=== PATIENT | female | born 1945 | race Caucasian/White ===

== ENCOUNTER 2018-01-06 09:11 | Inpatient (IN) | payer MEDICARE, OTHER ==
--- NOTE | 2018-01-06 09:49 | EDM.PDOC ---
ED HPI GENERAL MEDICAL PROBLEM - General Chief Complaint: General Stated Complaint: cough Time Seen by Provider: 01/06/18 09:20 Source of Information: Reports: Patient History Limitations: Reports: Respiratory Distress - History of Present Illness INITIAL COMMENTS - FREE TEXT/NARRATIVE: Patient is a 72-year-old female who is seen in the ER with chief complaint of shortness of breath this started about a week ago and has progressed today she is hypoxic running saturations around 89 percent Onset: Gradual Duration: Week(s):, Getting Worse Location: Reports: Chest Quality: Reports: Ache, Pressure Severity: Moderate Improves with: Reports: None Worsens with: Reports: Movement (Activities) Associated Symptoms: Reports: Fever/Chills Right Hip Pain Score (Numeric/FACES): 2 Right Ankle Pain Score (Numeric/FACES): 2 - Related Data Allergies Allergy/AdvReac Type Severity Reaction Status Date / Time diphenhydramine Allergy Other Verified 01/06/18 09:17 [From Benadryl] egg Allergy Other Verified 01/06/18 09:17 nitrofurantoin Allergy Rash Verified 01/06/18 09:17 [From Macrodantin] Penicillins Allergy Rash Verified 01/06/18 09:17 pseudoephedrine Allergy Other Verified 01/06/18 09:17 Sulfa (Sulfonamide Allergy Rash Verified 01/06/18 09:17 Antibiotics) tetracycline Allergy Rash Verified 01/06/18 09:17 Home Meds: Home Meds Acetaminophen [Pain Reliever] 1,000 mg PO Q8HR PRN 01/06/18 [History] Calcium Carbonate [Calcium] 1,000 mg PO DAILY 01/06/18 [History] Cholecalciferol (Vitamin D3) [Vitamin D3] 1,000 unit PO DAILY 01/06/18 [History] Doxazosin [Cardura] 4 mg PO DAILY 01/06/18 [History] Garlic 2,000 mg PO DAILY PRN 01/06/18 [History] Ibuprofen 200 mg PO Q8HR PRN 01/06/18 [History] Methylsulfonylmethane [MSM] 1 cap PO DAILY 01/06/18 [History] Social & Family History - Tobacco Use Smoking Status *Q: Never Smoker Second Hand Smoke Exposure: No - Caffeine Use Caffeine Use: Reports: Coffee - Recreational Drug Use Recreational Drug Use: No ED ROS GENERAL - Review of Systems Review Of Systems: See Below Constitutional: Reports: Fever (Low-grade) HEENT: Reports: No Symptoms Respiratory: Reports: Shortness of Breath, Wheezing Cardiovascular: Reports: No Symptoms Endocrine: Reports: No Symptoms GI/Abdominal: Reports: No Symptoms : Reports: No Symptoms Musculoskeletal: Reports: Joint Pain (Right ankle) Skin: Reports: No Symptoms Neurological: Reports: No Symptoms Psychiatric: Reports: No Symptoms Hematologic/Lymphatic: Reports: No Symptoms ED EXAM, GENERAL - Physical Exam Exam: See Below Exam Limited By: No Limitations General Appearance: Alert, WD/WN, No Apparent Distress Ears: Normal External Exam, Normal Canal, Hearing Grossly Normal, Normal TMs Nose: Normal Inspection, Normal Mucosa, No Blood Throat/Mouth: Normal Inspection, Normal Lips, Normal Teeth, Normal Gums, Normal Oropharynx, Normal Voice, No Airway Compromise Head: Atraumatic, Normocephalic Neck: Normal Inspection, Supple, Non-Tender, Full Range of Motion Respiratory/Chest: Decreased Breath Sounds, Wheezing (Expiratory), Stridor ( Inspiratory), Prolonged Expiration Cardiovascular: Regular Rate, Rhythm, No Edema, No Murmur GI/Abdominal: Normal Bowel Sounds, Soft, Non-Tender, No Organomegaly, No Distention, No Abnormal Bruit, No Mass (Female) Exam: Deferred Rectal (Female) Exam: Deferred Back Exam: Normal Inspection, Full Range of Motion, NT Extremities: Normal Inspection, Normal Range of Motion, Non-Tender, Normal Capillary Refill, No Pedal Edema Neurological: Alert, Oriented, CN II-XII Intact, Normal Cognition Psychiatric: Normal Affect, Normal Mood Skin Exam: Warm, Dry, Intact, Normal Color, No Rash Lymphatic: No Adenopathy Course - Vital Signs Last Recorded V/S: Last Vital Signs Temp 99.0 F 01/06/18 09:33 Pulse 91 01/06/18 09:33 Resp 18 01/06/18 09:33 BP 179/78 H 01/06/18 09:33 Pulse Ox 90 L 01/06/18 09:33 - Orders/Labs/Meds Orders: Active Orders 24 hr Category Date Time Status Chest 2V [CR] Stat Exams 01/06/18 09:28 Ordered BASIC METABOLIC PANEL,BMP [CHEM] Stat Lab 01/06/18 09:33 Received Labs: Laboratory Tests 01/06/18 Range/Units 09:33 WBC 4.3 (4.0-10.2) K/uL RBC 4.35 (3.77-5.09) M/uL Hgb 12.5 (11.7-15.5) g/dL Hct 37.4 (34.0-46.0) % MCV 86.0 (84.0-98.0) fL MCH 28.7 (28.2-33.3) pg MCHC 33.4 (31.7-36.0) g/dL RDW 13.7 (11.2-14.1) % Plt Count 167 (150-350) K/uL Neut % (Auto) 73.8 (45.0-80.0) % Lymph % (Auto) 15.2 (10.0-50.0) % [place] % (Auto) 9.6 (2.0-14.0) % Eos % (Auto) 0.9 (0.0-5.0) % Baso % (Auto) 0.5 (0.0-2.0) % Neut # (Auto) 3.17 (1.40-7.00) K/uL Lymph # (Auto) 0.65 (0.50-3.50) K/uL [place] # (Auto) 0.41 (0.00-1.00) K/uL Eos # (Auto) 0.04 (0.00-0.50) K/uL Baso # (Auto) 0.02 (0.00-0.20) K/uL Departure - Departure Time of Disposition: 10:43 Disposition: Refer to Observation Condition: Fair Clinical Impression: Hypoxic, COPD exacerbation - Discharge Information Referrals: Boone Crowell [facility] [Primary Care Provider] - Care Plan Goals: Patient will be admitted to the hospital for treatment of acute COPD with hypoxia - Problem List & Annotations (1) COPD (chronic obstructive pulmonary disease) SNOMED Code(s): 04150001 Code(s): J44.9 - CHRONIC OBSTRUCTIVE PULMONARY DISEASE, UNSPECIFIED Status : Acute Qualifiers: COPD type: COPD with acute exacerbation Qualified Code(s): J44.1 - Chronic obstructive pulmonary disease with (acute) exacerbation (2) COPD exacerbation SNOMED Code(s): 434314613 Code(s): J44.1 - CHRONIC OBSTRUCTIVE PULMONARY DISEASE W (ACUTE) EXACERBATION Status: Acute Annotation/Comment:: 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 Patient is lightheaded (4) Hypokalemia SNOMED Code(s): 60012461 Code(s): E87.6 - HYPOKALEMIA Status: Acute Annotation/Comment:: Will treat her with oral potassium and recheck labs in the morning (5) Hyponatremia SNOMED Code(s): 53951441 Code(s): E87.1 - HYPO-OSMOLALITY AND HYPONATREMIA Status: Acute Annotation/Comment:: Patient given Lasix will probably increase his sodium will put her on a liberal sodium diet - Problem List Review Problem List Initiated/Reviewed/Updated: Yes - My Orders Last 24 Hours: My Active Orders 01/06/18 09:28 Chest 2V [CR] Stat 01/06/18 09:33 BASIC METABOLIC PANEL,BMP [CHEM] Stat - Assessment/Plan Admission H&P: Please use this note as an admission H&P Last 24 Hours: My Active Orders 01/06/18 09:28 Chest 2V [CR] Stat 01/06/18 09:33 BASIC METABOLIC PANEL,BMP [CHEM] Stat Plan: Patient will be admitted to the hospital observation because of hypoxia secondary to COPD
[2018-01-06] MEDS ORDERED: Albuterol/Ipratropium 3.0-0.5 MG/3 ML Neb Soln NEB ONE (09:50)
[2018-01-06 09:52] LABS: CHLORIDE,CL 96 mmol/L (98-107); SODIUM,NA 131 mmol/L (136-145)
[2018-01-06] MEDS ORDERED: Potassium Chloride 10 MEQ Tab.ER PO ONE (10:05)
[2018-01-06] MEDS ORDERED: Furosemide 40 MG/4 ML VIAL IVPUSH ONE (10:06)
[2018-01-06] MEDS: Sodium Chloride 0.9% 10 ML Syringe FLUSH PRN ×3 (10:21→22:40)
[2018-01-06] MEDS ORDERED: methylPREDNISolone Sod Succ 125 MG in Sodium Chloride 0.9% 100 ML IV SCH (12:00)
[2018-01-06] MEDS: methylPREDNISolone Sodium Succinate 125 MG/2 ML SDV IVPUSH SCH ×3 (12:43→22:40)
[2018-01-06] MEDS: Potassium Chloride 10 MEQ Tab.ER PO SCH (18:57)
[2018-01-07] MEDS: methylPREDNISolone Sodium Succinate 125 MG/2 ML SDV IVPUSH SCH ×5 (07:13→21:02)
[2018-01-07] MEDS: Enoxaparin 40 MG/0.4 ML Syringe SUBCUT SCH (07:13)
[2018-01-07] MEDS: Potassium Chloride 10 MEQ Tab.ER PO SCH ×2 (07:27→17:32)
[2018-01-07] MEDS ORDERED: Furosemide 40 MG Tab PO SCH (08:00)
[2018-01-07 08:02] LABS: CHLORIDE,CL 96 mmol/L (98-107); SODIUM,NA 133 mmol/L (136-145)
[2018-01-07] MEDS: Sodium Chloride 0.9% 10 ML Syringe FLUSH PRN ×2 (11:54→21:02)
--- NOTE | 2018-01-07 14:47 | PCM.PN ---
- General Info Date of Service: 01/07/18 Functional Status: Reports: Other (Hypoxia shortness of breath) - Review of Systems General: Reports: No Symptoms HEENT: Reports: No Symptoms Pulmonary: Reports: Shortness of Breath, Wheezing Cardiovascular: Reports: No Symptoms Gastrointestinal: Reports: No Symptoms Genitourinary: Reports: No Symptoms Musculoskeletal: Reports: No Symptoms Skin: Reports: No Symptoms Neurological: Reports: No Symptoms Psychiatric: Reports: No Symptoms - Patient Data Vitals - Most Recent: Last Vital Signs Temp 99 F 01/07/18 12:00 Pulse 103 H 01/07/18 12:00 Resp 20 01/07/18 12:00 BP 155/85 H 01/07/18 12:00 Pulse Ox 94 L 01/07/18 12:00 Weight - Most Recent: 165 lb 4 oz I&O - Last 24 Hours: Intake & Output 01/06/18 01/07/18 01/07/18 22:59 06:59 14:59 Intake Total 794 930 9489 Output Total 350 700 450 Balance -120 -400 1030 Lab Results Last 24 Hours: Laboratory Results - last 24 hr 01/07/18 01/07/18 01/07/18 Range/Units 07:37 07:37 07:37 WBC 6.4 (4.0-10.2) K/uL RBC 4.80 (3.77-5.09) M/uL Hgb 13.7 (11.7-15.5) g/dL Hct 40.7 (34.0-46.0) % MCV 84.8 (84.0-98.0) fL MCH 28.5 (28.2-33.3) pg MCHC 33.7 (31.7-36.0) g/dL RDW 13.7 (11.2-14.1) % Plt Count 229 (150-350) K/uL MPV 9.80 (7.00-11.50) fL Sodium 133 L (136-145) mmol/L Potassium 3.8 (3.5-5.1) mmol/L Chloride 96 L (98-107) mmol/L Carbon Dioxide 28.9 (21.0-32.0) mmol/L BUN 13 (7-18) mg/dL Creatinine 0.60 (0.51-1.17) mg/dL Est Cr Clr Drug Dosing 86.75 mL/min Estimated GFR (MDRD) > 60 mL/min Glucose 161 H (74-106) mg/dL Hemoglobin A1c 6.0 H (4.3-5.7) % Calcium 9.1 (8.5-10.1) mg/dL Med Orders - Current: Current Medications Enoxaparin Sodium (Lovenox) 40 mg SUBCUT DAILY [facility] Last Admin: 01/07/18 07:13 Dose: 40 mg Furosemide (Lasix) 40 mg PO DAILY [facility] Last Admin: 01/07/18 07:13 Dose: 40 mg Methylprednisolone Sodium Succinate (Solu-Medrol) 125 mg IVPUSH QID [facility] Last Admin: 01/07/18 11:54 Dose: 125 mg Potassium Chloride (Klor-Con 10) 20 meq PO BIDMEALS [facility] Last Admin: 01/07/18 07:27 Dose: 20 meq Sodium Chloride (Saline Flush) 10 ml FLUSH ASDIRECTED PRN PRN Reason: Keep Vein Open Last Admin: 01/07/18 11:54 Dose: 10 ml Discontinued Medications Albuterol/Ipratropium (Duoneb 3.0-0.5 Mg/3 Ml) 3 ml NEB ONETIME ONE Stop: 01/06/18 09:51 Last Admin: 01/06/18 09:55 Dose: 3 ml Furosemide (Lasix) 40 mg IVPUSH NOW ONE Stop: 01/06/18 10:07 Last Admin: 01/06/18 10:20 Dose: 40 mg Methylprednisolone Sodium Succinate 125 mg/ Sodium Chloride 101 mls @ 100 mls/ hr IV QID [facility] Last Admin: 01/06/18 12:01 Dose: Not Given Potassium Chloride (Klor-Con 10) 40 meq PO ONETIME ONE Stop: 01/06/18 10:06 Last Admin: 01/06/18 10:19 Dose: 40 meq - Exam Quality Assessment: Supplemental Oxygen General: Alert, Oriented, Cooperative, Moderate Distress HEENT: Pupils Equal, Pupils Reactive, EOMI, Mucous Membr. Moist/[place] Neck: Supple Lungs: Decreased Breath Sounds, Rhonchi, Wheezing (Inspiratory and expiratory) Cardiovascular: Regular Rate, Regular Rhythm GI/Abdominal Exam: Normal Bowel Sounds, Soft, Non-Tender, No Organomegaly, No Distention, No Abnormal Bruit, No Mass, Pelvis Stable (Female) Exam: Deferred Back Exam: Normal Inspection, Full Range of Motion Extremities: Normal Inspection, Normal Range of Motion, Non-Tender, No Pedal Edema, Normal Capillary Refill Skin: Warm, Dry, Intact Neurological: No New Focal Deficit Psy/Mental Status: Alert, Normal Affect, Normal Mood - Problem List & Annotations (1) COPD (chronic obstructive pulmonary disease) SNOMED Code(s): 71248549 Code(s): J44.9 - CHRONIC OBSTRUCTIVE PULMONARY DISEASE, UNSPECIFIED Status : Acute Current Visit: Yes Qualifiers: COPD type: COPD with acute exacerbation Qualified Code(s): J44.1 - Chronic obstructive pulmonary disease with (acute) exacerbation Annotation/Comment:: X-rays today show larger pleural effusion on the right will continue decreasing and consider sending her home tomorrow with oxygen (2) COPD exacerbation SNOMED Code(s): 183981897 Code(s): J44.1 - CHRONIC OBSTRUCTIVE PULMONARY DISEASE W (ACUTE) EXACERBATION Status: Acute Current Visit: Yes Annotation/Comment:: 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 Patient is lightheaded (4) Hypokalemia SNOMED Code(s): 85186535 Code(s): E87.6 - HYPOKALEMIA Status: Acute Current Visit: Yes Annotation/Comment:: Will treat her with oral potassium and recheck labs in the morning (5) Hyponatremia SNOMED Code(s): 78239560 Code(s): E87.1 - HYPO-OSMOLALITY AND HYPONATREMIA Status: Acute Current Visit: Yes Annotation/Comment:: Patient given Lasix will probably increase his sodium will put her on a liberal sodium diet - Problem List Review Problem List Initiated/Reviewed/Updated: Yes - My Orders Last 24 Hours: My Active Orders 01/06/18 17:30 Potassium Chloride [Klor-Con 10] 20 meq PO BIDMEALS 01/07/18 05:11 Chest 2V [CR] Routine 01/07/18 08:00 Enoxaparin [Lovenox] 40 mg SUBCUT DAILY Furosemide [Lasix] 40 mg PO DAILY - Assessment Assessment:: Overall improving still has significant cough and hypoxic saturations in the 80s on room air - Plan Plan:: We'll continue to raising and consider sending her home tomorrow
[2018-01-07] MEDS: Albuterol/Ipratropium 3.0-0.5 MG/3 ML Neb Soln NEB PRN (17:31)
[2018-01-07] MEDS: Furosemide 40 MG/4 ML VIAL IVPUSH SCH (17:31)
[2018-01-08 07:38] LABS: CHLORIDE,CL 98 mmol/L (98-107); SODIUM,NA 134 mmol/L (136-145)
[2018-01-08] MEDS: Potassium Chloride 10 MEQ Tab.ER PO SCH ×2 (08:13→17:42)
[2018-01-08] MEDS: Furosemide 40 MG/4 ML VIAL IVPUSH SCH ×2 (08:17→17:43)
[2018-01-08] MEDS: Sodium Chloride 0.9% 10 ML Syringe FLUSH PRN ×5 (08:22→22:09)
[2018-01-08] MEDS: Enoxaparin 40 MG/0.4 ML Syringe SUBCUT SCH (08:33)
[2018-01-08] MEDS: methylPREDNISolone Sodium Succinate 125 MG/2 ML SDV IVPUSH SCH ×3 (08:39→22:06)
[2018-01-08] MEDS: Albuterol/Ipratropium 3.0-0.5 MG/3 ML Neb Soln NEB PRN (09:34)
--- NOTE | 2018-01-08 10:32 | PCM.PN ---
- General Info Date of Service: 01/08/18 Functional Status: Reports: Other (sob) - Review of Systems General: Reports: Other (hypoxia) HEENT: Reports: No Symptoms Pulmonary: Reports: Shortness of Breath, Cough, Wheezing Cardiovascular: Reports: No Symptoms Gastrointestinal: Reports: No Symptoms Genitourinary: Reports: Frequency, Urgency, Incontinence Musculoskeletal: Reports: No Symptoms Skin: Reports: No Symptoms Neurological: Reports: No Symptoms Psychiatric: Reports: No Symptoms - Patient Data Vitals - Most Recent: Last Vital Signs Temp 98.8 F 01/08/18 08:00 Pulse 78 01/08/18 08:00 Resp 20 01/08/18 08:00 BP 148/85 H 01/08/18 08:00 Pulse Ox 93 L 01/08/18 08:00 Weight - Most Recent: 165 lb 3.995 oz I&O - Last 24 Hours: Intake & Output 01/07/18 01/08/18 01/08/18 22:59 06:59 14:59 Intake Total 360 550 560 Output Total 399 544 3564 Balance -40 -200 -540 Lab Results Last 24 Hours: Laboratory Results - last 24 hr 01/08/18 01/08/18 Range/Units 07:05 07:05 WBC 14.5 H (4.0-10.2) K/uL RBC 4.46 (3.77-5.09) M/uL Hgb 12.8 (11.7-15.5) g/dL Hct 38.3 (34.0-46.0) % MCV 85.9 (84.0-98.0) fL MCH 28.7 (28.2-33.3) pg MCHC 33.4 (31.7-36.0) g/dL RDW 13.7 (11.2-14.1) % Plt Count 248 (150-350) K/uL Neut % (Auto) 86.2 H (45.0-80.0) % Lymph % (Auto) 7.6 L (10.0-50.0) % [place] % (Auto) 6.1 (2.0-14.0) % Eos % (Auto) 0.0 (0.0-5.0) % Baso % (Auto) 0.1 (0.0-2.0) % Neut # (Auto) 12.47 H (1.40-7.00) K/uL Lymph # (Auto) 1.10 (0.50-3.50) K/uL [place] # (Auto) 0.88 (0.00-1.00) K/uL Eos # (Auto) 0.00 (0.00-0.50) K/uL Baso # (Auto) 0.01 (0.00-0.20) K/uL Sodium 134 L (136-145) mmol/L Potassium 4.4 (3.5-5.1) mmol/L Chloride 98 (98-107) mmol/L Carbon Dioxide 28.3 (21.0-32.0) mmol/L BUN 18 (7-18) mg/dL Creatinine 0.66 (0.51-1.17) mg/dL Est Cr Clr Drug Dosing 79.18 mL/min Estimated GFR (MDRD) > 60 mL/min Glucose 164 H (74-106) mg/dL Calcium 8.8 (8.5-10.1) mg/dL Med Orders - Current: Current Medications Albuterol/Ipratropium (Duoneb 3.0-0.5 Mg/3 Ml) 3 ml NEB Q4HRRT PRN PRN Reason: Shortness of Breath Last Admin: 01/08/18 09:34 Dose: 3 ml Enoxaparin Sodium (Lovenox) 40 mg SUBCUT DAILY [facility] Last Admin: 01/08/18 08:33 Dose: 40 mg Furosemide (Lasix) 40 mg IVPUSH BID [facility] Last Admin: 01/08/18 08:17 Dose: 40 mg Methylprednisolone Sodium Succinate (Solu-Medrol) 80 mg IVPUSH Q6H [facility] Potassium Chloride (Klor-Con 10) 20 meq PO BIDMEALS [facility] Last Admin: 01/08/18 08:13 Dose: 20 meq Sodium Chloride (Saline Flush) 10 ml FLUSH ASDIRECTED PRN PRN Reason: Keep Vein Open Last Admin: 01/08/18 08:22 Dose: 10 ml Discontinued Medications Albuterol/Ipratropium (Duoneb 3.0-0.5 Mg/3 Ml) 3 ml NEB ONETIME ONE Stop: 01/06/18 09:51 Last Admin: 01/06/18 09:55 Dose: 3 ml Furosemide (Lasix) 40 mg IVPUSH NOW ONE Stop: 01/06/18 10:07 Last Admin: 01/06/18 10:20 Dose: 40 mg Furosemide (Lasix) 40 mg PO DAILY [facility] Last Admin: 01/07/18 07:13 Dose: 40 mg Methylprednisolone Sodium Succinate 125 mg/ Sodium Chloride 101 mls @ 100 mls/ hr IV QID [facility] Last Admin: 01/06/18 12:01 Dose: Not Given Methylprednisolone Sodium Succinate (Solu-Medrol) 125 mg IVPUSH QID [facility] Last Admin: 01/08/18 08:39 Dose: 125 mg Potassium Chloride (Klor-Con 10) 40 meq PO ONETIME ONE Stop: 01/06/18 10:06 Last Admin: 01/06/18 10:19 Dose: 40 meq - Exam Quality Assessment: Supplemental Oxygen General: Alert, Oriented HEENT: Pupils Equal, Pupils Reactive, EOMI, Mucous Membr. Moist/[place] Neck: Supple Lungs: Decreased Breath Sounds, Rales, Wheezing Cardiovascular: Regular Rate, Regular Rhythm GI/Abdominal Exam: Normal Bowel Sounds, Soft, Non-Tender, No Organomegaly, No Distention, No Abnormal Bruit, No Mass, Pelvis Stable (Female) Exam: Deferred Back Exam: Normal Inspection, Full Range of Motion Extremities: Normal Inspection, Normal Range of Motion, Non-Tender, No Pedal Edema, Normal Capillary Refill Skin: Warm, Dry, Intact Neurological: No New Focal Deficit Psy/Mental Status: Alert, Normal Affect, Normal Mood - Problem List & Annotations (1) COPD (chronic obstructive pulmonary disease) SNOMED Code(s): 74835435 Code(s): J44.9 - CHRONIC OBSTRUCTIVE PULMONARY DISEASE, UNSPECIFIED Status : Acute Current Visit: Yes Qualifiers: COPD type: COPD with acute exacerbation Qualified Code(s): J44.1 - Chronic obstructive pulmonary disease with (acute) exacerbation Annotation/Comment:: X-rays today show larger pleural effusion on the right will continue decreasing and consider sending her home tomorrow with oxygen will continue with antibiotic, steroids and diuresis. 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 Patient is lightheaded (4) Hypokalemia SNOMED Code(s): 99803534 Code(s): E87.6 - HYPOKALEMIA Status: Acute Current Visit: Yes Annotation/Comment:: Will treat her with oral potassium and recheck labs in the morning (5) Hyponatremia SNOMED Code(s): 94198791 Code(s): E87.1 - HYPO-OSMOLALITY AND HYPONATREMIA Status: Acute Current Visit: Yes Annotation/Comment:: Patient given Lasix will probably increase his sodium will put her on a liberal sodium diet - Problem List Review Problem List Initiated/Reviewed/Updated: Yes - My Orders Last 24 Hours: My Active Orders 01/07/18 16:11 Albuterol/Ipratropium [DuoNeb 3.0-0.5 MG/3 ML] 3 ml NEB Q4HRRT PRN 01/07/18 16:12 RT Aerosol Therapy [RC] ASDIRECTED 01/07/18 18:00 Furosemide [Lasix] 40 mg IVPUSH BID 01/08/18 05:11 CXR [Chest 2V] [CR] AM 01/08/18 10:01 Admission Status [Patient Status] [ADT] Routine 01/08/18 10:30 methylPREDNISolone Sod Succ [Solu-MEDROL] 80 mg IVPUSH Q6H - Assessment Assessment:: Overall improving still has significant cough and hypoxic saturations in the 80s on room air - Plan Plan:: We'll continue to raising and consider sending her home tomorrow
[2018-01-08] MEDS: Levofloxacin/Dextrose 5%-Water 500 MG in Premix Bag 1 BAG IV SCH (11:11)
[2018-01-09] MEDS: methylPREDNISolone Sodium Succinate 125 MG/2 ML SDV IVPUSH SCH ×4 (05:04→21:33)
[2018-01-09] MEDS: Sodium Chloride 0.9% 10 ML Syringe FLUSH PRN ×5 (05:05→21:33)
[2018-01-09] MEDS: Furosemide 40 MG/4 ML VIAL IVPUSH SCH ×2 (07:31→17:05)
[2018-01-09] MEDS: Enoxaparin 40 MG/0.4 ML Syringe SUBCUT SCH (07:32)
[2018-01-09] MEDS: Potassium Chloride 10 MEQ Tab.ER PO SCH ×2 (07:33→17:05)
[2018-01-09] MEDS: Levofloxacin/Dextrose 5%-Water 500 MG in Premix Bag 1 BAG IV SCH (10:30)
[2018-01-09] MEDS: Doxazosin 4 MG Tab PO SCH (12:08)
--- NOTE | 2018-01-09 15:06 | PCM.PN ---
- General Info Date of Service: 01/09/18 Admission Dx/Problem (Free Text): Patient is a 72-year-old female who was admitted with CHF today doing better with less shortness of breath Functional Status: Reports: Other (Shortness of breath) - Review of Systems General: Reports: Fatigue, Other HEENT: Reports: No Symptoms Pulmonary: Reports: Shortness of Breath Cardiovascular: Reports: No Symptoms Gastrointestinal: Reports: No Symptoms Genitourinary: Reports: Incontinence Musculoskeletal: Reports: No Symptoms Skin: Reports: No Symptoms Neurological: Reports: No Symptoms Psychiatric: Reports: No Symptoms - Patient Data Vitals - Most Recent: Last Vital Signs Temp 98.6 F 01/09/18 12:00 Pulse 69 01/09/18 12:00 Resp 17 01/09/18 12:00 BP 160/110 H 01/09/18 12:08 Pulse Ox 93 L 01/09/18 12:00 Weight - Most Recent: 165 lb 3.995 oz I&O - Last 24 Hours: Intake & Output 01/09/18 01/09/18 01/09/18 06:59 14:59 22:59 Intake Total 400 1440 Output Total 850 600 Balance -450 840 Med Orders - Current: Current Medications Albuterol/Ipratropium (Duoneb 3.0-0.5 Mg/3 Ml) 3 ml NEB Q4HRRT PRN PRN Reason: Shortness of Breath Last Admin: 01/08/18 09:34 Dose: 3 ml Doxazosin Mesylate (Cardura) 4 mg PO DAILY [facility] Last Admin: 01/09/18 12:08 Dose: 4 mg Enoxaparin Sodium (Lovenox) 40 mg SUBCUT DAILY [facility] Last Admin: 01/09/18 07:32 Dose: 40 mg Furosemide (Lasix) 40 mg IVPUSH BID [facility] Last Admin: 01/09/18 07:31 Dose: 40 mg Levofloxacin/Dextrose 500 mg/ (Premix) 100 mls @ 100 mls/hr IV Q24H [facility] Last Admin: 01/09/18 10:30 Dose: 100 mls/hr Methylprednisolone Sodium Succinate (Solu-Medrol) 80 mg IVPUSH Q6H [facility] Last Admin: 01/09/18 10:30 Dose: 80 mg Potassium Chloride (Klor-Con 10) 20 meq PO BIDMEALS [facility] Last Admin: 01/09/18 07:33 Dose: 20 meq Sodium Chloride (Saline Flush) 10 ml FLUSH ASDIRECTED PRN PRN Reason: Keep Vein Open Last Admin: 01/09/18 10:30 Dose: 10 ml Discontinued Medications Albuterol/Ipratropium (Duoneb 3.0-0.5 Mg/3 Ml) 3 ml NEB ONETIME ONE Stop: 01/06/18 09:51 Last Admin: 01/06/18 09:55 Dose: 3 ml Furosemide (Lasix) 40 mg IVPUSH NOW ONE Stop: 01/06/18 10:07 Last Admin: 01/06/18 10:20 Dose: 40 mg Furosemide (Lasix) 40 mg PO DAILY [facility] Last Admin: 01/07/18 07:13 Dose: 40 mg Methylprednisolone Sodium Succinate 125 mg/ Sodium Chloride 101 mls @ 100 mls/ hr IV QID [facility] Last Admin: 01/06/18 12:01 Dose: Not Given Methylprednisolone Sodium Succinate (Solu-Medrol) 125 mg IVPUSH QID [facility] Last Admin: 01/08/18 08:39 Dose: 125 mg Potassium Chloride (Klor-Con 10) 40 meq PO ONETIME ONE Stop: 01/06/18 10:06 Last Admin: 01/06/18 10:19 Dose: 40 meq - Exam Quality Assessment: Supplemental Oxygen General: Alert, Oriented HEENT: Pupils Equal, Pupils Reactive, EOMI, Mucous Membr. Moist/[place] Neck: Supple Lungs: Rales (In bases much improved) Cardiovascular: Regular Rate, Regular Rhythm GI/Abdominal Exam: Normal Bowel Sounds, Soft, Non-Tender, No Organomegaly, No Distention, No Abnormal Bruit, No Mass, Pelvis Stable (Female) Exam: Deferred Back Exam: Normal Inspection, Full Range of Motion Extremities: Normal Inspection, Normal Range of Motion, Non-Tender, No Pedal Edema, Normal Capillary Refill Skin: Warm, Dry, Intact Neurological: No New Focal Deficit Psy/Mental Status: Alert, Normal Affect, Normal Mood - Problem List & Annotations (1) COPD (chronic obstructive pulmonary disease) SNOMED Code(s): 15622904 Code(s): J44.9 - CHRONIC OBSTRUCTIVE PULMONARY DISEASE, UNSPECIFIED Status : Acute Current Visit: Yes Qualifiers: COPD type: COPD with acute exacerbation Qualified Code(s): J44.1 - Chronic obstructive pulmonary disease with (acute) exacerbation Annotation/Comment:: X-rays today show larger pleural effusion on the right will continue decreasing and consider sending her home tomorrow with oxygen will continue with antibiotic, steroids and diuresis. 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 Patient is lightheaded (4) Hypokalemia SNOMED Code(s): 46946427 Code(s): E87.6 - HYPOKALEMIA Status: Acute Current Visit: Yes Annotation/Comment:: Will treat her with oral potassium and recheck labs in the morning (5) Hyponatremia SNOMED Code(s): 20775578 Code(s): E87.1 - HYPO-OSMOLALITY AND HYPONATREMIA Status: Acute Current Visit: Yes Annotation/Comment:: Patient given Lasix will probably increase his sodium will put her on a liberal sodium diet (6) CHF (congestive heart failure) SNOMED Code(s): 34731112 Code(s): I50.9 - HEART FAILURE, UNSPECIFIED Status: Acute Current Visit: Yes Annotation/Comment:: Will continue to reason the patient and consider sending her home tomorrow on oxygen if unable to wean - Problem List Review Problem List Initiated/Reviewed/Updated: Yes - My Orders Last 24 Hours: My Active Orders 01/08/18 16:00 methylPREDNISolone Sod Succ [Solu-MEDROL] 80 mg IVPUSH Q6H 01/09/18 11:45 Doxazosin [Cardura] 4 mg PO DAILY 01/09/18 14:56 Communication Order [RC] ROUTINE 01/10/18 05:11 Chest 2V [CR] AM BASIC METABOLIC PANEL,BMP [CHEM] AM CBC WITH AUTO DIFF [HEME] AM PRO B-TYPE NATRIUR PEPT,BNPPRO [CHEM] Routine - Assessment Assessment:: Overall improving still has significant cough and hypoxic saturations in the 80s on room air - Plan Plan:: We'll continue to raising and consider sending her home tomorrow
[2018-01-10] MEDS: methylPREDNISolone Sodium Succinate 125 MG/2 ML SDV IVPUSH SCH ×3 (04:01→16:10)
[2018-01-10] MEDS: Sodium Chloride 0.9% 10 ML Syringe FLUSH PRN ×5 (04:01→16:10)
[2018-01-10] MEDS ORDERED: Acetaminophen 325 MG Tab PO PRN (04:04)
[2018-01-10] MEDS: Albuterol/Ipratropium 3.0-0.5 MG/3 ML Neb Soln NEB PRN (04:16)
[2018-01-10] MEDS: Enoxaparin 40 MG/0.4 ML Syringe SUBCUT SCH (07:42)
[2018-01-10] MEDS: Potassium Chloride 10 MEQ Tab.ER PO SCH (07:44)
[2018-01-10 07:47] LABS: CHLORIDE,CL 98 mmol/L (98-107); SODIUM,NA 136 mmol/L (136-145)
[2018-01-10] MEDS: Doxazosin 4 MG Tab PO SCH (07:49)
[2018-01-10] MEDS: Furosemide 40 MG/4 ML VIAL IVPUSH SCH (08:06)
[2018-01-10] MEDS: Levofloxacin/Dextrose 5%-Water 500 MG in Premix Bag 1 BAG IV SCH (10:22)
[2018-01-10] MEDS ORDERED: Acetaminophen 500 MG Tab PO PRN (12:59)
[2018-01-10] MEDS ORDERED: Ibuprofen 200 MG Tab PO PRN (12:59)
[2018-01-10] MEDS ORDERED: GARLIC 2000 MG PO PRN (12:59)
--- NOTE | 2018-01-10 12:59 | PCM.DCSUM1 ---
Discharge Summary - Discharge Data Discharge Date: 01/10/18 Discharge Disposition: Home, Self-Care 01 Condition: Good - Discharge Diagnosis/Problem(s) (1) COPD (chronic obstructive pulmonary disease) SNOMED Code(s): 43316027 ICD Code: J44.9 - CHRONIC OBSTRUCTIVE PULMONARY DISEASE, UNSPECIFIED Status : Acute Current Visit: Yes Problem Details: Chest x-ray shows continually improving at this time patient is maintaining her saturations above 90 and when she ambulates is still above 90 will discharge her home follow up with primary in a week. 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 Patient is lightheaded (4) Hypokalemia SNOMED Code(s): 82048432 ICD Code: E87.6 - HYPOKALEMIA Status: Acute Current Visit: Yes Problem Details: Will treat her with oral potassium and recheck labs in the morning (5) Hyponatremia SNOMED Code(s): 72308267 ICD Code: E87.1 - HYPO-OSMOLALITY AND HYPONATREMIA Status: Acute Current Visit: Yes Problem Details: Patient given Lasix will probably increase his sodium will put her on a liberal sodium diet (6) CHF (congestive heart failure) SNOMED Code(s): 55589040 ICD Code: I50.9 - HEART FAILURE, UNSPECIFIED Status: Acute Current Visit : Yes Problem Details: Will continue to reason the patient and consider sending her home tomorrow on oxygen if unable to wean - Discharge Plan Home Medications: Home Meds Acetaminophen [Pain Reliever] 1,000 mg PO Q8HR PRN 01/06/18 [History] Calcium Carbonate [Calcium] 1,000 mg PO DAILY 01/06/18 [History] Cholecalciferol (Vitamin D3) [Vitamin D3] 1,000 unit PO DAILY 01/06/18 [History] Doxazosin [Cardura] 4 mg PO DAILY 01/06/18 [History] Garlic 2,000 mg PO DAILY PRN 01/06/18 [History] Ibuprofen 200 mg PO Q8HR PRN 01/06/18 [History] Methylsulfonylmethane [MSM] 1 cap PO DAILY 01/06/18 [History] Patient Handouts: Hypoxemia, Chronic Obstructive Pulmonary Disease, Easy-to- Read Forms: ED Department Discharge Referrals: Boone Crowell [employer] [Primary Care Provider] - - Discharge Summary/Plan Comment DC Time >30 min.: No Discharge Summary/Plan Comment: Patient will be sent home on steroids and Lasix follow-up in a week with primary - Patient Data Vitals - Most Recent: Last Vital Signs Temp 98.8 F 01/10/18 12:00 Pulse 94 01/10/18 12:00 Resp 20 01/10/18 12:00 BP 138/83 01/10/18 12:00 Pulse Ox 94 L 01/10/18 12:00 Weight - Most Recent: 165 lb 3.995 oz I&O - Last 24 hours: Intake & Output 01/09/18 01/10/18 01/10/18 22:59 06:59 14:59 Intake Total 345 970 8790 Output Total 1500 500 Balance -3055 335 9544 Lab Results - Last 24 hrs: Laboratory Results - last 24 hr 01/10/18 01/10/18 Range/Units 06:56 06:56 WBC 12.2 H (4.0-10.2) K/uL RBC 4.69 (3.77-5.09) M/uL Hgb 13.4 (11.7-15.5) g/dL Hct 40.8 (34.0-46.0) % MCV 87.0 (84.0-98.0) fL MCH 28.6 (28.2-33.3) pg MCHC 32.8 (31.7-36.0) g/dL RDW 13.7 (11.2-14.1) % Plt Count 248 (150-350) K/uL Neut % (Auto) 88.6 H (45.0-80.0) % Lymph % (Auto) 5.5 L (10.0-50.0) % [place] % (Auto) 5.8 (2.0-14.0) % Eos % (Auto) 0.0 (0.0-5.0) % Baso % (Auto) 0.1 (0.0-2.0) % Neut # (Auto) 10.85 H (1.40-7.00) K/uL Lymph # (Auto) 0.67 (0.50-3.50) K/uL [place] # (Auto) 0.71 (0.00-1.00) K/uL Eos # (Auto) 0.00 (0.00-0.50) K/uL Baso # (Auto) 0.01 (0.00-0.20) K/uL Sodium 136 (136-145) mmol/L Potassium 4.0 (3.5-5.1) mmol/L Chloride 98 (98-107) mmol/L Carbon Dioxide 30.3 (21.0-32.0) mmol/L BUN 28 H (7-18) mg/dL Creatinine 0.83 (0.51-1.17) mg/dL Est Cr Clr Drug Dosing 62.96 mL/min Estimated GFR (MDRD) > 60 mL/min Glucose 187 H (74-106) mg/dL Calcium 8.5 (8.5-10.1) mg/dL NT-Pro-B Natriuret Pep 256 H (0-125) pg/mL Med Orders - Current: Current Medications Acetaminophen (Tylenol) 650 mg PO Q4H PRN PRN Reason: Fever/Pain Last Admin: 01/10/18 04:16 Dose: 650 mg Albuterol/Ipratropium (Duoneb 3.0-0.5 Mg/3 Ml) 3 ml NEB Q4HRRT PRN PRN Reason: Shortness of Breath Last Admin: 01/10/18 04:16 Dose: 3 ml Doxazosin Mesylate (Cardura) 4 mg PO DAILY [facility] Last Admin: 01/10/18 07:49 Dose: 4 mg Enoxaparin Sodium (Lovenox) 40 mg SUBCUT DAILY [facility] Last Admin: 01/10/18 07:42 Dose: 40 mg Furosemide (Lasix) 40 mg IVPUSH BID [facility] Last Admin: 01/10/18 08:06 Dose: 40 mg Levofloxacin/Dextrose 500 mg/ (Premix) 100 mls @ 100 mls/hr IV Q24H [facility] Last Admin: 01/10/18 10:22 Dose: 100 mls/hr Methylprednisolone Sodium Succinate (Solu-Medrol) 80 mg IVPUSH Q6H [facility] Last Admin: 01/10/18 10:21 Dose: 80 mg Potassium Chloride (Klor-Con 10) 20 meq PO BIDMEALS [facility] Last Admin: 01/10/18 07:44 Dose: 20 meq Sodium Chloride (Saline Flush) 10 ml FLUSH ASDIRECTED PRN PRN Reason: Keep Vein Open Last Admin: 01/10/18 10:25 Dose: 10 ml Discontinued Medications Albuterol/Ipratropium (Duoneb 3.0-0.5 Mg/3 Ml) 3 ml NEB ONETIME ONE Stop: 01/06/18 09:51 Last Admin: 01/06/18 09:55 Dose: 3 ml Furosemide (Lasix) 40 mg IVPUSH NOW ONE Stop: 01/06/18 10:07 Last Admin: 01/06/18 10:20 Dose: 40 mg Furosemide (Lasix) 40 mg PO DAILY [facility] Last Admin: 01/07/18 07:13 Dose: 40 mg Methylprednisolone Sodium Succinate 125 mg/ Sodium Chloride 101 mls @ 100 mls/ hr IV QID [facility] Last Admin: 01/06/18 12:01 Dose: Not Given Methylprednisolone Sodium Succinate (Solu-Medrol) 125 mg IVPUSH QID [facility] Last Admin: 01/08/18 08:39 Dose: 125 mg Potassium Chloride (Klor-Con 10) 40 meq PO ONETIME ONE Stop: 01/06/18 10:06 Last Admin: 01/06/18 10:19 Dose: 40 meq - Exam Quality Assessment: Denies: Supplemental Oxygen General: Reports: Alert, Oriented HEENT: Reports: Pupils Equal, Pupils Reactive, EOMI, Mucous Membr. Moist/[place] Neck: Reports: Supple Lungs: Reports: Clear to Auscultation, Normal Respiratory Effort, Rales (Basis) Cardiovascular: Reports: Regular Rate, Regular Rhythm GI/Abdominal Exam: Normal Bowel Sounds, Soft, Non-Tender, No Organomegaly, No Distention, No Abnormal Bruit, No Mass, Pelvis Stable (Female) Exam: Normal External Exam, Normal Speculum Exam, Normal Bimanual Exam Rectal (Female) Exam: Normal Exam, Normal Rectal Tone Back Exam: Reports: Normal Inspection, Full Range of Motion Extremities: Normal Inspection, Normal Range of Motion, Non-Tender, No Pedal Edema, Normal Capillary Refill Neurological: Reports: No New Focal Deficit Psy/Mental Status: Reports: Alert, Normal Affect, Normal Mood
[2018-01-11] MEDS ORDERED: Doxazosin 4 MG Tab PO SCH (08:00)
[2018-01-11] MEDS ORDERED: Cholecalciferol (Vitamin D3) 1,000 Unit Tab PO SCH (08:00)
[2018-01-11] MEDS ORDERED: Calcium Carbonate 500 MG Tab.Chew PO SCH (08:00)
== END 2018-01-10 17:30 | disposition home or self-care (01) | DRG 191 ==
LOC: LL.ED 09:11 → LL.MS 10:37 → OBSVTOIN 01-08 10:01
PROVIDERS: ADMIT Family Medicine; ATTEND Family Medicine
DX: J44.1 Chronic obstructive pulmonary disease with (acute) exacerbation (principal); E87.1 Hypo-osmolality and hyponatremia; R09.02 Hypoxemia; E87.6 Hypokalemia; I50.9 Heart failure, unspecified; R53.83 Other fatigue; R32 Unspecified urinary incontinence; R50.9 Fever, unspecified; M25.571 Pain in right ankle and joints of right foot; Z88.0 Allergy status to penicillin; Z88.2 Allergy status to sulfonamides; Z88.8 Allergy status to other drugs, medicaments and biological substances; R06.02 Shortness of breath; R05 Cough; R06.2 Wheezing; R06.03 Acute respiratory distress; Z88.1 Allergy status to other antibiotic agents; Z91.012 Allergy to eggs; Z79.899 Other long term (current) drug therapy
CPT/HCPCS: 36415; 71046; 80048; 83036; 83880; 85025; 85027; 94640; 94761; 96372; 96374; 96375; 96376; 99285; A9270-GY; G0378; J1650; J1940; J1956; J2930; J7050

== ENCOUNTER 2018-01-24 08:32 | Emergency (ER) | payer MEDICARE, OTHER ==
--- NOTE | 2018-01-24 09:19 | EDM.PDOC ---
ED HPI GENERAL MEDICAL PROBLEM - General Chief Complaint: Respiratory Problem Stated Complaint: Short of Breath, Cough Time Seen by Provider: 01/24/18 08:55 Source of Information: Reports: Patient History Limitations: Reports: No Limitations - History of Present Illness INITIAL COMMENTS - FREE TEXT/NARRATIVE: Patient presents due to concern that her cough appears to be worsening and low grade fever of 99.5 Recently admitted for pneumonia. Discharged on Levaquin. Finished antibiotics and was feeling better. Over the last 24 hours she has felt a little SOB. No other obvious changes. No history of smoking but was exposed to smoke/dust via jobs over the years. Has some level of COPD due to this but does not require inhalers. Upper Back Pain Score (Numeric/FACES): 2 - Related Data Allergies Allergy/AdvReac Type Severity Reaction Status Date / Time ciprofloxacin [From Cipro] Allergy Other Verified 01/24/18 08:39 diphenhydramine Allergy Other Verified 01/24/18 08:39 [From Benadryl] egg Allergy Other Verified 01/24/18 08:39 nitrofurantoin Allergy Rash Verified 01/24/18 08:39 [From Macrodantin] Penicillins Allergy Rash Verified 01/24/18 08:39 pseudoephedrine Allergy Other Verified 01/24/18 08:39 Sulfa (Sulfonamide Allergy Rash Verified 01/24/18 08:39 Antibiotics) tetracycline Allergy Rash Verified 01/24/18 08:39 Home Meds: Home Meds Acetaminophen [Pain Reliever] 1,000 mg PO Q8HR PRN 01/06/18 [History] Calcium Carbonate [Calcium] 1,000 mg PO DAILY 01/06/18 [History] Cholecalciferol (Vitamin D3) [Vitamin D3] 1,000 unit PO DAILY 01/06/18 [History] Doxazosin [Cardura] 4 mg PO DAILY 01/06/18 [History] Garlic 2,000 mg PO DAILY PRN 01/06/18 [History] Ibuprofen 200 mg PO Q8HR PRN 01/06/18 [History] Methylsulfonylmethane [MSM] 1 cap PO DAILY 01/06/18 [History] Furosemide [Lasix] 40 mg PO DAILY 30 Days #30 tab 01/10/18 [Rx] Albuterol [Ventolin HFA] 1 puff INH Q4H PRN #1 puff 01/24/18 [Rx] Doxycycline Calcium [IMW: Doxycycline] 100 mg PO DAILY #14 cap 01/24/18 [Rx] Lactobacillus Combo No.10 [Probiotic] 1 cap PO DAILY 01/24/18 [History] Potassium Chloride 40 meq PO DAILY 01/24/18 [History] Prednisone [IMW: predniSONE] 20 mg PO WITHBREAKFAST #4 tab 01/24/18 [Rx] Past Medical History HEENT History: Reports: Allergic Rhinitis, Sinusitis Cardiovascular History: Reports: Heart Failure, Other (See Below) (pleural effusions and cardiac enlargement noted on xrays.) Respiratory History: Reports: COPD APPLIQUER ZIGZAG History: 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 Denies: Chills, Malaise, Weakness, Diaphoresis, Decreased Appetite, Weight Loss, Weight Gain HEENT: Reports: Rhinitis (mild post nasal drip). Denies: Ear Pain, Throat Pain , Vision Change Respiratory: Reports: Shortness of Breath, Cough. Denies: Wheezing, Pleuritic Chest Pain, Sputum, Hemoptysis Cardiovascular: Reports: No Symptoms. Denies: Chest Pain, Lightheadedness, Palpitations, Syncope GI/Abdominal: Reports: Nausea (at times). Denies: Abdominal Pain, Constipation , Diarrhea, Hematemesis, Hematochezia, Vomiting Musculoskeletal: Reports: No Symptoms (no acute changes) Skin: Reports: No Symptoms Neurological: Reports: No Symptoms Psychiatric: Reports: No Symptoms ED EXAM, GENERAL - Physical Exam Exam: See Below Exam Limited By: No Limitations General Appearance: Alert, WD/WN, No Apparent Distress Eye Exam: Bilateral Eye: EOMI, PERRL Ears: Normal External Exam Nose: Normal Inspection Throat/Mouth: Normal Inspection, Normal Lips, Normal Voice, No Airway Compromise Head: Atraumatic, Normocephalic Neck: Normal Inspection, Supple, Non-Tender, Full Range of Motion. No: Lymphadenopathy (L), Lymphadenopathy (R) Respiratory/Chest: No Respiratory Distress, Lungs Clear, Normal Breath Sounds, No Accessory Muscle Use, Chest Non-Tender Cardiovascular: Normal Peripheral Pulses, Regular Rate, Rhythm, No Edema, No Murmur Peripheral Pulses: 2+: Radial (L), Radial (R) GI/Abdominal: Normal Bowel Sounds, Soft, Non-Tender, No Distention (Female) Exam: Deferred Rectal (Female) Exam: Deferred Back Exam: Normal Inspection, Full Range of Motion. No: CVA Tenderness (L), CVA Tenderness (R), Muscle Spasm, Paraspinal Tenderness, Vertebral Tenderness Extremities: Normal Inspection, Normal Range of Motion, Non-Tender, No Pedal Edema, Normal Capillary Refill Neurological: Alert, Oriented, Normal Cognition, Normal Gait, No Motor/Sensory Deficits Psychiatric: Normal Affect, Normal Mood Skin Exam: Warm, Dry, Intact, Normal Color Course - Vital Signs Last Recorded V/S: Last Vital Signs Temp 37.7 C 01/24/18 08:35 Pulse 80 01/24/18 09:25 Resp 16 01/24/18 09:25 BP 155/84 H 01/24/18 09:25 Pulse Ox 95 01/24/18 09:25 - Orders/Labs/Meds Orders: Active Orders 24 hr Category Date Time Status Chest 2V [CR] Stat Exams 01/24/18 09:16 Taken CULTURE BLOOD [BC] Stat Lab 01/24/18 09:24 Received CULTURE BLOOD [BC] Stat Lab 01/24/18 09:38 Received Blood Culture x2 Reflex Set [OM.PC] Stat Oth 01/24/18 09:15 Ordered Labs: Laboratory Tests 01/24/18 01/24/18 01/24/18 Range/Units 08:40 09:24 09:24 WBC 5.2 (4.0-10.2) K/uL RBC 4.10 (3.77-5.09) M/uL Hgb 11.7 (11.7-15.5) g/dL Hct 36.0 (34.0-46.0) % MCV 87.8 (84.0-98.0) fL MCH 28.5 (28.2-33.3) pg MCHC 32.5 (31.7-36.0) g/dL RDW 14.3 H (11.2-14.1) % Plt Count 203 (150-350) K/uL Neut % (Auto) 81.3 H (45.0-80.0) % Lymph % (Auto) 8.5 L (10.0-50.0) % [place] % (Auto) 7.9 (2.0-14.0) % Eos % (Auto) 1.3 (0.0-5.0) % Baso % (Auto) 1.0 (0.0-2.0) % Neut # (Auto) 4.22 (1.40-7.00) K/uL Lymph # (Auto) 0.44 L (0.50-3.50) K/uL [place] # (Auto) 0.41 (0.00-1.00) K/uL Eos # (Auto) 0.07 (0.00-0.50) K/uL Baso # (Auto) 0.05 (0.00-0.20) K/uL Sodium 139 (136-145) mmol/L Potassium 3.8 (3.5-5.1) mmol/L Chloride 104 (98-107) mmol/L Carbon Dioxide 25.0 (21.0-32.0) mmol/L BUN 10 (7-18) mg/dL Creatinine 0.64 (0.51-1.17) mg/dL Est Cr Clr Drug Dosing 81.33 mL/min Estimated GFR (MDRD) > 60 mL/min Glucose 109 H (74-106) mg/dL Calcium 8.5 (8.5-10.1) mg/dL Magnesium 2.1 (1.8-2.4) mg/dL Total Bilirubin 0.4 (0.2-1.0) mg/dL AST 27 (15-37) U/L ALT 31 (12-78) U/L Alkaline Phosphatase 187 H (46-116) IU/L Total Protein 6.5 (6.4-8.2) g/dL Albumin 2.8 L (3.4-5.0) g/dL Specimen Type Urinblad Urine Color Yellow Urine Appearance Clear Urine pH 8.5 (5.0-9.0) Ur Specific [place] 1.020 (1.005-1.030) Urine Protein Negative (NEGATIVE) mg/dL Urine Glucose (UA) Negative (NEGATIVE) mg/dL Urine Ketones Negative (NEGATIVE) mg/dL Urine Occult Blood Negative (NEGATIVE) Urine Nitrite Negative (NEGATIVE) Urine Bilirubin Negative (NEGATIVE) Urine Urobilinogen 0.2 (0.2-1.0) E.U./dL Ur Leukocyte Esterase Trace H (NEGATIVE) Urine RBC 0-5 /HPF Urine WBC 0-5 /HPF Ur Epithelial Cells Few /LPF Urine Bacteria Rare (NONE TO FEW) /HPF - Radiology Interpretation Free Text/Narrative:: Chest xray overall improving since most recent xray from inpatient admission. Left pleural effusion appears to have resolved. Right pleural effusion and right lower infiltrate have improved also but small amount still appears to be present. - Re-Assessments/Exams Free Text/Narrative Re-Assessment/Exam: Labs performed. Overall unremarkable. WBC normal but slight left shift noted. Given patient's recent pneumonia/pleural effusions cannot say if this is recurrence of previous infection or if it is due to new (viral) respiratory illness. Risks/benefits of second round of antibiotics discussed with patient, including potential CDiff complication from multiple antibiotic courses. Ultimately a decision was made to place patient on Doxy as well as Prednisone/ PRN Albuterol. She is to follow up as needed if there are problems. Otherwise should follow up in clinic Saturday or Saturday. Departure - Departure Time of Disposition: :54 Disposition: Home, Self-Care 01 Condition: Good Clinical Impression: Pneumonia Qualifiers: Pneumonia type: due to unspecified organism Laterality: right Lung location: lower lobe of lung Qualified Code(s): J18.1 - Lobar pneumonia, unspecified organism - Discharge Information Prescriptions: Albuterol [Ventolin HFA] 1 puff INH Q4H PRN #1 puff PRN Reason: Cough Doxycycline Calcium [IMW: Doxycycline] 100 mg PO DAILY #14 cap Prednisone [IMW: predniSONE] 20 mg PO WITHBREAKFAST #4 tab Instructions: Albuterol inhalation aerosol, Prednisolone tablets, Doxylamine tablets Referrals: Boone Crowell NP [Primary Care Provider] - Forms: ED Department Discharge Additional Instructions: See how you feel over the next few days. The albuterol may make you feel jumpy/ elevate your heartrate. We cannot say at this time if you have a new cold/ virus or if this is a worsening of your previously treated pneumonia. Please make a follow up clinic appointment to get rechecked on Saturday. Follow up otherwise as needed if you have worsening problems over the weekend. - My Orders Last 24 Hours: My Active Orders 01/24/18 09:15 Blood Culture x2 Reflex Set [OM.PC] Stat 01/24/18 09:16 Chest 2V [CR] Stat 01/24/18 09:24 CULTURE BLOOD [BC] Stat 01/24/18 09:38 CULTURE BLOOD [BC] Stat - Assessment/Plan Last 24 Hours: My Active Orders 01/24/18 09:15 Blood Culture x2 Reflex Set [OM.PC] Stat 01/24/18 09:16 Chest 2V [CR] Stat 01/24/18 09:24 CULTURE BLOOD [BC] Stat 01/24/18 09:38 CULTURE BLOOD [BC] Stat
[2018-01-24 09:46] LABS: CHLORIDE,CL 104 mmol/L (98-107); SODIUM,NA 139 mmol/L (136-145)
== END 2018-01-24 10:15 | disposition home or self-care (01) ==
LOC: LL.ED 08:32
DX: J18.9 Pneumonia, unspecified organism (principal); Z88.1 Allergy status to other antibiotic agents; Z88.8 Allergy status to other drugs, medicaments and biological substances; Z91.012 Allergy to eggs; Z88.0 Allergy status to penicillin; Z88.2 Allergy status to sulfonamides; Z79.899 Other long term (current) drug therapy
CPT/HCPCS: 36415; 71046; 80053; 81001; 83735; 85025; 87040; 99285

== ENCOUNTER 2019-01-19 14:00 | Emergency (ER) | payer MEDICARE, OTHER ==
--- NOTE | 2019-01-19 14:47 | EDM.PDOC ---
ED HPI GENERAL MEDICAL PROBLEM - General Chief Complaint: Genitourinary Problem Stated Complaint: pink/red urine Time Seen by Provider: 01/19/19 14:41 Source of Information: Reports: Patient History Limitations: Reports: No Limitations - History of Present Illness INITIAL COMMENTS - FREE TEXT/NARRATIVE: Patient is a 73-year-old who has stage IV breast cancer with metastasis to the liver and bone patient seen in the ER because of urine turning pain is the first time she sneezes and started today Onset: Today Duration: Hour(s): Location: Reports: Other (Genitourinary) Quality: Reports: Other (No pain no discomfort) Severity: Mild Improves with: Reports: Medication Worsens with: Reports: Other (None) - Related Data Allergies Allergy/AdvReac Type Severity Reaction Status Date / Time ciprofloxacin [From Cipro] Allergy Other Verified 01/19/19 15:15 diphenhydramine Allergy Other Verified 01/19/19 15:15 [From Benadryl] egg Allergy Other Verified 01/19/19 15:15 Influenza Virus Vaccines Allergy Other Verified 01/19/19 15:15 nitrofurantoin Allergy Rash Verified 01/19/19 15:15 [From Macrodantin] Penicillins Allergy Rash Verified 01/19/19 15:15 pseudoephedrine Allergy Other Verified 01/19/19 15:15 Sulfa (Sulfonamide Allergy Rash Verified 01/19/19 15:15 Antibiotics) tetracycline Allergy Rash Verified 01/19/19 15:15 Home Meds: Home Meds Acetaminophen [Pain Reliever] 1,000 mg PO Q8HR PRN 01/06/18 [History] Cholecalciferol (Vitamin D3) [Vitamin D3] 1,000 unit PO DAILY 01/06/18 [History] Doxazosin [Cardura] 4 mg PO BEDTIME 01/06/18 [History] Ibuprofen 200 mg PO Q8HR PRN 01/06/18 [History] Lactobacillus Combo No.10 [Probiotic] 1 cap PO DAILY 01/24/18 [History] Potassium Chloride 20 meq PO DAILY 01/24/18 [History] Calcium Carb/D3/Magnesium/Zinc [Gerardo Mag Zinc + D Tablet] 1 each PO DAILY [History] Furosemide [Lasix] 20 mg PO DAILY PRN 08/22/18 [History] Simethicone [Gas-X] 125 mg PO Q6H PRN 08/22/18 [History] Ondansetron [Zofran Odt] 8 mg PO Q6H PRN 10/23/18 [History] Apixaban [Eliquis] 5 mg PO BID 01/19/19 [History] Lactase [Lactaid] 3,000 unit PO ASDIRECTED PRN 01/19/19 [History] cephALEXin [Keflex] 500 mg PO Q8H #21 cap 01/19/19 [Rx] Past Medical History HEENT History: Reports: Allergic Rhinitis, Impaired Vision, Sinusitis, Other ( See Below) Other HEENT History: Patient wears glasses. Cardiovascular History: Reports: Cardiomyopathy, Heart Failure, Hypertension, Other (See Below) Other Cardiovascular History: Recurrent CHF including pleural effusions with cardiomegaly by chest x-rays. Chronic d-dimer elevation initially diagnosed on 08/22/18 with negative CTA of the chest as below. Respiratory History: Reports: Asthma, Bronchitis, Recurrent, COPD, Pneumonia, Recurrent, Other (See Below) Other Respiratory History: Asthma since childhood. COPD. Gastrointestinal History: Reports: Cholelithiasis, Hiatal Hernia, Other (See Below) Other Gastrointestinal History: Nonsymptomatic cholelithiasis. Genitourinary History: Reports: Retention, Urinary, UTI, Recurrent, Other (See Below) Other Genitourinary History: History of acute urinary retention in 2008 however nonproblematic at this time. Benign bilateral renal cysts. 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 Full term without complications during pregnancies or deliveries. Recurrent nonspecific right-sided lymphatic mastitis with bilateral fibrocystic breast disease. Musculoskeletal History: Reports: Arthritis, Back Pain, Chronic, Fracture, Neck Pain, Chronic, Osteoarthritis, Osteoporosis, Other (See Below) Other Musculoskeletal History: History of non-diagnosed silent right ankle fracture at about age 17. Osteoporosis by x-rays. Kyphosis. Neurological History: Reports: Concussion, Head Trauma, Other (See Below) Other Neuro History: Concussion at age 19. Psychiatric History: Reports: None Endocrine/Metabolic History: Reports: Hypothyroidism, Osteopenia, Osteoporosis, Other (See Below) Other Endocrine/Metabolic History: Hypokalemia. Hyponatremia. Mild borderline hypothyroidism and goiter diagnosed on 08/22/18. Hematologic History: Reports: Anemia, B12 Deficiency, Other (See Below) Other Hematologic History: Severe pernicious anemia. History of leukopenia. Immunologic History: Reports: Immunosuppression, Other (See Below) Other Immunologic History: Breast cancer as below. Oncologic (Cancer) History: Reports: Breast, Metastatic, Other (See Below) Other Oncologic History: Right-sided Allie grade 2 estrogen and progesterone positive invasive ductal breast cancer including metastases to the liver and bone initially diagnosed on 08/23/18. Dermatologic History: Reports: None, Eczema - Infectious Disease History Infectious Disease History: Reports: Chicken Pox, Measles, Mumps - Past Surgical History Head Surgeries/Procedures: Reports: None Female Surgical History: Reports: Tubal Ligation, Other (See Below) Other Female Surgeries/Procedures: Bilateral tubal ligation at age 34. Oncologic Surgical History: Reports: None - Past Imaging History Past Imaging History: Reports: CAT Scan, Ultrasound Social & Family History - Family History HEENT: Reports: None Cardiac: Reports: Arrhythmia, CAD, Hypertension, UT, Other (See Below) Other Cardiac Family History: Paternal grandmother with open heart surgery at age 42 for unknown reason with history of coronary artery disease and recurrent MIs with fatal UT at age 70. Father with fatal unknown type of arrhythmia at age 72 with previous history of UT in his early 70s. Hypertension in paternal grandmother. 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 GI: Reports: None : Reports: None OBGYN: Reports: Dysfunctional uterine bleeding, Other (See Below) Other OBGYN Family History: Mother with hysterectomy for probable dysfunctional uterine bleeding Musculoskeletal: Reports: Arthritis, Gout, Other (See Below) Other Musculoskeletal Family History: Maternal uncle with gout Neurological: Reports: CVA, Other (See Below) Other Neurological Family History: Maternal grandmother with recurrent CVAs in her 90s eventually fatal at age 96. Psychiatric: Reports: Anxiety, Depression, Other (See Below) Other Psychiatric Family History: Mother with anxiety depression disorder. Endocrine/Metabolic: Reports: Diabetes, type II, IDDM, Other (See Below) Other Endocrine/Metabolic Family History: Mother, maternal grandmother, and paternal grandmother with IDDM. Hematologic: Reports: None Immunologic: Reports: None Dermatologic: Reports: Psoriasis, Other (See Below) Other Dermatologic Family History: Father with psoriasis. Oncologic: Reports: Skin, Other (See Below) Other Oncologic Family History: Father with recurrent basal cell carcinomas. - Caffeine Use Caffeine Use: Reports: Coffee (One cup per day), Tea (1 Per day). 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[employer]) ED ROS GENERAL - Review of Systems Review Of Systems: See Below Constitutional: Reports: Fatigue, Diaphoresis, Other HEENT: Reports: No Symptoms Respiratory: Reports: No Symptoms Cardiovascular: Reports: No Symptoms Endocrine: Reports: Fatigue GI/Abdominal: Reports: No Symptoms : Reports: Hematuria Musculoskeletal: Reports: No Symptoms Skin: Reports: No Symptoms Neurological: Reports: No Symptoms Psychiatric: Reports: No Symptoms Hematologic/Lymphatic: Reports: No Symptoms Immunologic: Reports: No Symptoms ED EXAM, GENERAL - Physical Exam Exam: See Below Exam Limited By: No Limitations General Appearance: Alert, WD/WN, No Apparent Distress Ears: Normal External Exam, Normal Canal, Hearing Grossly Normal, Normal TMs Ear Exam: Bilateral Ear: Auricle Normal, Canal Normal, TM normal Nose: Normal Inspection, Normal Mucosa, No Blood Throat/Mouth: Normal Inspection, Normal Lips, Normal Teeth, Normal Gums, Normal Oropharynx, Normal Voice, No Airway Compromise Head: Atraumatic, Normocephalic Neck: Normal Inspection, Supple, Non-Tender, Full Range of Motion Respiratory/Chest: No Respiratory Distress, Lungs Clear, Normal Breath Sounds, No Accessory Muscle Use, Chest Non-Tender Cardiovascular: Normal Peripheral Pulses, Regular Rate, Rhythm, No Edema, No Gallop, No JVD, No Murmur, No Rub GI/Abdominal: Normal Bowel Sounds, Soft, Non-Tender, No Organomegaly, No Distention, No Abnormal Bruit, No Mass (Female) Exam: Normal External Exam, Adnexal Mass, Other (Prolapsed uterus) Rectal (Female) Exam: Normal Exam, Normal Rectal Tone Back Exam: Normal Inspection, Full Range of Motion, NT Extremities: Normal Inspection, Normal Range of Motion, Non-Tender, Normal Capillary Refill, No Pedal Edema Psychiatric: Normal Affect, Normal Mood Course - Vital Signs Last Recorded V/S: Last Vital Signs Temp 98.5 F 01/19/19 14:11 Pulse 92 01/19/19 14:11 Resp 19 01/19/19 14:11 BP 104/69 01/19/19 14:11 Pulse Ox 99 01/19/19 14:11 - Orders/Labs/Meds Orders: Active Orders 24 hr Category Date Time Status Insert Urinary Catheter [OM.PC] Stat Care 01/19/19 14:23 Ordered Urinary Catheter Assessment [RC] ASDIRECTED Care 01/19/19 14:25 Ordered UA W/MICROSCOPIC [URIN] Stat Lab 01/19/19 14:23 Ordered Departure - Departure Time of Disposition: 15:27 Disposition: Home, Self-Care 01 Condition: Good Clinical Impression: UTI, Urinary tract infectious disease - Discharge Information *PRESCRIPTION DRUG MONITORING PROGRAM REVIEWED*: No *COPY OF PRESCRIPTION DRUG MONITORING REPORT IN PATIENT SANDY: No Referrals: Maru Wood, AUTOMATIC SPLICING MACHINE OPERATOR [Primary Care Provider] - Care Plan Goals: And will be started on Keflex 500 3 times a day for 7 days patient is allergic to penicillin but I think at this point we have very few antibiotics that we can use and there is only a 5% reaction will go ahead and continue her Keflex - My Orders Last 24 Hours: My Active Orders 01/19/19 14:23 Insert Urinary Catheter [OM.PC] Stat UA W/MICROSCOPIC [URIN] Stat 01/19/19 14:25 Urinary Catheter Assessment [RC] ASDIRECTED - Assessment/Plan Last 24 Hours: My Active Orders 01/19/19 14:23 Insert Urinary Catheter [OM.PC] Stat UA W/MICROSCOPIC [URIN] Stat 01/19/19 14:25 Urinary Catheter Assessment [RC] ASDIRECTED
== END 2019-01-19 15:50 | disposition home or self-care (01) ==
LOC: LL.ED 14:00
DX: N39.0 Urinary tract infection, site not specified (principal); C50.919 Malignant neoplasm of unspecified site of unspecified female breast; C78.7 Secondary malignant neoplasm of liver and intrahepatic bile duct; I11.0 Hypertensive heart disease with heart failure; I50.9 Heart failure, unspecified; J45.909 Unspecified asthma, uncomplicated; Z88.1 Allergy status to other antibiotic agents; Z88.0 Allergy status to penicillin; Z79.899 Other long term (current) drug therapy
CPT/HCPCS: 51701; 81001; 87086; 87088; 87186; 99283

== ENCOUNTER 2019-02-08 14:47 | Emergency (ER) | payer MEDICARE, OTHER ==
--- NOTE | 2019-02-08 15:16 | EDM.PDOC ---
ED HPI GENERAL MEDICAL PROBLEM - General Chief Complaint: General Stated Complaint: weakness, diarrhea Time Seen by Provider: 02/08/19 15:00 Source of Information: Reports: Patient - History of Present Illness INITIAL COMMENTS - FREE TEXT/NARRATIVE: Patient is a 73-year-old female with known history of breast cancer with metastasis to bone and liver recently admitted [facility] with bowel obstruction generalized weakness pain not eating well patient was discharged 5 days after admission home today states that she can't sleep at night she was very uncomfortable she couldn't do anything for herself at this time patient is a good candidate for admission to [facility]. Onset: Gradual Duration: Day(s):, Getting Worse Location: Reports: Generalized Quality: Reports: Ache, Other (Patient classify her pain about a 4 out of 10) Severity: Moderate Improves with: Reports: Rest Worsens with: Reports: Other, Movement Associated Symptoms: Reports: Fever/Chills, Nausea/Vomiting, Shortness of Breath , Weakness Abdominal Pain Score (Numeric/FACES): 4 - Related Data Allergies Allergy/AdvReac Type Severity Reaction Status Date / Time ciprofloxacin [From Cipro] Allergy Other Verified 02/08/19 14:52 diphenhydramine Allergy Other Verified 02/08/19 14:52 [From Benadryl] egg Allergy Other Verified 02/08/19 14:52 Influenza Virus Vaccines Allergy Other Verified 02/08/19 14:52 nitrofurantoin Allergy Rash Verified 02/08/19 14:52 [From Macrodantin] Penicillins Allergy Rash Verified 02/08/19 14:52 pseudoephedrine Allergy Other Verified 02/08/19 14:52 Sulfa (Sulfonamide Allergy Rash Verified 02/08/19 14:52 Antibiotics) tetracycline Allergy Rash Verified 02/08/19 14:52 Home Meds: Home Meds Acetaminophen [Pain Reliever] 500 mg PO Q4HR PRN 01/06/18 [History] Potassium Chloride 20 meq PO QAM 01/24/18 [History] Apixaban [Eliquis] 5 mg PO QAM 01/19/19 [History] Lactase [Lactaid] 3,000 unit PO ASDIRECTED PRN 01/19/19 [History] Anastrozole [Arimidex] 1 mg PO QAM 02/08/19 [History] Calcium Carbonate/Vitamin D3 [Calcium 500 + Vit D Caplet] 1 tab PO TID 02/08/19 [History] Cyanocobalamin (Vitamin B-12) [Vitamin B-12] 5,000 mcg PO QAM 02/08/19 [History] Doxazosin Mesylate [Cardura] 2 mg PO QAM 02/08/19 [History] Furosemide [Lasix] 40 mg PO BID 02/08/19 [History] Magnesium Oxide 250 mg PO QAM 02/08/19 [History] Midodrine 2.5 mg PO BID 02/08/19 [History] Multivitamins [Tab-A-Tran] 1 tab PO QAM 02/08/19 [History] Prochlorperazine Maleate [Compazine] 10 mg PO QID PRN 02/08/19 [History] Sennosides/Docusate Sodium [Senna-S] 2 tab PO [id number] 02/08/19 [History] Simethicone 160 mg PO Q4H PRN 02/08/19 [History] Past Medical History HEENT History: Reports: Allergic Rhinitis, Impaired Vision, Sinusitis, Other ( See Below) Other HEENT History: Patient wears glasses. Cardiovascular History: Reports: Cardiomyopathy, Heart Failure, Hypertension, Other (See Below) Other Cardiovascular History: Recurrent CHF including pleural effusions with cardiomegaly by chest x-rays. Chronic d-dimer elevation initially diagnosed on 08/22/18 with negative CTA of the chest as below. Respiratory History: Reports: Asthma, Bronchitis, Recurrent, COPD, Pneumonia, Recurrent, Other (See Below) Other Respiratory History: Asthma since childhood. COPD. Gastrointestinal History: Reports: Cholelithiasis, Hiatal Hernia, Other (See Below) Other Gastrointestinal History: Nonsymptomatic cholelithiasis. Genitourinary History: Reports: Retention, Urinary, UTI, Recurrent, Other (See Below) Other Genitourinary History: History of acute urinary retention in 2008 however nonproblematic at this time. Benign bilateral renal cysts. 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 Full term without complications during pregnancies or deliveries. Recurrent nonspecific right-sided lymphatic mastitis with bilateral fibrocystic breast disease. Musculoskeletal History: Reports: Arthritis, Back Pain, Chronic, Fracture, Neck Pain, Chronic, Osteoarthritis, Osteoporosis, Other (See Below) Other Musculoskeletal History: History of non-diagnosed silent right ankle fracture at about age 17. Osteoporosis by x-rays. Kyphosis. Neurological History: Reports: Concussion, Head Trauma, Other (See Below) Other Neuro History: Concussion at age 19. Psychiatric History: Reports: None Endocrine/Metabolic History: Reports: Hypothyroidism, Osteopenia, Osteoporosis, Other (See Below) Other Endocrine/Metabolic History: Hypokalemia. Hyponatremia. Mild borderline hypothyroidism and goiter diagnosed on 08/22/18. Hematologic History: Reports: Anemia, B12 Deficiency, Other (See Below) Other Hematologic History: Severe pernicious anemia. History of leukopenia. Immunologic History: Reports: Immunosuppression, Other (See Below) Other Immunologic History: Breast cancer as below. Oncologic (Cancer) History: Reports: Breast, Metastatic, Other (See Below) Other Oncologic History: Right-sided [place] grade 2 estrogen and progesterone positive invasive ductal breast cancer including metastases to the liver and bone initially diagnosed on 08/23/18. Dermatologic History: Reports: None, Eczema - Infectious Disease History Infectious Disease History: Reports: Chicken Pox, Measles, Mumps - Past Surgical History Head Surgeries/Procedures: Reports: None Female Surgical History: Reports: Tubal Ligation, Other (See Below) Other Female Surgeries/Procedures: Bilateral tubal ligation at age 34. Oncologic Surgical History: Reports: None - Past Imaging History Past Imaging History: Reports: CAT Scan, Ultrasound Social & Family History - Family History HEENT: Reports: None Cardiac: Reports: Arrhythmia, CAD, Hypertension, MN, Other (See Below) Other Cardiac Family History: Paternal grandmother with open heart surgery at age 42 for unknown reason with history of coronary artery disease and recurrent MIs with fatal MN at age 70. Father with fatal unknown type of arrhythmia at age 72 with previous history of MN in his early 70s. Hypertension in paternal grandmother. 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 GI: Reports: None : Reports: None OBGYN: Reports: Dysfunctional uterine bleeding, Other (See Below) Other OBGYN Family History: Mother with hysterectomy for probable dysfunctional uterine bleeding Musculoskeletal: Reports: Arthritis, Gout, Other (See Below) Other Musculoskeletal Family History: Maternal uncle with gout Neurological: Reports: CVA, Other (See Below) Other Neurological Family History: Maternal grandmother with recurrent CVAs in her 90s eventually fatal at age 96. Psychiatric: Reports: Anxiety, Depression, Other (See Below) Other Psychiatric Family History: Mother with anxiety depression disorder. Endocrine/Metabolic: Reports: Diabetes, type II, IDDM, Other (See Below) Other Endocrine/Metabolic Family History: Mother, maternal grandmother, and paternal grandmother with IDDM. Hematologic: Reports: None Immunologic: Reports: None Dermatologic: Reports: Psoriasis, Other (See Below) Other Dermatologic Family History: Father with psoriasis. Oncologic: Reports: Skin, Other (See Below) Other Oncologic Family History: Father with recurrent basal cell carcinomas. - Caffeine Use Caffeine Use: Reports: Coffee (One cup per day), Tea (1 Per day). 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[employer]) ED ROS GENERAL - Review of Systems Review Of Systems: See Below Constitutional: Reports: Fever, Chills HEENT: Reports: No Symptoms Respiratory: Reports: Shortness of Breath Cardiovascular: Reports: No Symptoms Endocrine: Reports: No Symptoms GI/Abdominal: Reports: Abdominal Pain, Anorexia, Diarrhea, Decreased Appetite : Reports: Urinary Retention Musculoskeletal: Reports: No Symptoms Skin: Reports: No Symptoms Neurological: Reports: No Symptoms Psychiatric: Reports: No Symptoms Hematologic/Lymphatic: Reports: No Symptoms ED EXAM, GENERAL - Physical Exam Exam: See Below Exam Limited By: No Limitations General Appearance: Anxious, Mild Distress Ears: Normal External Exam Ear Exam: Bilateral Ear: Auricle Normal, Canal Normal, TM normal Nose: Normal Inspection, Normal Mucosa, No Blood Throat/Mouth: Normal Inspection, Normal Lips, Normal Teeth, Normal Gums, Normal Oropharynx, Normal Voice, No Airway Compromise Head: Atraumatic, Normocephalic Neck: Normal Inspection, Supple, Non-Tender, Full Range of Motion Respiratory/Chest: No Respiratory Distress, Lungs Clear, Normal Breath Sounds, No Accessory Muscle Use, Chest Non-Tender Cardiovascular: Normal Peripheral Pulses, Regular Rate, Rhythm, No Edema, No Gallop, No JVD, No Murmur, No Rub GI/Abdominal: Normal Bowel Sounds, Soft, Rigid, Tender (Female) Exam: Deferred Rectal (Female) Exam: Deferred Back Exam: Normal Inspection, Full Range of Motion, NT Extremities: Normal Inspection, Normal Range of Motion, Non-Tender, Normal Capillary Refill, No Pedal Edema Neurological: Alert, Oriented, CN II-XII Intact, Normal Cognition, Normal Gait, Normal Reflexes, No Motor/Sensory Deficits Psychiatric: Normal Affect, Normal Mood Skin Exam: Warm, Dry, Intact, Normal Color, No Rash Lymphatic: No Adenopathy Course - Vital Signs Last Recorded V/S: Last Vital Signs Temp 100.2 F 02/08/19 15:10 Pulse 110 H 02/08/19 15:10 Resp 20 02/08/19 15:10 BP 115/56 L 02/08/19 15:10 Pulse Ox 100 02/08/19 15:10 - Orders/Labs/Meds Orders: Active Orders 24 hr Category Date Time Status Abdomen Pelvis w Cont [CT] Stat Exams 02/08/19 15:09 Ordered Chest 2V [CR] Stat Exams 02/08/19 15:43 Ordered CULTURE BLOOD [BC] Stat Lab 02/08/19 15:10 Received CULTURE BLOOD [BC] Stat Lab 02/08/19 15:17 Received CULTURE URINE [RM] Stat Lab 02/08/19 14:51 Results Blood Culture x2 Reflex Set [OM.PC] Stat Oth 02/08/19 15:09 Ordered Blood Culture x2 Reflex Set [OM.PC] Stat Oth 02/08/19 15:42 Ordered Labs: Laboratory Tests 02/08/19 02/08/19 02/08/19 Range/Units 14:50 15:00 15:00 WBC 17.7 H (4.0-10.2) K/uL RBC 3.70 L (3.77-5.09) M/uL Hgb 11.1 L (11.7-15.5) g/dL Hct 35.1 (34.0-46.0) % MCV 94.9 (84.0-98.0) fL MCH 30.0 (28.2-33.3) pg MCHC 31.6 L (31.7-36.0) g/dL RDW 17.8 H (11.2-14.1) % Plt Count 229 (150-350) K/uL Neut % (Auto) 83.6 H (45.0-80.0) % Lymph % (Auto) 7.3 L (10.0-50.0) % [place] % (Auto) 9.0 (2.0-14.0) % Eos % (Auto) 0.0 (0.0-5.0) % Baso % (Auto) 0.1 (0.0-2.0) % Neut # (Auto) 14.77 H (1.40-7.00) K/uL Lymph # (Auto) 1.28 (0.50-3.50) K/uL [place] # (Auto) 1.58 H (0.00-1.00) K/uL Eos # (Auto) 0.00 (0.00-0.50) K/uL Baso # (Auto) 0.02 (0.00-0.20) K/uL Sodium 132 L D (136-145) mmol/L Potassium 3.7 (3.5-5.1) mmol/L Chloride 100 (98-107) mmol/L Carbon Dioxide 22.1 (21.0-32.0) mmol/L BUN 22 H (7-18) mg/dL Creatinine 0.66 (0.51-1.17) mg/dL Est Cr Clr Drug Dosing 69.33 mL/min Estimated GFR (MDRD) > 60 mL/min Glucose 123 H (74-106) mg/dL Lactic Acid (0.4-2.0) mmol/L Calcium 6.1 L* D (8.5-10.1) mg/dL Total Bilirubin 1.1 H (0.2-1.0) mg/dL AST 23 (15-37) U/L ALT 21 (12-78) U/L Alkaline Phosphatase 223 H (46-116) IU/L Total Protein 4.7 L (6.4-8.2) g/dL Albumin 1.6 L (3.4-5.0) g/dL Specimen Type [place] Urine Color [place] Urine Appearance Turbid Urine pH 5.5 (5.0-9.0) Ur Specific [place] >= 1.030 (1.005-1.030) Urine Protein 100 H (NEGATIVE) mg/dL Urine Glucose (UA) Negative (NEGATIVE) mg/dL Urine Ketones Trace H (NEGATIVE) mg/dL Urine Occult Blood Large H (NEGATIVE) Urine Nitrite Positive H (NEGATIVE) Urine Bilirubin Moderate H (NEGATIVE) Urine Urobilinogen 0.2 (0.2-1.0) E.U./dL Ur Leukocyte Esterase Trace H (NEGATIVE) Urine RBC 30-40 H /HPF Urine WBC 0-5 /HPF Ur Epithelial Cells Occasional /LPF Amorphous Sediment Many H (0/HPF) /HPF Urine Bacteria Moderate H (NONE TO FEW) /HPF Urinalysis Comment 02/08/19 Range/Units 15:10 WBC (4.0-10.2) K/uL RBC (3.77-5.09) M/uL Hgb (11.7-15.5) g/dL Hct (34.0-46.0) % MCV (84.0-98.0) fL MCH (28.2-33.3) pg MCHC (31.7-36.0) g/dL RDW (11.2-14.1) % Plt Count (150-350) K/uL Neut % (Auto) (45.0-80.0) % Lymph % (Auto) (10.0-50.0) % [place] % (Auto) (2.0-14.0) % Eos % (Auto) (0.0-5.0) % Baso % (Auto) (0.0-2.0) % Neut # (Auto) (1.40-7.00) K/uL Lymph # (Auto) (0.50-3.50) K/uL [place] # (Auto) (0.00-1.00) K/uL Eos # (Auto) (0.00-0.50) K/uL Baso # (Auto) (0.00-0.20) K/uL Sodium (136-145) mmol/L Potassium (3.5-5.1) mmol/L Chloride (98-107) mmol/L Carbon Dioxide (21.0-32.0) mmol/L BUN (7-18) mg/dL Creatinine (0.51-1.17) mg/dL Est Cr Clr Drug Dosing mL/min Estimated GFR (MDRD) mL/min Glucose (74-106) mg/dL Lactic Acid 0.9 (0.4-2.0) mmol/L Calcium (8.5-10.1) mg/dL Total Bilirubin (0.2-1.0) mg/dL AST (15-37) U/L ALT (12-78) U/L Alkaline Phosphatase (46-116) IU/L Total Protein (6.4-8.2) g/dL Albumin (3.4-5.0) g/dL Specimen Type Urine Color Urine Appearance Urine pH (5.0-9.0) Ur Specific [place] (1.005-1.030) Urine Protein (NEGATIVE) mg/dL Urine Glucose (UA) (NEGATIVE) mg/dL Urine Ketones (NEGATIVE) mg/dL Urine Occult Blood (NEGATIVE) Urine Nitrite (NEGATIVE) Urine Bilirubin (NEGATIVE) Urine Urobilinogen (0.2-1.0) E.U./dL Ur Leukocyte Esterase (NEGATIVE) Urine RBC /HPF Urine WBC /HPF Ur Epithelial Cells /LPF Amorphous Sediment (0/HPF) /HPF Urine Bacteria (NONE TO FEW) /HPF Urinalysis Comment Departure - Departure Time of Disposition: 16:45 Disposition: DC/Tfer W/I Hosp To Swing 61 Clinical Impression: Breast cancer metastasized to liver - Discharge Information *PRESCRIPTION DRUG MONITORING PROGRAM REVIEWED*: Not Applicable *COPY OF PRESCRIPTION DRUG MONITORING REPORT IN PATIENT SANDY: Not Applicable Referrals: 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 Wood 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 [Primary Care Provider] - Forms: ED Department Discharge - Problem List & Annotations (1) Abdominal pain SNOMED Code(s): 96387888 Code(s): R10.9 - UNSPECIFIED ABDOMINAL PAIN Status: Acute Annotation/ Comment:: Patient admitted to [place] 5 days ago with abdominal pain and obstipation doing better Qualifiers: Abdominal location: generalized Qualified Code(s): R10.84 - Generalized abdominal pain (2) Abdominal pain SNOMED Code(s): 69282058 Code(s): R10.9 - UNSPECIFIED ABDOMINAL PAIN Status: Acute Qualifiers: Abdominal location: generalized Qualified Code(s): R10.84 - Generalized abdominal pain (3) Breast cancer metastasized to liver SNOMED Code(s): 017612854, 903133852 Code(s): C50.919 - MALIGNANT NEOPLASM OF UNSP SITE OF UNSPECIFIED FEMALE BREAST; C78.7 - SECONDARY MALIG NEOPLASM OF LIVER AND INTRAHEPATIC BILE DUCT Status: Acute Qualifiers: Laterality: right Qualified Code(s): C50.911 - Malignant neoplasm of unspecified site of right female breast; C78.7 - Secondary malignant neoplasm of liver and intrahepatic bile duct (4) Fever and chills SNOMED Code(s): 391002561 Code(s): R50.9 - FEVER, UNSPECIFIED Status: Acute - Problem List Review Problem List Initiated/Reviewed/Updated: Yes - My Orders Last 24 Hours: My Active Orders 02/08/19 14:51 CULTURE URINE [RM] Stat 02/08/19 15:09 Abdomen Pelvis w Cont [CT] Stat Blood Culture x2 Reflex Set [OM.PC] Stat 02/08/19 15:10 CULTURE BLOOD [BC] Stat 02/08/19 15:17 CULTURE BLOOD [BC] Stat 02/08/19 15:42 Blood Culture x2 Reflex Set [OM.PC] Stat 02/08/19 15:43 Chest 2V [CR] Stat - Assessment/Plan Admission H&P: Please use this note as an admission H&P Last 24 Hours: My Active Orders 02/08/19 14:51 CULTURE URINE [RM] Stat 02/08/19 15:09 Abdomen Pelvis w Cont [CT] Stat Blood Culture x2 Reflex Set [OM.PC] Stat 02/08/19 15:10 CULTURE BLOOD [BC] Stat 02/08/19 15:17 CULTURE BLOOD [BC] Stat 02/08/19 15:42 Blood Culture x2 Reflex Set [OM.PC] Stat 02/08/19 15:43 Chest 2V [CR] Stat Plan: Patient will be admitted to [facility] for care for pain control and strengthening.
[2019-02-08 15:21] LABS: CHLORIDE,CL 100 mmol/L (98-107); SODIUM,NA 132 mmol/L (136-145)
== END 2019-02-08 16:45 | disposition swing bed (61) ==
LOC: LL.ED 14:47
DX: C50.911 Malignant neoplasm of unspecified site of right female breast (principal); C78.7 Secondary malignant neoplasm of liver and intrahepatic bile duct; C79.51 Secondary malignant neoplasm of bone; I11.0 Hypertensive heart disease with heart failure; I50.9 Heart failure, unspecified; Z98.51 Tubal ligation status; Z88.2 Allergy status to sulfonamides; Z87.01 Personal history of pneumonia (recurrent); Z87.440 Personal history of urinary (tract) infections; Z88.0 Allergy status to penicillin; Z88.7 Allergy status to serum and vaccine; Z88.1 Allergy status to other antibiotic agents
CPT/HCPCS: 36415; 80053; 81001; 83605; 85025; 87040; 87086; 87088; 87186; 99285

== ENCOUNTER 2019-02-08 16:36 | Inpatient (IN) | payer MEDICARE, OTHER ==
[2019-02-08] MEDS ORDERED: Acetaminophen 325 MG Tab PO PRN (16:50)
[2019-02-08] MEDS ORDERED: ACETAMINOPHEN 500 MG PO PRN (16:59)
[2019-02-08] MEDS ORDERED: Simethicone 80 MG Tab.Chew PO PRN (16:59)
[2019-02-08] MEDS ORDERED: LACTASE 3000 UNIT PO PRN (16:59)
[2019-02-08] MEDS ORDERED: Sodium Chloride 0.9% 10 ML Syringe FLUSH PRN (17:08)
[2019-02-08] MEDS ORDERED: cefTRIAXone 2 GM Vial IVPUSH SCH (18:00)
[2019-02-08] MEDS ORDERED: Prochlorperazine 5 MG Tab PO PRN (18:45)
[2019-02-08] MEDS: Midodrine 5 MG Tab PO SCH (19:45)
[2019-02-08] MEDS: Calcium Carbonate/Vitamin D3 1500 MG-400 Units Tab PO SCH (19:46)
[2019-02-08] MEDS: Furosemide 40 MG Tab PO SCH (19:46)
[2019-02-09] MEDS ORDERED: HYDROmorphone 1 MG/ML Syringe IVPUSH ONE (07:21)
--- NOTE | 2019-02-09 07:28 | PCM.SN ---
- Free Text/Narrative Note: Patient is a 73-year-old who was admitted yesterday in 2 the custodial as a swing bed it was noted that the Hawk was not draining by the night nurse and the head nurse came in evaluated patient and change the Hawk was a Hawk was changed the catheter was not draining and in the nurses noted only a scant amount of urine in the catheter at this time they called me to troubleshoot noticed that the Hawk was in good place decided to change it but for a bigger one so 14-gauge was inserted appropriate place was noted there was no urine water leaking through the catheter at this time was noted that there was no urine out of catheter therefore I went ahead and scanned into the ultrasound noted that the head of the catheter was in good place and inflated but no drainage at this time patient is very uncomfortable so Diogo was contacted and an attempt to speak to urology done with no response at this time I talked to the ER doctor and will send her straight to the ER.
[2019-02-09 07:46] LABS: CHLORIDE,CL 101 mmol/L (98-107); SODIUM,NA 133 mmol/L (136-145)
[2019-02-09] MEDS ORDERED: Cyanocobalamin (Vitamin B12) 1,000 MCG Tab PO SCH (08:00)
[2019-02-09] MEDS ORDERED: Potassium Chloride 20 MEQ Tab.ER PO SCH (08:00)
[2019-02-09] MEDS ORDERED: Magnesium Oxide 400 MG Tab PO SCH (08:00)
[2019-02-09] MEDS ORDERED: Anastrozole 1 MG Tab PO SCH (08:00)
[2019-02-09] MEDS ORDERED: Doxazosin 2 MG Tab PO SCH (08:00)
[2019-02-09] MEDS ORDERED: Multivitamin Tab PO SCH (08:00)
[2019-02-09] MEDS ORDERED: Apixaban 5 MG Tab PO SCH (08:00)
[2019-02-09] MEDS: Furosemide 40 MG Tab PO SCH ×2 (09:05→11:09)
[2019-02-09] MEDS: Calcium Carbonate/Vitamin D3 1500 MG-400 Units Tab PO SCH ×2 (09:27→11:09)
[2019-02-09] MEDS: Midodrine 5 MG Tab PO SCH (09:28)
--- NOTE | 2019-02-09 15:37 | PCM.DCSUM1 ---
Discharge Summary - Hospital Course Free Text/Narrative:: Patient admitted with generalized weakness fatigue and pain control. Patient has stage 4 breast CA metasized to the liver and bone. Patient has free fluid around bladder will be transferred to [place] for further evaluation and care. - Discharge Data Discharge Date: 02/09/19 Discharge Disposition: DC/Tfer to Acute Hospital 02 Condition: Good - Patient Summary/Data Consults: Consultations 02/08/19 16:50 Consult to Case Management/Keno Clerk [CONS] Routine OT Evaluation and Treatment [CONS] Routine PT Evaluation and Treatment [CONS] Routine - Patient Instructions Diet: Usual Diet as Tolerated Activity: As Tolerated Driving: Do Not Drive Showering/Bathing: May Shower Notify Provider of: Fever, Increased Pain, Nausea and/or Vomiting - Discharge Plan *PRESCRIPTION DRUG MONITORING PROGRAM REVIEWED*: Not Applicable *COPY OF PRESCRIPTION DRUG MONITORING REPORT IN PATIENT SANDY: Not Applicable Home Medications: Home Meds Acetaminophen [Pain Reliever] 500 mg PO Q4HR PRN 01/06/18 [History] Potassium Chloride 20 meq PO QAM 01/24/18 [History] Apixaban [Eliquis] 5 mg PO QAM 01/19/19 [History] Lactase [Lactaid] 3,000 unit PO ASDIRECTED PRN 01/19/19 [History] Anastrozole [Arimidex] 1 mg PO QAM 02/08/19 [History] Calcium Carbonate/Vitamin D3 [Calcium 500 + Vit D Caplet] 1 tab PO TID 02/08/19 [History] Cyanocobalamin (Vitamin B-12) [Vitamin B-12] 5,000 mcg PO QAM 02/08/19 [History] Doxazosin Mesylate [Cardura] 2 mg PO QAM 02/08/19 [History] Furosemide [Lasix] 40 mg PO BID 02/08/19 [History] Magnesium Oxide 250 mg PO QAM 02/08/19 [History] Midodrine 2.5 mg PO BID 02/08/19 [History] Multivitamins [Tab-A-Tran] 1 tab PO QAM 02/08/19 [History] Prochlorperazine Maleate [Compazine] 10 mg PO QID PRN 02/08/19 [History] Sennosides/Docusate Sodium [Senna-S] 2 tab PO [id number] 02/08/19 [History] Simethicone 160 mg PO Q4H PRN 02/08/19 [History] - Discharge Summary/Plan Comment DC Time >30 min.: No - General Info Date of Service: 02/09/19 - Review of Systems General: Reports: Weakness, Fatigue HEENT: Reports: No Symptoms Pulmonary: Reports: No Symptoms Gastrointestinal: Reports: Abdominal Pain Genitourinary: Reports: No Symptoms Musculoskeletal: Reports: No Symptoms Skin: Reports: No Symptoms Neurological: Reports: No Symptoms Psychiatric: Reports: No Symptoms - Patient Data Vitals - Most Recent: Last Vital Signs Temp 98.6 F 02/09/19 09:02 Pulse 87 02/09/19 09:02 Resp 16 02/09/19 09:02 BP 93/58 L 02/09/19 09:02 Pulse Ox 94 L 02/09/19 09:02 Weight - Most Recent: 130 lb I&O - Last 24 hours: Intake & Output 02/09/19 02/09/19 02/09/19 06:59 14:59 22:59 Intake Total 200 Output Total 350 Balance -150 Lab Results - Last 24 hrs: Laboratory Results - last 24 hr 02/09/19 02/09/19 Range/Units 07:00 07:00 WBC 14.9 H (4.0-10.2) K/uL RBC 3.41 L (3.77-5.09) M/uL Hgb 10.4 L (11.7-15.5) g/dL Hct 32.6 L (34.0-46.0) % MCV 95.6 (84.0-98.0) fL MCH 30.5 (28.2-33.3) pg MCHC 31.9 (31.7-36.0) g/dL RDW 17.8 H (11.2-14.1) % Plt Count 242 (150-350) K/uL Neut % (Auto) 83.3 H (45.0-80.0) % Lymph % (Auto) 8.3 L (10.0-50.0) % [place] % (Auto) 8.3 (2.0-14.0) % Eos % (Auto) 0.0 (0.0-5.0) % Baso % (Auto) 0.1 (0.0-2.0) % Neut # (Auto) 12.41 H (1.40-7.00) K/uL Lymph # (Auto) 1.24 (0.50-3.50) K/uL [place] # (Auto) 1.23 H (0.00-1.00) K/uL Eos # (Auto) 0.00 (0.00-0.50) K/uL Baso # (Auto) 0.02 (0.00-0.20) K/uL Sodium 133 L (136-145) mmol/L Potassium 3.5 (3.5-5.1) mmol/L Chloride 101 (98-107) mmol/L Carbon Dioxide 23.7 (21.0-32.0) mmol/L BUN 23 H (7-18) mg/dL Creatinine 0.71 (0.51-1.17) mg/dL Est Cr Clr Drug Dosing 66.67 mL/min Estimated GFR (MDRD) > 60 mL/min Glucose 99 (74-106) mg/dL Calcium 5.9 L* (8.5-10.1) mg/dL Med Orders - Current: Current Medications Acetaminophen (Tylenol) 650 mg PO Q4H PRN PRN Reason: Pain (Mild 1-3)/fever [facility]) [facility] [place] [facility] Admin: 02/09/19 09:27 Dose: Not Given Apixaban (Eliquis) [facility] [place] Last Admin: 02/09/19 09:28 Dose: Not Given Calcium Carbonate (Caltrate 600+D 1500 Mg-400 Units) 1 tab PO TID [facility] Last Admin: 02/09/19 11:09 Dose: Not Given Ceftriaxone Sodium (Rocephin) 2 gm IVPUSH Q24H [facility] Last Admin: 02/08/19 18:37 Dose: 2 gm Cyanocobalamin (Vitamin B12) 5,000 mcg [facility] [place] [facility] Admin: 02/09/19 09:29 Dose: Not Given Doxazosin Mesylate (Cardura) [facility] [place] Last Admin: 02/09/19 09:28 Dose: Not Given Furosemide (Lasix) 40 mg PO BIDDIURETIC [facility] Last Admin: 02/09/19 11:09 Dose: Not Given Heparin Sodium (Porcine) (Heparin Lock Flush 100 Units/Ml) 500 units FLUSH ASDIRECTED PRN PRN Reason: Keep Vein Open Heparin Sodium (Porcine) (Heparin Lock Flush 100 Units/Ml) 500 units FLUSH DAILY [facility] Last Admin: 02/09/19 09:28 Dose: Not Given Magnesium Oxide (Magnesium Oxide) 400 mg PO BID [facility] Last Admin: 02/09/19 09:28 Dose: Not Given Midodrine (Midodrine) 2.5 mg PO BID [facility] Last Admin: 02/09/19 09:28 Dose: Not Given Multivitamins/Minerals/Vitamin C (Tab-A-Tran) 1 tab PO QAM [facility] Last Admin: 02/09/19 09:29 Dose: Not Given Non-Formulary Medication (Lactase [Lactaid]) 3,000 unit PO ASDIRECTED PRN PRN Reason: Extra Lactose in Diet Potassium Chloride (Klor-Con M20) 20 meq PO QAM [facility] Last Admin: 02/09/19 09:28 Dose: Not Given Prochlorperazine Maleate (Compazine) 10 mg PO QID PRN PRN Reason: Nausea Senna/Docusate Sodium (Senna Plus) 2 tab PO BID [facility] Stop: 02/10/19 23:59 Last Admin: 02/09/19 09:28 Dose: Not Given Simethicone (Simethicone) 160 mg PO Q4H PRN PRN Reason: Dyspepsia Sodium Chloride (Saline Flush) 10 ml FLUSH ASDIRECTED PRN PRN Reason: Keep Vein Open Last Admin: 02/08/19 18:50 Dose: 10 ml Discontinued Medications Hydromorphone HCl (Dilaudid) 0.5 mg IVPUSH ONETIME ONE Stop: 02/09/19 07:22 Last Admin: 02/09/19 07:55 Dose: 0.5 mg Non-Formulary Medication (Acetaminophen [Pain Reliever]) 500 mg PO Q4HR PRN PRN Reason: Pain - Exam General: Reports: Alert, Oriented HEENT: Reports: Pupils Equal, Pupils Reactive, EOMI, Mucous Membr. Moist/[place] Neck: Reports: Supple Lungs: Reports: Clear to Auscultation, Normal Respiratory Effort Cardiovascular: Reports: Regular Rate, Regular Rhythm GI/Abdominal Exam: Normal Bowel Sounds, Soft, Non-Tender, No Organomegaly, No Distention, No Abnormal Bruit, No Mass, Pelvis Stable (Female) Exam: Deferred Rectal (Female) Exam: Deferred Back Exam: Reports: Normal Inspection, Full Range of Motion Extremities: Normal Inspection, Normal Range of Motion, Non-Tender, No Pedal Edema, Normal Capillary Refill Neurological: Reports: No New Focal Deficit Psy/Mental Status: Reports: Alert, Normal Affect, Normal Mood
== END 2019-02-09 09:15 | DRG 948 ==
LOC: LL.SWG 16:36
PROVIDERS: ADMIT Family Medicine; ATTEND Family Medicine
DX: G89.3 Neoplasm related pain (acute) (chronic) (principal); I42.9 Cardiomyopathy, unspecified; C78.7 Secondary malignant neoplasm of liver and intrahepatic bile duct; C79.51 Secondary malignant neoplasm of bone; R53.1 Weakness; C50.911 Malignant neoplasm of unspecified site of right female breast; J30.9 Allergic rhinitis, unspecified; H54.7 Unspecified visual loss; I11.0 Hypertensive heart disease with heart failure; I50.9 Heart failure, unspecified; J44.9 Chronic obstructive pulmonary disease, unspecified; M19.91 Primary osteoarthritis, unspecified site; M81.0 Age-related osteoporosis without current pathological fracture; E03.9 Hypothyroidism, unspecified; E53.8 Deficiency of other specified B group vitamins; R50.9 Fever, unspecified; Z88.1 Allergy status to other antibiotic agents; Z88.0 Allergy status to penicillin; Z88.2 Allergy status to sulfonamides; Z88.8 Allergy status to other drugs, medicaments and biological substances; Z91.012 Allergy to eggs
CPT/HCPCS: 36415; 80048; 85025; A9270-GY; J0696; J1170; J1642

== ENCOUNTER 2019-02-15 14:45 | Inpatient (IN) | payer MEDICARE, OTHER ==
--- NOTE | 2019-02-15 17:26 | PCM.HP ---
H&P History of Present Illness - General Date of Service: 02/15/19 Admit Problem/Dx: Admission Diagnosis/Problem Admission Diagnosis/Problem Metastatic neoplasm Source of Information: Patient History Limitations: Reports: No Limitations - History of Present Illness Initial Comments - Free Text/Narative: Patient admitted to [facility] after discharge from today. Has been battling metastatic breast cancer for some time. Was on [facility] here for PT and OT due to weakness when she was transferred due to worsening overall condition. Patient treated for anasarca due to hypoalbuminemia, ascites, urinary retention , hyponatremia, cachexia. She feels significantly improved. Here for PT and OT with goal of being able to return home. Bilateral Hand Pain Score (Numeric/FACES): 3 - Related Data Allergies/Adverse Reactions: Allergies Allergy/AdvReac Type Severity Reaction Status Date / Time aspirin Allergy Tachycardia Verified 02/15/19 16:39 ciprofloxacin [From Cipro] Allergy Other Verified 02/15/19 16:39 diphenhydramine Allergy Other Verified 02/15/19 16:39 [From Benadryl] egg Allergy Other Verified 02/15/19 16:39 Influenza Virus Vaccines Allergy Other Verified 02/15/19 16:39 lactose Allergy Abdominal Verified 02/15/19 16:39 Cramps montelukast [From Singulair] Allergy Other Verified 02/15/19 16:39 nitrofurantoin Allergy Rash Verified 02/15/19 16:39 [From Macrodantin] Penicillins Allergy Rash Verified 02/15/19 16:39 pseudoephedrine Allergy Other Verified 02/15/19 16:39 Sulfa (Sulfonamide Allergy Rash Verified 02/15/19 16:39 Antibiotics) tetracycline Allergy Rash Verified 02/15/19 16:39 Home Medications: Home Meds Potassium Chloride 20 meq PO QAM 01/24/18 [History] Lactase [Lactaid] 3,000 unit PO ASDIRECTED PRN 01/19/19 [History] Calcium Carbonate/Vitamin D3 [Calcium 500 + Vit D Caplet] 1 tab PO TID 02/08/19 [History] Cyanocobalamin (Vitamin B-12) [Vitamin B-12] 5,000 mcg PO QAM 02/08/19 [History] Doxazosin Mesylate [Cardura] 2 mg PO QAM 02/08/19 [History] Furosemide [Lasix] 40 mg PO BID 02/08/19 [History] Magnesium Oxide 250 mg PO QAM 02/08/19 [History] Midodrine 2.5 mg PO BID 02/08/19 [History] Multivitamins [Tab-A-Tran] 1 tab PO QAM 02/08/19 [History] Prochlorperazine Maleate [Compazine] 10 mg PO QID PRN 02/08/19 [History] Sennosides/Docusate Sodium [Senna-S] 2 tab PO [id number] 02/08/19 [History] Simethicone 160 mg PO Q4H PRN 02/08/19 [History] Acetaminophen 500 mg PO Q6HR PRN 02/15/19 [History] Apixaban [Eliquis] 2.5 mg PO DAILY 02/15/19 [History] Cholecalciferol (Vitamin D3) [Vitamin D3] 1,000 unit PO DAILY 02/15/19 [History] Past Medical History HEENT History: Reports: Allergic Rhinitis, Impaired Vision, Sinusitis, Other ( See Below) Other HEENT History: Patient wears glasses. Cardiovascular History: Reports: Cardiomyopathy, Heart Failure, Hypertension, Other (See Below) Other Cardiovascular History: Recurrent CHF including pleural effusions with cardiomegaly by chest x-rays. Chronic d-dimer elevation initially diagnosed on 08/22/18 with negative CTA of the chest as below. echocardiogram performed on Feb 04 2019 Respiratory History: Reports: Asthma, Bronchitis, Recurrent, COPD, Pneumonia, Recurrent, Other (See Below) Other Respiratory History: Asthma since childhood. COPD. Gastrointestinal History: Reports: Cholelithiasis, Hiatal Hernia, Other (See Below) Other Gastrointestinal History: Nonsymptomatic cholelithiasis. Genitourinary History: Reports: Retention, Urinary, UTI, Recurrent, Other (See Below) Other Genitourinary History: History of acute urinary retention in 2008 however nonproblematic at this time. Benign bilateral renal cysts. 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 Full term without complications during pregnancies or deliveries. Recurrent nonspecific right-sided lymphatic mastitis with bilateral fibrocystic breast disease. Musculoskeletal History: Reports: Arthritis, Back Pain, Chronic, Fracture, Neck Pain, Chronic, Osteoarthritis, Osteoporosis, Other (See Below) Other Musculoskeletal History: History of non-diagnosed silent right ankle fracture at about age 17. Osteoporosis by x-rays. Kyphosis. Neurological History: Reports: Concussion, Head Trauma, Other (See Below) Other Neuro History: Concussion at age 19. Psychiatric History: Reports: None Endocrine/Metabolic History: Reports: Hypothyroidism, Osteopenia, Osteoporosis, Other (See Below) Other Endocrine/Metabolic History: Hypokalemia. Hyponatremia. Mild borderline hypothyroidism and goiter diagnosed on 08/22/18. Hematologic History: Reports: Anemia, B12 Deficiency, Other (See Below) Other Hematologic History: Severe pernicious anemia. History of leukopenia. Immunologic History: Reports: Immunosuppression, Other (See Below) Other Immunologic History: Breast cancer as below. Oncologic (Cancer) History: Reports: Breast, Metastatic, Other (See Below) Other Oncologic History: Right-sided [place] grade 2 estrogen and progesterone positive invasive ductal breast cancer including metastases to the liver and bone initially diagnosed on 08/23/18. Dermatologic History: Reports: None, Eczema - Infectious Disease History Infectious Disease History: Reports: Chicken Pox, Measles, Mumps - Past Surgical History Head Surgeries/Procedures: Reports: None Female Surgical History: Reports: Breast Biopsy, Tubal Ligation, Other (See Below) Other Female Surgeries/Procedures: Bilateral tubal ligation at age 34. Oncologic Surgical History: Reports: None - Past Imaging History Past Imaging History: Reports: CAT Scan, Ultrasound Social & Family History - Family History HEENT: Reports: None Cardiac: Reports: Arrhythmia, CAD, Hypertension, KS, Other (See Below) Other Cardiac Family History: Paternal grandmother with open heart surgery at age 42 for unknown reason with history of coronary artery disease and recurrent MIs with fatal KS at age 70. Father with fatal unknown type of arrhythmia at age 72 with previous history of KS in his early 70s. Hypertension in paternal grandmother. 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 GI: Reports: None : Reports: None OBGYN: Reports: Dysfunctional uterine bleeding, Other (See Below) Other OBGYN Family History: Mother with hysterectomy for probable dysfunctional uterine bleeding Musculoskeletal: Reports: Arthritis, Gout, Other (See Below) Other Musculoskeletal Family History: Maternal uncle with gout Neurological: Reports: CVA, Other (See Below) Other Neurological Family History: Maternal grandmother with recurrent CVAs in her 90s eventually fatal at age 96. Psychiatric: Reports: Anxiety, Depression, Other (See Below) Other Psychiatric Family History: Mother with anxiety depression disorder. Endocrine/Metabolic: Reports: Diabetes, type II, IDDM, Other (See Below) Other Endocrine/Metabolic Family History: Mother, maternal grandmother, and paternal grandmother with IDDM. Hematologic: Reports: None Immunologic: Reports: None Dermatologic: Reports: Psoriasis, Other (See Below) Other Dermatologic Family History: Father with psoriasis. Oncologic: Reports: Skin, Other (See Below) Other Oncologic Family History: Father with recurrent basal cell carcinomas. - Caffeine Use Caffeine Use: Reports: Coffee (One cup per day), Tea (1 Per day). 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 Denies: Fever, Chills, Malaise, Night Sweats, Diaphoresis, Decreased Appetite HEENT: Reports: No Symptoms (no acute changes) Pulmonary: Reports: No Symptoms, Other (has Pleurx drain right lung for chronic right pleural effusion). Denies: Shortness of Breath, Cough Cardiovascular: Reports: No Symptoms. Denies: Chest Pain, Dyspnea on Exertion Gastrointestinal: Denies: Abdominal Pain (has resolved), Black Stool, Bloody Stool, Diarrhea, Nausea, Vomiting Genitourinary: Reports: Retention (recent issues with retention) Musculoskeletal: Reports: No Symptoms (no acute changes from baseline) Skin: Reports: No Symptoms Psychiatric: Reports: No Symptoms Neurological: Reports: No Symptoms Hematologic/Lymphatic: Reports: Anemia (chronic) Immunologic: Reports: No Symptoms (suppressed/on chemo) Exam - Exam Exam: See Below - Vital Signs Vital Signs: Last Vital Signs Temp 36.8 C 02/15/19 15:31 Pulse 88 02/15/19 15:31 Resp 20 02/15/19 15:31 BP 122/65 02/15/19 15:31 Pulse Ox 97 02/15/19 15:31 Weight: 63.684 kg - Exam General: Alert, Oriented, Cooperative HEENT: Conjunctiva Clear, EACs Clear, EOMI, Hearing Intact, Mucosa Moist & Sem[place] , Nares Patent, Pupils Equal, Pupils Reactive Neck: Supple, Trachea Midline Lungs: Clear to Auscultation, Normal Respiratory Effort Cardiovascular: Regular Rate, Regular Rhythm GI/Abdominal Exam: Normal Bowel Sounds, Soft, Non-Tender, No Distention (Female) Exam: Deferred Rectal (Female) Exam: Deferred Back Exam: No: CVA Tenderness (L), CVA Tenderness (R), Muscle Spasm, Paraspinal Tenderness, Vertebral Tenderness Extremities: Normal Range of Motion, Non-Tender, Normal Capillary Refill, Other (right arm puffier than left due to breast cancer surgery/lymph node disection. ) Peripheral Pulses: 2+: Radial (L), Radial (R) Skin: Warm, Dry, Intact Neurological: Strength Equal Bilateral, Normal Speech Neuro Extensive - Mental Status: Alert, Oriented x3, Normal Mood/Affect, Normal Cognition, Memory Intact Psychiatric: Alert, Normal Affect, Normal Mood - Problem List (1) Metastatic breast cancer SNOMED Code(s): 081134516, 769204894 ICD Code: C50.919 - MALIGNANT NEOPLASM OF UNSP SITE OF UNSPECIFIED FEMALE BREAST Status: Chronic Priority: High Current Visit: Yes Problem Details : Mets to liver/bone. Weakness/fatigue, cachexia. Needs PT and OT with goal of being able to return home. (2) Weakness SNOMED Code(s): 16042796 ICD Code: R53.1 - WEAKNESS Status: Chronic Priority: High Current Visit : Yes Problem Details: secondary to metastic cancer. PT and OT to evaluate patient (3) Hypokalemia SNOMED Code(s): 06116395 ICD Code: E87.6 - HYPOKALEMIA Status: Chronic Priority: High Current Visit: No Problem Details: Currently on potassium chloride supplementation with no hyperkalemia today. (4) Cachexia SNOMED Code(s): 640872646 ICD Code: R64 - CACHEXIA Status: Acute Priority: Medium Current Visit: Yes Problem Details: secondary to metastatic cancer (5) Ascites SNOMED Code(s): 967361959 ICD Code: R18.8 - OTHER ASCITES Status: Acute Priority: Medium Current Visit: Yes Problem Details: Recent issues with ascites. Fluid tapped during inpatient stay at [place]. Monitor for changes. (6) Hyponatremia SNOMED Code(s): 96885406 ICD Code: E87.1 - HYPO-OSMOLALITY AND HYPONATREMIA Status: Acute Priority : Medium Current Visit: Yes Problem Details: addressed during recent [place] stay. Monitor for changes. (7) Recurrent pleural effusion on right SNOMED Code(s): 30765685, 38598810 ICD Code: J90 - PLEURAL EFFUSION, NOT ELSEWHERE CLASSIFIED Status: Chronic Priority: Low Current Visit: Yes Problem Details: Has Pleurx catheter in place (8) Hypocalcemia SNOMED Code(s): 5933223 ICD Code: E83.51 - HYPOCALCEMIA Status: Acute Priority: Medium Current Visit: Yes Problem Details: Treated for hypocalcemia at [place]. Monitor levels during stay. (9) History of DVT (deep vein thrombosis) SNOMED Code(s): 822972252 ICD Code: Z86.718 - PERSONAL HISTORY OF OTHER VENOUS THROMBOSIS AND EMBOLISM Status: Resolved Priority: Low Current Visit: No Problem Details: receiving anticoagulation therapy. (10) Hypothyroidism (acquired) SNOMED Code(s): 331761622 ICD Code: E03.9 - HYPOTHYROIDISM, UNSPECIFIED Status: Acute Priority: Low Current Visit: No Onset Date: 08/22/18 Problem Details: Reported to be stable at this time. (11) CHF (congestive heart failure) SNOMED Code(s): 85025306 ICD Code: I50.9 - HEART FAILURE, UNSPECIFIED Status: Chronic Priority: Low Current Visit: No Onset Date: ~08/22/18 Problem Details: Currently stable, monitor for changes. Qualifiers: Heart failure type: unspecified Heart failure chronicity: chronic Qualified Code(s): I50.9 - Heart failure, unspecified (12) COPD (chronic obstructive pulmonary disease) SNOMED Code(s): 74135262 ICD Code: J44.9 - CHRONIC OBSTRUCTIVE PULMONARY DISEASE, UNSPECIFIED Status : Chronic Priority: Low Current Visit: No Problem Details: Currently under therapy with no recent fever, bronchitic type symptoms, etc.. Stable per patient Qualifiers: COPD type: COPD with acute exacerbation Qualified Code(s): J44.1 - Chronic obstructive pulmonary disease with (acute) exacerbation (13) Hypoalbuminemia SNOMED Code(s): 644762402 ICD Code: E88.09 - OTH DISORDERS OF PLASMA-PROTEIN METABOLISM, NEC Status: Chronic Priority: Medium Current Visit: Yes Onset Date: 08/22/18 Problem Details: Received albumin infusions at [place]. Continue to monitor levels. (14) Osteoarthritis SNOMED Code(s): 419665253 ICD Code: M19.90 - UNSPECIFIED OSTEOARTHRITIS, UNSPECIFIED SITE Status: Chronic Priority: Low Current Visit: No Problem Details: Stable by history Qualifiers: Osteoarthritis location: multiple joints Osteoarthritis type: primary Qualified Code(s): M15.0 - Primary generalized (osteo)arthritis (15) Peptic reflux disease SNOMED Code(s): 300674706 ICD Code: K21.9 - GASTRO-ESOPHAGEAL REFLUX DISEASE WITHOUT ESOPHAGITIS Status: Chronic Priority: Low Current Visit: No Problem Details: Stable by history with history of hiatal hernia as above. Note additional history of pernicious anemia. (16) Anemia SNOMED Code(s): 700727143 ICD Code: D64.9 - ANEMIA, UNSPECIFIED Status: Chronic Priority: Medium Current Visit: Yes Problem Details: chronic, secondary to chemo Qualifiers: Anemia type: unspecified type Qualified Code(s): D64.9 - Anemia, unspecified Problem List Initiated/Reviewed/Updated: Yes Orders Last 24hrs: Active Orders 24 hr Category Date Time Status Patient Status [ADT] Routine ADT 02/15/19 16:44 Ordered Height and Weight [RC] UPON Care 02/15/19 16:44 Ordered Intake and Output [RC] QSHIFT Care 02/15/19 16:48 Ordered Oxygen Therapy [RC] PRN Care 02/15/19 16:44 Ordered Pulse Oximetry [RC] PRN Care 02/15/19 16:49 Ordered Up With Assistance [RC] ASDIRECTED Care 02/15/19 16:44 Ordered VTE/DVT Education [RC] PER UNIT ROUTINE Care 02/15/19 16:44 Ordered Vital Signs [RC] QSHIFT Care 02/15/19 16:44 Ordered Consult to Case Management/Train Control Technician [CONS] Cons 02/15/19 16:44 Ordered Routine OT Evaluation and Treatment [CONS] Routine Cons 02/15/19 16:44 Ordered PT Evaluation and Treatment [CONS] Routine Cons 02/15/19 16:44 Ordered Regular Diet [DIET] Diet 02/15/19 Dinner Ordered Resuscitation Status Routine Resus Stat 02/15/19 16:44 Ordered Assessment/Plan Comment:: as above. PT and OT to see patient and work with her with goal of patient being able to return home. Continue to monitor labs for the above concerns.
[2019-02-15] MEDS ORDERED: Potassium Chloride 20 MEQ Tab.ER PO ONE (17:28)
[2019-02-15] MEDS ORDERED: LACTASE ENZYME PO PRN (17:49)
[2019-02-15] MEDS ORDERED: Prochlorperazine 5 MG Tab PO PRN (18:00)
[2019-02-15] MEDS: Apixaban 2.5 MG Tab PO SCH (18:36)
[2019-02-15] MEDS: Furosemide 40 MG Tab PO SCH (18:36)
[2019-02-15] MEDS: Midodrine 5 MG Tab PO SCH (18:37)
[2019-02-15] MEDS: Calcium Carbonate/Vitamin D3 625 MG-125 Unit Tab PO SCH (18:37)
[2019-02-16] MEDS: Calcium Carbonate/Vitamin D3 625 MG-125 Unit Tab PO SCH ×3 (07:32→17:11)
[2019-02-16] MEDS: Cyanocobalamin (Vitamin B12) 1,000 MCG Tab PO SCH (07:32)
[2019-02-16] MEDS: Multivitamin Tab PO SCH (07:33)
[2019-02-16] MEDS: Potassium Chloride 20 MEQ Tab.ER PO SCH (07:33)
[2019-02-16] MEDS: Furosemide 40 MG Tab PO SCH ×2 (07:34→12:37)
[2019-02-16] MEDS: Apixaban 2.5 MG Tab PO SCH (07:35)
[2019-02-16] MEDS: Cholecalciferol (Vitamin D3) 1,000 Unit Tab PO SCH (07:35)
[2019-02-16] MEDS: Magnesium Oxide 400 MG Tab PO SCH (07:36)
[2019-02-16] MEDS: Doxazosin 2 MG Tab PO SCH (07:41)
[2019-02-16] MEDS: Midodrine 5 MG Tab PO SCH ×2 (07:41→17:11)
[2019-02-16 07:54] LABS: CHLORIDE,CL 109 mmol/L (98-107); SODIUM,NA 145 mmol/L (136-145)
[2019-02-17] MEDS: Acetaminophen 500 MG Tab PO PRN ×2 (01:08→08:54)
[2019-02-17] MEDS: Doxazosin 2 MG Tab PO SCH (08:11)
[2019-02-17] MEDS: Magnesium Oxide 400 MG Tab PO SCH (08:11)
[2019-02-17] MEDS: Potassium Chloride 20 MEQ Tab.ER PO SCH ×2 (08:12→22:16)
[2019-02-17] MEDS: Cyanocobalamin (Vitamin B12) 1,000 MCG Tab PO SCH (08:13)
[2019-02-17] MEDS: Cholecalciferol (Vitamin D3) 1,000 Unit Tab PO SCH (08:14)
[2019-02-17] MEDS: Furosemide 40 MG Tab PO SCH ×2 (08:14→12:00)
[2019-02-17] MEDS: Calcium Carbonate/Vitamin D3 625 MG-125 Unit Tab PO SCH ×3 (08:14→17:15)
[2019-02-17] MEDS: Multivitamin Tab PO SCH (08:14)
[2019-02-17] MEDS: Apixaban 2.5 MG Tab PO SCH (08:14)
[2019-02-17] MEDS: Midodrine 5 MG Tab PO SCH ×2 (08:15→17:15)
--- OUTSIDE RECORDS SUMMARY | 2019-02-17 16:27 | XMSREPORT | Summary of Care ---
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 Plugged. [facility]. Rosa was changed in [place] but no drainage occured Auth/Cert Status Reason Specialty Diagnoses / Procedures Referred By Contact Referred To Contact Encounter Details Date Type Department Care Team Description 02/09/2019 - Hospital Encounter [facility], Emergency Department [address] [place] [address] [phone] Ascites 02/15/2019 [place] 7S Darion Plascencia MD [address] [place] [address] [place] [address] Latha Fisher MD [address] [place] [address] [phone] [place] [address] Mack Lares MD [address] [place] [address] [phone] Allergies Active Allergy Reactions Severity Noted Date Comments Aspirin Tachycardia 04/07/2013 Influenza Vaccines Other (Specify in 08/23/2018 Parasethesia Comments) Milk/Dairy Products Stomach Pain 09/16/2018 Pt to self monitor. Nitrofurantoin Rash 04/07/2013 Penicillin Hives (High) High 04/07/2013 Montelukast Sodium Other (Specify in 08/22/2018 Loss of appetite Comments) Sulfa Drugs Other (Specify in 04/07/2013 Stiff joints Comments) Tetracyclines Hives (High) High 04/07/2013 documented as of this encounter (statuses as of 02/15/2019) Medications Medication Sig Dispensed Refills Start Date End Date Status Multiple Vitamin Take 1 tablet 0 Active (MULTI-VITAMIN) by mouth 1 time tablet per day. doxazosin (CARDURA) 2 TAKE 1 TABLET 90 tablet 3 06/26/2016 Active mg tabletIndications: BY MOUTH 1 TIME Essential PER DAY. hypertension Cyanocobalamin Take 5,000 mcg 0 Active (VITAMIN B-12) 5000 by mouth 1 time MCG LOZG per day potassium chloride Take 20 mEq by 0 Active (KLOR-CON M20) 20 MEQ mouth 1 time CR tablet per day lactase (LACTAID) Take 3,000 0 Active 3000 units TABS Units by mouth as needed for other (Specify) apixaban (ELIQUIS) Take 2.5 mg by 0 Active 2.5 MG tablet mouth 1 time per day calcium Take 1 tablet 60 tablet 11 12/12/2018 Active carbonate-vitamin D by mouth 3 (OSCAL 500 + VIT D) times a day 500 mg-200 unit with meals tabletIndications: Metastatic breast cancer (HCC), Bone metastasis (HCC) prochlorperazine Take 1 tablet 50 tablet 3 01/09/2019 Active (COMPAZINE) 10 mg (10 mg) by tabletIndications: mouth 4 times a High risk for day as needed chemotherapy-induced for nausea or infectious vomiting complication, Malignant neoplasm of overlapping sites of right breast in female, estrogen receptor positive (HCC) magnesium oxide 250 Take 250 mg by 0 Active MG TABS mouth 1 time per day simethicone (MYLICON, Take 2 tablets 30 each 1 02/07/2019 Active GAS-X) 80 MG (160 mg) by CHEWIndications: mouth Every 4 Dyspepsia hours as needed for flatulence midodrine Take 1 tablet 60 tablet 4 02/07/2019 02/12/20 Active (PROAMATINE) 2.5 mg (2.5 mg) by 20 tabletIndications: mouth 2 times a Hypotension, day before unspecified meals hypotension type furosemide (LASIX) 40 Take 1 tablet 60 tablet 1 02/15/2019 Active mg tabletIndications: (40 mg) by Malignant neoplasm of mouth 2 times a overlapping sites of day right breast in female, estrogen receptor positive (HCC), Pleural effusion on right senna-docusate sodium Take 2 tablets 28 tablet 0 02/15/2019 02/23/20 Active (SENOKOT-S;PERICOLACE by mouth 2 19 ) 8.6-50 MG times a day for tabletIndications: 7 days Dyspepsia vitamin D3, Take 1 tablet 30 tablet 0 02/16/2019 Active cholecalciferol, 1000 (1,000 Units) unit by mouth 1 time tabletIndications: per day Hypocalcemia acetaminophen Take 1 tablet 30 tablet 0 02/15/2019 Active (TYLENOL) 500 mg (500 mg) by tablet mouth every 6 hours as needed for mild pain anastrozole Take 1 tablet 30 tablet 3 01/30/2019 02/16/20 Discontinued (ARIMIDEX) 1 MG (1 mg) by mouth 19 tabletIndications: 1 time per day Malignant neoplasm of overlapping sites of right breast in female, estrogen receptor positive (HCC) acetaminophen Take 500 mg by 0 02/16/20 Discontinued (TYLENOL) 500 mg mouth every 4 19 tablet to 6 hours as needed for mild pain senna-docusate sodium Take 2 tablets 28 tablet 0 02/07/2019 02/16/20 Discontinued (SENOKOT-S;PERICOLACE by mouth 2 19 ) 8.6-50 MG times a day for tabletIndications: 7 days Dyspepsia furosemide (LASIX) 20 Take 2 tablets 60 tablet 3 02/07/2019 02/16/20 Discontinued mg tabletIndications: (40 mg) by 19 Malignant neoplasm of mouth 2 times a overlapping sites of day right breast in female, estrogen receptor positive (HCC), Pleural effusion on right documented as of this encounter (statuses as of 02/15/2019) Active Problems Problem Noted Date Ascites 02/09/2019 Anasarca 02/03/2019 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 Anemia due to antineoplastic chemotherapy 01/10/2019 Hypoalbuminemia due to protein-calorie malnutrition 01/10/2019 High risk for chemotherapy-induced infectious complication 01/09/2019 Recurrent pleural effusion on right 09/16/2018 Metastatic breast cancer 09/16/2018 Shortness of breath 2018 Pleural effusion on right 2018 Malignant neoplasm of overlapping sites of right breast in female, 2018 estrogen receptor positive Liver metastasis 2018 Bone metastasis 2018 COPD (chronic obstructive pulmonary disease) 08/22/2018 CHF (congestive heart failure) 08/22/2018 Osteoarthritis of right hip 03/18/2015 Hyperlipidemia 03/10/2015 Essential hypertension 12/24/2005 documented as of this encounter (statuses as of 02/15/2019) Social History Tobacco Use Types Packs/Day Years Used Date Never Smoker Smokeless Tobacco: Never Used Alcohol Use Drinks/Week oz/Week Comments No 0 Standard drinks or equivalent 0.0 Sexually Active Control Partners Comments No Sex Assigned at Date Recorded Not on file Job Start Date Occupation Industry Not on file Not on file Not on file Travel History Travel Start Travel End No recent travel history available. documented as of this encounter Last Filed Vital Signs Vital Sign Reading Time Taken Blood Pressure 111/69 02/15/2019 8:14 AM CDT Pulse 86 02/15/2019 8:14 AM CDT Temperature 36.9 C (98.5 F) 02/15/2019 8:14 AM CDT Respiratory Rate 16 02/15/2019 8:14 AM CDT Oxygen Saturation 97% 02/15/2019 8:14 AM CDT Inhaled Oxygen Concentration - - Weight 62.3 kg (137 lb 4.8 oz) 02/15/2019 6:20 AM CDT Height 165.1 cm (5' 5") 02/09/2019 5:55 PM CDT Body Mass Index 22.85 02/15/2019 6:20 AM CDT documented in this encounter Functional Status Functional Status Response Date of Assessment Is the person deaf or does he/she have serious difficulty No 02/09/2019 hearing? Is this person blind or does he/she have difficulty No 02/09/2019 seeing even when wearing glasses? Do you have difficulty with walking, balance, climbing No 02/09/2019 stairs, or had a fall in the last 3 months? Does the patient have difficulty dressing or bathing? No 02/09/2019 Because of a physical, mental, or emotional condition; No 02/09/2019 does this person have difficulty doing errands alone such as visiting a doctor's office or shopping? Cognitive Status Response Date of Assessment Because of a physical, mental, or emotional condition; No 02/09/2019 does this person have serious difficulty concentrating, remembering, or making decisions? documented as of this encounter Discharge Instructions Carmencita Gillespie RN - 02/10/2019Heart Failure Discharge Instructions Activity: ? Be as active as possible ? Break down tasks to small activities to avoid becoming overly tired ? Talk to your doctor before lifting more than 10 pounds ? Begin to exercise slowly and increase only as tolerated; refer to your education book ? Balance activity and rest periods Nutrition: ? Follow a low sodium (salt) diet ? Choose no added salt or low sodium foods; choose fresh foods as much as possible ? Avoid adding salt to food when cooking or at the table ? Read the nutrition facts labels and avoid foods with more than 300 mg of sodium per serving Medication: ? Make a list and schedule of the medications you take ? Keep a current list of your medications with you ? Take your medications as prescribed ? Avoid NSAIDs or Non-Steroidal Anti-Inflammatory Drugs (i.e. Advil, Ibuprofen, Motrin, etc.) Self-Care: ? Weigh yourself and write it down first thing in the morning after you empty your bladder and before you eat or drink ? Check for swelling of your feet, ankles, legs, and stomach ? Do your daily exercise ? If you smoke, stop ? Keep all follow-up appointments and bring your medications and weight log with you Review the Living Well with Heart Failure booklet for more information on caring for yourself or your loved one at home. Call Your Doctor or Health Loading And Unloading Supervisor If You Have: ? Weight gain of more than 2 pounds overnight or 5 pounds in one week (or whatever weight gain you were told to report by your doctor) ? New or increased swelling of your legs or ankles, swelling or pain in your stomach ? Decrease in amount you urinate ? Increased shortness of breath ? Increased cough with yellow or green sputum (mucus) ? Increased breathing trouble at night (waking up short of breath, needing more pillows to breathe) ? Feeling much more tired than usual ? Racing or pounding heart beat ? Dizziness Go To The Nearest Emergency Room or Call 911 If You Have: ? Shortness of breath so severe that you cannot catch your breath even while resting ? [place], foamy sputum (mucus) ? New problem sleeping; you need to sit straight up to sleep or are not able to sleep due to shortness of breath ? Severe chest pain that does not resolve with rest or Nitroglycerin ? New or increased confusion or cannot think clearly ? A continuous rapid or irregular heart beat ? Fainting or feeling to dizzy to stand up documented in this encounter Progress Notes Mack Lares MD - 02/14/2019 12:30 PM CDTInpatient Progress Note PROVIDER: Mack Lares M.D., Hospitalist LOCATION OF CARE: 7S DATE OF SERVICE: 02/14/2019 PATIENT NAME: SABRINA RETANA I MR#: [id number] CSN: [id number] : 1945 SEX: F HOME: WORK: This is a 73-year-old female with metastatic breast cancer with disease to lung , malignant right-sided pleural effusion with a PleurX catheter in place, liver metastases, bone metastases, who was transferred from outside facility for abdominal distention, generalized volume overload, and anasarca. In addition, the patient was noted to have hypocalcemia. INTERVAL HISTORY: Corrected calcium low. Ascitic fluid gram stain negative and culture no growth so far.Patient received ceftriaxone day prior to tap. Diuresing well on the lasix albumin combination-2.3 litre over 24 hours.Bedside ultrasound IVC revealed Dilated IVC but with normal Respironic variation. CT abdomen/Pelvis-Liver mets,skeletal,Ascitis/Pleural effusions+. REVIEW OF SYSTEMS: CONSTITUTIONAL: No fevers or chills. RESPIRATORY: No new cough or dyspnea. CARDIOVASCULAR SYSTEM: No chest pain or palpitations. ABDOMEN: Abdominal discomfort present but better. CENTRAL NERVOUS SYSTEM: No headache or dizziness. MUSCULOSKELETAL: No joint or bone aches. PHYSICAL EXAMINATION: VITALS: Reviewed. CONSTITUTIONAL: No distress. RESPIRATORY: Bilateral air entry present. Posterior crackles noted. Right PleurX catheter in place. ABDOMEN: Soft, less ascitis, diffuse tenderness better when compared to yesterday.distension better when compared to prior. Bowel sounds present. CENTRAL NERVOUS SYSTEM: Alert, oriented x 3. EXTREMITIES: Generalized lower extremity edema noted. LABORATORY: Reviewed. ASSESSMENT: 1. Anasarca in the setting of hypoalbuminemia with no overt proteinuria on urinalysis; suspect from malignancy and poor oral intake. 2. Possible bacterial peritonitis versus malignancy related. 3. Suspected urinary retention. 4. Hypocalcemia,Hypokalemia and Hypophosphatemia. 4. History of right upper extremity DVT, on very low dose Eliquis due to significant epistaxis with higher doses. PLAN: Continue albumin AND change to oral lasix.I/O. Follow further response.Completed Ceftriaxone 5 days.Cytology results noted-One atypical cell reported-No malignancy reported. Fluid analysis not completely indicative of bacterial peritonitis. DC Rosa-follow voiding trials. No indication for peritonealpleurex.Continue calcium supplementation and Vit D.IV one time calcium gluconate.Oral potassium 40 meq, Oral K phos. Continue low-dose Eliquis. Continue anastrozole. Continue doxazosin.Transition to swing bed when medically ready. Mack Lares M.D., Hospitalist [place] MD - 02/13/2019 3:39 PM CDT 02/13/2019 Hematology/Oncology Daily Progress Note Sabrina Retana is a 73yr old female admitted on 02/09/2019 11:09 AM. Impression / Plan 1. Metastatic breast cancer. Patient receiving Herceptin Perjeta and Arimidex. Next treatment is scheduled for February 20. 2. Hypoalbuminemia and protein calorie malnutrition. Patient receiving albumin. Significantly improved blood albumin level with improvement in anasarca. Continue albumin infusions. Increase protein calorie intake 3. Anasarca due to hypoalbuminemia. After receiving albumin infusion anasarca has significantly improved. Patient also has ascites. She wanted to have a peritoneal Pleurx catheter. I discouraged her for that as she does not seem to have malignant effusion but it is from hypoalbuminemia and shouldcontinue to improve if albumin levels are normal. 4. Probable bacterial peritonitis. Patient continues on ceftriaxone as per hospitalist. 5. Anemia due to cancer. Does not require any intervention or transfusion at this time 6. Hypocalcemia. Continue patient on oral calcium supplementation. We will hold off on Xgeva for now. Total floor time spent in care of this patient today was over 35 minutes of which greater than 50 percent of the time spent in counseling and coordination of care including reviewing chart, discussing with nursing/case management specialist/other providers, phone calls, reviewing labs. . Interval History Patient with metastatic breast cancer admitted for anasarca due to severe hypoalbuminemia. Also shehad hypocalcemia and anemia. Possible bacterial peritonitis. She is on antibiotic Rocephin. Ascites fluid did not show any infection. But symptoms have improved especially of abdominal tenderness.Severe hypoalbuminemia causing anasarca. Being treated with albumin infusion and also receiving Lasix. Improved swelling in extremities and acetic fluid. No new complaints. No fever. No worsening cough, No worsening shortness of breath. Pain is well controlled. No abdominal pain, No nausea, No vomiting, No diarrhea. Eating well. Slept well. No bleeding. No other significant complaints. Other review of systems unremarkable Medications Current Facility-Administered Medications Medication Dose Route Frequency Provider Last Rate Last Dose simethicone (MYLICON, GAS-X) chewable tablet 160 mg 160 mg Oral Every 4 hours prn Bridget Winston APRN-[facility] 160 mg at 02/13/19 0611 potassium phosphates-sodium phosphates (S-UQLD-AOQLGTT) tablet 1 tablet 1 tablet Oral 3 times aday Mack Lares MD 1 tablet at 02/13/19 1518 calcium carbonate (TUMS) chewable tablet 1,000 mg 1,000 mg Oral 2 times a day Mack Lares MD 1,000 mg at 02/13/19 0611 vitamin D3 (cholecalciferol) tablet 1,000 Units 1,000 Units Oral Daily Mack Lares MD 1,000 Units at 02/13/19 0819 furosemide (LASIX) injection solution 40 mg 40 mg IV 3 times a day Mack Lares MD 40 mg at 02/13/19 0942 albumin (human) 25 % IV solution 25 g 25 g IV 3 times a day Mack Lares MD 25 g at 02/13/19 1518 cefTRIAXone (ROCEPHIN) 2000 mg/20 mL IV syringe in sterile water 2,000 mg IV Every 24 hours Mack Lares MD 2,000 mg at 02/12/19 1943 anastrozole (ARIMIDEX) tablet 1 mg 1 mg Oral daily Latha Fisher MD 1 mg at 02/10/19 0808 apixaban (ELIQUIS) tablet 2.5 mg 2.5 mg Oral daily Latha Fisher MD 2.5 mg at 02/13/19 0819 doxazosin (CARDURA) tablet 2 mg 2 mg Oral daily Latha Fisher MD 2 mg at 02/13/19 0819 magnesium oxide tablet 250 mg 250 mg Oral daily Latha Fisher MD 250 mg at 02/13/19 0819 midodrine (PROAMATINE) tablet 2.5 mg 2.5 mg Oral 2 times a day before meals Latha Fisher MD 2.5 mg at 02/13/19 0611 potassium chloride (KLOR-CON M20) CR tablet 20 mEq 20 mEq Oral daily Latha Fisher MD 20 mEq at 02/13/19 0819 acetaminophen (TYLENOL) tablet 650 mg 650 mg Oral Every 4 hours prn Latha Fisher MD 650 mg at 02/13/19 0819 melatonin tablet 3 mg 3 mg Oral Bedtime prn Latha Fisher MD senna-docusate sodium (SENOKOT-S;PERICOLACE) tablet 2 tablet 2 tablet Oral 2 times a day prn Latha Fisher MD 2 tablet at 02/11/19 1601 And bisacodyl (DULCOLAX) suppository 10 mg 10 mg Rectal 1 time a day prn Latha Fisher MD And docusate sodium (THEREVAC-SB MINI;ENEMEEZ MINI) 283 MG enema 1 enema 1 enema Rectal 1 time a day prn Latha Fisher MD ondansetron (ZOFRAN ODT) dispersible tablet 4 mg 4 mg Oral Every 4 hours prn Latha Fisher MD And ondansetron (ZOFRAN) injection solution 4 mg 4 mg IV Every 4 hours prn Latha Fisher MD calcium carbonate (TUMS) chewable tablet 500 mg 500 mg Oral 4 times a day prn Latha Fisher MD 500 mg at 02/09/192134 cyanocobalamin (VITAMIN B-12 DOTS) sublingual tablet 5,000 mcg 5,000 mcg Sublingual Daily [place] MD 5,000 mcg at 02/13/19 0819 Facility-Administered Medications Ordered in Other Encounters Medication Dose Route Frequency Provider Last Rate Last Dose sodium chloride 0.9% prefilled 10 mL syringe (Materials Management Item) 10- 20 mL 10-20 mL IV As often as necessary prn Nathalie Bang APRN-CNP sodium chloride flush 0.9% 10-20 mL 10-20 mL IV As often as necessary prn Nathalie Bang APRN-CNP Review of Systems ENT: No mouth sores. Respiratory: no worsening cough, No worsening shortness of breath Cardiovascular: no chest pain or palpitation Gastrointestinal: no abdominal pain, no diarrhea, no constipation, No N/V Genito-Urinary: no dysuria, hematuria Neurological: NO new headache, No focal weakness. Dermatological: No rash, No petechiae. Physical Exam Vital Signs: Temp: 98.6 F (37 C) | BP: 127/81 | Pulse: 95 | Resp: 14 | Pain Ratin (out of 10) | Weight: 63.6 kg (140 lb 4.8 oz) | O2 Device: Room Air | SpO2: 98 % Maximum Temperatures (last 24 hours) Temperature Maximum Max Temp 98.9 F (37.2 C) Vital Signs Min/Max (last 24 hours) Flowsheet Row Name Min Max Temp 98.2 F (36.8 C) 98.9 F (37.2 C) BP: Systolic 113 133 BP: Diastolic 69 84 Pulse 91 95 Resp 14 16 SpO2 96 % 98 % Intake and Output: 02/12 0700 - 02/13 0659 In: 940 [Oral:940] Out: 4650 [Urine:4650] General Appearance: alert,and in no distress Eyes: sclera anicteric HENT: no oral sores or thrush noted. Neck: supple, Lungs: no rales or rhonchi, equal air entry on both sides Heart: normal rate, normal S1, S2 Abdomen: soft, nontender, +distended, free fluid Neurological: alert, oriented, no focal deficit Mental Status: normal mood, behavior Extremities: +pedal edema, Skin: no rashes, Labs Recent Labs 02/11/19 0542 WBC 4.7 HEMOGLOBIN 9.0* HEMATOCRIT 28.6* PLTCOUNT 216 NEUTROABS 3.4 Recent Labs 02/11/19 0542 02/12/19 0545 02/13/19 0601 GLUCOSE 123* 98 111* BUN 21 14 10 CREATSERUM 0.61 0.52* 0.53* NA 135 137 140 POTASSIUM 3.4* 3.5 3.7 CL 109 108 108 CO2 24 27 28 CA 7.0* 6.8* 7.1* ALBUMIN 2.6* 3.0* 3.6 MAGNESIUM 2.6* 2.1 -- [place] MD [facility] Mack Castanon MD - 02/13/2019 12:09 PM CDTInpatient Progress Note PROVIDER: Mack Lares M.D., Hospitalist LOCATION OF CARE: 7S DATE OF SERVICE: 02/13/2019 PATIENT NAME: SABRINA RETANA I MR#: [id number] CSN: [id number] : 1945 SEX: F HOME: WORK: This is a 73-year-old female with metastatic breast cancer with disease to lung , malignant right-sided pleural effusion with a PleurX catheter in place, liver metastases, bone metastases, who was transferred from outside facility for abdominal distention, generalized volume overload, and anasarca. In addition, the patient was noted to have hypocalcemia. INTERVAL HISTORY: Corrected calcium low. Ascitic fluid gram stain negative and culture no growth so far.Patient received ceftriaxone day prior to tap. Diuresing well on the lasix albumin combination-4.6litre over [address] abdomen/Pelvis-Liver mets,skeletal,Ascitis/Pleural effusions+. REVIEW OF SYSTEMS: CONSTITUTIONAL: No fevers or chills. RESPIRATORY: No new cough or dyspnea. CARDIOVASCULAR SYSTEM: No chest pain or palpitations. ABDOMEN: Abdominal discomfort present. CENTRAL NERVOUS SYSTEM: No headache or dizziness. MUSCULOSKELETAL: No joint or bone aches. PHYSICAL EXAMINATION: VITALS: Reviewed. CONSTITUTIONAL: No distress. RESPIRATORY: Bilateral air entry present. Posterior crackles noted. Right PleurX catheter in place. ABDOMEN: Soft, ascites present, diffuse tenderness noted.distension better when compared to prior. Bowel sounds present. CENTRAL NERVOUS SYSTEM: Alert, oriented x3. EXTREMITIES: Generalized lower extremity edema noted. LABORATORY: Reviewed. ASSESSMENT: 1. Anasarca in the setting of hypoalbuminemia with no overt proteinuria on urinalysis; suspect from malignancy and poor oral intake. 2. Possible bacterial peritonitis versus malignancy related. 3. Suspected urinary retention. 4. Hypocalcemia and Hypophosphatemia. 4. History of right upper extremity DVT, on very low dose Eliquis due to significant epistaxis with higher doses. PLAN: Continue albumin AND IV Lasix three times a day.I/O. Follow further response.Continue Ceftriaxone to complete 5 days. Cytology results noted-One atypical cell reported. Fluid analysis not completely indicative of bacterial peritonitis. Continue rosa for now.No indication for peritoneal pleurex.Discussed with primary oncologist.Continue calcium supplementation and Vit D.IV one time calcium gluconate. Oral K phos. Continue low-dose Eliquis. Continue anastrozole. Continue doxazosin.Transition to swing bed when medically ready. Time spent >35 minutes.>50% time spent in counseling and co ordination of care. Mack Lares M.D., Hospitalist Mack Castanon MD - 02/12/2019 2:00 PM CDTInpatient Progress Note PROVIDER: Mack Lares M.D., Hospitalist LOCATION OF CARE: 7S DATE OF SERVICE: 02/12/2019 PATIENT NAME: SABRINA RETANA I MR#: [id number] CSN: [id number] : 1945 SEX: F HOME: WORK: This is a 73-year-old female with metastatic breast cancer with disease to lung , malignant right-sided pleural effusion with a PleurX catheter in place, liver metastases, bone metastases, who was transferred from outside facility for abdominal distention, generalized volume overload, and anasarca. In addition, the patient was noted to have hypocalcemia. INTERVAL HISTORY: Corrected calcium slightly low. Ascitic fluid gram stain negative and culture no growth so far.Patient received ceftriaxone day prior to tap. Diuresing well on the lasix albumin combination-4.1litre over 24 hours. REVIEW OF SYSTEMS: CONSTITUTIONAL: No fevers or chills. RESPIRATORY: No new cough or dyspnea. CARDIOVASCULAR SYSTEM: No chest pain or palpitations. ABDOMEN: Abdominal discomfort present. CENTRAL NERVOUS SYSTEM: No headache or dizziness. MUSCULOSKELETAL: No joint or bone aches. PHYSICAL EXAMINATION: VITALS: Reviewed. CONSTITUTIONAL: No distress. RESPIRATORY: Bilateral air entry present. Posterior crackles noted. Right PleurX catheter in place. ABDOMEN: Soft, ascites present, diffuse tenderness noted. Bowel sounds present. CENTRAL NERVOUS SYSTEM: Alert, oriented x3. EXTREMITIES: Generalized lower extremity edema noted. LABORATORY: Reviewed. ASSESSMENT: 1. Anasarca in the setting of hypoalbuminemia with no overt proteinuria on urinalysis; suspect from malignancy and poor oral intake. 2. Possible bacterial peritonitis versus malignancy related. 3. Suspected urinary retention. 4. Hypocalcemia and Hypophosphatemia. 4. History of right upper extremity DVT, on very low dose Eliquis due to significant epistaxis with higher doses. PLAN: Continue albumin AND IV Lasix three times a day.I/O. Follow further response.Continue Ceftriaxone. Follow culture results.Follow cytology results. Fluid analysis not completely indicative of bacterialperitonitis.ct abdomen pelvis given persisting tenderness. Continue rosa for now.Add tums. IV Potassium phosphate supplementation. Continue low-dose Eliquis. Continue anastrozole. Continue doxazosin.Transition to swing bed when medically ready.Updated primary oncologist. Mack Lares M.D., Hospitalist [place] MD - 02/12/2019 10:00 AM CDT 02/12/2019 Hematology/Oncology Daily Progress Note Sabrina Retana is a 73yr old female admitted on 02/09/2019 11:09 AM. Impression / Plan 1. Anasarca due to hypoalbuminemia. Patient received albumin. Albumin level improved after albumin infusion. 2. Ascites. Improved ascites Patient on antibiotic 3. Metastatic breast cancer. Next chemotherapy on February 20. Continue Arimidex 4. Anemia. No transfusion required at this time but we'll monitor 5. Severe hyponatremia protein calorie malnutrition and cachexia. 6. Urinary retention. Foleys in place 7. Hypocalcemia: oral replacement Discussed with hospitalist. Discussed with case management specialist. Interval History Patient with metastatic breast cancer admitted for anasarca ascites pleural effusion urinary retention possible bacterial peritonitis. Currently on antibiotics. Also receiving albumin for severe hypoalbuminemia. Patient feels better. Swelling in lower extremity improved. Abdomen less tense. No worsening shortness of breath. No pain. Medications Current Facility-Administered Medications Medication Dose Route Frequency Provider Last Rate Last Dose calcium carbonate (TUMS) chewable tablet 1,000 mg 1,000 mg Oral 2 times a day Mack Lares MD [START ON 02/13/2019] vitamin D3 (cholecalciferol) tablet 1,000 Units 1,000 Units Oral Daily Mack Lares MD furosemide (LASIX) injection solution 40 mg 40 mg IV 3 times a day Mack Lares MD 40 mg at 02/12/19 1630 albumin (human) 25 % IV solution 25 g 25 g IV 3 times a day Mack Lares MD 25 g at 02/12/19 1600 cefTRIAXone (ROCEPHIN) 2000 mg/20 mL IV syringe in sterile water 2,000 mg IV Every 24 hours Mack Lares MD 2,000 mg at 02/12/19 1943 anastrozole (ARIMIDEX) tablet 1 mg 1 mg Oral daily Latha Fisher MD 1 mg at 02/10/19 0808 apixaban (ELIQUIS) tablet 2.5 mg 2.5 mg Oral daily Latha Fisher MD 2.5 mg at 02/12/19 0811 doxazosin (CARDURA) tablet 2 mg 2 mg Oral daily Latha Fisher MD 2 mg at 02/12/19 0811 magnesium oxide tablet 250 mg 250 mg Oral daily Latha Fisher MD 250 mg at 02/12/19 0811 midodrine (PROAMATINE) tablet 2.5 mg 2.5 mg Oral 2 times a day before meals Latha Fisher MD 2.5 mg at 02/12/19 1645 potassium chloride (KLOR-CON M20) CR tablet 20 mEq 20 mEq Oral daily Latha Fisher MD 20 mEq at 02/12/19 0811 acetaminophen (TYLENOL) tablet 650 mg 650 mg Oral Every 4 hours prn Latha Fisher MD 650 mg at 02/12/19 0707 melatonin tablet 3 mg 3 mg Oral Bedtime prn Latha Fisher MD senna-docusate sodium (SENOKOT-S;PERICOLACE) tablet 2 tablet 2 tablet Oral 2 times a day prn Latha Fisher MD 2 tablet at 02/11/19 1601 And bisacodyl (DULCOLAX) suppository 10 mg 10 mg Rectal 1 time a day prn Latha Fisher MD And docusate sodium (THEREVAC-SB MINI;ENEMEEZ MINI) 283 MG enema 1 enema 1 enema Rectal 1 time a day prn Latha Fisher MD ondansetron (ZOFRAN ODT) dispersible tablet 4 mg 4 mg Oral Every 4 hours prn Latha Fisher MD And ondansetron (ZOFRAN) injection solution 4 mg 4 mg IV Every 4 hours prn Latha Fisher MD calcium carbonate (TUMS) chewable tablet 500 mg 500 mg Oral 4 times a day prn Latha Fisher MD 500 mg at 02/09/19 2135 cyanocobalamin (VITAMIN B-12 DOTS) sublingual tablet 5,000 mcg 5,000 mcg Sublingual Daily [place] MD 5,000 mcg at 02/12/19 0811 Facility-Administered Medications Ordered in Other Encounters Medication Dose Route Frequency Provider Last Rate Last Dose sodium chloride 0.9% prefilled 10 mL syringe (Materials Management Item) 10- 20 mL 10-20 mL IV As often as necessary prn Nathalie Bang APRN-[employer] sodium chloride flush 0.9% 10-20 mL 10-20 mL IV As often as necessary prn Nathalie Bang, ACCOUNT LIAISON-DEMAND GENERATION MANAGER Physical Exam Vital Signs: Temp: 97.8 F (36.6 C) | BP: 120/80 | Pulse: 98 | Resp: 16 | Pain Ratin (out of 10) | Weight: 66.5 kg (146 lb 11.2 oz) | O2 Device: Room Air | SpO2: 98 % Maximum Temperatures (last 24 hours) Temperature Maximum Max Temp 98.9 F (37.2 C) Vital Signs Min/Max (last 24 hours) Flowsheet Row Name Min Max Temp 97.8 F (36.6 C) 98.9 F (37.2 C) BP: Systolic 104 120 BP: Diastolic 63 80 Pulse 87 98 Resp 16 16 SpO2 98 % 99 % MAP (mm Hg) 77 mm Hg 91 mm Hg Intake and Output: 02/11 0700 - 02/12 0659 In: 950 [Oral:350] Out: 4100 [Urine:4100] General Appearance: alert,and in no distress Eyes: sclera anicteric HENT: no oral sores or thrush noted. Neck: supple, Lungs: no rales or rhonchi, equal air entry on both sides Heart: normal rate, normal S1, S2 Abdomen: soft, nontender, ++distended, Neurological: alert, oriented, no focal deficit Mental Status: normal mood, behavior Extremities: ++pedal edema, Skin: no rashes, Labs Recent Labs 02/09/19215002/10/19 0540 02/11/19 0542 WBC 12.0* 8.2 4.7 HEMOGLOBIN 10.3* 9.0* 9.0* HEMATOCRIT 32.6* 28.6* 28.6* PLTCOUNT 230 213 216 NEUTROABS 10.5* 7.7 3.4 Recent Labs 02/09/19215002/10/19 0540 02/11/19 0542 02/12/19 0545 GLUCOSE 143* 111* 123* 98 BUN 26* 25* 21 14 CREATSERUM 0.64 0.59* 0.61 0.52* NA 132* 133* 135 137 POTASSIUM 3.7 3.6 3.4* 3.5 CL 106 108 109 108 CO2 22 24 24 27 CA 6.5* 6.8* 7.0* 6.8* PROTEINTOTAL 4.3* 4.2* -- -- ALBUMIN 2.1* 2.3* 2.6* 3.0* ALKPHOS 186* 157* -- -- AST 20 22 -- -- ALT 15 14 -- -- BILITOTAL 0.6 0.6 -- -- MAGNESIUM -- -- 2.6* 2.1 [place] MD [facility] Mack Castanon MD - 02/11/2019 3:25 PM CDTInpatient Progress Note PROVIDER: Mack Lares M.D., Hospitalist LOCATION OF CARE: 7S DATE OF SERVICE: 02/11/2019 PATIENT NAME: SABRINA ERTANA I MR#: [id number] CSN: [id number] : 1945 SEX: F HOME: WORK: This is a 73-year-old female with metastatic breast cancer with disease to lung , malignant right-sided pleural effusion with a PleurX catheter in place, liver metastases, bone metastases, who was transferred from outside facility for abdominal distention, generalized volume overload, and anasarca. In addition, the patient was noted to have hypocalcemia. INTERVAL HISTORY: Corrected calcium slightly low. Ascitic fluid gram stain negative and culture no growth so far.Patient received ceftriaxone day prior to tap. Diuresing well on the lasix albumin combination. REVIEW OF SYSTEMS: CONSTITUTIONAL: No fevers or chills. RESPIRATORY: No new cough or dyspnea. CARDIOVASCULAR SYSTEM: No chest pain or palpitations. ABDOMEN: Abdominal discomfort present. CENTRAL NERVOUS SYSTEM: No headache or dizziness. MUSCULOSKELETAL: No joint or bone aches. PHYSICAL EXAMINATION: VITALS: Reviewed. CONSTITUTIONAL: No distress. RESPIRATORY: Bilateral air entry present. Posterior crackles noted. Right PleurX catheter in place. ABDOMEN: Soft, ascites present, mild diffuse tenderness noted. Bowel sounds present. CENTRAL NERVOUS SYSTEM: Alert, oriented x3. EXTREMITIES: Generalized lower extremity edema noted. LABORATORY: Reviewed. ASSESSMENT: 1. Anasarca in the setting of hypoalbuminemia with no overt proteinuria on urinalysis; suspect from malignancy and poor oral intake. 2. Possible bacterial peritonitis versus malignancy related. 3. Suspected urinary retention. 4. Hypokalemia,hypocalcemia and Hypophosphatemia. 4. History of right upper extremity DVT, on very low dose Eliquis due to significant epistaxis with higher doses. PLAN: Continue albumin. Change IV Lasix to three times a day.I/O. Follow further response.Continue Ceftriaxone. Follow culture results.Follow cytology results. Fluid analysis not completely indicativeof bacterial peritonitis. Continue rosa for now.Add tums. Continue potassium supplementation. IV Potassium phosphate supplementation. Continue low-dose Eliquis. Continue anastrozole. Continue doxazosin.Follow further response. PT/OT consultation. TIME SPENT: Greater than 35 minutes. Greater than 50% of the time was spent in counseling and coordination of care. Discussed with the primary oncology team as well and updated them on the care plan. Mack Lares M.D., Hospitalist Job ID/Trans ID: [id number] Doc ID: [id number] ENVIRONMENTAL COMMUNICATIONS SPECIALIST ENVIRONMENTAL COMMUNICATIONS SPECIALIST [place] MD - 02/11/2019 2:57 PM CDT 02/11/2019 Hematology/Oncology Daily Progress Note Sabrina Retana is a 73yr old female admitted on 02/09/2019 11:09 AM. Impression / Plan 1. Anasarca due to hypoalbuminemia. Patient received albumin. Albumin level improved after albumin infusion. 2. Ascites. Awaiting for ascites fluid analysis and culture. Patient on antibiotic 3. Metastatic breast cancer. Next chemotherapy on February 20. Continue Arimidex 4. Anemia. No transfusion required at this time but we'll monitor 5. Severe hyponatremia protein calorie malnutrition and cachexia. Discussed with the hospitalist service for management and discharge planning. We will continue withantibiotics for possible peritoneal infection. We will continue with albumin and diuresis. Other supportive and symptomatically. She will have full his catheter. She will be discharged home possibly to a long term or swing bed. Total time over 35 min spent with the patient. More than 50% of time spent in counseling, coordinating care, discussion of current status, and plan of therapy. Interval History Patient with metastatic breast cancer. Recently received Herceptin and Perjata. Also on Arimidex.Admitted for anasarca and hypoalbuminemia and urinary retention requiring Rosa catheter. She also has ascites and being worked up for SBP. No new complaints. No fever. No worsening cough, No worsening shortness of breath. Pain is well controlled. No abdominal pain, No nausea, No vomiting, No diarrhea. Eating well. Slept well. No bleeding. No other significant complaints. Other review of systems unremarkable Medications Current Facility-Administered Medications Medication Dose Route Frequency Provider Last Rate Last Dose potassium phosphate 30 mmol in dextrose 5% 500 mL 30 mmol IV 1 time Mack Lares MD 30 mmol at 02/11/19 1033 furosemide (LASIX) injection solution 40 mg 40 mg IV 3 times a day Mack Lares MD albumin (human) 25 % IV solution 25 g 25 g IV 3 times a day Mack Lares MD 25 g at 02/11/19 1443 cefTRIAXone (ROCEPHIN) 2000 mg/20 mL IV syringe in sterile water 2,000 mg IV Every 24 hours Mack Lares MD 2,000 mg at 02/10/19 1928 anastrozole (ARIMIDEX) tablet 1 mg 1 mg Oral daily Latha Fisher MD 1 mg at 02/10/19 0808 apixaban (ELIQUIS) tablet 2.5 mg 2.5 mg Oral daily Latha Fisher MD 2.5 mg at 02/11/19 0810 calcium carbonate-vitamin D (OSCAL 500 + VIT D) 500 mg-200 unit tablet 1 tablet 1 tablet Oral 3times a day with meals Latha Fisher MD 1 tablet at 02/11/19 1235 doxazosin (CARDURA) tablet 2 mg 2 mg Oral daily Latha Fisher MD 2 mg at 02/11/19 0810 magnesium oxide tablet 250 mg 250 mg Oral daily Latha Fisher MD 250 mg at 02/11/19 0810 midodrine (PROAMATINE) tablet 2.5 mg 2.5 mg Oral 2 times a day before meals Latha Fisher MD 2.5 mg at 02/11/19 0541 potassium chloride (KLOR-CON M20) CR tablet 20 mEq 20 mEq Oral daily Latha Fisher MD 20 mEq at 02/11/19 0808 acetaminophen (TYLENOL) tablet 650 mg 650 mg Oral Every 4 hours prn Latha Fisher MD 650 mg at 02/11/19 0807 melatonin tablet 3 mg 3 mg Oral Bedtime prn Latha Fisher MD senna-docusate sodium (SENOKOT-S;PERICOLACE) tablet 2 tablet 2 tablet Oral 2 times a day prn Latha Fisher MD And bisacodyl (DULCOLAX) suppository 10 mg 10 mg Rectal 1 time a day prn Latha Fisher MD And docusate sodium (THEREVAC-SB MINI;ENEMEEZ MINI) 283 MG enema 1 enema 1 enema Rectal 1 time a day prn Latha Fisher MD ondansetron (ZOFRAN ODT) dispersible tablet 4 mg 4 mg Oral Every 4 hours prn Latha Fisher MD And ondansetron (ZOFRAN) injection solution 4 mg 4 mg IV Every 4 hours prn Latha Fisher MD calcium carbonate (TUMS) chewable tablet 500 mg 500 mg Oral 4 times a day prn Latha Fisher MD 500 mg at 02/09/19 2135 cyanocobalamin (VITAMIN B-12 DOTS) sublingual tablet 5,000 mcg 5,000 mcg Sublingual Daily [place] MD 5,000 mcg at 02/11/19 0808 Facility-Administered Medications Ordered in Other Encounters Medication Dose Route Frequency Provider Last Rate Last Dose sodium chloride 0.9% prefilled 10 mL syringe (Materials Management Item) 10- 20 mL 10-20 mL IV As often as necessary prn Nathalie Bang APRN-CNP sodium chloride flush 0.9% 10-20 mL 10-20 mL IV As often as necessary prNathalie Ponce APRN-CNP Review of Systems ENT: No mouth sores. Respiratory: no worsening cough, No worsening shortness of breath Cardiovascular: no chest pain or palpitation Gastrointestinal: no abdominal pain, no diarrhea, no constipation, No N/V Genito-Urinary: no dysuria, hematuria Extremities- no swelling or new bone pain Neurological: NO new headache, No focal weakness. Dermatological: No rash, No petechiae. Physical Exam Vital Signs: Temp: 97.9 F (36.6 C) | BP: 110/61 | Pulse: 89 | Resp: 16 | Pain Ratin (out of 10) | Weight: 69.3 kg (152 lb 12.8 oz) | O2 Device: Room Air | SpO2: 97 % Maximum Temperatures (last 24 hours) Temperature Maximum Max Temp 99.4 F (37.4 C) Vital Signs Min/Max (last 24 hours) Flowsheet Row Name Min Max Temp 97.4 F (36.3 C) 99.4 F (37.4 C) BP: Systolic 95 110 BP: Diastolic 60 66 Pulse 87 89 Resp 16 16 SpO2 97 % 98 % MAP (mm Hg) 70 mm Hg 70 mm Hg Intake and Output: 02/10 0700 - 02/11 0659 In: 660 [Oral:660] Out: 1700 [Urine:1650] General Appearance: alert,and in no distress Eyes: sclera anicteric HENT: no oral sores or thrush noted. Neck: supple, Lungs: no rales or rhonchi, equal air entry on both sides Heart: normal rate, normal S1, S2 Abdomen: soft, nontender, distended due to free fluid Neurological: alert, oriented, no focal deficit Mental Status: normal mood, behavior Extremities: ++pedal edema, edema of the right upper extremity Skin: no rashes, Labs Recent Labs 02/09/19215002/10/19 0540 02/11/19 0542 WBC 12.0* 8.2 4.7 HEMOGLOBIN 10.3* 9.0* 9.0* HEMATOCRIT 32.6* 28.6* 28.6* PLTCOUNT 230 213 216 NEUTROABS 10.5* 7.7 3.4 Recent Labs 02/09/19 1205 02/09/191 02/10/19 0540 02/11/19 0542 GLUCOSE 105* | 103* 143* 111* 123* BUN 25* | 24* 26* 25* 21 CREATSERUM 0.60 | 0.58* 0.64 0.59* 0.61 NA 131* | 130* 132* 133* 135 POTASSIUM 3.7 | 3.6 3.7 3.6 3.4* CL 104 | 102 106 108 109 CO2 19* | 20 22 24 24 CA 6.1* | 6.0* 6.5* 6.8* 7.0* PROTEINTOTAL 4.4* 4.3* 4.2* -- ALBUMIN 2.1* 2.1* 2.3* 2.6* ALKPHOS 185* 186* 157* -- AST 21 20 22 -- ALT 16 15 14 -- BILITOTAL 0.9 0.6 0.6 -- MAGNESIUM -- -- -- 2.6* [place] MD [facility] Mack Castanon MD - 02/10/2019 12:00 AM CDTInpatient Progress Note PROVIDER: Mack Lares M.D., Hospitalist LOCATION OF CARE: 7S DATE OF SERVICE: 02/10/2019 PATIENT NAME: SABRINA RETANA I MR#: [id number] CSN: [id number] : 1945 SEX: F HOME: WORK: This is a 73-year-old female with metastatic breast cancer with disease to lung , malignant right-sided pleural effusion with a PleurX catheter in place, liver metastases, bone metastases, who was transferred from outside facility for abdominal distention, generalized volume overload, and anasarca. In addition, the patient was noted to have hypocalcemia. INTERVAL HISTORY: Corrected calcium slightly better. The patient received calcium gluconate yesterday. Endorses increased weight gain and volume and swelling. REVIEW OF SYSTEMS: CONSTITUTIONAL: No fevers or chills. RESPIRATORY: No new cough or dyspnea. CARDIOVASCULAR SYSTEM: No chest pain or palpitations. ABDOMEN: Abdominal discomfort. CENTRAL NERVOUS SYSTEM: No headache or dizziness. MUSCULOSKELETAL: No joint or bone aches. PHYSICAL EXAMINATION: VITALS: Reviewed. CONSTITUTIONAL: No distress. RESPIRATORY: Bilateral air entry present. Posterior crackles noted. Right PleurX catheter in place. ABDOMEN: Soft, ascites present, mild diffuse tenderness noted. Bowel sounds present. CENTRAL NERVOUS SYSTEM: Alert, oriented x3. EXTREMITIES: Generalized lower extremity edema noted. LABORATORY: Reviewed. ASSESSMENT: 1. Anasarca in the setting of hypoalbuminemia with no overt proteinuria on urinalysis; suspect from malignancy and poor oral intake. 2. Possible bacterial peritonitis versus malignancy related. 3. Suspected urinary retention. 4. History of right upper extremity DVT, on very low dose Eliquis due to significant epistaxis with higher doses. PLAN: Initiate ceftriaxone. Follow Gram stain and culture results. Fluid analysis not completely indicative of bacterial peritonitis. Provide another dose of calcium gluconate. Recheck labs in the a.m.Continue albumin. Change Lasix to IV Lasix. Follow further response. Continue low-dose Eliquis. Continue anastrozole. Continue doxazosin. Continue potassium supplementation. Follow further response. PT/OT consultation. We will plan to discontinue Rosa catheter and reassess voiding trials. TIME SPENT: Greater than 35 minutes. Greater than 50% of the time was spent in counseling and coordination of care. Discussed with the primary oncology team as well and updated them on the care plan. Mack Lares M.D., Hospitalist Job ID/Trans ID: [id number] Doc ID: [id number] ENVIRONMENTAL COMMUNICATIONS SPECIALIST CST documented in this encounter Plan of Treatment Date Type Specialty Care Team Description 02/20/2019 Office Visit Oncology [place] MD [address] [place] [address] [phone] 02/20/2019 Appointment INFUSION Name Priority Associated Diagnoses Date/Time CULTURE BACTERIAL, OTHER WITH Routine 02/10/2019 2:29 PM CDT GRAM STAIN Health Maintenance Due Date Last Done Comments Hepatitis C Screening 1945 Tetanus Vaccine 1964 Mammogram 1986 Colorectal Cancer Screening 1996 Zoster Vaccine (1 of 2 - 1996 RZV,Shingrix) [employer] Directive 2011 document DEXA/Heel Scan 2011 Pneumococcal 65yr+ High 2011 Risk(Category 2,3) (1 of 2 - PCV13) Influenza Vaccine (Season Ended) 2019 Lipid Screening 03/15/2020 03/15/2015 Diabetes Screening 02/14/2022 02/14/2019, 02/13/2019, 02/12/2019, Additional history exists documented as of this encounter Procedures Procedure Name Priority Date/Time Associated Comments Diagnosis LAB ONLY-COMPLETE Routine 02/14/2019 5:41 Results for this BLOOD COUNT WITH AM CDT procedure are in DIFFERENTIAL the results section. MAGNESIUM Routine 02/14/2019 5:41 Results for this AM CDT procedure are in the results section. RENAL FUNCTION PANEL Routine 02/14/2019 5:41 Results for this AM CDT procedure are in the results section. COMPLETE BLOOD COUNT Routine 02/14/2019 5:41 Results for this WITH DIFFERENTIAL AM CDT procedure are in the results section. RENAL FUNCTION PANEL Routine 02/13/2019 6:01 Results for this AM CDT procedure are in the results section. CT ABDOMEN PELVIS WITH ELIAS 02/12/2019 3:04 Results for this CONTRAST PM CDT procedure are in the results section. MAGNESIUM Routine 02/12/2019 5:45 Results for this AM CDT procedure are in the results section. RENAL FUNCTION PANEL Routine 02/12/2019 5:45 Results for this AM CDT procedure are in the results section. LAB ONLY-COMPLETE Routine 02/11/2019 5:42 Results for this BLOOD COUNT WITH AM CDT procedure are in DIFFERENTIAL the results section. MAGNESIUM Routine 02/11/2019 5:42 Results for this AM CDT procedure are in the results section. RENAL FUNCTION PANEL Routine 02/11/2019 5:42 Results for this AM CDT procedure are in the results section. COMPLETE BLOOD COUNT Routine 02/11/2019 5:42 Results for this WITH DIFFERENTIAL AM CDT procedure are in the results section. IR PARACENTESIS Routine 02/10/2019 2:36 Results for this PM CDT procedure are in the results section. LAB ONLY-DIFFERENTIAL, Routine 02/10/2019 2:29 Results for this BODY FLUID PM CDT procedure are in the results section. LAB ONLY-CELL COUNT, Routine 02/10/2019 2:29 Results for this BODY FLUID PM CDT procedure are in the results section. CELL COUNT AND DIFF, Routine 02/10/2019 2:29 Results for this BODY FLUID PM CDT procedure are in the results section. PROTEIN, BODY FLUID Routine 02/10/2019 2:29 Results for this PM CDT procedure are in the results section. ALBUMIN, BODY FLUID Routine 02/10/2019 2:29 Results for this PM CDT procedure are in the results section. CYTOLOGY-BODY Routine 02/10/2019 2:28 Results for this FLUID/OTHER PM CDT procedure are in the results section. LAB ONLY-MANUAL Routine 02/10/2019 5:40 Results for this DIFFERENTIAL AM CDT procedure are in the results section. LAB ONLY-COMPLETE Routine 02/10/2019 5:40 Results for this BLOOD COUNT WITH AM CDT procedure are in DIFFERENTIAL the results section. HEPATIC FUNCTION PANEL Routine 02/10/2019 5:40 Results for this AM CDT procedure are in the results section. BASIC METABOLIC PANEL Routine 02/10/2019 5:40 Results for this AM CDT procedure are in the results section. COMPLETE BLOOD COUNT Routine 02/10/2019 5:40 Results for this WITH DIFFERENTIAL AM CDT procedure are in the results section. CULTURE BACTERIAL, Routine 02/10/2019 4:15 Results for this URINE AM CDT procedure are in the results section. URINALYSIS, REFLEX TO Routine 02/10/2019 4:15 Results for this CULTURE AM CDT procedure are in the results section. SODIUM, URINE Routine 02/10/2019 4:15 Results for this AM CDT procedure are in the results section. LAB ONLY-COMPLETE Routine 02/09/2019 9:51 Results for this BLOOD COUNT WITH PM CDT procedure are in DIFFERENTIAL the results section. PROCALCITONIN Routine 02/09/2019 9:51 Results for this PM CDT procedure are in the results section. C-REACTIVE PROTEIN Routine 02/09/2019 9:51 Results for this (INFLAMMATION) PM CDT procedure are in the results section. COMPREHENSIVE Routine 02/09/2019 9:51 Results for this METABOLIC PANEL PM CDT procedure are in the results section. COMPLETE BLOOD COUNT Routine 02/09/2019 9:51 Results for this WITH DIFFERENTIAL PM CDT procedure are in the results section. CULTURE, BLOOD Routine 02/09/2019 9:50 Results for this PM CDT procedure are in the results section. PREALBUMIN Routine 02/09/2019 9:50 Results for this PM CDT procedure are in the results section. LACTIC ACID Routine 02/09/2019 9:50 Results for this PM CDT procedure are in the results section. CULTURE, BLOOD Routine 02/09/2019 9:42 Results for this PM CDT procedure are in the results section. EKG Routine 02/09/2019 2:39 Results for this PM CDT procedure are in the results section. US PELVIC LIMITED Routine 02/09/2019 1:26 Results for this PM CDT procedure are in the results section. LAB ONLY-COMPLETE STAT 02/09/2019 12:05 Results for this BLOOD COUNT WITH PM CDT procedure are in DIFFERENTIAL the results section. COLLECT AND HOLD STAT 02/09/2019 12:05 Results for this LAVENDER (EDTA) TOP PM CDT procedure are in TUBE the results section. COMPREHENSIVE STAT 02/09/2019 12:05 Results for this METABOLIC PANEL PM CDT procedure are in the results section. BASIC METABOLIC PANEL STAT 02/09/2019 12:05 Results for this PM CDT procedure are in the results section. COMPLETE BLOOD COUNT STAT 02/09/2019 12:05 Results for this WITH DIFFERENTIAL PM CDT procedure are in the results section. documented in this encounter Results LAB ONLY-COMPLETE BLOOD COUNT WITH DIFFERENTIAL (02/14/2019 5:41 AM CDT)Only the most recent of5 resultswithin the time period is included. WBC 3.6 (L) 4.0 - 11.0 K/uL [facility] RBC 3.12 (L) 3.80 - 5.30 M/uL [facility] Hemoglobin 9.2 (L) 11.5 - 15.8 g/dL [facility] Hematocrit 30.0 (L) 35.0 - 45.0 % [facility] MCV 96.2 80.0 - 98.0 fL [facility] MCH 29.5 25.5 - 34.0 pg [facility] MCHC 30.7 (L) 31.5 - 36.5 g/dL [facility] RDW-CV 17.0 (H) 11.5 - 15.5 % [facility] RDW-SD 60.1 (H) 35.5 - 50.0 fl [facility] Platelet Count 246 140 - 400 K/uL [facility] MPV 8.6 8.5 - 12.0 fL [facility] Seg Neut Absolute 2.1 1.8 - 8.0 K/uL [facility] Lymphocytes Absolute 0.7 (L) 0.8 - 4.1 K/uL [facility] Monocytes Absolute 0.4 0.0 - 1.0 K/uL [facility] Eosinophils Absolute 0.3 0.0 - 0.7 K/uL [facility] Basophil Absolute 0.0 0.0 - 0.2 K/uL [facility] Immature Granulocyte Absolute 0.04 0.00 - 0.06 K/uL [facility] Neutrophils Abs. (Segs and Bands) 2,100 /uL [facility] Neutrophils Percent 57.9 % [facility] Lymphocytes Percent 20.1 % [facility] Monocytes Percent 12.0 % [facility] Immature Granulocyte Percent 1.1 % [facility] Eosinophils Percent 7.8 % [facility] Basophil Percent 1.1 % [facility] Nucleated RBC 0 /100 WBC's [facility] Specimen Blood - Blood Performing Organization Address City/[facility]/Zipcode Phone Number [address] [phone] MAGNESIUM (02/14/2019 5:41 AM CDT)Only the most recent of3 resultswithin the time period is included. Magnesium 2.1 1.8 - 2.4 mg/dL [facility] Specimen Blood - Blood Performing Organization Address [facility] Phone Number [address] [address] RENAL FUNCTION PANEL (02/14/2019 5:41 AM CDT)Only the most recent of4 resultswithin the time period is included. Glucose 94 70 - 100 mg/dL [facility] BUN 13 6 - 22 mg/dL [facility] Creatinine 0.48 (L) 0.60 - 1.10 mg/dL [facility] BUN/Creatinine Ratio 27.1 (H) 10.0 - 25.0 [facility] Sodium 143 135 - 145 meq/L [facility] Potassium 3.3 (L) 3.5 - 5.3 meq/L [facility] Chloride 109 99 - 110 meq/L [facility] CO2 29 20 - 29 meq/L [facility] Anion Gap with K 8 6 - 20 meq/L [facility] Calcium 7.3 (L) 8.5 - 10.5 mg/dL [facility] Phosphorus 2.4 (L) 2.5 - 4.5 mg/dL [facility] Albumin 3.7 3.5 - 5.0 g/dL [facility] Corrected Calcium 7.5 (L) 8.5 - 10.5 mg/dL [facility] Age 73 Years [facility] eGFR Non- >90 >=60 mL/min/1.73m2 [facility] eGFR >90 >=60 mL/min/1.73m2 [facility] Specimen Blood - Blood Performing Organization Address City/State/Zipcode Phone Number [facility] [address] [place], [place] [phone] CT ABDOMEN PELVIS WITH CONTRAST (02/12/2019 3:04 PM CDT) Narrative Performed At [facility] Patient Name: SABRINA RETANA Date of :1945 Procedure: CT ABDOMEN PELVIS WITH CONTRAST Date of Service: 02/12/2019 EXAM: CT ABDOMEN PELVIS WITH CONTRAST INDICATION: Breast Cancer, Surveillance Follow-up / Suspected or known Recurrence TECHNIQUE: CT of the abdomen and pelvis was performed following the administration of intravenous and enteric contrast.Coronal and sagittal reformatted images were created. COMPARISON(S): CT of chest 12/04/2018. Most recent CT abdomen pelvis 10/15/2008. FINDINGS: Visualized lung bases: Large layering bilateral pleural effusions. Right chest tube distal tip anteriorly along the middle lobe not entirely visualized. Small anterior pneumothorax. Compressive atelectasis and subsegmental atelectasis at the lung bases bilaterally. Heart is enlarged. Distal tip of a central line terminates in the SVC. Coronary artery calcifications. Small pericardial effusion. Liver: Nodular hepatic contour with innumerable hepatic hypodensities and areas of hepatic capsular retraction consistent with diffuse metastases. Gallbladder/Biliary: Abnormal gallbladder wall thickening. Cholelithiasis. Pancreas: Unremarkable. Adrenals: Unremarkable. Spleen: Splenomegaly. Kidneys/Ureters/Bladder/: Hyperdense 10 mm right renal cyst unchanged from 2009. Fluid attenuation left renal cyst. Heterogeneous enhancement of the kidneys bilaterally. Multiple uterine fibroids, some of which are calcified. Distal tip of the catheter is within the urinary bladder small amount of air within the urinary bladder is presumed related to manipulation. Gastrointestinal/Mesentery/Peritoneal cavity: Small volume of stool. Terminal ileum is unremarkable. Appendix not identified. No bowel obstruction. No free air. Large volume of abdominal ascites. Mesenteric fat stranding. Small gastroesophageal hiatal hernia. Vessels: Grossly normal abdominal aorta.Grossly unremarkable inferior vena cava. Lymph Nodes: No retroperitoneal, mesenteric, abdominopelvic or inguinal lymphadenopathy. Bones/Vertebra/Soft tissues/Abdominal/Pelvic wall: Diffuse skeletal metastases. Anasarca. IMPRESSION: 1.No acute bowel pathology. No free air. 2.Diffuse hepatic and skeletal metastases with findings suspicious for renal metastases. 3.Large volume of ascites. 4.Large bilateral pleural effusions. Right chest tube. Tiny visualized right pneumothorax. 5.Distal tip of a Rosa catheter balloon is within the urinary bladder; urinary bladder is moderately distended. Correlate with functioning of the catheter recommended; Rosa may have been clamped at the time of evaluation. Finalized by: Lizet Horn MD on 02/12/2019 3:50 PM Patient/Procedure Information: [facility] MRN/GEO: [id number] Order Number: [id number] Accession Number: [id number] Ordering Provider: MACK LARES Authorizing Provider: MACK LARES Procedure Note Interface, Radiantres - 02/12/2019 3:52 PM CDT Patient Name: SABRINA RETANA Date of : 1945 Procedure: CT ABDOMEN PELVIS WITH CONTRAST Date of Service: 02/12/2019 EXAM: CT ABDOMEN PELVIS WITH CONTRAST INDICATION: Breast Cancer, Surveillance Follow-up / Suspected or known Recurrence TECHNIQUE: CT of the abdomen and pelvis was performed following the administration of intravenous and enteric contrast. Coronal and sagittal reformatted images were created. COMPARISON(S): CT of chest 12/04/2018. Most recent CT abdomen pelvis 10/15/2008. FINDINGS: Visualized lung bases: Large layering bilateral pleural effusions. Right chest tube distal tip anteriorly along the middle lobe not entirely visualized. Small anterior pneumothorax. Compressive atelectasis and subsegmental atelectasis at the lung bases bilaterally. Heart is enlarged. Distal tip of a central line terminates in the SVC. Coronary artery calcifications. Small pericardial effusion. Liver: Nodular hepatic contour with innumerable hepatic hypodensities and areas of hepatic capsular retraction consistent with diffuse metastases. Gallbladder/Biliary: Abnormal gallbladder wall thickening. Cholelithiasis. Pancreas: Unremarkable. Adrenals: Unremarkable. Spleen: Splenomegaly. Kidneys/Ureters/Bladder/: Hyperdense 10 mm right renal cyst unchanged from 2009. Fluid attenuation left renal cyst. Heterogeneous enhancement of the kidneys bilaterally. Multiple uterine fibroids, some of which are calcified. Distal tip of the catheter is within the urinary bladder small amount of air within the urinary bladder is presumed related to manipulation. Gastrointestinal/Mesentery/Peritoneal cavity: Small volume of stool. Terminal ileum is unremarkable. Appendix not identified. No bowel obstruction. No free air. Large volume of abdominal ascites. Mesenteric fat stranding. Small gastroesophageal hiatal hernia. Vessels: Grossly normal abdominal aorta. Grossly unremarkable inferior vena cava. Lymph Nodes: No retroperitoneal, mesenteric, abdominopelvic or inguinal lymphadenopathy. Bones/Vertebra/Soft tissues/Abdominal/Pelvic wall: Diffuse skeletal metastases. Anasarca. IMPRESSION: 1. No acute bowel pathology. No free air. 2. Diffuse hepatic and skeletal metastases with findings suspicious for renal metastases. 3. Large volume of ascites. 4. Large bilateral pleural effusions. Right chest tube. Tiny visualized right pneumothorax. 5. Distal tip of a Rosa catheter balloon is within the urinary bladder; urinary bladder is moderately distended. Correlate with functioning of the catheter recommended; Rosa may have been clamped at the time of evaluation. Finalized by: Lizet Horn MD on 02/12/2019 3:50 PM Patient/Procedure Information: [facility] MRN/GEO: [id number] Order Number: [id number] Accession Number: [id number] Ordering Provider: MACK LARES Authorizing Provider: MACK LARES Performing Organization Address City/State/Zipcode Phone Number [facility] IR PARACENTESIS (02/10/2019 2:36 PM CDT) Narrative Performed At Name: SABRINA RETANA I LAB : 1945/73Y/F IR PARACENTESIS 02/10/2019 14:36:00 INDICATION:ascites EXAM: ULTRASOUND-GUIDED PARACENTESIS. HISTORY: A 73-year-old female with ascites. PROCEDURE: After consent was obtained, patient was placed supine upon the angiography table and preliminary ultrasound was obtained. Abdomen was prepped and draped in the usual sterile manner. After 1% lidocaine local anesthesia, Yueh needle was placed into the ascitic fluid in the right upper quadrant under direct ultrasound guidance. Paracentesis of 1700 mL was performed. Needle was removed. Patient tolerated procedure well with no apparent complications. FINDINGS: Initial ultrasound demonstrates ascites. Ultrasound-guided paracentesis of 1700 mL of clear, yellow fluid as described above without complication. IMPRESSION: 1. Paracentesis of 1700 mL. 2. Fluid sent for desired analysis. Isidoro Acosta M.D., Interventional Radiology/[id number] Job ID/Trans ID:[id number] Doc ID:[id number] ENVIRONMENTAL COMMUNICATIONS SPECIALIST ENVIRONMENTAL COMMUNICATIONS SPECIALIST cc: Mack Lares M.D., Hospitalist CSN: [id number] Order Phys:MACK LARES MR#/GEO#: [id number] Order ID: [id number] Admit Date:02/09/2019 [facility] RADIOLOGY REPORT [facility] Performing Organization Address City/[facility]/Zipcode Phone Number LAB LAB ONLY-DIFFERENTIAL, BODY FLUID (02/10/2019 2:29 PM CDT) % Neutrophils BF 60 % [facility] % Lymphocytes BF 25 % [facility] % Macrophage/Monocyte BF 14 % [facility] % Mesothelials BF 1 % [facility] Specimen Fluid - Peritoneal/Ascites Performing Organization Address [facility] Phone Number [address] [place] [address] LAB ONLY-CELL COUNT, BODY FLUID (02/10/2019 2:29 PM CDT) Specimen Source Peritoneal/Ascites [facility] BF Clarity/Appearance Slightly Cloudy [facility] BF Nucleated Cells 927 /uL [facility] Specimen Fluid - Peritoneal/Ascites Narrative Performed At The reference range and other method performance [facility] specifications are unavailable for this body fluid. Comparison of this result with the concentration in the blood, serum, or plasma is recommended. Performing Organization Address [facility] Phone Number [address] [address] ALBUMIN, BODY FLUID (02/10/2019 2:29 PM CDT) Albumin Body Fluid 0.9 g/dL [facility] Specimen Source Peritoneal/Ascites [facility] Specimen Fluid - Peritoneal/Ascites Narrative Performed At The reference range and other method performance [facility] specifications are unavailable for this body fluid.Comparison of this result with the concentration in the blood, serum, or plasma is recommended. Performing Organization Address [facility] Phone Number [address] [address] PROTEIN, BODY FLUID (02/10/2019 2:29 PM CDT) Protein Body Fluid 1.5 g/dL [facility] Specimen Source Peritoneal/Ascites [facility] Specimen Fluid - Peritoneal/Ascites Narrative Performed At The reference range and other method performance [facility] specifications are unavailable for this body fluid.Comparison of this result with the concentration in the blood, serum, or plasma is recommended. Performing Organization Address [facility] Phone Number [address] [address] CYTOLOGY-BODY FLUID/OTHER (02/10/2019 2:28 PM CDT) CASE REPORT Medical Cytology Report Case: [id number] [facility] Authorizing Provider:Mack Lares, Collected: 02/10/2019 Ree KWOK Ordering Location: [facility] 7SReceived: 02/10/2019 1443 Pathologist: Yolanda Luna MD Specimen:Peritoneal/Ascites, Ascites Fluid FINAL DIAGNOSIS A. Peritoneal/Ascites: [facility] Atypical. - Rare atypical epithelioid cells among numerous benign and reactive mesothelial cells, and blood elements with many lymphocytes and neutrophils. - Properly controlled immunostains performed on cell block sections reveal that Calretinin is positive for mesothelial cells, ROLF-3 and ER are negative. Please see comment. Comment: One atypical cell only present in one of the cell block section H&E slides and no additional atypical cells or tumor cells identified in immunostains and additional level. If clinical suspi cion for malignant effusion is high, repeat paracentesis for cytology is recommended. GROSS DESCRIPTION RECEIVED 80 ML HAZY YELLOW FLUID PREPARED 2 SLIDES AND CELL BLOCK USING CONCENTRATION TECHNIQUE. KK EMBEDDED IMAGES [facility] Specimen Fluid - Peritoneal/Ascites Performing Organization Address [facility] Phone Number [address] [address] [address] [place] [address] LAB ONLY-MANUAL DIFFERENTIAL (02/10/2019 5:40 AM CDT) Neutrophils Abs. (Segs and Bands) 7,708 /uL [facility] Seg Neut Absolute 7.7 1.8 - 8.0 K/uL [facility] Lymphocytes Absolute 0.3 (L) 0.8 - 4.1 K/uL [facility] Monocytes Absolute 0.2 0.0 - 1.0 K/uL [facility] Neutrophils Percent 94.0 % [facility] Lymphocytes Percent 4.0 % [facility] Monocytes Percent 2.0 % [facility] Platelet Morphology Normal [facility] RBC Morphology Normal [facility] Specimen Blood - Blood Performing Organization Address [facility] Phone Number [address] [address] HEPATIC FUNCTION PANEL (02/10/2019 5:40 AM CDT) Alkaline Phosphatase 157 (H) 30 - 150 U/L [facility] AST - SGOT 22 0 - 35 U/L [facility] ALT - SGPT 14 0 - 55 U/L [facility] Bilirubin Total 0.6 0.2 - 1.2 mg/dL [facility] Bilirubin Indirect 0.3 0.0 - 0.8 mg/dL [facility] Bilirubin Direct 0.3 0.0 - 0.4 mg/dL [facility] Albumin 2.3 (L) 3.5 - 5.0 g/dL [facility] Protein Total 4.2 (L) 6.0 - 8.2 g/dL [facility] Specimen Blood - Blood Performing Organization Address [facility] Phone Number [facility] [address] [place] [address] BASIC METABOLIC PANEL (02/10/2019 5:40 AM CDT)Only the most recent of2 resultswithin the time period is included. Glucose 111 (H) 70 - 100 mg/dL [facility] BUN 25 (H) 6 - 22 mg/dL [facility] Creatinine 0.59 (L) 0.60 - 1.10 mg/dL [facility] BUN/Creatinine Ratio 42.4 (H) 10.0 - 25.0 [facility] Sodium 133 (L) 135 - 145 meq/L [facility] Potassium 3.6 3.5 - 5.3 meq/L [facility] Chloride 108 99 - 110 meq/L [facility] CO2 24 20 - 29 meq/L [facility] Anion Gap with K 5 (L) 6 - 20 meq/L [facility] Calcium 6.8 (L) 8.5 - 10.5 mg/dL [facility] Age 73 Years [facility] eGFR Non- >90 >=60 mL/min/1.73m2 [facility] eGFR >90 >=60 mL/min/1.73m2 [facility] Specimen Blood - Blood Performing Organization Address [facility] Phone Number [facility] [address] [place] [address] CULTURE BACTERIAL, URINE (02/10/2019 4:15 AM CDT) Culture Result No growth [facility] Specimen Urine - Clean Catch Performing Organization Address [facility] Phone Number [facility] [address] [place] [address] SODIUM, URINE (02/10/2019 4:15 AM CDT) Sodium Urine <20 meq/L [facility] Specimen Urine - Voided Performing Organization Address [facility] Phone Number [address] [place] [address] URINALYSIS, REFLEX TO CULTURE (02/10/2019 4:15 AM CDT) Color Urine Chiara Colorless, Yellow, [facility] Straw, Dark Yellow, [place]ara Clarity Urine Clear Clear [facility] Glucose Urine Negative Negative [facility] Bilirubin Urine <2 mg/dL <2 mg/dL [facility] Ketone Urine 5 mg/dL Negative, 5 mg/dL [facility] Specific [place] 1.017 1.002 - 1.035 [facility] Blood Urine Moderate (A) Negative [facility] pH Urine 6.0 5.0, 5.5, 6.0, 6.5, [facility] 7.0, 7.5, 8.0 Protein Urine 30 mg/dL (A) Negative [facility] Urobilinogen Urine <2 mg/dL <2 mg/dL [facility] Nitrite Urine Negative Negative [facility] Leukocyte Esterase Urine Small (A) Negative [facility] WBC Urine 30-49 (A) Negative, 0-2, 3-5 /HPF [facility] RBC Urine 6-10 (A) Negative, 0-2 /HPF [facility] Cast, Hyaline 11-19 (A) Negative, 0-2 /LPF [facility] Specimen Urine - Clean Catch Narrative Performed At Criteria has been met for ordering the urine culture test. [facility] Urine specimen met reflex to culture criteria.Urine Culture set up. Performing Organization Address City/State/Zipcode Phone Number [facility] [address] [facility] [address] COMPREHENSIVE METABOLIC PANEL (02/09/2019 9:51 PM CDT)Only the most recent of2 resultswithin the time period is included. Glucose 143 (H) 70 - 100 mg/dL [facility] BUN 26 (H) 6 - 22 mg/dL [facility] Creatinine 0.64 0.60 - 1.10 mg/dL [facility] BUN/Creatinine Ratio 40.6 (H) 10.0 - 25.0 [facility] Sodium 132 (L) 135 - 145 meq/L [facility] Potassium 3.7 3.5 - 5.3 meq/L [facility] Chloride 106 99 - 110 meq/L [facility] CO2 22 20 - 29 meq/L [facility] Anion Gap with K 8 6 - 20 meq/L [facility] Calcium 6.5 (L) 8.5 - 10.5 mg/dL [facility] Protein Total 4.3 (L) 6.0 - 8.2 g/dL [facility] Albumin 2.1 (L) 3.5 - 5.0 g/dL [facility] Alkaline Phosphatase 186 (H) 30 - 150 U/L [facility] AST - SGOT 20 0 - 35 U/L [facility] ALT - SGPT 15 0 - 55 U/L [facility] Bilirubin Total 0.6 0.2 - 1.2 mg/dL [facility] Corrected Calcium 8.0 (L) 8.5 - 10.5 mg/dL [facility] Age 73 Years [facility] eGFR Non- >90 >=60 mL/min/1.73m2 [facility] eGFR >90 >=60 mL/min/1.73m2 [facility] Specimen Blood - Blood Performing Organization Address City/State/Zipcode Phone Number [address] [phone] PROCALCITONIN (02/09/2019 9:51 PM CDT) Procalcitonin 0.83 (H) <0.07 ng/mL [facility] Specimen Blood - Blood Narrative Performed At Suspected Lower Respiratory Tract Infection: [facility] 0.1-0.25: Low risk for bacterial infection; Antibiotics discouraged. > 0.25: Increased likelihood for bacterial infection; Antibiotics encouraged. Suspected Sepsis: 0.1-0.5: Low likelihood for sepsis; Antibiotics discouraged. > 0.5: Increased Likelihood for sepsis; Antibiotics encouraged. > 2.0: High risk of sepsis/septic shock; Antibiotics strongly encouraged. Decisions on antibiotic use should not be based solely on procalcitonin levels. If antibiotics are administered, repeat procalcitonin testing should be performed every 2-3 days to consider early antibiotic cessation. PCT is a dynamic biomarker and most useful when trends are analyzed over time in accompaniment with other clinical data. Performing Organization Address [facility] Phone Number [address] [address] C-REACTIVE PROTEIN (INFLAMMATION) (02/09/2019 9:51 PM CDT) CRP 169.5 (H) 0.0 - 8.0 mg/L [facility] Specimen Blood - Blood Performing Organization [facility] Number [address] [address] PREALBUMIN (02/09/2019 9:50 PM CDT) Prealbumin 5.0 (L) 20.0 - 40.0 mg/dL [address] Specimen Blood - Blood Performing [facility] Number [address] [place] [phone] CULTURE, BLOOD (02/09/2019 9:50 PM CDT)Only the most recent of2 resultswithin the time period is included. Culture Result No growth at 5 days [facility] Specimen Blood - Blood Performing Organization [facility] Number [address] [phone] LACTIC ACID (02/09/2019 9:50 PM CDT) Lactic Acid 0.8 0.5 - 2.2 mmol/L [facility] Specimen Blood - Blood Performing Organization [facility] Phone Number [address] [phone] EKG (02/09/2019 2:39 PM CDT) EKG [facility] Normal sinus rhythm Possible Inferior infarct , age undetermined Possible Anterolateral infarct , age undetermined Abnormal ECG Ventricular Rate: 80 BPM Atrial Rate: 80 BPM P-R Interval: 152 ms QRS Duration: 78 ms Q-T Interval: 432 ms QTc Calculation(Bazett): 498 ms Calculated P [place]: 27 degrees Calculated R [place]: -10 degrees Calculated T [place]: 46 degrees Narrative Performed At Performing Organization Address [facility]/Zipcode Phone Number JOSSELIN CRUZ US PELVIC LIMITED (02/09/2019 1:26 PM CDT) Narrative Performed At [facility] Patient Name: SABRINA RETANA Date of :1945 Procedure: US PELVIC LIMITED Date of Service: 02/09/2019 EXAM: US PELVIC LIMITED INDICATION: consern for urinary retention COMPARISON: None available. FINDINGS: Transabdominal imaging performed to evaluate bladder. A Rosa catheter is in place. Bladder volume is about 135 mL. Bladder wall is diffusely thickened. Ascites is noted. Finalized by: Jaguar Pena MD on 02/09/2019 1:41 PM Patient/Procedure Information: [facility] MRN/GEO: [id number] Order Number: [id number] Accession Number: [id number] Ordering Provider: DARINO PLASCENCIA Authorizing Provider: DARION PLASCENCIA Procedure Note Interface, Radiantres - 02/09/2019 1:43 PM CDT Patient Name: SABRINA RETANA Date of : 1945 Procedure: US PELVIC LIMITED Date of Service: 02/09/2019 EXAM: US PELVIC LIMITED INDICATION: consern for urinary retention COMPARISON: None available. FINDINGS: Transabdominal imaging performed to evaluate bladder. A Rosa catheter is in place. Bladder volume is about 135 mL. Bladder wall is diffusely thickened. Ascites is noted. Finalized by: Jaguar Pena MD on 02/09/2019 1:41 PM Patient/Procedure Information: [facility] MRN/GEO: [id number] Order Number: [id number] Accession Number: [id number] Ordering Provider: DARION PLASCENCIA Authorizing Provider: DARION PLASCENCIA Performing Organization Address [facility]/Zipcode Phone Number [facility] COLLECT AND HOLD LAVENDER (EDTA) TOP TUBE (02/09/2019 12:05 PM CDT) Collect and Hold Specimen Status Comment: [facility] Spec[facility] Blood - Blood Performing Organization Address [facility]/Zipcode Phone Number [facility] [address] [facility] [place] [address] documented in this encounter Visit Diagnoses Diagnosis Malignant ascites - Primary Hypocalcemia Malignant neoplasm of overlapping sites of right breast in female, estrogen receptor positive (HCC) Pleural effusion on right Unspecified pleural effusion Dyspepsia Dyspepsia and other specified disorders of function of stomach Ascites Other ascites documented in this encounter Administered Medications Medication Order MAR Action Action Date Dose Rate Site acetaminophen (TYLENOL) tablet Given 02/15/2019 6:17 AM CDT 650 mg 650 mg 650 mg, Oral, Every four hours prn, Starting Sat02/09/19 at 1846, Until Discontinued, mild pain, If inadequate response in 60 minutes, may proceed to next choice option or if no other options, contact provider., Given 02/14/2019 9:02 PM CDT 650 mg Given 02/14/2019 8:47 AM CDT 650 mg albumin (human) 25 % IV solution 25 g Given 02/15/2019 8:59 AM CDT 25 g 25 g, IV, Three times a day, First dose on Sat02/11/19 at 1500, Until Discontinued, 100 mL, A bottle should not hang longer than 4 hours. Half hour before lasix, Given 02/14/2019 9:03 PM CDT 25 g Given 02/14/2019 3:37 PM CDT 25 g anastrozole (ARIMIDEX) tablet 1 mg Given 02/10/2019 8:08 AM CDT 1 mg 1 mg, Oral, DAILY, First dose on Sat02/10/19 at 0900, Until Discontinued, This medication is a low risk cytotoxic drug. Wear 2 pairs of chemo gloves for administration. If unable to administer dose intact - contact pharmacy for other administration options. Dispose of empty packages in the yellow cytotoxic waste. Dispose of unused or partial packages in the black waste containers., apixaban (ELIQUIS) tablet 2.5 mg Given 02/15/2019 8:58 AM CDT 2.5 mg 2.5 mg, Oral, DAILY, First dose on Sat02/10/19 at 0900, Until Discontinued Given 02/14/2019 8:31 AM CDT 2.5 mg Given 02/13/2019 8:19 AM CDT 2.5 mg bisacodyl (DULCOLAX) suppository 10 mg 10 mg, Rectal, One time a day prn, Starting Sat02/09/19 at 1846, Until Discontinued, constipation, Use SECOND for constipation. If patient cannot take oral medications, use first for constipation., calcium carbonate (TUMS) chewable tablet Given 02/15/2019 6:12 AM CDT 1, 000 mg 1,000 mg 1,000 mg, Oral, Two times a day, First dose on Yennifer 02/12/19 at 2000, Until Discontinued Given 02/14/2019 9:03 PM CDT 1,000 mg Given 02/14/2019 5:33 AM CDT 1,000 mg calcium carbonate (TUMS) chewable tablet 500 Given 02/09/2019 9:35 PM CDT 500 mg mg 500 mg, Oral, Four times a day prn, Starting 02/09/19 at 1958, Until Discontinued, indigestion docusate sodium (THEREVAC-SB MINI;ENEMEEZ MINI) 283 MG enema 1 enema 1 enema, Rectal, One time a day prn, Starting 02/09/19 at 1846, Until Discontinued, constipation, Use THIRD for constipation - if no BM 8 hours after ducolax suppository. If patient cannot take oral medications, use second for constipation., doxazosin (CARDURA) tablet 2 mg Given 02/15/2019 8:58 AM CDT 2 mg 2 mg, Oral, DAILY, First dose on e 02/10/19 at 0900, Until Discontinued Given 02/14/2019 8:31 AM CDT 2 mg Given 02/13/2019 8:19 AM CDT 2 mg furosemide (LASIX) tablet 40 mg Given 02/15/2019 8:58 AM CDT 40 mg 40 mg, Oral, Two times a day diuretic, First dose on 02/14/19 at 1600, Until Discontinued Given 02/14/2019 3:33 PM CDT 40 mg hEParin 100 units/ mL injection for Given 02/15/2019 8:59 AM CDT 500 Units heplock FLUSH 500 Units, IV, Daily, First dose on 02/15/19 at 0900, Until Discontinued, 5 mL, Flush with 20 mL sodium chloride 0.9% followed by 500 units (100 units/mL) heparin monthly when not accessed, hEParin 100 units/ mL injection for Given 02/15/2019 10:54 AM CDT 500 Units heplock FLUSH 500 Units, IV, As often as necessary prn, Starting 02/14/19 at 1748, Until Discontinued, other (Specify), port maintanence, 5 mL, Flush with 20 mL sodium chloride 0.9% followed by 500 units (100 units/mL) heparin after each use., magnesium oxide tablet 250 mg Given 02/15/2019 8:58 AM CDT 250 mg 250 mg, Oral, DAILY, First dose on Sat02/10/19 at 0900, Until Discontinued Given 02/14/2019 8:31 AM CDT 250 mg Given 02/13/2019 8:19 AM CDT 250 mg midodrine (PROAMATINE) tablet 2.5 mg Given 02/15/2019 6:12 AM CDT 2.5 mg 2.5 mg, Oral, Two times a day before meals, First dose on Sat02/10/19 at 0700, Until Discontinued, Doses should not be administered after the evening meal due to risk of supine hypertension., Given 02/14/2019 5:49 PM CDT 2.5 mg Given 02/14/2019 5:33 AM CDT 2.5 mg ondansetron (ZOFRAN ODT) dispersible tablet 4 mg 4 mg, Oral, Every four hours prn, Starting Sat02/09/19 at 1847, Until Discontinued, nausea, vomiting, Use FIRST. If ineffective after 30 minutes use ondansetron IV , ondansetron (ZOFRAN) injection solution 4 mg 4 mg, IV, Every four hours prn, Starting Sat02/09/19 at 1847, Until Discontinued, nausea, vomiting, 2 mL, Use SECOND. If ineffective after 30 minutes and ondansetron ODT used, call physician for alternative. If preference is to further dilute for IV administration: First draw up patient-specific dose, then dilute to 10 mL with 0.9% sodium chloride., potassium chloride (KLOR-CON M20) CR tablet Given 02/15/2019 10:36 AM CDT 20 mEq 20 mEq 20 mEq, Oral, DAILY, First dose on Sat02/10/19 at 0900, Until Discontinued, Tablet may be broken in half, but should not be crushed or chewed. Tablet may be dissolved in 4 oz of water., Given 02/14/2019 8:31 AM CDT 20 mEq Given 02/13/2019 8:19 AM CDT 20 mEq potassium phosphates-sodium phosphates Given 02/15/2019 8:58 AM CDT 1 tablet (Z-UDJQ-VBKIMAQ) tablet 1 tablet 1 tablet, Oral, Three times a day, First dose on Sat02/13/19 at 0900, Until Discontinued, Should be given with a full glass of water. Each tablet contains 250 mg of phosphorus., Given 02/14/2019 9:02 PM CDT 1 tablet Given 02/14/2019 3:33 PM CDT 1 tablet senna-docusate sodium Given 02/11/2019 4:01 PM CDT 2 tablets (SENOKOT-S;PERICOLACE) tablet 2 tablet 2 tablet, Oral, Two times a day prn, Starting Sat02/09/19 at 1846, Until Discontinued, constipation, Use FIRST for constipation unless patient cannot take oral medications., simethicone (MYLICON, GAS-X) chewable tablet Given 02/15/2019 6:17 AM CDT 160 mg 160 mg 160 mg, Oral, Every four hours prn, Starting Sat02/13/19 at 0103, Until Discontinued, flatulence Given 02/14/2019 11:31 PM CDT 160 mg Given 02/13/2019 6:11 AM CDT 160 mg sodium chloride 0.9% prefilled 10 mL syringe Given 02/15/2019 9:42 AM CDT 20 mL (Materials Management Item) 20 mL 20 mL, IV, Daily, First dose on Sat02/15/19 at 0900, Until Discontinued, 20 mL, Flush with 20 mL sodium chloride 0.9% followed by 500 units (100 units/mL) heparin monthly when not accessed, sodium chloride 0.9% prefilled 10 mL syringe Given 02/15/2019 10:54 AM CDT 20 mL (Materials Management Item) 20 mL 20 mL, IV, As often as necessary prn, Starting 02/14/19 at 1748, Until Discontinued, other (Specify), Port Maintanence, 20 mL, Flush with 20 mL sodium chloride 0.9% followed by 500 units (100 units/mL) heparin after each use., vitamin D3 (cholecalciferol) tablet Given 02/15/2019 8:58 AM CDT 1,000 Units 1,000 Units 1,000 Units, Oral, Daily, First dose on Sat02/13/19 at 0900, Until Discontinued Given 02/14/2019 8:31 AM CDT 1,000 Units Given 02/13/2019 8:19 AM CDT 1,000 Units Medication Order MAR Action Action Date Dose Rate Site albumin (human) 25 % IV solution 25 Given 02/11/2019 7:46 AM CDT 25 g g 25 g, IV, Two times a day, First dose on Sat02/09/19 at 2200, Until Discontinued, 100 mL, A bottle should not hang longer than 4 hours. Half hour before lasix, Given 02/10/2019 4:42 PM CDT 25 g Given 02/10/2019 10:25 AM CDT 25 g calcium carbonate-vitamin D (OSCAL 500 + Given 02/12/2019 12:00 PM CDT 1 tablet VIT D) 500 mg-200 unit tablet 1 tablet 1 tablet, Oral, Three times a day with meals, First dose on Sat02/09/19 at 2130, Until Discontinued, Give with food, Given 02/12/2019 8:11 AM CDT 1 tablet Given 02/11/2019 5:00 PM CDT 1 tablet calcium CHLORIDE 1,000 mg in Given 02/09/2019 2:44 PM CDT 1,000 mg 120 mL/ hr dextrose 5% 50 mL 1,000 mg (1 g), IV, at 120 mL/hr, One time, 1 dose, Sat02/09/19 at 1515, 60 mL, Central line preferred if available. Acceptable to give peripherally for urgent need and one-time administration. Pursue a central line for continuous use greater than 24 hours., calcium CHLORIDE 1,000 mg in Given 02/10/2019 1:20 AM CDT 1,000 mg 120 mL/ hr dextrose 5% 50 mL 1,000 mg (1 g), IV, at 120 mL/hr, One time, 1 dose, Sat02/09/19 at 2350, 60 mL, Central line preferred if available. Acceptable to give peripherally for urgent need and one-time administration. Pursue a central line for continuous use greater than 24 hours., calcium GLUCONATE 1,000 mg in Given 02/10/2019 8:48 PM CDT 1,000 mg 120 mL /hr dextrose 5% 50 mL 1,000 mg (1 g), IV, at 120 mL/hr, One time, 1 dose, [facility] 02/10/19 at 1930, 60 mL, Central line preferred if available. Acceptable to give peripherally for urgent need and one-time administration. Pursue a central line for continuous use greater than 24 hours., calcium GLUCONATE 1,000 mg in Given 02/13/2019 10:28 AM CDT 1,000 mg 120 mL /hr dextrose 5% 50 mL 1,000 mg (1 g), IV, at 120 mL/hr, One time, 1 dose, Sat02/13/19 at 1000, 60 mL, Central line preferred if available. Acceptable to give peripherally for urgent need and one-time administration. Pursue a central line for continuous use greater than 24 hours., calcium GLUCONATE 1,000 mg in Given 02/14/2019 10:53 AM CDT 1,000 mg 120 mL /hr dextrose 5% 50 mL 1,000 mg (1 g), IV, at 120 mL/hr, One time, 1 dose, Sat02/14/19 at 1000, 60 mL, Central line preferred if available. Acceptable to give peripherally for urgent need and one-time administration. Pursue a central line for continuous use greater than 24 hours., cefTRIAXone (ROCEPHIN) 1000 mg/10 mL IV Given 02/09/2019 10:20 PM CDT 1,000 mg syringe in sterile water 1,000 mg, IV, One time, 1 dose, Sat02/09/19 at 2200, 10 mL, Flush IV line with normal saline prior and post administration. Do not administer with calcium containing solutions (example: Lactated Ringer's, TPN with calcium, etc) as these are not compatible with ceftriaxone. Administer over 5 minutes., cefTRIAXone (ROCEPHIN) 2000 mg/20 mL IV Given 02/14/2019 6:35 PM CDT 2,000 mg syringe in sterile water 2,000 mg, IV, Every twenty four hours, First dose on Sat02/10/19 at 1900, Until Discontinued, 20 mL, Administer over 5 minutes. Flush IV line with normal saline prior and post administration. Do not administer with calcium containing solutions (example: Lactated Ringer's, TPN with calcium, etc) as these are not compatible with ceftriaxone. Administer over 5 minutes., Given 02/13/2019 6:42 PM CDT 2,000 mg Given 02/12/2019 7:43 PM CDT 2,000 mg cyanocobalamin (VITAMIN B-12 DOTS) Given 02/13/2019 8:19 AM CDT 5,000 mcg sublingual tablet 5,000 mcg 5,000 mcg, Sublingual, Daily, First dose on Sat02/10/19 at 0900, Until Discontinued Given 02/12/2019 8:11 AM CDT 5,000 mcg Given 02/11/2019 8:08 AM CDT 5,000 mcg furosemide (LASIX) injection solution 40 mg Given 02/11/2019 9:11 AM CDT 40 mg 40 mg, IV, Two times a day diuretic, First dose on Sat02/10/19 at 1915, Until Discontinued, 4 mL, If preference is to further dilute for IV administration: First draw up patient-specific dose, then dilute to 10 mL with 0.9% sodium chloride. Administer SLOW IV push., Given 02/10/2019 7:28 PM CDT 40 mg furosemide (LASIX) injection solution 40 mg Given 02/14/2019 9:44 AM CDT 40 mg 40 mg, IV, Three times a day, First dose on Sat02/11/19 at 1500, Until Discontinued, 4 mL, If preference is to further dilute for IV administration: First draw up patient-specific dose, then dilute to 10 mL with 0.9% sodium chloride. Administer SLOW IV push., Given 02/13/2019 9:04 PM CDT 40 mg Given 02/13/2019 3:44 PM CDT 40 mg furosemide (LASIX) tablet 40 mg Given 02/10/2019 4:42 PM CDT 40 mg 40 mg, Oral, Two times a day diuretic, First dose on Sat02/10/19 at 0800, Until Discontinued Given 02/10/2019 8:09 AM CDT 40 mg iohexol (OMNIPAQUE) (140 mg/mL) 50 mL in Given 02/12/2019 1:00 PM CDT 250 mL water 950 mL oral contrast (adult) 250 mL, Oral, Every thirty minutes, 4 doses, First dose on Sat02/12/19 at 1230, Last dose on Sat02/12/19 at 1400, 1,000 mL, Give 250 mL 30,60,90,and 120 minutes prior to scan. Bottle contains 1000 mL=4 doses Swirl prior to giving orally., Given 02/12/2019 12:27 PM CDT 250 mL iohexol (OMNIPAQUE) 350 mg/mL solution 100 mL Given 02/12/2019 3:00 PM CDT 76 mL 100 mL, IV, Now imaging, 1 dose, Starting Yennifer 02/12/19 at 1505, Until Yennifer 02/12/19 at 1500, 100 mL ondansetron (ZOFRAN) injection solution 4 mg Given 02/09/2019 12:22 PM CDT 4 mg 4 mg, IV, Now, 1 dose, 02/09/19 at 1220, 2 mL, If preference is to further dilute for IV administration: First draw up patient-specific dose, then dilute to 10 mL with 0.9% sodium chloride., potassium chloride (KLOR-CON M20) CR tablet Given 02/14/2019 9:43 AM CDT 40 mEq 40 mEq 40 mEq, Oral, One time, 1 dose, 02/14/19 at 1000, Tablet may be broken in half, but should not be crushed or chewed. Tablet may be dissolved in 4 oz of water., potassium phosphate 15 mmol in dextrose 5% Given 02/12/2019 12:31 PM CDT 15 mmol 250 mL 15 mmol, IV, One time, 1 dose, Yennifer 02/12/19 at 1015, 250 mL, *15 mmol of kphos contains 22 meq of potassium. Maximum rate 10 meq/hr of potassium (6.8 mmol/hr) if patient is not on telemetry, and 20 meq/hr if patient is on telemetry (13.6 mmol/hr), please choose duration accordingly., potassium phosphate 30 mmol in dextrose 5% Given 02/11/2019 10:33 AM CDT 30 mmol 500 mL 30 mmol, IV, One time, 1 dose, [facility] 02/11/19 at 1005, 500 mL, *15 mmol of kphos contains 22 meq of potassium. Maximum rate 10 meq/hr of potassium (6.8 mmol/hr) if patient is not on telemetry, and 20 meq/hr if patient is on telemetry (13.6 mmol/hr), please choose duration accordingly., sodium chloride 0.9% (bolus) IV solution Given 02/09/2019 7:57 PM CDT 1, 000 mL 1,000 mL 1,000 mL, IV, Bolus, 1 dose, [facility] 02/09/19 at 2000, 1,000 mL documented in this encounter
[2019-02-17] MEDS ORDERED: Sodium Chloride 0.9% 10 ML Syringe FLUSH PRN (20:47)
[2019-02-17] MEDS: Furosemide 40 MG/4 ML VIAL IVPUSH SCH (22:16)
[2019-02-18] MEDS: Furosemide 40 MG/4 ML VIAL IVPUSH SCH ×3 (06:54→22:02)
[2019-02-18] MEDS: Apixaban 2.5 MG Tab PO SCH (07:17)
[2019-02-18] MEDS: Multivitamin Tab PO SCH (07:17)
[2019-02-18] MEDS: Cholecalciferol (Vitamin D3) 1,000 Unit Tab PO SCH (07:17)
[2019-02-18] MEDS: Doxazosin 2 MG Tab PO SCH (07:17)
[2019-02-18] MEDS: Midodrine 5 MG Tab PO SCH ×2 (07:18→17:20)
[2019-02-18] MEDS: Magnesium Oxide 400 MG Tab PO SCH (07:18)
[2019-02-18] MEDS: Potassium Chloride 20 MEQ Tab.ER PO SCH ×3 (07:18→17:21)
[2019-02-18] MEDS: Cyanocobalamin (Vitamin B12) 1,000 MCG Tab PO SCH (07:18)
[2019-02-18] MEDS: Calcium Carbonate/Vitamin D3 625 MG-125 Unit Tab PO SCH ×3 (07:19→17:21)
[2019-02-18] MEDS: Acetaminophen 500 MG Tab PO PRN (22:30)
[2019-02-19] MEDS: Furosemide 40 MG/4 ML VIAL IVPUSH SCH ×3 (05:59→20:11)
[2019-02-19 07:55] LABS: CHLORIDE,CL 108 mmol/L (98-107); SODIUM,NA 142 mmol/L (136-145)
[2019-02-19] MEDS: Midodrine 5 MG Tab PO SCH ×2 (08:38→17:34)
[2019-02-19] MEDS: Apixaban 2.5 MG Tab PO SCH (08:39)
[2019-02-19] MEDS: Magnesium Oxide 400 MG Tab PO SCH (08:39)
[2019-02-19] MEDS: Calcium Carbonate/Vitamin D3 625 MG-125 Unit Tab PO SCH ×3 (08:40→17:35)
[2019-02-19] MEDS: Doxazosin 2 MG Tab PO SCH (08:40)
[2019-02-19] MEDS: Cyanocobalamin (Vitamin B12) 1,000 MCG Tab PO SCH (08:40)
[2019-02-19] MEDS: Multivitamin Tab PO SCH (08:42)
[2019-02-19] MEDS: Potassium Chloride 20 MEQ Tab.ER PO SCH ×3 (08:42→17:35)
[2019-02-19] MEDS: Cholecalciferol (Vitamin D3) 1,000 Unit Tab PO SCH (08:42)
[2019-02-19] MEDS ORDERED: Sodium Chloride 0.9% 10 ML Syringe FLUSH PRN (09:57)
[2019-02-19] MEDS: Simethicone 80 MG Tab.Chew PO PRN (13:26)
[2019-02-19] MEDS: Sodium Chloride 0.9% 10 ML Syringe FLUSH SCH ×2 (13:57→20:11)
[2019-02-19] MEDS: Acetaminophen 500 MG Tab PO PRN (22:10)
[2019-02-20] MEDS: Sodium Chloride 0.9% 10 ML Syringe FLUSH SCH ×3 (06:01→21:11)
[2019-02-20] MEDS: Furosemide 40 MG/4 ML VIAL IVPUSH SCH ×2 (06:01→12:24)
[2019-02-20] MEDS: Midodrine 5 MG Tab PO SCH ×2 (07:28→18:00)
[2019-02-20] MEDS: Doxazosin 2 MG Tab PO SCH (07:29)
[2019-02-20] MEDS: Apixaban 2.5 MG Tab PO SCH (07:30)
[2019-02-20] MEDS: Potassium Chloride 20 MEQ Tab.ER PO SCH ×3 (07:30→18:01)
[2019-02-20] MEDS: Magnesium Oxide 400 MG Tab PO SCH (07:31)
[2019-02-20] MEDS: Calcium Carbonate/Vitamin D3 625 MG-125 Unit Tab PO SCH ×3 (07:32→18:01)
[2019-02-20] MEDS: Cyanocobalamin (Vitamin B12) 1,000 MCG Tab PO SCH (07:32)
[2019-02-20] MEDS: Multivitamin Tab PO SCH (07:32)
[2019-02-20] MEDS: Cholecalciferol (Vitamin D3) 1,000 Unit Tab PO SCH (07:33)
[2019-02-20] MEDS: CAPECITABINE 500 MG PO SCH (20:14)
[2019-02-20] MEDS: CAPECITABINE 150 MG PO SCH (20:14)
[2019-02-21] MEDS: Sodium Chloride 0.9% 10 ML Syringe FLUSH SCH (04:14)
[2019-02-21] MEDS: Potassium Chloride 20 MEQ Tab.ER PO SCH ×3 (08:33→17:11)
[2019-02-21] MEDS: Calcium Carbonate/Vitamin D3 625 MG-125 Unit Tab PO SCH ×3 (08:34→17:11)
[2019-02-21] MEDS: Multivitamin Tab PO SCH (08:34)
[2019-02-21] MEDS: Magnesium Oxide 400 MG Tab PO SCH (08:34)
[2019-02-21] MEDS: Cyanocobalamin (Vitamin B12) 1,000 MCG Tab PO SCH (08:35)
[2019-02-21] MEDS: Cholecalciferol (Vitamin D3) 1,000 Unit Tab PO SCH (08:36)
[2019-02-21] MEDS: Apixaban 2.5 MG Tab PO SCH (08:36)
[2019-02-21] MEDS: Doxazosin 2 MG Tab PO SCH (08:36)
[2019-02-21] MEDS: Furosemide 40 MG/4 ML VIAL IVPUSH SCH ×2 (08:38→12:04)
[2019-02-21] MEDS: Midodrine 5 MG Tab PO SCH ×2 (08:51→17:11)
[2019-02-21] MEDS: CAPECITABINE 500 MG PO SCH (09:37)
[2019-02-21] MEDS: CAPECITABINE 150 MG PO SCH (09:37)
[2019-02-21] MEDS: Furosemide 40 MG Tab PO SCH (12:38)
--- NOTE | 2019-02-21 13:17 | PCM.SN ---
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
[2019-02-21] MEDS: Acetaminophen 500 MG Tab PO PRN (22:06)
[2019-02-22] MEDS: Midodrine 5 MG Tab PO SCH ×2 (07:48→17:52)
[2019-02-22] MEDS: Doxazosin 2 MG Tab PO SCH (07:54)
[2019-02-22] MEDS: Apixaban 2.5 MG Tab PO SCH (07:55)
[2019-02-22] MEDS: Potassium Chloride 20 MEQ Tab.ER PO SCH ×3 (07:55→17:52)
[2019-02-22] MEDS: Magnesium Oxide 400 MG Tab PO SCH (07:56)
[2019-02-22] MEDS: Furosemide 40 MG Tab PO SCH ×2 (07:56→11:58)
[2019-02-22] MEDS: Multivitamin Tab PO SCH (07:57)
[2019-02-22] MEDS: Calcium Carbonate/Vitamin D3 625 MG-125 Unit Tab PO SCH ×3 (07:57→17:51)
[2019-02-22] MEDS: Cyanocobalamin (Vitamin B12) 1,000 MCG Tab PO SCH (07:57)
[2019-02-22] MEDS: Cholecalciferol (Vitamin D3) 1,000 Unit Tab PO SCH (07:58)
[2019-02-22] MEDS: Acetaminophen 500 MG Tab PO PRN (16:31)
[2019-02-23] MEDS: Acetaminophen 500 MG Tab PO PRN ×3 (00:02→20:42)
[2019-02-23] MEDS: Doxazosin 2 MG Tab PO SCH (08:40)
[2019-02-23] MEDS: Calcium Carbonate/Vitamin D3 625 MG-125 Unit Tab PO SCH ×3 (08:40→17:33)
[2019-02-23] MEDS: Midodrine 5 MG Tab PO SCH ×2 (08:40→17:31)
[2019-02-23] MEDS: Multivitamin Tab PO SCH (08:40)
[2019-02-23] MEDS: Cyanocobalamin (Vitamin B12) 1,000 MCG Tab PO SCH (08:41)
[2019-02-23] MEDS: Apixaban 2.5 MG Tab PO SCH (08:42)
[2019-02-23] MEDS: Furosemide 40 MG Tab PO SCH ×2 (08:43→12:04)
[2019-02-23] MEDS: Potassium Chloride 20 MEQ Tab.ER PO SCH ×3 (08:43→17:33)
[2019-02-23] MEDS: Magnesium Oxide 400 MG Tab PO SCH (08:44)
[2019-02-23] MEDS: Cholecalciferol (Vitamin D3) 1,000 Unit Tab PO SCH (08:44)
[2019-02-23] MEDS: CAPECITABINE 150 MG PO SCH ×2 (15:37→17:33)
[2019-02-23] MEDS: CAPECITABINE 500 MG PO SCH ×2 (15:37→17:33)
[2019-02-24] MEDS: Midodrine 5 MG Tab PO SCH ×2 (08:11→17:56)
[2019-02-24] MEDS: Apixaban 2.5 MG Tab PO SCH (08:12)
[2019-02-24] MEDS: Doxazosin 2 MG Tab PO SCH (08:12)
[2019-02-24] MEDS: Furosemide 40 MG Tab PO SCH ×2 (08:13→11:33)
[2019-02-24] MEDS: Potassium Chloride 20 MEQ Tab.ER PO SCH ×3 (08:13→17:57)
[2019-02-24] MEDS: Magnesium Oxide 400 MG Tab PO SCH (08:14)
[2019-02-24] MEDS: Cyanocobalamin (Vitamin B12) 1,000 MCG Tab PO SCH (08:15)
[2019-02-24] MEDS: Calcium Carbonate/Vitamin D3 625 MG-125 Unit Tab PO SCH ×3 (08:15→17:58)
[2019-02-24] MEDS: Multivitamin Tab PO SCH (08:15)
[2019-02-24] MEDS: Cholecalciferol (Vitamin D3) 1,000 Unit Tab PO SCH (08:16)
[2019-02-24] MEDS: CAPECITABINE 500 MG PO SCH ×2 (08:17→17:57)
[2019-02-24] MEDS: CAPECITABINE 150 MG PO SCH ×2 (08:17→17:58)
[2019-02-25] MEDS: Acetaminophen 500 MG Tab PO PRN ×3 (03:29→19:13)
[2019-02-25] MEDS: Midodrine 5 MG Tab PO SCH ×2 (08:17→17:26)
[2019-02-25] MEDS: Apixaban 2.5 MG Tab PO SCH (08:18)
[2019-02-25] MEDS: Doxazosin 2 MG Tab PO SCH (08:18)
[2019-02-25] MEDS: Furosemide 40 MG Tab PO SCH ×2 (08:19→11:30)
[2019-02-25] MEDS: Potassium Chloride 20 MEQ Tab.ER PO SCH ×3 (08:19→17:26)
[2019-02-25] MEDS: Magnesium Oxide 400 MG Tab PO SCH (08:19)
[2019-02-25] MEDS: CAPECITABINE 150 MG PO SCH ×2 (08:21→17:27)
[2019-02-25] MEDS: CAPECITABINE 500 MG PO SCH ×2 (08:21→17:27)
[2019-02-25] MEDS: Calcium Carbonate/Vitamin D3 625 MG-125 Unit Tab PO SCH ×3 (08:22→17:28)
[2019-02-25] MEDS: Multivitamin Tab PO SCH (08:22)
[2019-02-25] MEDS: Cyanocobalamin (Vitamin B12) 1,000 MCG Tab PO SCH (08:22)
[2019-02-25] MEDS: Cholecalciferol (Vitamin D3) 1,000 Unit Tab PO SCH (08:23)
[2019-02-25] MEDS: Loperamide 2 MG Tab PO PRN ×2 (13:47→21:46)
[2019-02-25] MEDS: Simethicone 80 MG Tab.Chew PO PRN (21:46)
[2019-02-26] MEDS: CAPECITABINE 150 MG PO SCH ×2 (08:13→17:56)
[2019-02-26] MEDS: CAPECITABINE 500 MG PO SCH ×2 (08:14→17:55)
[2019-02-26] MEDS: Midodrine 5 MG Tab PO SCH ×2 (08:16→17:52)
[2019-02-26] MEDS: Potassium Chloride 20 MEQ Tab.ER PO SCH ×3 (08:16→17:53)
[2019-02-26] MEDS: Apixaban 2.5 MG Tab PO SCH (08:17)
[2019-02-26] MEDS: Furosemide 40 MG Tab PO SCH ×2 (08:18→12:23)
[2019-02-26] MEDS: Doxazosin 2 MG Tab PO SCH (08:19)
[2019-02-26] MEDS: Magnesium Oxide 400 MG Tab PO SCH (08:20)
[2019-02-26] MEDS: Cyanocobalamin (Vitamin B12) 1,000 MCG Tab PO SCH (08:22)
[2019-02-26] MEDS: Calcium Carbonate/Vitamin D3 625 MG-125 Unit Tab PO SCH ×3 (08:22→17:56)
[2019-02-26] MEDS: Multivitamin Tab PO SCH (08:22)
[2019-02-26] MEDS: Cholecalciferol (Vitamin D3) 1,000 Unit Tab PO SCH (08:23)
[2019-02-26] MEDS: Acetaminophen 500 MG Tab PO PRN (14:41)
[2019-02-26] MEDS: Loperamide 2 MG Tab PO PRN (17:58)
[2019-02-27] MEDS: Midodrine 5 MG Tab PO SCH (08:03)
[2019-02-27] MEDS: Potassium Chloride 20 MEQ Tab.ER PO SCH ×2 (08:04→12:04)
[2019-02-27] MEDS: Doxazosin 2 MG Tab PO SCH (08:05)
[2019-02-27] MEDS: Furosemide 40 MG Tab PO SCH ×2 (08:05→12:05)
[2019-02-27] MEDS: Magnesium Oxide 400 MG Tab PO SCH (08:08)
[2019-02-27] MEDS: Apixaban 2.5 MG Tab PO SCH (08:08)
[2019-02-27] MEDS: Cyanocobalamin (Vitamin B12) 1,000 MCG Tab PO SCH (08:09)
[2019-02-27] MEDS: Multivitamin Tab PO SCH (08:09)
[2019-02-27] MEDS: Calcium Carbonate/Vitamin D3 625 MG-125 Unit Tab PO SCH ×2 (08:09→12:05)
[2019-02-27] MEDS: Cholecalciferol (Vitamin D3) 1,000 Unit Tab PO SCH (08:10)
[2019-02-27] MEDS: CAPECITABINE 150 MG PO SCH (08:11)
[2019-02-27] MEDS: Acetaminophen 500 MG Tab PO PRN (08:11)
[2019-02-27] MEDS: CAPECITABINE 500 MG PO SCH (08:12)
--- NOTE | 2019-02-27 11:42 | PCM.DCSUM1 ---
Discharge Summary - Hospital Course Free Text/Narrative:: Patient is a 73-year-old with known history of breast cancer stage IV with metastases to the bone and liver patient was admitted to swing bed and at this time will be discharged home for palliative care patient has a pleurocentesis which they drained about 4 times week and a intraperitoneal catheter which did drain when necessary at this time patient is not 100% with plan of discharge but understands that this is what is going to happen she would like palliative home care if available for assistance she does have some family resources available to her. Diagnosis: Stroke: No - Discharge Data Discharge Date: 02/27/19 Discharge Disposition: DC/Tfer to Hospice - Home 50 Condition: Poor - Patient Summary/Data Consults: Consultations 02/15/19 16:44 Consult to Case Management/Catholic Priest [CONS] Routine OT Evaluation and Treatment [CONS] Routine PT Evaluation and Treatment [CONS] Routine Consult palliative care [facility] Consult physical therapy in [place] for possible compression dressing for lymphedema Hospital Course: Patient was admitted to swing bed at this time patient is in stable and is ready for discharge with assistance of palliative care and home health - Patient Instructions Diet: Regular Diet as Tolerated Driving: Do Not Drive Showering/Bathing: May Shower Notify Provider of: Fever, Increased Pain, Swelling and Redness, Drainage, Nausea and/or Vomiting - Discharge Plan *PRESCRIPTION DRUG MONITORING PROGRAM REVIEWED*: No *COPY OF PRESCRIPTION DRUG MONITORING REPORT IN PATIENT SANDY: No Home Medications: Home Meds Potassium Chloride 20 meq PO QAM 01/24/18 [History] Lactase [Lactaid] 3,000 unit PO ASDIRECTED PRN 01/19/19 [History] Calcium Carbonate/Vitamin D3 [Calcium 500 + Vit D Caplet] 1 tab PO TID 02/08/19 [History] Cyanocobalamin (Vitamin B-12) [Vitamin B-12] 5,000 mcg PO QAM 02/08/19 [History] Doxazosin Mesylate [Cardura] 2 mg PO QAM 02/08/19 [History] Furosemide [Lasix] 40 mg PO BID 02/08/19 [History] Magnesium Oxide 250 mg PO QAM 02/08/19 [History] Midodrine 2.5 mg PO BID 02/08/19 [History] Multivitamins [Tab-A-Tran] 1 tab PO QAM 02/08/19 [History] Prochlorperazine Maleate [Compazine] 10 mg PO QID PRN 02/08/19 [History] Sennosides/Docusate Sodium [Senna-S] 2 tab PO [id number] 02/08/19 [History] Simethicone 160 mg PO Q4H PRN 02/08/19 [History] Acetaminophen 500 mg PO Q6HR PRN 02/15/19 [History] Apixaban [Eliquis] 2.5 mg PO DAILY 02/15/19 [History] Cholecalciferol (Vitamin D3) [Vitamin D3] 1,000 unit PO DAILY 02/15/19 [History] - Discharge Summary/Plan Comment DC Time >30 min.: No Discharge Summary/Plan Comment: Patient admitted because of general weakness at this time physical therapy and occupational therapy have have gotten her to the best she could be for therefore we will discharge her home to palliative care - General Info Date of Service: 02/27/19 Functional Status: Reports: Pain Controlled, Tolerating Diet - Review of Systems General: Reports: Weakness HEENT: Reports: No Symptoms Pulmonary: Reports: Shortness of Breath (Location) Cardiovascular: Reports: No Symptoms Gastrointestinal: Reports: No Symptoms Genitourinary: Reports: Other (Family in place) Musculoskeletal: Reports: No Symptoms Skin: Reports: No Symptoms Neurological: Reports: No Symptoms Psychiatric: Reports: Depression - Patient Data Vitals - Most Recent: Last Vital Signs Temp 98.3 F 02/26/19 20:00 Pulse 82 02/27/19 08:00 Resp 16 02/27/19 08:00 BP 119/73 02/27/19 08:05 Pulse Ox 98 02/27/19 08:00 Weight - Most Recent: 143 lb 3.2 oz I&O - Last 24 hours: Intake & Output 02/26/19 02/27/19 02/27/19 22:59 06:59 14:59 Intake Total 261 537 9488 Output Total 500 Balance 360 -200 1800 Med Orders - Current: Current Medications Acetaminophen (Tylenol Extra Strength) 500 mg PO Q6HR PRN PRN Reason: Pain Last Admin: 02/27/19 08:11 Dose: 500 mg Apixaban (Eliquis) 2.5 mg PO DAILY SHANTHI Last Admin: 02/27/19 08:08 Dose: 2.5 mg Calcium Carbonate (Oystcal-D 625 Mg-125 Units) 1 tab PO TID [facility] Last Admin: 02/27/19 08:09 Dose: 1 tab Cholecalciferol (Vitamin D3) 1,000 units PO DAILY [facility] Last Admin: 02/27/19 08:10 Dose: 1,000 units Cyanocobalamin (Vitamin B12) 5,000 mcg PO DAILY [facility] Last Admin: 02/27/19 08:09 Dose: 5,000 mcg Doxazosin Mesylate (Cardura) 2 mg PO QAM [facility] Last Admin: 02/27/19 08:05 Dose: 2 mg Furosemide (Lasix) 40 mg PO BID@0800,1200 [facility] Last Admin: 02/27/19 08:05 Dose: 40 mg Loperamide HCl (Imodium Ad) 2 mg PO Q4H PRN PRN Reason: Diarrhea Last Admin: 02/26/19 17:58 Dose: 2 mg Magnesium Oxide (Magnesium Oxide) 200 mg PO DAILY [facility] Last Admin: 02/27/19 08:08 Dose: 200 mg Midodrine (Midodrine) 2.5 mg PO BIDAC [facility] Last Admin: 02/27/19 08:03 Dose: 2.5 mg Multivitamins/Minerals/Vitamin C (Tab-A-Tran) 1 tab PO QAM [facility] Last Admin: 02/27/19 08:09 Dose: 1 tab Lactase Enzyme (Chewable Tabs) 1 unit PO ASDIRECTED PRN PRN Reason: Extra Lactose in Diet Capecitabine 500 Mg (Own Med) 3 each PO BID [facility] Stop: 03/09/19 18:30 Last Admin: 02/27/19 08:12 Dose: 3 each Capecitabine 150 Mg (Own Med) 2 each PO BID [facility] Stop: 03/09/19 18:30 Last Admin: 02/27/19 08:11 Dose: 2 each Potassium Chloride (Klor-Con M20) 20 meq PO TID [facility] Last Admin: 02/27/19 08:04 Dose: 20 meq Prochlorperazine Maleate (Compazine) 10 mg PO QID PRN PRN Reason: NAUSEA/VOMITING Simethicone (Simethicone) 160 mg PO Q4H PRN PRN Reason: Dyspepsia Last Admin: 02/25/19 21:46 Dose: 160 mg Discontinued Medications Furosemide (Lasix) 40 mg PO BIDDIURETIC [facility] Last Admin: 02/17/19 12:00 Dose: 40 mg Furosemide (Lasix) 40 mg IVPUSH Q8H [facility] Last Admin: 02/20/19 12:24 Dose: Not Given Furosemide (Lasix) 40 mg IVPUSH BID@0800,1200 [facility] Last Admin: 02/21/19 12:04 Dose: Not Given Heparin Sodium (Porcine) (Heparin Lock Flush 100 Units/Ml) 500 units FLUSH ASDIRECTED PRN PRN Reason: Other Last Admin: 02/19/19 07:34 Dose: 500 units Heparin Sodium (Porcine) (Heparin Lock Flush 100 Units/Ml) 500 units FLUSH Q8H [facility] Last Admin: 02/21/19 12:04 Dose: Not Given Potassium Chloride (Klor-Con M20) 20 meq PO ONETIME ONE Stop: 02/15/19 17:29 Last Admin: 02/15/19 17:55 Dose: 20 meq Potassium Chloride (Klor-Con M20) 20 meq PO DAILY [facility] Last Admin: 02/17/19 08:12 Dose: 20 meq Senna/Docusate Sodium (Senna Plus) 2 tab PO BID [facility] Last Admin: 02/21/19 08:34 Dose: Not Given Sodium Chloride (Saline Flush) 10 ml FLUSH ASDIRECTED PRN PRN Reason: Keep Vein Open Last Admin: 02/18/19 13:11 Dose: 10 ml Sodium Chloride (Saline Flush) 10 ml FLUSH Q8H [facility] Last Admin: 02/21/19 04:14 Dose: Not Given Sodium Chloride (Saline Flush) 10 ml FLUSH ASDIRECTED PRN PRN Reason: Keep line open - Exam Quality Assessment: Reports: DVT Prophylaxis General: Reports: Alert, Oriented HEENT: Reports: Pupils Equal, Pupils Reactive, EOMI, Mucous Membr. Moist/[place] Neck: Reports: Supple Lungs: Reports: Decreased Breath Sounds, Crackles Cardiovascular: Reports: Regular Rate, Regular Rhythm GI/Abdominal Exam: Normal Bowel Sounds, Soft, Non-Tender, No Abnormal Bruit, No Mass, Pelvis Stable, Distended, Tender, Hepatomegaly. No: No Organomegaly, No Distention (Female) Exam: Deferred Back Exam: Reports: Normal Inspection, Full Range of Motion Extremities: Normal Inspection, Normal Range of Motion, Non-Tender, No Pedal Edema, Normal Capillary Refill Skin: Reports: Warm, Dry, Intact Wound/Incisions: Reports: Healing Well Neurological: Reports: No New Focal Deficit Psy/Mental Status: Reports: Alert, Normal Affect, Normal Mood
== END 2019-02-27 14:30 | disposition hospice, home (50) | DRG 948 ==
LOC: LL.MS 14:45 → LL.SWG 02-21 13:43
PROVIDERS: ADMIT Emergency Medicine; ATTEND Family Medicine
DX: R53.1 Weakness (principal); E87.1 Hypo-osmolality and hyponatremia; I42.9 Cardiomyopathy, unspecified; R18.8 Other ascites; J90 Pleural effusion, not elsewhere classified; R64 Cachexia; J44.1 Chronic obstructive pulmonary disease with (acute) exacerbation; C79.51 Secondary malignant neoplasm of bone; C78.7 Secondary malignant neoplasm of liver and intrahepatic bile duct; E88.09 Other disorders of plasma-protein metabolism, not elsewhere classified; Z51.5 Encounter for palliative care; R33.9 Retention of urine, unspecified; J30.9 Allergic rhinitis, unspecified; H54.7 Unspecified visual loss; C50.919 Malignant neoplasm of unspecified site of unspecified female breast; I11.0 Hypertensive heart disease with heart failure; I50.9 Heart failure, unspecified; G89.29 Other chronic pain; M54.9 Dorsalgia, unspecified; E03.9 Hypothyroidism, unspecified; M81.0 Age-related osteoporosis without current pathological fracture; E53.8 Deficiency of other specified B group vitamins; E87.6 Hypokalemia; E83.51 Hypocalcemia; M15.0 Primary generalized (osteo)arthritis; K21.9 Gastro-esophageal reflux disease without esophagitis; D64.81 Anemia due to antineoplastic chemotherapy; T45.1X5A Adverse effect of antineoplastic and immunosuppressive drugs, initial encounter; Z88.2 Allergy status to sulfonamides; Z88.8 Allergy status to other drugs, medicaments and biological substances; Z88.6 Allergy status to analgesic agent; Z88.1 Allergy status to other antibiotic agents; Z98.51 Tubal ligation status; Z86.718 Personal history of other venous thrombosis and embolism; Z91.012 Allergy to eggs; Z79.899 Other long term (current) drug therapy
CPT/HCPCS: 36415; 71046; 80053; 83735; 85025; 97110-GP; 97116-GP; 97140-GO; 97162-GP; 97165-GO; 97530-GP; A9270-GY; J1642; J1940

== ENCOUNTER 2021-01-25 17:32 | Emergency (ER) | payer MEDICARE, OTHER, MEDICAID ==
[2021-01-25 18:16] LABS: CHLORIDE,CL 107 mmol/L (98-107); SODIUM,NA 142 mmol/L (136-145)
[2021-01-25] MEDS: Apixaban 5 MG Tab PO ONE (18:58)
[2021-01-25] MEDS: Apixaban 5 MG Tab ONE (18:59)
--- NOTE | 2021-01-25 21:25 | EDM.PDOC ---
ED HPI GENERAL MEDICAL PROBLEM - General Chief Complaint: General Stated Complaint: swelling R arm Time Seen by Provider: 01/25/21 17:40 Source of Information: Reports: Patient History Limitations: Reports: No Limitations - History of Present Illness INITIAL COMMENTS - FREE TEXT/NARRATIVE: Pt. presents to ER with complaints of increased size of R arm. Pt. has a history of metastatic breast CA, history of previous R subclavian DVT, history of L upper extremity lymphedema. Pt. was started on eliquis in 2017 for the DVT. She had repeat duplex US of the extremity in 2019 which showed clearance of the clot. Eliquis was subsequently discontinued. Pt. states that she wears a compression sleeve for the extremity. She denies any duskiness to the extremity. No numbness/tingling. Denies any pallor. Pt. denies any chest pain, shortness of breath, fever, chills, redness to the extremity, or hemoptysis. Pt. denies any calf pain, LE pallor, paresthesia, abdominal pain, nausea, or vomiting. Onset Date: 01/24/21 Location: Reports: Upper Extremity, Right - Related Data Allergies Allergy/AdvReac Type Severity Reaction Status Date / Time aspirin Allergy Tachycardia Verified 01/25/21 17:41 ciprofloxacin [From Cipro] Allergy Other Verified 01/25/21 17:41 diphenhydramine Allergy Other Verified 01/25/21 17:41 [From Benadryl] egg Allergy Other Verified 01/25/21 17:41 Influenza Virus Vaccines Allergy Other Verified 01/25/21 17:41 lactose Allergy Abdominal Verified 01/25/21 17:41 Cramps montelukast [From Singulair] Allergy Other Verified 01/25/21 17:41 nitrofurantoin Allergy Rash Verified 01/25/21 17:41 [From Macrodantin] Penicillins Allergy Rash Verified 01/25/21 17:41 pseudoephedrine Allergy Other Verified 01/25/21 17:41 Sulfa (Sulfonamide Allergy Rash Verified 01/25/21 17:41 Antibiotics) tetracycline Allergy Rash Verified 01/25/21 17:41 Home Meds: Home Meds Lactase [Lactaid] 3,000 unit PO ASDIRECTED PRN 01/19/19 [History] Calcium Carbonate/Vitamin D3 [Calcium 500-Vit D3 125 Caplet] 1 tab PO TID 02/08/19 [History] Cyanocobalamin (Vitamin B-12) [Vitamin B-12] 5,000 mcg PO QAM 02/08/19 [History] Doxazosin Mesylate [Cardura] 2 mg PO QAM 02/08/19 [History] Magnesium Oxide 250 mg PO QAM 02/08/19 [History] Midodrine 2.5 mg PO BID 02/08/19 [History] Multivitamins [Tab-A-Tran] 1 tab PO QAM 02/08/19 [History] Acetaminophen 500 mg PO Q6HR PRN 02/15/19 [History] Cholecalciferol (Vitamin D3) [Vitamin D3] 1,000 unit PO DAILY 02/15/19 [History] Furosemide [Lasix] 40 mg PO BID@0800,1200 tablet 02/27/19 [Rx] Loperamide [Imodium AD] 2 mg PO Q4H PRN tablet 02/27/19 [Rx] Non-Formulary Medication [NF Drug] 2 each PO BID each 02/27/19 [Rx] Potassium Chloride [Klor-Con M20] 20 meq PO TID tab.er 02/27/19 [Rx] Prochlorperazine [Compazine] 10 mg PO QID PRN tablet 02/27/19 [Rx] Simethicone 160 mg PO Q4H PRN tab.chew 02/27/19 [Rx] Biotin 5 mg PO DAILY 01/25/21 [History] Hydrocodone/Acetaminophen [Hydrocodone-Acetamin 5-325 mg] 1 each PO Q6H PRN 01/25/21 [History] Letrozole 2.5 mg PO DAILY 01/25/21 [History] Past Medical History HEENT History: Reports: Allergic Rhinitis, Impaired Vision, Sinusitis, Other (See Below) Other HEENT History: Patient wears glasses. Cardiovascular History: Reports: Cardiomyopathy, Heart Failure, Hypertension, Other (See Below) Other Cardiovascular History: Recurrent CHF including pleural effusions with cardiomegaly by chest x-rays. Chronic d-dimer elevation initially diagnosed on 08/22/18 with negative CTA of the chest as below. echocardiogram performed on Feb 04 2019 Respiratory History: Reports: Asthma, Bronchitis, Recurrent, COPD, Pneumonia, Recurrent, Other (See Below) Other Respiratory History: Asthma since childhood. COPD. Gastrointestinal History: Reports: Cholelithiasis, Hiatal Hernia, Other (See Below) Other Gastrointestinal History: Nonsymptomatic cholelithiasis. Genitourinary History: Reports: Retention, Urinary, UTI, Recurrent, Other (See Below) Other Genitourinary History: History of acute urinary retention in 2009 however nonproblematic at this time. Benign bilateral renal cysts. SOAP BOILER History: Reports: Dysfunctional Uterine Bleeding, Fibroids, Polycystic Ovaries, , Prolapsed Uterus Other SOAP BOILER History: Menopause at age 51. Full term without complications during pregnancies or deliveries. Recurrent nonspecific right-sided lymphatic mastitis with bilateral fibrocystic breast disease. Musculoskeletal History: Reports: Arthritis, Back Pain, Chronic, Fracture, Neck Pain, Chronic, Osteoarthritis, Osteoporosis, Other (See Below) Other Musculoskeletal History: History of non-diagnosed silent right ankle fracture at about age 17. Osteoporosis by x-rays. Kyphosis. Neurological History: Reports: Concussion, Head Trauma, Other (See Below) Other Neuro History: Concussion at age 19. Psychiatric History: Reports: None Endocrine/Metabolic History: Reports: Hypothyroidism, Osteopenia, Osteoporosis, Other (See Below) Other Endocrine/Metabolic History: Hypokalemia. Hyponatremia. Mild borderline hypothyroidism and goiter diagnosed on 08/22/18. Hematologic History: Reports: Anemia, B12 Deficiency, Other (See Below) Other Hematologic History: Severe pernicious anemia. History of leukopenia. Immunologic History: Reports: Immunosuppression, Other (See Below) Other Immunologic History: Breast cancer as below. Oncologic (Cancer) History: Reports: Breast, Metastatic, Other (See Below) Other Oncologic History: Right-sided Allie grade 2 estrogen and progesterone positive invasive ductal breast cancer including metastases to the liver and bone initially diagnosed on 08/23/18. Dermatologic History: Reports: None, Eczema - Infectious Disease History Infectious Disease History: Reports: Chicken Pox, Measles, Mumps - Past Surgical History Head Surgeries/Procedures: Reports: None HEENT Surgical History: Reports: Adenoidectomy, Oral Surgery, Tonsillectomy, Other (See Below) Other HEENT Surgeries/Procedures: [place] teeth extraction 4 at age 33 with multiple additional teeth extractions. Tonsillectomy and adenoidectomy at age 7. Cardiovascular Surgical History: Reports: None Respiratory Surgical History: Reports: Thoracentesis Other Respiratory Surgeries/Procedures: Right-sided thoracentesis on 08/23/18 secondary to large right pleural effusion likely secondary to her breast cancer. GI Surgical History: Reports: Colonoscopy, EGD, Hernia, Inguinal, Other (See Below) Other GI Surgeries/Procedures: Umbilical hernia repair at about age 7. Colonoscopy on 11/11/08. EGD on 10/14/08. Female Surgical History: Reports: Breast Biopsy, Tubal Ligation, Other (See Below) Other Female Surgeries/Procedures: Bilateral tubal ligation at age 34. Endocrine Surgical History: Reports: None Neurological Surgical History: Reports: None Musculoskeletal Surgical History: Reports: None Oncologic Surgical History: Reports: None Other Oncologic Surgeries/Procedures: As above. Dermatological Surgical History: Reports: Skin Biopsy, Other (See Below) - Past Imaging History Past Imaging History: Reports: CAT Scan, Ultrasound Social & Family History - Family History HEENT: Reports: None Cardiac: Reports: Arrhythmia, CAD, Hypertension, AZ, Other (See Below) Other Cardiac Family History: Paternal grandmother with open heart surgery at age 42 for unknown reason with history of coronary artery disease and recurrent MIs with fatal AZ at age 70. Father with fatal unknown type of arrhythmia at age 72 with previous history of AZ in his early 70s. Hypertension in paternal grandmother. 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 GI: Reports: None : Reports: None OBGYN: Reports: Dysfunctional uterine bleeding, Other (See Below) Other OBGYN Family History: Mother with hysterectomy for probable dysfunctional uterine bleeding Musculoskeletal: Reports: Arthritis, Gout, Other (See Below) Other Musculoskeletal Family History: Maternal uncle with gout Neurological: Reports: CVA, Other (See Below) Other Neurological Family History: Maternal grandmother with recurrent CVAs in her 90s eventually fatal at age 96. Psychiatric: Reports: Anxiety, Depression, Other (See Below) Other Psychiatric Family History: Mother with anxiety depression disorder. Endocrine/Metabolic: Reports: Diabetes, type II, IDDM, Other (See Below) Other Endocrine/Metabolic Family History: Mother, maternal grandmother, and paternal grandmother with IDDM. Hematologic: Reports: None Immunologic: Reports: None Dermatologic: Reports: Psoriasis, Other (See Below) Other Dermatologic Family History: Father with psoriasis. Oncologic: Reports: Skin, Other (See Below) Other Oncologic Family History: Father with recurrent basal cell carcinomas. 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[employer]) ED ROS GENERAL - Review of Systems Review Of Systems: See Below Constitutional: Reports: No Symptoms HEENT: Reports: No Symptoms Respiratory: Reports: No Symptoms Cardiovascular: Reports: No Symptoms Endocrine: Reports: No Symptoms GI/Abdominal: Reports: No Symptoms : Reports: No Symptoms Musculoskeletal: Reports: Other (See HPI) Skin: Reports: No Symptoms Neurological: Reports: No Symptoms Psychiatric: Reports: No Symptoms Hematologic/Lymphatic: Reports: Other (See HPI) Immunologic: Reports: No Symptoms ED EXAM, GENERAL - Physical Exam Exam: See Below Exam Limited By: No Limitations General Appearance: Alert, WD/WN, No Apparent Distress Respiratory/Chest: No Respiratory Distress, Lungs Clear, Normal Breath Sounds, No Accessory Muscle Use, Chest Non-Tender Cardiovascular: Normal Peripheral Pulses, Regular Rate, Rhythm, No Edema, No JVD, No Murmur Extremities: Other ( increased size according to patient. No significant pallor. No duskiness. CMS intact. ROM is normal.) Neurological: Alert, Oriented, CN II-XII Intact, Normal Cognition Skin Exam: Warm, Dry, Intact, Normal Color, No Rash, Pallor (mild pallor). No: Mottled Course - Vital Signs Last Recorded V/S: Last Vital Signs Temp 36.9 C 01/25/21 17:34 Pulse 71 01/25/21 18:39 Resp 16 01/25/21 18:39 BP 144/85 H 01/25/21 18:39 Pulse Ox 99 01/25/21 18:39 - Orders/Labs/Meds Labs: Laboratory Tests 01/25/21 01/25/21 01/25/21 Range/Units 17:56 17:56 17:56 WBC 4.8 (4.0-10.2) K/uL RBC 4.46 (3.77-5.09) M/uL Hgb 13.2 D (11.7-15.5) g/dL Hct 40.3 (34.0-46.0) % MCV 90.4 D (84.0-98.0) fL MCH 29.6 (28.2-33.3) pg MCHC 32.8 (31.7-36.0) g/dL RDW 13.5 (11.2-14.1) % Plt Count 165 (150-350) K/uL Neut % (Auto) 66.9 (45.0-80.0) % Lymph % (Auto) 22.4 (10.0-50.0) % [place] % (Auto) 8.2 (2.0-14.0) % Eos % (Auto) 2.3 (0.0-5.0) % Baso % (Auto) 0.2 (0.0-2.0) % Neut # (Auto) 3.20 (1.40-7.00) K/uL Lymph # (Auto) 1.07 (0.50-3.50) K/uL [place] # (Auto) 0.39 (0.00-1.00) K/uL Eos # (Auto) 0.11 (0.00-0.50) K/uL Baso # (Auto) 0.01 (0.00-0.20) K/uL PT 9.9 (9.5-12.0) SEC INR 1.0 D-Dimer, Quantitative 891 H (0-400) ng/mL Sodium (136-145) mmol/L Potassium (3.5-5.1) mmol/L Chloride (98-107) mmol/L Carbon Dioxide (21.0-32.0) mmol/L BUN (7-18) mg/dL Creatinine (0.51-1.17) mg/dL Est Cr Clr Drug Dosing mL/min Estimated GFR (MDRD) mL/min Glucose (70-99) mg/dL Calcium (8.5-10.1) mg/dL Total Bilirubin (0.2-1.0) mg/dL AST (15-37) U/L ALT (12-78) U/L Alkaline Phosphatase (46-116) IU/L C-Reactive Protein (<=0.9) mg/dL Total Protein (6.4-8.2) g/dL Albumin (3.4-5.0) g/dL 01/25/21 Range/Units 17:56 WBC (4.0-10.2) K/uL RBC (3.77-5.09) M/uL Hgb (11.7-15.5) g/dL Hct (34.0-46.0) % MCV (84.0-98.0) fL MCH (28.2-33.3) pg MCHC (31.7-36.0) g/dL RDW (11.2-14.1) % Plt Count (150-350) K/uL Neut % (Auto) (45.0-80.0) % Lymph % (Auto) (10.0-50.0) % [place] % (Auto) (2.0-14.0) % Eos % (Auto) (0.0-5.0) % Baso % (Auto) (0.0-2.0) % Neut # (Auto) (1.40-7.00) K/uL Lymph # (Auto) (0.50-3.50) K/uL [place] # (Auto) (0.00-1.00) K/uL Eos # (Auto) (0.00-0.50) K/uL Baso # (Auto) (0.00-0.20) K/uL PT (9.5-12.0) SEC INR D-Dimer, Quantitative (0-400) ng/mL Sodium 142 (136-145) mmol/L Potassium 3.9 (3.5-5.1) mmol/L Chloride 107 (98-107) mmol/L Carbon Dioxide 26.3 (21.0-32.0) mmol/L BUN 13 (7-18) mg/dL Creatinine 0.75 (0.51-1.17) mg/dL Est Cr Clr Drug Dosing 61.61 mL/min Estimated GFR (MDRD) > 60 mL/min Glucose 104 H (70-99) mg/dL Calcium 8.5 (8.5-10.1) mg/dL Total Bilirubin 0.4 (0.2-1.0) mg/dL AST 17 (15-37) U/L ALT 26 (12-78) U/L Alkaline Phosphatase 62 (46-116) IU/L C-Reactive Protein 0.4 (<=0.9) mg/dL Total Protein 7.0 (6.4-8.2) g/dL Albumin 3.5 (3.4-5.0) g/dL Meds: Medications Discontinued Medications Generic Name Dose Route Start Last Admin Trade Name Constantino PRN Reason Stop Dose Admin Apixaban 10 mg 01/25/21 18:44 01/25/21 18:58 Apixaban 5 Mg Tab PO 01/25/21 18:45 10 mg ONETIME ONE Administration Apixaban 10 mg 01/26/21 08:00 Apixaban 5 Mg Tab PO 01/26/21 08:01 ONETIME ONE Apixaban Confirm 01/25/21 18:55 01/25/21 18:59 Apixaban 5 Mg Tab Administered 01/25/21 18:56 10 mg Dose Administration 10 mg .ROUTE .STK-MED ONE Departure - Departure Time of Disposition: 19:00 Disposition: Home, Self-Care 01 Clinical Impression: Arm swelling, Positive D dimer - Discharge Information Instructions: Deep Vein Thrombosis Referrals: Donya Cardenas NP [Primary Care Provider] - Forms: ED Department Discharge Additional Instructions: I will be in contact with you regarding your ultrasound results tomorrow. I will also contact your pharmacy. Eliquis 5mg 2 tabs tomorrow AM. I will call in a prescription for more medication tomorrow if needed. Recheck in clinic in 7-10 days Sepsis Event Note (ED) - Evaluation Sepsis Screening Result: No Definite Risk - Focused Exam Vital Signs: Vital Signs Temp Pulse Resp BP Pulse Ox 01/25/21 18:39 71 16 144/85 H 99 01/25/21 18:05 166/84 H 01/25/21 18:00 77 18 164/95 H 100 01/25/21 17:56 74 16 162/91 H 99 01/25/21 17:34 36.9 C 88 16 162/100 H 99 - Assessment/Plan Plan: will be in contact with you regarding your ultrasound results tomorrow. I will also contact your pharmacy. Eliquis 5mg 2 tabs tomorrow AM. I will call in a prescription for more medication tomorrow if needed. Recheck in clinic in 7-10 days
[2021-01-26] MEDS ORDERED: Apixaban 5 MG Tab PO ONE (08:00)
== END 2021-01-25 19:05 | disposition home or self-care (01) ==
LOC: LL.ED 17:32
DX: R22.31 Localized swelling, mass and lump, right upper limb (principal); R79.1 Abnormal coagulation profile; I11.0 Hypertensive heart disease with heart failure; I50.9 Heart failure, unspecified; J44.9 Chronic obstructive pulmonary disease, unspecified; Z88.6 Allergy status to analgesic agent; Z88.1 Allergy status to other antibiotic agents; Z88.8 Allergy status to other drugs, medicaments and biological substances; Z91.013 Allergy to seafood; Z88.7 Allergy status to serum and vaccine; Z88.0 Allergy status to penicillin; Z88.2 Allergy status to sulfonamides; Z79.899 Other long term (current) drug therapy; Z79.01 Long term (current) use of anticoagulants; Z91.012 Allergy to eggs
CPT/HCPCS: 36415; 80053; 85025; 85379; 85610; 86140; 99283; A9270-GY

== ENCOUNTER 2021-02-21 06:00 | Inpatient (IN) | payer MEDICARE, MEDICAID, OTHER ==
[2021-02-21] MEDS ORDERED: Ondansetron 4 MG/2 ML SDV IVPUSH ONE (06:11)
[2021-02-21] MEDS ORDERED: Sodium Chloride 0.9% 1,000 ML IV SCH (06:15)
[2021-02-21] MEDS ORDERED: Potassium Chloride 20 MEQ Tab.ER PO ONE (07:21)
[2021-02-21] MEDS ORDERED: Promethazine 25 MG/ML SDV IM ONE (07:24)
[2021-02-21] MEDS ORDERED: NS + KCl 20mEq/L 1,000 ML IV SCH (07:30)
--- NOTE | 2021-02-21 08:03 | EDM.PDOC ---
ED HPI GENERAL MEDICAL PROBLEM - General Chief Complaint: Gastrointestinal Problem Stated Complaint: NAUSEA, VOMITING Time Seen by Provider: 02/21/21 06:29 Source of Information: Reports: Patient History Limitations: Reports: No Limitations - History of Present Illness INITIAL COMMENTS - FREE TEXT/NARRATIVE: Patient comes to ER after experiencing approximately 8 hours of nausea /emesis/diarrhea. Dry heaves most recently. Avoids contact with other people/has not been exposed to illness. Made liver and onions for dinner last night. Denies bloody emesis/stool. Low grade temp. Denies HEENT changes/MENDES/URI complaints. No cough or new SOB/respiratory changes. No UTI complaints. Has metastatic breast cancer and receives an infusion every 3 weeks and has had good control overall of the cancer per self report. No med changes. Right Back Pain Score (Numeric/FACES): 3 - Related Data Allergies Allergy/AdvReac Type Severity Reaction Status Date / Time aspirin Allergy Tachycardia Verified 02/21/21 06:11 ciprofloxacin [From Cipro] Allergy Other Verified 02/21/21 06:11 diphenhydramine Allergy Other Verified 02/21/21 06:11 [From Benadryl] egg Allergy Other Verified 02/21/21 06:11 Influenza Virus Vaccines Allergy Other Verified 02/21/21 06:11 lactose Allergy Abdominal Verified 02/21/21 06:11 Cramps montelukast [From Singulair] Allergy Other Verified 02/21/21 06:11 nitrofurantoin Allergy Rash Verified 02/21/21 06:11 [From Macrodantin] Penicillins Allergy Rash Verified 02/21/21 06:11 pseudoephedrine Allergy Other Verified 02/21/21 06:11 Sulfa (Sulfonamide Allergy Rash Verified 02/21/21 06:11 Antibiotics) tetracycline Allergy Rash Verified 02/21/21 06:11 Home Meds: Home Meds Lactase [Lactaid] 3,000 unit PO ASDIRECTED PRN 01/19/19 [History] Calcium Carbonate/Vitamin D3 [Calcium 500-Vit D3 125 Caplet] 1 tab PO TID 02/08/19 [History] Cyanocobalamin (Vitamin B-12) [Vitamin B-12] 5,000 mcg PO QAM 02/08/19 [History] Doxazosin Mesylate [Cardura] 2 mg PO QAM 02/08/19 [History] Magnesium Oxide 250 mg PO QAM 02/08/19 [History] Midodrine 2.5 mg PO BID 02/08/19 [History] Multivitamins [Tab-A-Tran] 1 tab PO QAM 02/08/19 [History] Cholecalciferol (Vitamin D3) [Vitamin D3] 1,000 unit PO DAILY 02/15/19 [History] Furosemide [Lasix] 40 mg PO BID@0800,1200 tablet 02/27/19 [Rx] Loperamide [Imodium AD] 2 mg PO Q4H PRN tablet 02/27/19 [Rx] Non-Formulary Medication [NF Drug] 2 each PO BID each 02/27/19 [Rx] Potassium Chloride [Klor-Con M20] 20 meq PO TID tab.er 02/27/19 [Rx] Simethicone 160 mg PO Q4H PRN tab.chew 02/27/19 [Rx] Biotin 5 mg PO DAILY 01/25/21 [History] Hydrocodone/Acetaminophen [Hydrocodone-Acetamin 5-325 mg] 1 each PO BEDTIME PRN 01/25/21 [History] Letrozole 2.5 mg PO DAILY 01/25/21 [History] Past Medical History HEENT History: Reports: Allergic Rhinitis, Impaired Vision, Sinusitis, Other (See Below) Other HEENT History: Patient wears glasses. Cardiovascular History: Reports: Cardiomyopathy, Heart Failure, Hypertension, Other (See Below) Other Cardiovascular History: Recurrent CHF including pleural effusions with cardiomegaly by chest x-rays. Chronic d-dimer elevation initially diagnosed on 08/22/18 with negative CTA of the chest as below. echocardiogram performed on Feb 04 2019 Respiratory History: Reports: Asthma, Bronchitis, Recurrent, COPD, Pneumonia, Recurrent, Other (See Below) Other Respiratory History: Asthma since childhood. COPD. Gastrointestinal History: Reports: Cholelithiasis, Hiatal Hernia, Other (See Below) Other Gastrointestinal History: Nonsymptomatic cholelithiasis. Genitourinary History: Reports: Retention, Urinary, UTI, Recurrent, Other (See Below) Other Genitourinary History: History of acute urinary retention in 2008 however nonproblematic at this time. Benign bilateral renal cysts. EARLY CHILDHOOD SPECIALIST History: Reports: Dysfunctional Uterine Bleeding, Fibroids, Polycystic Ovaries, , Prolapsed Uterus Other EARLY CHILDHOOD SPECIALIST History: Menopause at age 51. Full term without complications during pregnancies or deliveries. Recurrent nonspecific right-sided lymphatic mastitis with bilateral fibrocystic breast disease. Musculoskeletal History: Reports: Arthritis, Back Pain, Chronic, Fracture, Neck Pain, Chronic, Osteoarthritis, Osteoporosis, Other (See Below) Other Musculoskeletal History: History of non-diagnosed silent right ankle fracture at about age 17. Osteoporosis by x-rays. Kyphosis. Neurological History: Reports: Concussion, Head Trauma, Other (See Below) Other Neuro History: Concussion at age 19. Psychiatric History: Reports: None Endocrine/Metabolic History: Reports: Hypothyroidism, Osteopenia, Osteoporosis, Other (See Below) Other Endocrine/Metabolic History: Hypokalemia. Hyponatremia. Mild borderline hypothyroidism and goiter diagnosed on 08/22/18. Hematologic History: Reports: Anemia, B12 Deficiency, Other (See Below) Other Hematologic History: Severe pernicious anemia. History of leukopenia. Immunologic History: Reports: Immunosuppression, Other (See Below) Other Immunologic History: Breast cancer as below. Oncologic (Cancer) History: Reports: Breast, Metastatic, Other (See Below) Other Oncologic History: Right-sided Allie grade 2 estrogen and progesterone positive invasive ductal breast cancer including metastases to the liver and bone initially diagnosed on 08/23/18. Dermatologic History: Reports: None, Eczema - Infectious Disease History Infectious Disease History: Reports: Chicken Pox, Measles, Mumps - Past Surgical History Head Surgeries/Procedures: Reports: None HEENT Surgical History: Reports: Adenoidectomy, Oral Surgery, Tonsillectomy, Other (See Below) Other HEENT Surgeries/Procedures: [place] teeth extraction 4 at age 33 with multiple additional teeth extractions. Tonsillectomy and adenoidectomy at age 7. Cardiovascular Surgical History: Reports: None Respiratory Surgical History: Reports: Thoracentesis Other Respiratory Surgeries/Procedures: Right-sided thoracentesis on 08/23/18 secondary to large right pleural effusion likely secondary to her breast cancer. GI Surgical History: Reports: Colonoscopy, EGD, Hernia, Inguinal, Other (See Below) Other GI Surgeries/Procedures: Umbilical hernia repair at about age 7. Colonoscopy on 11/11/08. EGD on 10/14/08. Female Surgical History: Reports: Breast Biopsy, Tubal Ligation, Other (See Below) Other Female Surgeries/Procedures: Bilateral tubal ligation at age 34. Endocrine Surgical History: Reports: None Neurological Surgical History: Reports: None Musculoskeletal Surgical History: Reports: None Oncologic Surgical History: Reports: None Other Oncologic Surgeries/Procedures: As above. Dermatological Surgical History: Reports: Skin Biopsy, Other (See Below) - Past Imaging History Past Imaging History: Reports: CAT Scan, Ultrasound Social & Family History - Family History HEENT: Reports: None Cardiac: Reports: Arrhythmia, CAD, Hypertension, LA, Other (See Below) Other Cardiac Family History: Paternal grandmother with open heart surgery at age 42 for unknown reason with history of coronary artery disease and recurrent MIs with fatal LA at age 70. Father with fatal unknown type of arrhythmia at age 72 with previous history of LA in his early 70s. Hypertension in paternal grandmother. Respiratory: Reports: COPD, Other (See Below) Other Respiratory Family Hisory: Paternal grandfather with COPD with history of working as a [employer] and also tobacco use. GI: Reports: None : Reports: None OBGYN: Reports: Dysfunctional uterine bleeding, Other (See Below) Other OBGYN Family History: Mother with hysterectomy for probable dysfunctional uterine bleeding Musculoskeletal: Reports: Arthritis, Gout, Other (See Below) Other Musculoskeletal Family History: Maternal uncle with gout Neurological: Reports: CVA, Other (See Below) Other Neurological Family History: Maternal grandmother with recurrent CVAs in her 90s eventually fatal at age 96. Psychiatric: Reports: Anxiety, Depression, Other (See Below) Other Psychiatric Family History: Mother with anxiety depression disorder. Endocrine/Metabolic: Reports: Diabetes, type II, IDDM, Other (See Below) Other Endocrine/Metabolic Family History: Mother, maternal grandmother, and paternal grandmother with IDDM. Hematologic: Reports: None Immunologic: Reports: None Dermatologic: Reports: Psoriasis, Other (See Below) Other Dermatologic Family History: Father with psoriasis. Oncologic: Reports: Skin, Other (See Below) Other Oncologic Family History: Father with recurrent basal cell carcinomas. 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 ED EXAM, GENERAL - Physical Exam Exam: See Below Exam Limited By: No Limitations General Appearance: Alert, WD/WN, Mild Distress Eye Exam: Bilateral Eye: EOMI, PERRL Ears: Hearing Grossly Normal Nose: No: Nasal Deformity, Nasal Swelling, Nasal Drainage Throat/Mouth: Normal Lips, Normal Voice, No Airway Compromise Head: Atraumatic, Normocephalic Neck: Supple, Non-Tender, Full Range of Motion Respiratory/Chest: No Respiratory Distress, Lungs Clear, Normal Breath Sounds, No Accessory Muscle Use, Chest Non-Tender Cardiovascular: Regular Rate, Rhythm, No Murmur GI/Abdominal: Soft, Non-Tender, No Distention, Abnormal Bowel Sounds (diminished throughout) (Female) Exam: Deferred Rectal (Female) Exam: Deferred Back Exam: No: CVA Tenderness (L), CVA Tenderness (R), Paraspinal Tenderness, Vertebral Tenderness Extremities: Normal Capillary Refill, Other (some leg and hand cramps noted during evaluation. Has right sided arm lymphedema. ) Neurological: Alert, Oriented, CN II-XII Intact, Normal Cognition, No Motor/Sensory Deficits Psychiatric: Normal Affect, Normal Mood Skin Exam: Dry, Intact, Normal Color #1 Interpretation EKG Date: 02/21/21 Time: 08:16 Rhythm: NSR Rate (Beats/Min): 75 Newell: LAD-Left Newell Deviation P-Wave: Present QRS: Normal ST-T: Normal QT: Normal Course - Vital Signs Last Recorded V/S: Last Vital Signs Temp 37.1 C 02/21/21 07:55 Pulse 79 02/21/21 07:55 Resp 18 02/21/21 07:55 BP 138/65 02/21/21 07:55 Pulse Ox 97 02/21/21 07:55 - Orders/Labs/Meds Orders: Active Orders 24 hr Category Date Time Status Implanted Port Access [RC] STAT Care 02/21/21 06:12 Active Abdomen Series w Chest 1V [CR] Stat Exams 02/21/21 06:29 Taken CMP [COMPREHENSIVE METABOLIC PN,CMP] [CHEM] Stat Lab 02/21/21 06:25 Results MAGNESIUM [CHEM] Stat Lab 02/21/21 06:25 Results TROPONIN I [CHEM] Stat Lab 02/21/21 06:25 Results Sodium Chloride 0.9% [Normal Saline] 1,000 ml Med 02/21/21 06:15 Active IV ASDIRECTED Medication Orders Sodium Chloride (Normal Saline) 1,000 mls @ 999 mls/hr IV ASDIRECTED SHANTHI Last Admin: 02/21/21 06:27 Dose: 999 mls/hr Documented by: PATRICIA Potassium Chloride/Sodium Chloride (Normal Saline With 20 Meq Kcl) 1,000 mls @ 100 mls/hr IV ASDIRECTED SHANTHI Last Admin: 02/21/21 07:57 Dose: 100 mls/hr Documented by: BINU Ketorolac Tromethamine (Ketorolac 15 Mg/Ml Sdv) 15 mg IVPUSH Q6H PRN PRN Reason: Pain Stop: 02/26/21 09:01 Non-Formulary Medication (Biotin [Biotin]) 5 mg PO DAILY SHANTHI Non-Formulary Medication (Calcium Carbonate/Vitamin D3 [Calcium 500-Vit D3 125 Caplet]) 1 tab PO TID SHANTHI Non-Formulary Medication (Cholecalciferol (Vitamin D3) [Vitamin D3]) 1,000 unit PO DAILY SHANTHI Non-Formulary Medication (Cyanocobalamin (Vitamin B-12) [Vitamin B-12]) 5,000 mcg PO QAM SHANTHI Non-Formulary Medication (Doxazosin Mesylate [Cardura]) 2 mg PO QAM SHANTHI Non-Formulary Medication (Furosemide [Lasix]) 40 mg PO BID@0800,1200 SHANTHI Non-Formulary Medication (Hydrocodone/Acetaminophen [Hydrocodone-Acetamin 5-325 Mg]) 1 each PO BEDTIME PRN PRN Reason: Pain Non-Formulary Medication (Lactase [Lactaid]) 3,000 unit PO ASDIRECTED PRN PRN Reason: Extra Lactose in Diet Non-Formulary Medication (Letrozole) 2.5 mg PO DAILY SHANTHI Non-Formulary Medication (Loperamide [Imodium Ad]) 2 mg PO Q4H PRN PRN Reason: Diarrhea Non-Formulary Medication (Magnesium Oxide [Magnesium Oxide]) 250 mg PO QAM SHANTHI Non-Formulary Medication (Midodrine [Midodrine]) 2.5 mg PO BID SHANTHI Non-Formulary Medication (Non-Formulary Medication [Nf Drug]) 2 each PO BID SHANTHI Non-Formulary Medication (Multivitamins [Tab-A-Tran]) 1 tab PO QAM SHANTHI Simethicone (Simethicone 80 Mg Tab.Chew) 160 mg PO Q4H PRN PRN Reason: Dyspepsia Labs: Laboratory Tests 02/21/21 02/21/21 Range/Units 06:25 06:25 WBC 11.2 H (4.0-10.2) K/uL RBC 4.15 (3.77-5.09) M/uL Hgb 12.2 (11.7-15.5) g/dL Hct 36.6 (34.0-46.0) % MCV 88.2 (84.0-98.0) fL MCH 29.4 (28.2-33.3) pg MCHC 33.3 (31.7-36.0) g/dL RDW 12.9 (11.2-14.1) % Plt Count 171 (150-350) K/uL Neut % (Auto) 89.0 H (45.0-80.0) % Lymph % (Auto) 5.9 L (10.0-50.0) % Collin % (Auto) 4.8 (2.0-14.0) % Eos % (Auto) 0.1 (0.0-5.0) % Baso % (Auto) 0.2 (0.0-2.0) % Neut # (Auto) 9.99 H (1.40-7.00) K/uL Lymph # (Auto) 0.66 (0.50-3.50) K/uL Collin # (Auto) 0.54 (0.00-1.00) K/uL Eos # (Auto) 0.01 (0.00-0.50) K/uL Baso # (Auto) 0.02 (0.00-0.20) K/uL Sodium 143 (136-145) mmol/L Potassium 2.3 L* D (3.5-5.1) mmol/L Chloride 112 H (98-107) mmol/L Carbon Dioxide 18.7 L (21.0-32.0) mmol/L BUN 11 (7-18) mg/dL Glucose 109 H (70-99) mg/dL Calcium 5.9 L* D (8.5-10.1) mg/dL Magnesium 1.2 L (1.8-2.4) mg/dL Total Bilirubin 0.5 (0.2-1.0) mg/dL AST 14 L (15-37) U/L ALT 14 (12-78) U/L Alkaline Phosphatase 44 L (46-116) IU/L Troponin I 0.006 (0.000-0.056) ng/mL Total Protein 4.4 L (6.4-8.2) g/dL Albumin 2.1 L (3.4-5.0) g/dL Meds: Medications Generic Name Dose Route Start Last Admin Trade Name Freq PRN Reason Stop Dose Admin Sodium Chloride 1,000 mls @ 999 mls/hr 02/21/21 06:15 02/21/21 06:27 Normal Saline IV 999 mls/hr ASDIRECTED SHANTHI Administration Potassium Chloride/Sodium Chloride 1,000 mls @ 100 mls/hr 02/21/21 07:30 02/21/21 07:57 Normal Saline With 20 Meq Kcl IV 100 mls/hr ASDIRECTED SHANTHI Administration Ketorolac Tromethamine 15 mg 02/21/21 09:00 Ketorolac 15 Mg/Ml Sdv IVPUSH 02/26/21 09:01 Q6H PRN Pain Non-Formulary Medication 5 mg 02/22/21 08:00 Biotin [Biotin] PO DAILY SHANTHI Non-Formulary Medication 1 tab 02/21/21 12:00 Calcium Carbonate/Vitamin D3 [Calcium 500-Vit D3 125 Caplet] PO TID SHANTHI Non-Formulary Medication 1,000 unit 02/22/21 08:00 Cholecalciferol (Vitamin D3) [Vitamin D3] PO DAILY SHANTHI Non-Formulary Medication 5,000 mcg 02/22/21 08:00 Cyanocobalamin (Vitamin B-12) [Vitamin B-12] PO QAM SHANTHI Non-Formulary Medication 2 mg 02/22/21 08:00 Doxazosin Mesylate [Cardura] PO QAM SHANTHI Non-Formulary Medication 40 mg 02/21/21 12:00 Furosemide [Lasix] PO BID@0800,1200 SHANTHI Non-Formulary Medication 1 each 02/21/21 08:46 Hydrocodone/Acetaminophen [Hydrocodone-Acetamin 5-325 Mg] PO BEDTIME PRN Pain Non-Formulary Medication 3,000 unit 02/21/21 08:46 Lactase [Lactaid] PO ASDIRECTED PRN Extra Lactose in Diet Non-Formulary Medication 2.5 mg 02/22/21 08:00 Letrozole PO DAILY SHANTHI Non-Formulary Medication 2 mg 02/21/21 08:46 Loperamide [Imodium Ad] PO Q4H PRN Diarrhea Non-Formulary Medication 250 mg 02/22/21 08:00 Magnesium Oxide [Magnesium Oxide] PO QAM [facility] Non-Formulary Medication 2.5 mg 02/21/21 18:00 Midodrine [Midodrine] PO BID [facility] Non-Formulary Medication 2 each 02/21/21 18:00 Non-Formulary Medication [Nf Drug] PO BID [facility] Non-Formulary Medication 1 tab 02/22/21 08:00 Multivitamins [Tab-A-Tran] PO QAM [facility] Simethicone 160 mg 02/21/21 08:54 Simethicone 80 Mg Tab.Chew PO Q4H PRN Dyspepsia Discontinued Medications Generic Name Dose Route Start Last Admin Trade Name Freq PRN Reason Stop Dose Admin Magnesium Sulfate/Dextrose 1 100 mls @ 100 mls/hr 02/21/21 07:49 02/21/21 08:31 gm/ Premix IV 02/21/21 08:48 100 mls/hr ONETIME ONE Administration Ondansetron HCl 4 mg 02/21/21 06:11 02/21/21 06:27 Ondansetron 4 Mg/2 Ml Sdv IVPUSH 02/21/21 06:12 4 mg ONETIME ONE Administration Potassium Chloride 20 meq 02/21/21 07:21 02/21/21 07:38 Potassium Chloride 20 Meq Tab.Er PO 02/21/21 07:22 Not Given ONETIME ONE Promethazine HCl 25 mg 02/21/21 07:24 02/21/21 07:58 Promethazine 25 Mg/Ml Sdv IM 02/21/21 07:25 25 mg ONETIME ONE Administration - Re-Assessments/Exams Free Text/Narrative Re-Assessment/Exam: 02/21/21 09:08 Patient received immediate relief from Zofran. Xrays did not show any signs of obstruction. Appear to be some scarring right lower lung area/pending radiology review. Initial labs showed significantly low Mag/K/Calcium. These were repeated and numbers improved. Suspect cramping patient is experiencing is related to the low mag/dehydration. Plan is to admit observation for rehydration and Mag replacement. Departure - Departure Time of Disposition: 07:30 Disposition: Refer to Observation Condition: Good Clinical Impression: Vomiting and diarrhea, Hypomagnesemia - Discharge Information Sepsis Event Note (ED) - Evaluation Sepsis Screening Result: No Definite Risk - Focused Exam Vital Signs: Vital Signs Temp Pulse Resp BP Pulse Ox 02/21/21 06:03 36.9 C 72 18 133/72 98 - Problem List & Annotations (1) Vomiting and diarrhea SNOMED Code(s): 895398250 Code(s): R11.10 - VOMITING, UNSPECIFIED; R19.7 - DIARRHEA, UNSPECIFIED Status: Acute Priority: High Current Visit: Yes Onset Date: 02/20/21 Annotation/Comment:: Improved after Zofran. Admitted observation/receiving IV fluid replacement. (2) Hypomagnesemia SNOMED Code(s): 542504245 Code(s): E83.42 - HYPOMAGNESEMIA Status: Acute Priority: High Current Visit: Yes Annotation/Comment:: IV Mag replacement ordered. Suspect is contributing to patient's hand/leg cramping (3) Hypocalcemia SNOMED Code(s): 9654061 Code(s): E83.51 - HYPOCALCEMIA Status: Chronic Priority: Medium Current Visit: Yes Annotation/Comment:: Observe levels during stay (4) Hypothyroidism (acquired) SNOMED Code(s): 245667004 Code(s): E03.9 - HYPOTHYROIDISM, UNSPECIFIED Status: Chronic Priority: Low Current Visit: No Onset Date: 08/22/18 Annotation/Comment:: Reported to be stable at this time. (5) CHF (congestive heart failure) SNOMED Code(s): 39458391 Code(s): I50.9 - HEART FAILURE, UNSPECIFIED Status: Chronic Priority: Low Current Visit: No Onset Date: ~08/22/18 Annotation/Comment:: Currently stable, monitor for changes. Qualifiers: Heart failure type: unspecified Heart failure chronicity: chronic Qualified Code(s): I50.9 - Heart failure, unspecified (6) COPD (chronic obstructive pulmonary disease) SNOMED Code(s): 50986672 Code(s): J44.9 - CHRONIC OBSTRUCTIVE PULMONARY DISEASE, UNSPECIFIED Status: Chronic Priority: Low Current Visit: No Annotation/Comment:: Currently under therapy with no recent fever, bronchitic type symptoms, etc.. Stable per patient Qualifiers: COPD type: COPD with acute exacerbation Qualified Code(s): J44.1 - Chronic obstructive pulmonary disease with (acute) exacerbation (7) Hypertension SNOMED Code(s): 87075980 Code(s): I10 - ESSENTIAL (PRIMARY) HYPERTENSION Status: Chronic Priority: Medium Current Visit: No Annotation/Comment:: Blood pressures stable in the emergency room. Observe trends Qualifiers: Hypertension type: essential hypertension Qualified Code(s): I10 - Essential (primary) hypertension (8) Hypoalbuminemia SNOMED Code(s): 181002139 Code(s): E88.09 - [facility] DISORDERS OF PLASMA-PROTEIN METABOLISM, NEC Status: Chronic Priority: Medium Current Visit: Yes Onset Date: 08/22/18 Annotation/Comment:: Monitor levels during stay (9) Hypokalemia SNOMED Code(s): 24099363 Code(s): E87.6 - HYPOKALEMIA Status: Chronic Priority: Medium Current Visit: No Annotation/Comment:: Currently on potassium chloride supplementation with no hyperkalemia today. (10) Metastatic breast cancer SNOMED Code(s): 076690380, 173962445 Code(s): C50.919 - MALIGNANT NEOPLASM OF UNSP SITE OF UNSPECIFIED FEMALE BREAST Status: Chronic Priority: Low Current Visit: No Annotation/Comment:: Mets to liver/bone. Weakness/fatigue, cachexia. (11) Osteoarthritis SNOMED Code(s): 318080191 Code(s): M19.90 - UNSPECIFIED OSTEOARTHRITIS, UNSPECIFIED SITE Status: Chronic Priority: Low Current Visit: No Annotation/Comment:: Stable by history Qualifiers: Osteoarthritis location: multiple joints Osteoarthritis type: primary (12) Peptic reflux disease SNOMED Code(s): 709244647 Code(s): K21.9 - GASTRO-ESOPHAGEAL REFLUX DISEASE WITHOUT ESOPHAGITIS Status: Chronic Priority: Low Current Visit: No Annotation/Comment:: Stable by history with history of hiatal hernia as above. Note additional history of pernicious anemia. - Problem List Review Problem List Initiated/Reviewed/Updated: Yes - My Orders Last 24 Hours: My Active Orders 02/21/21 06:12 Implanted Port Access [RC] STAT 02/21/21 06:15 Sodium Chloride 0.9% [Normal Saline] 1,000 ml IV ASDIRECTED 02/21/21 06:25 CMP [COMPREHENSIVE METABOLIC PN,CMP] [CHEM] Stat MAGNESIUM [CHEM] Stat TROPONIN I [CHEM] Stat 02/21/21 06:29 Abdomen Series w Chest 1V [CR] Stat - Assessment/Plan Admission H&P: Please use this note as an admission H&P Last 24 Hours: My Active Orders 02/21/21 06:12 Implanted Port Access [RC] STAT 02/21/21 06:15 Sodium Chloride 0.9% [Normal Saline] 1,000 ml IV ASDIRECTED 02/21/21 06:25 CMP [COMPREHENSIVE METABOLIC PN,CMP] [CHEM] Stat MAGNESIUM [CHEM] Stat TROPONIN I [CHEM] Stat 02/21/21 06:29 Abdomen Series w Chest 1V [CR] Stat Assessment:: as above Plan: As above. Observe for changes over next 24 hours. IV fluids/Mag replacement. Recheck levels in AM. Anticipate probable discharge tomorrow if patient continues to improve.
[2021-02-21 08:48] LABS: SODIUM,NA 139 mmol/L (136-145)
[2021-02-21 08:49] LABS: CHLORIDE,CL 104 mmol/L (98-107)
[2021-02-21] MEDS: Ketorolac 15 MG/ML SDV IVPUSH PRN ×2 (09:21→17:24)
[2021-02-21] MEDS ORDERED: Ondansetron 4 MG/2 ML SDV IM ONE (09:30)
[2021-02-21] MEDS ORDERED: Acetaminophen/HYDROcodone 325-5 MG Tab PO PRN (10:11)
[2021-02-21] MEDS ORDERED: Ondansetron 4 MG/2 ML SDV IV ONE (10:30)
[2021-02-21] MEDS: Furosemide 40 MG Tab PO SCH (12:19)
[2021-02-21] MEDS: Calcium Carbonate/Vitamin D3 625 MG-125 Unit Tab PO SCH ×2 (12:28→17:17)
[2021-02-21] MEDS: Potassium Chloride 20 MEQ Tab.ER PO SCH ×2 (12:28→17:17)
[2021-02-21] MEDS: Midodrine 5 MG Tab PO SCH (17:17)
[2021-02-21] MEDS: Sodium Chloride 0.9% 1,000 ML IV SCH (17:56)
[2021-02-22] MEDS: Simethicone 80 MG Tab.Chew PO PRN ×2 (02:34→19:44)
[2021-02-22] MEDS: Loperamide 2 MG Tab PO PRN ×2 (06:58→23:02)
[2021-02-22] MEDS ORDERED: Non-Formulary Medication 1 Each (Magnesium Oxide [Magnesium Oxide] 250 MG Tablet) PO SCH (08:00)
[2021-02-22] MEDS ORDERED: LETROZOLE 2.5 MG PO SCH (08:00)
[2021-02-22] MEDS ORDERED: BIOTIN 5 MG PO SCH (08:00)
[2021-02-22 08:04] LABS: CHLORIDE,CL 107 mmol/L (98-107); SODIUM,NA 139 mmol/L (136-145)
[2021-02-22] MEDS: Calcium Carbonate/Vitamin D3 625 MG-125 Unit Tab PO SCH ×3 (08:13→17:10)
[2021-02-22] MEDS: Sodium Chloride 0.9% 1,000 ML IV SCH (08:13)
[2021-02-22] MEDS: Midodrine 5 MG Tab PO SCH ×2 (08:13→17:11)
[2021-02-22] MEDS: Cholecalciferol (Vitamin D3) 25 MCG Tab PO SCH (08:14)
[2021-02-22] MEDS: Cyanocobalamin (Vitamin B12) 1,000 MCG Tab PO SCH (08:14)
[2021-02-22] MEDS: Furosemide 40 MG Tab PO SCH ×2 (08:15→11:23)
[2021-02-22] MEDS: Doxazosin 2 MG Tab PO SCH (08:15)
[2021-02-22] MEDS: Multivitamin Tab PO SCH (08:15)
[2021-02-22] MEDS: Potassium Chloride 20 MEQ Tab.ER PO SCH ×3 (08:16→17:10)
--- NOTE | 2021-02-22 11:14 | PCM.PN ---
- General Info Date of Service: 02/22/21 Admission Dx/Problem (Free Text): 1. Abdominal pain 2. Nausea and vomiting 3. CHF Functional Status: Reports: Pain Controlled, Tolerating Diet, Ambulating, Urinating, New Symptoms (More weakness and dizziness ~10) - Review of Systems General: Reports: Fever (37.4 degrees yesterday.), Weakness, Fatigue. Denies: Malaise, Chills, Night Sweats HEENT: Reports: No Symptoms Pulmonary: Reports: No Symptoms. Denies: Shortness of Breath, Cough, Sputum, Hemoptysis, Wheezing Cardiovascular: Reports: Lightheadedness. Denies: Chest Pain, Palpitations, Dyspnea on Exertion, Orthopnea, PND, Edema Gastrointestinal: Reports: Other (1 loose stool yesterday evening but none today). Denies: Abdominal Pain, Constipation, Decreased Appetite, Diarrhea, Difficulty Swallowing, Flatus, Hematochezia, Melena, Nausea, Vomiting Genitourinary: Reports: No Symptoms. Denies: Dysuria, Frequency, Burning, Incontinence, Retention, Flank Pain Musculoskeletal: Reports: Back Pain (Chronic low back pain with right-sided sciatica). Denies: Neck Pain, Shoulder Pain, Arm Pain, Joint Pain, Joint Swelling Skin: Reports: No Symptoms. Denies: Diaphoresis, Bruising, Rash Neurological: Reports: Difficulty Walking (Secondary to chronic low back pain with current walker use), Weakness, Gait Disturbance. Denies: Confusion Psychiatric: Reports: No Symptoms. Denies: Agitation, Cravings, Hallucinations, Homicidal Ideation - Patient Data Vitals - Most Recent: Last Vital Signs Temp 37.2 C 02/22/21 06:00 Pulse 89 02/22/21 06:00 Resp 18 02/22/21 06:00 BP 141/73 H 02/22/21 08:15 Pulse Ox 98 02/22/21 06:00 Vital Signs - 24 hr 02/21/21 02/21/21 02/21/21 12:00 17:40 23:04 Temperature [ 36.9 C 37.1 C 37.4 C Oral] Pulse, 90 86 85 Peripheral [ Left Pulse Oximetry] Respiratory 18 16 18 Rate Blood Pressure Blood Pressure 109/57 L 125/69 110/51 L [Left Upper Arm ] O2 Sat by Pulse 96 96 95 Oximetry 02/22/21 02/22/21 06:00 08:15 Temperature [ 37.2 C Oral] Pulse, 89 Peripheral [ Left Pulse Oximetry] Respiratory 18 Rate Blood Pressure 141/73 H Blood Pressure 130/62 [Left Upper Arm ] O2 Sat by Pulse 98 Oximetry Weight - Most Recent: 75.115 kg I&O - Last 24 Hours: Intake & Output 02/21/21 02/22/21 02/22/21 22:59 06:59 14:59 Intake Total 60 1186 250 Output Total 130 400 500 Balance -70 786 -250 Imaging Impressions - Last 24 Hours: library monitor shows normal sinus rhythm in the 80s. Lab Results Last 24 Hours: Laboratory Results - last 24 hr 02/22/21 02/22/21 02/22/21 Range/Units 07:42 07:42 07:42 WBC 9.3 (4.0-10.2) K/uL RBC 3.63 L (3.77-5.09) M/uL Hgb 10.7 L D (11.7-15.5) g/dL Hct 33.3 L (34.0-46.0) % MCV 91.7 D (84.0-98.0) fL MCH 29.5 (28.2-33.3) pg MCHC 32.1 (31.7-36.0) g/dL RDW 13.3 (11.2-14.1) % Plt Count 147 L (150-350) K/uL Neut % (Auto) 81.9 H (45.0-80.0) % Lymph % (Auto) 8.3 L (10.0-50.0) % [place] % (Auto) 9.4 (2.0-14.0) % Eos % (Auto) 0.2 (0.0-5.0) % Baso % (Auto) 0.2 (0.0-2.0) % Neut # (Auto) 7.62 H (1.40-7.00) K/uL Lymph # (Auto) 0.77 (0.50-3.50) K/uL [place] # (Auto) 0.87 (0.00-1.00) K/uL Eos # (Auto) 0.02 (0.00-0.50) K/uL Baso # (Auto) 0.02 (0.00-0.20) K/uL Sodium 139 (136-145) mmol/L Potassium 3.8 (3.5-5.1) mmol/L Chloride 107 (98-107) mmol/L Carbon Dioxide 21.8 (21.0-32.0) mmol/L BUN 13 (7-18) mg/dL Creatinine 0.68 (0.51-1.17) mg/dL Est Cr Clr Drug Dosing 67.95 mL/min Estimated GFR (MDRD) > 60 mL/min Glucose 107 H (70-99) mg/dL Lactic Acid 0.5 (0.4-2.0) mmol/L Calcium 7.4 L (8.5-10.1) mg/dL Magnesium 2.2 (1.8-2.4) mg/dL Total Bilirubin 0.8 (0.2-1.0) mg/dL AST 17 (15-37) U/L ALT 20 (12-78) U/L Alkaline Phosphatase 54 (46-116) IU/L Total Protein 5.5 L (6.4-8.2) g/dL Albumin 2.5 L (3.4-5.0) g/dL Med Orders - Current: Current Medications Hydrocodone Bitart/Acetaminophen (Acetaminophen/Hydrocodone 325-5 Mg Tab) 1 tab PO BEDTIME PRN PRN Reason: Pain Calcium Carbonate (Calcium Carbonate/Vitamin D3 625 Mg-125 Unit Tab) 1 tab PO TID [facility] Last Admin: 02/22/21 08:13 Dose: 1 tab Documented by: Cholecalciferol (Cholecalciferol (Vitamin D3) 25 Mcg Tab) 25 mcg PO DAILY [facility] Last Admin: 02/22/21 08:14 Dose: 25 mcg Documented by: Cyanocobalamin (Cyanocobalamin (Vitamin B12) 1,000 Mcg Tab) 5,000 mcg PO QAM [facility] Last Admin: 02/22/21 08:14 Dose: 5,000 mcg Documented by: Doxazosin Mesylate (Doxazosin 2 Mg Tab) 2 mg PO QAM [facility] Last Admin: 02/22/21 08:15 Dose: 2 mg Documented by: Furosemide (Furosemide 40 Mg Tab) 40 mg PO BID@0800,1200 [facility] Last Admin: 02/22/21 08:15 Dose: 40 mg Documented by: Heparin Sodium (Porcine) (Heparin Sodium 100 Units/Ml 5 Ml Syringe) 500 units FLUSH ASDIRECTED PRN PRN Reason: post port use Sodium Chloride (Normal Saline) 1,000 mls @ 75 mls/hr IV ASDIRECTED [facility] Last Admin: 02/22/21 08:13 Dose: 75 mls/hr Documented by: Ketorolac Tromethamine (Ketorolac 15 Mg/Ml Sdv) 15 mg IVPUSH Q6H PRN PRN Reason: Pain Stop: 02/26/21 09:01 Last Admin: 02/21/21 17:24 Dose: 15 mg Documented by: Loperamide HCl (Loperamide 2 Mg Tab) 2 mg PO Q4H PRN PRN Reason: Diarrhea Last Admin: 02/22/21 06:58 Dose: 2 mg Documented by: Midodrine (Midodrine 5 Mg Tab) 2.5 mg PO BID [facility] Last Admin: 02/22/21 08:13 Dose: 2.5 mg Documented by: Multivitamins/Minerals/Vitamin C (Multivitamin Tab) 1 tab PO QAM [facility] Last Admin: 02/22/21 08:15 Dose: 1 tab Documented by: Non-Formulary Medication (Biotin [Biotin]) 5 mg PO DAILY [facility] Non-Formulary Medication (Lactase [Lactaid]) 3,000 unit PO ASDIRECTED PRN PRN Reason: Extra Lactose in Diet Non-Formulary Medication (Letrozole) 2.5 mg PO DAILY [facility] Non-Formulary Medication (Non-Formulary Medication [Nf Drug]) 2 each PO BID [facility] Potassium Chloride (Potassium Chloride 20 Meq Tab.Er) 20 meq PO TID [facility] Last Admin: 02/22/21 08:16 Dose: 20 meq Documented by: Simethicone (Simethicone 80 Mg Tab.Chew) 160 mg PO Q4H PRN PRN Reason: Dyspepsia Last Admin: 02/22/21 02:34 Dose: 160 mg Documented by: Discontinued Medications Sodium Chloride (Normal Saline) 1,000 mls @ 999 mls/hr IV ASDIRECTED [facility] Last Admin: 02/21/21 06:27 Dose: 999 mls/hr Documented by: Potassium Chloride/Sodium Chloride (Normal Saline With 20 Meq Kcl) 1,000 mls @ 100 mls/hr IV ASDIRECTED [facility] Last Admin: 02/21/21 07:57 Dose: 100 mls/hr Documented by: Magnesium Sulfate/Dextrose 1 (gm/ Premix) 100 mls @ 100 mls/hr IV ONETIME ONE Stop: 02/21/21 08:48 Last Admin: 02/21/21 08:31 Dose: 100 mls/hr Documented by: Magnesium Sulfate/Dextrose 1 (gm/ Premix) 100 mls @ 100 mls/hr IV ONETIME ONE Stop: 02/21/21 10:59 Last Admin: 02/21/21 10:28 Dose: 100 mls/hr Documented by: Non-Formulary Medication (Magnesium Oxide [Magnesium Oxide]) 250 mg PO QAM SHANTHI Ondansetron HCl (Ondansetron 4 Mg/2 Ml Sdv) 4 mg IVPUSH ONETIME ONE Stop: 02/21/21 06:12 Last Admin: 02/21/21 06:27 Dose: 4 mg Documented by: Ondansetron HCl (Ondansetron 4 Mg/2 Ml Sdv) 4 mg IM ONETIME ONE Stop: 02/21/21 09:31 Last Admin: 02/21/21 10:25 Dose: Not Given Documented by: Ondansetron HCl (Ondansetron 4 Mg/2 Ml Sdv) 4 mg IV ONETIME ONE Stop: 02/21/21 10:31 Last Admin: 02/21/21 10:28 Dose: 4 mg Documented by: Potassium Chloride (Potassium Chloride 20 Meq Tab.Er) 20 meq PO ONETIME ONE Stop: 02/21/21 07:22 Last Admin: 02/21/21 07:38 Dose: Not Given Documented by: Promethazine HCl (Promethazine 25 Mg/Ml Sdv) 25 mg IM ONETIME ONE Stop: 02/21/21 07:25 Last Admin: 02/21/21 07:58 Dose: 25 mg Documented by: - Exam Quality Assessment: Central Line/PICC, DVT Prophylaxis. No: Supplemental Oxygen, Urine Catheter Central Line Total Time: 1Days 2Hours General: Alert, Oriented, Cooperative, No Acute Distress HEENT: Pupils Equal, Pupils Reactive, EOMI, Mucous Membr. Moist/[place]. No: Scleral Icterus Neck: Supple, No JVD, No Thyromegaly. No: Lymphadenopathy Lungs: Clear to Auscultation, Normal Respiratory Effort Cardiovascular: Regular Rate, Regular Rhythm, Murmurs (Mild 1/6 JANELL of the aortic and mitral valves). No: Gallops, Rubs GI/Abdominal Exam: Normal Bowel Sounds, Soft, Non-Tender, No Organomegaly, No Distention, No Abnormal Bruit, No Mass. No: Guarding (Female) Exam: Deferred Back Exam: Decreased Range of Motion (Lumbar spinechronic), Paraspinal Tenderness (Right lumbar). No: CVA Tenderness (L), CVA Tenderness (R), Muscle Spasm Extremities: Normal Inspection, Normal Range of Motion, Non-Tender, No Pedal Edema, Normal Capillary Refill. No: Dianne's Sign Peripheral Pulses: 2+: Radial (L), Radial (R), Dorsalis Pedis (L), Dorsalis Pedis (R) Skin: Warm, Dry, Intact. No: Ecchymosis Neurological: No New Focal Deficit, Other (No clinical orthostasis) Psy/Mental Status: Anxious (Mild to moderate), Depressed (Borderline). No: Agitated, Hallucinations, Withdrawal Symptoms - Patient Data Lab Results Last 24 hrs: Laboratory Results - last 24 hr 02/22/21 02/22/21 02/22/21 Range/Units 07:42 07:42 07:42 WBC 9.3 (4.0-10.2) K/uL RBC 3.63 L (3.77-5.09) M/uL Hgb 10.7 L D (11.7-15.5) g/dL Hct 33.3 L (34.0-46.0) % MCV 91.7 D (84.0-98.0) fL MCH 29.5 (28.2-33.3) pg MCHC 32.1 (31.7-36.0) g/dL RDW 13.3 (11.2-14.1) % Plt Count 147 L (150-350) K/uL Neut % (Auto) 81.9 H (45.0-80.0) % Lymph % (Auto) 8.3 L (10.0-50.0) % [place] % (Auto) 9.4 (2.0-14.0) % Eos % (Auto) 0.2 (0.0-5.0) % Baso % (Auto) 0.2 (0.0-2.0) % Neut # (Auto) 7.62 H (1.40-7.00) K/uL Lymph # (Auto) 0.77 (0.50-3.50) K/uL [place] # (Auto) 0.87 (0.00-1.00) K/uL Eos # (Auto) 0.02 (0.00-0.50) K/uL Baso # (Auto) 0.02 (0.00-0.20) K/uL Sodium 139 (136-145) mmol/L Potassium 3.8 (3.5-5.1) mmol/L Chloride 107 (98-107) mmol/L Carbon Dioxide 21.8 (21.0-32.0) mmol/L BUN 13 (7-18) mg/dL Creatinine 0.68 (0.51-1.17) mg/dL Est Cr Clr Drug Dosing 67.95 mL/min Estimated GFR (MDRD) > 60 mL/min Glucose 107 H (70-99) mg/dL Lactic Acid 0.5 (0.4-2.0) mmol/L Calcium 7.4 L (8.5-10.1) mg/dL Magnesium 2.2 (1.8-2.4) mg/dL Total Bilirubin 0.8 (0.2-1.0) mg/dL AST 17 (15-37) U/L ALT 20 (12-78) U/L Alkaline Phosphatase 54 (46-116) IU/L Total Protein 5.5 L (6.4-8.2) g/dL Albumin 2.5 L (3.4-5.0) g/dL Result Diagrams: 02/22/21 07:42 02/22/21 07:42 Sepsis Event Note - Evaluation Sepsis Screening Result: No Definite Risk - Focused Exam Vital Signs: Vital Signs Temp Pulse Resp BP BP Pulse Ox 02/22/21 08:15 141/73 H 02/22/21 06:00 37.2 C 89 18 130/62 98 - Problem List & Annotations (1) Abdominal pain SNOMED Code(s): 29756948 Code(s): R10.9 - UNSPECIFIED ABDOMINAL PAIN Status: Acute Priority: High Current Visit: Yes Onset Date: ~02/16/21 Qualifiers: Abdominal location: generalized Qualified Code(s): R10.84 - Generalized abdominal pain Annotation/Comment:: Patient admitted to [facility] on about 02/16/2021 with abdominal pain and obstipation with no evidence of constipation at this time. Magnesium supplementation with caution as above secondary to mild loose stools currently. The patient does not feel that she is ready to go home at this time secondary to nonspecific generalized weakness, dizziness, etc. with some dehydration and multiple electrolyte imbalances after recent treatment for her constipation at time of hospitalization as above. Abdominal pain has resolved with no nausea or emesis at this time. Secondary to refractory symptoms patient will be changed from observation to inpatient/acute care status. Initiate PT secondary to her generalized weakness and chronic right-sided sciatica/low back pain. (2) Hypomagnesemia SNOMED Code(s): 297652432 Code(s): E83.42 - HYPOMAGNESEMIA Status: Acute Priority: High Current Visit: Yes Annotation/Comment:: IV sulfate given shortly after admission with normal magnesium level on 02/22. Initiate oral magnesium supplementation. Pr evious leg cramps have completely resolved after correction of her multiple electrolyte imbalances. (3) Hypoalbuminemia SNOMED Code(s): 616231468 Code(s): E88.09 - [facility] DISORDERS OF PLASMA-PROTEIN METABOLISM, NEC Status: Chronic Priority: Medium Current Visit: Yes Onset Date: 08/22/18 Annotation/Comment:: Observe for now. (4) Hypocalcemia SNOMED Code(s): 4335599 Code(s): E83.51 - HYPOCALCEMIA Status: Chronic Priority: Medium Current Visit: Yes Annotation/Comment:: Adjust calcium supplementation during this hospitalization. (5) Anemia SNOMED Code(s): 553395993 Code(s): D64.9 - ANEMIA, UNSPECIFIED Status: Chronic Priority: Medium Current Visit: Yes Qualifiers: Anemia type: unspecified type Qualified Code(s): D64.9 - Anemia, unspecified Annotation/Comment:: History of chronic anemia secondary to her chemotherapy. 1.5 g hemoglobin drop since admission possibly secondary to rehydration effect. Blood work-up on 02/23. No evidence of acute GI bleed, etc. (6) COPD (chronic obstructive pulmonary disease) SNOMED Code(s): 13024934 Code(s): J44.9 - CHRONIC OBSTRUCTIVE PULMONARY DISEASE, UNSPECIFIED Status: Chronic Priority: Medium Current Visit: Yes Qualifiers: COPD type: emphysema Emphysema type: panlobular Qualified Code(s): J43.1 - Panlobular emphysema Annotation/Comment:: Currently under therapy with no recent fever, bronchitic type symptoms, etc.. Stable per patient (7) Hypertension SNOMED Code(s): 34573109 Code(s): I10 - ESSENTIAL (PRIMARY) HYPERTENSION Status: Chronic Priority: Medium Current Visit: Yes Qualifiers: Hypertension type: essential hypertension Qualified Code(s): I10 - Essential (primary) hypertension Annotation/Comment:: Blood pressures stable during this hospitalization. Continue to observe closely by her regular provider. (8) Peptic reflux disease SNOMED Code(s): 369130440 Code(s): K21.9 - GASTRO-ESOPHAGEAL REFLUX DISEASE WITHOUT ESOPHAGITIS Sta tus: Chronic Priority: Low Current Visit: Yes Annotation/Comment:: Stable by history with history of hiatal hernia as above. Note additional history of pernicious anemia. (9) Weakness SNOMED Code(s): 44071099 Code(s): R53.1 - WEAKNESS Status: Chronic Priority: High Current Visit: Yes Annotation/Comment:: As above with history of metastic cancer. PT consultation ordered on 02/22. (10) Hypokalemia SNOMED Code(s): 91626254 Code(s): E87.6 - HYPOKALEMIA Status: Chronic Priority: Medium Current Visit: Yes Annotation/Comment:: Severe initial hypokalemia, which was artifactual in nature secondary to insufficient blood sample. Potassium level normal on 02/22. Continue medication adjustments during this hospitalization. (11) CHF (congestive heart failure) SNOMED Code(s): 70580643 Code(s): I50.9 - HEART FAILURE, UNSPECIFIED Status: Chronic Priority: Medium Current Visit: Yes Onset Date: ~08/22/18 Qualifiers: Heart failure type: unspecified Heart failure chronicity: chronic Qualified Code(s): I50.9 - Heart failure, unspecified Annotation/Comment:: Adjust diet accordingly including fluid restriction, etc. No chest pain or anginal type symptoms. (12) Comfort measures only status SNOMED Code(s): 06317528800614 Code(s): Z51.5 - ENCOUNTER FOR PALLIATIVE CARE Status: Chronic Priority: Medium Current Visit: Yes Annotation/Comment:: Continue comfort care. Prognosis guarded secondary to multiple healthcare issues as above. - Problem List Review Problem List Initiated/Reviewed/Updated: Yes - Assessment Assessment:: As above. - Plan Plan:: As above. Extensive precautions were given to the patient, who is in agreement with the treatment plan. The patient does not feel she is ready to go home as above. The patient will require about 2-3 days of inpatient/acute care secondary to multiple health problems as above.
[2021-02-22] MEDS: Magnesium Oxide 400 MG Tab PO SCH (17:10)
[2021-02-22] MEDS: Sodium Chloride 0.9% 10 ML Syringe FLUSH PRN (19:44)
[2021-02-22] MEDS: Ketorolac 15 MG/ML SDV IVPUSH PRN (19:44)
[2021-02-23] MEDS: Ketorolac 15 MG/ML SDV IVPUSH PRN ×3 (02:08→23:20)
[2021-02-23] MEDS: Sodium Chloride 0.9% 10 ML Syringe FLUSH PRN ×4 (02:09→17:44)
[2021-02-23] MEDS: Potassium Chloride 20 MEQ Tab.ER PO SCH ×3 (07:27→17:45)
[2021-02-23] MEDS: Calcium Carbonate/Vitamin D3 625 MG-125 Unit Tab PO SCH ×3 (07:27→17:44)
[2021-02-23] MEDS: Cyanocobalamin (Vitamin B12) 1,000 MCG Tab PO SCH (07:27)
[2021-02-23] MEDS: Furosemide 40 MG Tab PO SCH (07:27)
[2021-02-23] MEDS: Midodrine 5 MG Tab PO SCH ×2 (07:27→17:45)
[2021-02-23] MEDS: Multivitamin Tab PO SCH (07:28)
[2021-02-23] MEDS: Doxazosin 2 MG Tab PO SCH (07:28)
[2021-02-23] MEDS: Cholecalciferol (Vitamin D3) 25 MCG Tab PO SCH (07:28)
[2021-02-23 08:41] LABS: CHLORIDE,CL 107 mmol/L (98-107); SODIUM,NA 139 mmol/L (136-145)
--- NOTE | 2021-02-23 10:25 | PCM.PN ---
- General Info Date of Service: 02/23/21 Admission Dx/Problem (Free Text): 1. Abdominal pain 2. Nausea and vomiting 3. CHF Functional Status: Reports: Pain Controlled, Tolerating Diet, Ambulating (With assist and walker use), Urinating, Incentive Spirometry. Denies: New Symptoms Pain Score: 6 (Stable right sciatica) - Review of Systems General: Reports: Fever (Maximum 37.8 degrees), Weakness (Stable), Fatigue (Improved). Denies: Malaise, Chills, Night Sweats, Appetite (Adequate) HEENT: Reports: No Symptoms. Denies: Headaches, Sinus Congestion, Visual Changes Pulmonary: Reports: No Symptoms. Denies: Shortness of Breath, Pleuritic Chest Pain, Cough, Sputum, Wheezing Cardiovascular: Reports: No Symptoms. Denies: Chest Pain, Palpitations, Dyspnea on Exertion, Orthopnea, Edema, Lightheadedness Gastrointestinal: Denies: Abdominal Pain, Constipation, Decreased Appetite, Diarrhea (Although some loose stools yesterday with no bowel movement yet this morning), Difficulty Swallowing, Flatus, Hematochezia, Melena, Nausea, Vomiting Genitourinary: Reports: No Symptoms. Denies: Dysuria, Frequency, Burning, Urgency, Incontinence, Hematuria, Retention, Flank Pain Musculoskeletal: Reports: Back Pain, Leg Pain (Right-sided sciatica). Denies: Neck Pain, Shoulder Pain, Arm Pain Skin: Reports: No Symptoms. Denies: Diaphoresis, Bruising Neurological: Reports: Difficulty Walking (Walker required with right-sided sciatica), Weakness (As above). Denies: Confusion, Headache Psychiatric: Denies: Confusion, Depression, Anxiety, Agitation, Cravings, Hallucinations, Homicidal Ideation - Patient Data Vitals - Most Recent: Last Vital Signs Temp 37.1 C 02/23/21 08:00 Pulse 83 02/23/21 08:00 Resp 14 02/23/21 08:00 BP 130/73 02/23/21 08:00 Pulse Ox 96 02/23/21 08:00 Vital Signs - 24 hr 02/22/21 02/22/21 02/22/21 12:00 18:00 19:40 Temperature [ 36.8 C 37.8 C 37.8 C Oral] Pulse, 86 92 93 Peripheral [ Left Pulse Oximetry] Respiratory 16 16 20 Rate Blood Pressure Blood Pressure 106/83 119/67 99/58 L [Left Upper Arm ] O2 Sat by Pulse 96 95 92 L Oximetry 02/23/21 02/23/21 02/23/21 02:00 07:28 08:00 Temperature [ 37.1 C 37.1 C Oral] Pulse, 89 83 Peripheral [ Left Pulse Oximetry] Respiratory 20 14 Rate Blood Pressure 130/73 Blood Pressure 120/66 130/73 [Left Upper Arm ] O2 Sat by Pulse 97 96 Oximetry Weight - Most Recent: 75.115 kg I&O - Last 24 Hours: Intake & Output 02/22/21 02/23/21 02/23/21 22:59 06:59 14:59 Intake Total 1152 240 Output Total 300 Balance 852 240 Imaging Impressions - Last 24 Hours: Chest x-ray, PA and lateral, shows moderate COPD changes with small right-sided pleural effusion and probable mild centralized CHF. Left-sided Port-A-Cath noted. No pulmonary infiltrates or pneumothorax. Mild kyphosis with moderate osteoarthritic and osteoporotic changes. Lab Results Last 24 Hours: Laboratory Results - last 24 hr 02/23/21 02/23/21 02/23/21 Range/Units 07:28 07:28 07:28 WBC 9.7 (4.0-10.2) K/uL RBC 3.63 L (3.77-5.09) M/uL Hgb 10.6 L (11.7-15.5) g/dL Hct 33.3 L (34.0-46.0) % MCV 91.7 (84.0-98.0) fL MCH 29.2 (28.2-33.3) pg MCHC 31.8 (31.7-36.0) g/dL RDW 13.4 (11.2-14.1) % Plt Count 153 (150-350) K/uL Neut % (Auto) 79.3 (45.0-80.0) % Lymph % (Auto) 10.3 (10.0-50.0) % Taney % (Auto) 9.2 (2.0-14.0) % Eos % (Auto) 1.0 (0.0-5.0) % Baso % (Auto) 0.2 (0.0-2.0) % Neut # (Auto) 7.68 H (1.40-7.00) K/uL Lymph # (Auto) 1.00 (0.50-3.50) K/uL [place] # (Auto) 0.89 (0.00-1.00) K/uL Eos # (Auto) 0.10 (0.00-0.50) K/uL Baso # (Auto) 0.02 (0.00-0.20) K/uL Sodium 139 (136-145) mmol/L Potassium 4.0 (3.5-5.1) mmol/L Chloride 107 (98-107) mmol/L Carbon Dioxide 23.1 (21.0-32.0) mmol/L BUN 13 (7-18) mg/dL Creatinine 0.67 (0.51-1.17) mg/dL Est Cr Clr Drug Dosing 68.96 mL/min Estimated GFR (MDRD) > 60 mL/min Glucose 87 (70-99) mg/dL Calcium 7.5 L (8.5-10.1) mg/dL Iron 15 L (50-175) ug/dL TIBC 219 L (250-450) ug/dL % Saturation 6.02127 Ferritin 248 (8-388) ng/mL Creatine Kinase 75 (26-308) U/L Creatine Kinase Index 0.5 (0.0-2.5) % CK-MB (CK-2) 0.40 (0.00-3.60) ng/mL Troponin I 0.000 (0.000-0.056) ng/mL NT-Pro-B Natriuret Pep 261 H (0-125) pg/mL Vitamin B12 2203 H (193-986) pg/mL Folate 22.3 (8.6-58.9) ng/mL [place] Results Last 24 Hours: None Med Orders - Current: Current Medications Hydrocodone Bitart/Acetaminophen (Acetaminophen/Hydrocodone 325-5 Mg Tab) 1 tab PO BEDTIME PRN PRN Reason: Pain Calcium Carbonate (Calcium Carbonate/Vitamin D3 625 Mg-125 Unit Tab) 1 tab PO TID [facility] Last Admin: 02/23/21 07:27 Dose: 1 tab Documented by: Cholecalciferol (Cholecalciferol (Vitamin D3) 25 Mcg Tab) 25 mcg PO DAILY [facility] Last Admin: 02/23/21 07:28 Dose: 25 mcg Documented by: Cyanocobalamin (Cyanocobalamin (Vitamin B12) 1,000 Mcg Tab) 5,000 mcg PO QAM [facility] Last Admin: 02/23/21 07:27 Dose: 5,000 mcg Documented by: Doxazosin Mesylate (Doxazosin 2 Mg Tab) 2 mg PO QAM [facility] Last Admin: 02/23/21 07:28 Dose: 2 mg Documented by: Furosemide (Furosemide 40 Mg Tab) 40 mg PO BID@0800,1200 [facility] Last Admin: 02/23/21 07:27 Dose: 40 mg Documented by: Heparin Sodium (Porcine) (Heparin Sodium 100 Units/Ml 5 Ml Syringe) 500 units FLUSH ASDIRECTED PRN PRN Reason: post port use Last Admin: 02/23/21 07:28 Dose: 500 units Documented by: Ketorolac Tromethamine (Ketorolac 15 Mg/Ml Sdv) 15 mg IVPUSH Q6H PRN PRN Reason: Pain Stop: 02/26/21 09:01 Last Admin: 02/23/21 10:09 Dose: 15 mg Documented by: Loperamide HCl (Loperamide 2 Mg Tab) 2 mg PO Q4H PRN PRN Reason: Diarrhea Last Admin: 02/22/21 23:02 Dose: 2 mg Documented by: Magnesium Oxide (Magnesium Oxide 400 Mg Tab) 400 mg PO QPM [facility] Last Admin: 02/22/21 17:10 Dose: 400 mg Documented by: Midodrine (Midodrine 5 Mg Tab) 2.5 mg PO BID [facility] Last Admin: 02/23/21 07:27 Dose: 2.5 mg Documented by: Multivitamins/Minerals/Vitamin C (Multivitamin Tab) [facility] [place] [facility] Admin: 02/23/21 07:28 Dose: 1 tab Documented by: Non-Formulary Medication (Biotin [Biotin]) 5 mg PO DAILY [facility] Non-Formulary Medication (Lactase [Lactaid]) 3,000 unit PO ASDIRECTED PRN PRN Reason: Extra Lactose in Diet Non-Formulary Medication (Letrozole) 2.5 mg PO DAILY [facility] Non-Formulary Medication (Non-Formulary Medication [Nf Drug]) 2 each PO BID [facility] Potassium Chloride (Potassium Chloride 20 Meq Tab.Er) 20 meq PO TID [facility] Last Admin: 02/23/21 07:27 Dose: 20 meq Documented by: Simethicone (Simethicone 80 Mg Tab.Chew) 160 mg PO Q4H PRN PRN Reason: Dyspepsia Last Admin: 02/22/21 19:44 Dose: 160 mg Documented by: Sodium Chloride (Sodium Chloride 0.9% 10 Ml Syringe) 10 ml FLUSH ASDIRECTED PRN PRN Reason: Port use Last Admin: 02/23/21 10:11 Dose: 10 ml Documented by: Discontinued Medications Sodium Chloride (Normal Saline) 1,000 mls @ 999 mls/hr IV ASDIRECTED [facility] Last Admin: 02/21/21 06:27 Dose: 999 mls/hr Documented by: Potassium Chloride/Sodium Chloride (Normal Saline With 20 Meq Kcl) 1,000 mls @ 100 mls/hr IV ASDIRECTED [facility] Last Admin: 02/21/21 07:57 Dose: 100 mls/hr Documented by: Magnesium Sulfate/Dextrose 1 (gm/ Premix) 100 mls @ 100 mls/hr IV ONETIME ONE Stop: 02/21/21 08:48 Last Admin: 02/21/21 08:31 Dose: 100 mls/hr Documented by: Magnesium Sulfate/Dextrose 1 (gm/ Premix) 100 mls @ 100 mls/hr IV ONETIME ONE Stop: 02/21/21 10:59 Last Admin: 02/21/21 10:28 Dose: 100 mls/hr Documented by: Sodium Chloride (Normal Saline) 1,000 mls @ 75 mls/hr IV ASDIRECTED [facility] Last Admin: 02/22/21 08:13 Dose: 75 mls/hr Documented by: Non-Formulary Medication (Magnesium Oxide [Magnesium Oxide]) 250 mg PO [facility] Ondansetron HCl (Ondansetron 4 Mg/2 Ml Sdv) 4 mg IVPUSH ONETIME ONE Stop: 02/21/21 06:12 Last Admin: 02/21/21 06:27 Dose: 4 mg Documented by: Ondansetron HCl (Ondansetron 4 Mg/2 Ml Sdv) 4 mg IM ONETIME ONE Stop: 02/21/21 09:31 Last Admin: 02/21/21 10:25 Dose: Not Given Documented by: Ondansetron HCl (Ondansetron 4 Mg/2 Ml Sdv) 4 mg IV ONETIME ONE Stop: 02/21/21 10:31 Last Admin: 02/21/21 10:28 Dose: 4 mg Documented by: Potassium Chloride (Potassium Chloride 20 Meq Tab.Er) 20 meq PO ONETIME ONE Stop: 02/21/21 07:22 Last Admin: 02/21/21 07:38 Dose: Not Given Documented by: Promethazine HCl (Promethazine 25 Mg/Ml Sdv) 25 mg IM ONETIME ONE Stop: 02/21/21 07:25 Last Admin: 02/21/21 07:58 Dose: 25 mg Documented by: - Exam Quality Assessment: DVT Prophylaxis. No: Supplemental Oxygen, Central Line/PICC, Urine Catheter, Skin Breakdown, Restraints Central Line Total Time: 2Days 3Hours General: Alert, Oriented, Cooperative, No Acute Distress HEENT: Pupils Equal, Pupils Reactive, EOMI, Mucous Membr. Moist/[place], Other (No vertigo or nystagmus). No: Scleral Icterus Neck: Supple, Trachea Midline, No JVD, No Thyromegaly, Carotid Bruit (Mild bilateral carotid bruits versus transmitted heart sounds). No: Lymphadenopathy Lungs: Normal Respiratory Effort, Rales (Mild bilateral baseline). No: Rhonchi, Rub, Stridor, Wheezing Cardiovascular: Regular Rate, Regular Rhythm, Murmurs (Mild 1/6 JANELL of the aortic and mitral valves). No: Gallops, Rubs GI/Abdominal Exam: Normal Bowel Sounds, Soft, Non-Tender, No Organomegaly, No Distention, No Abnormal Bruit, No Mass, Pelvis Stable. No: Guarding (Female) Exam: Deferred Back Exam: Decreased Range of Motion (Mild secondary to chronic low back pain), Other (Mild kyphosis). No: CVA Tenderness (L), CVA Tenderness (R), Muscle Spasm, Paraspinal Tenderness Extremities: Normal Inspection, Normal Range of Motion, Non-Tender, No Pedal Edema, Normal Capillary Refill. No: Dianne's Sign Peripheral Pulses: 2+: Radial (L), Radial (R), Posterior Tibial (R), Dorsalis Pedis (L) Skin: Warm, Dry, Intact. No: Ecchymosis Neurological: No New Focal Deficit Psy/Mental Status: Alert, Normal Affect, Normal Mood, Anxious (Improvedmild), Depressed (Improvedmild). No: Agitated, Hallucinations, Withdrawal Symptoms - Patient Data Lab Results Last 24 hrs: Laboratory Results - last 24 hr 02/23/21 02/23/21 02/23/21 Range/Units 07:28 07:28 07:28 WBC 9.7 (4.0-10.2) K/uL RBC 3.63 L (3.77-5.09) M/uL Hgb 10.6 L (11.7-15.5) g/dL Hct 33.3 L (34.0-46.0) % MCV 91.7 (84.0-98.0) fL MCH 29.2 (28.2-33.3) pg MCHC 31.8 (31.7-36.0) g/dL RDW 13.4 (11.2-14.1) % Plt Count 153 (150-350) K/uL Neut % (Auto) 79.3 (45.0-80.0) % Lymph % (Auto) 10.3 (10.0-50.0) % [place]aney % (Auto) 9.2 (2.0-14.0) % Eos % (Auto) 1.0 (0.0-5.0) % Baso % (Auto) 0.2 (0.0-2.0) % Neut # (Auto) 7.68 H (1.40-7.00) K/uL Lymph # (Auto) 1.00 (0.50-3.50) K/uL Taney # (Auto) 0.89 (0.00-1.00) K/uL Eos # (Auto) 0.10 (0.00-0.50) K/uL Baso # (Auto) 0.02 (0.00-0.20) K/uL Sodium 139 (136-145) mmol/L Potassium 4.0 (3.5-5.1) mmol/L Chloride 107 (98-107) mmol/L Carbon Dioxide 23.1 (21.0-32.0) mmol/L BUN 13 (7-18) mg/dL Creatinine 0.67 (0.51-1.17) mg/dL Est Cr Clr Drug Dosing 68.96 mL/min Estimated GFR (MDRD) > 60 mL/min Glucose 87 (70-99) mg/dL Calcium 7.5 L (8.5-10.1) mg/dL Iron 15 L (50-175) ug/dL TIBC 219 L (250-450) ug/dL % Saturation 6.71769 Ferritin 248 (8-388) ng/mL Creatine Kinase 75 (26-308) U/L Creatine Kinase Index 0.5 (0.0-2.5) % CK-MB (CK-2) 0.40 (0.00-3.60) ng/mL Troponin I 0.000 (0.000-0.056) ng/mL NT-Pro-B Natriuret Pep 261 H (0-125) pg/mL Vitamin B12 2203 H (193-986) pg/mL Folate 22.3 (8.6-58.9) ng/mL Result Diagrams: 02/23/21 07:28 02/23/21 07:28 Sepsis Event Note - Evaluation Sepsis Screening Result: No Definite Risk - Focused Exam Vital Signs: Vital Signs Temp Pulse Resp BP BP Pulse Ox 02/23/21 08:00 37.1 C 83 14 130/73 96 02/23/21 07:28 130/73 02/23/21 02:00 37.1 C 89 20 120/66 97 - Problem List & Annotations (1) Abdominal pain SNOMED Code(s): 23606935 Code(s): R10.9 - UNSPECIFIED ABDOMINAL PAIN Status: Acute Priority: High Current Visit: Yes Onset Date: ~02/16/21 Qualifiers: Abdominal location: generalized Qualified Code(s): R10.84 - Generalized abdominal pain Annotation/Comment:: Patient admitted to [facility] on about 02/16/2021 with abdominal pain and obstipation with no evidence of constipation at this time. Magnesium supplementation with caution as above secondary to mild loose stools currently. The patient did not feel that she was ready to go home at this time secondary to nonspecific generalized weakness, dizziness, etc. with some dehydration and multiple electrolyte imbalances after recent treatment for her constipation at time of hospitalization as above. Abdominal pain has resolved with no nausea or emesis at this time. Secondary to refractory symptoms patient was changed from observation to inpatient/acute care status on 02/22. PT ordered on 02/22 secondary to her generalized weakness and chronic right-sided sciatica/low back pain with initial evaluation scheduled for 02/23. (2) CHF (congestive heart failure) SNOMED Code(s): 83310940 Code(s): I50.9 - HEART FAILURE, UNSPECIFIED Status: Chronic Priority: Medium Current Visit: Yes Onset Date: ~08/22/18 Qualifiers: Heart failure type: unspecified Heart failure chronicity: chronic Qualified Code(s): I50.9 - Heart failure, unspecified Annotation/Comment:: Adjust diet accordingly including fluid restriction, etc. No chest pain or anginal type symptoms. Note mild CHF with pleural effusion by chest x-ray on 02/23 with IV Lasix therapy with caution secondary to her electrolyte imbalances at time of admission. No further echocardiogram, etc. secondary to her comfort care status. The patient has been having a thoracentesis on an every [address] scan of the chest and follow-up appointment with Dr. Serna at [facility] [place] already scheduled for 03/03 by patient history. (3) COPD (chronic obstructive pulmonary disease) SNOMED Code(s): 44036395 Code(s): J44.9 - CHRONIC OBSTRUCTIVE PULMONARY DISEASE, UNSPECIFIED Status: Chronic Priority: Medium Current Visit: Yes Qualifiers: COPD type: emphysema Emphysema type: panlobular Qualified Code(s): J43.1 - Panlobular emphysema Annotation/Comment:: Currently under therapy with fever on 02/22 and initiation of Rocephin therapy on 02/23. No bronchitic type symptoms or significant pneumonia by chest x-ray on 02/23, however note difficult to assess secondary to concomitant borderline CHF. Attempt to obtain a sputum specimen. (4) Hypomagnesemia SNOMED Code(s): 642892483 Code(s): E83.42 - HYPOMAGNESEMIA Status: Acute Priority: High Current Visit: Yes Annotation/Comment:: IV sulfate given shortly after admission with normal magnesium level on 02/22. Initiate oral magnesium supplementation. Previous leg cramps have completely resolved after correction of her multiple electrolyte imbalances. (5) Hypoalbuminemia SNOMED Code(s): 034447049 Code(s): E88.09 - [facility] DISORDERS OF PLASMA-PROTEIN METABOLISM, NEC Status: Chronic Priority: Medium Current Visit: Yes Onset Date: 08/22/18 Annotation/Comment:: Observe for now. (6) Hypocalcemia SNOMED Code(s): 7548409 Code(s): E83.51 - HYPOCALCEMIA Status: Chronic Priority: Medium Current Visit: Yes Annotation/Comment:: Adjust calcium supplementation during this hospitalization. (7) Anemia SNOMED Code(s): 922824825 Code(s): D64.9 - ANEMIA, UNSPECIFIED Status: Chronic Priority: Medium Current Visit: Yes Qualifiers: Anemia type: iron deficiency Iron deficiency anemia type: unspecified iron deficiency Qualified Code(s): D50.9 - Iron deficiency anemia, unspecified Annotation/Comment:: History of chronic anemia secondary to her chemotherapy. 1.5 g hemoglobin drop on 02/22 since admission possibly secondary to rehydration effect, however stable on 02/23. Newly diagnosed iron deficiency anemia with Blood work-up on 02/23 with normal folic acid and vitamin B12 levels. Iron sulfate therapy initiated on 02/23 with close follow-up by regular provider after discharge. No evidence of acute GI bleed, etc. (8) Hypertension SNOMED Code(s): 34918786 Code(s): I10 - ESSENTIAL (PRIMARY) HYPERTENSION Status: Chronic Priority: Medium Current Visit: Yes Qualifiers: Hypertension type: essential hypertension Qualified Code(s): I10 - Essential (primary) hypertension Annotation/Comment:: Blood pressures stable during this hospitalization although somewhat low and nonsymptomatic on . Continue to observe closely by her regular provider. (9) Peptic reflux disease SNOMED Code(s): 135656694 Code(s): K21.9 - GASTRO-ESOPHAGEAL REFLUX DISEASE WITHOUT ESOPHAGITIS Status: Chronic Priority: Low Current Visit: Yes Annotation/Comment:: Stable by history with history of hiatal hernia as above. Note additional history of pernicious anemia with normal vitamin B12 level on 02/23 02/23. (10) Weakness SNOMED Code(s): 27946961 Code(s): R53.1 - WEAKNESS Status: Chronic Priority: High Current Visit: Yes Annotation/Comment:: As above with history of metastic cancer. PT consultation ordered on 02/22. (11) Hypokalemia SNOMED Code(s): 71888507 Code(s): E87.6 - HYPOKALEMIA Status: Chronic Priority: Medium Current Visit: Yes Annotation/Comment:: Severe initial hypokalemia, which was artifactual in nature secondary to insufficient blood sample. Potassium level normal on 02/22. Continue medication adjustments during this hospitalization. (12) Comfort measures only status SNOMED Code(s): 31198801101670 Code(s): Z51.5 - ENCOUNTER FOR PALLIATIVE CARE Status: Chronic Priority: Medium Current Visit: Yes Annotation/Comment:: Continue comfort care. Prognosis guarded secondary to multiple healthcare issues as above. - Problem List Review Problem List Initiated/Reviewed/Updated: Yes - My Orders Last 24 Hours: My Active Orders 02/22/21 Lunch Fluid Restriction [DIET] 02/22/21 11:54 PT Evaluation and Treatment [CONS] Routine 02/22/21 12:20 Comfort Measures [OM.PC] Routine 02/22/21 18:00 Magnesium Oxide 400 mg PO QPM 02/22/21 18:12 Admission Status [Patient Status] [ADT] Routine 02/23/21 05:11 Chest 2V [CR] Routine - Assessment Assessment:: As above. - Plan Plan:: As above. Extensive precautions were given to the patient, who is in agreement with the treatment plan. The patient does not feel she is ready to go home as above. The patient will require about 2-3 days of inpatient/acute care secondary to multiple health problems as above.
[2021-02-23] MEDS: Pantoprazole 40 MG Vial IVPUSH SCH ×2 (12:35→23:20)
[2021-02-23] MEDS: cefTRIAXone 1 GM in Sodium Chloride 0.9% 100 ML IV SCH ×2 (12:35→23:20)
[2021-02-23] MEDS: Furosemide 40 MG/4 ML VIAL IVPUSH SCH (17:44)
[2021-02-23] MEDS: Dextromethorphan/guaiFENesin 600-30 MG Tab.ER PO SCH (17:44)
[2021-02-23] MEDS: Ferrous Sulfate 325 MG Tab PO SCH (17:45)
[2021-02-23] MEDS: Magnesium Oxide 400 MG Tab PO SCH (17:45)
[2021-02-23] MEDS: Simethicone 80 MG Tab.Chew PO PRN (17:49)
[2021-02-23] MEDS: Calcium Carbonate 750 MG Tab.Chew PO SCH (19:22)
[2021-02-23] MEDS ORDERED: Ondansetron 4 MG Tab.DIS PO PRN (21:07)
[2021-02-24] MEDS: Multivitamin Tab PO SCH (07:47)
[2021-02-24] MEDS: Ferrous Sulfate 325 MG Tab PO SCH ×2 (07:47→17:23)
[2021-02-24] MEDS: Doxazosin 2 MG Tab PO SCH (07:47)
[2021-02-24] MEDS: Potassium Chloride 20 MEQ Tab.ER PO SCH (07:47)
[2021-02-24] MEDS: Midodrine 5 MG Tab PO SCH ×2 (07:48→17:24)
[2021-02-24] MEDS: Dextromethorphan/guaiFENesin 600-30 MG Tab.ER PO SCH ×2 (07:48→17:23)
[2021-02-24] MEDS: Cyanocobalamin (Vitamin B12) 1,000 MCG Tab PO SCH (07:49)
[2021-02-24] MEDS: Calcium Carbonate/Vitamin D3 625 MG-125 Unit Tab PO SCH ×3 (07:50→17:23)
[2021-02-24] MEDS: Cholecalciferol (Vitamin D3) 25 MCG Tab PO SCH (07:50)
[2021-02-24] MEDS: Furosemide 40 MG/4 ML VIAL IVPUSH SCH ×2 (07:51→17:23)
--- NOTE | 2021-02-24 08:08 | PCM.PN ---
- General Info Date of Service: 02/24/21 Admission Dx/Problem (Free Text): 1. Abdominal pain 2. Nausea and vomiting 3. CHF Functional Status: Reports: Pain Controlled, Tolerating Diet, Ambulating (With assist and walker use), Urinating. Denies: New Symptoms, Incentive Spirometry Pain Score: 3 (Low back pain with right-sided sciatica) - Review of Systems General: Reports: Fever (Maximum temperature of 37.6 degrees), Weakness (Improved to generalized however particular on right side secondary to her chronic low back pain). Denies: Fatigue, Malaise, Chills, Night Sweats, Appetite (Good) HEENT: Reports: Contact Lenses. Denies: Ear Pain, Eye Pain, Glasses, Headaches, Sinus Congestion, Rhinitis, Visual Changes Pulmonary: Reports: Cough. Denies: Shortness of Breath, Pleuritic Chest Pain, Sputum, Hemoptysis, Wheezing Cardiovascular: Reports: Other (Nonspecific hot flashes with Rocephin yesterday without true allergic reaction). Denies: Chest Pain, Palpitations, Dyspnea on Exertion, Orthopnea, Lightheadedness Gastrointestinal: Reports: No Symptoms, Other (Excellent bowel movement earlier this morning). Denies: Abdominal Pain, Constipation, Decreased Appetite, Diarrhea, Difficulty Swallowing, Flatus, Hematochezia, Melena, Nausea, Vomiting Genitourinary: Reports: No Symptoms. Denies: Dysuria, Frequency, Burning, Urgency, Hematuria, Retention, Flank Pain Musculoskeletal: Reports: Back Pain (Stable right lumbar with secondary sciatica), Leg Pain (Sciatica as above). Denies: Neck Pain, Shoulder Pain, Arm Pain, Hand Pain, Joint Pain Skin: Reports: No Symptoms. Denies: Diaphoresis, Bruising, Rash Neurological: Reports: Pre-Existing Deficit (As above/below), Difficulty Walking (Secondary to right-sided sciatica with walker required), Weakness (Stable as above). Denies: Confusion, Headache Psychiatric: Reports: No Symptoms. Denies: Confusion, Depression, Anxiety, Agitation, Cravings, Hallucinations - Patient Data Vitals - Most Recent: Last Vital Signs Temp 37.2 C 02/24/21 02:00 Pulse 74 02/24/21 02:00 Resp 18 02/24/21 02:00 BP 136/71 02/24/21 07:47 Pulse Ox 96 02/24/21 02:00 Vital Signs - 24 hr 02/23/21 02/23/21 02/24/21 14:00 19:43 02:00 Temperature [ 37.6 C 37.5 C 37.2 C Oral] Pulse, 75 84 74 Peripheral [ Left Pulse Oximetry] Respiratory 16 14 18 Rate Blood Pressure Blood Pressure 91/57 L 111/61 122/62 [Left Upper Arm ] O2 Sat by Pulse 96 95 96 Oximetry 02/24/21 07:47 Temperature [ Oral] Pulse, Peripheral [ Left Pulse Oximetry] Respiratory Rate Blood Pressure 136/71 Blood Pressure [Left Upper Arm ] O2 Sat by Pulse Oximetry Weight - Most Recent: 75.115 kg I&O - Last 24 Hours: Intake & Output 02/23/21 02/24/21 02/24/21 22:59 06:59 14:59 Intake Total 740 100 Balance 740 100 Imaging Impressions - Last 24 Hours: None Lab Results Last 24 Hours: Laboratory Results - last 24 hr 02/23/21 02/23/21 Range/Units 07:28 07:28 Sodium 139 (136-145) mmol/L Potassium 4.0 (3.5-5.1) mmol/L Chloride 107 (98-107) mmol/L Carbon Dioxide 23.1 (21.0-32.0) mmol/L BUN 13 (7-18) mg/dL Creatinine 0.67 (0.51-1.17) mg/dL Est Cr Clr Drug Dosing 68.96 mL/min Estimated GFR (MDRD) > 60 mL/min Glucose 87 (70-99) mg/dL Calcium 7.5 L (8.5-10.1) mg/dL Iron 15 L (50-175) ug/dL TIBC 219 L (250-450) ug/dL % Saturation 6.54872 Ferritin 248 (8-388) ng/mL Creatine Kinase 75 (26-308) U/L Creatine Kinase Index 0.5 (0.0-2.5) % CK-MB (CK-2) 0.40 (0.00-3.60) ng/mL Troponin I 0.000 (0.000-0.056) ng/mL NT-Pro-B Natriuret Pep 261 H (0-125) pg/mL Vitamin B12 2203 H (193-986) pg/mL Folate 22.3 (8.6-58.9) ng/mL Laboratory Results - last 24 hr 02/23/21 02/24/21 02/24/21 Range/Units 07:28 08:11 08:11 WBC 7.9 (4.0-10.2) K/uL RBC 3.79 (3.77-5.09) M/uL Hgb 11.2 L (11.7-15.5) g/dL Hct 34.5 (34.0-46.0) % MCV 91.0 (84.0-98.0) fL MCH 29.6 (28.2-33.3) pg MCHC 32.5 (31.7-36.0) g/dL RDW 13.2 (11.2-14.1) % Plt Count 190 (150-350) K/uL Neut % (Auto) 81.3 H (45.0-80.0) % Lymph % (Auto) 11.1 (10.0-50.0) % Mcdonough % (Auto) 4.6 (2.0-14.0) % Eos % (Auto) 2.7 (0.0-5.0) % Baso % (Auto) 0.3 (0.0-2.0) % Neut # (Auto) 6.39 (1.40-7.00) K/uL Lymph # (Auto) 0.87 (0.50-3.50) K/uL Mcdonough # (Auto) 0.36 (0.00-1.00) K/uL Eos # (Auto) 0.21 (0.00-0.50) K/uL Baso # (Auto) 0.02 (0.00-0.20) K/uL Sodium 139 139 (136-145) mmol/L Potassium 4.0 3.3 L (3.5-5.1) mmol/L Chloride 107 106 (98-107) mmol/L Carbon Dioxide 23.1 20.9 L (21.0-32.0) mmol/L BUN 13 17 (7-18) mg/dL Creatinine 0.67 0.69 (0.51-1.17) mg/dL Est Cr Clr Drug Dosing 68.96 66.96 mL/min Estimated GFR (MDRD) > 60 > 60 mL/min Glucose 87 147 H (70-99) mg/dL Calcium 7.5 L 7.5 L (8.5-10.1) mg/dL Magnesium 2.1 (1.8-2.4) mg/dL Creatine Kinase 75 (26-308) U/L Creatine Kinase Index 0.5 (0.0-2.5) % CK-MB (CK-2) 0.40 (0.00-3.60) ng/mL Troponin I 0.000 (0.000-0.056) ng/mL NT-Pro-B Natriuret Pep 261 H (0-125) pg/mL Vitamin B12 2203 H (193-986) pg/mL Folate 22.3 (8.6-58.9) ng/mL Med Orders - Current: Current Medications Hydrocodone Bitart/Acetaminophen (Acetaminophen/Hydrocodone 325-5 Mg Tab) 1 tab PO BEDTIME PRN PRN Reason: Pain Calcium Carbonate (Calcium Carbonate/Vitamin D3 625 Mg-125 Unit Tab) 1 tab PO TID [facility] Last Admin: 02/24/21 07:50 Dose: 1 tab Documented by: Calcium Carbonate/Glycine (Calcium Carbonate 750 Mg Tab.Chew) 1,500 mg PO BEDTIME [facility] Last Admin: 02/23/21 19:22 Dose: 1,500 mg Documented by: Cholecalciferol (Cholecalciferol (Vitamin D3) 25 Mcg Tab) 25 mcg PO DAILY [facility] Last Admin: 02/24/21 07:50 Dose: 25 mcg Documented by: Cyanocobalamin (Cyanocobalamin (Vitamin B12) 1,000 Mcg Tab) 5,000 mcg PO QAM [facility] Last Admin: 02/24/21 07:49 Dose: 5,000 mcg Documented by: Doxazosin Mesylate (Doxazosin 2 Mg Tab) 2 mg PO QAM [facility] Last Admin: 02/24/21 07:47 Dose: 2 mg Documented by: Ferrous Sulfate (Ferrous Sulfate 325 Mg Tab) 325 mg PO BIDMEALS [facility] Last Admin: 02/24/21 07:47 Dose: 325 mg Documented by: Furosemide (Furosemide 40 Mg/4 Ml Vial) 40 mg IVPUSH BID [facility] Last Admin: 02/24/21 07:51 Dose: 40 mg Documented by: Guaifenesin/Dextromethorphan (Dextromethorphan/Guaifenesin 600-30 Mg Tab.Er) 1 tab PO BID [facility] Last Admin: 02/24/21 07:48 Dose: 1 tab Documented by: Heparin Sodium (Porcine) (Heparin Sodium 100 Units/Ml 5 Ml Syringe) 500 units FLUSH Q12H [facility] Last Admin: 02/24/21 07:51 Dose: 500 units Documented by: Heparin Sodium (Porcine) (Heparin Sodium 100 Units/Ml 5 Ml Syringe) 500 units FLUSH ASDIRECTED PRN PRN Reason: post port use Heparin Sodium (Porcine) (Heparin Sodium 100 Units/Ml 5 Ml Syringe) 500 units FLUSH BID [facility] Last Admin: 02/24/21 07:52 Dose: Not Given Documented by: Ceftriaxone Sodium 1 gm/ (Sodium Chloride) 100 mls @ 200 mls/hr IV Q12H [facility] Last Admin: 02/23/21 23:20 Dose: 200 mls/hr Documented by: Ketorolac Tromethamine (Ketorolac 15 Mg/Ml Sdv) 15 mg IVPUSH Q6H PRN PRN Reason: Pain Stop: 02/26/21 09:01 Last Admin: 02/23/21 23:20 Dose: 15 mg Documented by: Loperamide HCl (Loperamide 2 Mg Tab) 2 mg PO Q4H PRN PRN Reason: Diarrhea Last Admin: 02/22/21 23:02 Dose: 2 mg Documented by: Magnesium Oxide (Magnesium Oxide 400 Mg Tab) 400 mg PO QPM [facility] Last Admin: 02/23/21 17:45 Dose: 400 mg Documented by: Midodrine (Midodrine 5 Mg Tab) 2.5 mg PO BID [facility] Last Admin: 02/24/21 07:48 Dose: 2.5 mg Documented by: Multivitamins/Minerals/Vitamin C (Multivitamin Tab) 1 tab PO QAM [facility] Last Admin: 02/24/21 07:47 Dose: 1 tab Documented by: Non-Formulary Medication (Biotin [Biotin]) 5 mg PO DAILY [facility] Non-Formulary Medication (Lactase [Lactaid]) 3,000 unit PO ASDIRECTED PRN PRN Reason: Extra Lactose in Diet Non-Formulary Medication (Letrozole) 2.5 mg PO DAILY [facility] Non-Formulary Medication (Non-Formulary Medication [Nf Drug]) 2 each PO BID [facility] Ondansetron HCl (Ondansetron 4 Mg Tab.Dis) 4 mg PO Q4H PRN PRN Reason: Nausea/Vomiting Last Admin: 02/23/21 21:41 Dose: 4 mg Documented by: Pantoprazole Sodium (Pantoprazole 40 Mg Vial) 40 mg IVPUSH Q12H [facility] Last Admin: 02/23/21 23:20 Dose: 40 mg Documented by: Potassium Chloride (Potassium Chloride 20 Meq Tab.Er) 20 meq PO TID [facility] Last Admin: 02/24/21 07:47 Dose: 20 meq Documented by: Simethicone (Simethicone 80 Mg Tab.Chew) 160 mg PO Q4H PRN PRN Reason: Dyspepsia Last Admin: 02/23/21 17:49 Dose: 160 mg Documented by: Sodium Chloride (Sodium Chloride 0.9% 10 Ml Syringe) 10 ml FLUSH ASDIRECTED PRN PRN Reason: Port use Last Admin: 02/23/21 17:44 Dose: 10 ml Documented by: Discontinued Medications Furosemide (Furosemide 40 Mg Tab) 40 mg PO BID@0800,1200 [facility] Last Admin: 02/23/21 07:27 Dose: 40 mg Documented by: Heparin Sodium (Porcine) (Heparin Sodium 100 Units/Ml 5 Ml Syringe) 500 units FLUSH ASDIRECTED PRN PRN Reason: post port use Last Admin: 02/23/21 07:28 Dose: 500 units Documented by: Sodium Chloride (Normal Saline) 1,000 mls @ 999 mls/hr IV ASDIRECTED [facility] Last Admin: 02/21/21 06:27 Dose: 999 mls/hr Documented by: Potassium Chloride/Sodium Chloride (Normal Saline With 20 Meq Kcl) 1,000 mls @ 100 mls/hr IV ASDIRECTED [facility] Last Admin: 02/21/21 07:57 Dose: 100 mls/hr Documented by: Magnesium Sulfate/Dextrose 1 (gm/ Premix) 100 mls @ 100 mls/hr IV ONETIME ONE Stop: 02/21/21 08:48 Last Admin: 02/21/21 08:31 Dose: 100 mls/hr Documented by: Magnesium Sulfate/Dextrose 1 (gm/ Premix) 100 mls @ 100 mls/hr IV ONETIME ONE Stop: 02/21/21 10:59 Last Admin: 02/21/21 10:28 Dose: 100 mls/hr Documented by: Sodium Chloride (Normal Saline) 1,000 mls @ 75 mls/hr IV ASDIRECTED [facility] Last Admin: 02/22/21 08:13 Dose: 75 mls/hr Documented by: Non-Formulary Medication (Magnesium Oxide [Magnesium Oxide]) [address] [facility] Ondansetron HCl (Ondansetron 4 Mg/2 Ml Sdv) 4 mg IVPUSH ONETIME ONE Stop: 02/21/21 06:12 Last Admin: 02/21/21 06:27 Dose: 4 mg Documented by: Ondansetron HCl (Ondansetron 4 Mg/2 Ml Sdv) 4 mg IM ONETIME ONE Stop: 02/21/21 09:31 Last Admin: 02/21/21 10:25 Dose: Not Given Documented by: Ondansetron HCl (Ondansetron 4 Mg/2 Ml Sdv) 4 mg IV ONETIME ONE Stop: 02/21/21 10:31 Last Admin: 02/21/21 10:28 Dose: 4 mg Documented by: Potassium Chloride (Potassium Chloride 20 Meq Tab.Er) 20 meq PO ONETIME ONE Stop: 02/21/21 07:22 Last Admin: 02/21/21 07:38 Dose: Not Given Documented by: Promethazine HCl (Promethazine 25 Mg/Ml Sdv) 25 mg IM ONETIME ONE Stop: 02/21/21 07:25 Last Admin: 02/21/21 07:58 Dose: 25 mg Documented by: - Exam Quality Assessment: Central Line/PICC, DVT Prophylaxis. No: Supplemental Oxygen, Urine Catheter, Skin Breakdown, Restraints Central Line Total Time: 2Days 18Hours General: Alert, Oriented, Cooperative, No Acute Distress HEENT: Pupils Equal, Pupils Reactive, EOMI, Mucous Membr. Moist/Pastura, Other (Patient is wearing glasses with no vertigo or nystagmus) Neck: Supple, Trachea Midline, No JVD, No Thyromegaly, Carotid Bruit (Mild bi lateral carotid bruits versus transmitted heart sounds). No: Lymphadenopathy Lungs: Normal Respiratory Effort, Rales (Mild bilateral basilar rales), Other (Left-sided Port-A-Cath). No: Rhonchi, Rub, Wheezing Cardiovascular: Regular Rate, Regular Rhythm, Murmurs (1/6 JANELL of aortic and mitral valves). No: Gallops, Rubs GI/Abdominal Exam: Normal Bowel Sounds, Soft, Non-Tender, No Organomegaly, No Distention, No Abnormal Bruit, No Mass, Pelvis Stable. No: Guarding (Female) Exam: Deferred Back Exam: Decreased Range of Motion (Stable secondary to chronic low back pain ). No: CVA Tenderness (L), CVA Tenderness (R), Muscle Spasm, Paraspinal Tenderness, Vertebral Tenderness Extremities: Normal Inspection, Normal Range of Motion, Non-Tender, No Pedal Edema, Normal Capillary Refill. No: Dianne's Sign Peripheral Pulses: 2+: Radial (L), Radial (R), Dorsalis Pedis (L), Dorsalis Pedis (R) Skin: Warm, Dry, Intact Neurological: No New Focal Deficit, Other (Negative Babinski's) Psy/Mental Status: Alert, Normal Affect, Normal Mood. No: Anxious, Depressed, Agitated, Hallucinations, Withdrawal Symptoms - Patient Data Lab Results Last 24 hrs: Laboratory Results - last 24 hr 02/23/21 02/23/21 Range/Units 07:28 07:28 Sodium 139 (136-145) mmol/L Potassium 4.0 (3.5-5.1) mmol/L Chloride 107 (98-107) mmol/L Carbon Dioxide 23.1 (21.0-32.0) mmol/L BUN 13 (7-18) mg/dL Creatinine 0.67 (0.51-1.17) mg/dL Est Cr Clr Drug Dosing 68.96 mL/min Estimated GFR (MDRD) > 60 mL/min Glucose 87 (70-99) mg/dL Calcium 7.5 L (8.5-10.1) mg/dL Iron 15 L (50-175) ug/dL TIBC 219 L (250-450) ug/dL % Saturation 6.99965 Ferritin 248 (8-388) ng/mL Creatine Kinase 75 (26-308) U/L Creatine Kinase Index 0.5 (0.0-2.5) % CK-MB (CK-2) 0.40 (0.00-3.60) ng/mL Troponin I 0.000 (0.000-0.056) ng/mL NT-Pro-B Natriuret Pep 261 H (0-125) pg/mL Vitamin B12 2203 H (193-986) pg/mL Folate 22.3 (8.6-58.9) ng/mL Result Diagrams: 02/24/21 08:11 02/24/21 08:11 Sepsis Event Note - Evaluation Sepsis Screening Result: No Definite Risk - Focused Exam Vital Signs: Vital Signs Temp Pulse Resp BP BP Pulse Ox 02/24/21 07:47 136/71 02/24/21 02:00 37.2 C 74 18 122/62 96 - Problem List & Annotations (1) Abdominal pain SNOMED Code(s): 67711915 Code(s): R10.9 - UNSPECIFIED ABDOMINAL PAIN Status: Acute Priority: High Current Visit: Yes Onset Date: ~02/16/21 Qualifiers: Abdominal location: generalized Qualified Code(s): R10.84 - Generalized abdominal pain Annotation/Comment:: Patient admitted to [facility] on about 02/16/2021 with abdominal pain and obstipation with no evidence of constipation at this time. Magnesium supplementation with caution as above secondary to mild loose stools currently. The patient still does not feel that she was ready to go home at t his time secondary to nonspecific generalized weakness, dizziness, etc. with some dehydration and multiple electrolyte imbalances after recent treatment for her constipation at time of hospitalization as above. Symptoms have now significantly improved on 02/23 with patient initially considering transfer [facility]. She does now feel comfortable going home tomorrow with social science manager consultation during this hospitalization and patient already on [facility] home health. Meals on Wheels, transportation services, etc. have been set up by our certified social workers in health care. Abdominal pain has resolved with no nausea or emesis at this time, although patient did need some Zofran on 02/23 secondary to some nausea without emesis. She also had some nonspecific hot flashes at time of last IV Rocephin dose with no true signs of allergic reaction and continuation of this medical therapy for now. Secondary to refractory symptoms patient was changed from observation to inpatient/acute care status on 02/22. PT ordered on 02/22 secondary to her generalized weakness and chronic right-sided sciatica/low back pain with initial evaluation on 02/23 with physical therapy now releasing the patient for further home care. (2) CHF (congestive heart failure) SNOMED Code(s): 79971431 Code(s): I50.9 - HEART FAILURE, UNSPECIFIED Status: Chronic Priority: Medium Current Visit: Yes Onset Date: ~08/22/18 Qualifiers: Heart failure type: unspecified Heart failure chronicity: chronic Qualified Code(s): I50.9 - Heart failure, unspecified Annotation/Comment:: Adjusted diet accordingly including fluid restriction, etc. on 02/22. No chest pain or anginal type symptoms. Note mild CHF with pleural effusion by chest x-ray on 02/23 with IV Lasix therapy with caution secondary to her electrolyte imbalances at time of admission. No further echocardiogram, etc. secondary to her comfort care status. The patient has been having a thoracentesis on an every [address] scan of the chest and follow-up appointment with Dr. Serna at [facility] already scheduled for 03/03 by patient history. Repeat blood work and x-rays on 02/25. (3) COPD (chronic obstructive pulmonary disease) SNOMED Code(s): 90127031 Code(s): J44.9 - CHRONIC OBSTRUCTIVE PULMONARY DISEASE, UNSPECIFIED Status: Chronic Priority: Medium Current Visit: Yes Qualifiers: COPD type: emphysema Emphysema type: panlobular Qualified Code(s): J43.1 - Panlobular emphysema Annotation/Comment:: Currently under therapy with fever on 02/22 and initiation of Rocephin therapy on 02/23. No bronchitic type symptoms or significant pneumonia by chest x-ray on 02/23, however note difficult to assess secondary to concomitant borderline CHF. Attempts to obtain a sputum specimen have been unsuccessful to this point. Repeat chest x-ray on 02/25 as above. (4) Hypomagnesemia SNOMED Code(s): 787895898 Code(s): E83.42 - HYPOMAGNESEMIA Status: Acute Priority: High Current Visit: Yes Annotation/Comment:: IV sulfate given shortly after admission with normal magnesium level on 02/22 and 02/24. Initiated oral magnesium supplementation on 02/22. Previous leg cramps have completely resolved after correction of her multiple electrolyte imbalances. (5) Hypoalbuminemia SNOMED Code(s): 704387682 Code(s): E88.09 - [facility] DISORDERS OF PLASMA-PROTEIN METABOLISM, NEC Status: Chronic Priority: Medium Current Visit: Yes Onset Date: 08/22/18 Annotation/Comment:: Observe for now. (6) Hypocalcemia SNOMED Code(s): 7750489 Code(s): E83.51 - HYPOCALCEMIA Status: Chronic Priority: Medium Current Visit: Yes Annotation/Comment:: Adjusted calcium supplementation during this hospitalization with close observation by regular providers after discharge. (7) Anemia SNOMED Code(s): 418509487 Code(s): D64.9 - ANEMIA, UNSPECIFIED Status: Chronic Priority: Medium Current Visit: Yes Qualifiers: Anemia type: iron deficiency Iron deficiency anemia type: unspecified iron deficiency Qualified Code(s): D50.9 - Iron deficiency anemia, unspecified Annotation/Comment:: History of chronic anemia secondary to her chemotherapy. 1.5 g hemoglobin drop on 02/22 since admission possibly secondary to rehydration effect, however stable on 02/23. Newly diagnosed iron deficiency anemia with Blood work-up on 02/23 with normal folic acid and vitamin B12 levels. Iron sulfate therapy initiated on 02/23 with close follow-up by regular provider after discharge. No evidence of acute GI bleed, etc.. Consider repeat TIBC panel in about 4 weeks with continuation of iron sulfate therapy after discharge. (8) Hypertension SNOMED Code(s): 42469019 Code(s): I10 - ESSENTIAL (PRIMARY) HYPERTENSION Status: Chronic Priority: Medium Current Visit: Yes Qualifiers: Hypertension type: essential hypertension Qualified Code(s): I10 - Essential (primary) hypertension Annotation/Comment:: Blood pressures stable during this hospitalization although somewhat low and nonsymptomatic on . Continue to observe closely by her regular provider. (9) Peptic reflux disease SNOMED Code(s): 679151196 Code(s): K21.9 - GASTRO-ESOPHAGEAL REFLUX DISEASE WITHOUT ESOPHAGITIS Status: Chronic Priority: Low Current Visit: Yes Annotation/Comment:: Stable by history with history of hiatal hernia as above. Note additional history of pernicious anemia with normal vitamin B12 level on 02/23 02/23. (10) Weakness SNOMED Code(s): 38809353 Code(s): R53.1 - WEAKNESS Status: Chronic Priority: High Current Visit: Yes Annotation/Comment:: As above with history of metastic cancer. PT consultation ordered on 02/22 and completed as above. Continue strict fall precautions, walker use, etc. after discharge. (11) Hypokalemia SNOMED Code(s): 20767220 Code(s): E87.6 - HYPOKALEMIA Status: Chronic Priority: Medium Current Visit: Yes Annotation/Comment:: Returned hypokalemia on 02/24 secondary to aggressive IV Lasix therapy. Note severe initial hypokalemia, which was artif actual in nature secondary to insufficient blood sample. Potassium level normal on 02/22. Continue medication adjustments during this hospitalization with close follow-up by regular providers after discharge. (12) Comfort measures only status SNOMED Code(s): 19691502389676 Code(s): Z51.5 - ENCOUNTER FOR PALLIATIVE CARE Status: Chronic Priority: Medium Current Visit: Yes Annotation/Comment:: Continue comfort care. Prog nosis guarded secondary to multiple healthcare issues as above. - Problem List Review Problem List Initiated/Reviewed/Updated: Yes - My Orders Last 24 Hours: My Active Orders 02/23/21 10:38 CULTURE SPUTUM + SMEAR [RM] Routine 02/23/21 12:00 Pantoprazole [ProTONIX IV] 40 mg IVPUSH Q12H cefTRIAXone [Rocephin] 1 gm Sodium Chloride 0.9% [Normal Saline] 100 ml IV Q12H 02/23/21 17:30 Ferrous Sulfate 325 mg PO BIDMEALS 02/23/21 18:00 Dextromethorphan/guaiFENesin [Mucinex DM ER 600-30 MG] 1 tab PO BID Furosemide [Lasix] 40 mg IVPUSH BID 02/23/21 20:00 Calcium Carbonate [Tums Extra Strength] 1,500 mg PO BEDTIME 02/23/21 21:07 Ondansetron [Zofran ODT] 4 mg PO Q4H PRN 02/24/21 05:11 BASIC METABOLIC PANEL,BMP [CHEM] Routine CBC WITH AUTO DIFF [HEME] Routine MAGNESIUM [CHEM] Routine - Assessment Assessment:: As above. - Plan Plan:: As above. Extensive precautions were given to the patient, who is in agreement with the treatment plan. The patient does not feel she is ready to go home as above. The patient will require about 1-2 days of inpatient/acute care secondary to multiple health problems as above, although possible discharge to home tomorrow with home health, etc. as above. [facility] physician assumes care later this afternoon.
[2021-02-24 08:38] LABS: CHLORIDE,CL 106 mmol/L (98-107); SODIUM,NA 139 mmol/L (136-145)
[2021-02-24] MEDS: Sodium Chloride 0.9% 10 ML Syringe FLUSH PRN ×2 (11:08→17:26)
[2021-02-24] MEDS: cefTRIAXone 1 GM in Sodium Chloride 0.9% 100 ML IV SCH (11:08)
[2021-02-24] MEDS: Pantoprazole 40 MG Vial IVPUSH SCH (11:08)
[2021-02-24] MEDS: Potassium Chloride 10 MEQ Tab.ER PO SCH ×2 (11:57→17:23)
[2021-02-24] MEDS: Magnesium Oxide 400 MG Tab PO SCH (17:24)
[2021-02-24] MEDS: Simethicone 80 MG Tab.Chew PO PRN (17:49)
[2021-02-24] MEDS: Calcium Carbonate 750 MG Tab.Chew PO SCH (20:18)
[2021-02-24] MEDS: Ketorolac 15 MG/ML SDV IVPUSH PRN (21:24)
[2021-02-25] MEDS: Pantoprazole 40 MG Vial IVPUSH SCH ×2 (02:58→11:49)
[2021-02-25] MEDS: cefTRIAXone 1 GM in Sodium Chloride 0.9% 100 ML IV SCH ×2 (02:59→11:49)
[2021-02-25] MEDS: Sodium Chloride 0.9% 10 ML Syringe FLUSH PRN ×3 (08:10→12:34)
[2021-02-25] MEDS: Midodrine 5 MG Tab PO SCH (08:18)
[2021-02-25] MEDS: Doxazosin 2 MG Tab PO SCH (08:20)
[2021-02-25] MEDS: Cyanocobalamin (Vitamin B12) 1,000 MCG Tab PO SCH (08:20)
[2021-02-25] MEDS: Calcium Carbonate/Vitamin D3 625 MG-125 Unit Tab PO SCH ×2 (08:20→11:50)
[2021-02-25] MEDS: Furosemide 40 MG/4 ML VIAL IVPUSH SCH (08:21)
[2021-02-25] MEDS: Dextromethorphan/guaiFENesin 600-30 MG Tab.ER PO SCH (08:21)
[2021-02-25] MEDS: Multivitamin Tab PO SCH (08:21)
[2021-02-25] MEDS: Potassium Chloride 10 MEQ Tab.ER PO SCH ×2 (08:21→11:49)
[2021-02-25] MEDS: Ferrous Sulfate 325 MG Tab PO SCH (08:21)
[2021-02-25] MEDS: Cholecalciferol (Vitamin D3) 25 MCG Tab PO SCH (08:21)
[2021-02-25 08:56] LABS: CHLORIDE,CL 106 mmol/L (98-107); SODIUM,NA 141 mmol/L (136-145)
[2021-02-25] MEDS ORDERED: Calcium Carbonate 750 MG Tab.Chew PO PRN (09:02)
--- NOTE | 2021-02-25 11:43 | PCM.DCSUM1 ---
Discharge Summary - Hospital Course Brief History: Admitted for treatment of nause/vomiting/abdominal pain/muscle cramping. Noted to have low magnesium. Diagnosis: Stroke: No - Discharge Data Discharge Date: 02/25/21 Discharge Disposition: Home, Self-Care 01 Condition: Good - Referral to Home Health Primary Care Physician: Donya Cardenas NP - Discharge Diagnosis/Problem(s) (1) Vomiting and diarrhea SNOMED Code(s): 500131666 ICD Code: R11.10 - VOMITING, UNSPECIFIED; R19.7 - DIARRHEA, UNSPECIFIED Status: Acute Priority: High Current Visit: Yes Onset Date: 02/20/21 Problem Details: Improved after Zofran. Admitted for further observation and IV fluid replacement. (2) Abdominal pain SNOMED Code(s): 97963510 ICD Code: R10.9 - UNSPECIFIED ABDOMINAL PAIN Status: Acute Priority: High Current Visit: Yes Onset Date: ~02/16/21 Problem Details: Patient admitted to [place] on about 02/16/2021 with abdominal pain and obstipation with no evidence of constipation at this time. Magnesium supplementation with caution as above secondary to mild loose stools. The patient did not feel that she was ready to go home secondary to nonspecific generalized weakness, dizziness, etc. with some dehydration and multiple electrolyte imbalances after recent treatment for her constipation at time of hospitalization as above. Symptoms significantly improved on 02/23 with patient initially considering transfer to swing bed. She does now feel comfortable going home today with manager social consultation during this hospitalization and patient already on [facility] health. Meals on Wheels, transportation services, etc. have been set up by our social and political studies professor. Abdominal pain has resolved with no nausea or emesis at this time, although patient did need some Zofran on 02/23 secondary to some nausea without emesis. She also had some nonspecific hot flashes at time of last IV Rocephin dose with no true signs of allergic reaction and venita nuation of this medical therapy for now. Secondary to refractory symptoms patient was changed from observation to inpatient/acute care status on 02/22. PT ordered on 02/22 secondary to her generalized weakness and chronic right-sided sciatica/low back pain with initial evaluation on 02/23 with physical therapy now releasing the patient for further home care. Qualifiers: Abdominal location: generalized Qualified Code(s): R10.84 - Generalized abdominal pain (3) Hypomagnesemia SNOMED Code(s): 069935877 ICD Code: E83.42 - HYPOMAGNESEMIA Status: Acute Priority: High Current Visit: Yes Problem Details: IV sulfate given shortly after admission with normal magnesium level on 02/22 and 02/24. Initiated oral magnesium supplementation on 02/22. Previous leg cramps have completely resolved after correction of her multiple electrolyte imbalances. (4) Hypocalcemia SNOMED Code(s): 3541893 ICD Code: E83.51 - HYPOCALCEMIA Status: Chronic Priority: Medium Current Visit: Yes Problem Details: Adjusted calcium supplementation during this hospitalization with close observation by regular providers after discharge. (5) Hypothyroidism (acquired) SNOMED Code(s): 437961767 ICD Code: E03.9 - HYPOTHYROIDISM, UNSPECIFIED Status: Chronic Priority: Low Current Visit: No Onset Date: 08/22/18 Problem Details: Reported to be stable at this time. (6) CHF (congestive heart failure) SNOMED Code(s): 68332072 ICD Code: I50.9 - HEART FAILURE, UNSPECIFIED Status: Chronic Priority: Medium Current Visit: Yes Onset Date: ~08/22/18 Problem Details: Adjusted diet accordingly including fluid restriction, etc. on 02/22. No chest pain or anginal type symptoms. Note mild CHF with pleural effusion by chest x-ray on 02/23 with IV Lasix therapy with caution secondary to her electrolyte imbalances at time of admission. No further echocardiogram, etc. secondary to her comfort care status. The patient has been having a thoracentesis on an every [address] scan of the chest and follow-up appointment with Dr. Serna at [facility] already scheduled for 03/03 by patient history. Qualifiers: Heart failure type: unspecified Heart failure chronicity: chronic Qualified Code(s): I50.9 - Heart failure, unspecified (7) COPD (chronic obstructive pulmonary disease) SNOMED Code(s): 89955173 ICD Code: J44.9 - CHRONIC OBSTRUCTIVE PULMONARY DISEASE, UNSPECIFIED Status: Chronic Priority: Medium Current Visit: Yes Problem Details: Currently under therapy with fever on 02/22 and initiation of Rocephin therapy on 02/23. No bronchitic type symptoms or significant pneumonia by chest x-ray on 02/23, however note difficult to assess secondary to concomitant borderline CHF. Attempts to obtain a sputum specimen have been unsuccessful to this point. Repeat chest x-ray on 02/25 as above. Qualifiers: COPD type: emphysema Emphysema type: panlobular Qualified Code(s): J43.1 - Panlobular emphysema (8) Hypertension SNOMED Code(s): 72425031 ICD Code: I10 - ESSENTIAL (PRIMARY) HYPERTENSION Status: Chronic Priority: Medium Current Visit: Yes Problem Details: Blood pressures stable during this hospitalization although somewhat low and nonsymptomatic on . Continue to observe closely by her regular provider. Qualifiers: Hypertension type: essential hypertension Qualified Code(s): I10 - Essential (primary) hypertension (9) Hypoalbuminemia SNOMED Code(s): 771163582 ICD Code: E88.09 - OTH DISORDERS OF PLASMA-PROTEIN METABOLISM, NEC Status: Chronic Priority: Medium Current Visit: Yes Onset Date: 08/22/18 Problem Details: Observe for now. (10) Hypokalemia SNOMED Code(s): 70906769 ICD Code: E87.6 - HYPOKALEMIA Status: Chronic Priority: Medium Current Visit: Yes Problem Details: Returned hypokalemia on 02/24 secondary to aggressive IV Lasix therapy. Note severe initial hypokalemia, which was artifactual in nature secondary to insufficient blood sample. Potassium level normal on 02/22. Continue medication adjustments during this hospitalization with close follow-up by regular providers after discharge. (11) Metastatic breast cancer SNOMED Code(s): 711798119, 045438197 ICD Code: C50.919 - MALIGNANT NEOPLASM OF UNSP SITE OF UNSPECIFIED FEMALE BREAST Status: Chronic Priority: Low Current Visit: No Problem Details: Mets to liver/bone. Weakness/fatigue, cachexia. (12) Osteoarthritis SNOMED Code(s): 123919345 ICD Code: M19.90 - UNSPECIFIED OSTEOARTHRITIS, UNSPECIFIED SITE Status: Chronic Priority: Low Current Visit: No Problem Details: Stable by history Qualifiers: Osteoarthritis location: multiple joints Osteoarthritis type: primary Qualified Code(s): M89.49 - Other hypertrophic osteoarthropathy, multiple sites (13) Peptic reflux disease SNOMED Code(s): 678349129 ICD Code: K21.9 - GASTRO-ESOPHAGEAL REFLUX DISEASE WITHOUT ESOPHAGITIS Status: Chronic Priority: Low Current Visit: Yes Problem Details: Stable by history with history of hiatal hernia as above. Note additional history of pernicious anemia with normal vitamin B12 level on 02/23 02/23. (14) Anemia SNOMED Code(s): 450916183 ICD Code: D64.9 - ANEMIA, UNSPECIFIED Status: Chronic Priority: Medium Current Visit: Yes Problem Details: History of chronic anemia secondary to her chemotherapy. 1.5 g hemoglobin drop on 02/22 since admission possibly secondary to rehydration effect, however stable on 02/23. Newly diagnosed iron deficiency anemia with Blood work-up on 02/23 with normal folic acid and vitamin B12 levels. Iron sulfate therapy initiated on 02/23 with close follow-up by regular provider after discharge. No evidence of acute GI bleed, etc.. Consider repeat TIBC panel in about 4 weeks with continuation of iron sulfate therapy after di scharge. Qualifiers: Anemia type: iron deficiency Iron deficiency anemia type: unspecified iron deficiency Qualified Code(s): D50.9 - Iron deficiency anemia, unspecified (15) Comfort measures only status SNOMED Code(s): 66830613071279 ICD Code: Z51.5 - ENCOUNTER FOR PALLIATIVE CARE Status: Chronic Priority: Medium Current Visit: Yes Problem Details: Continue comfort care. Prognosis guarded secondary to multiple healthcare issues as above. (16) Weakness SNOMED Code(s): 05272228 ICD Code: R53.1 - WEAKNESS Status: Chronic Priority: High Current Visit: Yes Problem Details: As above with history of metastic cancer. PT consultation ordered on 02/22 and completed as above. Continue strict fall precautions, walker use, etc. after discharge. - Patient Summary/Data Consults: Consultations 02/22/21 11:54 PT Evaluation and Treatment [CONS] Routine Hospital Course: Patient received rehydration and magnesium supplementation as noted above. Received PT. Arranging Funeral Director consult to set up home health. Abdominal pain/nausea resolved. Released by PT. Patient feels improved enough to return home today. Patient started on Rocephin as precaution on 02/23, however no noted WBC elevation since day of admission, no symptoms suggestive of pneumonia. No obvious pneumonia on xrays but does have ongoing issues with pleural effusions. Radiology suspects atelectasis and not infectious iniltrates. UA did not show evidence of UTI. Antibiotics will not be continued after discharge. - Patient Instructions Diet: Usual Diet as Tolerated Fluid Restriction: 2000 mL Activity: As Tolerated Driving: May Drive Today Showering/Bathing: May Shower Notify Provider of: Fever, Increased Pain, Nausea and/or Vomiting Other/Special Instructions: Follow up with primary provider as scheduled. Make sure they recheck your magnesium/calcium/potassium levels. We have increased your magnesium dose. Follow up otherwise as needed if you have any problems. - Discharge Plan *PRESCRIPTION DRUG MONITORING PROGRAM REVIEWED*: Not Applicable *COPY OF PRESCRIPTION DRUG MONITORING REPORT IN PATIENT SANDY: Not Applicable Prescriptions/Med Rec: Ferrous Sulfate 325 mg PO BIDMEALS #30 tablet Magnesium Oxide 400 mg PO QPM #90 tablet Calcium Carbonate [Tums Extra Strength] 1,500 mg PO BEDTIME #60 tab.chew Home Medications: Home Meds Lactase [Lactaid] 3,000 unit PO ASDIRECTED PRN 01/19/19 [History] Calcium Carbonate/Vitamin D3 [Calcium 500-Vit D3 125 Caplet] 1 tab PO TID 02/08/19 [History] Cyanocobalamin (Vitamin B-12) [Vitamin B-12] 5,000 mcg PO QAM 02/08/19 [History] Doxazosin Mesylate [Cardura] 2 mg PO QAM 02/08/19 [History] Midodrine 2.5 mg PO BID 02/08/19 [History] Multivitamins [Tab-A-Tran] 1 tab PO QAM 02/08/19 [History] Cholecalciferol (Vitamin D3) [Vitamin D3] 1,000 unit PO DAILY 02/15/19 [History] Furosemide [Lasix] 40 mg PO BID@0800,1200 tablet 02/27/19 [Rx] Loperamide [Imodium AD] 2 mg PO Q4H PRN tablet 02/27/19 [Rx] Non-Formulary Medication [NF Drug] 2 each PO BID each 02/27/19 [Rx] Potassium Chloride [Klor-Con M20] 20 meq PO TID tab.er 02/27/19 [Rx] Simethicone 160 mg PO Q4H PRN tab.chew 02/27/19 [Rx] Biotin 5 mg PO DAILY 01/25/21 [History] Hydrocodone/Acetaminophen [Hydrocodone-Acetamin 5-325 mg] 1 each PO BEDTIME PRN 01/25/21 [History] Letrozole 2.5 mg PO DAILY 01/25/21 [History] Sodium Chloride 5% [Gabrielle 128 5% Ophth Soln] 1 drop EYEBOTH BID 02/24/21 [History] Sodium Chloride 5% [Gabrielle 128 5% Ophth Soln] 1 drop EYEBOTH Q4HR PRN 02/24/21 [History] Vit A/Vit C/Vit E/Zinc/Copper [Preservision] 1 each PO Q12HR 02/24/21 [History] Calcium Carbonate [Tums Extra Strength] 1,500 mg PO BEDTIME #60 tab.chew 02/25/21 [Rx] Ferrous Sulfate 325 mg PO BIDMEALS #30 tablet 02/25/21 [Rx] Magnesium Oxide 400 mg PO QPM #90 tablet 02/25/21 [Rx] Forms: ED Department Discharge Referrals: Donya Cardenas NP [Primary Care Provider] - - Discharge Summary/Plan Comment DC Time >30 min.: No - General Info Date of Service: 02/25/21 Admission Dx/Problem (Free Text: 1. Abdominal pain 2. Nausea and vomiting 3. CHF Subjective Update: Patient feels back to usual baseline Functional Status: Reports: Pain Controlled, Tolerating Diet, Ambulating, Urinating. Denies: New Symptoms - Review of Systems General: Reports: Weakness (chronic), Fatigue (chronic). Denies: Fever, Chills, Night Sweats HEENT: Reports: Other (no acute changes) Pulmonary: Denies: Shortness of Breath, Pleuritic Chest Pain, Cough, Sputum, Hemoptysis, Wheezing Cardiovascular: Denies: Chest Pain, Palpitations, Lightheadedness Gastrointestinal: Denies: Abdominal Pain, Constipation, Diarrhea, Melena, Nausea, Vomiting Genitourinary: Reports: No Symptoms Musculoskeletal: Reports: Other (no acute changes from baseline) Skin: Reports: No Symptoms Neurological: Reports: Other (no acute changes) Psychiatric: Reports: No Symptoms - Patient Data Vitals - Most Recent: Last Vital Signs Temp 36.4 C 02/25/21 09:00 Pulse 81 02/25/21 08:00 Resp 16 02/25/21 08:00 BP 131/68 02/25/21 08:20 Pulse Ox 97 02/25/21 08:00 Weight - Most Recent: 74.616 kg I&O - Last 24 hours: Intake & Output 0602/25/21 02/25/21 22:59 06:59 14:59 Intake Total 150 120 Balance 150 120 Lab Results - Last 24 hrs: Laboratory Results - last 24 hr 02/25/21 02/25/21 Range/Units 08:18 08:18 WBC 6.1 (4.0-10.2) K/uL RBC 3.72 L (3.77-5.09) M/uL Hgb 10.8 L (11.7-15.5) g/dL Hct 33.8 L (34.0-46.0) % MCV 90.9 (84.0-98.0) fL MCH 29.0 (28.2-33.3) pg MCHC 32.0 (31.7-36.0) g/dL RDW 13.1 (11.2-14.1) % Plt Count 200 (150-350) K/uL Neut % (Auto) 75.7 (45.0-80.0) % Lymph % (Auto) 12.4 (10.0-50.0) % [place] % (Auto) 9.0 (2.0-14.0) % Eos % (Auto) 2.6 (0.0-5.0) % Baso % (Auto) 0.3 (0.0-2.0) % Neut # (Auto) 4.63 (1.40-7.00) K/uL Lymph # (Auto) 0.76 (0.50-3.50) K/uL [place] # (Auto) 0.55 (0.00-1.00) K/uL Eos # (Auto) 0.16 (0.00-0.50) K/uL Baso # (Auto) 0.02 (0.00-0.20) K/uL Sodium 141 (136-145) mmol/L Potassium 3.5 (3.5-5.1) mmol/L Chloride 106 (98-107) mmol/L Carbon Dioxide 23.3 (21.0-32.0) mmol/L BUN 19 H (7-18) mg/dL Creatinine 0.71 (0.51-1.17) mg/dL Est Cr Clr Drug Dosing 65.08 mL/min Estimated GFR (MDRD) > 60 mL/min Glucose 114 H (70-99) mg/dL Calcium 7.6 L (8.5-10.1) mg/dL Total Bilirubin 0.4 (0.2-1.0) mg/dL AST 18 (15-37) U/L ALT 23 (12-78) U/L Alkaline Phosphatase 71 (46-116) IU/L Troponin I 0.000 (0.000-0.056) ng/mL NT-Pro-B Natriuret Pep 134 H (0-125) pg/mL Total Protein 6.4 (6.4-8.2) g/dL Albumin 2.6 L (3.4-5.0) g/dL Med Orders - Current: Current Medications Hydrocodone Bitart/Acetaminophen (Acetaminophen/Hydrocodone 325-5 Mg Tab) 1 tab PO BEDTIME PRN PRN Reason: Pain Calcium Carbonate (Calcium Carbonate/Vitamin D3 625 Mg-125 Unit Tab) 1 tab PO TID [facility] Last Admin: 02/25/21 08:20 Dose: 1 tab Documented by: Calcium Carbonate/Glycine (Calcium Carbonate 750 Mg Tab.Chew) 1,500 mg PO BEDTIME [facility] Last Admin: 02/24/21 20:18 Dose: 1,500 mg Documented by: Calcium Carbonate/Glycine (Calcium Carbonate 750 Mg Tab.Chew) 750 mg PO Q2HR PRN PRN Reason: Indigestion Last Admin: 02/25/21 09:22 Dose: 750 mg Documented by: Cholecalciferol (Cholecalciferol (Vitamin D3) 25 Mcg Tab) 25 mcg PO DAILY [facility] Last Admin: 02/25/21 08:21 Dose: 25 mcg Documented by: Cyanocobalamin (Cyanocobalamin (Vitamin B12) 1,000 Mcg Tab) 5,000 mcg PO QAM [facility] Last Admin: 02/25/21 08:20 Dose: 5,000 mcg Documented by: Doxazosin Mesylate (Doxazosin 2 Mg Tab) 2 mg PO QAM [facility] Last Admin: 02/25/21 08:20 Dose: 2 mg Documented by: Ferrous Sulfate (Ferrous Sulfate 325 Mg Tab) 325 mg PO BIDMEALS [facility] Last Admin: 02/25/21 08:21 Dose: 325 mg Documented by: Furosemide (Furosemide 40 Mg/4 Ml Vial) 40 mg IVPUSH BID [facility] Last Admin: 02/25/21 08:21 Dose: 40 mg Documented by: Guaifenesin/Dextromethorphan (Dextromethorphan/Guaifenesin 600-30 Mg Tab.Er) 1 tab PO BID [facility] Last Admin: 02/25/21 08:21 Dose: 1 tab Documented by: Heparin Sodium (Porcine) (Heparin Sodium 100 Units/Ml 5 Ml Syringe) 500 units FLUSH Q12H [facility] Last Admin: 02/25/21 02:58 Dose: 500 units Documented by: Heparin Sodium (Porcine) (Heparin Sodium 100 Units/Ml 5 Ml Syringe) 500 units FLUSH ASDIRECTED PRN PRN Reason: post port use Last Admin: 02/25/21 08:11 Dose: 500 units Documented by: Heparin Sodium (Porcine) (Heparin Sodium 100 Units/Ml 5 Ml Syringe) 500 units FLUSH BID [facility] Last Admin: 02/25/21 08:25 Dose: 500 units Documented by: Ceftriaxone Sodium 1 gm/ (Sodium Chloride) 100 mls @ 200 mls/hr IV Q12H [facility] Last Admin: 02/25/21 02:59 Dose: Not Given Documented by: Ketorolac Tromethamine (Ketorolac 15 Mg/Ml Sdv) 15 mg IVPUSH Q6H PRN PRN Reason: Pain Stop: 02/26/21 09:01 Last Admin: 02/24/21 21:24 Dose: 15 mg Documented by: Loperamide HCl (Loperamide 2 Mg Tab) 2 mg PO Q4H PRN PRN Reason: Diarrhea Last Admin: 02/22/21 23:02 Dose: 2 mg Documented by: Magnesium Oxide (Magnesium Oxide 400 Mg Tab) 400 mg PO QPM [facility] Last Admin: 02/24/21 17:24 Dose: 400 mg Documented by: Midodrine (Midodrine 5 Mg Tab) 2.5 mg PO BID [facility] Last Admin: 02/25/21 08:18 Dose: 2.5 mg Documented by: Multivitamins/Minerals/Vitamin C (Multivitamin Tab) 1 tab PO QAM [facility] Last Admin: 02/25/21 08:21 Dose: 1 tab Documented by: Non-Formulary Medication (Biotin [Biotin]) 5 mg PO DAILY [facility] Non-Formulary Medication (Lactase [Lactaid]) 3,000 unit PO ASDIRECTED PRN PRN Reason: Extra Lactose in Diet Non-Formulary Medication (Letrozole) 2.5 mg PO DAILY [facility] Non-Formulary Medication (Non-Formulary Medication [Nf Drug]) 2 each PO BID [facility] Ondansetron HCl (Ondansetron 4 Mg Tab.Dis) 4 mg PO Q4H PRN PRN Reason: Nausea/Vomiting Last Admin: 02/23/21 21:41 Dose: 4 mg Documented by: Pantoprazole Sodium (Pantoprazole 40 Mg Vial) 40 mg IVPUSH Q12H [facility] Last Admin: 02/25/21 02:58 Dose: 40 mg Documented by: Potassium Chloride (Potassium Chloride 10 Meq Tab.Er) 30 meq PO TID [facility] Last Admin: 02/25/21 08:21 Dose: 30 meq Documented by: Simethicone (Simethicone 80 Mg Tab.Chew) 160 mg PO Q4H PRN PRN Reason: Dyspepsia Last Admin: 02/24/21 17:49 Dose: 160 mg Documented by: Sodium Chloride (Sodium Chloride 0.9% 10 Ml Syringe) 10 ml FLUSH ASDIRECTED PRN PRN Reason: Port use Last Admin: 02/25/21 08:11 Dose: 10 ml Documented by: Discontinued Medications Furosemide (Furosemide 40 Mg Tab) 40 mg PO BID@0800,1200 [facility] Last Admin: 02/23/21 07:27 Dose: 40 mg Documented by: Heparin Sodium (Porcine) (Heparin Sodium 100 Units/Ml 5 Ml Syringe) 500 units FLUSH ASDIRECTED PRN PRN Reason: post port use Last Admin: 02/23/21 07:28 Dose: 500 units Documented by: Sodium Chloride (Normal Saline) 1,000 mls @ 999 mls/hr IV ASDIRECTED [facility] Last Admin: 02/21/21 06:27 Dose: 999 mls/hr Documented by: Potassium Chloride/Sodium Chloride (Normal Saline With 20 Meq Kcl) 1,000 mls @ 100 mls/hr IV ASDIRECTED [facility] Last Admin: 02/21/21 07:57 Dose: 100 mls/hr Documented by: Magnesium Sulfate/Dextrose 1 (gm/ Premix) 100 mls @ 100 mls/hr IV ONETIME ONE Stop: 02/21/21 08:48 Last Admin: 02/21/21 08:31 Dose: 100 mls/hr Documented by: Magnesium Sulfate/Dextrose 1 (gm/ Premix) 100 mls @ 100 mls/hr IV ONETIME ONE Stop: 02/21/21 10:59 Last Admin: 02/21/21 10:28 Dose: 100 mls/hr Documented by: Sodium Chloride (Normal Saline) 1,000 mls @ 75 mls/hr IV ASDIRECTED [facility] Last Admin: 02/22/21 08:13 Dose: 75 mls/hr Documented by: Non-Formulary Medication (Magnesium Oxide [Magnesium Oxide]) 250 mg PO QAM [facility] Ondansetron HCl (Ondansetron 4 Mg/2 Ml Sdv) 4 mg IVPUSH ONETIME ONE Stop: 02/21/21 06:12 Last Admin: 02/21/21 06:27 Dose: 4 mg Documented by: Ondansetron HCl (Ondansetron 4 Mg/2 Ml Sdv) 4 mg IM ONETIME ONE Stop: 02/21/21 09:31 Last Admin: 02/21/21 10:25 Dose: Not Given Documented by: Ondansetron HCl (Ondansetron 4 Mg/2 Ml Sdv) 4 mg IV ONETIME ONE Stop: 02/21/21 10:31 Last Admin: 02/21/21 10:28 Dose: 4 mg Documented by: Potassium Chloride (Potassium Chloride 20 Meq Tab.Er) 20 meq PO ONETIME ONE Stop: 02/21/21 07:22 Last Admin: 02/21/21 07:38 Dose: Not Given Documented by: Potassium Chloride (Potassium Chloride 20 Meq Tab.Er) 20 meq PO TID [facility] Last Admin: 02/24/21 07:47 Dose: 20 meq Documented by: Promethazine HCl (Promethazine 25 Mg/Ml Sdv) 25 mg IM ONETIME ONE Stop: 02/21/21 07:25 Last Admin: 02/21/21 07:58 Dose: 25 mg Documented by: - Exam General: Reports: Alert, Oriented, Cooperative, No Acute Distress HEENT: Reports: Pupils Equal, Pupils Reactive, EOMI, Mucous Membr. Moist/[place] Neck: Reports: Supple Lungs: Reports: Clear to Auscultation, Normal Respiratory Effort Cardiovascular: Reports: Regular Rate, Regular Rhythm GI/Abdominal Exam: Normal Bowel Sounds, Soft, Non-Tender, No Distention (Female) Exam: Deferred Rectal (Female) Exam: Deferred Back Exam: Denies: Muscle Spasm, Paraspinal Tenderness, Vertebral Tenderness Extremities: Non-Tender, Normal Capillary Refill Skin: Reports: Warm, Dry Neurological: Reports: No New Focal Deficit Psy/Mental Status: Reports: Alert, Normal Affect, Normal Mood
== END 2021-02-25 12:45 | disposition home or self-care (01) | DRG 641 ==
LOC: LL.ED 06:00 → LL.MS 07:05 → OBSVTOIN 02-22 18:24
PROVIDERS: ADMIT Emergency Medicine; ATTEND Emergency Medicine
DX: E83.42 Hypomagnesemia (principal); C78.7 Secondary malignant neoplasm of liver and intrahepatic bile duct; C79.51 Secondary malignant neoplasm of bone; J90 Pleural effusion, not elsewhere classified; R10.9 Unspecified abdominal pain; I42.9 Cardiomyopathy, unspecified; E86.0 Dehydration; E83.51 Hypocalcemia; E03.9 Hypothyroidism, unspecified; R10.84 Generalized abdominal pain; R11.2 Nausea with vomiting, unspecified; I50.9 Heart failure, unspecified; M54.9 Dorsalgia, unspecified; M19.90 Unspecified osteoarthritis, unspecified site; Z51.5 Encounter for palliative care; M54.41 Lumbago with sciatica, right side; D64.9 Anemia, unspecified; C50.911 Malignant neoplasm of unspecified site of right female breast; J43.1 Panlobular emphysema; I11.0 Hypertensive heart disease with heart failure; E88.09 Other disorders of plasma-protein metabolism, not elsewhere classified; E87.6 Hypokalemia; C50.919 Malignant neoplasm of unspecified site of unspecified female breast; M89.49 Other hypertrophic osteoarthropathy, multiple sites; K21.9 Gastro-esophageal reflux disease without esophagitis; D50.9 Iron deficiency anemia, unspecified; R53.1 Weakness; H54.7 Unspecified visual loss; J30.9 Allergic rhinitis, unspecified; J45.909 Unspecified asthma, uncomplicated; K80.20 Calculus of gallbladder without cholecystitis without obstruction; K44.9 Diaphragmatic hernia without obstruction or gangrene; R19.7 Diarrhea, unspecified; R33.9 Retention of urine, unspecified; M54.2 Cervicalgia; G89.29 Other chronic pain; M81.0 Age-related osteoporosis without current pathological fracture; M85.80 Other specified disorders of bone density and structure, unspecified site; Z88.6 Allergy status to analgesic agent; Z88.1 Allergy status to other antibiotic agents; Z91.012 Allergy to eggs; Z88.0 Allergy status to penicillin; Z88.2 Allergy status to sulfonamides; Z88.8 Allergy status to other drugs, medicaments and biological substances; Z79.899 Other long term (current) drug therapy; Z87.01 Personal history of pneumonia (recurrent); Z98.890 Other specified postprocedural states; Z17.0 Estrogen receptor positive status [ER+]; Z88.7 Allergy status to serum and vaccine
CPT/HCPCS: 36415; 71046; 74022; 80048; 80053; 81001; 82550; 82553; 82607; 82728; 82746; 83540; 83550; 83605; 83735; 83880; 84484; 85025; 93005; 96372; 96374; 96375; 97161-GP; 97530-GP; 99220; 99232; 99233; 99238; 99285-25; A9270-GY; C9113; J0696; J1642; J1885; J1940; J2405; J2550; J3475; J3480; J7030

== ENCOUNTER 2021-04-14 11:16 | Inpatient (IN) | payer MEDICARE, MEDICAID, OTHER ==
[2021-04-14] MEDS ORDERED: Sodium Chloride 5% Ophth Soln 15 ML Bottle EYEBOTH PRN (15:17)
[2021-04-14] MEDS ORDERED: Cyclobenzaprine 10 MG Tab PO PRN (15:44)
[2021-04-14] MEDS: oxyCODONE 5 MG Tab PO PRN ×2 (16:03→21:30)
[2021-04-14] MEDS ORDERED: Sodium Chloride 5% Ophth Soln 15 ML Bottle EYEBOTH SCH (18:00)
[2021-04-14] MEDS: Potassium Chloride 20 MEQ Tab.ER PO SCH (18:29)
[2021-04-14] MEDS: Acetaminophen 500 MG Tab PO SCH ×2 (18:29→23:47)
[2021-04-14] MEDS: Calcium Carbonate/Vitamin D3 625 MG-125 Unit Tab PO SCH (18:29)
[2021-04-14] MEDS ORDERED: Non-Formulary Medication 1 Each (Vit A/Vit C/Vit E/Zinc/Copper [Preservision] 1 EACH Table PO SCH (20:00)
[2021-04-15] MEDS: oxyCODONE 5 MG Tab PO PRN ×3 (05:02→20:23)
[2021-04-15] MEDS: Simethicone 80 MG Tab.Chew PO PRN ×2 (06:52→13:38)
[2021-04-15] MEDS: Famotidine 20 MG Tab PO SCH (07:41)
[2021-04-15] MEDS: Cholecalciferol (Vitamin D3) 25 MCG Tab PO SCH (07:41)
[2021-04-15] MEDS: Multivitamin Tab PO SCH (07:41)
[2021-04-15] MEDS: Calcium Carbonate/Vitamin D3 625 MG-125 Unit Tab PO SCH ×3 (07:41→17:05)
[2021-04-15] MEDS: Magnesium Oxide 400 MG Tab PO SCH (07:42)
[2021-04-15] MEDS: Potassium Chloride 20 MEQ Tab.ER PO SCH ×2 (07:43→17:05)
[2021-04-15] MEDS: Acetaminophen 500 MG Tab PO SCH ×2 (07:43→17:03)
[2021-04-15] MEDS ORDERED: Cyanocobalamin (Vitamin B12) 1,000 MCG Tab PO SCH (08:00)
[2021-04-15] MEDS: Ondansetron 4 MG Tab.DIS PO PRN ×2 (15:20→20:23)
[2021-04-15] MEDS: BIOTIN 10000 MCG PO SCH (15:29)
[2021-04-15] MEDS: Letrozole 2.5 MG Tablet**OWN MED PO SCH (20:24)
[2021-04-15] MEDS ORDERED: Metoclopramide 10 MG/2 ML SDV IVPUSH ONE (23:29)
[2021-04-16] MEDS: Acetaminophen 500 MG Tab PO SCH ×4 (00:05→23:51)
[2021-04-16] MEDS: BIOTIN 10000 MCG PO SCH (07:46)
[2021-04-16] MEDS: Potassium Chloride 20 MEQ Tab.ER PO SCH ×2 (07:47→17:19)
[2021-04-16] MEDS: Magnesium Oxide 400 MG Tab PO SCH (07:47)
[2021-04-16] MEDS: Famotidine 20 MG Tab PO SCH (07:48)
[2021-04-16] MEDS: Multivitamin Tab PO SCH (07:48)
[2021-04-16] MEDS: Cholecalciferol (Vitamin D3) 25 MCG Tab PO SCH (07:48)
[2021-04-16] MEDS: Calcium Carbonate/Vitamin D3 625 MG-125 Unit Tab PO SCH ×3 (07:48→17:19)
[2021-04-16] MEDS: CYANOCOBALAMIN 5000 MCG PO SCH (07:49)
[2021-04-16] MEDS: Ondansetron 4 MG Tab.DIS PO PRN ×2 (08:16→17:19)
[2021-04-16] MEDS: Metoclopramide 10 MG/2 ML SDV IVPUSH PRN (09:29)
[2021-04-16 10:00] LABS: CHLORIDE,CL 108 mmol/L (98-107); SODIUM,NA 143 mmol/L (136-145)
[2021-04-16] MEDS ORDERED: Iopamidol 612 MG/ML 100 ML Bottle IVPUSH ONE (11:14)
[2021-04-16] MEDS ORDERED: Iopamidol 612 MG/ML 100 ML Bottle ONE (11:17)
--- NOTE | 2021-04-16 11:59 | PCM.PN ---
- General Info Date of Service: 04/16/21 Admission Dx/Problem (Free Text): swingbed, recovery from abdominal surgery Subjective Update: contacted in the night and this morning for patient being post op, not eating well, having nausea and vomiting. 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 here for recovery. Has been up and about walking. Minimal pain with oxycodone, but will run out of post op order soon and takes one hydrocodone a day, sometimes two. She is taking in some food, decreased intake though. Last bowel movement was 04/14 am. passing small amount of gas. She has been taking zofran. Did take an immunologic before coming 04/14 from [place]. Functional Status: Reports: Pain Controlled - Review of Systems General: Reports: Appetite (decreased) HEENT: Reports: No Symptoms Pulmonary: Reports: No Symptoms Cardiovascular: Reports: No Symptoms Gastrointestinal: Reports: Abdominal Pain (controlled post op), Constipation, Nausea, Vomiting Genitourinary: Reports: No Symptoms Neurological: Reports: No Symptoms - Patient Data Vitals - Most Recent: Last Vital Signs Temp 37.1 C 04/16/21 08:00 Pulse 96 04/16/21 08:00 Resp 16 04/16/21 08:00 BP 135/70 04/16/21 08:00 Pulse Ox 97 04/16/21 08:00 Weight - Most Recent: 68.946 kg I&O - Last 24 Hours: Intake & Output 04/15/21 04/16/21 04/16/21 22:59 06:59 14:59 Intake Total 200 240 Output Total 300 200 Balance -300 200 40 Lab Results Last 24 Hours: Laboratory Results - last 24 hr 04/16/21 04/16/21 Range/Units 09:27 09:27 WBC 4.7 (4.0-10.2) K/uL RBC 3.94 (3.77-5.09) M/uL Hgb 11.1 L (11.7-15.5) g/dL Hct 35.3 (34.0-46.0) % MCV 89.6 (84.0-98.0) fL MCH 28.2 (28.2-33.3) pg MCHC 31.4 L (31.7-36.0) g/dL RDW 14.6 H (11.2-14.1) % Plt Count 201 (150-350) K/uL Neut % (Auto) 69.7 (45.0-80.0) % Lymph % (Auto) 15.4 (10.0-50.0) % [place] % (Auto) 11.8 (2.0-14.0) % Eos % (Auto) 2.7 (0.0-5.0) % Baso % (Auto) 0.4 (0.0-2.0) % Neut # (Auto) 3.30 (1.40-7.00) K/uL Lymph # (Auto) 0.73 (0.50-3.50) K/uL [place] # (Auto) 0.56 (0.00-1.00) K/uL Eos # (Auto) 0.13 (0.00-0.50) K/uL Baso # (Auto) 0.02 (0.00-0.20) K/uL Sodium 143 (136-145) mmol/L Potassium 3.5 (3.5-5.1) mmol/L Chloride 108 H (98-107) mmol/L Carbon Dioxide 24.5 (21.0-32.0) mmol/L Anion Gap 14.0 (7-15) meq/L BUN 16 (7-18) mg/dL Creatinine 0.72 (0.51-1.17) mg/dL Est Cr Clr Drug Dosing 66.66 mL/min Estimated GFR (MDRD) > 60 mL/min Glucose 88 (70-99) mg/dL Calcium 8.0 L (8.5-10.1) mg/dL Total Bilirubin 0.7 (0.2-1.0) mg/dL AST 21 (15-37) U/L ALT 35 (12-78) U/L Alkaline Phosphatase 77 (46-116) IU/L Total Protein 6.5 (6.4-8.2) g/dL Albumin 3.0 L (3.4-5.0) g/dL Med Orders - Current: Current Medications Acetaminophen (Acetaminophen 500 Mg Tab) 1,000 mg PO Q8HR SHANTHI Stop: 04/19/21 08:01 Last Admin: 04/16/21 07:49 Dose: 1,000 mg Documented by: Hydrocodone Bitart/Acetaminophen (Acetaminophen/Hydrocodone 325-10 Mg Tab) 1 tab PO Q6H PRN PRN Reason: Pain Calcium Carbonate (Calcium Carbonate/Vitamin D3 625 Mg-125 Unit Tab) 1 tab PO TID [facility] Last Admin: 04/16/21 07:48 Dose: 1 tab Documented by: Cholecalciferol (Cholecalciferol (Vitamin D3) 25 Mcg Tab) 25 mcg PO DAILY [facility] Last Admin: 04/16/21 07:48 Dose: 25 mcg Documented by: Cyclobenzaprine HCl (Cyclobenzaprine 10 Mg Tab) 5 mg PO TID PRN PRN Reason: Spasms Famotidine (Famotidine 20 Mg Tab) 20 mg PO DAILY [facility] Last Admin: 04/16/21 07:48 Dose: 20 mg Documented by: Heparin Sodium (Porcine) (Heparin Sodium 100 Units/Ml 5 Ml Syringe) 500 units FLUSH ASDIRECTED PRN PRN Reason: IV Use Last Admin: 04/16/21 09:30 Dose: 500 units Documented by: Magnesium Oxide (Magnesium Oxide 400 Mg Tab) 200 mg PO DAILY [facility] Last Admin: 04/16/21 07:47 Dose: 200 mg Documented by: Metoclopramide HCl (Metoclopramide 10 Mg/2 Ml Sdv) 10 mg IVPUSH Q6H PRN PRN Reason: Nausea Last Admin: 04/16/21 09:29 Dose: 10 mg Documented by: Multivitamins/Minerals/Vitamin C (Multivitamin Tab) 1 tab PO QAM [facility] Last Admin: 04/16/21 07:48 Dose: 1 tab Documented by: Biotin [Biotin] 10, 000 Mcg CapsuleOwn Med 0 unit PO DAILY [facility] Last Admin: 04/16/21 07:46 Dose: 10,000 unit Documented by: Lactase [Lactaid] 3, 000 Unit TabletOwn Med 3,000 unit PO ASDIRECTED PRN PRN Reason: Extra Lactose in Diet Letrozole 2.5 Mg (TabletOwn Med) 2.5 mg PO BEDTIME [facility] Last Admin: 04/15/21 20:24 Dose: 2.5 mg Documented by: Cyanocobalamin ( Vitamin B12) 5,000 Mcg TabOwn Med 5,000 each PO QAM [facility] Last Admin: 04/16/21 07:49 Dose: 5,000 each Documented by: Ondansetron HCl (Ondansetron 4 Mg Tab.Dis) 4 mg PO Q6H PRN PRN Reason: Nausea/Vomiting Last Admin: 04/16/21 08:16 Dose: 4 mg Documented by: Oxycodone HCl (Oxycodone 5 Mg Tab) 10 mg PO Q4HR PRN PRN Reason: Pain (moderate 4-6) Stop: 04/17/21 15:42 Last Admin: 04/15/21 20:23 Dose: 10 mg Documented by: Potassium Chloride (Potassium Chloride 20 Meq Tab.Er) 20 meq PO BID [facility] Last Admin: 04/16/21 07:47 Dose: 20 meq Documented by: Simethicone (Simethicone 80 Mg Tab.Chew) 160 mg PO Q4H PRN PRN Reason: Dyspepsia Last Admin: 04/15/21 13:38 Dose: 160 mg Documented by: Discontinued Medications Cyanocobalamin (Cyanocobalamin (Vitamin B12) 1,000 Mcg Tab) 5,000 mcg PO QAM [facility] Last Admin: 04/15/21 07:42 Dose: 5,000 mcg Documented by: Iopamidol (Iopamidol 612 Mg/Ml 100 Ml Bottle) 100 ml IVPUSH ONETIME ONE Stop: 04/16/21 11:15 Iopamidol (Iopamidol 612 Mg/Ml 100 Ml Bottle) Confirm Administered Dose 100 ml .ROUTE .STK-MED ONE Stop: 04/16/21 11:18 Metoclopramide HCl (Metoclopramide 10 Mg/2 Ml Sdv) 10 mg IVPUSH ONETIME ONE Stop: 04/15/21 23:30 Last Admin: 04/16/21 00:05 Dose: 10 mg Documented by: - Exam General: Alert, Oriented HEENT: Pupils Equal, EOMI Lungs: Clear to Auscultation, Normal Respiratory Effort Cardiovascular: Regular Rate, Regular Rhythm GI/Abdominal Exam: Tender (minimally), Abnormal Bowel Sounds (decreased to absent) Neurological: No New Focal Deficit Psy/Mental Status: Alert - Patient Data Lab Results Last 24 hrs: Laboratory Results - last 24 hr 04/16/21 04/16/21 Range/Units 09:27 09:27 WBC 4.7 (4.0-10.2) K/uL RBC 3.94 (3.77-5.09) M/uL Hgb 11.1 L (11.7-15.5) g/dL Hct 35.3 (34.0-46.0) % MCV 89.6 (84.0-98.0) fL MCH 28.2 (28.2-33.3) pg MCHC 31.4 L (31.7-36.0) g/dL RDW 14.6 H (11.2-14.1) % Plt Count 201 (150-350) K/uL Neut % (Auto) 69.7 (45.0-80.0) % Lymph % (Auto) 15.4 (10.0-50.0) % [place] % (Auto) 11.8 (2.0-14.0) % Eos % (Auto) 2.7 (0.0-5.0) % Baso % (Auto) 0.4 (0.0-2.0) % Neut # (Auto) 3.30 (1.40-7.00) K/uL Lymph # (Auto) 0.73 (0.50-3.50) K/uL [place] # (Auto) 0.56 (0.00-1.00) K/uL Eos # (Auto) 0.13 (0.00-0.50) K/uL Baso # (Auto) 0.02 (0.00-0.20) K/uL Sodium 143 (136-145) mmol/L Potassium 3.5 (3.5-5.1) mmol/L Chloride 108 H (98-107) mmol/L Carbon Dioxide 24.5 (21.0-32.0) mmol/L Anion Gap 14.0 (7-15) meq/L BUN 16 (7-18) mg/dL Creatinine 0.72 (0.51-1.17) mg/dL Est Cr Clr Drug Dosing 66.66 mL/min Estimated GFR (MDRD) > 60 mL/min Glucose 88 (70-99) mg/dL Calcium 8.0 L (8.5-10.1) mg/dL Total Bilirubin 0.7 (0.2-1.0) mg/dL AST 21 (15-37) U/L ALT 35 (12-78) U/L Alkaline Phosphatase 77 (46-116) IU/L Total Protein 6.5 (6.4-8.2) g/dL Albumin 3.0 L (3.4-5.0) g/dL Result Diagrams: 04/16/21 09:27 04/16/21 09:27 Sepsis Event Note - Evaluation Sepsis Screening Result: No Definite Risk - Focused Exam Vital Signs: Vital Signs Temp Pulse Resp BP Pulse Ox 04/16/21 08:00 37.1 C 96 16 135/70 97 - Problem List & Annotations (1) Nausea and vomiting SNOMED Code(s): 17541157 Code(s): R11.2 - NAUSEA WITH VOMITING, UNSPECIFIED Status: Acute Current Visit: Yes (2) Abdominal pain SNOMED Code(s): 18483213 Code(s): R10.9 - UNSPECIFIED ABDOMINAL PAIN Status: Acute Priority: High Current Visit: No Onset Date: ~02/16/21 Qualifiers: Abdominal location: generalized Qualified Code(s): R10.84 - Generalized abdominal pain Annotation/Comment:: recent surgery for duodenal stenosis with flat and upright with bowel dilatation. vomiting and minimal outputs. - Problem List Review Problem List Initiated/Reviewed/Updated: Yes - My Orders Last 24 Hours: My Active Orders 04/15/21 15:11 Ondansetron [Zofran ODT] 4 mg PO Q6H PRN 04/15/21 20:14 Acetaminophen/HYDROcodone [[place] 325-10 MG] 1 tab PO Q6H PRN 04/15/21 23:30 Implanted Port Access [RC] QSHIFT Heparin Sodium [Heparin Lock Flush 100 Units/ML] 500 units FLUSH ASDIRECTED PRN 04/16/21 Abdomen 2V AP Flat Upright [CR] Routine 04/16/21 09:16 Metoclopramide [Reglan] 10 mg IVPUSH Q6H PRN 04/16/21 11:02 Abdomen Pelvis w Cont [CT] Routine did order reglan which works better for her. Watched overnight. Checked labs and flat and upright this am. bowel dilation noted, vomiting again after eating. Keep npo. Ct abdomen and pelvis with IV contrast to look for obstruction versus ileus. - Plan Plan:: CT scan of the abdomen pelvis without obstruction, appears to be ileus with mainly the colon. bony metastasis noted. surgery site looks good, no small bowel dilatation. discussed with radiologist. Appears to be ileus. Offered patient clear liquids until bowel movement and agrees, offered glycerin supposi tory and increased ambulation and agrees. Is starting to have increased gas passage. Will monitor as needed. Hand off back to PCP tomorrow.
[2021-04-16] MEDS: Acetaminophen/HYDROcodone 325-10 MG Tab PO PRN (21:02)
[2021-04-16] MEDS: Letrozole 2.5 MG Tablet**OWN MED PO SCH (21:02)
[2021-04-17] MEDS: Magnesium Oxide 400 MG Tab PO SCH (07:35)
[2021-04-17] MEDS: Famotidine 20 MG Tab PO SCH (07:35)
[2021-04-17] MEDS: Potassium Chloride 20 MEQ Tab.ER PO SCH ×2 (07:36→17:17)
[2021-04-17] MEDS: Multivitamin Tab PO SCH (07:36)
[2021-04-17] MEDS: Acetaminophen 500 MG Tab PO SCH ×3 (07:37→23:54)
[2021-04-17] MEDS: Calcium Carbonate/Vitamin D3 625 MG-125 Unit Tab PO SCH ×3 (07:37→17:17)
[2021-04-17] MEDS: Cholecalciferol (Vitamin D3) 25 MCG Tab PO SCH (07:37)
[2021-04-17] MEDS: BIOTIN 10000 MCG PO SCH (07:43)
[2021-04-17] MEDS: CYANOCOBALAMIN 5000 MCG PO SCH (07:44)
[2021-04-17] MEDS: Acetaminophen/HYDROcodone 325-10 MG Tab PO PRN (20:36)
[2021-04-17] MEDS: Letrozole 2.5 MG Tablet**OWN MED PO SCH (20:36)
[2021-04-18] MEDS: Magnesium Oxide 400 MG Tab PO SCH (08:48)
[2021-04-18] MEDS: Famotidine 20 MG Tab PO SCH (08:49)
[2021-04-18] MEDS: Potassium Chloride 20 MEQ Tab.ER PO SCH ×2 (08:49→17:32)
[2021-04-18] MEDS: Calcium Carbonate/Vitamin D3 625 MG-125 Unit Tab PO SCH ×3 (08:49→17:32)
[2021-04-18] MEDS: Cholecalciferol (Vitamin D3) 25 MCG Tab PO SCH (08:49)
[2021-04-18] MEDS: Multivitamin Tab PO SCH (08:49)
[2021-04-18] MEDS: BIOTIN 10000 MCG PO SCH (08:49)
[2021-04-18] MEDS: CYANOCOBALAMIN 5000 MCG PO SCH (08:50)
[2021-04-18] MEDS: Acetaminophen 500 MG Tab PO SCH ×3 (08:50→23:54)
[2021-04-18] MEDS: Metoclopramide 10 MG/2 ML SDV IVPUSH PRN (10:56)
--- NOTE | 2021-04-18 14:02 | PCM.HP.2 ---
H&P History of Present Illness - General Date of Service: 04/14/21 Admit Problem/Dx: status post gastroduodenostomy. Source of Information: Patient, Old Records History Limitations: Reports: No Limitations - History of Present Illness Initial Comments - Free Text/Narative: This is a 75-year-old female patient that is brought to the [facility] from [facility] in [place]. Patient currently is being treated for metastatic breast cancer with chemotherapy. She does have a left Port-A-Cath in place that her chemotherapy is delivered through. On March 31 she started having severe abdominal pain. She went to the emergency room and had a CT of the abdomen which showed gallstones, cirrhosis and thickening of the duodenal labs. 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 Eventually on April 07 the patient did undergo laparoscopic robotic gastroduodenostomy. Tima rice was on TPN for nutritional support at first. She was able to tolerate food after a few days. TPN was discontinued and her diet was advanced. Physical therapy and Occupational Therapy were initiated. Patient was improving well so then she was arranged to be transported here for swing bed admission. Patient's pain has been controlled with oxycodone. She is able to eat without difficulty. Onset of Symptoms: Reports: Unknown/Unsure Location: Reports: Abdomen Abdomen Pain Score (Numeric/FACES): 3 - Related Data Allergies/Adverse Reactions: Allergies Allergy/AdvReac Type Severity Reaction Status Date / Time anastrozole [From Arimidex] Allergy Rash Verified 04/14/21 16:53 aspirin Allergy Tachycardia Verified 02/21/21 10:42 ciprofloxacin [From Cipro] Allergy Other Verified 02/21/21 10:42 diphenhydramine Allergy Other Verified 02/21/21 10:42 [From Benadryl] egg Allergy Other Verified 02/21/21 10:42 Influenza Virus Vaccines Allergy Other Verified 02/21/21 10:42 lactose Allergy Abdominal Verified 02/21/21 10:42 Cramps montelukast [From Singulair] Allergy Other Verified 02/21/21 10:42 nitrofurantoin Allergy Rash Verified 02/21/21 10:42 [From Macrodantin] Penicillins Allergy Rash Verified 02/21/21 10:42 pseudoephedrine Allergy Other Verified 02/21/21 10:42 Sulfa (Sulfonamide Allergy Rash Verified 02/21/21 10:42 Antibiotics) tetracycline Allergy Rash Verified 02/21/21 10:42 Home Medications: Home Meds Lactase [Lactaid] 3,000 unit PO ASDIRECTED PRN 01/19/19 [History] Calcium Carbonate/Vitamin D3 [Calcium 500-Vit D3 125 Caplet] 1 tab PO TID 02/08/19 [History] Cyanocobalamin (Vitamin B-12) [Vitamin B-12] 5,000 mcg PO QAM 02/08/19 [History] Multivitamins [Tab-A-Tran] 1 tab PO QAM 02/08/19 [History] Cholecalciferol (Vitamin D3) [Vitamin D3] 1,000 unit PO DAILY 02/15/19 [History] Simethicone 160 mg PO Q4H PRN tab.chew 02/27/19 [Rx] Letrozole 2.5 mg PO DAILY 01/25/21 [History] Biotin 200 unit PO DAILY 04/14/21 [History] Cyclobenzaprine [Flexeril] 5 mg PO TID PRN 04/14/21 [History] Magnesium 250 mg PO DAILY 04/14/21 [History] Potassium Chloride [Klor-Con M20] 20 meq PO BID 04/14/21 [History] Famotidine 20 mg PO DAILY 30 Days #30 04/21/21 [Rx] Furosemide [Lasix] 40 mg PO DAILY 90 Days #180 tab 04/21/21 [Rx] Metoclopramide HCl 5 mg PO BID #30 tablet 04/21/21 [Rx] Ondansetron [Zofran ODT] 4 mg PO Q6H PRN #30 tab.dis 04/21/21 [Rx] bisacodyL [Dulcolax] 5 mg PO DAILY PRN #30 tablet 04/21/21 [Rx] cephALEXin [Keflex] 500 mg PO Q8HR 9 Days cap 04/21/21 [Rx] Past Medical History HEENT History: Reports: Allergic Rhinitis, Impaired Vision, Sinusitis, Other (See Below) Other HEENT History: Patient wears glasses. Cardiovascular History: Reports: Cardiomyopathy, Heart Failure, High Cholesterol, Hypertension, Other (See Below) Other Cardiovascular History: Recurrent CHF including pleural effusions with cardiomegaly by chest x-rays. Chronic d-dimer elevation initially diagnosed on 08/22/18 with negative CTA of the chest as below. echocardiogram performed on Feb 04 2019 Respiratory History: Reports: Asthma, Bronchitis, Recurrent, COPD, Pneumonia, Recurrent, Other (See Below) Other Respiratory History: Asthma since childhood. COPD. Pleural effusion on right. Gastrointestinal History: Reports: Cholelithiasis, Hiatal Hernia, Other (See Below) Other Gastrointestinal History: Nonsymptomatic cholelithiasis. Genitourinary History: Reports: Retention, Urinary, UTI, Recurrent, Other (See Below) Other Genitourinary History: History of acute urinary retention in 2009 however nonproblematic at this time. Benign bilateral renal cysts. TRAIN ATTENDANT History: Reports: Dysfunctional Uterine Bleeding, Fibroids, Polycystic Ovaries, , Prolapsed Uterus Other OB/BYN History: Menopause at age 51. Full term without complications during pregnancies or deliveries. Recurrent nonspecific right-sided lymphatic mastitis with bilateral fibrocystic breast disease. Musculoskeletal History: Reports: Arthritis, Back Pain, Chronic, Fracture, Neck Pain, Chronic, Osteoarthritis, Osteoporosis, Other (See Below) Other Musculoskeletal History: History of non-diagnosed silent right ankle fracture at about age 17. Osteoporosis by x-rays. Kyphosis. Neurological History: Reports: Concussion, Head Trauma, Other (See Below) Other Neuro History: Concussion at age 19. Psychiatric History: Reports: None Endocrine/Metabolic History: Reports: Hypothyroidism, Osteopenia, Osteoporosis, Other (See Below) Other Endocrine/Metabolic History: Hypokalemia. Hyponatremia. Mild borderline hypothyroidism and goiter diagnosed on 08/22/18. Hematologic History: Reports: Anemia, B12 Deficiency, Other (See Below) Other Hematologic History: Severe pernicious anemia. History of leukopenia. Immunologic History: Reports: Immunosuppression, Other (See Below) Other Immunologic History: Breast cancer as below. Oncologic (Cancer) History: Reports: Breast, Metastatic, Other (See Below) Other Oncologic History: Right-sided [place] grade 2 estrogen and progesterone positive invasive ductal breast cancer including metastases to the liver and bone initially diagnosed on 08/23/18. Dermatologic History: Reports: Eczema - Infectious Disease History Infectious Disease History: Reports: Chicken Pox, Measles, Mumps - Past Surgical History Head Surgeries/Procedures: Reports: None HEENT Surgical History: Reports: Adenoidectomy, Oral Surgery, Tonsillectomy, Other (See Below) Other HEENT Surgeries/Procedures: [place] teeth extraction 4 at age 33 with multiple additional teeth extractions. Tonsillectomy and adenoidectomy at age 7. Cardiovascular Surgical History: Reports: None Respiratory Surgical History: Reports: Thoracentesis Other Respiratory Surgeries/Procedures: Right-sided thoracentesis on 08/23/18 secondary to large right pleural effusion likely secondary to her breast cancer. GI Surgical History: Reports: Colonoscopy, EGD, Hernia, Inguinal, Other (See Below) Other GI Surgeries/Procedures: Umbilical hernia repair at about age 7. Colonoscopy on 11/11/08. EGD on 10/14/08. XI Davinci laparoscopic gastrojejunostomy bypass 04/07/21. Female Surgical History: Reports: Breast Biopsy, Tubal Ligation, Other (See Below) Other Female Surgeries/Procedures: Bilateral tubal ligation at age 34. Endocrine Surgical History: Reports: None Neurological Surgical History: Reports: None Musculoskeletal Surgical History: Reports: None Oncologic Surgical History: Reports: None Other Oncologic Surgeries/Procedures: As above. Dermatological Surgical History: Reports: Skin Biopsy, Other (See Below) - Past Imaging History Past Imaging History: Reports: CAT Scan, Ultrasound Social & Family History - Family History HEENT: Reports: None Cardiac: Reports: Arrhythmia, CAD, Hypertension, NE, Other (See Below) Other Cardiac Family History: Paternal grandmother with open heart surgery at age 42 for unknown reason with history of coronary artery disease and recurrent MIs with fatal NE at age 70. Father with fatal unknown type of arrhythmia at age 72 with previous history of NE in his early 70s. Hypertension in paternal grandmother. Respiratory: Reports: COPD, Other (See Below) Other Respiratory Family Hisory: Paternal grandfather with COPD with history of working as a [employer] and also tobacco use. GI: Reports: None : Reports: None OBGYN: Reports: Dysfunctional uterine bleeding, Other (See Below) Other OBGYN Family History: Mother with hysterectomy for probable dysfunctional uterine bleeding Musculoskeletal: Reports: Arthritis, Gout, Other (See Below) Other Musculoskeletal Family History: Maternal uncle with gout Neurological: Reports: CVA, Other (See Below) Other Neurological Family History: Maternal grandmother with recurrent CVAs in her 90s eventually fatal at age 96. Psychiatric: Reports: Anxiety, Depression, Other (See Below) Other Psychiatric Family History: Mother with anxiety depression disorder. Endocrine/Metabolic: Reports: Diabetes, type II, IDDM, Other (See Below) Other Endocrine/Metabolic Family History: Mother, maternal grandmother, and paternal grandmother with IDDM. Hematologic: Reports: None Immunologic: Reports: None Dermatologic: Reports: Psoriasis, Other (See Below) Other Dermatologic Family History: Father with psoriasis. Oncologic: Reports: Skin, Other (See Below) Other Oncologic Family History: Father with recurrent basal cell carcinomas. - Caffeine Use Caffeine Use: Reports: Coffee, Soda Caffeine Use Comment: 1 cup coffee per day, 1 Dr. 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) H&P Review of Systems - Review of Systems: Review Of Systems: See Below General: Reports: No Symptoms HEENT: Reports: No Symptoms Pulmonary: Reports: No Symptoms Cardiovascular: Reports: No Symptoms Gastrointestinal: Reports: Abdominal Pain Genitourinary: Reports: No Symptoms Musculoskeletal: Reports: No Symptoms Skin: Reports: Wound (5 lap sites) Psychiatric: Reports: No Symptoms Neurological: Reports: No Symptoms Hematologic/Lymphatic: Reports: No Symptoms Immunologic: Reports: No Symptoms Exam - Exam Exam: See Below - Vital Signs Vital Signs: Last Vital Signs Temp 98.7 F 04/18/21 08:00 Pulse 66 04/18/21 08:00 Resp 14 04/18/21 08:00 BP 127/80 04/18/21 08:00 Pulse Ox 98 04/18/21 08:00 Weight: 152 lb - Exam General: Alert, Oriented, Cooperative HEENT: EOMI, Pupils Equal, PERRLA Neck: Supple Lungs: Clear to Auscultation Cardiovascular: Regular Rate, Regular Rhythm, Normal S1, Normal S2 GI/Abdominal Exam: Normal Bowel Sounds, Soft, Tender (recent surgery) (Female) Exam: Deferred Rectal (Female) Exam: Deferred Back Exam: Normal Inspection, Full Range of Motion Extremities: Normal Inspection, Normal Range of Motion, Non-Tender, No Pedal Edema, Normal Capillary Refill Skin: Warm, Dry, Intact, Other Skin Alteration Location (Drawings Not To Scale): 1 - 5 lap incisions with glue Neurological: Cranial Nerves Intact, Reflexes Equal Bilateral Neuro Extensive - Mental Status: Alert, Oriented x3, Normal Mood/Affect, Normal Cognition, Memory Intact Neuro Extensive - Motor, Sensory, Reflexes: CN II-XII Intact, Normal Gait, Normal Reflexes Psychiatric: Alert, Normal Affect, Normal Mood - Patient Data Result Diagrams: 04/16/21 09:27 04/16/21 09:27 Sepsis Event Note - Evaluation Sepsis Screening Result: No Definite Risk - Focused Exam Vital Signs: Vital Signs Temp Pulse Resp BP Pulse Ox 04/18/21 08:00 98.7 F 66 14 127/80 98 *Q Meaningful Use (ADM) - VTE *Q VTE Criteria *Q: 6 VTE Mechanical Contraindications *Q: At Risk for Falls VTE Pharmacological Contraindications *Q: Risk of Bleeding VTE Anticoagulation Contraindications: Alternative TX Request PT - VTE Risk Assess *Q Each Risk Factor Represents 1 Point: History of prior major surgery less than 1 month Total Score 1 Point Risk Factors: 1 Each Risk Factor Represents 2 Points: Age 60 - 74 Years, Laparoscopic surgery greater than 45 minutes Total Score 2 Point Risk Factors: 4 Each Risk Factor Represents 3 Points: None Total Score 3 Point Risk Factors: 0 Each Risk Factor Represents 5 Points: None Total Score 5 Point Risk Factors: 0 Venous Thromboembolism Risk Factor Score *Q: 5 - Stroke *Q Stroke Criteria *Q: 8 Aspirin Contraindications Stroke *Q: Allergy Anticoagulation Contraindications Stroke *Q: Med Allergy/INTOL/Interac Antithrombotic Contraindications Stroke *Q: Med Allerg/Intol/Interact Thrombolytic/Fibrinolytic Contraindications Stroke *Q: Med Allerg/Intol/Interact Statin Contraindications Stroke *Q: Med Allerg/Intol/Interact Rehabilitation Assessment Contraindication *Q: Med allergy/intol/interac - AMI *Q AMI Criteria *Q: 2 Aspirin Contraindications AMI *Q: Med Allerg/Intol/Interact Thrombolytic/Fibrinolytic Contraindications IV (AMI) *Q: Med allerg/intol/interact Statin Contraindications AMI *Q: Med Allerg/Intol/Interact - Tobacco (TOB) Core Measure 1:1 Practical Counseling Performed: N/A - Problem List (1) Abdominal pain SNOMED Code(s): 24371581 ICD Code: R10.9 - UNSPECIFIED ABDOMINAL PAIN Status: Acute Priority: High Onset Date: ~02/16/21 Problem Details: Abdominal pain has essentially resolved with minimal tenderness on palpation. She is now having regular BM's. Qualifiers: Abdominal location: generalized Qualified Code(s): R10.84 - Generalized abdominal pain Problem List Initiated/Reviewed/Updated: Yes Orders Last 24hrs: Active Orders 24 hr Category Date Time Status Heparin Sodium [Heparin Lock Flush 100 Units/ML] Med 04/17/21 20:00 Active 500 units FLUSH BEDTIME Medication Orders Acetaminophen (Acetaminophen 500 Mg Tab) 1,000 mg PO Q8HR [facility] Stop: 04/19/21 08:01 Last Admin: 04/18/21 08:50 Dose: 1,000 mg Documented by: Admin: 04/17/21 23:54 Dose: 1,000 mg Documented by: Admin: 04/17/21 15:57 Dose: 1,000 mg Documented by: Admin: 04/17/21 07:37 Dose: 1,000 mg Documented by: Admin: 04/16/21 23:51 Dose: 1,000 mg Documented by: Admin: 04/16/21 15:51 Dose: 1,000 mg Documented by: Admin: 04/16/21 07:49 Dose: 1,000 mg Documented by: Admin: 04/16/21 00:05 Dose: 1,000 mg Documented by: Admin: 04/15/21 17:03 Dose: 1,000 mg Documented by: Admin: 04/15/21 07:43 Dose: 1,000 mg Documented by: Admin: 04/14/21 23:47 Dose: 1,000 mg Documented by: Admin: 04/14/21 18:29 Dose: Not Given Documented by: SHIVAM Hydrocodone Bitart/Acetaminophen (Acetaminophen/Hydrocodone 325-10 Mg Tab) 1 tab PO Q6H PRN PRN Reason: Pain Last Admin: 04/17/21 20:36 Dose: 1 tab Documented by: Admin: 04/16/21 21:02 Dose: 1 tab Documented by: JINA Calcium Carbonate (Calcium Carbonate/Vitamin D3 625 Mg-125 Unit Tab) 1 tab PO TID [facility] Last Admin: 04/18/21 13:05 Dose: Not Given Documented by: Admin: 04/18/21 08:49 Dose: 1 tab Documented by: Admin: 04/17/21 17:17 Dose: 1 tab Documented by: Admin: 04/17/21 11:35 Dose: 1 tab Documented by: Admin: 04/17/21 07:37 Dose: 1 tab Documented by: Admin: 04/16/21 17:19 Dose: 1 tab Documented by: Admin: 04/16/21 12:27 Dose: 1 tab Documented by: Admin: 04/16/21 07:48 Dose: 1 tab Documented by: Admin: 04/15/21 17:05 Dose: 1 tab Documented by: Admin: 04/15/21 11:32 Dose: 1 tab Documented by: Admin: 04/15/21 07:41 Dose: 1 tab Documented by: Admin: 04/14/21 18:29 Dose: 1 tab Documented by: SHIVAM Cholecalciferol (Cholecalciferol (Vitamin D3) 25 Mcg Tab) 25 mcg PO DAILY [facility] Last Admin: 04/18/21 08:49 Dose: 25 mcg Documented by: Admin: 04/17/21 07:37 Dose: 25 mcg Documented by: Admin: 04/16/21 07:48 Dose: 25 mcg Documented by: Admin: 04/15/21 07:41 Dose: 25 mcg Documented by: SHIVAM Cyclobenzaprine HCl (Cyclobenzaprine 10 Mg Tab) 5 mg PO TID PRN PRN Reason: Spasms Famotidine (Famotidine 20 Mg Tab) 20 mg PO DAILY [facility] Last Admin: 04/18/21 08:49 Dose: 20 mg Documented by: Admin: 04/17/21 07:35 Dose: 20 mg Documented by: Admin: 04/16/21 07:48 Dose: 20 mg Documented by: Admin: 04/15/21 07:41 Dose: 20 mg Documented by: SHIVAM Heparin Sodium (Porcine) (Heparin Sodium 100 Units/Ml 5 Ml Syringe) 500 units FLUSH ASDIRECTED PRN PRN Reason: IV Use Last Admin: 04/18/21 11:01 Dose: 500 units Documented by: Admin: 04/16/21 21:02 Dose: 500 units Documented by: Admin: 04/16/21 09:30 Dose: 500 units Documented by: Admin: 04/16/21 00:06 Dose: 500 units Documented by: JINA Heparin Sodium (Porcine) (Heparin Sodium 100 Units/Ml 5 Ml Syringe) 500 units FLUSH BEDTIME [facility] Last Admin: 04/17/21 20:37 Dose: 500 units Documented by: SHIVAM Magnesium Oxide (Magnesium Oxide 400 Mg Tab) 200 mg PO DAILY [facility] Last Admin: 04/18/21 08:48 Dose: 200 mg Documented by: Admin: 04/17/21 07:35 Dose: 200 mg Documented by: Admin: 04/16/21 07:47 Dose: 200 mg Documented by: Admin: 04/15/21 07:42 Dose: 200 mg Documented by: SHIVAM Metoclopramide HCl (Metoclopramide 10 Mg/2 Ml Sdv) 10 mg IVPUSH Q6H PRN PRN Reason: Nausea Last Admin: 04/18/21 10:56 Dose: 10 mg Documented by: Admin: 04/16/21 09:29 Dose: 10 mg Documented by: SHIVAM Multivitamins/Minerals/Vitamin C (Multivitamin Tab) 1 tab PO QAM [facility] Last Admin: 04/18/21 08:49 Dose: 1 tab Documented by: Admin: 04/17/21 07:36 Dose: 1 tab Documented by: Admin: 04/16/21 07:48 Dose: 1 tab Documented by: Admin: 04/15/21 07:41 Dose: 1 tab Documented by: SHIVAM Biotin [Biotin] 10, 000 Mcg CapsuleOwn Med 0 unit PO DAILY [facility] Last Admin: 04/18/21 08:49 Dose: 1 unit Documented by: Admin: 04/17/21 07:43 Dose: 10,000 unit Documented by: Admin: 04/16/21 07:46 Dose: 10,000 unit Documented by: Admin: 04/15/21 15:29 Dose: 10,000 unit Documented by: SHIVAM Lactase [Lactaid] 3, 000 Unit TabletOwn Med 3,000 unit PO ASDIRECTED PRN PRN Reason: Extra Lactose in Diet Last Admin: 04/18/21 08:47 Dose: 3,000 unit Documented by: Admin: 04/17/21 17:14 Dose: 3,000 unit Documented by: LUCÍA Letrozole 2.5 Mg (TabletOwn Med) 2.5 mg PO BEDTIME [facility] Last Admin: 04/17/21 20:36 Dose: 2.5 mg Documented by: Admin: 04/16/21 21:02 Dose: 2.5 mg Documented by: Admin: 04/15/21 20:24 Dose: 2.5 mg Documented by: JINA Cyanocobalamin ( Vitamin B12) 5,000 Mcg TabOwn Med 5,000 each PO QAM [facility] Last Admin: 04/18/21 08:50 Dose: 5,000 each Documented by: Admin: 04/17/21 07:44 Dose: 5,000 each Documented by: Admin: 04/16/21 07:49 Dose: 5,000 each Documented by: SHIVAM Ondansetron HCl (Ondansetron 4 Mg Tab.Dis) 4 mg PO Q6H PRN PRN Reason: Nausea/Vomiting Last Admin: 04/16/21 17:19 Dose: 4 mg Documented by: Admin: 04/16/21 08:16 Dose: 4 mg Documented by: Admin: 04/15/21 20:23 Dose: 4 mg Documented by: Admin: 04/15/21 15:20 Dose: 4 mg Documented by: SHIVAM Potassium Chloride (Potassium Chloride 20 Meq Tab.Er) 20 meq PO BID [facility] Last Admin: 04/18/21 08:49 Dose: 20 meq Documented by: Admin: 04/17/21 17:17 Dose: 20 meq Documented by: Admin: 04/17/21 07:36 Dose: 20 meq Documented by: Admin: 04/16/21 17:19 Dose: 20 meq Documented by: Admin: 04/16/21 07:47 Dose: 20 meq Documented by: Admin: 04/15/21 17:05 Dose: 20 meq Documented by: Admin: 04/15/21 07:43 Dose: 20 meq Documented by: Admin: 04/14/21 18:29 Dose: 20 meq Documented by: SHIVAM Simethicone (Simethicone 80 Mg Tab.Chew) 160 mg PO Q4H PRN PRN Reason: Dyspepsia Last Admin: 04/15/21 13:38 Dose: 160 mg Documented by: Admin: 04/15/21 06:52 Dose: 160 mg Documented by: SHIVAM Assessment/Plan Comment:: Patient seems to be doing well. Pain is controlled with oxycodone. Tolerating diet at this time. No changes to her orders. - Mortality Measure Prognosis:: Good
--- OUTSIDE RECORDS SUMMARY | 2021-04-18 15:00 | XMSREPORT ---
:1945 Author Organization [facility] s Address [facility] [place] [address] Care Team Providers Name Role Phone Provider, Attributed RESOURCE Attributed Provider Unavailab Krystyna Graham MD Primary Care Provider Reason for Visit Reason Comments Nausea Pt arrives with [place] se[place] after having nausea and vomiting for a while. Pt is a cancer pt and reciev es treatment here. No vomiting now, just naseous. Auth/Cert Status Reason Specialty Diagnoses / Procedures Referred By Armando avendaño Referred To Contact Encounter Details Date Type Department Care Team Description 03/31/2021 - [facility], Emergency Department [address] [place] [address] [phone] Duodenal 04/14/2021 Encounter Center [address] Sofía Martins, DO [address] [place] [address] [phone] obstruction [address] Favian Rubin MD [address] [place] [address] [phone] [place] [address] Keiry Valladares MD [address] [place] [address] [phone] Fe Bowie MD [address] [place], [place] [id number] Miguel Angel Mccauley MD [address] [place], [place] [id number] Allergies Active Allergy Reactions Severity Noted Date Comments Anastrozole Rash 04/06/2020 Aspirin Tachycardia 04/07/2013 Ciprofloxacin Unknown/Not Verified 03/13/2019 Influenza Vaccines Other (Specify in 08/23/2018 Para sethesia Comments) Milk/Dairy Products Stomach Pain 09/16/2018 Pt to se lf monitor. Nitrofurantoin Rash 04/07/2013 Penicillin Hives (High) High 04/07/[address], 2nd, and 3rd generat ion cephalosporins Montelukast Sodium Other (Specify in 08/22/2018 Loss of appetite Comments) Sulfa Drugs Other (Specify in 04/07/2013 Stiff join ts Comments) Tetracyclines Hives (High) High 04/07/2013 documented as of this encounter (statuses as of 04/14/2021) Medications Medication Sig Dispensed Refills Start End Date Status Date Multiple Vitamin Take 1 tablet 0 Active (MULTI-VITAMIN) by mouth 1 tablet time per day. Cyanocobalamin Take 5,000 mcg 0 Active (VITAMIN B-12) 5000 by mouth 1 MCG LOZG time per day lactase (LACTAID) Take 3,000 0 A ctive 3000 units TABS Units by mouth as needed for other (Specify) calcium Take 1 tablet 60 tablet 11 Active carbonate-vitamin D by mouth 3 9 (OSCAL 500 + VIT D) times a day 500 mg-200 unit with meals tabletIndications: Metastatic breast cancer (HCC), Bone metastasis (HCC) magnesium oxide 250 Take 250 mg by 0 Active MG TABS mouth 1 time per day simethicone Take 2 tablets 30 each 1 Act iraj (MYLICON, GAS-X) 80 (160 mg) by 9 MG CHEWIndications: mouth Every 4 Dyspepsia hours as needed for flatulence vitamin D3, Take 1 tablet 30 tablet 0 Acti ve cholecalciferol, (1,000 Units) 9 1000 unit by mouth 1 tabletIndications: time per day Hypocalcemia potassium chloride Take 1 tablet 90 tablet 0 Active (KLOR-CON M20) 20 (20 mEq) by 0 MEQ CR tablet mouth 2 times a day cyclobenzaprine Take 1 tablet 30 tablet 3 10/02/19 Active (FLEXERIL) 5 mg (5 mg) by 10 14 tabletIndications: mouth 3 times Back muscle spasm a day as needed for muscle spasm letrozole (FEMARA) Take 1 tablet 90 tablet 3 Active 2.5 mg (2.5 mg) by 1 tabletIndications: mouth 1 time Malignant neoplasm per day of overlapping sites of right breast in female, estrogen receptor positive (HCC) Biotin 27594 MCG Take 10,000 0 A ctive TABS mcg by mouth 1 time per day acetaminophen Take 2 tablets 0 04/19/20 A ctive (TYLENOL) 500 mg (1,000 mg) by 10 13 tabletIndications: mouth Every 8 Duodenal obstruction hours for 5 days oxyCODONE (OXY-IR) Take 1 tablet 12 tablet 0 0 Active 10 mg (10 mg) by 10 13 tabletIndications: mouth Every 4 Duodenal obstruction hours as needed for moderate pain for up to 3 days famotidine (PEPCID) Take 1 tablet 0 Active 20 mg (20 mg) by 1 tabletIndications: mouth 1 time Duodenal obstruction per day doxazosin (CARDURA) TAKE 1 TABLET 90 tablet 3 Discontinued 2 mg BY MOUTH 1 03 13 (Stop Ezequiel ing at tabletIndications: TIME PER DAY. Discharge) Essential hypertension prochlorperazine Take 1 tablet 50 tablet 3 04/01/20 Discontinued (COMPAZINE) 10 mg (10 mg) by 06 13 ( entry rep tabletIndications: mouth 4 times error) High risk for a day as chemotherapy-induced needed for infectious nausea or complication, vomiting Malignant neoplasm of overlapping sites of right breast in female, estrogen receptor positive (HCC) acetaminophen Take 1 tablet 30 tablet 0 04/01/20 Di scontinued (TYLENOL) 500 mg (500 mg) by 06 13 ( entry rep tablet mouth every 6 error) hours as needed for mild pain midodrine Take 1 tablet 60 tablet 4 04/13/20 Discon tinued (PROAMATINE) 2.5 mg (2.5 mg) by 0 21 (Stop Taking at tabletIndications: mouth 1 time Discharge) Hypotension, per day unspecified hypotension type furosemide (LASIX) Take 1 tablet 60 tablet 1 0 Discontinued 40 mg (40 mg) by 0 21 (Stop Ezequiel ing at tabletIndications: mouth 2 times Discharge) Malignant neoplasm a day of overlapping sites of right breast in female, estrogen receptor positive (HCC), Pleural effusion on right gabapentin Take 1 capsule 90 capsule 1 04/01/20 Dis continued (NEURONTIN) 100 mg (100 mg) by 0 21 (entry rep capsuleIndications: mouth 3 times error) Cancer associated a day pain doxycycline Take 1 capsule 20 capsule 0 04/01/20 Di scontinued (VIBRAMYCIN) 100 mg (100 mg) by 0 21 (entry rep capsuleIndications: mouth every 12 error) Cutaneous abscess of hours chest wall COLLAGEN PO Take by mouth 0 04/01/20 Disc ontinued 4 times a day 21 (entry rep error) HYDROcodone-acetamin Take 1 tablet 40 tablet 0 04/13 Discontinued ophen (NORCO) 5-325 by mouth every 1 21 (Stop Taking at mg 6 hours as Discharge ) tabletIndications: needed for Chronic Pain moderate pain or severe pain. 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 High risk for chemotherapy-induced infectious complica tion 01/09/2019 Recurrent pleural effusion on right 09/16/2018 Metastatic breast cancer 09/16/2018 Shortness of breath 2018 Pleural effusion on right 2018 Malignant neoplasm of overlapping sites of right breas t in female, 2018 estrogen receptor positive Liver metastasis 2018 Bone metastasis 2018 COPD (chronic obstructive pulmonary disease) 8 CHF (congestive heart failure) 08/22/2018 Osteoarthritis of right hip 03/18/2015 Hyperlipidemia 03/10/2015 Essential hypertension 12/24/2005 documented as of this encounter (statuses as of 04/14/2021) Resolved Problems Problem Noted Date Resolved Date 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 Never 03/31/2021 How many drinks containing alcohol do you have on a typical Not asked day when you are drinking? How often do you have six or more drinks on one occasion? Ne otoniel 03/31/2021 Sexually Active Control Partners Comments Never Sex Assigned at Date Recorded Not on file documented as of this encounter Last Filed Vital Signs Vital Sign Reading Time Taken Comments Blood Pressure 107/68 04/14/2021 7:30 AM CDT Pulse 76 04/14/2021 7:30 AM CDT Temperature 36.7 C (98.1 F) 04/14/2021 7:30 AM CDT Respiratory Rate 16 04/14/2021 7:30 AM CDT Oxygen Saturation 94% 04/14/2021 7:30 AM CDT Inhaled Oxygen Concentration - - Weight 76.7 kg (169 lb) 04/10/2021 5:00 AM CDT Height 170.2 cm (5' 7") 04/03/2021 1:28 PM CDT Body Mass Index 26.47 04/03/2021 1:28 PM CDT documented in this encounter Functional Status Functional Status Response Date of Assessment Is the person deaf or does he/she have serious difficulty No 02/09/2019 hearing? Is this person blind or does he/she have difficulty No 02/09/2019 seeing even when wearing glasses? Do you have difficulty with walking, balance, climbing No 04/03/2021 stairs, or had a fall in the [...] decisions? documented as of this encounter Discharge Summaries Not on filedocumented in this encounter Discharge Instructions Yanira Mcgrath RN - 04/12/2021 My [facility] Nurse: or Heart Failure Discharge Instructions Diet: Diet as ordered Follow instructions from our dietitian if one visited you Activity: Plan time every day for walking or other activity. If you feel tired and short of breath, stop and rest. Continue activity when ready. Follow guidelines given by cardiac rehab and nursing staff. Treatments/Self Care: Weigh yourself daily at the same time of the day and with the same amount of clothing. Write down your weight every day and keep this record. Avoid NSAIDs or Non-Steroidal Anti-Inflammatory Drugs (ie: Advil, Ibuprofen, Motrin, etc.) Contact Your Doctor If You Have Any of These Symptoms: Sudden weight gain of 2 pounds in a day or 5 pounds in a week. This is a sign of fluid build-up. Increased swelling in feet, ankles or legs. Worsening shortness of breath or trouble breathing at rest Having to sleep with more pillows or sitting up Frequent or worsening cough A decrease in amount of urine. Chest pain Confusion Questions about medications or other problems Review the Living Well with Heart Failure booklet for more information on caring for yourself or your loved one at home. AttachmentsThe following attachments cannot be sent through Care Everywhere. Heart Failure (Setswana)documented in this encounter Medications at Time of Discharge Medication Sig Dispensed Refills Start Date End Date acetaminophen (TYLENOL) Take 2 tablets 0 04/14/20 21 04/19/2021 500 mg tabletIndications: (1,000 mg) by mouth Duodenal obstruction Every 8 hours for 5 days oxyCODONE (OXY-IR) 10 mg Take 1 tablet (10 12 tablet 0 03/2404/16/2021 tabletIndications: mg) by mouth Every 4 Duodenal obstruction hours as needed for moderate pain for up to 3 days famotidine (PEPCID) 20 mg Take 1 tablet (20 0 tabletIndications: mg) by mouth 1 time Duodenal obstruction per day Biotin 85784 MCG TABS Take 10,000 mcg by 0 mouth 1 time per day letrozole (FEMARA) 2.5 mg Take 1 tablet (2.5 90 tablet 3 tabletIndications: mg) by mouth 1 time Malignant neoplasm of per day overlapping sites of right breast in female, estrogen receptor positive (HCC) cyclobenzaprine Take 1 tablet (5 mg) 30 tablet 3 09/27/2020 10/02/2021 (FLEXERIL) 5 mg by mouth 3 times a tabletIndications: Back day as needed for muscle spasm muscle spasm potassium chloride Take 1 tablet (20 90 tablet 0 02/12/2020 (KLOR-CON M20) 20 MEQ CR mEq) by mouth 2 tablet times a day vitamin D3, Take 1 tablet (1,000 30 tablet 0 02/16/2019 cholecalciferol, 1000 Units) by mouth 1 unit tabletIndications: time per day Hypocalcemia simethicone (MYLICON, Take 2 tablets (160 30 each 1 02/07 GAS-X) 80 MG mg) by mouth Every 4 CHEWIndications: hours as needed for Dyspepsia flatulence magnesium oxide 250 MG Take 250 mg by mouth 0 TABS 1 time per day calcium carbonate-vitamin Take 1 tablet by 60 tablet 11 11/22 D (OSCAL 500 + VIT D) 500 mouth 3 times a day mg-200 unit with meals tabletIndications: Metastatic breast cancer (HCC), Bone metastasis (HCC) lactase (LACTAID) 3000 Take 3,000 Units by 0 units TABS mouth as needed for other (Specify) Cyanocobalamin (VITAMIN Take 5,000 mcg by 0 B-12) 5000 MCG LOZG mouth 1 time per day Multiple Vitamin Take 1 tablet by 0 (MULTI-VITAMIN) tablet mouth 1 time per day. documented as of this encounter Progress Notes Miguel Angel Mccauley MD - 04/13/2021 1:34 PM CDT [facility] Chief Complaint: Patient admitted to the hospital on 03/31/2021 with complaints of abdominal discomfort, nausea, vomiting. Patient has a history of triple positive stage IV breast cancer. CT abdomen showed long segmentthickening of the proximal duodenum and underlying hepatitic cirrhosis and cholelithiasis. 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 Oncology and surgery teams were consulted and patient underwent gastrojejunostomy on April 07. Procedure was uneventful. Patient received TPN in the immediate postop period. Bowel function gradually improved to baseline. Patient tolerated diet. Oncology was on board during the hospital stay. Patient was started on Femara. Plan is to administer outpatient Herceptin and perjeta and discharge her to swing bed tomorrow. Assessment/Plan: 1. Acute versus subacute duodenal obstruction: Secondary to duodenal stenosis status post gastrojejunostomy. Bowel function improving. Tolerating diet. Off TPN. 2. Stage IV right-sided breast cancer: Management per oncology outpatient. 2. Postop urinary retention: Hawk catheter removed. Monitor with bladder scans 4. Severe protein calorie malnutrition: Improving. Wean off TPN. Advance diet 5. Liver cirrhosis: Monitor 6. Erosive gastropathy: Continue H2 blockers Disposition: Seems to be stable. Placement tomorrow after chemotherapy infusion DVT prophylaxis: Lovenox Patient chart, labs, medications reviewed. Subjective: No acute events was reported overnight. Tolerating diet. ROS: Patient denies any headache, dizziness, nausea, vomiting, chest pain, dyspnea, abdominal pain. Objective: Vital signs in last 24 hours: Vitals: 04/12/21 1505 04/12/21200004/13/21 0100 04/13/21 1047 BP: 117/82 115/70 99/59 116/63 Pulse: 76 96 69 74 Resp: 16 16 16 16 Temp: 98.8 F (37.1 C) 98.4 F (36.9 C) 98.4 F (36.9 C) 98.3 F (36.8 C) SpO2: 94% 97% 95% 100% Weight: Height: Weight change: Vitals Min/Max Last 24 Hours Vital Signs Min/Max (last 24 hours) Flowsheet Row Name Min Max Temp 98.3 F (36.8 C) 98.8 F (37.1 C) BP: Systolic 99 117 BP: Diastolic 59 82 Pulse 69 96 Resp 16 16 SpO2 94 % 100 % MAP (mm Hg) 71 mm Hg 83 mm Hg Intake and Output Last 24 Hours 04/12 0700 - 04/13 0659 In: 1368 Out: 950 Physical Exam: General Appearance: Alert, does not seem to be in distress Mental Status: Oriented 3 Chest: Good breath sounds bilaterally, no wheezing or crackles Heart: Normal rate and rhythm, normal S1-S2 Abdomen: Soft, bowel sounds heard Neurological: Speech at baseline, no obvious motor deficits noted Extremities: No pedal edema, no tenderness MD Miguel Angel Richardson MD Note was transcribed using Dragon voice to text recognition. Inadvertent word substitution and spelling errors may occur. Please page M.D. for any clarification. New Norwood MD - 04/12/2021 10:26 PM CDT 04/12/2021 Hematology/Oncology Daily Progress Note Sabrina Singleton is a 75yr old female admitted on 03/31/2021 9:56 AM. Impression / Plan Active Hospital Problems Diagnosis Date Noted Duodenal obstruction 03/31/2021 Resolved Hospital Problems No resolved problems to display. She has metastatic breast cancer ER positive HER-2 positive. We started her again on family yesterday. Tolerating it well. She had duodenal obstruction for which she underwent gastrojejunostomy bypass surgery. Oral intake has been gradually improving. Pain is decreased. Continue current supportive care. Continue Femara. Will start her back on Herceptin and Perjeta on Saturday to be given as outpatient therapy. Interval History She is feeling well. No abdominal distention or discomfort. Some pain at the surgical site. No constipation or diarrhea. Oral intake with solid food gradually improving. No nausea vomiting. No fever. Other review of system unremarkable. Medications Current Facility-Administered Medications Medication Dose Route Frequency Provider Last Rate Last Admin guaiFENesin (ROBITUSSIN) oral solution (100 mg/5 mL) 10 mL 10 mL Oral Every 6 hours prn Ann Huitron APRN-LEIGH ANN letrozole (FEMARA) tablet 2.5 mg 2.5 mg Oral daily New Serna MD 2.5 mg at 04/12/21 0957 oxyCODONE (OXY-IR) tablet 10 mg 10 mg Oral Every 4 hours prn Yousuf Franklin MD 10 mg at 04/12/21 1750 HYDROmorphone (DILAUDID) injection solution (conc: 1 mg/mL) 1 mg 1 mg IV Every 2 hours prn Yousuf Franklin MD senna-docusate sodium (SENOKOT-S;PERICOLACE) tablet 1 tablet 1 tablet Oral 2 times a day Yousuf Franklin MD 1 tablet at 04/11/21 0910 polyethylene glycol (MIRALAX) packet 1 packet 1 packet Oral 2 times a day prn Yousuf Franklin MD famotidine (PEPCID) IV solution 20 mg 20 mg IV Daily Miguel Angel Mccauley MD 20 mg at 04/12/21 0956 lactase (LACTAID) tablet 9,000 Units 9,000 Units Oral 3 times a day with meals Miguel Angel Mccauley MD 9,000 Units at 04/12/21 1730 scopolamine (TRANSDERM-SCOP) patch 1 patch 1 patch Transdermal Every 3 days Shannon Blunt DO 1 patch at 04/10/21 182 promethazine (PHENERGAN) tablet 25 mg 25 mg Oral Every 4 hours prn Echo Rivera MD 25 mgat 04/08/21 08 acetaminophen (TYLENOL) tablet 1,000 mg 1,000 mg Oral Every 8 hours Echo Rivera MD 1,000 mg at 04/12/212135 enoxaparin (LOVENOX) subcutaneous injection solution 40 mg 40 mg Subcutaneous Daily Shannon Blunt DO 40 mg at 04/12/211006 metoclopramide (REGLAN) inj soln 5 mg 5 mg IV 4 times a day Echo Rivera MD 5 mg at 04/12/212000 diphenhydrAMINE (BENADRYL) injection solution 12.5 mg 12.5 mg IV 1 time prn Juan Ramos APRN-SAM tiZANidine (ZANAFLEX) tablet 2 mg 2 mg Oral 3 times a day Dexter Russo Jr., MD 2 mg at 04/09/212112 hydrocortisone (HYTONE) 1 % cream affected area 2 times a day prn Yousuf Franklin MD LORazepam (ATIVAN) 2 mg/mL injection solution 1 mg 1 mg IV Bedtime prn Fe Bowie MD 1 mg at 04/12/212000 phenol (CHLORASEPTIC) 1.4 % liquid/spray 2 spray 2 spray Mouth/Throat Every 2 hours prn Keiry Valladares MD hydrALAZINE (APRESOLINE) injection solution 10 mg 10 mg IV Every 4 hours prn Lizz Mcduffie MD sodium chloride 0.9% flush (adult) 10 mL 10 mL IV 2 times a day and prn Lizz Mcduffie MD10 mL at 04/12/212002 nalOXone (NARCAN) injection solution (vial) 0.4 mg 0.4 mg Injection Every 2 minutes prn Lizz Mcduffie MD nalOXone (NARCAN) injection solution (vial) 0.2 mg 0.2 mg Injection Every 2 minutes prn Lizz Mcduffie MD melatonin tablet 3 mg 3 mg Oral Bedtime prn Lizz Mcduffie MD 3 mg at 03/31/212207 ondansetron (ZOFRAN ODT) dispersible tablet 4 mg 4 mg Oral 4 times a day prn Lizz Mcduffie MD And ondansetron (ZOFRAN) injection solution 4 mg 4 mg IV 4 times a day prn Lizz Mcduffie MD 4 mg at 04/09/21 0042 hEParin 100 units/ mL injection for heplock FLUSH 5 mL IV PRN per parameter Favian Rubin MD 500 Units at 03/31/21 1709 And sodium chloride 0.9% flush (adult) 10 mL 10 mL IV Daily and prn Favian Rubin MD 10 mL at04/12/21 1004 Physical Exam Vital Signs: Temp: 98.4 F (36.9 C) | BP: 115/70 | Pulse: 96 | Resp: 16 | Pain Ratin (out of 10) | Weight: 76.7 kg (169 lb) | O2 Device: Room Air O2 Flow Rate (L/min): 1 l/min | SpO2: 97 % Maximum Temperatures (last 24 hours) Temperature Maximum Max Temp 98.8 F (37.1 C) Vital Signs Min/Max (last 24 hours) Flowsheet Row Name Min Max Temp 98 F (36.7 C) 98.8 F (37.1 C) BP: Systolic 115 136 BP: Diastolic 70 87 Pulse 76 96 Resp 16 16 SpO2 94 % 97 % MAP (mm Hg) 83 mm Hg 90 mm Hg Wt Readings from Last 3 Encounters: 04/10/21 76.7 kg (169 lb) 03/24/21 72.4 kg (159 lb 9.6 oz) 03/03/21 73.5 kg (162 lb 1.6 oz) Intake and Output: 04/11 0700 - 04/12 0659 In: 1834 [Oral:1000] Out: 2049 [Urine:2049] General Appearance: alert,and in no distress Eyes: sclera anicteric HENT: no oral sores or thrush noted. Neck: supple, Lungs: no rales or rhonchi, equal air entry on both sides Heart: normal rate, normal S1, S2 Abdomen: soft, nontender, nondistended, Neurological: alert, oriented, no focal deficit Mental Status: normal mood, behavior Extremities: no pedal edema, Skin: no rashes, Labs Recent Labs 04/10/21 0604/11/21 0815 04/12/21 0721 WBC 6.1 5.9 5.2 HEMOGLOBIN 11.1* 10.4* 10.8* HEMATOCRIT 35.1 34.0* 34.3* PLTCOUNT 185 176 187 NEUTROABS 3.9 4.0 3.5 Recent Labs 04/10/21 0613 04/11/21 0815 04/12/21 0721 BUN 17 18 15 CREATSERUM 0.56* 0.59* 0.64 NA 138 139 137 POTASSIUM 4.1 4.1 4.1 CL 110 110 107 CO2 23 24 25 CA 8.1* 8.2* 8.4* PROTEINTOTAL 6.0 5.6* 5.8* ALBUMIN 3.2* 3.0* 3.1* ALKPHOS 70 75 78 AST 29 32 22 ALT 32 37 33 BILITOTAL 0.4 0.5 0.5 MAGNESIUM 2.1 2.1 2.1 New Serna MD [facility] Miguel Angel Butler MD - 04/12/2021 12:25 PM CDT [facility] Chief Complaint: Patient admitted to the hospital on 03/31/2021 with complaints of abdominal discomfort, nausea, vomiting. Patient has a history of triple positive stage IV breast cancer. CT abdomen showed long segmentthickening of the proximal duodenum and underlying hepatitic cirrhosis and cholelithiasis. 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 Oncology and surgery teams were consulted and patient underwent gastrojejunostomy on April 07. Procedure was uneventful. Assessment/Plan: 1. Acute versus subacute duodenal obstruction: Secondary to duodenal stenosis status post gastrojejunostomy. Bowel function improving. Had multiple loose bowel movements. Advancing diet. We will stop TPN today. Surgery team signed off. 2. Stage IV right-sided breast cancer: Management per oncology outpatient. 2. Postop urinary retention: Hawk catheter removed. Monitor with bladder scans 4. Severe protein calorie malnutrition: Improving. Wean off TPN. Advance diet 5. Liver cirrhosis: Monitor 6. Erosive gastropathy: Will put her on H2 blockers Disposition: Continue to monitor for improvement in bowel function and electrolytes. Possible discharge tomorrow to swing bed. DVT prophylaxis: Lovenox Patient chart, labs, medications reviewed. Subjective: Patient reported multiple loose bowel movements. No other acute events reported. ROS: Patient denies any abdominal pain, chest pain, dyspnea, headache, dizziness. Objective: Vital signs in last 24 hours: Vitals: 04/11/21 1437 04/11/21 1920 04/12/21 0100 04/12/21 0753 BP: 174/106 139/68 136/71 131/87 Pulse: 78 71 76 77 Resp: 18 18 16 16 Temp: 97.8 F (36.6 C) 98.5 F (36.9 C) 98 F (36.7 C) 98.3 F (36.8 C) SpO2: 95% 96% 96% 95% Weight: Height: Weight change: Vitals Min/Max Last 24 Hours Vital Signs Min/Max (last 24 hours) Flowsheet Row Name Min Max Temp 97.8 F (36.6 C) 98.5 F (36.9 C) BP: Systolic 131 174 BP: Diastolic 68 106 Pulse 71 78 Resp 16 18 SpO2 95 % 96 % MAP (mm Hg) 89 mm Hg 90 mm Hg Intake and Output Last 24 Hours 04/11 0700 - 04/12 0659 In: 1834 Out: 2049 Physical Exam: General Appearance: Alert, not in distress Mental Status: Oriented 3 Chest: Clear bilaterally, no crackles or wheezing Heart: Regular rate and rhythm, normal S1-S2 Abdomen: Soft, surgical wound under dressing, bowel sounds decreased Neurological: Each at baseline, no obvious motor deficits noted Extremities: No pedal edema, no tenderness MD Miguel Angel Richardson MD Note was transcribed using [employer] voice to text recognition. Inadvertent word substitution and spelling errors may occur. Please page M.D. for any clarification. [place] MD - 04/11/2021 9:41 PM CDT 04/11/2021 Hematology/Oncology Daily Progress Note Sabrina Singleton is a 75yr old female admitted on 03/31/2021 9:56 AM. Impression / Plan 1. Metastatic breast cancer. 2. Recent duodenal obstruction underwent gastrojejunostomy. Patient is able to eat now and oral intake improving. Surgical recovery satisfactory and postoperative course uneventful. Being followed by surgery. 3. Anemia and hypoalbuminemia. Continue supportive care. Restart patient on Femara tomorrow. We will plan to give her Herceptin and Perjeta on April 14 her scheduled date. Interval History Patient after surgery recovering well. Oral intake improving. Mild postoperative abdominal pain but stable. No nausea vomiting. No cough. No fever. Medications Current Facility-Administered Medications Medication Dose Route Frequency Provider Last Rate Last Admin TPN (parenteral nutrition (ADULTS AND CHILDREN 40kg or GREATER) IV daily Sarah Joshua MD 32.3mL/hr at 04/11/21 1802 New Bag at 04/11/21 1802 [START ON 04/12/2021] letrozole (FEMARA) tablet 2.5 mg 2.5 mg Oral daily New Serna MD oxyCODONE (OXY-IR) tablet 10 mg 10 mg Oral Every 4 hours prn Yousuf Franklin MD 10 mg at 04/11/21 1015 HYDROmorphone (DILAUDID) injection solution (conc: 1 mg/mL) 1 mg 1 mg IV Every 2 hours prn Yousuf Franklin MD senna-docusate sodium (SENOKOT-S;PERICOLACE) tablet 1 tablet 1 tablet Oral 2 times a day Yousuf Franklin MD 1 tablet at 04/11/21 0910 polyethylene glycol (MIRALAX) packet 1 packet 1 packet Oral 2 times a day prn Yousuf Franklin MD famotidine (PEPCID) IV solution 20 mg 20 mg IV Daily Miguel Angel Mccauley MD 20 mg at 04/11/21 1133 lactase (LACTAID) tablet 9,000 Units 9,000 Units Oral 3 times a day with meals Miguel Angel Mccauley MD 9,000 Units at 04/11/21 1712 scopolamine (TRANSDERM-SCOP) patch 1 patch 1 patch Transdermal Every 3 days Shannon Blunt DO 1 patch at 04/10/21 1828 promethazine (PHENERGAN) tablet 25 mg 25 mg Oral Every 4 hours prn Echo Rivera MD 25 mgat 04/08/21 0802 acetaminophen (TYLENOL) tablet 1,000 mg 1,000 mg Oral Every 8 hours Echo Rivera MD 1,000 mg at 04/11/21 1430 enoxaparin (LOVENOX) subcutaneous injection solution 40 mg 40 mg Subcutaneous Daily Shannon Blunt DO 40 mg at 04/11/21 0910 metoclopramide (REGLAN) inj soln 5 mg 5 mg IV 4 times a day Echo Rivera MD 5 mg at 04/11/21 1715 diphenhydrAMINE (BENADRYL) injection solution 12.5 mg 12.5 mg IV 1 time prn Juan Ramos APRN-SAM tiZANidine (ZANAFLEX) tablet 2 mg 2 mg Oral 3 times a day Dexter Russo Jr., MD 2 mg at 04/09/212112 hydrocortisone (HYTONE) 1 % cream affected area 2 times a day prn Yousuf Franklin MD LORazepam (ATIVAN) 2 mg/mL injection solution 1 mg 1 mg IV Bedtime prn Fe Bowie MD 1 mg at 04/11/21318 phenol (CHLORASEPTIC) 1.4 % liquid/spray 2 spray 2 spray Mouth/Throat Every 2 hours prn Keiry Valladares MD hydrALAZINE (APRESOLINE) injection solution 10 mg 10 mg IV Every 4 hours prn Lizz Mcduffie MD sodium chloride 0.9% flush (adult) 10 mL 10 mL IV 2 times a day and prn Lizz Mcduffie MD10 mL at 04/10/212022 nalOXone (NARCAN) injection solution (vial) 0.4 mg 0.4 mg Injection Every 2 minutes prn Lizz Mcduffie MD nalOXone (NARCAN) injection solution (vial) 0.2 mg 0.2 mg Injection Every 2 minutes prn Lizz Mcduffie MD melatonin tablet 3 mg 3 mg Oral Bedtime prn Lizz Mcduffie MD 3 mg at 03/31/212207 ondansetron (ZOFRAN ODT) dispersible tablet 4 mg 4 mg Oral 4 times a day prn Lizz Mcduffie MD And ondansetron (ZOFRAN) injection solution 4 mg 4 mg IV 4 times a day prn Lizz Mcduffie MD 4 mg at 04/09/21 0042 hEParin 100 units/ mL injection for heplock FLUSH 5 mL IV PRN per parameter Favian Rubin MD 500 Units at 03/31/21 1709 And sodium chloride 0.9% flush (adult) 10 mL 10 mL IV Daily and prn Favian Rubin MD 10 mL at04/08/21 0807 Physical Exam Vital Signs: Temp: 98.5 F (36.9 C) | BP: 139/68 | Pulse: 71 | Resp: 18 | Pain Ratin (out of 10) | Weight: 76.7 kg (169 lb) | O2 Device: Room Air O2 Flow Rate (L/min): 1 l/min | SpO2: 96 % Maximum Temperatures (last 24 hours) Temperature Maximum Max Temp 98.5 F (36.9 C) Vital Signs Min/Max (last 24 hours) Flowsheet Row Name Min Max Temp 97.4 F (36.3 C) 98.5 F (36.9 C) BP: Systolic 124 174 BP: Diastolic 68 106 Pulse 71 78 Resp 16 18 SpO2 95 % 96 % MAP (mm Hg) 89 mm Hg 89 mm Hg Wt Readings from Last 3 Encounters: 04/10/21 76.7 kg (169 lb) 03/24/21 72.4 kg (159 lb 9.6 oz) 03/03/21 73.5 kg (162 lb 1.6 oz) Intake and Output: 04/10 0700 - 04/11 0659 In: 2571.2 [Oral:305] Out: 1500 [Urine:1500] General Appearance: alert,and in no distress Eyes: sclera anicteric HENT: no oral sores or thrush noted. Neck: supple, Lungs: no rales or rhonchi, equal air entry on both sides Heart: normal rate, normal S1, S2 Abdomen: soft, nontender, nondistended, Neurological: alert, oriented, no focal deficit Mental Status: normal mood, behavior Extremities: no pedal edema, Skin: no rashes, Labs Recent Labs 04/09/21 0714 04/10/21 0613 04/11/21 0815 WBC 8.1 6.1 5.9 HEMOGLOBIN 10.8* 11.1* 10.4* HEMATOCRIT 34.8* 35.1 34.0* PLTCOUNT 186 185 176 NEUTROABS 5.8 3.9 4.0 Recent Labs 04/09/21 0714 04/10/21 0613 04/11/21 0815 BUN 20 17 18 CREATSERUM 0.60 0.56* 0.59* NA 137 138 139 POTASSIUM 4.3 4.1 4.1 CL 108 110 110 CO2 23 23 24 CA 8.0* 8.1* 8.2* PROTEINTOTAL 5.7* 6.0 5.6* ALBUMIN 3.2* 3.2* 3.0* ALKPHOS 58 70 75 AST 20 29 32 ALT 24 32 37 BILITOTAL 0.5 0.4 0.5 MAGNESIUM 2.3 2.1 2.1 New Serna MD [facility] Patricia Montoya, Dexter Mota MD - 04/11/2021 6:21 PM CDT She is doing very well. Tolerating a diet. Surgery team will sign off and be available as needed. Tai arrange follow up in 2-[address] Joshua. Nakul Russo DO Surgery Resident Pager [phone] 04/11/21 Miguel Angel Butler MD - 04/11/2021 1:50 PM CDT [facility] Chief Complaint: Patient admitted to the hospital on 03/31/2021 with complaints of abdominal discomfort, nausea, vomiting. Patient has a history of triple positive stage IV breast cancer. CT abdomen showed long segmentthickening of the proximal duodenum and underlying hepatitic cirrhosis and cholelithiasis. 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 Oncology and surgery teams were consulted and patient underwent gastrojejunostomy on April 07. Procedure was uneventful. Assessment/Plan: 1. Acute versus subacute duodenal obstruction: Secondary to duodenal stenosis status post gastrojejunostomy. Bowel function returning. Patient had a bowel movement. Advance diet as tolerated. Surgery team on board. Weaning off TPN. 2. Stage IV right-sided breast cancer: Management per oncology outpatient. 2. Postop urinary retention: Hawk catheter removed. Monitor with bladder scans 4. Severe protein calorie malnutrition: In the immediate postop state. Currently on TPN. Will aimto wean it off by tomorrow 5. Liver cirrhosis: Monitor 6. Erosive gastropathy: Will put her on H2 blockers Disposition: Awaiting improvement in bowel function. Anticipate possible discharge in 2-3 days. DVT prophylaxis: Lovenox Patient chart, labs, medications reviewed. Subjective: Patient reported a bowel movement yesterday. Denies any complaints at the moment. ROS: Patient denies any headache, dizziness, nausea, vomiting, chest, dyspnea, abdominal pain. Objective: Vital signs in last 24 hours: Vitals: 04/10/21 0933 04/10/21 1459 04/10/21 1958 04/11/21 0957 BP: 130/73 152/87 152/83 124/68 Pulse: 65 68 68 76 Resp: 16 16 16 16 Temp: 98.2 F (36.8 C) 98 F (36.7 C) 98.3 F (36.8 C) 97.4 F (36.3 C) SpO2: 97% 97% 97% 96% Weight: Height: Weight change: Vitals Min/Max Last 24 Hours Vital Signs Min/Max (last 24 hours) Flowsheet Row Name Min Max Temp 97.4 F (36.3 C) 98.3 F (36.8 C) BP: Systolic 124 152 BP: Diastolic 68 87 Pulse 68 76 Resp 16 16 SpO2 96 % 97 % MAP (mm Hg) 104 mm Hg 104 mm Hg Intake and Output Last 24 Hours 04/10 0700 - 04/11 0659 In: 2571.2 Out: 1500 Physical Exam: General Appearance: Alert, not in distress Mental Status: Oriented 3 Chest: Clear bilaterally, no crackles or wheezing Heart: normal rate, regular rhythm, normal S1, S2, no murmur Abdomen: Soft, bowel sounds heard but decreased Neurological: normal speech, no gross sensory or motor deficits noted Extremities: No pedal edema, no tenderness MD Miguel Angel Richardson MD Note was transcribed using [employer] voice to text recognition. Inadvertent word substitution and spelling errors may occur. Please page M.D. for any clarification. Yousuf Franklin MD - 04/11/2021 7:26 AM CDT [facility] Progress Note Sabrina Singleton Hospital day 11 Brief overview: Hospital Day 11, Post-Operative Day 4 s/p gastrojejunostomy. Sabrina Singleton is a 75yr femalewith triple-positive stage IV breast cancer. She was recently admitted with nausea,vomiting,and abdominal discomfort. On 03/31/2021, a CT was performed which demonstrated long segment circumferential thickening of the proximal duodenum as well as evidence of cholelithiasis and hepatic cirrhosis. 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 Biopsies and showed no evidence of carcinoma. She underwent gastrojejunostomy on 04/07/[address] Joshua. She tolerated the procedure well and there were no immediate complications.On POD#1, became more nauseous and was made NPO and started on scheduled Reglan as well as WAXER. Evening of POD#1, had urinary retention requiringreplacement of hawk. Slow return of bowel function over POD2- POD4. Weaning TPN. Hawk d/c'd POD3 and patient voids. Subjective: No acute events overnight. Some anxiety, rcvd At[place]. Nausea still present but continuing to improve Pain well controlled Denies fevers chills, chest pain, emesis, SOB Endorses flatus, one BM yesterday Tolerating full liquid diet Ambulating Urinating without difficulty Objective: Current Vital Signs Temp: 98.3 F (36.8 C) BP: 152/83 Pulse: 68 O2 Device: Room Air O2 Flow Rate (L/min): 1 l/min Resp: 16 Pain Ratin (out of 10) Weight: 76.7 kg (169 lb) SpO2: 97 % General: NAD, alert, cooperative HEENT: Normocephalic Heart: Normal rate, limbs warm and well perfused Chest: Normal rate, normal WOB, sats good on room air Abd: Abd soft, non-tender, incisions c/d/i. : Grossly normal Extremities: Right arm slightly swollen/edematous compared to left at baseline. Legs no edema lesionor deformity bilaterally I/O Intake/Output Summary (Last 24 hours) at 04/11/2021 0730 Last data filed at 04/11/2021 0449 Gross per 24 hour Intake 2571.2 ml Output 1500 ml Net 1071.2 ml Labs Lab Results Component Value Date WBC 6.1 04/10/2021 HEMOGLOBIN 11.1 (L) 04/10/2021 PLTCOUNT 185 04/10/2021 Lab Results Component Value Date NA 138 04/10/2021 POTASSIUM 4.1 04/10/2021 CL 110 04/10/2021 CO2 23 04/10/2021 BUN 17 04/10/2021 CREATSERUM 0.56 (L) 04/10/2021 GLUCOSE 127 (H) 04/10/2021 CA 8.1 (L) 04/10/2021 PHOSPHORUS 2.6 04/10/2021 MAGNESIUM 2.1 04/10/2021 ALBUMIN 3.2 (L) 04/10/2021 Lab Results Component Value Date ALKPHOS 70 04/10/2021 BILIDIRECT 0.3 02/10/2019 BILIINDIRECT 0.3 02/10/2019 BILITOTAL 0.4 04/10/2021 AST 29 04/10/2021 ALT 32 04/10/2021 Assessment: Sabrina Singleton is a 75yr old female patient who underwent gastrojejunostomy on 04/07/[address] Joshua. Overall she is doing well, recovering as anticipated. Acute urinary retention has resolved. PROBLEMS Malnutrition Deconditioning Hx subclavian DVT Plan Recommend continue Reglan. PO intake improving Recommend TPN continue at 1/2 total needs today as PO intake still inadequate (but improving). Recommend d/c maintenance NS. Recommend advance diet as tolerated. - Antibiotics: None - Encourage out of bed and ambulation - DVT ppx: SCDs, lovenox Consults PT/OT: is consulting. Has recommended short stint of rehab before home. Dispo: Likely rehab, possibly at swing bed in [place] Gerry Franklin MD Surgery Resident PGY1 04/11/21 Associated attestation - Sarah Joshua MD - 04/11/2021 4:29 PM CDT I discussed the patient with the resident and personally interviewed and examined the patient. I verified in the medical record all resident documentation/findings, including history, physical exam, and medical decision making, and I agree with the resident's documentation. Patient is doing well and tolerating a regular diet. She had a bowel movement yesterday and is currently passing flatus without difficulty. She can follow-up with me as an outpatient. She should also likely have a repeat upper endoscopy with duodenal biopsies sometime in the next 2-3 months. All her questions were answered to her satisfaction. Sarah Joshua MD, PhD, MPH, FACS, FSSO call or contact centre manager Division of Surgical Oncology Jose Pickens, MED STUDENT - 04/11/2021 7:00 AM CDT Surgery Progress Note Sabrina Valdez Lainey, 75F Hospital day 11, POD 4 s/p DaVinci laparoscopic gastrojejunostomy for duodenal obstruction. Overnight Events: No acute overnight events. Reports nausea still which is stable from yesterday however diet was advanced to full liquid. Required prn Ativan for some anxiousness S: Patient reports mild pain but is controlled on current regimen. Endorses flatus and had 1 small bowel movement overnight. FLD is tolerated, mild nausea endorsed however. Patient reports ambulating well. Urinating well with removal of hawk. O: Vitals: Vitals: 04/11/21 0957 BP: 124/68 Pulse: 76 Resp: 16 Temp: 97.4 F (36.3 C) SpO2: 96% 24h Intake and Output: Date 04/10/21699 - 04/11/2165804/11/21699 - 04/12/21 0659 Shift 2072-7940 6806-6148 24 Hour Total 3670-0826 2525-8005 24 Hour Total INTAKE Oral 305 305 200 200 P.O. 305 305 200 200 IV 545.2 1053 1598.2 I.V. 545.2 1053 1598.2 TPN 668 668 TPN 668 668 Shift Total 1518.2 1053 2571.2 200 200 OUTPUT Urine 425 241 0070 650 650 Post Void Cath Residual (mL) 350 350 Unmeasured Urine Occurrence 1 x 1 x Urine 509 770 8218 300 300 Stool Unmeasured Stool Occurrence 1 x 0 x 1 x 0 x 0 x Shift Total 451 384 1756 650 650 NET 918.2 153 1071.2 -450 -450 Weight (kg) 76.7 76.7 76.7 76.7 76.7 76.7 Gen: no acute distress, comfortable, resting in bed, mildly anxious CV: heart sounds normal, S1 and S2 present, no murmurs Lungs: chest rising symmetrically, lung sounds normal, no wheezes Abdomen: apprehensive to palpation but is soft, non-tender, non-distended. Incision sites are mildly tender, no erythema or swelling. Extremities: moving symmetrically, strength intact bilaterally and normal Significant Labs, Imaging, Microbiology: Reviewed Assessment: Sabrina Singleton is a 75 y.o. female patient who is 4 days post-op for gastrojejunostomy with Dr. Joshua for obstructed bowel. Plan: - Recommend 1/2 TPN needs today and wean fully as she tolerates a regular diet - Regular diet and advance as tolerated - Wean IVF as oral intake improves - Await return of bowel function - PT/OT --Recommending swing bed prior to home, appreciate recs. - Encourage frequent ambulation and out of bed - Incentive spirometer - Continue prn antiemetics with scheduled Reglan Disposition: per Medicine primary service, likely home or swing bed in [facility] - 04/10/2021 10:11 AM CDT TPN per Pharmacy Ms. Singleton is on day 9 of TPN per pharmacy Recent events/med changes : advance to CLD,wean tpn Plan for today is: To 1/2 macronutrients today, anticipate discontinuing TPN tomorrow after this newbag infused. Protein to 57.5 gm, CHo to 350 kcal, lipids to 300 kcal. TKcal to 880 in minimal fluid of 776ml over24 hrs Phosphate adjusted from 30 to 20 mMol to prevent interaction with the calcium in the reduced volume of 1/2 tpn All else the same Pharmacy will continue to monitor and if indicated, adjust daily per the Pharmacy and Therapeutics Committee approved TPN consult service policy. Thank you- Helen Palomo RPh Miguel Angel Butler MD - 04/10/2021 9:04 AM CDT [facility] Chief Complaint: Patient admitted to the hospital on 03/31/2021 with complaints of abdominal discomfort, nausea, vomiting. Patient has a history of triple positive stage IV breast cancer. CT abdomen showed long segmentthickening of the proximal duodenum and underlying hepatitic cirrhosis and cholelithiasis. 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 Oncology and surgery teams were consulted and patient underwent gastrojejunostomy on April 07. Procedure was uneventful. Assessment/Plan: 1. Acute versus subacute duodenal obstruction: Secondary to duodenal stenosis status post gastrojejunostomy. Management per surgery team. 2. Stage IV right-sided breast cancer: Management per oncology outpatient. 2. Postop urinary retention: Hawk catheter removed. Monitor 4. Severe protein calorie malnutrition: In the immediate postop state. Currently on TPN 5. Liver cirrhosis: Monitor 6. Erosive gastropathy: Will put her on H2 blockers Disposition: Awaiting improvement in bowel function DVT prophylaxis: Lovenox Patient chart, x-rays, EKG, labs, medications reviewed. Subjective: No acute events reported overnight. Passing gas but hasn't had a bowel movement yet since surgery. ROS: Patient denies any chest pain, dyspnea, abdominal pain, nausea, vomiting, headache or dizziness. Objective: Vital signs in last 24 hours: Vitals: 04/09/21 1913 04/09/21 2108 04/10/21 0100 04/10/21 0500 BP: 149/81 Pulse: 70 Resp: 16 16 16 Temp: 98.2 F (36.8 C) SpO2: 97% 98% 98% Weight: 76.7 kg (169 lb) Height: Weight change: Vitals Min/Max Last 24 Hours Vital Signs Min/Max (last 24 hours) Flowsheet Row Name Min Max Temp 98.2 F (36.8 C) 98.5 F (36.9 C) BP: Systolic 130 149 BP: Diastolic 69 81 Pulse 70 72 Resp 16 18 SpO2 96 % 98 % MAP (mm Hg) 100 mm Hg 100 mm Hg Intake and Output Last 24 Hours 04/09 0700 - 04/10 0659 In: 2681 Out: 2800 Physical Exam: General Appearance: alert, well appearing, and in no distress Mental Status: oriented to person, place, and time Chest: b/l good air entry, clear to auscultation, no wheezes, rales or rhonchi, symmetric air entry Heart: normal rate, regular rhythm, normal S1, S2, no murmur Abdomen: soft, surgical site under dressing, decreased bowel sounds noted Neurological: normal speech, no gross sensory or motor deficits noted Extremities: No pedal edema, no tenderness MD Miguel Angel Richardson MD Note was transcribed using Dragon voice to text recognition. Inadvertent word substitution and spelling errors may occur. Please page M.D. for any clarification. heaJose bahena, MED STUDENT - 04/10/2021 7:00 AM CDT Surgery Progress Note [facility] day 10, POD 3 s/p DaVinci laparoscopic gastrojejunostomy for duodenal obstruction Overnight Events: No acute overnight events. Reports nausea but has improved this AM. S: Patient reports pain this morning but it is well controlled with WAXER. Endorses flatus but no BMs. CLD is well tolerated. Patient reports ambulating to nursing station x2. Hawk in place for urinary retention. O: Vitals: Vitals: 04/10/21 0933 BP: 130/73 Pulse: 65 Resp: 16 Temp: 98.2 F (36.8 C) SpO2: 97% 24h Intake and Output: Date 04/09/21699 - 04/10/21 0604/10/21699 - 04/11/21 0659 Shift 2938-6898 2721-9632 24 Hour Total 9809-1257 7284-5665 24 Hour Total INTAKE Oral 230 230 P.O. 230 230 IV 2681 2681 I.V. 2681 2681 Shift Total 2681 2681 230 230 OUTPUT Urine 1400 1400 2800 400 400 Urine 1400 1400 2800 400 400 Stool Unmeasured Stool Occurrence 0 x 0 x 0 x 0 x 0 x Shift Total 1400 1400 2800 400 400 NET -1400 1281 -119 -170 -170 Weight (kg) 71.5 76.7 76.7 76.7 76.7 76.7 Gen: no acute distress, comfortable, resting in bed CV: heart sounds normal, S1 and S2 present, no murmurs Lungs: chest rising symmetrically, lung sounds normal, no wheezes Abdomen: apprehensive to palpation but is soft, non-tender, non-distended. Incision sites are mildly tender, no erythema or swelling. Extremities: moving symmetrically, strength intact bilaterally and normal Significant Labs, Imaging, Microbiology: Reviewed Assessment: Sabrina Singleton is a 75 y.o. female patient who is 3 days post-op for gastrojejunostomy with Dr. Joshua for obstructed bowel. Plan: - Recommend discontinuing hawk for urination trial - Discontinue WAXER - Continue TPN and wean as oral intake improves - Full liquid diet - Wean IVF as oral intake improves - Await return of bowel function - PT/OT consult - Encourage frequent ambulation and out of bed - Incentive spirometer - Continue prn antiemetics with scheduled Reglan Disposition: per Medicine primary service, likely home or swing bed in [facility] MS3 Yousuf Ibarra MD - 04/10/2021 4:49 AM CDT [facility] Surgery Progress Note Sabrina Singleton Hospital day 10 Brief overview: Hospital Day 10, Post-Operative Day 3 s/p gastrojejunostomy. Sabrina Singleton is a 75yr femalewith triple-positive stage IV breast cancer. She was recently admitted with nausea,vomiting,and abdominal discomfort. On 03/31/2021, a CT was performed which demonstrated long segment circumferential thickening of the proximal duodenum as well as evidence of cholelithiasis and hepatic cirrhosis. 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 Biopsies and showed no evidence of carcinoma. She underwent gastrojejunostomy on 04/07/[address] Joshua. She tolerated the procedure well and there were no immediate complications. On POD#1, became more nauseous and was made NPO and started on scheduled Reglan as well as WAXER. Evening of POD#1, had urinary retention requiring replacement of hawk. Subjective: No acute events overnight. Nausea doing better. Pain well controlled Denies fevers chills, chest pain, N/V, SOB Endorses flatus, denies BM Tolerating clear liquid diet Ambulating, walked from room to nurse station x2 Hawk in place for urinary retention. Objective: Current Vital Signs Temp: 98.2 F (36.8 C) BP: 149/81 Pulse: 70 O2 Device: Room Air O2 Flow Rate (L/min): 1 l/min Resp: 16 Pain Ratin (out of 10) Weight: 76.7 kg (169 lb) SpO2: 98 % General: NAD, alert, cooperative HEENT: Normocephalic Heart: Normal rate, limbs warm and well perfused. Chest: Normal rate, normal WOB, sats good on room air Abd: Slightly distended. Port incisions c/d/i. Appropriately tender. No guarding or rebound tenderness. : Hawk in place Extremities: Right arm slightly swollen/edematous compared to left at baseline. Legs no edema lesionor deformity bilaterally I/O Intake/Output Summary (Last 24 hours) at 04/10/2021 0725 Last data filed at 04/10/2021 0500 Gross per 24 hour Intake 2681 ml Output 2800 ml Net -119 ml Labs Lab Results Component Value Date WBC 6.1 04/10/2021 HEMOGLOBIN 11.1 (L) 04/10/2021 PLTCOUNT 185 04/10/2021 Lab Results Component Value Date NA 138 04/10/2021 POTASSIUM 4.1 04/10/2021 CL 110 04/10/2021 CO2 23 04/10/2021 BUN 17 04/10/2021 CREATSERUM 0.56 (L) 04/10/2021 GLUCOSE 127 (H) 04/10/2021 CA 8.1 (L) 04/10/2021 PHOSPHORUS 2.6 04/10/2021 MAGNESIUM 2.1 04/10/2021 ALBUMIN 3.2 (L) 04/10/2021 Lab Results Component Value Date ALKPHOS 70 04/10/2021 BILIDIRECT 0.3 02/10/2019 BILIINDIRECT 0.3 02/10/2019 BILITOTAL 0.4 04/10/2021 AST 29 04/10/2021 ALT 32 04/10/2021 Imaging: No new Assessment: Sabrina Singleton is a 75yr old female patient who underwent gastrojejunostomy on 04/07/[address] Joshua. Overall she is doing well, recovering as anticipated. PROBLEMS Malnutrition Acute urinary retention Deconditioning Hx subclavian DVT Plan No major changes today Would like to trial discontinuing hawk today Recommend continue with scheduled Reglan and prn antiemetics as needed, hope to advance diet to fulls Continue TPN, hope to wean IVF as PO intake improves - IVF: recommend continue IVF at slow rate per primary service, hope to wean as PO improves - Antibiotics: None - Encourage out of bed and ambulation - DVT ppx: SCDs, lovenox Consults Medicine is primary service. PT/OT: recommend PT/OT consult Dispo: Medicine is primary service but our recommendations as follows: - Patient plans to return home - home is well setup for convalescence per patient - patient may benefit from short rehab. - Patient states would like to pursue swing bed in [place], near home. Gerry Franklin MD Surgery Resident PGY1 04/10/21 Associated attestation - Sarah Joshua MD - 04/10/2021 8:54 AM CDT I saw the patient with the resident. I was present during the critical or velazquez portions of the service furnished by the resident. I verified in the medical record, all residents documentation/findings, including history, physical exam, and medical decision making and I agree with the resident's documentation. Feeling better today, nausea has subsided. She has occasional belching. She can have a clear liquid diet and would encourage ambulation. Probably okay to wean off TPN. Sarah Joshua MD, PhD, MPH, FACS, FSSO call or contact centre manager Division of Surgical Oncology Fe Bowie MD - 04/09/2021 3:04 PM CDT [facility] PATIENT NAME: SABRINA SINGLETON I. DATE OF SERVICE: 04/09/2021 GEO: [id number] Sabrina is a 75-year-old female with metastatic breast cancer admitted to the hospital with abdominal discomfort, nausea, vomiting, inability to tolerate any oral intake. 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 Biopsies were obtained. Jejunum was normal. Patient was evaluated by surgical oncology. She was evaluated by her primary oncologist(). Based on her prognosis and survival, a decision was made that she would benefit from gastrojejunal bypass rather than stenting procedure. Underwent robotic assisted laparoscopic liverbiopsy and gastrojejunostomy- 04/07/2021. INTERVAL HISTORY: Feels a bit better today.No flatus or bowel movement.Pain controlled on current regimen. EGD biopsy results negative for malignancy.Surgery liver lesion biopsy results pending.On WAXER for pain control.Hawk introduced overnight due to urinary retention. REVIEW OF SYSTEMS: CONSTITUTION: No fever or chills. RESPIRATORY: No new cough or dyspnea. CARDIOVASCULAR: No chest pain or palpitations. ABDOMEN: Post operative abdominal pain. CENTRAL NERVOUS SYSTEM: No headache or dizziness. PHYSICAL EXAMINATION: VITALS: Reviewed. CONSTITUTIONAL: No distress. RESPIRATION: Bilateral air entry present. CARDIOVASCULAR SYSTEM: S1, S2 heard. ABDOMEN: Soft, lap incisions noted. Bowel sounds present. CENTRAL NERVOUS SYSTEM: Alert, oriented x3. LABS: Reviewed. ASSESSMENT: Right breast cancer, ER positive, VA positive, HER2/marlene positive. Acute Small bowel obstruction at the duodenal level. Status post surgical intervention. Electrolyte imbalance, hypokalemia-corrected. Hypertension. PLAN: Continue TPN. Follow clinical status post-surgery. Continue pain medication plan per surgery team. IV Ativan for sleep as needed. Continue as needed pain medications. Use p.r.n. blood pressure medications IV as patient cannot have oral medications at this time. Lovenox for DVT Prophylaxis. Fe Bowie MD Echo Rivera MD - 04/09/2021 7:05 AM CDT Surgery Daily Progress Note Sabrina Singleton : 1945 Admit Date: 03/31/2021 S: - Yesterday, patient was made NPO and started on scheduled reglan for continued nausea. This has helped and she is feeling much better this morning - Overnight, patient has urinary retention and hawk was replaced. - Pain controlled - Denies SOB, or CP. - No gas, No bowel movements O: Temp: 98.7 F (37.1 C) BP: 133/90 Pulse: 70 O2 Device: Room Air O2 Flow Rate (L/min): 1 l/min Resp: 18 Pain Ratin (out of 10) Weight: 71.5 kg (157 lb 9.6 oz) SpO2: 95 % General: Alert and orientated. No acute distress resting comfortably in bed Respiratory: Non-labored respirations Cardiac: RRR Abdomen: Soft, non distended, tender to palpatoin. Incision are well approximated with no erythema or drainage. Some ecchymosis surrounding incisions. Extremities: No peripheral edema Intake/Output Summary (Last 24 hours) at 04/09/2021 0707 Last data filed at 04/09/2021 0500 Gross per 24 hour Intake 964 ml Output 2400 ml Net -1436 ml PO: 0 Urine: 2400 Stool: 0 Labs: Lab Results Component Value Date WBC 10.9 04/08/2021 HEMOGLOBIN 10.6 (L) 04/08/2021 PLTCOUNT 185 04/08/2021 NA 137 04/08/2021 POTASSIUM 4.5 04/08/2021 CREATSERUM 0.61 04/08/2021 Imaging: No radiographic studies in last 24 hours Assessment: Sabrina Singleton is a 75yr female with triple-positive stage IV breast cancer. She was recently admitted with nausea, vomiting, and abdominal discomfort. On 03/31/2021, a CT was performed which demonstrated long segment circumferential thickening of the proximal duodenum as well as evidence of cholelithiasis and hepatic cirrhosis. 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 Biopsies and showed no evidence of carcinoma. She underwent gastrojejunostomy on 04/07/[address] Joshua. She tolerated the procedure well and there were no immediate complications. On POD#1, became more nauseous and was made NPO and started on scheduled Reglan as well as WAXER. Evening of POD#1, had urinary retention requiring replacement of hawk. Plan: - No major changes today - Continue with scheduled Reglan and prn antiemetics as needed - Keep NPO until nausea is improved - Continue TPN - mIVF - Continue hawk for today, will attempt to remove tomorrow - Awaiting return of bowel function - Antibiotics: None - Encourage out of bed and ambulation - DVT ppx: SCDs Echo Rivera MD General Surgery Resident, Pager # [phone] 04/08/21 Fe Castanon MD - 04/08/2021 1:15 PM CDT [facility] PATIENT NAME: SABRINA SINGLETON I. DATE OF SERVICE: 04/08/2021 GEO: [id number] A 75-year-old female with metastatic breast cancer admitted to the hospital with abdominal discomfort, nausea, vomiting, inability to tolerate any oral intake. 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 Biopsies were obtained. Jejunum wasnormal. Patient was evaluated by surgical oncology. She was also noted and evaluated by her primary oncologist. Based on her prognosis and survival, a decision was made that she would benefit from gastrojejunal bypass rather than stenting procedure. INTERVAL HISTORY: Underwent robotic assisted laparoscopic liver biopsy and gastrojejunostomy- 04/07/2021. Complains ofpost operative pain.Surgery team following and are initiating WAXER pump for pain management. REVIEW OF SYSTEMS: CONSTITUTION: No fever or chills. RESPIRATORY: No new cough or dyspnea. CARDIOVASCULAR: No chest pain or palpitations. ABDOMEN: Post operative abdominal pain. CENTRAL NERVOUS SYSTEM: No headache or dizziness. PHYSICAL EXAMINATION: VITALS: Reviewed. CONSTITUTIONAL: No distress. RESPIRATION: Bilateral air entry present. CARDIOVASCULAR SYSTEM: S1, S2 heard. ABDOMEN: Soft, lap incisions noted. Bowel sounds present. CENTRAL NERVOUS SYSTEM: Alert, oriented x3. LABS: Reviewed. ASSESSMENT: Right breast cancer, ER positive, VA positive, HER2/marlene positive. Acute Small bowel obstruction at the duodenal level. Status post surgical intervention. Electrolyte imbalance, hypokalemia-corrected. Hypertension. PLAN: Continue TPN. Follow clinical status post-surgery. Continue pain medication plan per surgery team. IV Ativan for sleep as needed. Continue as needed pain medications. Use p.r.n. blood pressure medications IV as patient cannot have oral medications at this time. Lovenox for DVT Prophylaxis. Fe Bowie MD Echo Rivera MD - 04/08/2021 7:39 AM CDT Surgery Daily Progress Note Sabrina Singleton : 1945 Admit Date: 03/31/2021 S: - No acute events overnight. - Pain controlled - Endorses nausea since 3am and Zofran not helping much. No vomiting. - Denies SOB, or CP. - Has not had much PO intake - Able to urinate well. O: Temp: 98.5 F (36.9 C) BP: 114/65 Pulse: 67 O2 Device: NC - no humidity O2 Flow Rate (L/min): 1 l/min Resp: 16 Pain Ratin (out of 10) Weight: 71.5 kg (157 lb 9.6 oz) SpO2: 92 % General: Alert and orientated. No acute distress but burping and holding emesis bag Respiratory: Non-labored respirations Cardiac: RRR Abdomen: Soft, non distended, mildly tender. Incision are well approximated with no erythema or drainage. Some ecchymosis surrounding incisions. Extremities: No peripheral edema Intake/Output Summary (Last 24 hours) at 04/08/2021 0740 Last data filed at 04/08/2021 0452 Gross per 24 hour Intake 4367.6 ml Output 475 ml Net 3892.6 ml PO: 0 Urine: 450 Stool: 0 Labs: Lab Results Component Value Date WBC 10.9 04/08/2021 HEMOGLOBIN 10.6 (L) 04/08/2021 PLTCOUNT 185 04/08/2021 NA 137 04/08/2021 POTASSIUM 4.5 04/08/2021 CREATSERUM 0.61 04/08/2021 Imaging: No radiographic studies in last 24 hours Assessment: Sabrina Singleton is a 75yr female with triple-positive stage IV breast cancer. She was recently admitted with nausea, vomiting, and abdominal discomfort. On 03/31/2021, a CT was performedwhich demonstrated long segment circumferential thickening of the proximal duodenum as well as evidence of cholelithiasis and hepatic cirrhosis. 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 Biopsies and showed no evidence of carcinoma. She underwent gastrojejunostomy on 04/07/[address] Joshua. She tolerated the procedure well and there were no immediate complications. Nauseous this morning. Plan: - Stay CLD for now. She is self regulating. Continue TPN until tolerating PO diet - Added Phenergan - If continues to have nausea/vomiting may need to consider NG placement - Hypophosphatemia. Will replace - Start on mIVF - Continue current pain management - Awaiting return of bowel function - Antibiotics: None - Encourage out of bed and ambulation - DVT ppx: SCDs Echo Rivera MD General Surgery Resident, Pager # [phone] 04/08/21 Fe Castanon MD - 04/07/2021 1:28 PM CDT [facility] PATIENT NAME: SABRINA SINGLETON I. DATE OF SERVICE: 04/07/2021 GEO: [id number] A 75-year-old female with metastatic breast cancer admitted to the hospital with abdominal discomfort, nausea, vomiting, inability to tolerate any oral intake. 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 Biopsies were obtained. Jejunum wasnormal. Patient was evaluated by surgical oncology. She was also noted and evaluated by her primary oncologist. Based on her prognosis and survival, a decision was made that she would benefit from gastrojejunal bypass rather than stenting procedure. INTERVAL HISTORY: Continues to be on NG with intermittent suction. On TPN, tolerating well. Plan for surgery today.Discussed with primary oncologist. Discussed and examined patient in presence of care team. REVIEW OF SYSTEMS: CONSTITUTION: No fever or chills. RESPIRATORY: No new cough or dyspnea. CARDIOVASCULAR: No chest pain or palpitations. ABDOMEN: No belly pain at this point. CENTRAL NERVOUS SYSTEM: No headache or dizziness. PHYSICAL EXAMINATION: VITALS: Reviewed. CONSTITUTIONAL: No distress. RESPIRATION: Bilateral air entry present. CARDIOVASCULAR SYSTEM: S1, S2 heard. ABDOMEN: Soft, nontender. Bowel sounds present. CENTRAL NERVOUS SYSTEM: Alert, oriented x3. LABS: Reviewed. ASSESSMENT: Right breast cancer, ER positive, VA positive, HER2/marlene positive. Acute Small bowel obstruction at the duodenal level. Electrolyte imbalance, hypokalemia-corrected. Hypertension. PLAN: Continue TPN. Continue NG to low intermittent suction. Follow clinical status post-surgery. IV Ativan for sleep as needed. Continue as needed pain medications. Use p.r.n. blood pressure medications IV as patient cannot have oral medications at this time. Heparin sc to resume post surgery. Fe Bowie MD New Serna MD - 04/07/2021 11:10 AM CDT 04/07/2021 Hematology/Oncology Daily Progress Note Sabrina Singleton is a 75yr old female admitted on 03/31/2021 9:56 AM. Impression / Plan 1. Metastatic breast cancer patient was on Herceptin Perjeta and Femara. Treatment on hold due to planned surgery today. 2. Duodenal/small bowel obstruction. Planned bypass surgery today. She is feeling well. 3. Patient on TPN due to above. After surgical recovery patient will be discharged home and we will restart him on chemotherapy in her management. Interval History Patient with metastatic breast cancer admitted for small bowel obstruction at the level of the duodenum/jejunum. This plan to vaginal bypass surgery today. She is on TPN at this time. Feeding well.No abdominal pain. No nausea vomiting. No fever. Review of system otherwise unremarkable. Medications Current Facility-Administered Medications Medication Dose Route Frequency Provider Last Rate Last Admin TPN (parenteral nutrition (ADULTS AND CHILDREN 40kg or GREATER) IV daily Rocael Bowie MD hydrocortisone (HYTONE) 1 % cream affected area 2 times a day prn Yousuf Franklin MD TPN (parenteral nutrition (ADULTS AND CHILDREN 40kg or GREATER) IV daily Rocael Bowie MD 60.6 mL/hr at 04/06/211924 New Bag at 04/06/211924 LORazepam (ATIVAN) 2 mg/mL injection solution 1 mg 1 mg IV Bedtime prn Fe Bowie MD 1 mg at 04/06/212150 phenol (CHLORASEPTIC) 1.4 % liquid/spray 2 spray 2 spray Mouth/Throat Every 2 hours prn Keiry Valladares MD HYDROmorphone (DILAUDID) injection solution (conc: 1 mg/mL) 0.5-1 mg 0.5-1 mg IV Every 3 hours prn Stefan Gerber, DO 1 mg at 04/07/21 0306 hydrALAZINE (APRESOLINE) injection solution 10 mg 10 mg IV Every 4 hours prn Lizz Mcduffie MD ondansetron (ZOFRAN) injection solution 4 mg 4 mg IV Every 15 minutes prn Sofía Beckham, DO 4 mg at 03/31/21 1202 sodium chloride 0.9% flush (adult) 10 mL 10 mL IV 2 times a day and prn Lizz Mcduffie MD10 mL at 04/06/212150 nalOXone (NARCAN) injection solution (vial) 0.4 mg 0.4 mg Injection Every 2 minutes prn Lizz Mcduffie MD nalOXone (NARCAN) injection solution (vial) 0.2 mg 0.2 mg Injection Every 2 minutes prn Lizz Mcduffie MD acetaminophen (TYLENOL) tablet 650 mg 650 mg Oral Every 4 hours prn Lizz Mcduffie MD 650mg at 03/31/212207 melatonin tablet 3 mg 3 mg Oral Bedtime prn Lizz Mcduffie MD 3 mg at 07/09/21 2208 ondansetron (ZOFRAN ODT) dispersible tablet 4 mg 4 mg Oral 4 times a day prn Lizz Mcduffie MD And ondansetron (ZOFRAN) injection solution 4 mg 4 mg IV 4 times a day prn Lizz Mcduffie MD famotidine (PEPCID) tablet 20 mg 20 mg Oral 2 times a day prn Lizz Mcduffie MD hEParin 100 units/ mL injection for heplock FLUSH 5 mL IV PRN per parameter Favian Rubin MD 500 Units at 03/31/21 1709 And sodium chloride 0.9% flush (adult) 10 mL 10 mL IV Daily and prn Favian Rubin MD Facility-Administered Medications Ordered in Other Encounters Medication Dose Route Frequency Provider Last Rate Last Admin propofol (DIPRIVAN) 10 mg/mL IV emulsion (anesthesia IV Intra-Op infusion Juan Ramos APRN-INTENSIVE CARE AMBULANCE PARAMEDIC 24 mL/hr at 04/07/21 1358 Rate Change at 04/07/21 1358 PHENYLephrine (SIXTO-SYNEPHRINE) in sod chloride 0.9% (100 mcg/mL) infusion IV Intra-Op infusionJuan Ramos BRAND MANAGER-INTENSIVE CARE AMBULANCE PARAMEDIC 12 mL/hr at 04/07/21 1457 20 mcg/min at 04/07/21 1457 ePHEDrine injection solution IV IntraOp Juan Ramos BRAND MANAGER-INTENSIVE CARE AMBULANCE PARAMEDIC 5 mg at 04/07/21 1406 fentaNYL 250 mcg/5 mL preservative free injection solution IV IntraOp Juan Ramos BRAND MANAGER-INTENSIVE CARE AMBULANCE PARAMEDIC 100 mcg at 04/07/21 1344 lactated ringers IV solution IV Intra-Op infusion Juan Ramos BRAND MANAGER-INTENSIVE CARE AMBULANCE PARAMEDIC New Bag at 04/07/21 1317 sodium chloride 0.9% IV solution IV Intra-Op infusion Juan Ramos BRAND MANAGER-INTENSIVE CARE AMBULANCE PARAMEDIC New Bag at 04/07/21 1323 magnesium sulfate 2 g/50 mL premixed IV solution IV IntraOp Juan Ramos BRAND MANAGER-INTENSIVE CARE AMBULANCE PARAMEDIC 2 g at 04/07/21 1346 lidocaine PF (XYLOCAINE-MPF) 2 % injection solution IV IntraOp Juan Ramos BRAND MANAGER-CRNA80 mg at 04/07/21 1318 propofol (DIPRIVAN) 200 mg/20 mL IV emulsion IV IntraOp RachelJuan rodriguez, BRAND MANAGER-INTENSIVE [employer]ARE AMBULANCE PARAMEDIC 110 mgat 04/07/21 1318 rocuronium (ZEMURON) IV solution (vial) IV IntraOp RachelJuan benjamin, BRAND MANAGER-INTENSIVE CARE AMBULANCE PARAMEDIC 10 mg at 04/07/21 1435 succinylcholine chloride (QUELICIN;ANECTINE) injection solution (syringe) IV IntraOp RachelJuan benjamin, BRAND MANAGER-INTENSIVE CARE AMBULANCE PARAMEDIC 120 mg at 04/07/21 1319 PHENYLephrine (100 mcg/mL) in sodium chloride 0.9% IV prefilled syringe 10 mL IV IntraOp RachelJuan benjamin, BRAND MANAGER-INTENSIVE CARE AMBULANCE PARAMEDIC 150 mcg at 04/07/21 1321 albumin (human) 5 % IV solution IV IntraOp RachelJuan benjamin, BRAND MANAGER-INTENSIVE CARE AMBULANCE PARAMEDIC 250 mL at 04/07/21 1355 dexAMETHasone sodium phosphate (DECADRON) (10 mg/mL) injection solution IV IntraOp Juan Ramos, BRAND MANAGER-INTENSIVE CARE AMBULANCE PARAMEDIC 5 mg at 04/07/21 1351 heparin (porcine) injection solution Subcutaneous IntraOp Juan Ramos, BRAND MANAGER-INTENSIVE CARE AMBULANCE PARAMEDIC 5,000 Units at 04/07/21 1410 fentaNYL 100 mcg/2 mL preservative free injection solution IV IntraOp RachelJuan benjamin, BRAND MANAGER-INTENSIVE CARE AMBULANCE PARAMEDIC 50 mcg at 04/07/21 1500 hEParin 100 units/ mL injection for heplock FLUSH 500 Units IV 1 time Tracy Frias APRN-CNP sodium chloride 0.9% prefilled 10 mL syringe (Materials Management Item) 10- 20 mL 10-20 mL IV As often as necessary prn Nathalie Bang APRN-CNP sodium chloride flush 0.9% 10-20 mL 10-20 mL IV As often as necessary prn Nathalie Bang APRN-CNP Physical Exam Vital Signs: Temp: 99.1 F (37.3 C) | BP: 120/72 | Pulse: 69 | Resp: 18 | Pain Ratin (out of 10) | Weight: 71.5 kg (157 lb 9.6 oz) | O2 Device: Room Air | SpO2: 97 % Maximum Temperatures (last 24 hours) Temperature Maximum Max Temp 99.1 F (37.3 C) Vital Signs Min/Max (last 24 hours) Flowsheet Row Name Min Max Temp 98.1 F (36.7 C) 99.1 F (37.3 C) BP: Systolic 118 120 BP: Diastolic 68 72 Pulse 66 69 Resp 16 18 SpO2 96 % 97 % Wt Readings from Last 3 Encounters: 04/03/21 71.5 kg (157 lb 9.6 oz) 03/24/21 72.4 kg (159 lb 9.6 oz) 03/03/21 73.5 kg (162 lb 1.6 oz) Intake and Output: 04/06 0700 - 04/07 0659 In: 1718 Out: 1500 [Urine:1250] General Appearance: alert,and in no distress Eyes: sclera anicteric HENT: no oral sores or thrush noted. Neck: supple, Lungs: no rales or rhonchi, equal air entry on both sides Heart: normal rate, normal S1, S2 Abdomen: soft, nontender, nondistended, Neurological: alert, oriented, no focal deficit Mental Status: normal mood, behavior Extremities: no pedal edema, Skin: no rashes, Labs Recent Labs 04/05/21 0752 04/06/21 1048 04/07/21 0520 WBC 6.7 6.2 7.0 HEMOGLOBIN 11.8 12.0 11.9 HEMATOCRIT 37.5 37.6 38.5 PLTCOUNT 240 226 228 NEUTROABS 4.7 4.3 4.8 Recent Labs 04/05/21 0752 04/06/21 1048 04/07/21 0520 BUN 21 24* 23* CREATSERUM 0.62 0.65 0.67 NA 140 139 138 POTASSIUM 3.8 4.3 4.3 CL 109 109 106 CO2 24 24 26 CA 8.2* 8.0* 8.1* PROTEINTOTAL 6.3 6.3 6.5 ALBUMIN 3.3* 3.3* 3.4* ALKPHOS 58 57 63 AST 15 23 25 ALT 10 13 17 BILITOTAL 0.4 0.4 0.5 MAGNESIUM 2.4 2.3 2.4 New Serna MD [facility] Yousuf Franklin MD - 04/07/2021 8:01 AM CDT [facility] Surgery Progress Note Sabrina Singleton Hospital day 7 Brief overview: Hospital Day 7, patientis a 75-year-old woman with history of metastatic breast cancer currently admitted for small bowel obstruction at the duodenal level. She has right-sided pleural effusion. 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 Subjective: No acute events overnight Pain well controlled Denies fevers chills, chest pain, N/V, SOB Endorses flatus NPO Ambulating Urinating without difficulty Objective: Current Vital Signs Temp: 99.1 F (37.3 C) BP: 120/72 Pulse: 69 O2 Device: Room Air Resp: 18 Pain Ratin (out of 10) Weight: 71.5 kg (157 lb 9.6 oz) SpO2: 97 % General: NAD, alert, cooperative HEENT: Normocephalic Heart: Normal rate limbs warm and well perfused Chest: Normal work of breathing Abd: soft no rebound or guarding : grossly normal Extremities: warm, no edema, no lesion or deformity I/O Intake/Output Summary (Last 24 hours) at 04/07/2021 1402 Last data filed at 04/07/2021 0739 Gross per 24 hour Intake 1718 ml Output 1100 ml Net 618 ml Labs Lab Results Component Value Date WBC 7.0 04/07/2021 HEMOGLOBIN 11.9 04/07/2021 PLTCOUNT 228 04/07/2021 Lab Results Component Value Date NA 138 04/07/2021 POTASSIUM 4.3 04/07/2021 CL 106 04/07/2021 CO2 26 04/07/2021 BUN 23 (H) 04/07/2021 CREATSERUM 0.67 04/07/2021 GLUCOSE 132 (H) 04/07/2021 CA 8.1 (L) 04/07/2021 PHOSPHORUS 2.9 04/07/2021 MAGNESIUM 2.4 04/07/2021 ALBUMIN 3.4 (L) 04/07/2021 Imaging: None new Pathology FINAL DIAGNOSIS A. DUODENUM, STRICTURE, BIOPSY: - Inflamed small intestinal mucosa with preserved villous architecture and prominent intraepitheliallymphocytes, see comment. COMMENT There is no evidence of carcinoma in these biopsies, which might be secondary to superficial sampling. Given the impression of a stricture, additional sampling might be helpful. Also, prominent intraepithelial lymphocytes raise the possibility of gluten-sensitive enteropathy (Celiac disease). If clinical suspicion for celiac disease exists, correlation with serologic studies is indicated. Intradepartmental consultation was obtained. Assessment: Sabrina Singleton is a 75yr old female patient with metastatic breast cancer currently admitted for small bowel obstruction at the duodenal level. PROBLEMS Anemia d/t cancer. Hgb stable Malnutrition history of DVT Plan Plan is for patient to undergo robot assisted laparoscopic gastrojejunostomy bypass for her duodenalobstruction Recommend continued IVF (D5 1/2 NS), TPN per primary team NPO Gerry Franklin MD Surgery Resident PGY1 04/07/21 Associated attestation - Sarah Joshua MD - 04/07/2021 5:27 PM CDT I discussed the patient with the resident and personally interviewed and examined the patient. I verified in the medical record all resident documentation/findings, including history, physical exam, and medical decision making, and I agree with the resident's documentation. Sarah Joshua MD, PhD, MPH, FACS, FSSO call or contact centre manager Division of Surgical Oncology Fe Bowie MD - 04/06/2021 6:41 PM CDT [facility] PATIENT NAME: SABRINA SINGLETON I. DATE OF SERVICE: 04/06/2021 GEO: [id number] A 75-year-old female with metastatic breast cancer admitted to the hospital with abdominal discomfort, nausea, vomiting, inability to tolerate any oral intake. 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 Biopsies were obtained. Jejunum wasnormal. Patient was evaluated by surgical oncology. She was also noted and evaluated by her primary oncologist. Based on her prognosis and survival, a decision was made that she would benefit from gastrojejunal bypass rather than stenting procedure. Currently waiting to have this procedure completed after the surgical team has everything in place. INTERVAL HISTORY: Continues to be on NG with intermittent suction. On TPN, tolerating well. Discussed and examined patient in presence of care team. REVIEW OF SYSTEMS: CONSTITUTION: No fever or chills. RESPIRATORY: No new cough or dyspnea. CARDIOVASCULAR: No chest pain or palpitations. ABDOMEN: No belly pain at this point. CENTRAL NERVOUS SYSTEM: No headache or dizziness. PHYSICAL EXAMINATION: VITALS: Reviewed. CONSTITUTIONAL: No distress. RESPIRATION: Bilateral air entry present. CARDIOVASCULAR SYSTEM: S1, S2 heard. ABDOMEN: Soft, nontender. Bowel sounds present. CENTRAL NERVOUS SYSTEM: Alert, oriented x3. LABS: Reviewed. ASSESSMENT: Right breast cancer, ER positive, VA positive, HER2/marlene positive. Acute Small bowel obstruction at the duodenal level. Electrolyte imbalance, hypokalemia-corrected. Hypertension. PLAN: Continue TPN. Continue NG to low intermittent suction. IV Ativan for sleep as needed. Continue as needed pain medications. Use p.r.n. blood pressure medications IV as patient cannot have oral medications at this time. Plan for surgery tomorrow. Fe Bowie MD Yousuf Franklin MD - 04/06/2021 7:07 AM CDT [facility] Surgery Progress Note Sabrina Valdez [facility] day 6 Brief overview: Hospital Day 6, patientis a 75-year-old woman with history of metastatic breast cancer currently admitted for small bowel obstruction at the duodenal level. She has right-sided pleural effusion. 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 No notes on file Subjective: No acute events overnight. Complains of anal pruritis, has history of hemorrhoid. Pain well controlled Denies fevers chills, chest pain, N/V, SOB NPO Ambulating independently, Urinating without difficulty Objective: Current Vital Signs Temp: 98.6 F (37 C) BP: 118/80 Pulse: 72 O2 Device: Room Air Resp: 14 Pain Ratin (out of 10) Weight: 71.5 kg (157 lb 9.6 oz) SpO2: 95 % General: NAD, alert, cooperative HEENT:Normocephalic, eyes, nose, mouth grossly normal, mucosa pink and moist Heart:Normal rate, limbs warm and well perfused Chest:Normal work of breathing, O2 sats are good on room air Abd:Soft, no rebound or guarding Neuro: alert, oriented, no focal deficit Psych: Normal mood and affect. I/O Intake/Output Summary (Last 24 hours) at 04/06/2021 0712 Last data filed at 04/05/2021 2109 Gross per 24 hour Intake 1326 ml Output 1000 ml Net 326 ml Labs Lab Results Component Value Date WBC 6.7 04/05/2021 HEMOGLOBIN 11.8 04/05/2021 PLTCOUNT 240 04/05/2021 Lab Results Component Value Date NA 140 04/05/2021 POTASSIUM 3.8 04/05/2021 CL 109 04/05/2021 CO2 24 04/05/2021 BUN 21 04/05/2021 CREATSERUM 0.62 04/05/2021 GLUCOSE 125 (H) 04/05/2021 CA 8.2 (L) 04/05/2021 PHOSPHORUS 2.3 (L) 04/05/2021 ALBUMIN 3.3 (L) 04/05/2021 Lab Results Component Value Date ALKPHOS 58 04/05/2021 BILIDIRECT 0.3 02/10/2019 BILIINDIRECT 0.3 02/10/2019 BILITOTAL 0.4 04/05/2021 AST 15 04/05/2021 ALT 10 04/05/2021 Imaging: MRI ABDOMEN WITH AND WITHOUT CONTRAST 04/02 IMPRESSION: 1. Somewhat limited exam secondary to motion artifact. 2. Persistent circumferential thickening of the proximal duodenum. Recent upper endoscopy showed malignant appearing stenosis of the proximal duodenum. The thickened proximal duodenum appears to extendto the ampulla and likely encases the distal common bile duct and main pancreatic duct. No significant biliary ductal dilatation. The thickened proximal duodenum also abuts and possibly invades the gallbladder. 3. Widespread osseous metastatic disease. 4. Cirrhosis of the liver. 5. Cholelithiasis. 6. Small right pleural effusion. 7. There is an enteric tube with its tip in the stomach. The stomach is decompressed. Tissue pathology is pending. Assessment: Sabrina Singleton is a 75yr old female patient with metastatic breast cancer currently admitted for small bowel obstruction at the duodenal level. PROBLEMS Anemia d/t cancer. Hgb stable Malnutrition history of DVT Anal pruritis Plan Awaiting path review of biopsies Tentative plan for DaVinci Xi assisted robotic gastrojejunostomy for palliative intent on Saturday. Recommend continued IVF (D5 1/2 NS), TPN per primary team NPO Hydrocortisone cream for anal pruritis. Yousuf Franklin MD Mobile Battery Technician, PGY1 Associated attestation - Sarah Joshua MD - 04/06/2021 4:47 PM CDT I discussed the patient with the resident and personally interviewed and examined the patient. I verified in the medical record all resident documentation/findings, including history, physical exam, and medical decision making, and I agree with the resident's documentation. OR planned for tomorrow. Risks/goals previously discussed. She has no additional questions or concerns. Sarah Joshua MD, PhD, MPH, FACS, FSSO call or contact centre manager Division of Surgical Oncology New Serna MD - 04/05/2021 10:18 PM CDT 04/05/2021 Hematology/Oncology Daily Progress Note Sabrina Singleton is a 75yr old female admitted on 03/31/2021 9:56 AM. Impression / Plan 1. Acute small bowel obstruction at duodenal/jejunal level. Awaiting bypass surgery. Plan for Saturday. Patient doing better with TPN. Has an NG tube. Patient comfortable. 2. Metastatic breast cancer. Oral treatment on hold due to current medical condition. Patient otherwise comfortable. Continue supportive care. Surgery is planned. Interval History She is feeling well and is comfortable. Has an NG tube suction. No abdominal pain. Nothing by mouth. Nutrition through TPN. No fever. Medications Current Facility-Administered Medications Medication Dose Route Frequency Provider Last Rate Last Admin heparin (porcine) injection solution 5,000 Units 5,000 Units Subcutaneous Every 8 hours Fe Bowie MD 5,000 Units at 04/05/21 2110 TPN (parenteral nutrition (ADULTS AND CHILDREN 40kg or GREATER) IV daily Rocael Bowie MD 60.8 mL/hr at 04/05/21 1826 New Bag at 04/05/21 182 LORazepam (ATIVAN) 2 mg/mL injection solution 1 mg 1 mg IV Bedtime prn Fe Bowie MD 1 mg at 04/05/212124 phenol (CHLORASEPTIC) 1.4 % liquid/spray 2 spray 2 spray Mouth/Throat Every 2 hours prn Keiry Valladares MD HYDROmorphone (DILAUDID) injection solution (conc: 1 mg/mL) 0.5-1 mg 0.5-1 mg IV Every 3 hours prn Stefan Gerber, DO 1 mg at 04/02/21 2223 hydrALAZINE (APRESOLINE) injection solution 10 mg 10 mg IV Every 4 hours prn Lizz Mcduffie MD ondansetron (ZOFRAN) injection solution 4 mg 4 mg IV Every 15 minutes prn Sofía Beckham DO 4 mg at 03/31/21 1202 sodium chloride 0.9% flush (adult) 10 mL 10 mL IV 2 times a day and prn Lizz Mcduffie MD10 mL at 04/04/212045 nalOXone (NARCAN) injection solution (vial) 0.4 mg 0.4 mg Injection Every 2 minutes prn Lizz Mcduffie MD nalOXone (NARCAN) injection solution (vial) 0.2 mg 0.2 mg Injection Every 2 minutes prn Lizz Mcduffie MD acetaminophen (TYLENOL) tablet 650 mg 650 mg Oral Every 4 hours prn Lizz Mcduffie MD 650mg at 03/31/212207 melatonin tablet 3 mg 3 mg Oral Bedtime prn Lizz Mcduffie MD 3 mg at 03/31/212207 ondansetron (ZOFRAN ODT) dispersible tablet 4 mg 4 mg Oral 4 times a day prn Lizz Mcduffie MD And ondansetron (ZOFRAN) injection solution 4 mg 4 mg IV 4 times a day prn Lizz Mcduffie MD famotidine (PEPCID) tablet 20 mg 20 mg Oral 2 times a day prn Lizz Mcduffie MD hEParin 100 units/ mL injection for heplock FLUSH 5 mL IV PRN per parameter Favian Rubin MD 500 Units at 03/31/21 1709 And sodium chloride 0.9% flush (adult) 10 mL 10 mL IV Daily and prn Favian Rubin MD Facility-Administered Medications Ordered in Other Encounters Medication Dose Route Frequency Provider Last Rate Last Admin hEParin 100 units/ mL injection for heplock FLUSH 500 Units IV 1 time Tracy Frias APRN-CNP sodium chloride 0.9% prefilled 10 mL syringe (Materials Management Item) 10- 20 mL 10-20 mL IV As often as necessary prn Nathalie Bang APRN-CNP sodium chloride flush 0.9% 10-20 mL 10-20 mL IV As often as necessary prn Nathalie Bang APRN-CNP Physical Exam Vital Signs: Temp: 98.6 F (37 C) | BP: 118/80 | Pulse: 72 | Resp: 14 | Pain Ratin (out of 10) | Weight: 71.5 kg (157 lb 9.6 oz) | O2 Device: Room Air | SpO2: 95 % Maximum Temperatures (last 24 hours) Temperature Maximum Max Temp 98.6 F (37 C) Vital Signs Min/Max (last 24 hours) Flowsheet Row Name Min Max Temp 98.2 F (36.8 C) 98.6 F (37 C) BP: Systolic 112 129 BP: Diastolic 71 94 Pulse 72 79 Resp 14 18 SpO2 95 % 98 % Wt Readings from Last 3 Encounters: 04/03/21 71.5 kg (157 lb 9.6 oz) 03/24/21 72.4 kg (159 lb 9.6 oz) 03/03/21 73.5 kg (162 lb 1.6 oz) Intake and Output: 04/04 07 - 04/05 0659 In: 1974 Out: 2250 [Urine:1600] General Appearance: alert,and in no distress. NG tube in place Eyes: sclera anicteric HENT: no oral sores or thrush noted. Neck: supple, Lungs: no rales or rhonchi, equal air entry on both sides Heart: normal rate, normal S1, S2 Abdomen: soft, nontender, nondistended, Neurological: alert, oriented, no focal deficit Labs Recent Labs 04/03/21 0700 04/04/21 0513 04/05/21 0752 WBC 6.7 5.7 6.7 HEMOGLOBIN 10.1* 12.0 11.8 HEMATOCRIT 31.5* 37.2 37.5 PLTCOUNT 211 258 240 NEUTROABS 5.0 3.9 4.7 Recent Labs 04/03/21 0700 04/04/21 0513 04/05/21 0752 BUN 11 14 21 CREATSERUM 0.65 0.65 0.62 NA 141 142 140 POTASSIUM 3.1* 3.3* 3.8 CL 109 109 109 CO2 25 26 24 CA 7.8* 8.0* 8.2* PROTEINTOTAL 5.5* 6.6 6.3 ALBUMIN 2.9* 3.4* 3.3* ALKPHOS 56 62 58 AST 13 13 15 ALT 9 10 10 BILITOTAL 0.2 0.3 0.4 MAGNESIUM 2.2 2.3 2.4 New Serna MD [facility] Fe Bowie MD - 04/05/2021 3:27 PM CDT [facility] PATIENT NAME: SABRINA SINGLETON I. DATE OF SERVICE: 04/05/2021 GEO: [id number] A 75-year-old female with metastatic breast cancer admitted to the hospital with abdominal discomfort, nausea, vomiting, inability to tolerate any oral intake. 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 Biopsies were obtained. Jejunum wasnormal. Patient was evaluated by surgical oncology. She was also noted and evaluated by her primary oncologist. Based on her prognosis and survival, a decision was made that she would benefit from gastrojejunal bypass rather than stenting procedure. Currently waiting to have this procedure completed after the surgical team has everything in place. INTERVAL HISTORY: Continues to be on NG with intermittent suction. On TPN, tolerating well. Slept better after iv ativan dose. Hypokalemia corrected. Discussed and examined patient in presence of care team. REVIEW OF SYSTEMS: CONSTITUTION: No fever or chills. RESPIRATORY: No new cough or dyspnea. CARDIOVASCULAR: No chest pain or palpitations. ABDOMEN: No belly pain at this point. CENTRAL NERVOUS SYSTEM: No headache or dizziness. PHYSICAL EXAMINATION: VITALS: Reviewed. CONSTITUTIONAL: No distress. RESPIRATION: Bilateral air entry present. CARDIOVASCULAR SYSTEM: S1, S2 heard. ABDOMEN: Soft, nontender. Bowel sounds present. CENTRAL NERVOUS SYSTEM: Alert, oriented x3. LABS: Reviewed. ASSESSMENT: Right breast cancer, ER positive, VA positive, HER2/marlene positive. Acute Small bowel obstruction at the duodenal level. Electrolyte imbalance, hypokalemia. hypertension. PLAN: Continue TPN. Continue NG to low intermittent suction. IV Ativan for sleep as needed. Continue as needed pain medications. Use p.r.n. blood pressure medications IV as patient cannot have oral medications at this time. Fe Bowie MD Yousuf Franklin MD - 04/05/2021 2:25 PM CDT [facility] Surgery Progress Note [facility] day 5 Brief overview: Hospital Day 5, patient is a 75-year-old woman with history of metastatic breast cancer currently admitted for small bowel obstruction at the duodenal level. She has right-sided pleural effusion. Also has history of right subclavian vein thrombosis. Plan is for patient to undergo operative management of this on Saturday. NPO on TPN until then. Subjective: No acute events overnight Pain well controlled Denies fevers chills, chest pain, N/V, SOB NPO Ambulating independently, Urinating without difficulty Objective: Current Vital Signs Temp: 98.2 F (36.8 C) BP: 129/83 Pulse: 72 O2 Device: Room Air Resp: 18 Pain Ratin (out of 10) Weight: 71.5 kg (157 lb 9.6 oz) SpO2: 97 % General: NAD, alert, cooperative HEENT: Normocephalic, eyes, nose, mouth grossly normal, mucosa pink and moist Heart: Normal rate, limbs warm and well perfused Chest: Normal work of breathing, O2 sats are good on room air Abd: Soft, no rebound or guarding Extremities: Right arm edema. No pedal edema. I/O Intake/Output Summary (Last 24 hours) at 04/05/2021 1426 Last data filed at 04/05/2021 1400 Gross per 24 hour Intake 2140 ml Output 1800 ml Net 340 ml Labs Lab Results Component Value Date WBC 6.7 04/05/2021 HEMOGLOBIN 11.8 04/05/2021 PLTCOUNT 240 04/05/2021 Lab Results Component Value Date NA 140 04/05/2021 POTASSIUM 3.8 04/05/2021 CL 109 04/05/2021 CO2 24 04/05/2021 BUN 21 04/05/2021 CREATSERUM 0.62 04/05/2021 GLUCOSE 125 (H) 04/05/2021 CA 8.2 (L) 04/05/2021 PHOSPHORUS 2.3 (L) 04/05/2021 ALBUMIN 3.3 (L) 04/05/2021 Lab Results Component Value Date ALKPHOS 58 04/05/2021 BILIDIRECT 0.3 02/10/2019 BILIINDIRECT 0.3 02/10/2019 BILITOTAL 0.4 04/05/2021 AST 15 04/05/2021 ALT 10 04/05/2021 Assessment: Sabrina Singleton is a 75yr old female patient with metastatic breast cancer currently admitted for small bowel obstruction at the duodenal level. PROBLEMS Anemia d/t cancer. Hgb stable Malnutrition history of DVT Plan Recommend continued NG. IVF, TPN, electrolyte management per primary service. Yousuf Franklin MD Mobile Battery Technician, PGY1 Associated attestation - Sarah Joshua MD - 04/05/2021 5:52 PM CDT I discussed the patient with the resident and personally interviewed and examined the patient. I verified in the medical record all resident documentation/findings, including history, physical exam, and medical decision making, and I agree with the resident's documentation. Awaiting path review of biopsies, but tentative plan for DaVinci Xi assisted robotic gastrojejunostomy for palliative intent on Saturday. Please see risks and goals in yesterday's note. Sarah Joshua MD, PhD, MPH, FACS, FSSO call or contact centre manager Division of [facility]cology[facility] - 04/05/2021 11:42 AM CDT TPN per Pharmacy Ms. Singleton is on day 4 of TPN per pharmacy protocol. Plan for today is: increase to 100% AA, 100% CHO and lipids. Pharmacy will continue to monitor and if indicated, adjust daily per the Pharmacy and Therapeutics Committee approved TPN consult service policy. Thank you- Mariana Richardson RPh New Serna MD - 04/04/2021 10:38 PM CDT 04/04/2021 Hematology/Oncology Daily Progress Note Sabrina Singleton is a 75yr old female admitted on 03/31/2021 9:56 AM. Impression / Plan 1. Duodenal obstruction. On NG tube aspiration and n.p.o. Receiving TPN. Plan to do duodenal bypass surgery. Management as per primary hospitalist and surgical service. 2. Metastatic breast cancer. Patient is on Herceptin Perjeta. She is also on oral Femara. Hold Femara until she is able to receive oral medications. Interval History Patient feeling well. Sometimes nausea but no vomiting. Significant gastric aspirate still coming out. No significant abdominal pain now. No cough. No shortness of breath. No fever. Awaiting surgery. Medications Current Facility-Administered Medications Medication Dose Route Frequency Provider Last Rate Last Admin TPN (parenteral nutrition (ADULTS AND CHILDREN 40kg or GREATER) IV daily Rocael Bowie MD 54.6 mL/hr at 04/04/21 1725 New Bag at 04/04/21 172 LORazepam (ATIVAN) 2 mg/mL injection solution 1 mg 1 mg IV Bedtime prn Fe Bowie MD 1 mg at 04/04/212044 phenol (CHLORASEPTIC) 1.4 % liquid/spray 2 spray 2 spray Mouth/Throat Every 2 hours prn Keiry Valladares MD HYDROmorphone (DILAUDID) injection solution (conc: 1 mg/mL) 0.5-1 mg 0.5-1 mg IV Every 3 hours prn Stefan Gerber, DO 1 mg at 04/02/21 2223 hydrALAZINE (APRESOLINE) injection solution 10 mg 10 mg IV Every 4 hours prn Lizz Mcduffie MD ondansetron (ZOFRAN) injection solution 4 mg 4 mg IV Every 15 minutes prn Sofía Beckham DO 4 mg at 03/31/21 1202 sodium chloride 0.9% flush (adult) 10 mL 10 mL IV 2 times a day and prn Lizz Mcduffie MD10 mL at 04/04/21 2046 nalOXone (NARCAN) injection solution (vial) 0.4 mg 0.4 mg Injection Every 2 minutes prn Lizz Mcduffie MD nalOXone (NARCAN) injection solution (vial) 0.2 mg 0.2 mg Injection Every 2 minutes prn Lizz Mcduffie MD acetaminophen (TYLENOL) tablet 650 mg 650 mg Oral Every 4 hours prn Lizz Mcduffie MD 650mg at 03/31/212207 melatonin tablet 3 mg 3 mg Oral Bedtime prn Lizz Mcduffie MD 3 mg at 03/31/212207 ondansetron (ZOFRAN ODT) dispersible tablet 4 mg 4 mg Oral 4 times a day prn Lizz Mcduffie MD And ondansetron (ZOFRAN) injection solution 4 mg 4 mg IV 4 times a day prn Lizz Mcduffie MD famotidine (PEPCID) tablet 20 mg 20 mg Oral 2 times a day prn Lizz Mcduffie MD hEParin 100 units/ mL injection for heplock FLUSH 5 mL IV PRN per parameter Favian Rubin MD 500 Units at 03/31/21 1709 And sodium chloride 0.9% flush (adult) 10 mL 10 mL IV Daily and prn Favian Rubin MD Facility-Administered Medications Ordered in Other Encounters Medication Dose Route Frequency Provider Last Rate Last Admin hEParin 100 units/ mL injection for heplock FLUSH 500 Units IV 1 time Tracy Frias APRN-HYGIENE ASSISTANT sodium chloride 0.9% prefilled 10 mL syringe (Materials Management Item) 10- 20 mL 10-20 mL IV As often as necessary prn Nathalie Bang APRN-CNP sodium chloride flush 0.9% 10-20 mL 10-20 mL IV As often as necessary prn Nathalie Bang APRN-CNP Physical Exam Vital Signs: Temp: 98.7 F (37.1 C) | BP: 119/74 | Pulse: 63 | Resp: 16 | Pain Ratin (out of 10) | Weight: 71.5 kg (157 lb 9.6 oz) | O2 Device: Room Air | SpO2: 96 % Maximum Temperatures (last 24 hours) Temperature Maximum Max Temp 98.7 F (37.1 C) Vital Signs Min/Max (last 24 hours) Flowsheet Row Name Min Max Temp 98.4 F (36.9 C) 98.7 F (37.1 C) BP: Systolic 119 139 BP: Diastolic 70 74 Pulse 63 66 Resp 16 16 SpO2 96 % 97 % Wt Readings from Last 3 Encounters: 04/03/21 71.5 kg (157 lb 9.6 oz) 03/24/21 72.4 kg (159 lb 9.6 oz) 03/03/21 73.5 kg (162 lb 1.6 oz) Intake and Output: 04/03 07 - 04/04 0659 In: 3811 [Oral:240] Out: 2225 [Urine:1725] General Appearance: alert,and in no distress Eyes: sclera anicteric HENT: no oral sores or thrush noted. Neck: supple, Lungs: no rales or rhonchi, equal air entry on both sides Heart: normal rate, normal S1, S2 Abdomen: soft, nontender, nondistended, Neurological: alert, oriented, no focal deficit Mental Status: normal mood, behavior Extremities: no pedal edema, Skin: no rashes, Labs Recent Labs 04/02/21 0804/03/21 0704/04/21 0513 WBC 8.0 6.7 5.7 HEMOGLOBIN 10.3* 10.1* 12.0 HEMATOCRIT 31.6* 31.5* 37.2 PLTCOUNT 242 211 258 NEUTROABS 7.0 5.0 3.9 Recent Labs 04/02/21 0804/03/21 0704/04/21 0513 BUN 10 11 14 CREATSERUM 0.70 0.65 0.65 NA 138 141 142 POTASSIUM 3.5 3.1* 3.3* CL 107 109 109 CO2 22 25 26 CA 8.0* 7.8* 8.0* PROTEINTOTAL 6.0 5.5* 6.6 ALBUMIN 3.2* 2.9* 3.4* ALKPHOS 66 56 62 AST 13 13 13 ALT 9 9 10 BILITOTAL 0.3 0.2 0.3 MAGNESIUM 2.1 2.2 2.3 New Serna MD [facility] Mariana Richardson [facility] - 04/04/2021 11:16 AM CDT TPN per Pharmacy Ms. Singleton is on day 3 of TPN per pharmacy protocol. Plan for today is: increase to 100% AA, 75% CHO and lipids. Increase K in TPN. KCl replaced outside of TPN. Pharmacy will continue to monitor and if indicated, adjust daily per the Pharmacy and Therapeutics Committee approved TPN consult service policy. Thank you- Mariana Richardson [facility] Yousuf Franklin MD - 04/04/2021 9:43 AM CDT [facility] Surgery Progress Note Sabrina Singleton Hospital day 4 Brief overview: Hospital Day 4, patient is a 75-year-old woman with history of metastatic breast cancer currently admitted for small bowel obstruction at the duodenal level. She has right-sided pleural effusion. Also has history of right subclavian vein thrombosis. Plan is for patient to undergo operative management of this on Saturday. NPO on TPN until then. Subjective: No acute events overnight. Feels well. Pain well controlled Denies fevers chills, chest pain, N/V, SOB Denies flatus, BM NPO Ambulating Urinating without difficulty Objective: Current Vital Signs Temp: 98.4 F (36.9 C) BP: 139/73 Pulse: 63 O2 Device: Room Air Resp: 16 Pain Ratin (out of 10) Weight: 71.5 kg (157 lb 9.6 oz) SpO2: 96 % General: NAD, alert, cooperative HEENT: Normocephalic, eyes, nose, mouth grossly normal, mucosa pink and moist Heart: Normal rate, limbs warm and well perfused Chest: Normal work of breathing, O2 sats are good on room air Abd: Soft, no rebound or guarding Extremities: Right arm edema. No pedal edema. I/O Intake/Output Summary (Last 24 hours) at 04/04/2021 0944 Last data filed at 04/04/2021 0721 Gross per 24 hour Intake 3811 ml Output 2325 ml Net 1486 ml Labs Lab Results Component Value Date WBC 5.7 04/04/2021 HEMOGLOBIN 12.0 04/04/2021 PLTCOUNT 258 04/04/2021 Lab Results Component Value Date NA 142 04/04/2021 POTASSIUM 3.3 (L) 04/04/2021 CL 109 04/04/2021 CO2 26 04/04/2021 BUN 14 04/04/2021 CREATSERUM 0.65 04/04/2021 GLUCOSE 103 (H) 04/04/2021 CA 8.0 (L) 04/04/2021 PHOSPHORUS 3.8 04/04/2021 ALBUMIN 3.4 (L) 04/04/2021 Lab Results Component Value Date ALKPHOS 62 04/04/2021 BILIDIRECT 0.3 02/10/2019 BILIINDIRECT 0.3 02/10/2019 BILITOTAL 0.3 04/04/2021 AST 13 04/04/2021 ALT 10 04/04/2021 Imaging: MRI abdomen, read pending Assessment: Sabrina Singleton is a 75yr old female patient with metastatic breast cancer currently admitted for small bowel obstruction at the duodenal level. PROBLEMS Anemia d/t cancer. Hgb stable Malnutrition history of DVT Hypokalemia (3.3) Plan Plan is for patient to undergo surgical management of her malignant SBO on Saturday Repleted K with 40mEq in D5 IVF: only TPN NPO + ice chips Pain control with Tylenol, Dilaudid PRN Abx: None Yousuf Franklin MD Mobile Battery Technician, PGY1 Associated attestation - Sarah Joshua MD - 04/05/2021 4:05 PM CDT I discussed the patient with the resident and personally interviewed and examined the patient. I verified in the medical record all resident documentation/findings, including history, physical exam, and medical decision making, and I agree with the resident's documentation. Awaiting path review of biopsies, but tentative plan for DaVinci Xi assisted robotic gastrojejunostomy for palliative intent was discussed. We also discussed the alternative plan for duodenal stent, which would be less durable and would carry risk of migration, ingrowth, and clogging with meals. Since her triple positive metastatic breast cancer is well controlled, her prognosis is really determined by the origin of the duodenal/pancreatic malignancy, pathology pending. Risks and Goals: Palliative intent goals were discussed to bypass the malignant duodenal obstruction. Risks including bleeding, infection, anastomotic leak, and venous thromboembolism were reviewed and she agrees to proceed. Sarah Joshua MD, PhD, MPH, FACS, FSSO call or contact centre manager Division of Surgical Oncology Fe Bowie MD - 04/04/2021 1:00 AM CDT [facility] PATIENT NAME: SABRINA SINGLETON I. DATE OF SERVICE: 04/04/2021 GEO: [id number] A 75-year-old female with metastatic breast cancer admitted to the hospital with abdominal discomfort, nausea, vomiting, inability to tolerate any oral intake. 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 Biopsies were obtained. Jejunum wasnormal. Patient was evaluated by surgical oncology. She was also noted and evaluated by her primary oncologist. Based on her prognosis and survival, a decision was made that she would benefit from gastrojejunal bypass rather than stenting procedure. Currently waiting to have this procedure completed after the surgical team has everything in place. INTERVAL HISTORY: Continues to be on NG with intermittent suction. On TPN, tolerating well. Endorsed having insomnia issues overnight. Discussed and examined patient in presence of care team. REVIEW OF SYSTEMS: CONSTITUTION: No fever or chills. RESPIRATORY: No new cough or dyspnea. CARDIOVASCULAR: No chest pain or palpitations. ABDOMEN: No belly pain at this point. CENTRAL NERVOUS SYSTEM: No headache or dizziness. PHYSICAL EXAMINATION: VITALS: Reviewed. CONSTITUTIONAL: No distress. RESPIRATION: Bilateral air entry present. CARDIOVASCULAR SYSTEM: S1, S2 heard. ABDOMEN: Soft, nontender. Bowel sounds present. CENTRAL NERVOUS SYSTEM: Alert, oriented x3. LABS: Reviewed. ASSESSMENT: Right breast cancer, ER positive, VA positive, HER2/marlene positive. Small bowel obstruction at the duodenal level, electrolyte imbalance, hypokalemia, hypertension. PLAN: Continue TPN. Continue NG to low intermittent suction. Continue as needed pain medications. Use p.r.n. blood pressure medications IV as patient cannot have oral medications at this time. Potassium supplementation. IV Ativan for anxiety and sleep overnight trial. Continue n.p.o. status. TIME SPENT: Greater than 35 minutes. Greater than 50% of the time was spent in counseling, coordination and discussion with team members and subspecialty. Fe Bowie MD Receipt: [id number] Trans ID: [id number] FIELD MECHANICAL METER TESTER CST uptaNew MD - 04/03/2021 8:47 PM CDT HEMATOLOGY ONCOLOGY CONSULT NOTE Date of Consult: 04/03/2021 NAME: Sabrina Singleton is a 75yr female PCP: Helen Cardenas MD CSN: [id number] Reason for Consult: Breast Cancer. SBO Requesting Provider: Dominique Valladares* Impression / Plan 1. Right breast cancer ER positive VA positive HER-2/marlene positive. Patient receiving treatment with Herceptin Perjeta and Femara for the last over 1-1/2 years and has been remaining stable disease and in near complete remission. Her cancer is doing well up until my last evaluation few weeks ago. Tumor markers are essentially normal. 2. Now admitted for small bowel obstruction at the duodenal level. Etiology is unclear. I saw andreviewed her CT scan done on March 31, 2021. I did not see any obvious mass in the abdomen that couldexplain the duodenal obstruction. However there can be intramural mass or other pathology that cannot be clearly delineated by the CT scan. MRI was done and results are pending. 3. Anemia due to cancer. No transfusion required at this time. 4. Hypoalbuminemia due to cancer and malnutrition. Patient is on TPN. I discussed the case with patient's surgical attending Dr. Joshua. Since patient cancer has been stable and near complete remission and there is survival chance of another to 3 years I recommended thatshe undergo surgery to to relieve this obstruction. We discussed about 2 procedures. Neither patient can have a stent. However the stent would only last weeks to months and will require replacement and may be even stent complications may occur. Other would be to do a bypass surgery. Since her cancer has been stable and well controlled I recommended that we do a laparoscopic bypass surgery. Thiswill help in long- term control of symptoms. Even if this obstruction is due to malignancy bypass islikely to provide better palliation. 5. Previous history of DVT. Recommended to keep her on DVT prophylaxis. I sincerely thank you for allowing me to participate in the care of your patient. Please do not hesitate to call me if you have any questions or concerns. CC / HPI Chief Complaint Patient presents with Nausea Pt arrives with [facility] after having nausea and vomiting for a while. Pt is a cancer pt and recieves treatment here. No vomiting now, just naseous. She is a 75-year-old woman with history of metastatic breast cancer currently admitted for small bowel obstruction at the duodenal level. She is under my care for breast cancer therapy and I have beenasked to provide input in her management for possible surgery. Patient has history of metastatic breast cancer ER positive VA positive HER- 2/marlene positive by FISH and metastatic disease to lung with right-sided pleural effusion, bones and liver first diagnosed in August 2018. She is currently on Herceptin Perjeta and Femara which was started in March 2020. Lasttreatment was given on March 24, 2021. She also receives Xgeva monthly injection for bone metastases. Her disease has been fairly stable and near complete remission. 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 She is not on anticoagulation anymore. She has chronic right upper extremity edema due to venous thrombosis in the past as well as extensive metastatic lymph node involvement in the axilla. She has right-sided pleural effusion. This has been requiring thoracentesis still periodically every 1-2 months. She was admitted to the hospital on March 31, 2021 with complaints of intermittent nausea and vomitingfor the last few days but got progressively worse over 2 days prior to admission. Unable to tolerate anything down. No fever or no chills. No abdominal pain. When she came to the emergency room with these complaints she had a CT scan of the abdomen done which showed thickening of the proximal duodenum and distention of the stomach. Indicating small bowel obstruction at the duodenal level. Patient evaluated by surgery and contemplating on type of procedure that needs to be done to alleviate the duodenal obstruction. Patient oral intake minimal. She is receiving TPN. She has an NG tube. Denies any abdominal pain at this time. She has nausea but no more vomiting. No bowel movement yet. No cough no shortness ofbreath. No fever. Other review of system unremarkable. ECOG Performance Status 2 Medications Current Facility-Administered Medications Medication Dose Route Frequency Provider Last Rate Last Admin potassium chloride 40 mEq in dextrose 5% 500 mL 40 mEq IV Now Dandy Rowell MD sodium phosphates 30 mmol in dextrose 5% 250 mL 30 mmol IV Now Dandy Rowell MD phenol (CHLORASEPTIC) 1.4 % liquid/spray 2 spray 2 spray Mouth/Throat Every 2 hours prn Keiry Valladares MD TPN (parenteral nutrition (ADULTS AND CHILDREN 40kg or GREATER) IV daily Keiry Valladares MD 47.6 mL/hr at 04/03/21 1840 New Bag at 04/03/21 1840 HYDROmorphone (DILAUDID) injection solution (conc: 1 mg/mL) 0.5-1 mg 0.5-1 mg IV Every 3 hours prn Stefan Gerber DO 1 mg at 04/02/21 2223 hydrALAZINE (APRESOLINE) injection solution 10 mg 10 mg IV Every 4 hours prn Lizz Mcduffie MD ondansetron (ZOFRAN) injection solution 4 mg 4 mg IV Every 15 minutes prn Sofía Beckham DO 4 mg at 03/31/21 1202 sodium chloride 0.9% flush (adult) 10 mL 10 mL IV 2 times a day and prn Lizz Mcduffie MD10 mL at 04/02/21 2228 nalOXone (NARCAN) injection solution (vial) 0.4 mg 0.4 mg Injection Every 2 minutes prn Lizz Mcduffie MD nalOXone (NARCAN) injection solution (vial) 0.2 mg 0.2 mg Injection Every 2 minutes prn Lizz Mcduffie MD acetaminophen (TYLENOL) tablet 650 mg 650 mg Oral Every 4 hours prn Lizz Mcduffie MD 650mg at 03/31/212207 melatonin tablet 3 mg 3 mg Oral Bedtime prn Lizz Mcduffie MD 3 mg at 03/31/212207 ondansetron (ZOFRAN ODT) dispersible tablet 4 mg 4 mg Oral 4 times a day prn Lizz Mcduffie MD And ondansetron (ZOFRAN) injection solution 4 mg 4 mg IV 4 times a day prn Lizz Mcduffie MD famotidine (PEPCID) tablet 20 mg 20 mg Oral 2 times a day prn Lizz Mcduffie MD hEParin 100 units/ mL injection for heplock FLUSH 5 mL IV PRN per parameter Favian Rubin MD 500 Units at 03/31/21 1709 And sodium chloride 0.9% flush (adult) 10 mL 10 mL IV Daily and prn Favian Rubin MD Facility-Administered Medications Ordered in Other Encounters Medication Dose Route Frequency Provider Last Rate Last Admin hEParin 100 units/ mL injection for heplock FLUSH 500 Units IV 1 time Tracy Frias APRN-CNP sodium chloride 0.9% prefilled 10 mL syringe (Materials Management Item) 10- 20 mL 10-20 mL IV As often as necessary prn Nathalie Bang APRN-CNP sodium chloride flush 0.9% 10-20 mL 10-20 mL IV As often as necessary prn Nathalie Bang APRN-CNP Allergies Allergies Allergen Reactions Penicillin Hives (High) Tetracyclines Hives (High) Arimidex [Anastrozole] Rash Aspirin Tachycardia Ciprofloxacin Unknown/Not Verified Influenza Vaccines Other (Specify in Comments) Parasethesia Lactose [Milk/Dairy Products] Stomach Pain Pt to self monitor. Macrodantin [Nitrofurantoin] Rash Singulair [Montelukast Sodium] Other (Specify in Comments) Loss of appetite Sulfa Drugs Other (Specify in Comments) Stiff joints Medical / Surgical / Family History Past Medical History: Diagnosis Date Breast cancer (HCC) CHF (congestive heart failure) (HCC) COPD (chronic obstructive pulmonary disease) (HCC) Degenerative joint disease of right hip Hyperlipidemia Hypertension Pleural effusion on right Past Surgical History: Procedure Laterality Date SURGERY lipoma removal left upper back TONSILLECTOMY age 7 TUBAL LIGATION UPPER ENDOSCOPY N/A 04/01/2021 Procedure: UPPER ENDOSCOPY;; Surgeon: Jose Johansen MD Family History Problem Relation Age of Onset Hypertension Father Heart Attack Father 70 possibly had previous SC Hypertension Mother Diabetes Mother Hx Type ll Obesity Brother had gastric bypass which resolved his HTN, diabetes. Diabetes Daughter lost >100 lbs which resolved her diabetes Problem List Patient Active Problem List Diagnosis Essential hypertension Hyperlipidemia Osteoarthritis of right hip COPD (chronic obstructive pulmonary disease) (HCC) CHF (congestive heart failure) (HCC) Shortness of breath Pleural effusion on right Malignant neoplasm of overlapping sites of right breast in female, estrogen receptor positive (HCC) Liver metastasis (HCC) Bone metastasis (HCC) Recurrent pleural effusion on right Metastatic breast cancer (HCC) High risk for chemotherapy-induced infectious complication Thrombosis of right subclavian vein (HCC) Lymphedema of right upper extremity Pleural effusion, malignant SBO (small bowel obstruction) (HCC) Social History Social History Tobacco Use Smoking status: Never Smoker Smokeless tobacco: Never Used Substance Use Topics Alcohol use: No Alcohol/week: 0.0 standard drinks ROS ENT:no mouth sores, no sore throat Respiratory: no cough, Cardiovascular: no chest pain, palpitation Heme: no bleeding, no bruising Genito-Urinary: no dysuria, no trouble voiding, no hematuria Musculoskeletal: No new bone or muscle pain Lymphatics: no lymph node enlargement noted by patient Neurological: no weakness, no numbness, no tingling, no headache Dermatological: no rash, no other skin changes Psychological: mood normal Physical Exam BP 125/69 Pulse 72 Temp 99.8 F (37.7 C) Resp 16 Ht 1.702 m (5' 7") Wt 71.5 kg (157 lb 9.6 oz) SpO2 96% BMI 24.68 kg/m2 Body mass index is 24.68 kg/m. General: Comfortable, no obvious distress Eyes: Sclera anicteric, no pallor Mouth: No oral lesions or thrush. CV: Regular rhythm, normal rate. Resp: Clear to auscultation bilaterally, decreased breath sounds on right. Abdomen: Soft, non tender, non distended. No hepatomegaly, no splenomegaly, Extremities: Right UE lymphedema. No other peripheral edema, Musculoskeletal: No bone or muscle tenderness Lymphatic: No palpable lymphadenopathy Neuro: No focal deficits on limited exam. No obvious cranial nerve deficits. Skin: No rashes, Psych: Mood stable good insight Labs/Imaging Lab Results Component Value Date WBC 6.7 04/03/2021 NUCRBC 0 04/03/2021 RBC 3.63 (L) 04/03/2021 HEMOGLOBIN 10.1 (L) 04/03/2021 HEMATOCRIT 31.5 (L) 04/03/2021 MCV 86.8 04/03/2021 MCH 27.8 04/03/2021 MCHC 32.1 04/03/2021 RDW 17.4 (A) 12/25/2018 PLTCOUNT 211 04/03/2021 NEUTROPCT 74.4 04/03/2021 BANDPCT 10 12/18/2018 LYMPHSPCT 14.2 04/03/2021 MONOSPCT 8.2 04/03/2021 EOSPCT 0.9 04/03/2021 BASOPHILPCT 0.4 04/03/2021 METAMYELOPCT 1 12/18/2018 MYELOCYTEPCT 1.0 12/11/2018 Lab Results Component Value Date GLUCOSE 117 (H) 04/03/2021 BUN 11 04/03/2021 CREATSERUM 0.65 04/03/2021 BCRATIO 16.9 04/03/2021 NA 141 04/03/2021 POTASSIUM 3.1 (L) 04/03/2021 CL 109 04/03/2021 CO2 25 04/03/2021 CA 7.8 (L) 04/03/2021 PROTEINTOTAL 5.5 (L) 04/03/2021 ALBUMIN 2.9 (L) 04/03/2021 ALKPHOS 56 04/03/2021 AST 13 04/03/2021 ALT 9 04/03/2021 BILITOTAL 0.2 04/03/2021 Recent Labs 02/03/21 1020 03/03/21 0909 03/24/21 1020 [id number] 16.5 18.7 15.5 I have reviewed laboratory studies myself. I have reviewed images myself. [place] S[place]. [facility] CC: 1. Dominique Valladares* 2. Helen Cardenas MD Lamar Rodriguez, PHARM D - 04/03/2021 1:03 PM CDT TPN per Pharmacy Ms. Singleton is on day 2 of TPN per pharmacy protocol. Plan for today is: Continue current TPN. WIll hold off on advancing due to drop in electrolytes. Pharmacy will continue to monitor and if indicated, adjust daily per the Pharmacy and Therapeutics Committee approved TPN consult service policy. Thank you- Lamar Rodriguez, PHARM D Dandy Rowell MD - 04/03/2021 11:05 AM CDT Assessment/Plan: 75F Past medical history of hypertension, hyperlipidemia, COPD, CHF,history ofbreast cancer withmetastasis to the liver and bone,the current right pleural effusion(thoracentesis as needed), history of thrombosis of the right subclavian vein, who presents with nausea and epigastric abdominal pain.For the past month patient has been having intermittent nausea and vomiting. #Acute Nausea and vomiting 2/2 proximal duodenal thickening #Breast cancer w/ mets to bone, liver, has recurrent pleural effusion currently on Herceptin, Perjata, andFemaraXgeva #Cholelithiasis Intermittent N/V for 1 month, went to [facility] 1 month ago for same symptoms.Given supportive care.Complains of increased generalized weakness. Since yesterday, has been having N/V. Unable to tolerate diet. 03/31/21 CT AP:Long segment circumferential thickening of the proximal duodenum which is new when compared with the prior exam from 4 weeks ago. The stomach is distended with fluid and duodenal thickening may be causing partial small bowel obstruction. Duodenal thickening is favored to be related to peptic ulcer disease or infection. Neoplasm would also be a consideration but seems less likely given the normal appearance of the proximal duodenum on the exam from 4 weeks ago. Gastroenterology consultation is recommended. 04/01/21 RUQ US: Cholelithiasis. Gallbladder wall thickening in part relates to contracted status of the gallbladder. The presence of chronic cholecystitis not excluded. No features of acute cholecystitis suggested sonographically. Upper limits normal common bile duct measuring 6 mm. No intrahepatic ductal dilatation is seen. 04/02/21 EGD: Food in the lower third of the esophagus. 4 cm hiatal hernia. A medium amount of food (residue) in the stomach. Non-bleeding erosive gastropathy. Retained food in the duodenum. 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 Biopsied. Plan: -NGT to [facility] consult, they discussed with surgical oncology, they requested MRCP, this was done and is pending read. They requested the patient transferred to [facility], this will be done today. - GI consult -zofran prn for now, takes prochlorperazine at home, may add IV/IM if nausea not under control -keep NPO -TPN via port per nutrition and pharmacy #Hx of uti was on ciprofloxacin, therapy completed UA shows no WBC nor bacteria No dysuria or hematuria Chronic medical conditions:- -liver cirrhosis -leiomyomatous uterus -recurrent right pleural effusion -HTN- doxazosin, holding -neuropathic pain - gabapentin 100mg TID -effusion - lasix 40mg BID -flexeril 5mg TID -chemo adjuvant - 2.5mg daily IVF:LR at 75 DVT ppx:none for potential procedure Diet:NPO Code Status:DNR/DNI Pain Control: acetaminophen for mild pain. Oxy 5 prn Disposition: Inpatient - awaiting medical stability Chief Complaint: Patient admitted to the hospital on 03/31/2021 for a small bowel obstruction, secondary to malignancy. Subjective: No acute events reported overnight. ROS: Patient denies any chest pain, dyspnea, abdominal pain, nausea, vomiting, headache or dizziness. Objective: Vital signs in last 24 hours: Vitals: 04/02/21 1112 04/02/21 1528 04/02/21 2309 04/03/21 0734 BP: 109/61 112/61 115/67 122/70 Pulse: 63 59 61 64 Resp: 16 14 14 16 Temp: 98.3 F (36.8 C) 98.1 F (36.7 C) 98 F (36.7 C) 98.6 F (37 C) SpO2: 95% 98% 96% 96% Weight: Height: Weight change: Vitals Min/Max Last 24 Hours Vital Signs Min/Max (last 24 hours) Flowsheet Row Name Min Max Temp 98 F (36.7 C) 98.6 F (37 C) BP: Systolic 109 122 BP: Diastolic 61 70 Pulse 59 64 Resp 14 16 SpO2 95 % 98 % Intake and Output Last 24 Hours 04/02 0700 - 04/03 0659 In: - Out: 500 Physical Exam: General Appearance: alert, well appearing, and in no distress Mental Status: oriented to person, place, and time Chest: b/l good air entry, clear to auscultation, no wheezes, rales or rhonchi, symmetric air entry Heart: normal rate, regular rhythm, normal S1, S2, no murmur Abdomen: soft, nontender, nondistended, faint bowel sounds present, NG tube in place, minimal drainage. Neurological: normal speech, no gross sensory or motor deficits noted Extremities: No pedal edema, no tenderness Associated attestation - Keiry Valladares MD - 04/03/2021 12:24 PM CDT I discussed the patient with the resident and personally interviewed and examined the patient. I verified in the medical record all resident documentation/findings, including history, physical exam, and medical decision making, and I agree with the resident's documentation. MD Raf Cox Jason J, MD - 04/03/2021 9:05 AM CDT Surgery Progress Note Date of Service: 04/03/2021 Subjective: No acute events overnight. Pain well controlled after getting dilaudid last night. Has a sore throat. Denies nausea, vomiting, fevers, chills, chest pain, SOB, belching, bloating. Voiding, passing flatus and had a BM yesterday. NG tube in place with scant clear output Ambulating in the halls Objective: Blood pressure 122/70, pulse 64, temperature 98.6 F (37 C), resp. rate 16, height 170.2 cm (67"), weight 70.1 kg (154 lb 8 oz), SpO2 96 %, not currently . UOP: x1 unmeasured N ml Physical Exam: General: no acute distress laying in bed NG: scant clear output Respiratory: CTAB, anteriorly Cardiac: RRR Abdomen: soft, non-distended, non-tender Extremities: no edema Neuro: alert Skin: pink and warm Labs: Lab Results Component Value Date WBC 6.7 04/03/2021 HEMOGLOBIN 10.1 (L) 04/03/2021 HEMATOCRIT 31.5 (L) 04/03/2021 PLTCOUNT 211 04/03/2021 Lab Results Component Value Date NA 141 04/03/2021 POTASSIUM 3.1 (L) 04/03/2021 CL 109 04/03/2021 CO2 25 04/03/2021 BUN 11 04/03/2021 CREATSERUM 0.65 04/03/2021 BCRATIO 16.9 04/03/2021 GLUCOSE 117 (H) 04/03/2021 Lab Results Component Value Date CA 7.8 (L) 04/03/2021 PHOSPHORUS 1.6 (L) 04/03/2021 MAGNESIUM 2.2 04/03/2021 Assessment/Plan: 75 year old female with metastatic right breast cancer on chemo admitted on 03/31 with a SBO. EGD 04/01showed acquired duodenal stenosis, suspected due to malignancy. Abdominal pain currently controlled and reports having a bowel movement yesterday. Pathology pending from EGD and MRCP pending. Hypokalemia and hypophosphatemia. - Follow up MRCP results - Follow-up pathology results from EGD - NPO, TPN, NG tube to [facility] - Maintenance IVF - Replace electrolytes as needed - Continue cares per primary team - Plan to transfer to [facility] today John Paul Carbone D.O. PGY-1 Surgery Resident Pager #[phone] Associated attestation - Sarah Joshua MD - 04/03/2021 4:21 PM CDT I saw the patient with the resident. I was present during the critical or velazquez portions of the service furnished by the resident. I verified in the medical record, all residents documentation/findings, including history, physical exam, and medical decision making and I agree with the resident's documentation. Patient comfortable with NGT in place. We discussed findings on imaging with suggestion of an obstructive process near duodenum. Pathology pending. Curative intent and palliative intent options discussed with the patient. Based on prognosis given she has a favorable HER2+/ER+/VA+ breast cancer, would favor robotic or open gastrojejunostomy over aduodenal stent as this would provide a longer term result without worrying about patency or expectedingrowth and reinterventions. After discussion with Dr. Serna, her oncologist, he also favors an approach that would potentially provide several years worth of palliation since she has been doing well with therapy. We will tentatively schedule for robotic GJ on Saturday, which will allow us time to review her pathology report priorto intervention. Sarah Joshua MD, PhD, MPH, FACS, FSSO call or contact centre manager [facility], Lizz Greenwood MD - 04/02/2021 12:52 PM CDT Images from the original note were not included. DAILY PROGRESS NOTE Patient ID: Sabrina Singleton is a 75yr female admitted on 03/31/2021 Brief Summary: Past medical history of hypertension, hyperlipidemia, COPD, CHF, history of breast cancer with metastasis to the liver and bone, the current right pleural effusion (thoracentesis as needed), history of thrombosis of the right subclavian vein, who presents with nausea and epigastric abdominal pain. For the past month patient has been having intermittent nausea and vomiting. Interval History/ROS Did well overnight, no acute events. NGT was still actively draining. Denies current N/V. Discussed initiating TPN, patient is in agreement. Patient is in touch with palliative care at home. Patient expressed that she would like to know biopsy result and management options prior to making decision in regards to doing potential procedures. "If treatment is worse than disease", may consider hospice. Expressed that if she has to be dischargedto a facility in tentative future, she requests [facility] bed. Impression / Plan #Acute Nausea and vomiting 2/2 proximal duodenal thickening #Breast cancer w/ mets to bone, liver, has recurrent pleural effusion currently on Herceptin, Perjata, andFemaraXgeva #Cholelithiasis Intermittent N/V for 1 month, went to [facility] 1 month ago for same symptoms. Given supportive care. Complains of increased generalized weakness. Since yesterday, has been having N/V. Unable to tolerate diet. -03/31/21 CT AP: Long segment circumferential thickening of the proximal duodenum which is new when compared with the prior exam from 4 weeks ago. The stomach is distended with fluid and duodenal thickening may be causing partial small bowel obstruction. Duodenal thickening is favored to be related to peptic ulcer disease or infection. Neoplasm would also be a consideration but seems less likely given the normal appearance of the proximal duodenum on the exam from 4 weeks ago. Gastroenterology consultation is recommended. -04/01/21 RUQ US: Cholelithiasis. Gallbladder wall thickening in part relates to contracted status ofthe gallbladder. The presence of chronic cholecystitis not excluded. No features of acute cholecystitis suggested sonographically. Upper limits normal common bile duct measuring 6 mm. No intrahepatic ductal dilatation is seen. -04/02/21 EGD: Food in the lower third of the esophagus. 4 cm hiatal hernia. A medium amount of food(residue) in the stomach. Non-bleeding erosive gastropathy. Retained food in the duodenum. 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 Biopsied. LA normal -NGT to [facility] -[facility] consult - GI consult -zofran prn for now, takes prochlorperazine at home, may add IV/IM if nausea not under control -keep NPO -TPN via port per nutrition and pharmacy #Hx of uti was on ciprofloxacin, today is day 7 UA shows no WBC nor bacteria No dysuria or hematuria -dc abx Chronic medical conditions: - hold home meds for today -liver cirrhosis -leiomyomatous uterus -recurrent right pleural effusion -HTN - doxazosin -neuropathic pain - gabapentin 100mg TID -effusion - lasix 40mg BID -flexeril 5mg TID -chemo adjuvant - 2.5mg daily IVF: LR at 75 DVT ppx: none for potential procedure Diet: NPO Code Status: DNR/DNI Pain Control: acetaminophen for mild pain. Oxy 5 prn Disposition: Inpatient - awaiting medical stability. Physical Exam Temp: 98.3 F (36.8 C) BP: 109/61 Pulse: 63 O2 Device: Room Air Resp: 16 Pain Ratin (out of 10) Weight: 70.1 kg (154 lb 8 oz) SpO2: 95 % Date 04/01/21 07 - 04/02/21 0659 04/02/21 07 - 04/03/21 0659 Shift 6617-4451 6878-9534 24 Hour Total 3763-9971 3941-1100 24 Hour Total INTAKE IV 1458 1458 I.V. 1158 1158 Volume (mL) (lactated ringers IV solution) 300 300 Shift Total 1458 1458 OUTPUT Urine Unmeasured Urine Occurrence 3 x 3 x 1 x 1 x Stool Unmeasured Stool Occurrence 0 x 0 x 0 x 0 x 0 x Shift Total NET 1458 1458 Weight (kg) 70.1 70.1 70.1 70.1 70.1 70.1 General: Awake, A&Ox3 and not in distress RS: CTA, no crackles, no wheezes CVS: RRR, Normal S1S2, no murmurs, rubs or gallops GI: BS present, soft, nondistended, non tender NS: Alert, oriented, normal speech MSK: No pedal edema Derm: Warm, no rash Psych: Normal affect, behavior Labs/lines/drains Labs (Last day) 04/02/21 0810 - 04/02/21 0810 CBC 04/02/21 0810 CBC WBC 4.0-11.0 (K/uL) 8.0 RBC 3.80-5.30 (M/uL) 3.64 Hemoglobin 11.5-15.8 (g/dL) 10.3 Hematocrit 35.0-45.0 (%) 31.6 MCV 80.0-98.0 (fL) 86.8 MCH 25.5-34.0 (pg) 28.3 MCHC 31.5-36.5 (g/dL) 32.6 RDW-CV 11.5-15.5 (%) 12.6 RDW-SD 35.5-50.0 (fl) 40.1 Platelet Count 140-400 (K/uL) 242 MPV 8.5-12.0 (fL) 9.5 04/02/21 0810 - 04/02/21 0810 CHEMISTRY 04/02/21 0810 04/02/21 0810 04/02/21 0810 CHEMISTRY Glucose 70-100 (mg/dL) 141 Sodium 135-145 (meq/L) 138 Potassium 3.5-5.3 (meq/L) 3.5 Chloride 99-110 (meq/L) 107 CO2 20-29 (meq/L) 22 Anion Gap with K 6-20 (meq/L) 13 BUN 6-22 (mg/dL) 10 Creatinine 0.60-1.10 (mg/dL) 0.70 BUN/Creatinine Ratio 10.0-25.0 14.3 Calcium 8.5-10.5 (mg/dL) 8.0 Corrected Calcium 8.5-10.5 (mg/dL) 8.6 Phosphorus 2.5-4.5 (mg/dL) 2.3 Magnesium 1.8-2.4 (mg/dL) 2.1 Bilirubin Total 0.2-1.2 (mg/dL) 0.3 Alkaline Phosphatase 30-150 (U/L) 66 ALT - SGPT 0-55 (U/L) 9 AST - SGOT 0-35 (U/L) 13 Protein Total 6.0-8.2 (g/dL) 6.0 Albumin 3.5-5.0 (g/dL) 3.2 eGFR >=60 (mL/min/1.73m2) >90 eGFR Non- >=60 (mL/min/1.73m2) 82 04/02/21 0810 - 04/02/21 0810 DIFFERENTIAL 04/02/21 0810 DIFFERENTIAL Seg Neut Absolute 1.8-8.0 (K/uL) 7.0 Lymphocytes Absolute 0.8-4.1 (K/uL) 0.6 Monocytes Absolute 0.0-1.0 (K/uL) 0.4 Eosinophils Absolute 0.0-0.7 (K/uL) 0.0 Basophil Absolute 0.0-0.2 (K/uL) 0.0 Immature Granulocyte Absolute 0.00-0.06 (K/uL) 0.09 Neutrophils Percent (%) 86.5 Neutrophils Abs. (Segs and Bands) (/uL) 7,000 Lymphocytes Percent (%) 7.2 Monocytes Percent (%) 5.1 Immature Granulocyte Percent (%) 1.1 Eosinophils Percent (%) 0.0 Basophil Percent (%) 0.1 Nucleated RBC (/100 WBC's) 0 04/01/21 1428 - 04/01/21 1428 GLUCOSE POINT OF CARE 04/01/21 1428 GLUCOSE POINT OF CARE Glucose POC 70-99 (mg/dL) 95 04/02/21 0810 - 04/01/21 1329 OTHER 04/02/21 0810 04/01/21 1329 OTHER Age (Years) 75 EGD [facility] Patient Name: Sabrina Singleton Procedure Date: 04/01/2021 1:29 PM Date of : 1945 Admit Type: Inpatient Age: 75 Gender: Female Surgeon: JOSE JOHANSEN MD Procedure: Upper GI endoscopy Indications: Abnormal CT of the GI tract, Suspected gastric outlet obstruction, Suspected duodenal obstruction Providers: JOSE JOHANSEN MD, KARENA ALLEN, YAMILEX, GURVINDER PAREDES, YAMILEX Medicines: General Anesthesia Complications: No immediate complications. Estimated Blood Loss: Estimated blood loss was minimal. Procedure: Pre-Anesthesia A ssessment: - Prior to the procedure, a History and Physical was performed, and patient medications and allergies were reviewed. The patient's tolerance of previous anesthesia was also reviewed. The risks and benefits of the procedure and the sedation options and risks were discussed with the patient. All questions were answered, and informed consent was obtained. Prior Anticoagulants: The patient has taken no previous anticoagulant or antiplatelet agents. ASA Grade Assessment: III - A patient with severe systemic disease. After reviewing the risks and benefits, the patient was deemed in satisfactory condition to undergo the procedure. After obtaining informed consent, the endoscope was passed under direct vision. Throughout the procedure, the patient's blood pressure, pulse, and oxygen saturations were monitored continuously. The Endoscope [id number] was introduced through the mouth, and advanced to t he second part of duodenum. The upper GI endoscopy was accomplished without difficulty. The patient tolerated the procedure well. Findings: Food was found in the lower third of the esophagus. A 4 cm hiatal hernia was present. A medium amount of food (residue) was found in the gastric fundus. Multiple dispersed, less than 5 mm non-bleeding erosions were found in the entire examined stomach. There were no stigmata of recent bleeding. Food (residue) was found in the duodenal bulb. An acquired malignant-appearing, intrinsic severe stenosis was found in the first portion of the duodenum and in the second portion of the duodenum and was traversed. Biopsies were taken with a cold forceps for histology. The examined jejunum was normal. NG tube as removed prior to procedure and replaced at end of procedure, confirmed a t 65cm at nares endoscopically through the diaphragmatic hiatus. Impression: - Food in the lower third of the esophagus. - 4 cm hiatal hernia. - A medium amount of food (residue) in the stomach. - Non-bleeding erosive gastropathy. - Retained food in the duodenum. 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 Biopsied. - Normal examined jejunum. Recommendation: - Await pathology results. - NG tube was replaced. Keep to LIS. - Consider start of TPN while awaiting pathology as i do not think any enteral nutrition will pass the stomach and the patient needs ongoing gastric suction for obstruction. - If malignant, can consider repeat EGD for duodenal stent placement vs palliative gastric bypass. - GI will sign off. call with questions or clinical deterioration. Jose Johansen MD JOSE JOHANSEN MD 04/01/2021 3:23:39 PM This report has been signed electronically.JOSE JOHANSEN MD Number of Addenda: 0 Note Initiated On: 04/01/2021 1:29 PM Total Procedure Duration Time 0 hours 25 minutes 53 seconds Scope In: 1:45:15 PM Scope Out: 2:11:08 PM Patient Lines/Drains/Airways Status Active Lines Name: Placement date: Placement time: Site: Days: IVAD 10/02/18 Chest Left 10/02/18 Chest 913 Other LDA 09/08/18 Thoracentesis Right Back 09/08/18 1543 936 Other LDA 09/17/18 Thoracentesis Right Back 09/17/18 1020 928 Drainage/Feeding Tube (For additional Intake rows, add Row 84901) 04/01/21 Nasal 04/01/21 1407Nasal less than 1 Incision 08/25/18 Right Breast Puncture site 1 08/25/18 1544 Breast 950 Incision 09/19/18 Anterior;Right;Lower;Quadrant Abdomen Puncture site 1 09/19/18 1515 [id number] Incision 02/10/19 Right;Lower;Quadrant Abdomen Puncture site 1 02/10/19 1428 Abdomen 781 Diagnostics and Labs All Reports, Vitals, Nursing Notes, pertinent Imaging and Labs Reviewed. Medical Decision Making All imaging and laboratory studies have been independently reviewed and interpreted. Associated attestation - Keiry Valladares MD - 04/03/2021 8:09 AM CDT DOS: 04/02/2021 I discussed the patient with the resident and personally interviewed and examined the patient. I verified in the medical record all resident documentation/findings, including history, physical exam, and medical decision making, and I agree with the resident's documentation. Note the following additions/corrections: Per Dr. Crum Surgery Attending - Reviewed case with Dr. 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 Requested MRCP to evaluate biliary tree, and transfer to [facility] [place]. No surgery planned until biopsy back - will be palliative. Will order MRCP and plan for Foreign transfer tomorrow. MD Stacy Cox Elena, MD - 04/02/2021 8:22 AM CDT [place]rina [place] Sing[place] 1945 [id number] 04/02/2021 TRACS - Progress Note Subjective: EGD per GI yesterday. Patient tolerated procedure without complications No pain this AM NAEON. NG tube in place with bilious appearing output overnight. No n/v. + flatus no BMs Ambulating independently to bathroom. Urinating without difficulty Objective: Vitals: Temp: 98.4 F (36.9 C) BP: 108/60 Pulse: 60 O2 Device: Room Air Resp: 16 Pain Ratin (out of 10) Weight: 70.1 kg (154 lb 8 oz) SpO2: 97 % Weight Admit Current Weight: 70.1 kg (154 lb 8 oz) I's and O's Intake/Output Summary (Last 24 hours) at 04/02/2021 0822 Last data filed at 04/01/2021 1414 Gross per 24 hour Intake 300 ml Output Net 300 ml Physical Exam: General: no acute distress HEENT: normocephalic atraumatic, ng tube in place. Respiratory: clear to auscultation Cardiac: RRR Abdomen: soft, non-distended, non-tender Extremities: no edema, radial and dorsalis pedis pulses equal Neuro: alert Skin: pink and warm Labs: Lab Results Component Value Date WBC 8.0 04/02/2021 HEMOGLOBIN 10.3 (L) 04/02/2021 HEMATOCRIT 31.6 (L) 04/02/2021 PLTCOUNT 242 04/02/2021 Lab Results Component Value Date NA 140 04/01/2021 POTASSIUM 3.8 04/01/2021 CL 107 04/01/2021 CO2 20 04/01/2021 BUN 14 04/01/2021 CREATSERUM 0.68 04/01/2021 BCRATIO 20.6 04/01/2021 GLUCOSE 95 04/01/2021 Lab Results Component Value Date CA 8.4 (L) 04/01/2021 PHOSPHORUS 4.2 04/01/2021 MAGNESIUM 2.0 04/01/2021 Assessment/Plan: 75yr year old female with h/o metastatic right breast cancer on chemo admitted with SBO. EGD yesterday showed acquired duodenal stenosis, suspected due to malignancy - follow-up on pathology results from EGD yesterday - diet: NPO, start TPN, Continue NG tube for gastric obstruction - maintenance IVF D5 1/2 NS 75 ml/hr - continue bowel regimen - rest of cares per primary team Chani Kumar MD General surgery resident Pager #[phone] 04/02/2021 Associated attestation - Rocio Crum MD - 04/07/2021 12:32 AM CDT Trauma/Acute Care Surgery Attending: I have seen and discussed the patient with the resident. The plan, as outlined in the note, was developed in collaboration with the resident following review of the history, physical exam, radiographsand events since admission. I have examined the patient and agree with the residents assessment and plan. 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 Discussed with Surgical Oncology, who recommend transfer to [place]. Needs to continue NPO/NGT/TPN. I've discussed the plan of care with the patient, who verbalized understanding. All questions answered. Rocio Crum MD MS FACS 04/07/2021 12:31 AM CDT Roseann Weaver MD - 04/01/2021 10:40 AM CDT Surgery Progress Note 04/01/2021 Subjective: No acute events overnight States that she is passing flatus, no bowel movements States she feels less bloated today Denies nausea Denies pain Objective: Temp: 98.1 F (36.7 C) BP: 102/60 Pulse: 66 O2 Device: Room Air Resp: 16 Pain Ratin (out of 10) Weight: 70.1 kg (154 lb 8 oz) SpO2: 94 % Gen: no acute distress HEENT: NG in place with minimal thin bilious output CV: RRR PULM: non-labored ABD: soft, nontender, mildly distended EXT: no swelling IV: 1158 UOP: 2x Labs/Imaging: Lab Results Component Value Date WBC 5.3 04/01/2021 HEMOGLOBIN 9.6 (L) 04/01/2021 PLTCOUNT 197 04/01/2021 CREATSERUM 0.68 04/01/2021 POTASSIUM 3.8 04/01/2021 MAGNESIUM 2.0 04/01/2021 Assessment: 75yr old female that was admitted on 03/31/21 with signs of small bowel obstruction. Plan: - Leave NG to LIWS today to allow for further decompression - Agree with GI consultation and plan for EGD - Cares per primary team Roseann Weaver MD Mobile Battery Technician, PGY-4 Pager #[phone] Associated attestation - Rocio Crum MD - 04/01/2021 11:20 AM CDT Trauma/Acute Care Surgery Attending: I have seen and discussed the patient with the resident. The plan, as outlined in the note, was developed in collaboration with the resident following review of the history, physical exam, radiographsand events since admission. I have examined the patient and agree with the residents assessment and plan. Patient no longer vomiting and feels better with NGT. Having flatus. NGT output is watery, not much bile. Suspect this is related to her duodenal inflammation. I've consulted GI, who plan for endoscopy today. Differential includes inflammation from large gallstone, as well as stress ulceration. I've discussed the plan of care with the patient, who verbalized understanding. All questions answered. Rocio Crum MD MS FACS 04/01/2021 11:18 AM CDT Frida Mckeon PHARM RECRUITING SPECIALIST - 04/01/2021 9:18 AM CDT 04/01/2021 9:18 AM CDT Patient was seen by pharmacy for medication reconciliation. Home medications have been reconciled and updated on the home medications list to match the patient's home usage. Medications Deleted: ciprofloxacin and doxycycline (recently finished antibiotics), acetaminophen Medications Added: none Medications Changed: Patient reports taking hydrocodone-acetaminophen once daily every evening, midodrine twice daily, and potassium chloride three times daily. Other information: Patient is currently not taking collagen, gabapentin, or prochlorperazine. Patient has not needed cyclobenzaprine for months as she has not had any muscle spasms. Prior to Admission Medications Prescriptions Last Dose Informant Patient Reported? Taking? Biotin 75146 MCG TABS 03/29/2021 Yes No Sig: Take 10,000 mcg by mouth 1 time per day COLLAGEN PO Not Taking at Unknown time Yes No Sig: Take by mouth 4 times a day Patient not taking: Reported on 04/01/2021 Cyanocobalamin (VITAMIN B-12) 5000 MCG LOZG 03/29/2021 at AM Self Yes No Sig: Take 5,000 mcg by mouth 1 time per day HYDROcodone-acetaminophen (NORCO) 5-325 mg tablet 03/29/2021 at PM No No Sig: Take 1 tablet by mouth every 6 hours as needed for moderate pain or severe pain. (Indications: Chronic Pain) Patient taking differently: Take 1 tablet by mouth every 6 hours as needed for moderate pain or severe pain Indications: Chronic Pain Patient takes 1 tablet daily in the evening. Multiple Vitamin (MULTI-VITAMIN) tablet 03/29/2021 Self Yes No Sig: Take 1 tablet by mouth 1 time per day. calcium carbonate-vitamin D (OSCAL 500 + VIT D) 500 mg-200 unit tablet 03/29/2021 Self Yes No Sig: Take 1 tablet by mouth 3 times a day with meals cyclobenzaprine (FLEXERIL) 5 mg tablet Greater than 1 Month No Yes Sig: Take 1 tablet (5 mg) by mouth 3 times a day as needed for muscle spasm doxazosin (CARDURA) 2 mg tablet 03/29/2021 at AM Self No No Sig: TAKE 1 TABLET BY MOUTH 1 TIME PER DAY. furosemide (LASIX) 40 mg tablet 03/29/2021 No No Sig: Take 1 tablet (40 mg) by mouth 2 times a day gabapentin (NEURONTIN) 100 mg capsule Not Taking at Unknown time No No Sig: Take 1 capsule (100 mg) by mouth 3 times a day Patient not taking: Reported on 04/01/2021 lactase (LACTAID) 3000 units TABS Past Month at Unknown time Self Yes Yes Sig: Take 3,000 Units by mouth as needed for other (Specify) letrozole (FEMARA) 2.5 mg tablet 03/29/2021 at PM No No Sig: Take 1 tablet (2.5 mg) by mouth 1 time per day magnesium oxide 250 MG TABS 03/29/2021 Self Yes No Sig: Take 250 mg by mouth 1 time per day midodrine (PROAMATINE) 2.5 mg tablet 03/29/2021 No No Sig: Take 1 tablet (2.5 mg) by mouth 1 time per day Patient taking differently: Take 2.5 mg by mouth 1 time per day Patient takes tablet twice daily (AMand PM) potassium chloride (KLOR-CON M20) 20 MEQ CR tablet 03/29/2021 Yes No Sig: Take 1 tablet (20 mEq) by mouth 2 times a day prochlorperazine (COMPAZINE) 10 mg tablet Not Taking at Unknown time Self No No Sig: Take 1 tablet (10 mg) by mouth 4 times a day as needed for nausea or vomiting Patient not taking: Reported on 04/01/2021 simethicone (MYLICON, GAS-X) 80 MG CHEW 03/27/2021 Self No Yes Sig: Take 2 tablets (160 mg) by mouth Every 4 hours as needed for flatulence vitamin D3, cholecalciferol, 1000 unit tablet 03/29/2021 No No Sig: Take 1 tablet (1,000 Units) by mouth 1 time per day Facility-Administered Medications: None Patient denies use of other inhalers, creams/ointments, eye/ear drops, patches or injectables, OTC, vitamins and /or other herbal products Frida Mckeon, PHARM RECRUITING SPECIALIST Associated attestation - Miguelangel Dumont PHARM D - 04/01/2021 9:29 AM CDT Comprehensive medication reconciliation performed by pharmacy salesperson and reviewed by clinical pharmacist for accuracy and completeness. Miguelangel Dumont, PharmD Lizz Mcduffie MD - 04/01/2021 7:23 AM CDT Images from the original note were not included. DAILY PROGRESS NOTE Patient ID: Sabrina Singleton is a 75yr female admitted on 03/31/2021 Brief Summary: Past medical history of hypertension, hyperlipidemia, COPD, CHF, history of breast cancer with metastasis to the liver and bone, the current right pleural effusion (thoracentesis as needed), history of thrombosis of the right subclavian vein, who presents with nausea and epigastric abdominal pain. For the past month patient has been having intermittent nausea and vomiting. Interval History/ROS Did well overnight, no acute events. N/V improved this AM. This am NGT was still actively draining. Impression / Plan #Acute Nausea and vomiting 2/2 proximal duodenal thickening #Breast cancer w/ mets to bone, liver, has recurrent pleural effusion currently on Herceptin, Perjata, andFemaraXgeva #Cholelithiasis Intermittent N/V for 1 month, went to [facility] 1 month ago for same symptoms. Given supportive care. Complains of increased generalized weakness. Since yesterday, has been having N/V. Unable to tolerate diet. 03/31/21 CT AP: Long segment circumferential thickening of the proximal duodenum which is new when compared with the prior exam from 4 weeks ago. The stomach is distended with fluid and duodenal thickening may be causing partial small bowel obstruction. Duodenal thickening is favored to be related to peptic ulcer disease or infection. Neoplasm would also be a consideration but seems less likely given the normal appearance of the proximal duodenum on the exam from 4 weeks ago. Gastroenterology consultation is recommended. 04/01/21 RUQ US: Cholelithiasis. Gallbladder wall thickening in part relates to contracted status of the gallbladder. The presence of chronic cholecystitis not excluded. No features of acute cholecystitis suggested sonographically. Upper limits normal common bile duct measuring 6 mm. No intrahepatic ductal dilatation is seen. LA normal -NGT to LIWS -Tracs consult - GI consult -zofran prn for now, takes prochlorperazine at home, may add IV/IM if nausea not under control -NPO -EGD #Hx of uti was on ciprofloxacin, today is day 7 UA shows no WBC nor bacteria No dysuria or hematuria -dc abx Chronic medical conditions: - hold home meds for today -liver cirrhosis -leiomyomatous uterus -recurrent right pleural effusion -HTN - doxazosin -neuropathic pain - gabapentin 100mg TID -effusion - lasix 40mg BID -flexeril 5mg TID -chemo adjuvant - 2.5mg daily IVF: LR at 75 DVT ppx: none for potential procedure Diet: NPO Code Status: DNR/DNI Pain Control: acetaminophen for mild pain. Disposition: Inpatient - awaiting medical stability. Physical Exam Temp: 98.1 F (36.7 C) BP: 115/67 Pulse: 64 O2 Device: Room Air Resp: 16 Pain Ratin (out of 10) Weight: 70.1 kg (154 lb 8 oz) SpO2: 96 % Date 03/31/21699 - 04/01/21 0659 04/01/21699 - 04/02/21 0659 Shift 4609-9595 8464-8411 24 Hour Total 1699-4449 2806-1357 24 Hour Total INTAKE Shift Total OUTPUT Urine Unmeasured Urine Occurrence 1 x 1 x Stool Unmeasured Stool Occurrence 0 x 0 x 0 x Shift Total NET Weight (kg) 70.1 70.1 70.1 70.1 70.1 70.1 General: Awake, A&Ox3 and not in distress RS: CTA, no crackles, no wheezes CVS: RRR, Normal S1S2, no murmurs, rubs or gallops GI: BS present, soft, nondistended, non tender NS: Alert, oriented, normal speech MSK: No pedal edema Derm: Warm, no rash Psych: Normal affect, behavior Labs/lines/drains Labs (Last day) 03/31/21 1041 - 03/31/21 1041 CARDIAC MARKERS 03/31/21 1041 CARDIAC MARKERS Troponin I 0.000-0.028 (ng/mL) 0.003 03/31/21 1041 - 03/31/21 1041 CBC 03/31/21 1041 CBC WBC 4.0-11.0 (K/uL) 6.1 RBC 3.80-5.30 (M/uL) 3.74 Hemoglobin 11.5-15.8 (g/dL) 10.5 Hematocrit 35.0-45.0 (%) 32.4 MCV 80.0-98.0 (fL) 86.6 MCH 25.5-34.0 (pg) 28.1 MCHC 31.5-36.5 (g/dL) 32.4 RDW-CV 11.5-15.5 (%) 13.0 RDW-SD 35.5-50.0 (fl) 41.4 Platelet Count 140-400 (K/uL) 206 MPV 8.5-12.0 (fL) 9.6 03/31/21 1621 - 03/31/21 1041 CHEMISTRY 03/31/21 1621 03/31/21 1041 03/31/21 1041 CHEMISTRY Glucose 70-100 (mg/dL) 91 Sodium 135-145 (meq/L) 137 Potassium 3.5-5.3 (meq/L) 3.6 Chloride 99-110 (meq/L) 103 CO2 20-29 (meq/L) 22 Anion Gap with K 6-20 (meq/L) 16 BUN 6-22 (mg/dL) 10 Creatinine 0.60-1.10 (mg/dL) 0.68 BUN/Creatinine Ratio 10.0-25.0 14.7 Calcium 8.5-10.5 (mg/dL) 9.4 Corrected Calcium 8.5-10.5 (mg/dL) 10.0 Bilirubin Total 0.2-1.2 (mg/dL) 0.7 Alkaline Phosphatase 30-150 (U/L) 71 ALT - SGPT 0-55 (U/L) 9 AST - SGOT 0-35 (U/L) 14 Protein Total 6.0-8.2 (g/dL) 6.5 Albumin 3.5-5.0 (g/dL) 3.3 Lipase 5-80 (U/L) 44 Lactic Acid 0.5-2.2 (mmol/L) 0.7 eGFR >=60 (mL/min/1.73m2) >90 eGFR Non- >=60 (mL/min/1.73m2) 85 03/31/21 1017 - 03/31/21 1017 ECG/EKG 03/31/21 1017 ECG/EKG EKG WAVEFORM Normal sinus rhythm Left axis deviation Nonspecific T wave abnormality Abnormal ECG Ventricular Rate: 74 BPM Atrial Rate: 74 BPM P-R Interval: 168 ms QRS Duration: 86 ms Q-T Interval: 370 ms QTc Calculation(Bazett): 410 ms Calculated P [place]: 62 degrees Calculated R [place]: -42 degrees Calculated T [place]: 59 degrees 03/31/21 1230 - 03/31/21 1230 URINALYSIS 03/31/21 1230 03/31/21 1230 URINALYSIS Color Urine Chiara, Dark Yellow, Straw, Yellow, Colorless Straw Clarity Urine Clear Clear Specific [place] 1.002-1.030 1.019 Glucose Urine Negative Negative Bilirubin Urine Negative Negative Ketones Urine Negative, 5 mg/dL, 10 mg/dL 10 mg/dL Blood Urine Negative Negative PH Urine 5.0, 5.5, 6.0, 6.5, 7.0, 7.5, 8.0 5.5 Protein Urine Negative Negative Nitrite Negative Negative Leukocyte Esterase Urine Negative Small (1+) Urobilinogen < 2 mg/dL < 2 mg/dL WBC Urine Negative, 0-5 /hpf 0-5 /hpf RBC Urine Negative, 0-2 /hpf 0-2 /hpf Squamous Epithelial Cells Negative, Occ (0-10) /lpf, Few (11-20) /lpf Few (11- 20) /lpf Bacteria Negative Negative Hyaline Cast 0-2 /lpf 0-2 /lpf 03/31/21 1041 - 03/31/21 1041 OTHER 03/31/21 1041 OTHER Age (Years) 75 Patient Lines/Drains/Airways Status Active Lines Name: Placement date: Placement time: Site: Days: IVAD 10/02/18 Internal jugular Left 10/02/18 0907 Internal jugular 911 IVAD 10/02/18 Chest Left 10/02/18 Chest 912 Other LDA 09/08/18 Thoracentesis Right Back 09/08/18 1543 935 Other LDA 09/17/18 Thoracentesis Right Back 09/17/18 1020 926 Incision 08/25/18 Right Breast Puncture site 1 08/25/18 1544 Breast 949 Incision 09/19/18 Anterior;Right;Lower;Quadrant Abdomen Puncture site 1 09/19/18 1515 [id number] Incision 02/10/19 Right;Lower;Quadrant Abdomen Puncture site 1 02/10/19 1428 Abdomen 780 Diagnostics and Labs All Reports, Vitals, Nursing Notes, pertinent Imaging and Labs Reviewed. Medical Decision Making All imaging and laboratory studies have been independently reviewed and interpreted. Associated attestation - Favian Rubin MD - 04/01/2021 11:54 AM CDT I have seen and discussed her care with ; I personally interviewed and examined thepatient. I agree with the diagnosis and management as noted by . Partial SBO, improving significantly w/NGT decompression. Possibly iso duodenal wall thickening (inflammation). GI consulted/ EGD soon. Favian Rubin MD, MPH, FACC, FSVM, FAAFP -Faculty Hospitalist/ Vascular Medicine, [facility] Clinical Still Runner, [employer] documented in this encounter H&P Notes Lizz Mcduffie MD - 03/31/2021 2:23 PM CDT Images from the original note were not included. ADMISSION HISTORY AND PHYSICAL NOTE Patient ID: Sabrina Singleton is a 75yr female admitted on 03/31/2021 9:56 AM Assessment/Plan #Acute Nausea and vomiting 2/2 proximal duodenal thickening #Breast cancer w/ mets to bone, liver, has recurrent pleural effusion currently on Herceptin, Perjata, andFemaraXgeva #Cholelithiasis Intermittent N/V for 1 month, went to [facility] 1 month ago for same symptoms. Given supportive care. Complains of increased generalized weakness. Since yesterday, has been having N/V. Unable to tolerate diet. 03/31/21 CT AP: Long segment circumferential thickening of the proximal duodenum which is new when compared with the prior exam from 4 weeks ago. The stomach is distended with fluid and duodenal thickening may be causing partial small bowel obstruction. Duodenal thickening is favored to be related to peptic ulcer disease or infection. Neoplasm would also be a consideration but seems less likely given the normal appearance of the proximal duodenum on the exam from 4 weeks ago. Gastroenterology consultation is recommended. -NGT to LIWS -LR at 75 -Tracs consult -zofran prn for now, takes prochlorperazine at home, may add IV/IM if nausea not under control -NPO -lactic acid -Consider GI in am -GI consult if decompensates -RUQ US #Hx of uti was on ciprofloxacin, today is day 7 UA shows no WBC nor bacteria No dysuria or hematuria -dc abx Chronic medical conditions: - hold home meds for today -liver cirrhosis -leiomyomatous uterus -recurrent right pleural effusion -HTN - doxazosin -neuropathic pain - gabapentin 100mg TID -effusion - lasix 40mg BID -flexeril 5mg TID -chemo adjuvant - 2.5mg daily IVF: LR at 76 DVT ppx: none for potential procedure Diet: NPO Code Status: DNR/DNI Pain Control: acetaminophen for mild pain. Disposition: Inpatient - awaiting medical stability. Chief Complaint / HPI Asians is a 75-year-old female with a past medical history of hypertension, hyperlipidemia, COPD, CHF, history of breast cancer with metastasis to the liver and bone, the current right pleural effusion(thoracentesis as needed), history of thrombosis of the right subclavian vein, who presents with nausea and epigastric abdominal pain. For the past month patient has been having intermittent nausea and vomiting. Patient went to [facility] a month ago for similar symptoms, she states that she was diagnosed with the flu. Patient has been feeling fatigued and generalized weakness. Patient has poor appetite. This episode, patient has been having nausea and vomiting for the past day and a half,unable to tolerate diet. Patient denied fever, chills, sick contacts, SOB, CP. Patient has diarrhea at baseline, loose stools around 2-3 times a day. Patient denies right upper quadrant pain, deniesabdominal pain. Patient has history of uti being treated on Ciprofloxacin. No symptoms today. In the ED, EKG was normal sinus. UA shows no bacteria, WBC, shows small leukocyte esterase. Trops negative. CT AP Long segment circumferential thickening of the proximal duodenum which is new when compared with the prior exam from 4 weeks ago. The stomach is distended with fluid and duodenal thickening may be causing partial small bowel obstruction. Duodenal thickening is favored to be related to peptic ulcer disease or infection. Neoplasm would also be a consideration but seems less likely given the normal appearance of the proximal duodenum on the exam from 4 weeks ago. Nodularity within the right breast which may relate to patient's known history of right-sided breast cancer. Diffuse osseous metastatic disease is again noted. Cholelithiasis without evidence of acute cholecystitis. Cirrhosis ofthe liver. Leiomyomatous uterus. Small right pleural effusion. Patient follows with Dr. 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 Patient has a history of tubal ligation, date unknown. No history of further abdominal surgeries. Never smoked. Never really drank alcohol. Medications Current Facility-Administered Medications on File Prior to Encounter Medication Dose Route Frequency Provider Last Rate Last Admin hEParin 100 units/ mL injection for heplock FLUSH 500 Units IV 1 time Tracy Frias APRN-CNP sodium chloride 0.9% prefilled 10 mL syringe (Materials Management Item) 10- 20 mL 10-20 mL IV As often as necessary prNathalie Ponce APRN-CNP sodium chloride flush 0.9% 10-20 mL 10-20 mL IV As often as necessary Nathalie Hernandez APRN-CNP Current Outpatient Medications on File Prior to Encounter Medication Sig Dispense Refill ciprofloxacin (CIPRO) 500 mg tablet Take 1 tablet (500 mg) by mouth 2 times a day 10 tablet 0 HYDROcodone-acetaminophen (NORCO) 5-325 mg tablet Take 1 tablet by mouth every 6 hours as neededfor moderate pain or severe pain. (Indications: Chronic Pain) 40 tablet 0 Biotin 44726 MCG TABS Take 10,000 mcg by mouth 1 time per day COLLAGEN PO Take by mouth 4 times a day letrozole (FEMARA) 2.5 mg tablet Take 1 tablet (2.5 mg) by mouth 1 time per day 90 tablet 3 cyclobenzaprine (FLEXERIL) 5 mg tablet Take 1 tablet (5 mg) by mouth 3 times a day as needed formuscle spasm 30 tablet 3 gabapentin (NEURONTIN) 100 mg capsule Take 1 capsule (100 mg) by mouth 3 times a day 90 capsule 1 doxycycline (VIBRAMYCIN) 100 mg capsule Take 1 capsule (100 mg) by mouth every 12 hours 20 capsule 0 furosemide (LASIX) 40 mg tablet Take 1 tablet (40 mg) by mouth 2 times a day 60 tablet 1 midodrine (PROAMATINE) 2.5 mg tablet Take 1 tablet (2.5 mg) by mouth 1 time per day 60 tablet 4 potassium chloride (KLOR-CON M20) 20 MEQ CR tablet Take 1 tablet (20 mEq) by mouth 2 times a day90 tablet 0 vitamin D3, cholecalciferol, 1000 unit tablet Take 1 tablet (1,000 Units) by mouth 1 time per day 30 tablet 0 acetaminophen (TYLENOL) 500 mg tablet Take 1 tablet (500 mg) by mouth every 6 hours as needed for mild pain 30 tablet 0 simethicone (MYLICON, GAS-X) 80 MG CHEW Take 2 tablets (160 mg) by mouth Every 4 hours as neededfor flatulence 30 each 1 magnesium oxide 250 MG TABS Take 250 mg by mouth 1 time per day prochlorperazine (COMPAZINE) 10 mg tablet Take 1 tablet (10 mg) by mouth 4 times a day as neededfor nausea or vomiting 50 tablet 3 calcium carbonate-vitamin D (OSCAL 500 + VIT D) 500 mg-200 unit tablet Take 1 tablet by mouth 3 times a day with meals 60 tablet 11 lactase (LACTAID) 3000 units TABS Take 3,000 Units by mouth as needed for other (Specify) Cyanocobalamin (VITAMIN B-12) 5000 MCG LOZG Take 5,000 mcg by mouth 1 time per day doxazosin (CARDURA) 2 mg tablet TAKE 1 TABLET BY MOUTH 1 TIME PER DAY. 90 tablet 3 Multiple Vitamin (MULTI-VITAMIN) tablet Take 1 tablet by mouth 1 time per day. Allergies Allergies Allergen Reactions Penicillin Hives (High) Tetracyclines Hives (High) Arimidex [Anastrozole] Rash Aspirin Tachycardia Ciprofloxacin Unknown/Not Verified Influenza Vaccines Other (Specify in Comments) Parasethesia Lactose [Milk/Dairy Products] Stomach Pain Pt to self monitor. Macrodantin [Nitrofurantoin] Rash Singulair [Montelukast Sodium] Other (Specify in Comments) Loss of appetite Sulfa Drugs Other (Specify in Comments) Stiff joints Medical / Surgical / Family History Past Medical History: Diagnosis Date Breast cancer (HCC) CHF (congestive heart failure) (HCC) COPD (chronic obstructive pulmonary disease) (HCC) Degenerative joint disease of right hip Hyperlipidemia Hypertension Pleural effusion on right Past Surgical History: Procedure Laterality Date SURGERY lipoma removal left upper back TONSILLECTOMY age 7 TUBAL LIGATION Family History Problem Relation Age of Onset Hypertension Father Heart Attack Father 70 possibly had previous SC Hypertension Mother Diabetes Mother Hx Type ll Obesity Brother had gastric bypass which resolved his HTN, diabetes. Diabetes Daughter lost >100 lbs which resolved her diabetes Social History Social History Socioeconomic History Marital status: Spouse name: Not on file Number of children: 3 Years of education: 12 Highest education level: Not on file Occupational History Occupation: [employer] Tobacco Use Smoking status: Never Smoker Smokeless tobacco: Never Used Substance and Sexual Activity Alcohol use: No Alcohol/week: 0.0 standard drinks Drug use: No Sexual activity: Never Other Topics Concern Not on file Social History Narrative Not on file Social Determinants of Health Financial Resource Strain: Difficulty of Paying Living Expenses: Food Insecurity: Worried About Running Out of Food in the Last Year: Ran Out of Food in the Last Year: Transportation Needs: Lack of Transportation (Medical): Lack of Transportation (Non-Medical): Physical Activity: Days of Exercise per Week: Minutes of Exercise per Session: Stress: Feeling of Stress : Social Connections: Frequency of Communication with Friends and Family: Frequency of Social Gatherings with Friends and Family: Attends Sabianist Services: Active Member of Clubs or Organizations: Attends Club or Organization Meetings: Marital Status: Intimate Partner Violence: Fear of Current or Ex-Partner: Emotionally Abused: Physically Abused: Sexually Abused: ROS Review of Systems Constitutional: Positive for malaise/fatigue and weight loss. Negative for chills, diaphoresis and fever. HENT: Negative for congestion. Eyes: Negative for blurred vision and pain. Respiratory: Negative for shortness of breath. Cardiovascular: Negative for chest pain, palpitations and orthopnea. Gastrointestinal: Positive for diarrhea, nausea and vomiting. Negative for abdominal pain, blood in stool, constipation, heartburn and melena. Genitourinary: Negative for hematuria. Musculoskeletal: Negative for myalgias. Neurological: Positive for weakness. Negative for dizziness, focal weakness and loss of consciousness. All other systems reviewed and are negative. Physical Exam Current Vital Signs Temp: 98.1 F (36.7 C) BP: 134/74 Pulse: 81 O2 Device: Room Air Resp: 18 Pain Ratin (out of 10) Weight: 70.1 kg (154 lb 8 oz) SpO2: 96 % Physical Exam Vitals and nursing note reviewed. Constitutional: General: She is not in acute distress. Appearance: She is not ill-appearing. HENT: Head: Normocephalic. Right Ear: External ear normal. Left Ear: External ear normal. Nose: Nose normal. Mouth/Throat: Mouth: Mucous membranes are moist. Eyes: Extraocular Movements: Extraocular movements intact. Cardiovascular: Rate and Rhythm: Normal rate and regular rhythm. Pulmonary: Effort: Pulmonary effort is normal. Breath sounds: Normal breath sounds. Abdominal: General: There is no distension. Palpations: Abdomen is soft. There is no mass. Tenderness: There is no abdominal tenderness. There is no guarding or rebound. Musculoskeletal: General: No swelling or tenderness. Normal range of motion. Cervical back: Normal range of motion. Skin: General: Skin is warm. Neurological: General: No focal deficit present. Mental Status: She is alert and oriented to person, place, and time. Psychiatric: Mood and Affect: Mood normal. Labs Labs (Last day) 03/31/21 1041 - 03/31/21 1041 CARDIAC MARKERS 03/31/21 1041 CARDIAC MARKERS Troponin I 0.000-0.028 (ng/mL) 0.003 03/31/21 1041 - 03/31/21 1041 CBC 03/31/21 1041 CBC WBC 4.0-11.0 (K/uL) 6.1 RBC 3.80-5.30 (M/uL) 3.74 Hemoglobin 11.5-15.8 (g/dL) 10.5 Hematocrit 35.0-45.0 (%) 32.4 MCV 80.0-98.0 (fL) 86.6 MCH 25.5-34.0 (pg) 28.1 MCHC 31.5-36.5 (g/dL) 32.4 RDW-CV 11.5-15.5 (%) 13.0 RDW-SD 35.5-50.0 (fl) 41.4 Platelet Count 140-400 (K/uL) 206 MPV 8.5-12.0 (fL) 9.6 03/31/21 1041 - 03/31/21 1041 CHEMISTRY 03/31/21 1041 03/31/21 1041 CHEMISTRY Glucose 70-100 (mg/dL) 91 Sodium 135-145 (meq/L) 137 Potassium 3.5-5.3 (meq/L) 3.6 Chloride 99-110 (meq/L) 103 CO2 20-29 (meq/L) 22 Anion Gap with K 6-20 (meq/L) 16 BUN 6-22 (mg/dL) 10 Creatinine 0.60-1.10 (mg/dL) 0.68 BUN/Creatinine Ratio 10.0-25.0 14.7 Calcium 8.5-10.5 (mg/dL) 9.4 Corrected Calcium 8.5-10.5 (mg/dL) 10.0 Bilirubin Total 0.2-1.2 (mg/dL) 0.7 Alkaline Phosphatase 30-150 (U/L) 71 ALT - SGPT 0-55 (U/L) 9 AST - SGOT 0-35 (U/L) 14 Protein Total 6.0-8.2 (g/dL) 6.5 Albumin 3.5-5.0 (g/dL) 3.3 Lipase 5-80 (U/L) 44 eGFR >=60 (mL/min/1.73m2) >90 eGFR Non- >=60 (mL/min/1.73m2) 85 03/31/21 1017 - 03/31/21 1017 ECG/EKG 03/31/21 1017 ECG/EKG EKG WAVEFORM Normal sinus rhythm Left axis deviation Nonspecific T wave abnormality Abnormal ECG Ventricular Rate: 74 BPM Atrial Rate: 74 BPM P-R Interval: 168 ms QRS Duration: 86 ms Q-T Interval: 370 ms QTc Calculation(Bazett): 410 ms Calculated P [place]: 62 degrees Calculated R [place]: -42 degrees Calculated T [place]: 59 degrees 03/31/21 1230 - 03/31/21 1230 URINALYSIS 03/31/21 1230 03/31/21 1230 URINALYSIS Color Urine Chiara, Dark Yellow, Straw, Yellow, Colorless Straw Clarity Urine Clear Clear Specific [place] 1.002-1.030 1.019 Glucose Urine Negative Negative Bilirubin Urine Negative Negative Ketones Urine Negative, 5 mg/dL, 10 mg/dL 10 mg/dL Blood Urine Negative Negative PH Urine 5.0, 5.5, 6.0, 6.5, 7.0, 7.5, 8.0 5.5 Protein Urine Negative Negative Nitrite Negative Negative Leukocyte Esterase Urine Negative Small (1+) Urobilinogen < 2 mg/dL < 2 mg/dL WBC Urine Negative, 0-5 /hpf 0-5 /hpf RBC Urine Negative, 0-2 /hpf 0-2 /hpf Squamous Epithelial Cells Negative, Occ (0-10) /lpf, Few (11-20) /lpf Few (11- 20) /lpf Bacteria Negative Negative Hyaline Cast 0-2 /lpf 0-2 /lpf 03/31/21 1041 - 03/31/21 1041 OTHER 03/31/21 1041 OTHER Age (Years) 75 Medical Decision Making All laboratory and imaging studies have been independently reviewed and interpreted. Associated attestation - Favian Rubin MD - 03/31/2021 11:18 PM CDT I have seen and discussed her care with ; I personally interviewed and examined thepatient. I agree with the diagnosis and management as noted by . Favian Rubin MD, MPH, FACC, FSVM, FAAFP -Faculty Hospitalist/ Vascular Medicine, [facility] [employer], [facility] [employer] documented in this encounter Consult Notes Jose Johansen MD - 04/01/2021 1:05 PM CDT Consult Note Consults Assessment / Plan Gastric outlet obstruction with abnormal CT with proximal duodenal circumferential wall thickeningconcerning for inflammatory versus neoplastic process. Recommendations: _Agree with NG tube to low intermittent suction. Next an _Further evaluation with EGD with anesthesia support for airway protection. Risks, goals, benefits and alternatives were discussed with the patient agrees to proceed. _Further recommendations based on findings at time of procedure. Reason for Consult Gastric outlet obstruction HPI / History / ROS HPI 75-year-old female with a history of metastatic rest cancer complicated by recurrent malignant effusions with underlying liver cirrhosis as well presents to the hospital with abdominal pain, nausea andvomiting progressively worsening over the last month. Initially thought to be gastroenteritis managed supportively. Within that timeframe she was also treated with antibiotics for UTI. She is neededintermittent thoracentesis for recurrent pleural effusions, last performed 03/24/2021. Abdominal pain became acutely worse with associated nausea and vomiting morning leading to presentation to the hospital where CT scan demonstrated gastric distention and concern for gastric outlet obstruction with long segment of the proximal duodenum appearing to be circumferentially thickened, new compared to 4 weeks ago. Denies blood in her emesis or melena. She continues to pass flatus. Denies melena or blood in her stools. Feels significantly improved since placement of an NG tube with resolvedabdominal pain. When she had the abdominal pain, it was migratory, mostly periumbilical. Had some diarrhea 2 or 3 days ago which has resolved. Denies current chest pain. Has chronic shortness of breath with pleural effusions. Denies fever, chills, recent weight loss, rash, jaundice. This not take any NSAIDs or aspirin. Takes Tylenol for pain. Not taking any anticoagulants or antiplatelet therapy. History Patient Active Problem List Diagnosis Essential hypertension Hyperlipidemia Osteoarthritis of right hip COPD (chronic obstructive pulmonary disease) (HCC) CHF (congestive heart failure) (HCC) Shortness of breath Pleural effusion on right Malignant neoplasm of overlapping sites of right breast in female, estrogen receptor positive (HCC) Liver metastasis (HCC) Bone metastasis (HCC) Recurrent pleural effusion on right Metastatic breast cancer (HCC) High risk for chemotherapy-induced infectious complication Thrombosis of right subclavian vein (HCC) Lymphedema of right upper extremity Pleural effusion, malignant SBO (small bowel obstruction) (HCC) Current Facility-Administered Medications Medication Dose Route Frequency dextrose 5%-sodium chloride 0.45% IV solution IV Continuous phenol (CHLORASEPTIC) 1.4 % liquid/spray 2 spray 2 spray Mouth/Throat Every 4 hours prn hydrALAZINE (APRESOLINE) injection solution 10 mg 10 mg IV Every 4 hours prn ondansetron (ZOFRAN) injection solution 4 mg 4 mg IV Every 15 minutes prn sodium chloride 0.9% flush (adult) 10 mL 10 mL IV 2 times a day and prn nalOXone (NARCAN) injection solution (vial) 0.4 mg 0.4 mg Injection Every 2 minutes prn nalOXone (NARCAN) injection solution (vial) 0.2 mg 0.2 mg Injection Every 2 minutes prn acetaminophen (TYLENOL) tablet 650 mg 650 mg Oral Every 4 hours prn melatonin tablet 3 mg 3 mg Oral Bedtime prn ondansetron (ZOFRAN ODT) dispersible tablet 4 mg 4 mg Oral 4 times a day prn And ondansetron (ZOFRAN) injection solution 4 mg 4 mg IV 4 times a day prn famotidine (PEPCID) tablet 20 mg 20 mg Oral 2 times a day prn hEParin 100 units/ mL injection for heplock FLUSH 5 mL IV PRN per parameter And sodium chloride 0.9% flush (adult) 10 mL 10 mL IV Daily and prn Facility-Administered Medications Ordered in Other Encounters Medication Dose Route Frequency hEParin 100 units/ mL injection for heplock FLUSH 500 Units IV 1 time sodium chloride 0.9% prefilled 10 mL syringe (Materials Management Item) 10- 20 mL 10-20 mL IV As often as necessary prn sodium chloride flush 0.9% 10-20 mL 10-20 mL IV As often as necessary prn Allergies Allergen Reactions Penicillin Hives (High) Tetracyclines Hives (High) Arimidex [Anastrozole] Rash Aspirin Tachycardia Ciprofloxacin Unknown/Not Verified Influenza Vaccines Other (Specify in Comments) Parasethesia Lactose [Milk/Dairy Products] Stomach Pain Pt to self monitor. Macrodantin [Nitrofurantoin] Rash Singulair [Montelukast Sodium] Other (Specify in Comments) Loss of appetite Sulfa Drugs Other (Specify in Comments) Stiff joints Past Medical History: Diagnosis Date Breast cancer (HCC) CHF (congestive heart failure) (HCC) COPD (chronic obstructive pulmonary disease) (HCC) Degenerative joint disease of right hip Hyperlipidemia Hypertension Pleural effusion on right Past Surgical History: Procedure Laterality Date SURGERY lipoma removal left upper back TONSILLECTOMY age 7 TUBAL LIGATION Family History Problem Relation Age of Onset Hypertension Father Heart Attack Father 70 possibly had previous SC Hypertension Mother Diabetes Mother Hx Type ll Obesity Brother had gastric bypass which resolved his HTN, diabetes. Diabetes Daughter lost >100 lbs which resolved her diabetes Social History Socioeconomic History Marital status: Spouse name: Not on file Number of children: 3 Years of education: 12 Highest education level: Not on file Occupational History Occupation: [employer] Tobacco Use Smoking status: Never Smoker Smokeless tobacco: Never Used Substance and Sexual Activity Alcohol use: No Alcohol/week: 0.0 standard drinks Drug use: No Sexual activity: Never Social Determinants of Health Physical Activity: Days of Exercise per Week: Minutes of Exercise per Session: Stress: Feeling of Stress : Social Connections: Frequency of Communication with Friends and Family: Frequency of Social Gatherings with Friends and Family: Attends Sabianist Services: Active Member of Clubs or Organizations: Attends Club or Organization Meetings: Marital Status: Intimate Partner Violence: Fear of Current or Ex-Partner: Emotionally Abused: Physically Abused: Sexually Abused: Financial Resource Strain: Difficulty of Paying Living Expenses: Food Insecurity: Worried About Running Out of Food in the Last Year: Ran Out of Food in the Last Year: Transportation Needs: Lack of Transportation (Medical): Lack of Transportation (Non-Medical): Alcohol Use: Not At Risk Frequency of Alcohol Consumption: Never Average Number of Drinks: Not on file Frequency of Binge Drinking: Never Review of Systems Review of Systems Comprehensive review of systems negative suppressed elucidated above in history Physical / Results Current Vital Signs Temp: 98.1 F (36.7 C) BP: 102/60 Weight: 70.1 kg (154 lb 8 oz) SpO2: 94 % Resp: 16 Pulse: 66 Current BMI (>50 = increased risk): 24.19 O2 Device: Room Air Pain Ratin Physical Exam Gen: AVSS and afebrile; Resting comfortably in bed in NAD Mental Status: A&Ox3; Appropriate in conversation Psych: Normal mood and affect HEENT: NG tube in place with clear aspirate; No scleral icterus; no rhinorrhea; Oropharynx clear without lesions; Mallampati 2; Trachea midline without inspiratory stridor Cardiac: Regular rate, pedal edema present bilaterally Pulmonary: No respiratory distress or audible wheeze; symmetric chest wall expansion without accessory muscle use Abdomen: Soft, Non-distended without palpable fluid wave and no tenderness to palpation without rebound or guarding and no palpable mass : No costovertebral angle or suprapubic tenderness to palpation Extremities: No Clubbing or cyanosis of the upper extremities Integumentary: No Jaundice, no rash Neuro: Non-focal neuro exam moving all extremities equally without evidence of contractures Laboratory and Radiology results reviewed personally John Paul Carbone MD - 03/31/2021 3:59 PM CDT Images from the original note were not included. [facility] Surgery Consult Date of Service: 03/31/2021 Patient: Sabrina Singleton : 1945 [facility]: [id number] Date of Consultation: 03/31/2021 Reason for Consult: SBO Requesting Physician: Favian Rubin MD Chief Complaint: Nausea, vomiting, abdominal pain History of Present Illness: Sabrina Singleton is a 75 year old female with a history of metastatic right breast cancer on chemotherapy, recurrent malignant right pleural effusions, HTN, cirrhosis, DVT, and a tubal ligation who presents with nausea, vomiting, and abdominal pain. She reports intermittent nausea, vomiting, and abdominal pain for approximately 1 month. She was admitted at an OSH at the end of February and treated for presumed stomach flu. She then discharged and has had intermitted diarrhea since then and a UTI which was treated with antibiotics. Due to recurrent malignant pleural effusions she has recurrent thoracenteses, most recently on 03/24. She had acute onset abdominal pain, nausea, and vomiting on morning that was persistent, so she presented to [facility] for evaluation. CT scan today was concerning for partial SBO, so surgery was consulted. She currently reports nausea, but her abdominal pain has improved. She has ongoing SOB due to the pleural effusions. She denies fevers, chills, chest pain, or other symptoms. She reports passing gas and having diarrhea yesterday, but none since. She has also had burping and belching today. She last ate a small amount of food last night that she threw up. She deniescurrently taking blood thinners and her only abdominal surgery was a tubal ligation over 40 years ago. She did not take her medications this morning. Past Medical History: Past Medical History: Diagnosis Date Breast cancer (HCC) CHF (congestive heart failure) (HCC) COPD (chronic obstructive pulmonary disease) (HCC) Degenerative joint disease of right hip Hyperlipidemia Hypertension Pleural effusion on right Past Surgical History: Past Surgical History: Procedure Laterality Date SURGERY lipoma removal left upper back TONSILLECTOMY age 7 TUBAL LIGATION Current Medications: Current Facility-Administered Medications Medication Dose Route Frequency Provider Last Rate Last Admin ondansetron (ZOFRAN) injection solution 4 mg 4 mg IV Every 15 minutes prn Sofía Beckham DO 4 mg at 03/31/21 1202 sodium chloride 0.9% flush (adult) 10 mL 10 mL IV 2 times a day and prn Lizz Mcduffie MD nalOXone (NARCAN) injection solution (vial) 0.4 mg 0.4 mg Injection Every 2 minutes prn Lizz Mcduffie MD nalOXone (NARCAN) injection solution (vial) 0.2 mg 0.2 mg Injection Every 2 minutes prn Lizz Mcduffie MD lactated ringers IV solution IV Continuous Lizz Mcduffie MD acetaminophen (TYLENOL) tablet 650 mg 650 mg Oral Every 4 hours prn Lizz Mcduffie MD melatonin tablet 3 mg 3 mg Oral Bedtime prn Lizz Mcduffie MD ondansetron (ZOFRAN ODT) dispersible tablet 4 mg 4 mg Oral 4 times a day prn Lizz Mcduffie MD And ondansetron (ZOFRAN) injection solution 4 mg 4 mg IV 4 times a day prn Lizz Mcduffie MD famotidine (PEPCID) tablet 20 mg 20 mg Oral 2 times a day prn Lizz Mcduffie MD hEParin 100 units/ mL injection for heplock FLUSH 5 mL IV PRN per parameter Favian Rubin MD And [START ON 04/01/2021] sodium chloride 0.9% flush (adult) 10 mL 10 mL IV Daily and prn Favian Rubin MD Facility-Administered Medications Ordered in Other Encounters Medication Dose Route Frequency Provider Last Rate Last Admin hEParin 100 units/ mL injection for heplock FLUSH 500 Units IV 1 time Tracy Frias APRN-CNP sodium chloride 0.9% prefilled 10 mL syringe (Materials Management Item) 10- 20 mL 10-20 mL IV As often as necessary prn Nathalie Bang APRN-CNP sodium chloride flush 0.9% 10-20 mL 10-20 mL IV As often as necessary prn Nathalie Bang APRN-CNP Allergies: Penicillin, Tetracyclines, Arimidex [anastrozole], Aspirin, Ciprofloxacin, Influenza vaccines, Lactose [milk/dairy products], Macrodantin [nitrofurantoin], Singulair [montelukast sodium], and Sulfa drugs Social History: Social History Socioeconomic History Marital status: Spouse name: Not on file Number of children: 3 Years of education: 12 Highest education level: Not on file Occupational History Occupation: [employer] Tobacco Use Smoking status: Never Smoker Smokeless tobacco: Never Used Substance and Sexual Activity Alcohol use: No Alcohol/week: 0.0 standard drinks Drug use: No Sexual activity: Never Other Topics Concern Not on file Social History Narrative Not on file Social Determinants of Health Financial Resource Strain: Difficulty of Paying Living Expenses: Food Insecurity: Worried About Running Out of Food in the Last Year: Ran Out of Food in the Last Year: Transportation Needs: Lack of Transportation (Medical): Lack of Transportation (Non-Medical): Physical Activity: Days of Exercise per Week: Minutes of Exercise per Session: Stress: Feeling of Stress : Social Connections: Frequency of Communication with Friends and Family: Frequency of Social Gatherings with Friends and Family: Attends Sabianist Services: Active Member of Clubs or Organizations: Attends Club or Organization Meetings: Marital Status: Intimate Partner Violence: Fear of Current or Ex-Partner: Emotionally Abused: Physically Abused: Sexually Abused: Family History: Family History Problem Relation Age of Onset Hypertension Father Heart Attack Father 70 possibly had previous SC Hypertension Mother Diabetes Mother Hx Type ll Obesity Brother had gastric bypass which resolved his HTN, diabetes. Diabetes Daughter lost >100 lbs which resolved her diabetes REVIEW OF SYSTEMS: Positive for: nausea, vomiting, diarrhea, abdominal pain, SOB, chronic peripheral neuropathy Negative for: fevers, chills, chest pain, cough, headache, vision changes, bloody stools, burning with urination, anxiety, depression, rashes OBJECTIVE: Blood pressure 134/74, pulse 81, temperature 98.1 F (36.7 C), resp. rate 18, SpO2 96 %, not currently . Physical Examination: GENERAL ASSESSMENT: active, alert, no acute distress SKIN: warm, no rashes HEAD: Atraumatic, normocephalic EYES: PERRL and EOM intact NOSE: nasal mucosa, septum, turbinates normal bilaterally MOUTH: mucous membranes moist NECK: supple, non tender CHEST: port in the right chest, non tender LUNGS: CTAB anteriorly, diminished on the right HEART: RRR ABDOMEN: soft, non tender, mild distension, no guarding, not peritoneal EXTREMITY: no deformities, no edema NEURO: gross motor exam normal by observation, sensory exam normal LABS: Labs (Last day) 03/31/21 1041 - 03/31/21 1041 CARDIAC MARKERS 03/31/21 1041 CARDIAC MARKERS Troponin I 0.000-0.028 (ng/mL) 0.003 03/31/21 1041 - 03/31/21 1041 CBC 03/31/21 1041 CBC WBC 4.0-11.0 (K/uL) 6.1 RBC 3.80-5.30 (M/uL) 3.74 Hemoglobin 11.5-15.8 (g/dL) 10.5 Hematocrit 35.0-45.0 (%) 32.4 MCV 80.0-98.0 (fL) 86.6 MCH 25.5-34.0 (pg) 28.1 MCHC 31.5-36.5 (g/dL) 32.4 RDW-CV 11.5-15.5 (%) 13.0 RDW-SD 35.5-50.0 (fl) 41.4 Platelet Count 140-400 (K/uL) 206 MPV 8.5-12.0 (fL) 9.6 03/31/21 1041 - 03/31/21 1041 CHEMISTRY 03/31/21 1041 03/31/21 1041 CHEMISTRY Glucose 70-100 (mg/dL) 91 Sodium 135-145 (meq/L) 137 Potassium 3.5-5.3 (meq/L) 3.6 Chloride 99-110 (meq/L) 103 CO2 20-29 (meq/L) 22 Anion Gap with K 6-20 (meq/L) 16 BUN 6-22 (mg/dL) 10 Creatinine 0.60-1.10 (mg/dL) 0.68 BUN/Creatinine Ratio 10.0-25.0 14.7 Calcium 8.5-10.5 (mg/dL) 9.4 Corrected Calcium 8.5-10.5 (mg/dL) 10.0 Bilirubin Total 0.2-1.2 (mg/dL) 0.7 Alkaline Phosphatase 30-150 (U/L) 71 ALT - SGPT 0-55 (U/L) 9 AST - SGOT 0-35 (U/L) 14 Protein Total 6.0-8.2 (g/dL) 6.5 Albumin 3.5-5.0 (g/dL) 3.3 Lipase 5-80 (U/L) 44 eGFR >=60 (mL/min/1.73m2) >90 eGFR Non- >=60 (mL/min/1.73m2) 85 03/31/21 1017 - 03/31/21 1017 ECG/EKG 03/31/21 1017 ECG/EKG EKG WAVEFORM Normal sinus rhythm Left axis deviation Nonspecific T wave abnormality Abnormal ECG Ventricular Rate: 74 BPM Atrial Rate: 74 BPM P-R Interval: 168 ms QRS Duration: 86 ms Q-T Interval: 370 ms QTc Calculation(Bazett): 410 ms Calculated P Castalia: 62 degrees Calculated R [place]: -42 degrees Calculated T Cast[place]: 59 degrees 03/31/21 1230 - 03/31/21 1230 URINALYSIS 03/31/21 1230 03/31/21 1230 URINALYSIS Color Urine Chiara, Dark Yellow, Straw, Yellow, Colorless Straw Clarity Urine Clear Clear Specific [place] 1.002-1.030 1.019 Glucose Urine Negative Negative Bilirubin Urine Negative Negative Ketones Urine Negative, 5 mg/dL, 10 mg/dL 10 mg/dL Blood Urine Negative Negative PH Urine 5.0, 5.5, 6.0, 6.5, 7.0, 7.5, 8.0 5.5 Protein Urine Negative Negative Nitrite Negative Negative Leukocyte Esterase Urine Negative Small (1+) Urobilinogen < 2 mg/dL < 2 mg/dL WBC Urine Negative, 0-5 /hpf 0-5 /hpf RBC Urine Negative, 0-2 /hpf 0-2 /hpf Squamous Epithelial Cells Negative, Occ (0-10) /lpf, Few (11-20) /lpf Few (11- 20) /lpf Bacteria Negative Negative Hyaline Cast 0-2 /lpf 0-2 /lpf 03/31/21 1041 - 03/31/21 1041 OTHER 03/31/21 1041 OTHER Age (Years) 75 IMAGING: Procedure: CT ABDOMEN PELVIS WITH CONTRAST Date of Service: 03/31/2021 IMPRESSION: 1. Long segment circumferential thickening of the proximal duodenum which is new when compared with the prior exam from 4 weeks ago. The stomach is distended with fluid and duodenal thickening may be causing partial small bowel obstruction. Duodenal thickening is favored to be related to peptic ulcer d isease or infection. Neoplasm would also be a consideration but seems less likely given the normal appearance of the proximal duodenum on the exam from 4 weeks ago. Gastroenterology consultation is recommended. 2. Nodularity within the right breast which may relate to patient's known history of right-sided breast cancer. Diffuse osseous metastatic disease is again noted. 3. Cholelithiasis without evidence of acute cholecystitis. 4. Cirrhosis of the liver. 5. Leiomyomatous uterus. 6. Small right pleural effusion. ASSESSMENT: 75 year old female with metastatic breast cancer who presents with nausea, vomiting, abdominal pain,bloating, and concern for SBO on CT scan. Currently abdominal pain has improved but she reports ongoing nausea, bloating, and belching. SOB ongoing due to recurrent malignant pleural effusion. When asked if she would want surgery if needed, she says she would depending on how big of a surgery it was. Explained that surgery may require a large abdominal incision and possible ostomy, to which she replied she would have to think about it. Will attempt non-operative management at this time. PLAN: - NPO, IV fluids - Recommend NG tube to LIWS - Prn anti-emetics - Pain control - Serial abdominal exams - Daily labs, replace electrolytes as needed - Continue cares per primary team John Paul Carbone D.O. PGY-1 Surgery Resident Pager #[phone] Associated attestation - Rocio Crum MD - 04/01/2021 11:18 AM CDT Trauma/Acute Care Surgery Attending: I have seen and discussed the patient with the resident. The plan, as outlined in the note, was developed in collaboration with the resident following review of the history, physical exam, radiographsand events since admission. I have examined the patient and agree with the residents assessment and plan. Pt presents with small bowel obstruction, may be gastric outlet obstruction based on how proximal itappears. NPO/NGT/serial abdominal examinations. Rocio Crum MD [facility] 04/01/2021 11:17 AM CDT documented in this encounter ED Notes Sofía Beckham DO - 03/31/2021 10:10 AM CDT DIAGNOSIS 1. Nausea 2. Abnormal abdominal CT scan 3. Duodenal anomaly ASSESSMENT/PLAN/DECISION MAKING: I consulted and discussed the patients ED course with IM. The patient will be admitted for further medical management. DISPOSITION Patient Admitted and Treated in this Facility Patient will be admitted. SatMar 31, 2021 1:13 PM CDT FOLLOW UP INFORMATION DISCHARGE MEDS Medication List ASK your doctor about these medications acetaminophen 500 mg tablet Commonly known as: TYLENOL Biotin 15615 MCG Tabs calcium carbonate-vitamin D 500 mg-200 unit tablet Commonly known as: OSCAL 500 + VIT D ciprofloxacin 500 mg tablet Commonly known as: CIPRO Take 1 tablet (500 mg) by mouth 2 times a day COLLAGEN PO cyclobenzaprine 5 mg tablet Commonly known as: FLEXERIL Take 1 tablet (5 mg) by mouth 3 times a day as needed for muscle spasm doxazosin 2 mg tablet Commonly known as: CARDURA TAKE 1 TABLET BY MOUTH 1 TIME PER DAY. doxycycline 100 mg capsule Commonly known as: VIBRAMYCIN Take 1 capsule (100 mg) by mouth every 12 hours furosemide 40 mg tablet Commonly known as: LASIX Take 1 tablet (40 mg) by mouth 2 times a day gabapentin 100 mg capsule Commonly known as: NEURONTIN Take 1 capsule (100 mg) by mouth 3 times a day HYDROcodone-acetaminophen 5-325 mg tablet Commonly known as: NORCO Take 1 tablet by mouth every 6 hours as needed for moderate pain or severe pain. (Indications: Chronic Pain) lactase 3000 units Tabs Commonly known as: LACTAID letrozole 2.5 mg tablet Commonly known as: FEMARA Take 1 tablet (2.5 mg) by mouth 1 time per day magnesium oxide 250 mg Tabs midodrine 2.5 mg tablet Commonly known as: PROAMATINE Take 1 tablet (2.5 mg) by mouth 1 time per day multi-vitamin tablet potassium chloride 20 MEQ CR tablet Commonly known as: KLOR-CON M20 prochlorperazine 10 mg tablet Commonly known as: COMPAZINE Take 1 tablet (10 mg) by mouth 4 times a day as needed for nausea or vomiting simethicone 80 MG Chew Commonly known as: MYLICON, GAS-X Take 2 tablets (160 mg) by mouth Every 4 hours as needed for flatulence Vitamin B-12 5000 MCG Lozg vitamin D3 (cholecalciferol) 1000 unit tablet Take 1 tablet (1,000 Units) by mouth 1 time per day HPI / History / ROS Chief Complaint Patient presents with Nausea Pt arrives with [facility] after having nausea and vomiting for a while. Pt is a cancer pt and recieves treatment here. No vomiting now, just naseous. HPI The history is provided by the patient. Nausea This is a new problem. Episode onset: today. The problem occurs continuously. The problem has not changed since onset.The emesis has an appearance of stomach contents (prescription pills). There has been no fever. Associated symptoms include diarrhea. Pertinent negatives include no abdominal pain, no chills and no fever. ALLERGIES Allergies Allergen Reactions Penicillin Hives (High) Tetracyclines Hives (High) Arimidex [Anastrozole] Rash Aspirin Tachycardia Ciprofloxacin Unknown/Not Verified Influenza Vaccines Other (Specify in Comments) Parasethesia Lactose [Milk/Dairy Products] Stomach Pain Pt to self monitor. Macrodantin [Nitrofurantoin] Rash Singulair [Montelukast Sodium] Other (Specify in Comments) Loss of appetite Sulfa Drugs Other (Specify in Comments) Stiff joints PROBLEM LIST: Patient Active Problem List Diagnosis Essential hypertension Hyperlipidemia Osteoarthritis of right hip COPD (chronic obstructive pulmonary disease) (HCC) CHF (congestive heart failure) (HCC) Shortness of breath Pleural effusion on right Malignant neoplasm of overlapping sites of right breast in female, estrogen receptor positive (HCC) Liver metastasis (HCC) Bone metastasis (HCC) Recurrent pleural effusion on right Metastatic breast cancer (HCC) High risk for chemotherapy-induced infectious complication Thrombosis of right subclavian vein (HCC) Lymphedema of right upper extremity Pleural effusion, malignant MEDICAL/SURGICAL/SOCIAL HISTORY Past Medical History: Diagnosis Date Breast cancer (HCC) CHF (congestive heart failure) (HCC) COPD (chronic obstructive pulmonary disease) (HCC) Degenerative joint disease of right hip Hyperlipidemia Hypertension Pleural effusion on right Past Surgical History: Procedure Laterality Date SURGERY lipoma removal left upper back TONSILLECTOMY age 7 TUBAL LIGATION Family History Problem Relation Age of Onset Hypertension Father Heart Attack Father 70 possibly had previous SC Hypertension Mother Diabetes Mother Hx Type ll Obesity Brother had gastric bypass which resolved his HTN, diabetes. Diabetes Daughter lost >100 lbs which resolved her diabetes Social History Socioeconomic History Marital status: Spouse name: Not on file Number of children: 3 Years of education: 12 Highest education level: Not on file Occupational History Occupation: [employer] Tobacco Use Smoking status: Never Smoker Smokeless tobacco: Never Used Substance and Sexual Activity Alcohol use: No Alcohol/week: 0.0 standard drinks Drug use: No Sexual activity: Never Social Determinants of Health Physical Activity: Days of Exercise per Week: Minutes of Exercise per Session: Stress: Feeling of Stress : Social Connections: Frequency of Communication with Friends and Family: Frequency of Social Gatherings with Friends and Family: Attends Sabianist Services: Active Member of Clubs or Organizations: Attends Club or Organization Meetings: Marital Status: Intimate Partner Violence: Fear of Current or Ex-Partner: Emotionally Abused: Physically Abused: Sexually Abused: Financial Resource Strain: Difficulty of Paying Living Expenses: Food Insecurity: Worried About Running Out of Food in the Last Year: Ran Out of Food in the Last Year: Transportation Needs: Lack of Transportation (Medical): Lack of Transportation (Non-Medical): HOME MEDICATIONS Current Outpatient Medications Medication Sig ciprofloxacin (CIPRO) 500 mg tablet Take 1 tablet (500 mg) by mouth 2 times a day HYDROcodone-acetaminophen (NORCO) 5-325 mg tablet Take 1 tablet by mouth every 6 hours as neededfor moderate pain or severe pain. (Indications: Chronic Pain) Biotin 90641 MCG TABS Take 10,000 mcg by mouth 1 time per day COLLAGEN PO Take by mouth 4 times a day letrozole (FEMARA) 2.5 mg tablet Take 1 tablet (2.5 mg) by mouth 1 time per day cyclobenzaprine (FLEXERIL) 5 mg tablet Take 1 tablet (5 mg) by mouth 3 times a day as needed formuscle spasm gabapentin (NEURONTIN) 100 mg capsule Take 1 capsule (100 mg) by mouth 3 times a day doxycycline (VIBRAMYCIN) 100 mg capsule Take 1 capsule (100 mg) by mouth every 12 hours furosemide (LASIX) 40 mg tablet Take 1 tablet (40 mg) by mouth 2 times a day midodrine (PROAMATINE) 2.5 mg tablet Take 1 tablet (2.5 mg) by mouth 1 time per day potassium chloride (KLOR-CON M20) 20 MEQ CR tablet Take 1 tablet (20 mEq) by mouth 2 times a day vitamin D3, cholecalciferol, 1000 unit tablet Take 1 tablet (1,000 Units) by mouth 1 time per day acetaminophen (TYLENOL) 500 mg tablet Take 1 tablet (500 mg) by mouth every 6 hours as needed for mild pain simethicone (MYLICON, GAS-X) 80 MG CHEW Take 2 tablets (160 mg) by mouth Every 4 hours as neededfor flatulence magnesium oxide 250 MG TABS Take 250 mg by mouth 1 time per day prochlorperazine (COMPAZINE) 10 mg tablet Take 1 tablet (10 mg) by mouth 4 times a day as neededfor nausea or vomiting calcium carbonate-vitamin D (OSCAL 500 + VIT D) 500 mg-200 unit tablet Take 1 tablet by mouth 3 times a day with meals lactase (LACTAID) 3000 units TABS Take 3,000 Units by mouth as needed for other (Specify) Cyanocobalamin (VITAMIN B-12) 5000 MCG LOZG Take 5,000 mcg by mouth 1 time per day doxazosin (CARDURA) 2 mg tablet TAKE 1 TABLET BY MOUTH 1 TIME PER DAY. Multiple Vitamin (MULTI-VITAMIN) tablet Take 1 tablet by mouth 1 time per day. ROS Review of Systems Constitutional: Negative for chills and fever. HENT: Negative for trouble swallowing. Eyes: Negative for redness. Respiratory: Negative for shortness of breath. Cardiovascular: Negative for chest pain. Gastrointestinal: Positive for diarrhea, nausea and vomiting. Negative for abdominal pain. Musculoskeletal: Negative for back pain, neck pain and neck stiffness. Skin: Negative for wound. Allergic/Immunologic: Negative for immunocompromised state. Neurological: Negative for seizures. Hematological: Does not bruise/bleed easily. Psychiatric/Behavioral: Negative for behavioral problems. Physical / Results PHYSICAL EXAM ED Triage Vitals [03/31/21 1001] Temp Temp Source Pulse Resp BP SpO2 O2 Flow Rate (L/min) O2 Device 98.6 F (37 C) -- 78 15 137/80 98 % -- RA Physical Exam Vitals and nursing note reviewed. HENT: Head: Normocephalic. Nose: Nose normal. Mouth/Throat: Mouth: Mucous membranes are moist. Eyes: Pupils: Pupils are equal, round, and reactive to light. Cardiovascular: Pulses: Normal pulses. Pulmonary: Effort: Pulmonary effort is normal. Abdominal: General: There is no distension. Tenderness: There is no abdominal tenderness. Musculoskeletal: General: No deformity. Cervical back: Neck supple. Skin: General: Skin is warm. Neurological: General: No focal deficit present. Mental Status: She is alert. Psychiatric: Mood and Affect: Mood normal. Scoring Scales Geno Coma Scale Score: 15 ED COURSE PROCEDURES Procedures MDM-CODING: MDM Number of Diagnoses or Management Options Abnormal abdominal CT scan: new and requires workup Duodenal anomaly: new and requires workup Nausea: new and requires workup Diagnosis management comments: The patient was seen and evaluated. Nursing Note reviewed. Blood pressure 137/80, pulse 78, temperature 98.6 F (37 C), resp. rate 15, SpO2 98 %, not currently . . A peripheral IV was established and IV fluids were given. Labs were ordered and reviewed ED Medication Administration from 03/31/2021 0956 to 03/31/2021 1321 Date/Time Order Dose Route Action Action by 03/31/2021 1147 iohexol (OMNIPAQUE) 350 mg/mL solution 100 mL 82 mL IV Given Henny Wooten, RT(R) 03/31/2021 1202 ondansetron (ZOFRAN) injection solution 4 mg 4 mg IV Given Payal Garrido RN 03/31/2021 1041 ondansetron (ZOFRAN) injection solution 4 mg 4 mg IV Given Payal Garrido RN 03/31/2021 1201 sodium chloride 0.9% (bolus) IV solution 1,000 mL 1,000 mL IV Stopped Infusion Payal Garrido RN 03/31/2021 1041 sodium chloride 0.9% (bolus) IV solution 1,000 mL 1,000 mL IV Given Payal Garrido, YAMILEX CT abnormal duodenum thickening present please see radiology report for full details I consulted and discussed the patients ED course with IM. The patient will be admitted for further medical management. Initial Differential Diagnosis not all inclusive: Pancreatitis, pyelonephritis , Cholecystitis, Urinary Tract Infection, Appendicitis, Ruptured AAA, Ischemic Colitis, Mesenteric Ischemia, Diverticulitis Amount and/or Complexity of Data Reviewed Clinical lab tests: ordered and reviewed Tests in the radiology section of CPT: ordered and reviewed Tests in the medicine section of CPT: ordered and reviewed Discuss the patient with other providers: yes Independent visualization of images, tracings, or specimens: yes documented in this encounter Miscellaneous Notes Case Mgmt - Sage Corbin LSW - 04/14/2021 8:23 AM CDT CASE MANAGEMENT / SOCIAL SERVICE FINAL TRANSITION PLAN TRANSITION DATE: 04/14/21 TRANSITION TIME: Infusion appt at 1100 - Finish around 1300 will then transport to INTENDED PAYER SOURCE FOR AGENCY: Medicare TRANSITION DESTINATION: [facility] DOES ACCEPTING FACILITY REQUIRE COVID TESTING BEFORE DISCHARGE: Needs one negative test within 24-48 hours - Negative test 04/12/21 TRANSITION TRANSPORTATION: Family Car - Son (Bandar) TRANSPORTATION PAYMENT: Not applicable TRANSITION CHOICES OFFERED: [facility] Swing Bed Transitional Care DOES THE PATIENT HAVE A PRIMARY CARE PHYSICIAN? Yes Helen Cardenas MD PATIENT / SUBSTITUTE DECISION MAKER GOAL UPON TRANSITION: First Choice: Swing Bed RESOURCE(S) PROVIDED: Discharge Planning DOES PATIENT HAVE CLOTHING TO WEAR AT DISCHARGE? Yes ANTICIPATED MODE OF TRANSPORT TO AND FROM FOLLOW UP APPOINTMENTS: Family Car VERIFIED CORRECT PHARMACY IS ENTERED FOR DISCHARGE: No METHOD OF PRESCRIBING MEDICATIONS: Reconcile medications as Patient Transfer ("65 button") TRANSITION ROUNDING COMPLETED WITH THE FOLLOWING: Patient / family Platform Operations Director Attending MD Bedside flying ii instructor RN COMMENTS / PATIENT AND FAMILY RESPONSE TO PLAN: Patient agreeable with discharge plan. Patient plans to discharge to [facility]. SELVIN spoke with Tabby from [facility] regarding discharge planning (ph: [phone]). Patient will need to bring her own supplies of oral chemo to . Patient's OP infusion appointment was moved up to 1100 ([phone]). Patient is anticipated to complete infusion around 1300. Patient's son, Morris, will provide patient vehicle transportation to after patient completes infusion. SELVIN spoke with Morris via phone to confirmed plan. SPECIAL TRANSITION DAY INSTRUCTIONS TO NURSE / MD: [facility] - Zoniz-ad-Nxrdc: [phone] Fx: [phone] CURRENT READMISSION RISK SCORE / HANDOFF: Predictive Risk Score Risk of Unplanned Readmission: 23.8 Handoff given: Oncology [facility] Nursing Staff CASE MANAGEMENT REFERRAL EDUCATION Patient in need of the following services: Transitional Care / [facility] / Swing Bed Discussion of this need and/or printed listing of available agencies has been provided to patient/substitute decision maker. Opportunities have been given for questions to be asked and answered. Patient/Substitute decision maker agency preferences for services (list in order of preference): 1. [facility] Referrals Made: Other: Profiled via [employer] to [facility] Medicare Comparison Information: Medicare guidelines require referring agencies to provide information regarding agency quality ratings. [facility] may assist with questions about facilities but cannot make recommendations. Patients and their families/decision makers are able to compare ratings of facilities at the following website: h ttps://www.medicare.gov/scdhu-ugyc-wmavmpgwm/wvjr-lqmhvtn-ykffbbc-[facility] r-providers or you may call 1-800-MEDICARE Acceptance/Placement: [facility] shares necessary clinical information with potential agencies to allow them to screen patients for safe admission to their facilities. This information is shared via secure communication. Acceptance by a post-acute facility is dependent on many factors including space, care needs, staffing, and insurance coverage. Financial disclosure: Verification of ownership of any agency/facility is available in the above Medicare website. [facility] is affiliated with [facility]-owned home care, [facility]ice, [facility], including agencies with [facility] in the name and [facility]. Additional agencies may not have [facility] in their name. Medicare guidelines require [facility] to provide a written list of options for your desired care. Youwill be provided a copy if desired. A copy of this document will be given to patient/substitute decision maker as confirmation of conversation regarding referrals and placement options. SIGNED: MICHELE Mims Store Detective PH. [phone] are Planning - Mikayla Rey RN - 04/14/2021 2:22 AM CDT Problem: PHYSICAL COMFORT Goal: CLIENT SATISFACTION: PAIN MANAGEMENT Description: DEFINITION: Extent of positive perception of nursing care to relieve pain. 1=Not at all satisfied, 2=Somewhat satisfied, 3=Moderately satisfied, 4=Very satisfied, 5=Completely satisfied. Outcome: NOC Rating 4 Flowsheets (Taken 04/14/2021 0219) Plan of care reviewed with: Patient Patient specific goal for the day: patient will ask for pain medication when needed Patient specific goal for the stay: prn medication will relieve discomfort Achieve goal for stay: By discharge Patient Progress: Patient states that her pain is tolerable and that her current regime is working.Aware to ask staff for analgesia when needed Problem: NAUSEA Goal: NAUSEA AND VOMITING SEVERITY Description: DEFINITION: Severity of signs and symptoms of nausea, retching, and vomiting. 1 = Severe, 2 = Substantial, 3 = Moderate, 4 = Mild, 5 = None. Outcome: NOC Rating 4 Flowsheets (Taken 04/14/2021 0219) Plan of care reviewed with: Patient Patient specific goal for the day: no emesis Patient specific goal for the stay: scheduled and prn antiemetic will help minimize nausea Achieve goal for stay: By discharge Patient Progress: Currently taking scheduled reglan for nausea. Did need zofran x1. Will continue to assess nausea. ase Mgmt - Shaquille, ONDINA Cazares - 04/13/2021 6:04 PM CDT CASE MANAGEMENT / SOCIAL SERVICE TRANSITION PLAN - PROGRESS NOTE PLAN: Will Continue to Follow for Support and Progression Towards Final Transition Plan BARRIERS TO TRANSITION: Awaiting Placement: [facility]sp/Swing Bed/TCU Medical barriers: Medical Stability DOES ACCEPTING FACILITY REQUIRE COVID TESTING BEFORE DISCHARGE: Needs one negative test within 24-48 hours COMMENTS / PATIENT AND FAMILY RESPONSE TO PLAN: CM reviewed patient's electronic medical record and received update from manager lpn. CM met with patient at bedside. CM and patient discussed discharge plan. Patient agreeable with discharge plan. [facility] offered patient a bed. Patient accepted [facility] bed offer. CM spoke with Tabby from [facility] regarding discharge planning (ph: [phone]). Tabby said will accept about Saturday 04/14 after patient's OP infusion appointment. Patient's OP infusion appointment was moved up to 1100 ([phone]). Patient is anticipated to complete infusion around 1300. Patient's son, Morris, will provide patient vehicle transportation to after patient completes infusion. CM spoke with Morris via phone to confirmed plan. Patient will need a covid test prior to admission to . Patient will need to bring her own suppliesof oral chemo to . Patient had no further questions or concerns regarding discharge planning. There were no further case management needs on this date. CM will continue to follow. Discharge Note: [facility] - Fprsl-[id number]: [phone] Fx: [phone] IS PATIENT'S ADMISSION ASSOCIATED WITH TIA, ISCHEMIC, OR HEMORRHAGIC STROKE?: No PATIENT / SUBSTITUTE DECISION MAKER GOAL UPON TRANSITION: First Choice: Swing Bed ANTICIPATED NEEDS UPON TRANSITION: Home Health: Bath Aid, Home Safety Evaluation, Nurse, Occupational Therapy and Physical Therapy [facility] Swing Bed Transitional Care RESOURCE(S) PROVIDED: Placement and Discharge Planning ANTICIPATED MODE OF TRANSPORT UPON TRANSITION: Family Car ANTICIPATED MODE OF TRANSPORT TO AND FROM FOLLOW UP APPOINTMENTS: Family Car Friend car VERIFIED CORRECT PHARMACY IS ENTERED FOR DISCHARGE: No TRANSITION ROUNDING COMPLETED WITH THE FOLLOWING: Patient / family Platform Operations Director Attending MD manager lpn Discussed in person SIGNED: MICHELE Mims Store Detective PH. [phone] are Planning - Lindsay Jansen RN - 04/13/2021 3:51 PM CDT Problem: NAUSEA Goal: NAUSEA AND VOMITING SEVERITY Description: DEFINITION: Severity of signs and symptoms of nausea, retching, and vomiting. 1 = Severe, 2 = Substantial, 3 = Moderate, 4 = Mild, 5 = None. Outcome: NOC Rating 3 Flowsheets (Taken 04/13/2021 7907) Plan of care reviewed with: Patient Patient specific goal for the day: Pt will notify staff of any onset nausea or vomiting Patient specific goal for the stay: Pt will have no new onset nausea or vomiting Achieve goal for stay: By discharge Patient Progress: Pt currently tolerating intake well, no complaints of nausea or vomiting. Scheduled Regaln given before meals. Pt states thats been helping. Pt ambulated x1 this shift. Will conitnue to monitor. Occupational Therapy - Shyanne Aguilar STUDENT - 04/13/2021 12:13 PM CDT Occupational Therapy Acute Care Progress Note Impression/Recommendations Recommending low intensity therapy setting upon medical stability. Pt presenting with impairments including decreased activity tolerance, generalized weakness, decreased safety awareness, and pain. Pt able to complete observed ADLs with assist x 1 and transfers/functional mobility with CGA/SBA and FWW. Pt continues to function below reported baseline level of independence. Acute OT will continue per POC to maximize functional outcomes needed for optimal quality of life. Objective Diagnosis: ICD-10-CM 1. Nausea R11.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 Gastric outlet obstruction K31.1 TISSUE EXAM 5. Bowel obstruction (HCC) K56.609 TISSUE EXAM Precautions: Bed/chair alarms, abdominal precautions, and Fall Risk Infection Control: Medication Risk Hazard: high Cognition: Pt is alert. Oriented to: Name, , Month and Year; re-oriented to specific date. Educaiton provided on abdominal precautions/protection techniques with pt verbalizing understanding. Pt does show decreased safety awareness by attempting to stand prior to OT having transfer belt donned andprior to having FWW in front of her. Additionally, during donning/doffing socks, pt reached down to floor to picking machine operator helper sock, even after OT provided education on abdominal precautions and as OT indicatingduring session to use phone screener to adhere to abdominal precautions. U/E: Instructed pt on graded BUe strengthening using 1# hand wt for exercises x 15 reps. Completedseated. Pt only able to complete 5 reps of approximately 3 exercises in RUE due to lymphedema. Pt able to complete all exercises with LUE. Education provided on proper form and positioning. Fatigues with exercise. Therapeutic rests throughout improving activity tolerance and performance. ADLs: Grooming: Pt SBA to brush hair and put it in a ponytail while seated EOB. Pt attempted to calf skinner look in mirror over sink prior to OT donning transfer belt/FWW being in front of pt. Pt agreeable to sitting back down and having OT columba transfer belt and obtain FWW. Pt required CGA/SBA to calf skinner front of sink to fix hair. Pt declined wash/dry face and oral cares as completed earlier today. Dressing: SBA to doff/columba B gripper socks. Pt able to doff L sock with crossover method, however, required phone screener to doff R sock due to sciatica in RLE. Pt attempted to obtain gripper socks through reaching down even after OT provided education on use of phone screener to obtain to adhere to abdominal prec autions. Pt required SBA to columba with sock aide. Toileting: Upon OT's arrival, pt able to toilet SBA-independent with RN assisting as needed. Transfers: Bed: SBA supine<>sit, CGA/SBA sit<>stand with use of FWW, cues for hand placement. Toilet: Appeared to be SBA-indep sit<>stand from toilet with RN assisting as needed Chair: not assessed At end of session: Patient resting in bed Pain: Pain at rest: 11/30 Pain during activity: 01/30 Location: Abdominal incision Vitals: Pt on RA without signs of shortness of breath during OT. SpO2 at rest and with activity >90% Transfer belt and nonslip footwear used with all out of bed activities. Pt was left lying comfortably in bed at end of session, with bed positioned in locked/lowest setting, alarm on, safety parameters in place. Call light, phone, and bedside table placed within reach at end of session. Education provided on using call light and waiting for staff assistance before getting up. Pt verbalizes understanding/agreement. RN in with pt upon start of OT session. SCDs donned prior to OT's departure. Education Education/Training provided: Role of OT, plan of care, ADLs, transfers/mobility, safety, AE needs,d/c recommendations, UE ROM/exercises, abdominal precautions Learners: Patient Readiness: accepting Method of Training: verbal and demonstration Response: Verbalizes understanding; Will benefit from continued reinforcement: yes Adaptive Equipment Recommendations Adaptive Equipment Recommended: phone screener (Pt receptive and wanting prior to return home, but wants to go to swing bed first) Adaptive Equipment Available: toilet riser without arms, shower chair, grab bars tub/shower, grab bars toilet, sock aid with long/solid handle (not rope handles like in OT), long-handled shoe horn, front-wheeled walker and 4 wheeled walker Plan to obtain adaptive equipment: To further assess. Goals Patient/Family Stated Goal for Session: agreeable to therapy Short Term/Fruit Stuffer Goals: Patient will tolerate 15-30 minutes U/E exercise to further increase independence with ADL/IADLs (ongoing) Patient will complete grooming task safely standing at the sink withSBAusing adaptive equipment as needed. (ongoing) Patient will complete LB dressing safely withSBAusing adaptive equipment as needed. (ongoing) Patient will complete toileting safely withSBAusing adaptive equipment as needed. (ongoing) Patient will complete functional transfers safely withSBAusing adaptive equipment as needed. (ongoing) Patient will further participate with cognitive assessment to increase safety with functional tasks.(ongoing) Patient will have AE in place to increase safety with ADLs by discharge (ongoing) Patient continues to demonstrate progress towards OT goals: Yes Charges Treatment/Minutes: Today's Evaluation/Treatment Self care/home management: 15 minutes Therapeutic exercise: 12 minutes Total Treatment Time: 27 minutes Treatment Session 11/25 Weekly Assessment/Plan (): Continue OT POC. Therapist Alpha Pager Number [phone] Associated attestation - Raina Alfaro OTR/L - 04/13/2021 1:53 PM CDT IRaina MOT, OTR/Rod, have reviewed the above note and findings and agree with plan of care. PAULINO Moreno OTR/Rod Pager [phone] Therapy - Yogi Werner, PT - 04/13/2021 9:59 AM CDT Physical Therapy Acute Inpatient Treatment Note ASSESSMENT/RECOMMENDATIONS Pt tolerated well. Ambulating 80 feet with SBA and FWW. Better activity tolerance this date. Pt is mobilizing below her functional baseline and would benefit from ongoing therapy in a low intensity rehab setting to progress independence in mobility. Pt is limited in social support on DC and will need to be quite independent in functional mobility on return to home 6-Clicks Basic Mobility Score: 16 Activity Prescription with Nursing: With assist of 1, walk in gomez 3 times per day. At a minimum, up to chair for all meals or 3 times per day. Assist patient to complete exercises 10 times, 3 times per day. Sit to stands and in standing: leg lifts out to the side, marching, air boxing. Encourage patient to perform personal cares at sink when able. Encourage walking to bathroom rather than use commode or bedpan. Anticipated D/C Service needs: Low intensity setting SUBJECTIVE Pt sitting up in chair and is agreeable to PT at this time OBJECTIVE Bed Mobility: Transfers: Sit to/from stand with SBA and FWW Gait: 80 feet with FWW and SBA. Forward flexed and gait is antalgic in nature. Poor heel strike on the R Stairs: Therapeutic Exercises: Balance Training: Independent in seated dynamic balance Other: Pt left sitting up in chair in no apparent distress Education: PT POC Response to Activity: Modified Nyla RPE: 1/10 Interdisciplinary Communication: Spoke with interdisciplinary team members regarding patient plan ofcare. PLAN Continue plan of care. Today's Treatment: Gait Trainin minutes Therapeutic Exercise: 0 minutes Therapeutic Activity: 15 minutes TOTAL TIMED CODES: 25 minutes TREATMENT TOTAL TIME: 25 minutes Yogi Werner PT, DPT Alpha Pg [phone] are Planning - Bebe Armenta RN - 04/12/2021 10:44 PM CDT Problem: PHYSICAL COMFORT Goal: CLIENT SATISFACTION: PAIN MANAGEMENT Description: DEFINITION: Extent of positive perception of nursing care to relieve pain. 1=Not at all satisfied, 2=Somewhat satisfied, 3=Moderately satisfied, 4=Very satisfied, 5=Completely satisfied. Outcome: NOC Rating 3 Flowsheets (Taken 04/12/2021 3987) Initial Score: 3 Target Score: 5 Plan of care reviewed with: Patient Patient specific goal for the day: Patient will notify staff of increasing pain Patient specific goal for the stay: Patient will be satisfied with pain management plan Achieve goal for stay: By discharge Patient Progress: Pt pain is controlled with PRN pain meds. Pt denies additional interventions at this time. Call light in reach. ase Mgmt - Sage Corbin LSW - 04/12/2021 4:11 PM CDT CASE MANAGEMENT / SOCIAL SERVICE TRANSITION PLAN - PROGRESS NOTE PLAN: Will Continue to Follow for Support and Progression Towards Final Transition Plan BARRIERS TO TRANSITION: Awaiting Placement: [facility]/Swing Bed/TCU Medical barriers: Medical Stability DOES ACCEPTING FACILITY REQUIRE COVID TESTING BEFORE DISCHARGE: Needs one negative test within 24-48 hours COMMENTS / PATIENT AND FAMILY RESPONSE TO PLAN: CM reviewed patient's electronic medical record and received update from manager lpn. CM met with patient at bedside. [facility] offered patient a bed. Patient accepted [facility] bed offer. CM spoke with Tabby from [facility] regarding discharge planning (ph: [phone]). Tabby said [facility] will accept about Saturday 04/14 after patient's OP infusion appointment. Patient's OP infusion appointment was moved up to 1100 ([phone]). Patient is anticipated to complete infusion around 1300. Patient's son, Morris, will provide patient vehicle transportation to after patient completes infusion. CM spoke with Morris via phone to confirmed plan. Patient will need a covid test prior to admission to . Patient will need to bring her own suppliesof oral chemo to . Patient had no further questions or concerns regarding discharge planning. There were no further case management needs on this date. CM will continue to follow. Discharge Note: [facility] - Bfumv-nl-Msycq: [phone] Fx: [phone] IS PATIENT'S ADMISSION ASSOCIATED WITH TIA, ISCHEMIC, OR HEMORRHAGIC STROKE?: No PATIENT / SUBSTITUTE DECISION MAKER GOAL UPON TRANSITION: First Choice: Swing Bed ANTICIPATED NEEDS UPON TRANSITION: Home Health: Bath Aid, Home Safety Evaluation, Nurse, Occupational Therapy and Physical Therapy [facility] Sw[facility] Bed Transitional Care RESOURCE(S) PROVIDED: Placement and Discharge Planning ANTICIPATED MODE OF TRANSPORT UPON TRANSITION: Family Car ANTICIPATED MODE OF TRANSPORT TO AND FROM FOLLOW UP APPOINTMENTS: Family Car Friend car VERIFIED CORRECT PHARMACY IS ENTERED FOR DISCHARGE: No TRANSITION ROUNDING COMPLETED WITH THE FOLLOWING: Patient / family Platform Operations Director Attending manager lpn Discussed in person SIGNED: MICHELE Mims Store Detective PH. 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 Once patient is meeting >75% of nutritional needs orally, discontinue TPN. NUTRITION ASSESSMENT Anthropometrics: Height: 170.2 cm (5' 7") Admission Wt: Weight: 70.1 kg (154 lb 8 oz) as of 03/31/2021 per bed scale Most Recent Wt: Weight: 76.7 kg (169 lb) (04/10/21 0500) per bed scale Lowest Weight Since Admit: 70.1 kg Weight Change: +3 lb since admission BMI: Body mass index is 26.47 kg/m. IBW: 61 kg %IBW: 115% (based on admit weight) Usual Body Weight: (135-140 lb) Unintentional Weight Loss: 8 lb (4.9%) weight loss in the last month - borderline significant. Had been stable x 1 year prior. Vitals WEIGHT WEIGHT IN KG 03/31/2021 154 lb 8 oz 70.081 kg 03/24/2021 159 lb 9.6 oz 72.394 kg 03/03/2021 162 lb 1.6 oz 73.528 kg 01/13/2021 165 lb 3.2 oz 74.934 kg 04/15/2020 152 lb 8 oz 69.174 kg Estimated Needs: For TPN 1750-1900kcal/day(25-27 kcal/kgUsing: Admission Weight) 92-122gm protein(1.5-2gm/kg Using:[place] Body Weight) Fluids per MD Estimated average intake over the last 4 days: 1320 kcal and 85 gm protein, which meets: 88 % of estimated kcal needs and 90 % of estimated protein needs. Intake Records: Intake Prior to Admit: Adequate Patient voices a good appetite and normal intake until 1 day TOOLMAKER GRADE THREE. She voices trying to eat small portions throughout the day and would have emesis with anything she tried to eat. She then came into hospital the next day. Patient normally eats 3 meals daily with snacks. 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 Breakfast: oatmeal (brown sugar and raisins, or applesauce and cinnamon), or two slices of whole grain toast with jelly Lunch (largest meal): meat with 2-3 types of vegetables or salad Supper: Typically same as lunch only smaller portion - meat with potatoes and vegetable Snacks: snacks a couple times a day on fruit, or cottage cheese Current Intake: TPN decreased to 1/2. Patient just started a regular diet. Current Diet: Regular Current Parenteral Nutrition: 57.5 gm protein, 350 kcal/day CHO, and 300 kcal/day Lipids Total Nutrition From TPN: 880 kcals (50% of estimated needs) 57.5 gm pro (60% of estimated needs) Multivitamins and trace elements given daily Date TPN Started: 04/02 Reason TPN Started: Inability to take sufficient PO, NPO Physical Assessment: Edema: (per chief optometry service at 1704 today) RUE Edema 1 GI Assessment: Abdominal exam: Surgical incision with Hypoactive bowel sounds, per chief optometry service at 0100 today. Stool Frequency: 0-3x/day over the last 3 days Wounds/Pressure Points: WDL (per chief optometry service at 0100 today) Functional Status: PT Following OT Following Nutrition Focused Physical Exam: Completed by RD on 04/04/2021 Below the Eye (fat): Slightly Bulged Fat Pads (Within Defined Limits) Jainism (muscle): Able to see/feel well-defined muscle (Within defined limits) Buccal (fat): Full, round/filled out cheeks (Within defined limits) Clavicle (muscle): Some protrusion of bone (mild-moderate) (Mild) Shoulder (muscle)/Deltoid muscle: Rounded curves at arm/shoulder/neck (Within defined limits) Triceps/Biceps (fat): Ample fat tissue obvious between folds of skin (Within defined limits) Hand/Interosseous (muscle): Flat to bulging muscle (Within defined limits) Thigh (muscle): Well-rounded, no bone prominence (Within defined limits) Calf (muscle): Well-developed bulb of muscle (Within defined limits) Nutritionally-Relevant Medications, Vitamins and Minerals: Pepcid, Dilaudid, Lactase, Reglan, Senokot, TPN Nutritionally-Relevant Biochemical Data: (04/12/2021) Glucose 108 H Albumin 3.1L Allergies/Food Intolerance: Sabrina is allergic to penicillin, tetracyclines, arimidex [anastrozole], aspirin, ciprofloxacin, influenza vaccines, lactose [milk/dairy products], macrodantin [nitrofurantoin], singulair [montelukast sodium], and sulfa drugs. Culturally Sabianist Needs: no INTERVENTIONS EMR reviewed and events noted TPN recommendations provided MONITORING/EVALUATION Monitor diet advancement/tolerance Monitor NPO duration Monitor TPN, tolerance and labs with regular f/u assessments. Adjust TPN as needed. Nutrition Therapy will reassess every 1-[address], LRZeus Pager # [phone] ccupational Therapy - Shyanne Aguilar, STUDENT - 04/12/2021 1:17 PM CDT Attempted to see pt for OT, however, pt declined due to feeling nauseous. Pt states RN aware. OT will continue to follow acutely as pt able/appropriate. LADONNA Francis Pager: [phone] Associated attestation - Raina Alfaro OTR/L - 04/12/2021 1:51 PM CDT I, PAULINO Moreno OTR/Rod, have reviewed the above note and findings and agree with plan of care. PAULINO Moreno OTR/Rod Pager [phone] Planning - Bebe Armenta RN - 04/12/2021 3:16 AM CDT Problem: PHYSICAL COMFORT Goal: CLIENT SATISFACTION: PAIN MANAGEMENT Description: DEFINITION: Extent of positive perception of nursing care to relieve pain. 1=Not at all satisfied, 2=Somewhat satisfied, 3=Moderately satisfied, 4=Very satisfied, 5=Completely satisfied. Outcome: NOC Rating 4 Flowsheets (Taken 04/12/2021 0315) Initial Score: 4 Target Score: 5 Plan of care reviewed with: Patient Patient specific goal for the day: Patient will notify staff of increasing pain Patient specific goal for the stay: Patient will be satisfied with pain management plan Achieve goal for stay: By discharge Patient Progress: Pt pain is controlled with PRN pain meds. Pt denies additional interventions at this time. Call light in reach. are Planning - Salome Rousseau RN - 04/11/2021 5:28 PM CDT Problem: NAUSEA Goal: NAUSEA AND VOMITING SEVERITY Description: DEFINITION: Severity of signs and symptoms of nausea, retching, and vomiting. 1 = Severe, 2 = Substantial, 3 = Moderate, 4 = Mild, 5 = None. Outcome: NOC Rating 4 Flowsheets (Taken 04/11/2021 172) Initial Score: 4 Target Score: 5 Plan of care reviewed with: Patient Patient specific goal for the day: Pt will notify staff of any onset nausea or vomiting Patient specific goal for the stay: Pt will have no new onset nausea or vomiting Achieve goal for stay: By discharge Patient Progress: Pt currently tolerating intake well, no complaints of nausea or vomiting Occupational Therapy - Debbie Perkins OTR/L - 04/11/2021 2:23 PM CDT Pt declining all exercises and OOB activity for OT session this date, stating "I just want to nap," and "some sleep will do me good." Pt reports returning self to supine after dangling at EOB to each lunch. This author assists pt with arranging her bed sheets before exiting the room. Pt left in bed with bed in lowest position, tray table and call light within reach. Acute OT will continue to follow 04/12 as able/appropriate. JOY Adames Alpha Pager: [phone] ase Mgmt - Sage Corbin LSW - 04/11/2021 11:19 AM CDT CASE MANAGEMENT / SOCIAL SERVICE TRANSITION PLAN - PROGRESS NOTE PLAN: Will Continue to Follow for Support and Progression Towards Final Transition Plan BARRIERS TO TRANSITION: Awaiting Placement: [facility]/Swing Bed/TCU Medical barriers: Medical Stability DOES ACCEPTING FACILITY REQUIRE COVID TESTING BEFORE DISCHARGE: N/A COMMENTS / PATIENT AND FAMILY RESPONSE TO PLAN: CM reviewed patient's electronic medical record and received update from manager lpn. CM met with patient at bedside. Patient and CM discussed discharge planning. PT/OT are recommending low intensity setting. Patient would like to discharge to the [facility] Swing bed. CM profiled patient through [facility] to [facility]. [facility] Swing bed considering patient at this time. CM informed patient with updates. Patient had no questions or concerns regarding discharge planning at this time. There were no further case management needs on this date. CM will continue to follow. IS PATIENT'S ADMISSION ASSOCIATED WITH TIA, ISCHEMIC, OR HEMORRHAGIC STROKE?: No PATIENT / SUBSTITUTE DECISION MAKER GOAL UPON TRANSITION: First Choice: Swing Bed ANTICIPATED NEEDS UPON TRANSITION: Home Health: Bath Aid, Home Safety Evaluation, Nurse, Occupational Therapy and Physical Therapy [facility] Swing Bed Transitional Care RESOURCE(S) PROVIDED: Placement - [facility] ANTICIPATED MODE OF TRANSPORT UPON TRANSITION: Family Car vs Arranged transportation ANTICIPATED MODE OF TRANSPORT TO AND FROM FOLLOW UP APPOINTMENTS: Family Car Friend car VERIFIED CORRECT PHARMACY IS ENTERED FOR DISCHARGE: No - Will verify upon discharge TRANSITION ROUNDING COMPLETED WITH THE FOLLOWING: Patient / family Platform Operations Director Attending MD Yap RN Discussed in person SIGNED: MICHELE Mims Store Detective PH. [phone] linical Team - Annabella Christian RN - 04/10/2021 10:26 PM CDT Pt had episode of slight anxiety and restlessness. PRN Ativan was given with relief and patient is resting comfortably. Nurse will continue to monitor and update as needed. are Planning - Annabella Christian RN - 04/10/2021 10:26 PM CDT Problem: PHYSICAL COMFORT Goal: CLIENT SATISFACTION: PAIN MANAGEMENT Description: DEFINITION: Extent of positive perception of nursing care to relieve pain. 1=Not at all satisfied, 2=Somewhat satisfied, 3=Moderately satisfied, 4=Very satisfied, 5=Completely satisfied. Outcome: NOC Rating 4 Flowsheets (Taken 04/10/20212224) Initial Score: 4 Plan of care reviewed with: Patient Patient specific goal for the day: Patient will notify staff of increasing pain Note: Pt aox4, vss, continues to rate pain 5-6/10 in the abdomen. Pt is using PRN Oxy and Tylenol for pain control. Nurse will continue to monitor and update as needed. ase Mgmt - Sage Corbin LSW - 04/10/2021 4:43 PM CDT CASE MANAGEMENT / SOCIAL SERVICE TRANSITION PLAN - PROGRESS NOTE PLAN: Will Continue to Follow for Support and Progression Towards Final Transition Plan BARRIERS TO TRANSITION: Awaiting Placement: Usp/Swing Bed/TCU Medical barriers: Medical Stability -- gastrojejunal bypass surgery 04/07 DOES ACCEPTING FACILITY REQUIRE COVID TESTING BEFORE DISCHARGE: N/A COMMENTS / PATIENT AND FAMILY RESPONSE TO PLAN: CM reviewed patient's electronic medical record and received update from manager lpn. CM met with patient at bedside. Patient and CM discussed discharge planning. PT/OT are recommending low intensity setting. Patient would like to discharge to the . [facility]. Awaiting placement. Patient had no questions or concerns regarding discharge planning at this time. There were no further case management needs on this date. CM will continue to follow. IS PATIENT'S ADMISSION ASSOCIATED WITH TIA, ISCHEMIC, OR HEMORRHAGIC STROKE?: No PATIENT / SUBSTITUTE DECISION MAKER GOAL UPON TRANSITION: First Choice: Swing Bed Second Choice: Home Health: Bath Aid, Home Safety Evaluation, Nurse, Occupational Therapy and Physical Therapy Home: Family/Friend Support ANTICIPATED NEEDS UPON TRANSITION: Home Health: Bath Aid, Home Safety Evaluation, Nurse, Occupational Therapy and Physical Therapy [facility] Facility Swing Bed Transitional Care RESOURCE(S) PROVIDED: Placement - [facility] ANTICIPATED MODE OF TRANSPORT UPON TRANSITION: Family Car vs Arranged transportation ANTICIPATED MODE OF TRANSPORT TO AND FROM FOLLOW UP APPOINTMENTS: Family Car Friend car VERIFIED CORRECT PHARMACY IS ENTERED FOR DISCHARGE: No - Will verify upon discharge TRANSITION ROUNDING COMPLETED WITH THE FOLLOWING: Patient / family Platform Operations Director Attending MD Yap RN Discussed in person SIGNED: MICHELE Mims Store Detective PH. [phone] linical Team - Jose Pinto RN - 04/10/2021 1:51 PM CDT VSS on room air. WAXER discontinued and patient given PRN oxycodone for pain control. Ambulated this AM and encouraged to ambulate this afternoon but currently wants to rest due to feeling nauseous. Given scheduled Reglan to help with nausea. Patient reports passing a little bit of gas today. Abdomen slightly firm. Paged Dr. Franklin and received PRN and scheduled stool softener orders. Will continueto monitor. are Planning - Jose Pinto RN - 04/10/2021 1:44 PM CDT Problem: PHYSICAL COMFORT Goal: CLIENT SATISFACTION: PAIN MANAGEMENT Description: DEFINITION: Extent of positive perception of nursing care to relieve pain. 1=Not at all satisfied, 2=Somewhat satisfied, 3=Moderately satisfied, 4=Very satisfied, 5=Completely satisfied. Outcome: NOC Rating 3 Flowsheets (Taken 04/10/2021 1343) Initial Score: 4 Target Score: 4 Plan of care reviewed with: Patient Patient specific goal for the day: Patient will notify staff of increasing pain Patient specific goal for the stay: Patient will be satisfied with pain management plan Patient Progress: dilaudid WAXER discontinued and has PRN oxycodone available. patient reporitng 6/10 pain and given PRN oxycodone with decent relief. patient encouraged to ambulate in afternoon. will continue to monitor. Occupational Therapy - Cherie Ramirez OTR/Rod - 04/10/2021 9:15 AM CDT Occupational Therapy Acute Care Progress Note Impression/Recommendations Pt continues to function below reported baseline level of independence. Pt requires assist x 1 for ADLs/transfers. Pt continues to present with impairments in strength, activity tolerance, safety, balance, functional transfers/mobility, and ADL/IADL completion. Abdominal pain/tenderness from recent surgery is impacting ability to perform ADLs/transfers and she is not presenting as safe to return homealone at this time. Pt in agreement; Pt to benefit from continued skilled OT to address areas of limitation. OT recommends low-intensity therapy setting (i.e. ST SNF, TCU, swing bed, etc) when medically stable with continued skilled OT services. Acute OT will continue per POC to maximize functional out comes needed for optimal quality of life. Objective Diagnosis: ICD-10-CM 1. Nausea R11.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 Gastric outlet obstruction K31.1 TISSUE EXAM 5. Bowel obstruction (HCC) K56.609 TISSUE EXAM Precautions: Bed/chair alarms and Fall Risk Infection Control: Medication Risk Hazard: high Cognition: Pt is alert. Oriented to: Name, , Month, Year, Place, City and Situation; re-orientedto specific date. Pt able to follow 1-step commands well. Pt directs own care, is able to state whatshe feels she can participate in and what she cannot this date. U/E: U/E exercise performed to promote joint integrity, reduce risk of contracture formation and facilitate enhancement of strength and endurance/activity tolerance, to further independence with ADLs/IADLs. Pt completed R UE: AROM 10 x 1 for all available motions/planes; L UE 10 x 1 for shoulder flexion, then reports her elbow crease is sore (arm was straight t/o shoulder flexion) d/t IV and no other shoulder motions or elbow motions were performed. With arm resting on bed, Pt tolerated 5 x 1 of Lforearm supination/pronation, wrist flexion/extension and 10x 1 for digit flexion/extension. OT provided education on correct technique, speed and achieving full (tolerated) end range. Pt will require reinforcement of this education/training. Required rest breaks after each exercise per arm d/t weaknes s, fatigue and decreased activity tolerance. Patient required moderate assist to track the number ofrepetitions and maintain proper form throughout each exercise. Re: IV site at L elbow crease, after shoulder flexion was completed where she did not move the elbow, Pt states "oh my it's bleeding", OT observed skin to still be light pink and mildly swollen around IV site, dried blood at insertion site with dressing covering IV site as it was upon arrival of OT this date. Jose KAMINSKI informed of pt's report of pain in L elbow crease, Pt states that this is the 4thIV she has had in this arm. Please note R UE is edematous from wrist to axilla, Pt states this is baseline d/t lymphedema s/p CA. Pt states that she has a compression sleeve she wears for lymphedema mgmt, but not currently wearing. Pt reports that she feels the swelling is actually down in the R UE currently and demonstrates that she can touch her nose with her R hand, and states she typically has somuch fluid that she cannot flex elbow to reach nose. ADLs: Grooming: Declines as she had just completed with PCT assist prior to OT session Dressing: Upper body: moderate assistance from bed level Lower body: maximum assistance without adaptive equipment. Initiated training on AE, Pt declined to trial this date d/t fatigue and discomfort in abdomen and L elbow, and wanting to lay back down. Discussed AE options and Pt states that she is aware of AE and has some at home (has a sock aid with hard handle, long- handled shoe horn, states she does need a phone screener and is interested in obtaining one before she is ready to return to her home), Pt states she is willing to trial and work towards increasing her independence with dressing tasks and AE training in future sessions. Toileting: Declines need at this time; has hawk in place. Transfers: Bed: moderate assistance for supine to sit and minimal assistance for EOB to supine; education/training on log-roll technique, HOB elevated 20 degrees and side rail used. Sit <> stand: minimal assistance/contact guard assistance EOB to/from stand. Fatigued, sore and needs to return to bed to rest. States tired from walk with PT and getting washed up with PCT prior to OT session. Toilet: Declines need At end of session: Patient resting in bed, Alarm activated, Bed in lowest position, Call light and tray table within reach, Encouraged patient to use call light for assistance, RN updated on patient status, Gripper socks donned for OOB activity and Gait belt donned Pain: Pain at rest: 3-4/10 Pain during activity: 3-4/10 Location: abdomen. Pt does not give number rating for L elbow, but talks of that being more bothersome to her than the abdomen, Jose KAMINSKI was informed. Pt used WAXER prior to start of OT tasks, not used again t/o session. Vitals: Pt on RA without signs of shortness of breath during OT. SpO2 at rest and with activity >90% Interdisciplinary Communication: Platform Operations Director/Store Detective, Physical Therapist and Nurse Jose Education Education/Training provided: Role of OT, plan of care, ADLs, transfers/mobility, safety, AE needs,d/c recommendations, UE ROM/exercises Learners: Patient Readiness: accepting Method of Training: verbal, demonstration and hands on demonstration Response: Verbalizes understanding; Will benefit from continued reinforcement: yes Adaptive Equipment Recommendations Adaptive Equipment Recommended: phone screener (Pt receptive and wanting prior to return home, but wants to go to swing bed first) Adaptive Equipment Available: toilet riser without arms, shower chair, grab bars tub/shower, grab bars toilet, sock aid with long/solid handle (not rope handles like in OT), long-handled shoe horn, front-wheeled walker and 4 wheeled walker Plan to obtain adaptive equipment: To further assess. Goals Patient/Family Stated Goal for Session: agreeable to therapy Short Term/Custodial Goals: Patient will tolerate 15-30 minutes U/E exercise to further increase independence with ADL/IADLs (ongoing) Patient will complete grooming task safely standing at the sink withSBAusing adaptive equipment as needed. (ongoing) Patient will complete LB dressing safely withSBAusing adaptive equipment as needed. (ongoing) Patient will complete toileting safely withSBAusing adaptive equipment as needed. (ongoing) Patient will complete functional transfers safely withSBAusing adaptive equipment as needed. (ongoing) Patient will further participate with cognitive assessment to increase safety with functional tasks.(ongoing) Patient will have AE in place to increase safety with ADLs by discharge (ongoing) Patient continues to demonstrate progress towards OT goals: Yes Charges Treatment/Minutes: Today's Evaluation/Treatment Self care/home management: 12 minutes Therapeutic exercise: 12 minutes Total Treatment Time: 24 minutes Treatment Session 2/ Weekly Assessment/Plan (Day 5): Will continue per OT POC while Pt remains in acute care setting. Therapist [facility] Pager Number [phone] hysical Therapy - Gabriela Ortiz, PT - 04/10/2021 8:44 AM CDT Physical Therapy Acute Inpatient Initial Evaluation ASSESSMENT/RECOMMENDATIONS Patient is not at their baseline level of function for mobility. Patient would benefit from furtherphysical therapy while in acute setting. PT anticipates that patient may benefit from further physical therapy at short term low intensity setting, TCU, following discharge from hospital. 6-Clicks Basic Mobility Score: 16 Activity Prescription with Nursing: With assist of one using front wheeled walker with gait belt with contact guard assist of one. , walk in room and progressively increase to out in the gomez 3 times per day. At a minimum, up to chair for all meals or 3 times per day. Encourage walking to bathroom rather than use commode or bedpan. Anticipated D/C Service needs: Low intensity setting Diagnosis: ICD-10-CM 1. Nausea R11.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 Gastric outlet obstruction K31.1 TISSUE EXAM 5. Bowel obstruction (HCC) K56.609 TISSUE EXAM Prescription: Eval and Treat Admit Date: 03/31/2021 Pertinent Medical / Surgical History: Patient has a past medical history of Breast cancer (HCC), CHF (congestive heart failure) (HCC), COPD (chronic obstructive pulmonary disease) (HCC), Degenerative joint disease of right hip, Hyperlipidemia, Hypertension, and Pleural effusion on right. Patient has a past surgical history that includes tonsillectomy (age 7); tubal ligation; surgery; upper endoscopy (N/A, 04/01/2021); and lap gastric resection robotic (N/A, 04/07/2021). Current medical status: Please see diagnoses listed above. Precautions: Patient at Fall Risk. Patient is on a high risk hazardous medication. SUBJECTIVE Patient and nursing were in agreement for physical therapy treatment today. Social History: Patient lives: Lives in a house. Home environment: Lives alone. Steps: No steps. Employment: Retired. Prior Level of Function: Activities of Daily Living: Was independent with all activities. Mobility: Walked independently with 4 or front wheeled walker. History of falls: No Home O2: No Adaptive equipment available: Front wheeled , 4 wheeled walker, shower chair and bench in shower. Patient Concerns: No concerns. Patient/Family Goals: Get better and get home. OBJECTIVE Patient seen at bedside. Cognition: Alert and oriented. Pain: Pain of 3/10. Posture: Forward head and shoulder positioning. Observation: Patient had IV in left UE. Patient had Hawk Catheter in place. Patient was on TPN. Range of Motion: Bilateral lower extremities WFL Refer to Occupational Therapy report for upper extremity range of motion. Strength: Bilateral lower extremities WFL Refer to Occupational Therapy report for upper extremity strength testing. Sensation: Numbness in bilateral LE's. Tone: Normal. Coordination: Not formally assessed. Bed Mobility: Supine to Sit: Patient was sitting up at edge of bed when PT arrived with FIRST HELPER present. Patient wasable to sit up at edge of bed for ~ 4 minutes with stand by assist of one. Sit to Supine: Minimal assist of one. PT worked with patient on log rolling technique to decreasestress on surgical area. Patient given verbal and demonstrated instruction in this. Patient was able to assist with placing self straighter in bed. Transfers: Sit to/from Stand: Contact guard assist of one using a front wheeled walker with gait belt placed high. Patient was able to do this x 2. Balance: Static Sitting Balance: Good. Dynamic Sitting Balance: Good. Static Standing with front wheeled walker Assistive Device: Fair with contact guard assist of one. Dynamic Standing with front wheeled walker Assistive Device: Fair with contact guard assist of one. Gait: Patient ambulated ~ 100 ft x 1 using a front wheeled walker with contact guard assist of one. Patient showed nice gait pattern with equal stride lengths. Patient walks with forward flexed position secondary to recent surgery. Patient also did standing by edge of bed with front wheeled walkerfor ~3 minutes with contact guard assist of one. Patient reported that they have a tendency to bearweight more on their left LE than right while standing in place. Response to Activity: Modified Nyla RPE: 4 Vitals: HR was 79 at rest and 93 following activities. , O2 sats showed SPO2 was 96% and rest and improved to 100% following activities while on room air. Education: Patient was educated on PT plan of care and log rolling technique today through explanation and demonstration. They were eager to learn and verbalized understanding and will need reinforcement. Interdisciplinary Communication: Spoke with interdisciplinary team members regarding patient plan ofcare. Today's Treatment Evaluation: Completed Gait trainin minutes Therapeutic exercise: 0 minutes Therapeutic activity: 10 minutes TOTAL TIME-CODED MINUTES: 10 minutes TOTAL TREATMENT TIME: 25 minutes Treatment provided: Patient seen for PT evaluation. Patient also seen for Therapeutic Activities as stated above. GOALS Goals to be achieved by discharge. Patient will be aware of equipment recommendations as indicated in note to allow for safe mobility. Patient will transfer sit to/from supine with no assistance. Patient will transfer from sit to/from stand with no assistance and equipment as needed to progress to safe household mobility. Patient will be able to ambulate 250 feet using front wheeled walker with stand by assistance to progress to safe functional mobility in the home. Patient and/or caregiver will be independent with performance and progression of home exercise program for continued management of symptoms. Patient will demonstrate adequate awareness of fall prevention tactics to reduce risk of falling. PLAN Will continue 5 times per week. Physical Therapy Services: balance training bed mobility training education equipment gait training home exercise instruction postural training therapeutic activity therapeutic exercise transfer training CERTIFICATION I certify that the services as described in the above note are furnished while the patient is under my care; a plan for furnishing these services has been established and will be periodically reviewed;the services are required for the patient; and the services are subject to established guidelines. Referring Provider: Fe Bowie MD Roberta J Votava, PT [facility] Pager [phone] are Planning - Annabella Christian RN - 04/09/2021 11:13 PM CDT Problem: PHYSICAL COMFORT Goal: CLIENT SATISFACTION: PAIN MANAGEMENT Description: DEFINITION: Extent of positive perception of nursing care to relieve pain. 1=Not at all satisfied, 2=Somewhat satisfied, 3=Moderately satisfied, 4=Very satisfied, 5=Completely satisfied. Outcome: NOC Rating 4 Flowsheets (Taken 04/09/2021 3688) Initial Score: 4 Plan of care reviewed with: Patient Patient specific goal for the day: Patient will notify staff of increasing pain Note: Pt aox4, vss, currently resting comfortably in bed. Rating pain 5/10 with use of WAXER Dilaudid and scheduled tylenol. Nurse educated pt on notifying nursing of increased pain. Nurse will continue to monitor. are Planning - Radha Marinelli RN - 04/09/2021 3:24 PM CDT Problem: PHYSICAL COMFORT Goal: CLIENT SATISFACTION: PAIN MANAGEMENT Description: DEFINITION: Extent of positive perception of nursing care to relieve pain. 1=Not at all satisfied, 2=Somewhat satisfied, 3=Moderately satisfied, 4=Very satisfied, 5=Completely satisfied. Outcome: NOC Rating 4 Flowsheets (Taken 04/09/2021 1523) Plan of care reviewed with: Patient Patient specific goal for the day: Patient will notify staff of increasing pain Patient specific goal for the stay: Patient will be satisfied with pain management plan Achieve goal for stay: By discharge Patient Progress: Pt reports pain is primarily controlled with WAXER and positioning, denies oral medications, has only used WAXER pump twice thus far in shift, will continue to monitor. hysical Therapy - Gabriela Ortiz PT - 04/09/2021 1:39 PM CDT PT orders received and acknowledged. Attempted to see patient this morning and patient had just returned to bed from being up in the chair. Patient declined due to being fatigued. Attempted to see patient this afternoon and patient did not feel up to physical therapy for today. Will attempt to see patient tomorrow for physical therapy treatment as able/appropriate. Gabriela Ortiz, PT [facility] Pager [phone] linical Team - Camille Sandoval RN - 04/09/2021 2:36 AM CDT Pt unable to void, reports urge to void. Bladder scan performed, 500mLs. Hawk placed around 0030. are Planning - Camille Sandoval RN - 04/09/2021 2:35 AM CDT Problem: PHYSICAL COMFORT Goal: CLIENT SATISFACTION: PAIN MANAGEMENT Description: DEFINITION: Extent of positive perception of nursing care to relieve pain. 1=Not at all satisfied, 2=Somewhat satisfied, 3=Moderately satisfied, 4=Very satisfied, 5=Completely satisfied. Flowsheets (Taken 04/09/2021 0233) Initial Score: 4 Plan of care reviewed with: Patient Patient specific goal for the day: Patient will notify staff of increasing pain Patient Progress: Pt reports pain is primarily controlled with WAXER and positioning. Problem: NAUSEA Goal: NAUSEA AND VOMITING SEVERITY Description: DEFINITION: Severity of signs and symptoms of nausea, retching, and vomiting. 1 = Severe, 2 = Substantial, 3 = Moderate, 4 = Mild, 5 = None. Flowsheets (Taken 04/09/2021 0233) Initial Score: 4 Plan of care reviewed with: Patient Patient specific goal for the day: Patient will notify RN of nausea, utilize pharmaceutical and non-pharmaceutical methods of nausea control. Patient Progress: Pt notifies RN of nausea, utilizes environmental changes, cool washrag, and anti-emetic medication to reduce sensation of nausea. linical Team - Ivelisse Lloyd RN - 04/08/2021 7:34 PM CDT Patient drowsy and oriented x4, VSS on room air. Patient reported tolerable pain as 3-6/10 with restand 7/10 with movement, WAXER Dilaudid infusing and Patient reported adequate pain relief. Patient reported nausea throughout the shift, PRN Phenergan and scheduled Reglan administered, Patient reported adequate nausea relief with scheduled Reglan. Patient tolerated ice chips well. Patient reported passing minimal flatus. Patient ambulated with stand by assist, a walker and gait belt, gait steady. Patient voided small frequent amounts early in the shift, Patient was bladder scanned for 967mL and straight catheterized for 1000mL. Surgical pager [phone] notified of 4 hour recheck of 205mL and orders were obtained. are Planning - Ivelisse Lloyd RN - 04/08/2021 6:39 PM CDT Problem: PHYSICAL COMFORT Goal: CLIENT SATISFACTION: PAIN MANAGEMENT Description: DEFINITION: Extent of positive perception of nursing care to relieve pain. 1=Not at all satisfied, 2=Somewhat satisfied, 3=Moderately satisfied, 4=Very satisfied, 5=Completely satisfied. Flowsheets (Taken 04/08/20211836) Plan of care reviewed with: Patient Patient specific goal for the day: Patient will notify staff of increasing pain Patient specific goal for the stay: Patient will be satisfied with pain management plan Achieve goal for stay: By discharge Patient Progress: Patient reported pain as 4-6/10, tolerable pain in the abdomen. Patient's diet waschanged to NPO so WAXER Dilaudid was started, Patient has reported adequate pain relief with WAXER. Goalmet, will continue to monitor. Problem: NAUSEA Goal: NAUSEA AND VOMITING SEVERITY Description: DEFINITION: Severity of signs and symptoms of nausea, retching, and vomiting. 1 = Severe, 2 = Substantial, 3 = Moderate, 4 = Mild, 5 = None. Flowsheets (Taken 04/08/20211836) Initial Score: 2 Target Score: 5 Plan of care reviewed with: Patient Patient specific goal for the day: Patient will notify RN of nausea Patient specific goal for the stay: Patient will be free of nausea Achieve goal for stay: Within 24 hours Patient Progress: Patient reported nausea throughout the shift, PRN Phenergan administered and Patient reported slight relief. Scheduled Reglan administered following diet order change to NPO and Patient reported more relief. Patient states when she belches she gets acidic output in the back of her throat but no emesis. Patient ambulated x1 during the shift. Will continue to monitor. hysical Therapy - Gabriela Ortiz PT - 04/08/2021 3:01 PM CDT PT orders received and acknowledged. Attempted to see patient this afternoon for physical therapy evaluation. PT consulted with attending RN who was currently in patient's room. Will hold with PT evaluation for today and will attempt to see patient tomorrow morning for PT evaluation as able/appropriae. SEJAL Ortiz, PT [facility] Pager [phone] are Planning - Camille Sandoval RN - 04/08/2021 2:45 AM CDT Problem: PHYSICAL COMFORT Goal: CLIENT SATISFACTION: PAIN MANAGEMENT Description: DEFINITION: Extent of positive perception of nursing care to relieve pain. 1=Not at all satisfied, 2=Somewhat satisfied, 3=Moderately satisfied, 4=Very satisfied, 5=Completely satisfied. Flowsheets (Taken 04/08/2021 0244) Initial Score: 4 Plan of care reviewed with: Patient Patient specific goal for the day: Patient will notify staff of increasing pain Patient Progress: Pt reporting pain to staff appropriately. PRNs given when pt reports pain. linical Team - Alex Dai RN - 04/07/2021 7:32 PM CDT Pt VSS and Ox4. Pt arrived to [address] [place] [address] around 1809. A skin assessment was done by this nurse and [facility] PACU nurse. No skin issues were noted upon assessment. Pt resting mainly in bed thus far with LR at125 ml/hr. Will continue to monitor and assess as needed. perative Note - aSrah Joshua MD - 04/07/2021 5:58 PM CDT Images from the original note were not included. PATIENT NAME: Sabrina Singleton MR#: [id number] CSN: [id number] : 1945 SEX: F DATE OF PROCEDURE: 04/07/2021 PROCEDURES PERFORMED: 1. DaVinci Xi robotic-assisted laparoscopic liver biopsy 2. DaVinci Xi robotic-assisted laparoscopic gastrojejunostomy SURGEON: Sarah Joshua MD, PhD, MPH, FACS, FSSO MANAGER OF CHANGE: 1. Jayden Russo Jr DO 2. Ck Gaston RN INDICATIONS FOR PROCEDURE: Ms. Singleton is a pleasant 75 year old female with triple-positive stage IV breast cancer managed by Dr. Serna. She was recently admitted with nausea, vomiting, and abdominal discomfort. On 03/31/2021, a CT was performed which demonstrated long segment circumferential thickening of the proximal duodenum as well as evidence of cholelithiasis and hepatic cirrhosis. 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 Biopsies and showed no evidence of carcinoma, and prominent intraepithelial lymphocytes raised the possibility of celiac disease. An MRI and MRCP were also performed which demonstrated no significant intra-orextrahepatic biliary ductal dilatation with a 5-6 mm common bile duct, no choledocholithiasis, and no pancreas ductal dilatation. The thickened proximal duodenum appears to extend to the level of the ampulla and was suspected to encase the distal common bile duct and pancreatic duct. After reviewingclinical findings, imaging, pathology, and an understanding of the biology of her current metastaticbreast cancer, we decided to proceed with gastrojejunostomy rather than duodenal stent placement. Risks of stent migration, stent ingrowth, and need for stent revisions were discussed in respect to duodenal stenting. Risks of infection, anastomotic leak, bleeding, and venous thromboembolism were also discussed in detail and she agreed to proceed with gastrojejunostomy. All her questions were answered to her satisfaction. PREOPERATIVE DIAGNOSES: 1. Stage IV triple-positive breast cancer 2. Duodenal obstruction, prior biopsies benign POSTOPERATIVE DIAGNOSES: Same. ANESTHESIA: General SPECIMENS: 1. Segment III liver biopsy (fibrotic ligament) 2. Perigastric nodules (greater curvature) ESTIMATED BLOOD LOSS: 25 mL. DRAINS: None FINDINGS: Some suggestion of inflammation towards the duodenum was noted. We biopsied a fibrotic nodular ligamentous aspect adjacent to Segment III and frozen did not show evidence of malignancy. 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 COMPLICATIONS: None. POSTOPERATIVE CONDITION: Stable. OPERATIVE SUMMARY: The patient was brought to the operating room and placed supine on the operating room table. After being correctly identified per the chart and anesthesia team, general anesthesia was established. The abdomen was prepped and draped in a standard fashion. A time out protocol was completed. We began with a 12 mm infraumbilical incision through a prior laparoscopic port site scar. This wasextended through subcutaneous tissues and the umbilical stalk was elevated. The fascia was incised along the linea alba and pneumoperitoneum was established using a Cole technique. Under direct visu alization we then proceeded with placement of a right medial 8mm robotic port (later upsized to 12 mm), a left medial 12 mm robotic port, and a left lateral 8 mm robotic port. In addition, we placed in the right lower quadrant an 8 mm AirSeal port for the customer marketing assistant. We proceeded with general inspection and noted findings including macronodular cirrhosis of the liver as well as inflammatory changes in the vicinity of the pylorus, as well as a nodular ligamentous band between segment 3 and segment 4. There were also a few small tiny nodules noted on the anterior gastric wall. We began with elevation of the greater omentum and transverse colon and identification of the ligament of Treitz. We proceeded with elevation of the small intestine towards the upper abdomen. We then placed the patient in 10 reverse Trendelenburg and proceeded with docking the robot.We used the force bipolar and or stapler in arm 1, the camera in arm 2, the needle mail truck driver and/or wendi in arm 3, and the fenestrated tip up grasper in arm 4. Once we completed docking, the small bowel had moved in position, so we went again to retrieve and identify the ligament of Treitz, and then positioned a loop of bowel approximately 40-50 cm distal towards the stomach. This loop could easily reach the stomach and was secured in position using arm 4.We then proceeded with planned biopsies of hepatic segment 3 at the ligamentous portion using the robotic wendi. This was submitted for frozen section and had no evidence of malignancy. We also submitted a couple small perigastric nodular fragments and the pathologist did not feel that he could section this, so it was submitted for permanent. Next, we proceeded with placement of 2 3-0 Vicryl stay sutures to bring the anterior gastric body wall in opposition with the antimesenteric aspect of the jejunal loop. Once these sutures were in place, we were able to elevate the site of the planned anastomosis using arm 4. We then made two side byside enterotomies using the wendi with electrocautery on the anterior wall of the stomach and the jejunum. While we initially planned to use arm 3 for the stapler, we had a better angle via arm 1, so we proceeded with converting the 8 mm port to a 12 mm port to do so. We then introduced the Sureform blue 60 mm stapler, introduced this into the aligned enterotomies and performed a side to side anastomosis. Hemostasis appeared excellent. We then proceeded with closure of the common enterotomy using a running 3-0 V-lock suture. We started with a Mary Lou suture and then imbricated back to the original apex using a running Lembert suture. After completion of the anastomosis, we asked the anesthesiologist to introduce air into the stomachvia the NG tube. This appeared to distend the stomach and jejunum well. We then used a interrupted3-0 Vicryl horizontal mattress suture to place a suture securing the gastrojejunal anastomotic angleas a crotch stitch. We then undocked the robot and proceeded with closing the 12 mm port sites using 0 Vicryl with a Troy Vikas needle. We then withdrew pneumoperitoneum and the fascia of the umbilical port was closed using a mevsjj-wp-orzut 0 Vicryl on a UR 6 needle. Skin was then closed using 4-0 Vicryl followed by Dermabond. All sponge and needle counts were correct. The patient tolerated the procedure well without complications. She was weaned off anesthesia, extubated and transferred to the recovery room in stable condition. Dr. Joshua was present and directed orperformed all critical parts of the procedure. upplemental Progress Note - Yousuf Franklin MD - 04/07/2021 5:51 PM CDT POST OPERATIVE CHECK Subjective No acute events post operatively. Patient still somnolent but rouses to voice and answers questions Pain well controlled No nausea/vomiting Denies CP or SOB NPO Has not amb'd yet Objective Vitals: Temp: 98 F (36.7 C) Pulse: 74 BP: 116/59 Resp: 16 SpO2: 96 % Producing >0.5 mL/hr of urine (intraop UOP 450 mL) Physical Exam: General: Patient still somnolent but rouses to voice and answers questions. No apparent distress. CV: RRR Pulm: Non labored respiration, CTAB, sats good on 2L Abdomen: soft, no distension, appropriately tender, dressings c/d/i Ext: No peripheral edema Assessment/Plan Sabrina Singleton is a 75yr female who is s/p Procedure(s): XI DAVINCI LAPAROSCOPIC GASTROJEJUNOSTOMY BYPASS - Wound Class: Clean on 04/07/21 - Stable after surgery - Continue current cares Gerry Franklin MD Surgery Resident PGY1 04/07/21 ostOp Progress Note - Dexter Russo Jr., MD - 04/07/2021 5:13 PM CDT Immediate Post-Operative / Post Procedure Progress Note Att. Phys: Fe Bowie R,* Pt. Type: Inpatient Operative Date: 04/07/2021 Surgeon: Surgeon(s) and Role: * Sarah Joshua MD - Primary * Dexter Russo Jr., MD - Resident - Assisting Pressurizer: County Tax Assessor : Rancho Khan RN; Adamaris Lakhani RN Relief County Tax Assessor : Dee To RN Relief Scrub : Tiesha Flynn, Scrub Person : Faiza Mayorga CST; Andreina Quiles ST Instrument/Control Technician: Ck Gaston RN Pre-Operative Diagnosis: Pre-Op Diagnosis Codes: * Bowel obstruction (HCC) [K56.609] Post-Operative Diagnosis: Same Anesthesia Type: general Operative Procedure: Procedure(s): XI DAVINCI LAPAROSCOPIC GASTROJEJUNOSTOMY BYPASS - Wound Class: Clean ID Type Source Tests Collected by Time A : segment 3 liver study Tissue Liver TISSUE EXAM Sarah Joshua MD 04/07/2021 9452 B : segment 3 liver study Tissue Liver TISSUE EXAM Sarah Joshua MD 04/07/2021 1986 C : larry-gastric/ greater curvature nodule Tissue Stomach TISSUE EXAM Sarah Joshua MD 04/07/2021 1429 D : larry-gastric/ greater curvature nodule Tissue Stomach TISSUE EXAM Sarah Joshua MD 04/07/2021 1430 no implants used for procedure Fluids Given: 1100 cc cyrstalloid. 500 cc albumin Urine Output: 450 cc Estimated Blood Loss: 25 mL Drains: none Findings: Successful gastrojejunostomy. Abnormal appearing liver with fibrosis and plaques. Chronicappearing scaring around the duodenum. Biopsies taken of plaques on the liver and nodules on the stomach. Complications: none Postoperative Condition: stable [facility] Surgery Resident Pager [phone] 04/07/21 are Planning - Nely Steen RN - 04/07/2021 3:06 PM CDT Problem: PHYSICAL COMFORT Goal: CLIENT SATISFACTION: PAIN MANAGEMENT Description: DEFINITION: Extent of positive perception of nursing care to relieve pain. 1=Not at all satisfied, 2=Somewhat satisfied, 3=Moderately satisfied, 4=Very satisfied, 5=Completely satisfied. Flowsheets (Taken 04/07/2021 1505) Initial Score: 4 Plan of care reviewed with: Patient Patient specific goal for the day: Patient will notify staff of increasing pain Patient Progress: Pt has reported mild pain throughout shift, denying need for interventions. PRN pain medications available. See MAR. Down in OR for GJ bypass. will continue to monitor. ase Mgmt - Sage Corbin LSW - 04/07/2021 2:25 PM CDT CASE MANAGEMENT / SOCIAL SERVICE TRANSITION PLAN - PROGRESS NOTE PLAN: Will Continue to Follow for Support and Progression Towards Final Transition Plan BARRIERS TO TRANSITION: Awaiting Therapy Recommendations Medical barriers: Medical Stability -- Plan for surgery - gastrojejunal bypass surgery today. DOES ACCEPTING FACILITY REQUIRE COVID TESTING BEFORE DISCHARGE: N/A COMMENTS / PATIENT AND FAMILY RESPONSE TO PLAN: CM reviewed patient's electronic medical record and received update from manager lpn. CM attempted to visit patient; patient absent from room. Patient would like to discharge to the [facility]. PT/OT orders placed; pending recommendations. Patient had no questions or concerns regarding discharge planning at this time. There were no further case management needs on this date. CM will continue to follow. IS PATIENT'S ADMISSION ASSOCIATED WITH TIA, ISCHEMIC, OR HEMORRHAGIC STROKE?: No PATIENT / SUBSTITUTE DECISION MAKER GOAL UPON TRANSITION: First Choice: Swing Bed Second Choice: Home Health: Bath Aid, Home Safety Evaluation, Nurse, Occupational Therapy and Physical Therapy Home: Family/Friend Support ANTICIPATED NEEDS UPON TRANSITION: Home Health: Bath Aid, Home Safety Evaluation, Nurse, Occupational Therapy and Physical Therapy Swing Bed Transitional Care RESOURCE(S) PROVIDED: Discharge Planning ANTICIPATED MODE OF TRANSPORT UPON TRANSITION: Family Car vs Arranged transportation ANTICIPATED MODE OF TRANSPORT TO AND FROM FOLLOW UP APPOINTMENTS: Family Car Friend car VERIFIED CORRECT PHARMACY IS ENTERED FOR DISCHARGE: No - Will verify upon discharge TRANSITION ROUNDING COMPLETED WITH THE FOLLOWING: Patient / family Platform Operations Director Attending MD Yap RN Discussed in person SIGNED: MICHELE Mims Store Detective PH. [phone] hysical Therapy - Ayla Zhao PT - 04/07/2021 12:33 PM CDT PT orders received. Patient to have surgery today. Will evaluate physical function post-op. Ayla Zhao PT [facility] pager [phone] utrition Team - Katya Winter RD, LD - 04/07/2021 9:52 AM CDT Nutrition Therapy Follow Up - Nutrition Support Hospital Day: 7 days Active Problems: Acute SBO at duodenal level Electrolyte imbalance, hypokalemia - corrected PMH: breast cancer with liver and bone metastasis, HTN, CHF, COPD Recommendations: 1) Continue advancement of TPN as tolerated: ? Goal TPN to meet needs 1750 total kcal, 115 gm protein, 325 lipid kcal, 965 CHO kcal/day ? Recommend continuing TPN until pt is advanced to Regular textures, given that patient is lactose intolerant and would have limited options on liquid diets. 2) Advance diet as medically appropriate NUTRITION ASSESSMENT Pt remains NPO on TPN for nutrition. Has been meeting her estimated nutrition needs the last three days. Plan for surgical intervention today, gastrojejunal bypass. Will continue to follow. Anthropometrics: Height: 170.2 cm (5' 7") Admission Wt: Weight: 70.1 kg (154 lb 8 oz) as of 03/31/2021 per bed scale Most Recent Wt: Weight: 71.5 kg (157 lb 9.6 oz) (04/03/21 1328) per bed scale Lowest Weight Since Admit: 70.1 kg Weight Change: +3 lb since admission BMI: Body mass index is 24.68 kg/m. IBW: 61 kg %IBW: 115% (based on admit weight) Usual Body Weight: (135-140 lb) Unintentional Weight Loss: 8 lb (4.9%) weight loss in the last month - borderline significant. Had been stable x 1 year prior. Vitals WEIGHT WEIGHT IN KG 03/31/2021 154 lb 8 oz 70.081 kg 03/24/2021 159 lb 9.6 oz 72.394 kg 03/03/2021 162 lb 1.6 oz 73.528 kg 01/13/2021 165 lb 3.2 oz 74.934 kg 04/15/2020 152 lb 8 oz 69.174 kg Estimated Needs: For TPN 1750-1900kcal/day(25-27 kcal/kgUsing: Admission Weight) 92-122gm protein(1.5-2gm/kg Using:[place] Body Weight) Fluids per MD Estimated average intake over the last 2 days: 1760 kcal and 115 gm protein, which meets: 100 % of estimated kcal needs and 100 % of estimated protein needs. Intake Records: Intake Prior to Admit: Adequate Patient voices a good appetite and normal intake until 1 day TOOLMAKER GRADE THREE. She voices trying to eat small portions throughout the day and would have emesis with anything she tried to eat. She then came into hospital the next day. Patient normally eats 3 meals daily with snacks. 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 Breakfast: oatmeal (brown sugar and raisins, or applesauce and cinnamon), or two slices of whole grain toast with jelly Lunch (largest meal): meat with 2-3 types of vegetables or salad Supper: Typically same as lunch only smaller portion - meat with potatoes and vegetable Snacks: snacks a couple times a day on fruit, or cottage cheese Current Intake: Adequate x 3 days. Had been sub-optimal for 3 days prior d/t slowly increasing TPN. Current Diet: NPO Parenteral Nutrition: 115 gm protein, 700 kcal/day CHO, and 600 kcal/day Lipids Total Nutrition From TPN: 1760 kcals (100% of estimated needs) 115 gm pro (100% of estimated needs) Multivitamins and trace elements given daily Date TPN Started: 04/02 Reason TPN Started: Inability to take sufficient PO, NPO Physical Assessment: Edema: (per chief optometry service at 0020 today) RUE Edema 1 LLE Edema Trace RLE Edema Trace GI Assessment: Abdominal exam: Flat, Non-tender and Soft with Hypoactive bowel sounds, per chief optometry service at 0020 today. Stool Frequency: 0-2x/day over the last 3 days Wounds/Pressure Points: WDL (per chief optometry service at 0020 today) Functional Status: PT Following OT Following Nutrition Focused Physical Exam: Completed by RD on 04/04/2021 Below the Eye (fat): Slightly Bulged Fat Pads (Within Defined Limits) Jainism (muscle): Able to see/feel well-defined muscle (Within defined limits) Buccal (fat): Full, round/filled out cheeks (Within defined limits) Clavicle (muscle): Some protrusion of bone (mild-moderate) (Mild) Shoulder (muscle)/Deltoid muscle: Rounded curves at arm/shoulder/neck (Within defined limits) Triceps/Biceps (fat): Ample fat tissue obvious between folds of skin (Within defined limits) Hand/Interosseous (muscle): Flat to bulging muscle (Within defined limits) Thigh (muscle): Well-rounded, no bone prominence (Within defined limits) Calf (muscle): Well-developed bulb of muscle (Within defined limits) Nutritionally-Relevant Medications, Vitamins and Minerals: Dilaudid, TPN Nutritionally-Relevant Biochemical Data: (04/07/2021) Glucose 132 H BUN 23 H Albumin 3.4 L Allergies/Food Intolerance: Sabrina is allergic to penicillin, tetracyclines, arimidex [anastrozole], aspirin, ciprofloxacin, influenza vaccines, lactose [milk/dairy products], macrodantin [nitrofurantoin], singulair [montelukast sodium], and sulfa drugs. Culturally Sabianist Needs: no INTERVENTIONS Provided TPN recommendations MONITORING/EVALUATION Monitor diet advancement Monitor NPO duration Monitor TPN, tolerance and labs with regular f/u assessments. Adjust TPN as needed. Nutrition Therapy will reassess every 1-[address], LRD [facility] Pager # [phone] Ext [phone] Occupational Therapy - Debbie Perkins OTR/Rod - 04/07/2021 9:37 AM CDT Occupational Therapy Acute Care Evaluation Note Impression/Recommendations Recommendations pending pt's status post-procedure (scheduled for later this date). If pt were to d/c, would recommend home with initial assistance from family PRN. However, pt has abdominal procedure scheduled for later this AM, which may impact pt status. Per chart, pt hopeful to d/c to swingbed. Patient is presenting with impairments including decreased independence with eating and feeding (NPO status), and decreased activity tolerance d/t placement of NG tube. Patient is demonstrating ability tocomplete observed ADLs and functional transfers with CGA/SBA x1. Patient will continue to benefit from skilled OT in order to address the above deficits to increase functional independence in ADLs, IADLs, and transfers/mobility post-procedure. Admitting Diagnosis: ICD-10-CM 1. Nausea R11.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 Gastric outlet obstruction K31.1 TISSUE EXAM History of Present Illness: Refer to H&P for details Past Medical History: Past Medical History: Diagnosis Date Breast cancer (HCC) CHF (congestive heart failure) (HCC) COPD (chronic obstructive pulmonary disease) (HCC) Degenerative joint disease of right hip Hyperlipidemia Hypertension Pleural effusion on right Activity Level: Progressive mobility bundle Precautions: Fall Risk Infection Control: Medication Risk Hazard: high and Standard Precautions Patient History Social/Home Environment: Patient lives: alone House: House Steps to enter: No (pt states it is an older home with "stairs all over," however pt only uses main level with no steps to enter) Home Environment: Bed/Bath on main level: Yes Bathroom Setup: walk in shower with curtain Prior Level of Function Independent with: all ADLs and IADLs Assistance needed with: pt reports being independent and living alone at baseline Adaptive Equipment Available: toilet riser without arms, shower chair, grab bars tub/shower, grab bars toilet, sock aid, long-handled shoe horn, front-wheeled walker and 4 wheeled walker Present for Eval: Patient Objective Activities of Daily Living: Feeding: not assessed, pt is NPO Grooming: contact guard assistance to wash hands standing at the sink Upper Extremity Dressing: minimal assistance to tie gown in the back (gown was coming loose when ptsat EOB) Lower Extremity Dressing: contact guard assistance and set-up to use sock aid and phone screener to columba/doff R sock, pt donned/doffed L sock without AE. Pt reports having "sciatic nerve" pain in R LE at baseline, which limits ROM Bathing: not assessed Toileting: contact guard assistance/SBA for hygiene and clothing management Transfers: Bed: standby assistance supine <> sitting EOB with HOB slightly elevated, no bed rail use Chair: to be assessed Toilet: contact guard assistance/SBA Tub/Shower: not assessed Mobility/Ambulation: contact guard assistance with FWW from home to ambulate EOB > bathroom >standing at sink > EOB Comments: Pt to be taken to procedure later this AM, so Pt returned to bed at end of session. To continue to assess transfers post-operatively At end of session: Patient resting in bed, Bed in lowest position, Call light and tray table within reach, Encouraged patient to use call light for assistance, Gripper socks donned for OOB activity andGait belt donned Pain: pt denied pain outside of baseline during session, pain not rated Vitals: Pt on RA without signs of shortness of breath during OT. Upper Extremity Function: Range of Motion: Right:limited Left: within functional limits Strength: Right: within functional limits Left: within functional limits Endurance: within functional limits Coordination: intact Sensation: intact Edema: Yes- pt reports having edema in R UE since having breast cancer approximately 3 years ago Comments: Pt reports edema in R UE often limits elbow and shoulder flexion, observed mild limits to ROM in session Cognition: Orientation: alert. Oriented to: Person, place, time, situation Attention: intact Following Directions: intact Safety Awareness: intact Impulsivity: None Comments: Pt following 1 and 2-step commands throughout session, answering therapist questions appropriately. Visual/Perception: Denies acute changes in vision Glasses: Yes- pt has prescription trifocals, not worn in session Interdisciplinary Communication: Nurse , consented to evaluation this AM Education Education/Training provided: Role of OT, plan of care, ADLs, transfers/mobility, safety, AE needs,d/c recommendations Learners: Patient Readiness: accepting Method of Training: verbal Response: Verbalizes understanding; Will benefit from continued reinforcement: yes Adaptive Equipment Recommendations Adaptive Equipment Recommended: OT will continue to assess AE needs and will update as necessary Plan to obtain adaptive equipment: To further assess. Assessment/Plan Assessment: Patient demonstrates decreased independence with ADL/IADL tasks and decreased independence with functional mobility Patient showing a decrease in ADL/transfer performance and will benefit from continued OT. Plan: Patient to be seen 3-5x/week to work toward goals Treatment plan will consist of Saturday thru Saturday sessions Goals Patient/Family Stated Goal for Session: agreeable to therapy evaluation Short Term Goals: Patient will tolerate 15-30 minutes U/E exercise to further increase independence with ADL/IADLs Patient will complete grooming task safely standing at the sink withSBAusing adaptive equipment as needed. Patient will complete LB dressing safely withSBAusing adaptive equipment as needed. Patient will complete toileting safely withSBAusing adaptive equipment as needed. Patient will complete functional transfers safely withSBAusing adaptive equipment as needed. Patient will further participate with cognitive assessment to increase safety with functional tasks. Patient will have AE in place to increase safety with ADLs by discharge Treatment Provided Pt given training on use of hospital AE (sock aid and phone screener) to columba/doff R gripper sock in session. Charges Treatment/Minutes: Today's Evaluation/Treatment Evaluation Self care/home management: 8 minutes Total for time-based codes: 8 minutes Total treatment time: 27 minutes Evaluation Complexity PMH/Comorbidities that affect Occupational Performance: See PMHx Occupational Profile/Medical and Therapy History: LOW - Brief history relating to presenting problem Patient Assessment: LOW - 1-3 performance deficits relating to physical, cognitive, psychosocial limitations/restrictions Clinical Decision Making: LOW - Low complexity, limited amount of treatment options, no assessment modification, no comorbidities Evaluation Complexity: Low Therapist [facility] Pager Number: [phone] are Planning - Jenny Ferro RN - 04/06/2021 10:20 PM CDT Problem: PHYSICAL COMFORT Goal: CLIENT SATISFACTION: PAIN MANAGEMENT Description: DEFINITION: Extent of positive perception of nursing care to relieve pain. 1=Not at all satisfied, 2=Somewhat satisfied, 3=Moderately satisfied, 4=Very satisfied, 5=Completely satisfied. Outcome: NOC Rating 3 Flowsheets (Taken 04/06/2021 2220) Plan of care reviewed with: Patient Patient specific goal for the day: Patient will notify staff of increasing pain Patient specific goal for the stay: Patient will be satisfied with pain management plan Achieve goal for stay: By discharge Patient Progress: Pt has reported mild pain throughout shift, denying need for interventions. appears comfortable, will continue to monitor. Clinical Team - Jenny Ferro RN - 04/06/2021 5:08 PM CDT Received VORB from MD Bowie to discontinue heparin due to procedure in the morning. Will carry out. are Ishmael - Radha Marinelli RN - 04/06/2021 2:29 PM CDT Problem: PHYSICAL COMFORT Goal: CLIENT SATISFACTION: PAIN MANAGEMENT Description: DEFINITION: Extent of positive perception of nursing care to relieve pain. 1=Not at all satisfied, 2=Somewhat satisfied, 3=Moderately satisfied, 4=Very satisfied, 5=Completely satisfied. Outcome: NOC Rating 5 Flowsheets (Taken 04/06/2021 2613) Plan of care reviewed with: Patient Patient specific goal for the day: Patient will notify staff of increasing pain Patient specific goal for the stay: Patient will be satisfied with pain management plan Achieve goal for stay: By discharge Patient Progress: Pt has reported mild pain throughout shift, denying need for interventions. appears comfortable, will continue to monitor. ase Mgmt - Sage Corbin LSW - 04/06/2021 1:46 PM CDT CASE MANAGEMENT / SOCIAL SERVICE TRANSITION PLAN - PROGRESS NOTE PLAN: Will Continue to Follow for Support and Progression Towards Final Transition Plan BARRIERS TO TRANSITION: Awaiting Therapy Recommendations Medical barriers: Medical Stability -- Plan for surgery - gastrojejunal bypass on Saturday 04/07. DOES ACCEPTING FACILITY REQUIRE COVID TESTING BEFORE DISCHARGE: N/A COMMENTS / PATIENT AND FAMILY RESPONSE TO PLAN: CM reviewed patient's electronic medical record and received update from manager lpn. CM met with patient at bedside. Patient shared that she does not feel comfortable discharging home at this time. Patient would like to discharge to the . PT/OT orders placed; pending recommendations. Patient had no further questions or concerns regarding discharge planning at this time. There were no further case management needs on this date. CM will continue to follow. IS PATIENT'S ADMISSION ASSOCIATED WITH TIA, ISCHEMIC, OR HEMORRHAGIC STROKE?: No PATIENT / SUBSTITUTE DECISION MAKER GOAL UPON TRANSITION: First Choice: Swing Bed Second Choice: Home Health: Bath Aid, Home Safety Evaluation, Nurse, Occupational Therapy and Physical Therapy Home: Family/Friend Support ANTICIPATED NEEDS UPON TRANSITION: Home Health: Bath Aid, Home Safety Evaluation, Nurse, Occupational Therapy and Physical Therapy Swing Bed Transitional Care RESOURCE(S) PROVIDED: Discharge Planning ANTICIPATED MODE OF TRANSPORT UPON TRANSITION: Family Car vs Arranged transportation ANTICIPATED MODE OF TRANSPORT TO AND FROM FOLLOW UP APPOINTMENTS: Family Car Friend car VERIFIED CORRECT PHARMACY IS ENTERED FOR DISCHARGE: No - Will verify upon discharge TRANSITION ROUNDING COMPLETED WITH THE FOLLOWING: Patient / family Platform Operations Director Attending MD Yap RN Discussed in person SIGNED: Sage Corbin [facility] Store Detective PH. [phone] linical Team - Ivelisse Skaggs RN - 04/06/2021 12:[address] Le from anesthesiology stopped at nurses station to deliver anesthesia consent for surgery tomorrow. Received VORB to place order for type and screen. Will carry out. Piper Quiñones - Traci Anders RN - 04/06/2021 2:55 AM CDT Problem: PHYSICAL COMFORT Goal: CLIENT SATISFACTION: PAIN MANAGEMENT Description: DEFINITION: Extent of positive perception of nursing care to relieve pain. 1=Not at all satisfied, 2=Somewhat satisfied, 3=Moderately satisfied, 4=Very satisfied, 5=Completely satisfied. Flowsheets (Taken 04/06/2021 6915) Patient specific goal for the day: Patient will notify staff of increasing pain Patient Progress: Patient complained of pain 04/01 this shift. PRN Dilaudid given with relief (see MAR). Will continue to monitor. STETCare Planning - Jenny Ferro RN - 04/05/2021 10:47 PM CDT Problem: PHYSICAL COMFORT Goal: CLIENT SATISFACTION: PAIN MANAGEMENT Description: DEFINITION: Extent of positive perception of nursing care to relieve pain. 1=Not at all satisfied, 2=Somewhat satisfied, 3=Moderately satisfied, 4=Very satisfied, 5=Completely satisfied. Outcome: NOC Rating 3 Flowsheets (Taken 04/05/2021 5257) Plan of care reviewed with: Patient Patient specific goal for the day: Patient will notify staff of increasing pain Patient specific goal for the stay: Patient will be satisfied with pain management plan Achieve goal for stay: By discharge Patient Progress: Patient denied pain throughout the shift. Resting comfortably in bed this shift. PRN pain medications available if needed (See MAR). NG tube remains in place to low intermittent suction. Will continue to monitor. ase Tima - Sage Corbin LSW - 04/05/2021 2:05 PM CDT CASE MANAGEMENT / SOCIAL SERVICE TRANSITION PLAN - PROGRESS NOTE PLAN: Will Continue to Follow for Support and Progression Towards Final Transition Plan BARRIERS TO TRANSITION: Awaiting Collateral Information Discharge Needs to be Determined Medical barriers: Medical Stability -- Plan for surgery - gastrojejunal bypass on Saturday 04/07. DOES ACCEPTING FACILITY REQUIRE COVID TESTING BEFORE DISCHARGE: N/A COMMENTS / PATIENT AND FAMILY RESPONSE TO PLAN: CM reviewed patient's electronic medical record and received update from manager lpn. CM met with patient at bedside. Patient and CM discussed discharge planning. Patient shared that she would like to discharge to the . Patient does not feel comfortable returning home at this time. CM discussed patient's discharge options with attending MD. Attending MD will plan to put PT/OT consult in for patient. Patient had no further questions or concerns regarding discharge planning at this time. There were no further case management needs on this date. CM will continue to follow. IS PATIENT'S ADMISSION ASSOCIATED WITH TIA, ISCHEMIC, OR HEMORRHAGIC STROKE?: No PATIENT / SUBSTITUTE DECISION MAKER GOAL UPON TRANSITION: First Choice: Swing Bed Second Choice: Home Health: Bath Aid, Home Safety Evaluation, Nurse, Occupational Therapy and Physical Therapy Home: Family/Friend Support ANTICIPATED NEEDS UPON TRANSITION: Home Health: Bath Aid, Home Safety Evaluation, Nurse, Occupational Therapy and Physical Therapy Swing Bed Transitional Care RESOURCE(S) PROVIDED: nothing needed at this time ANTICIPATED MODE OF TRANSPORT UPON TRANSITION: Family Car vs Arranged transportation ANTICIPATED MODE OF TRANSPORT TO AND FROM FOLLOW UP APPOINTMENTS: Family Car Friend car VERIFIED CORRECT PHARMACY IS ENTERED FOR DISCHARGE: No - Will verify upon discharge TRANSITION ROUNDING COMPLETED WITH THE FOLLOWING: Patient / family Platform Operations Director Attending manager lpn Discussed in person SIGNED: MICHELE Mims Store Detective PH. [phone] are Planning - Nely Steen RN - 04/05/2021 12:36 PM CDT Problem: PHYSICAL COMFORT Goal: CLIENT SATISFACTION: PAIN MANAGEMENT Description: DEFINITION: Extent of positive perception of nursing care to relieve pain. 1=Not at all satisfied, 2=Somewhat satisfied, 3=Moderately satisfied, 4=Very satisfied, 5=Completely satisfied. Flowsheets (Taken 04/05/2021 9099) Initial Score: 3 Plan of care reviewed with: Patient Patient specific goal for the day: Patient will notify staff of increasing pain Patient Progress: Patient denied pain throughout the shift. Resting comfortably in bed and had a walk in the gomez. PRN pain medications available if needed (See MAR). Will continue to monitor. Nina Vazquez RN - 04/05/2021 5:13 AM CDT Problem: PHYSICAL COMFORT Goal: CLIENT SATISFACTION: PAIN MANAGEMENT Description: DEFINITION: Extent of positive perception of nursing care to relieve pain. 1=Not at all satisfied, 2=Somewhat satisfied, 3=Moderately satisfied, 4=Very satisfied, 5=Completely satisfied. 04/05/2021 05 by Nina Cornell RN Outcome: NOC Rating 4 Flowsheets (Taken 04/05/2021 0511) Plan of care reviewed with: Patient Patient specific goal for the day: Patient will notify staff of increasing pain Patient specific goal for the stay: Patient will be satisfied with pain management plan Achieve goal for stay: By discharge Patient Progress: Patient denied pain throughout the shift. Will continue to monitor. 04/05/2021 043 by Nina Cornell RN Outcome: NOC Rating 3 Flowsheets (Taken 04/05/2021 0435) Plan of care reviewed with: Patient Patient specific goal for the day: Patient will notify staff of increasing pain Patient specific goal for the stay: Patient will be satisfied with pain management plan Achieve goal for stay: By discharge Alicia Garcia RN - 04/04/2021 10:26 PM CDT Problem: PHYSICAL COMFORT Goal: CLIENT SATISFACTION: PAIN MANAGEMENT Description: DEFINITION: Extent of positive perception of nursing care to relieve pain. 1=Not at all satisfied, 2=Somewhat satisfied, 3=Moderately satisfied, 4=Very satisfied, 5=Completely satisfied. Outcome: NOC Rating 5 Flowsheets (Taken 04/04/20215) Plan of care reviewed with: Patient Patient specific goal for the day: Patient will notify staff for S/Sx of pain Patient Progress: Pt denies pain, will monitor. Clinical Team - Ange Robles RN - 04/04/2021 1:19 PM CDT I have read and validate the accuracy of the student nurse's documentation for Sabrina Singleton for 04/04/2021. are Planning - Steph Pacheco, Nurse Director Medical Affairs - 04/04/2021 1:17 PM CDT Problem: PHYSICAL COMFORT Goal: CLIENT SATISFACTION: PAIN MANAGEMENT Description: DEFINITION: Extent of positive perception of nursing care to relieve pain. 1=Not at all satisfied, 2=Somewhat satisfied, 3=Moderately satisfied, 4=Very satisfied, 5=Completely satisfied. Flowsheets (Taken 04/04/2021 1315) Plan of care reviewed with: Patient Patient specific goal for the day: Patient will notify staff for S/Sx of pain Patient specific goal for the stay: pain will be managed with PRN medications Achieve goal for stay: By discharge Patient Progress: Patient rates pain 4/10 primarily to abdomen, no pain meds needed. ase Mgmt - Corinne Jackson RN - 04/04/2021 12:30 PM CDT CASE MANAGEMENT / SOCIAL SERVICE TRANSITION PLAN - PROGRESS NOTE PLAN: Will Continue to Follow for Support and Progression Towards Final Transition Plan BARRIERS TO TRANSITION: Awaiting Collateral Information Discharge Needs to be Determined Medical barriers:See below TPN continues day 3 Surgical Oncology- plan for surgical management on malignant SBO on Saturday 04/07 (gastrojeujunal bypass) IV Electrolyte replacement- potassium- 3.3 NGT to LIS DOES ACCEPTING FACILITY REQUIRE COVID TESTING BEFORE DISCHARGE: Other: TBD COMMENTS / PATIENT AND FAMILY RESPONSE TO PLAN: EMR reviewed and plan of care discussed with manager lpn's- Marcie. Patient transferred from [facility] on 7/12. She has metastatic breast cancer and follows with Dr. Serna. Admitted for abdominal discomfort, nausea, and vomiting. Plan for surgery- gastrojejunal bypass on Saturday 04/07. Patient has NGT in place to LIS, NPO, and receiving TPN. Visited with Sabrina at bedside. Plant Etiologist introduced self as Platform Operations Director following. Patient confirmedthat she lives alone in own home in [place], [place]. She does have family that lives in [place]. Patient does have Meals on Wheels and her [facility] sort worker- Trina assists with grocery shopping and errands. Patient stated she is interested in possibly transitioning to Swing Bed at [facility] upon discharge. Will need PT/OT evaluation. Patient did not have any other questions for CM at this time. CM continues to follow for support and discharge/transition planning needs. IS PATIENT'S ADMISSION ASSOCIATED WITH TIA, ISCHEMIC, OR HEMORRHAGIC STROKE?: No PATIENT / SUBSTITUTE DECISION MAKER GOAL UPON TRANSITION: First Choice: Swing Bed Second Choice: Home Health: Bath Aid, Home Safety Evaluation, Nurse, Occupational Therapy and Physical Therapy Home: Family/Friend Support and Non-nursing Services ANTICIPATED NEEDS UPON TRANSITION: Home Health: Bath Aid, Home Safety Evaluation, Nurse, Occupational Therapy and Physical Therapy Home: Family/Friend Support and Non-nursing Services Swing Bed Transitional Care RESOURCE(S) PROVIDED: Placement ANTICIPATED MODE OF TRANSPORT UPON TRANSITION: Family Car *May need hired transportation set up ANTICIPATED MODE OF TRANSPORT TO AND FROM FOLLOW UP APPOINTMENTS: Family Car Friend car VERIFIED CORRECT PHARMACY IS ENTERED FOR DISCHARGE: No Will verify upon discharge TRANSITION ROUNDING COMPLETED WITH THE FOLLOWING: Patient / family Platform Operations Director Attending MD manager lpn Discussed in person Discussed via telephone SIGNED: NICK Alamo, RN, [facility] Hematology/Oncology Platform Operations Director Alpha Pager* [phone] Nutrition Team - Katya Winter RD, LD - 04/04/2021 10:31 AM CDT Nutrition Therapy Follow Up - Nutrition Support Hospital Day: 4 days Active Problems: SBO at duodenal level Anemia d/t cancer PMH: breast cancer with liver and bone metastasis, HTN, CHF, COPD Recommendations: 1) Continue advancement of TPN as tolerated: Goal TPN to meet needs 1750 total kcal, 115 gm protein, 325 lipid kcal, 965 CHO kcal/day Recommend continuing TPN until pt is advanced to Regular textures, given that patient is lactose intolerant and would have limited options on liquid diets. 2) Advance diet as medically appropriate NUTRITION ASSESSMENT Pt continues to be NPO with NG tube to suction. Is on TPN for nutrition. TPN advanced today, plan toadvance to goal slowly (1760 kcal, 115 gm protein per original pharmacy note). Pt seemed to be eating adequately TOOLMAKER GRADE THREE per pt recall. Slight weight loss of 8 lb in the last month - borderline significant, though no significant muscle/fat losses seen with NFPE. Pt may be at risk formalnutrition, though does not meet ASPEN criteria at this time. Anthropometrics: Height: 170.2 cm (5' 7") Admission Wt: Weight: 70.1 kg (154 lb 8 oz) as of 03/31/2021 per bed scale Most Recent Wt: Weight: 71.5 kg (157 lb 9.6 oz) (04/03/21 1328) per bed scale Lowest Weight Since Admit: 70.1 kg Weight Change: +3 lb since admission BMI: Body mass index is 24.68 kg/m. IBW: 61 kg %IBW: 115% (based on admit weight) Usual Body Weight: (135-140 lb) Unintentional Weight Loss: 8 lb (4.9%) weight loss in the last month - borderline significant. Had been stable x 1 year prior. Vitals WEIGHT WEIGHT IN KG 03/31/2021 154 lb 8 oz 70.081 kg 03/24/2021 159 lb 9.6 oz 72.394 kg 03/03/2021 162 lb 1.6 oz 73.528 kg 01/13/2021 165 lb 3.2 oz 74.934 kg 04/15/2020 152 lb 8 oz 69.174 kg Estimated Needs: For TPN 7083-7711 kcal/day (25-27 kcal/kg Using: Admission Weight) 92-122 gm protein (1.5-2 gm/kg Using:D[place]monds Body Weight) Fluids per MD Estimated average intake over the last 2 days: 1110 kcal and 115 gm protein, which meets: 65 % of estimated kcal needs and 100 % of estimated protein needs. Intake Records: Intake Prior to Admit: Adequate Patient voices a good appetite and normal intake until 1 day TOOLMAKER GRADE THREE. She voices trying to eat small portions throughout the day and would have emesis with anything she tried to eat. She then came into hospital the next day. Patient normally eats 3 meals daily with snacks. 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 Breakfast: oatmeal (brown sugar and raisins, or applesauce and cinnamon), or two slices of whole grain toast with jelly Lunch (largest meal): meat with 2-3 types of vegetables or salad Supper: Typically same as lunch only smaller portion - meat with potatoes and vegetable Snacks: snacks a couple times a day on fruit, or cottage cheese Current Intake: Sub optimal - meeting <75% of estimated needs x 3 days d/t slowly increasing TPN. Parenteral Nutrition: 115 gm protein, 525 kcal/day CHO, and 450 kcal/day Lipids Total Nutrition From TPN: 1435 kcals (82% of estimated needs) 115 gm pro (100% of estimated needs) Multivitamins and trace elements given daily Date TPN Started: 04/02 Reason TPN Started: Inability to take sufficient PO, NPO Physical Assessment: Edema: (per chief optometry service at 0838 today) Generalized Edema None GI Assessment: Abdominal exam: Non-tender and Slightly firm with Hypoactive bowel sounds, per chief optometry service at 0838 today. Stool Frequency: 0-1x/day over the last 2 days Wounds/Pressure Points: (per chief optometry service at 0838 today) Coccyx Blanchable Redness Functional Status: WDL Nutrition Focused Physical Exam: Completed by RD on 04/04/2021 Below the Eye (fat): Slightly Bulged Fat Pads (Within Defined Limits) Jainism (muscle): Able to see/feel well-defined muscle (Within defined limits) Buccal (fat): Full, round/filled out cheeks (Within defined limits) Clavicle (muscle): Some protrusion of bone (mild-moderate) (Mild) Shoulder (muscle)/Deltoid muscle: Rounded curves at arm/shoulder/neck (Within defined limits) Triceps/Biceps (fat): Ample fat tissue obvious between folds of skin (Within defined limits) Hand/Interosseous (muscle): Flat to bulging muscle (Within defined limits) Thigh (muscle): Well-rounded, no bone prominence (Within defined limits) Calf (muscle): Well-developed bulb of muscle (Within defined limits) Nutritionally-Relevant Medications, Vitamins and Minerals: TPN Nutritionally-Relevant Biochemical Data: (04/04/2021) Glucose 103 H Potassium 3.3 L Albumin 3.4 L Allergies/Food Intolerance: Sabrina is allergic to penicillin, tetracyclines, arimidex [anastrozole], aspirin, ciprofloxacin, influenza vaccines, lactose [milk/dairy products], macrodantin [nitrofurantoin], singulair [montelukast sodium], and sulfa drugs. Culturally Sabianist Needs: no INTERVENTIONS Provided TPN recommendations Conducted NFPE Obtained diet history MONITORING/EVALUATION Monitor I&O, weight trends, nutrition-related labs and medications, clinical status, and planof care r/t need for nutrition intervention and provide as warranted Monitor TPN, tolerance and labs with regular f/u assessments. Adjust TPN as needed. Nutrition Therapy will reassess every 1-[address], LRD Alpha Pager # [phone] Ext # [phone] are Ishmael - Camila Jameson RN - 04/04/2021 3:30 AM CDT Problem: PHYSICAL COMFORT Goal: CLIENT SATISFACTION: PAIN MANAGEMENT Description: DEFINITION: Extent of positive perception of nursing care to relieve pain. 1=Not at all satisfied, 2=Somewhat satisfied, 3=Moderately satisfied, 4=Very satisfied, 5=Completely satisfied. Outcome: NOC Rating 4 Flowsheets (Taken 04/04/2021 0329) Plan of care reviewed with: Patient Patient specific goal for the day: Patient will notify staff for S/Sx of pain Patient specific goal for the stay: Pain will be managed with over the counter medications. Achieve goal for stay: By discharge Patient Progress: Patient denies pain at this time. PRNs available if needed, see MAR. Will monitor. are Ishmael - Alicia Salgado RN - 04/03/2021 10:43 PM CDT Problem: PHYSICAL COMFORT Goal: CLIENT SATISFACTION: PAIN MANAGEMENT Description: DEFINITION: Extent of positive perception of nursing care to relieve pain. 1=Not at all satisfied, 2=Somewhat satisfied, 3=Moderately satisfied, 4=Very satisfied, 5=Completely satisfied. Outcome: NOC Rating 5 Flowsheets (Taken 04/03/2021 4654) Plan of care reviewed with: Patient Patient specific goal for the day: Patient will notify staff for S/Sx of pain Patient Progress: Pt denies pain, will monitor. Advance Care Planning - Boone Craven CHAPLAIN - 04/03/2021 3:51 PM CDT OVERVIEW Sabrina Singleton had an advance care planning conversation with this ACP public health officer for 30 minutes in which no decisions were made during this visit. Motivation for ACP Consultation: new onset illness RESOURCE(S) PROVIDED ACP Communicating Your Wishes booklet and Honoring Choices I spent 16-45 minutes [id number] with this patient today and all of this time was spent counseling, educating, and in coordination of care with regard to Advance Care Planning. Sabrina expressed that she wanted to look over and go through it with her daughter. Thread Milling Machine Set Up Operator availablefor assistance as requested. upplemental Progress Note - Shannon Blunt DO - 04/03/2021 3:30 PM CDT Surgical Oncology Supplemental Note Patient seen at [facility] transfer. No complaints or concerns at this time. Discussed that still waiting for pathology results and MRI read. Also in the process of discussing case with Dr Serna. Further recommendations to follow Shannon Blunt DO Mobile Battery Technician [id number] signed by Shannon Blunt DO at 04/03/2021 3:33 PM CDTClinical Team - Ange Robles RN - 04/03/2021 2:18 PM CDT Upon Transfer to , skin assessment completed with Darrell Rodriguez RN. Upon skin assessment including pressure points findings include: blanchable redness to coccyx and scar to right lower [place] and back. Plan/Intervention: Routine skin care and promote activity. ase Tima - Christine Baird RN - 04/03/2021 1:30 PM CDT CASE MANAGEMENT / SOCIAL SERVICE TRANSITION PLAN - INITIAL ASSESSMENT TRANSITION PLAN: Awaiting Medical Doctor Recommendations for Transition Will Continue to Follow for Support and Progression Towards Final Transition Plan BARRIERS TO TRANSITION: Medical barriers: MRCP pending Pathology results NG tube to LIWS IVF Electrolyte replacement NPO GI/TRACS consults Nausea management COMMENTS / PATIENT AND FAMILY RESPONSE TO PLAN: CM met with patient and discussed plan of care and discharge goals. [place] and [place] miles [place]. Patient doesn't drive she uses Meals on Wheels daily with Trina a [facility] high risk case manager that comes in and drives her picking machine operator helper errands/groceries. Daughter drives her to appointments. Patient states Trina is through the [facility] and only uses her for scheduled rides. Patient uses 4WW with seat and a 2WW at home and a 2WW that folds in half for traveling. Patient has a handicap built bathroom at home. Patient manages her own medications and finances and has a PCP. Patient is unsure about home ride at discharge due to family working multimedia designer. CM informed patientthat we would reach out to her closer to discharge and coordinate something if family is unable to assist. CM to continue to follow for any needs, plan for transfer to [address] for continued care with Oncology. ADMISSION DX: No admission diagnoses are documented for this encounter. PATIENT STATUS: Inpatient RELEASE OF INFORMATION: Yes -- verbal for: Discharge planning SOURCES OF INFORMATION (See demographics for contact information): Medical Doctor Medical Record Patient CURRENT LIVING SITUATION / LEVEL OF ASSISTANCE: Lives alone Four Wheeled Walker Four-Wheeled Walker with Hand Brakes and a Seat COMMUNITY SERVICES: [facility] [id number] HEALTHCARE DIRECTIVE: No POWER OF PARTS ROOM ASSISTANT: None FINANCIAL CONCERNS: No Concerns PRIMARY CARE PHYSICIAN: Yes Helen Cardenas MD : No IS PATIENT'S ADMISSION ASSOCIATED WITH TIA, ISCHEMIC, OR HEMORRHAGIC STROKE?: No LANGUAGE / COMMUNICATION BARRIERS: No PATIENT / SUBSTITUTE DECISION MAKER GOAL UPON TRANSITION: First Choice: Home Health: Nurse, Occupational Therapy and Physical Therapy Home: Family/Friend Support ANTICIPATED NEEDS, TRANSITION CHOICES OFFERED: [facility] Transitional Care RESOURCE(S) PROVIDED: nothing needed at this time DOES PATIENT HAVE CLOTHING TO WEAR AT DISCHARGE? Yes ANTICIPATED MODE OF TRANSPORT UPON DISCHARGE: Other: TBD Unsure if family will be able to assist at discharge time. VERIFIED CORRECT PHARMACY IS ENTERED FOR DISCHARGE: Yes - Pharmacy: [facility] CURRENT READMISSION RISK SCORE Predictive Risk Score Risk of Unplanned Readmission: 20.3 Please refer to readmission risk assessment flowsheet for further details. SIGNED: Christine Baird RN, BSN Case Management [facility] 6CD (Office) PH: [phone] FAX: [phone] linical Team - Ivelisse Albrecht RN - 04/03/2021 10:19 AM CDT Telephone report given to Valentina on 7S. Questions answered. Plan to transfer at 1100. Advance Care Planning - Lino Chavez CHAPLAIN - 04/03/2021 10:05 AM CDT The welt treater visited this pt about filling out a HCD. The pt told the welt treater that she should be moving today from [facility]. She would rather fill out this form over there. The welt treater sent an email to [facility] to inform them of this request from the pt. are Planning - Verena Rivera RN - 04/03/2021 3:38 AM CDT Problem: PHYSICAL COMFORT Goal: CLIENT SATISFACTION: PAIN MANAGEMENT Description: DEFINITION: Extent of positive perception of nursing care to relieve pain. 1=Not at all satisfied, 2=Somewhat satisfied, 3=Moderately satisfied, 4=Very satisfied, 5=Completely satisfied. Outcome: NOC Rating 5 Flowsheets (Taken 04/03/2021 0336) Initial Score: 3 Target Score: 4 Plan of care reviewed with: Patient Patient specific goal for the day: Patient will rate pain less the 7/10. Patient specific goal for the stay: Pain will be managed with over the counter medications. Achieve goal for stay: By discharge Patient Progress: Pt given dilaudid to help reduce lower back pain so she can sleep. Nutrition Team - Dilma Huff RD, LRD - 04/02/2021 1:17 PM CDT Nutrition Therapy Initial Assessment Referral: Nutrition Assessment [facility] weight loss and poor po intake Hospital Day: 1 days Active Problems: Right pleural effusion Nausea and vomiting x 1mo PMH: breast cancer with liver and bone metastasis, HTN, CHF, COPD Recommendations: 1) Continue TPN for nutrition support Nutrition Goals: 1700 kcal and 100 gm protein daily 2) Discontinue D5W with starting TPN 3) Resume oral diet when medically appropriate, recommend Clear to Surgical Soft diet 4) Check triglycerides Reassess for malnutrition criteria upon follow up NUTRITION ASSESSMENT NG to Anthropometrics: Height: 170.2 cm (5' 7") Admission Weight: Weight: 70.1 kg (154 lb 8 oz) as of 03/31/2021 per bed scale Most Recent Weight: Weight: 70.1 kg (154 lb 8 oz) (03/31/21 1600) per bed scale Lowest Weight Since Admission: 70.1 kg Weight Change: 0 kg (0 lb) since admission BMI: Body mass index is 24.2 kg/m. IBW: 61 kg %IBW: 115% (based on admit weight) Usual Body Weight: (135-140 lb) Unintentional Weight Loss: Current weight down 3.5 kg in past month 5% (stable x 1 year) Vitals WEIGHT WEIGHT IN KG 03/31/2021 154 lb 8 oz 70.081 kg 03/24/2021 159 lb 9.6 oz 72.394 kg 03/03/2021 162 lb 1.6 oz 73.528 kg 01/13/2021 165 lb 3.2 oz 74.934 kg 04/15/2020 152 lb 8 oz 69.174 kg Estimated Needs: 9812-3147 kcal/day ([place] [facility] Jeor x 1.2-1.4 Using: Admission Weight) 1750 kcal 25 kcal/kg 92-122 gm protein (1.5-2 gm/kg Using:[place] Body Weight) Fluids per MD Intake Records: Intake Prior to Admit: Intake Prior to Admit: Less than or equal to 75% of estimated energy requirements for greater than or equal to 1 month Unable to complete diet hx, pt was leaving for procedure, and she informed me she didn't need me as they weren't letting her eat. Current Diet: Nutrition (From admission, onward) Start Ordered 04/01/21 1040 Diet - NPO Now Question: Standard Diets Answer: NPO 04/01/21 1038 Parenteral Nutrition: 115 gm protein, 350 kcal/day CHO, and 600 kcal/day Lipids Total Nutrition From TPN: 1110 kcals (65% of estimated needs) 115 gm pro (100% of estimated needs) Multivitamins and trace elements given daily Date TPN Started: 04/02 Reason TPN Started: Inability to take sufficient po Physical Assessment: (per chief optometry service at 0700 today) Edema: Generalized Edema none GI Assessment: Abdominal exam: Non-tender and Soft with Hypoactive bowel sounds NG output: 0 Stool Frequency: Pt has not had a documented BM since admission Wounds/Pressure Points: Ear Blanchable Redness Nutrition Focused Physical Exam: Deferred at this time due to pt out for procedure Nutritionally-Relevant Medications, Vitamins and Minerals: D5W, TPN (scheduled) Nutritionally-Relevant Biochemical Data: (04/01/2021) Glucose 141 H Sodium 138 Potassium 3.5 Albumin 3.2 L Allergies/Food Intolerance: Sabrina is allergic to penicillin, tetracyclines, arimidex [anastrozole], aspirin, ciprofloxacin, influenza vaccines, lactose [milk/dairy products], macrodantin [nitrofurantoin], singulair [montelukast sodium], and sulfa drugs. Culturally Sabianist Needs: no INTERVENTIONS Provided TPN recommendations Consult acknowledged MONITORING/EVALUATION Monitor diet advancement Monitor TPN, tolerance and labs with regular f/u assessments. Adjust TPN as needed. Nutrition Therapy will reassess every 1-[address], CDE Pager #[phone] Pharmacy - Miguelangel Dumont, PHARM D - 04/02/2021 11:30 AM CDT Images from the original note were not included. TPN Initial Consult Note Ms. Singleton has been initiated on TPN per pharmacy protocol for small bowel obstruction. The patient currently has an IVAD line placed. Nutrition goals: 115 AAg (1.64 g/kg/day), 1760 Kcal/kg/day, 1138 mL/day (16.2 mL/kg/day) Initial TPN bag will provide 1110 kcal/kg/day and 1.64 g of AA/kg/day Macronutrients included: 115 g AA 300 kcal Fat 350 kcal Dextrose Micronutrients/electrolytes include: 60 mEq Na 60 mEq K 15 mmol Phos 8 mEq Mg 5 mEq Ca 3:1 Ac:Cl 10 mL MTV 1 mL Trace No Famotidine No Insulin Labs: Recent Labs 03/31/21 1041 03/31/21 1041 04/01/21 0740 04/01/21 1005 04/01/21 1137 04/01/21 1428 04/02/21 0810 POTASSIUM 3.6 -- 3.8 -- -- -- 3.5 MAGNESIUM -- -- 2.0 -- -- -- 2.1 PHOSPHORUS -- -- 4.2 -- -- -- 2.3* BUN 10 -- 14 -- -- -- 10 ALBUMIN 3.3* -- 3.0* -- -- -- 3.2* GLUCOSE 91 < > 66* < > 75 95 141* < > = values in this interval not displayed. Lab Results Component Value Date ALKPHOS 66 04/02/2021 BILIDIRECT 0.3 02/10/2019 BILIINDIRECT 0.3 02/10/2019 BILITOTAL 0.3 04/02/2021 AST 13 04/02/2021 ALT 9 04/02/2021 TRIGLYCERIDE 149 03/15/2015 POC Glucose 04/02/21 0810 04/01/21 1428 04/01/21 1137 POC Glucose 95 75 Lab Glucose 141 Calculated CrcI: Estimated Creatinine Clearance: 68.6 mL/min (based on SCr of 0.7 mg/dL). Intake/Output: Date 04/01/21699 - 04/02/21 0659 04/02/21699 - 04/03/21 0659 Shift [id number] 24 Hour Total 1899-0659 24 Hour Total INTAKE IV 1458 1458 I.V. 1158 1158 Volume (mL) (lactated ringers IV solution) 300 300 Shift Total 1458 1458 OUTPUT Urine Unmeasured Urine Occurrence 3 x 3 x 1 x 1 x Stool Unmeasured Stool Occurrence 0 x 0 x 0 x 0 x 0 x Shift Total NET 1458 1458 Weight (kg) 70.1 70.1 70.1 70.1 70.1 70.1 Pharmacy will monitor and if indicated, adjust daily per the Pharmacy and Therapeutics Committee approved TPN consult service policy. Thank you very much for the consult. Miguelangel Dumont, KariD Clinical Pharmacist [facility] Planning - Karla Castaneda RN - 04/02/2021 9:09 AM CDT Problem: PHYSICAL COMFORT Goal: CLIENT SATISFACTION: PAIN MANAGEMENT Description: DEFINITION: Extent of positive perception of nursing care to relieve pain. 1=Not at all satisfied, 2=Somewhat satisfied, 3=Moderately satisfied, 4=Very satisfied, 5=Completely satisfied. Outcome: NOC Rating 3 Flowsheets (Taken 04/02/2021 09) Initial Score: 3 Target Score: 4 Plan of care reviewed with: Patient Patient specific goal for the day: Patient will rate pain less the 7/10. Patient specific goal for the stay: Pain will be managed with over the counter medications. Achieve goal for stay: By discharge Patient Progress: Patient appears to be comfortable, VSS, A&O will continue to monitor and treatdiscomfort as it appears. are Planning - Verena Rivera RN - 04/02/2021 4:10 AM CDT Problem: PHYSICAL COMFORT Goal: CLIENT SATISFACTION: PAIN MANAGEMENT Description: DEFINITION: Extent of positive perception of nursing care to relieve pain. 1=Not at all satisfied, 2=Somewhat satisfied, 3=Moderately satisfied, 4=Very satisfied, 5=Completely satisfied. Outcome: NOC Rating 5 Flowsheets (Taken 04/02/2021 0409) Initial Score: 4 Target Score: 5 Plan of care reviewed with: Patient Patient specific goal for the day: pt will report optimal pain relief Patient specific goal for the stay: Pain will be managed with ordered prn medications. Achieve goal for stay: By discharge Patient Progress: An order of hydrocodone was recived for lower back pain as patient takes this at home., she reports pain is better after. Clinical Team - Verena Rivera RN - 04/01/2021 11:12 PM CDT Verified the following with Anni Atkinson RN Code status order: DNR Patient understands and agrees Code status band applied Clinical Team - Aleena Cabrales RN - 04/01/2021 6:20 PM CDT Patient returned to floor from EGD. Vitals stable. Very drowsy. skin assessment completed with Eileen KAMINSKI Upon skin assessment including pressure points findings include: No changes noted from previous skincheck I Procedure - Jose Johansen MD - 04/01/2021 1:29 PM CDT [facility] Patient Name: Sabrina Singleton Procedure Date: 04/01/2021 1:29 PM Date of : 1945 Admit Type: Inpatient Age: 75 Gender: Female Surgeon: JOSE JOHANSEN MD Procedure: Upper GI endoscopy Indications: Abnormal CT of the GI tract, Suspected gastric outlet obstruction, Suspected duodenal obstruction Providers: JOSE JOHANSEN MD, KARENA ALLEN RN, GURVINDER PAREDES RN Medicines: General Anesthesia Complications: No immediate complications. Estimated Blood Loss: Estimated blood loss was minimal. Procedure: Pre-Anesthesia Assessment: - Prior to the procedure, a History and Physical was performed, and patient medications and allergies were reviewed. The patient's tolerance of previous anesthesia was also reviewed. The risks and benefits of the procedure and the sedation options and risks were discussed with the patient. All questions were answered, and informed consent was obtained. Prior Anticoagulants: The patient has taken no previous anticoagulant or antiplatelet agents. ASA Grade Assessment: III - A patient with severe systemic disease. After reviewing the risks and benefits, the patient was deemed in satisfactory condition to undergo the procedure. After obtaining informed consent, the endoscope was passed under direct vision. Throughout the procedure, the patient's blood pressure, pulse, and oxygen saturations were monitored continuously. The Endoscope [id number] was introduced through the mouth, and advanced to the second part of duodenum. The upper GI endoscopy was accomplished without difficulty. The patient tolerated the procedure well. Findings: Food was found in the lower third of the esophagus. A 4 cm hiatal hernia was present. A medium amount of food (residue) was found in the gastric fundus. Multiple dispersed, less than 5 mm non-bleeding erosions were found in the entire examined stomach. There were no stigmata of recent bleeding. Food (residue) was found in the duodenal bulb. An acquired malignant-appearing, intrinsic severe stenosis was found in the first portion of the duodenum and in the second portion of the duodenum and was traversed. Biopsies were taken with a cold forceps for histology. The examined jejunum was normal. NG tube as removed prior to procedure and replaced at end of procedure, confirmed at 65cm at nares endoscopically through the diaphragmatic hiatus. Impression: - Food in the lower third of the esophagus. - 4 cm hiatal hernia. - A medium amount of food (residue) in the stomach. - Non-bleeding erosive gastropathy. - Retained food in the duodenum. 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 Biopsied. - Normal examined jejunum. Recommendation: - Await pathology results. - NG tube was replaced. Keep to LIS. - Consider start of TPN while awaiting pathology as i do not think any enteral nutrition will pass the stomach and the patient needs ongoing gastric suction for obstruction. - If malignant, can consider repeat EGD for duodenal stent placement vs palliative gastric bypass. - GI will sign off. call with questions or clinical deterioration. Jose Johansen MD JOSE JOHANSEN MD 04/01/2021 3:23:39 PM This report has been signed electronically.JOSE JOHANSEN MD Number of Addenda: 0 Note Initiated On: 04/01/2021 1:29 PM Total Procedure Duration Time 0 hours 25 minutes 53 seconds Scope In: 1:45:15 PM Scope Out: 2:11:08 PM are Planning - Verena Rivera RN - 04/01/2021 6:45 AM CDT Problem: PHYSICAL COMFORT Goal: CLIENT SATISFACTION: PAIN MANAGEMENT Description: DEFINITION: Extent of positive perception of nursing care to relieve pain. 1=Not at all satisfied, 2=Somewhat satisfied, 3=Moderately satisfied, 4=Very satisfied, 5=Completely satisfied. Outcome: NOC Rating 5 Flowsheets (Taken 04/01/2021 0642) Initial Score: 4 Target Score: 5 Plan of care reviewed with: Patient Patient specific goal for the day: pt will report optimal pain relief Patient specific goal for the stay: Pain will be managed with ordered prn medications. Achieve goal for stay: By discharge Patient Progress: An order of hydrocodone was recived for lower back pain as patient takes this at home., she reports pain is better after. Clinical Team - Thao Santana RN - 03/31/2021 5:30 PM CDT Upon Admission to 8AB, skin assessment completed with Clinton Lopez RN Upon skin assessment including pressure points findings include: -IVAD left accessed -Surgical scar Right lower leg and upper back - Abrasion to lower back No other skin issues noted. documented in this encounter Plan of Treatment Date Type Specialty Care Team Description 04/14/2021 Infusion Visit INFUSION Arrived 05/03/2021 Office Visit General Surgery Sarah Joshua MD [address] [place] [id number] [phone] Name Type Priority Associated Diagnoses Date/Ti me TISSUE EXAM PATH Routine Bowel obstruction (HCC) 03/23 2:28 PM CDT Name Type Priority Associated Order Schedule Diagnoses COMPLETE BLOOD COUNT WITH Lab Routine Ea rly AM draw for DIFFERENTIAL labs until discontinued starting 04/01/2021, 14 completed COMPREHENSIVE METABOLIC PANEL Lab Routine Early AM draw for labs until discontinued starting 04/01/2021, 14 completed MAGNESIUM Lab Routine Early AM draw f or labs until discontinued starting 04/01/2021, 14 completed PHOSPHORUS Lab Routine Early AM draw f or labs until discontinued starting 04/01/2021, 14 completed ESOPHAGOGASTRODUODENOSCOPY Procedures Routine O nce for 1 Occurrences starting 04/01/2021 unti l 04/01/2021 TISSUE EXAM PATH Routine Bowel Release Upon obstruction Ordering for 1 (HCC) Occurrences starting 04/07/2021, 1 completed documented as of this encounter Procedures Procedure Name Priority Date/Time Associated Comments Diagnosis LAB ONLY-COMPLETE Routine 04/14/2021 7:22 Result s for this BLOOD COUNT WITH AM CDT procedure a re in DIFFERENTIAL the results section. PHOSPHORUS Routine 04/14/2021 7:22 Results for this AM CDT procedure are i n the results section. MAGNESIUM Routine 04/14/2021 7:22 Results for this AM CDT procedure are i n the results section. COMPREHENSIVE Routine 04/14/2021 7:22 Results fo r this METABOLIC PANEL AM CDT procedure ar e in the results section. LAB ONLY-COMPLETE Routine 04/14/2021 7:22 Result s for this BLOOD COUNT WITH AM CDT procedure a re in DIFFERENTIAL the results section. LAB ONLY-COMPLETE Routine 04/13/2021 6:37 Result s for this BLOOD COUNT WITH AM CDT procedure a re in DIFFERENTIAL the results section. PHOSPHORUS Routine 04/13/2021 6:37 Results for this AM CDT procedure are i n the results section. MAGNESIUM Routine 04/13/2021 6:37 Results for this AM CDT procedure are i n the results section. COMPREHENSIVE Routine 04/13/2021 6:37 Results fo r this METABOLIC PANEL AM CDT procedure ar e in the results section. LAB ONLY-COMPLETE Routine 04/13/2021 6:37 Result s for this BLOOD COUNT WITH AM CDT procedure a re in DIFFERENTIAL the results section. SARS-COV-2, INFLUENZA STAT 04/12/2021 5:53 Re sults for this A+B, AND/OR RSV PM CDT procedure ar e in NUCLEIC ACID TESTING the res ults PANEL section. LAB ONLY-COMPLETE Routine 04/12/2021 7:21 Result s for this BLOOD COUNT WITH AM CDT procedure a re in DIFFERENTIAL the results section. PHOSPHORUS Routine 04/12/2021 7:21 Results for this AM CDT procedure are i n the results section. MAGNESIUM Routine 04/12/2021 7:21 Results for this AM CDT procedure are i n the results section. COMPREHENSIVE Routine 04/12/2021 7:21 Results fo r this METABOLIC PANEL AM CDT procedure ar e in the results section. LAB ONLY-COMPLETE Routine 04/12/2021 7:21 Result s for this BLOOD COUNT WITH AM CDT procedure a re in DIFFERENTIAL the results section. LAB ONLY-COMPLETE Routine 04/11/2021 8:15 Result s for this BLOOD COUNT WITH AM CDT procedure a re in DIFFERENTIAL the results section. PHOSPHORUS Routine 04/11/2021 8:15 Results for this AM CDT procedure are i n the results section. MAGNESIUM Routine 04/11/2021 8:15 Results for this AM CDT procedure are i n the results section. COMPREHENSIVE Routine 04/11/2021 8:15 Results fo r this METABOLIC PANEL AM CDT procedure ar e in the results section. LAB ONLY-COMPLETE Routine 04/11/2021 8:15 Result s for this BLOOD COUNT WITH AM CDT procedure a re in DIFFERENTIAL the results section. LAB ONLY-COMPLETE Routine 04/10/2021 6:13 Result s for this BLOOD COUNT WITH AM CDT procedure a re in DIFFERENTIAL the results section. PHOSPHORUS Routine 04/10/2021 6:13 Results for this AM CDT procedure are i n the results section. MAGNESIUM Routine 04/10/2021 6:13 Results for this AM CDT procedure are i n the results section. COMPREHENSIVE Routine 04/10/2021 6:13 Results fo r this METABOLIC PANEL AM CDT procedure ar e in the results section. LAB ONLY-COMPLETE Routine 04/10/2021 6:13 Result s for this BLOOD COUNT WITH AM CDT procedure a re in DIFFERENTIAL the results section. LAB ONLY-COMPLETE Routine 04/09/2021 7:14 Result s for this BLOOD COUNT WITH AM CDT procedure a re in DIFFERENTIAL the results section. PHOSPHORUS Routine 04/09/2021 7:14 Results for this AM CDT procedure are i n the results section. MAGNESIUM Routine 04/09/2021 7:14 Results for this AM CDT procedure are i n the results section. COMPREHENSIVE Routine 04/09/2021 7:14 Results fo r this METABOLIC PANEL AM CDT procedure ar e in the results section. LAB ONLY-COMPLETE Routine 04/09/2021 7:14 Result s for this BLOOD COUNT WITH AM CDT procedure a re in DIFFERENTIAL the results section. LAB ONLY-COMPLETE Routine 04/08/2021 6:01 Result s for this BLOOD COUNT WITH AM CDT procedure a re in DIFFERENTIAL the results section. PHOSPHORUS Routine 04/08/2021 6:01 Results for this AM CDT procedure are i n the results section. MAGNESIUM Routine 04/08/2021 6:01 Results for this AM CDT procedure are i n the results section. COMPREHENSIVE Routine 04/08/2021 6:01 Results fo r this METABOLIC PANEL AM CDT procedure ar e in the results section. LAB ONLY-COMPLETE Routine 04/08/2021 6:01 Result s for this BLOOD COUNT WITH AM CDT procedure a re in DIFFERENTIAL the results section. GLUCOSE BY METER, POCT Routine 04/08/2021 5:01 R esults for this AM CDT procedure are i n the results section. GLUCOSE BY METER, POCT Routine 04/07/2021 4:58 R esults for this PM CDT procedure are i n the results section. OR PANEL 1 POCT Routine 04/07/2021 3:11 Results for this PM CDT procedure are i n the results section. LAPAROSCOPIC GASTRIC 04/07/2021 12:26 Bowel obstructio n RESECTION ROBOTIC XI PM CDT ([facility]) Case Notes WILL REMAIN INPATIENT-- 732 LAB ONLY-COMPLETE BLOOD COUNT Routine 04/07/2021 Results for WITH DIFFERENTIAL 5:20 AM CDT this proce dure are in the results section. PHOSPHORUS Routine 04/07/2021 Results for 5:20 AM CDT this procedure are in the results section. MAGNESIUM Routine 04/07/2021 Results for 5:20 AM CDT this procedure are in the results section. COMPREHENSIVE METABOLIC PANEL Routine 04/07/2021 Results for 5:20 AM CDT this procedure are in the results section. LAB ONLY-COMPLETE BLOOD COUNT Routine 04/07/2021 Results for WITH DIFFERENTIAL 5:20 AM CDT this proce dure are in the results section. LAB ONLY-COMPLETE BLOOD COUNT Routine 04/06/2021 Results for WITH DIFFERENTIAL 10:48 AM CDT this proce dure are in the results section. TYPE AND SCREEN Routine 04/06/2021 Results for 10:48 AM CDT this procedure are in the results section. PHOSPHORUS Routine 04/06/2021 Results for 10:48 AM CDT this procedure are in the results section. MAGNESIUM Routine 04/06/2021 Results for 10:48 AM CDT this procedure are in the results section. COMPREHENSIVE METABOLIC PANEL Routine 04/06/2021 Results for 10:48 AM CDT this procedure are in the results section. LAB ONLY-COMPLETE BLOOD COUNT Routine 04/06/2021 Results for WITH DIFFERENTIAL 10:48 AM CDT this proce dure are in the results section. LAB ONLY-COMPLETE BLOOD COUNT Routine 04/05/2021 Results for WITH DIFFERENTIAL 7:52 AM CDT this proce dure are in the results section. PHOSPHORUS Routine 04/05/2021 Results for 7:52 AM CDT this procedure are in the results section. MAGNESIUM Routine 04/05/2021 Results for 7:52 AM CDT this procedure are in the results section. COMPREHENSIVE METABOLIC PANEL Routine 04/05/2021 Results for 7:52 AM CDT this procedure are in the results section. LAB ONLY-COMPLETE BLOOD COUNT Routine 04/05/2021 Results for WITH DIFFERENTIAL 7:52 AM CDT this proce dure are in the results section. LAB ONLY-ABORH Routine 04/05/2021 Results for 7:49 AM CDT this procedure are in the results section. LAB ONLY-COMPLETE BLOOD COUNT Routine 04/04/2021 Results for WITH DIFFERENTIAL 5:13 AM CDT this proce dure are in the results section. PHOSPHORUS Routine 04/04/2021 Results for 5:13 AM CDT this procedure are in the results section. MAGNESIUM Routine 04/04/2021 Results for 5:13 AM CDT this procedure are in the results section. COMPREHENSIVE METABOLIC PANEL Routine 04/04/2021 Results for 5:13 AM CDT this procedure are in the results section. LAB ONLY-COMPLETE BLOOD COUNT Routine 04/04/2021 Results for WITH DIFFERENTIAL 5:13 AM CDT this proce dure are in the results section. LAB ONLY-COMPLETE BLOOD COUNT Routine 04/03/2021 Results for WITH DIFFERENTIAL 7:00 AM CDT this proce dure are in the results section. PHOSPHORUS Routine 04/03/2021 Results for 7:00 AM CDT this procedure are in the results section. MAGNESIUM Routine 04/03/2021 Results for 7:00 AM CDT this procedure are in the results section. COMPREHENSIVE METABOLIC PANEL Routine 04/03/2021 Results for 7:00 AM CDT this procedure are in the results section. LAB ONLY-COMPLETE BLOOD COUNT Routine 04/03/2021 Results for WITH DIFFERENTIAL 7:00 AM CDT this proce dure are in the results section. MRI ABDOMEN WITH AND WITHOUT Routine 04/02/2021 Results for CONTRAST 8:08 PM CDT this procedure are in the results section. LAB ONLY-COMPLETE BLOOD COUNT Routine 04/02/2021 Results for WITH DIFFERENTIAL 8:10 AM CDT this proce dure are in the results section. PHOSPHORUS Routine 04/02/2021 Results for 8:10 AM CDT this procedure are in the results section. MAGNESIUM Routine 04/02/2021 Results for 8:10 AM CDT this procedure are in the results section. COMPREHENSIVE METABOLIC PANEL Routine 04/02/2021 Results for 8:10 AM CDT this procedure are in the results section. LAB ONLY-COMPLETE BLOOD COUNT Routine 04/02/2021 Results for WITH DIFFERENTIAL 8:10 AM CDT this proce dure are in the results section. UPPER ENDOSCOPY 04/01/2021 Gastric outlet 8:30 PM CDT obstruction GLUCOSE BY METER, POCT Routine 04/01/2021 Resul ts for 2:28 PM CDT this procedure are in the results section. TISSUE EXAM Routine 04/01/2021 Gastric outlet Results for 1:52 PM CDT obstruction this procedure are in the results section. ESOPHAGOGASTRODUODENOSCOPY 04/01/2021 R esults for 1:29 PM CDT this procedure are in the results section. GLUCOSE BY METER, POCT Routine 04/01/2021 Resul ts for 11:37 AM CDT this procedure are in the results section. GLUCOSE BY METER, POCT Routine 04/01/2021 Resul ts for 10:05 AM CDT this procedure are in the results section. LAB ONLY-COMPLETE BLOOD COUNT Routine 04/01/2021 Results for WITH DIFFERENTIAL 7:40 AM CDT this proce dure are in the results section. PHOSPHORUS Routine 04/01/2021 Results for 7:40 AM CDT this procedure are in the results section. MAGNESIUM Routine 04/01/2021 Results for 7:40 AM CDT this procedure are in the results section. COMPREHENSIVE METABOLIC PANEL Routine 04/01/2021 Results for 7:40 AM CDT this procedure are in the results section. LAB ONLY-COMPLETE BLOOD COUNT Routine 04/01/2021 Results for WITH DIFFERENTIAL 7:40 AM CDT this proce dure are in the results section. XRAY CHEST PORTABLE ELIAS 04/01/2021 Results for 1:52 AM CDT this procedure are in the results section. US ABDOMEN LIMITED Routine 03/31/2021 Results f or 5:37 PM CDT this procedure are in the results section. LACTIC ACID REFLEX TO REPEAT Routine 03/31/2021 Results for 4:21 PM CDT this procedure are in the results section. LAB ONLY-URINE MICROSCOPIC STAT 03/31/2021 R esults for REFLEX 12:30 PM CDT this procedure are in the results section. URINE DIP, REFLEX TO STAT 03/31/2021 Results for MICROSCOPIC, REFLEX TO CULTURE 12:30 PM CDT this procedure are in the results section. CT ABDOMEN PELVIS WITH CONTRAST STAT 03/31/2021 Results for 11:46 AM CDT this procedure are in the results section. COMPLETE BLOOD COUNT WITHOUT STAT 03/31/2021 Results for DIFFERENTIAL 10:41 AM CDT this procedure are in the results section. TROPONIN I STAT 03/31/2021 Results for 10:41 AM CDT this procedure are in the results section. LIPASE STAT 03/31/2021 Results for 10:41 AM CDT this procedure are in the results section. COMPREHENSIVE METABOLIC PANEL STAT 03/31/2021 Results for 10:41 AM CDT this procedure are in the results section. EKG ELIAS 03/31/2021 Results for 10:17 AM CDT this procedure are in the results section. documented in this encounter Results LAB ONLY-COMPLETE BLOOD COUNT WITH DIFFERENTIAL (04/14/2021 7:22 AM CDT) Pathologist Sig nature WBC 7.3 4.0 - 11.0 K/uL RBC 3.75 (L) 3.80 - 5.30 [facility] M/uL [facility] Hemoglobin 10.7 (L) 11.5 - 15.8 [facility] g/dL [facility] Hematocrit 33.7 (L) 35.0 - 45.0 % MCV 89.9 80.0 - 98.0 fL MCH 28.5 25.5 - 34.0 pg MCHC 31.8 31.5 - 36.5 [facility] g/dL [facility] RDW-CV 14.6 11.5 - 15.5 % RDW-SD 47.6 35.5 - 50.[address] [facility] Platelet Count 178 140 - 400 K/uL MPV 10.6 8.5 - 12.0 fL Seg Neut Absolute 5.5 1.8 - 8.0 K/uL Lymphocytes Absolute 0.9 0.8 - 4.1 K/uL Monocytes Absolute 0.6 0.0 - 1.0 K/uL Eosinophils Absolute 0.2 0.0 - 0.7 K/uL Basophil Absolute 0.0 0.0 - 0.2 K/uL Immature Granulocyte 0.05 0.00 - 0.06 [facility] Absolute K/uL CLINIC Neutrophils Abs. 5,500 /uL [facility] (Segs and Bands) [facility] Neutrophils Percent 75.9 % Lymphocytes Percent 12.5 % Monocytes Percent 7.5 % Immature Granulocyte 0.7 % [facility] Percent CLINIC Eosinophils Percent 3.0 % Basophil Percent 0.4 % Nucleated RBC 0 /100 WBC's Specimen Blood - Blood specimen (specimen) Performing Organization Address [facility]/ZIP [facility] [place] Phon e Number [address] [address] PHOSPHORUS (04/14/2021 7:22 AM CDT) Pathologist Sig nature Phosphorus 3.0 2.5 - 4.5 mg/dL Specimen Blood - Blood specimen (specimen) Performing Organization Address City/[facility]/ZIP Code Phon e Number [address] [address] [phone] MAGNESIUM (04/14/2021 7:22 AM CDT) Pathologist Sig nature Magnesium 1.9 1.8 - 2.4 mg/dL Specimen Blood - Blood specimen (specimen) Performing Organization Address [facility]/ZIP [facility] [place] Phon e Number [address] [address] COMPREHENSIVE METABOLIC PANEL (04/14/2021 7:22 AM CDT) Pathologist Sig nature Glucose 95 70 - 100 mg/dL BUN 18 6 - 22 mg/dL Creatinine 0.66 0.60 - 1.10 [facility] mg/dL [facility] BUN/Creatinine Ratio 27.3 (H) 10.0 - 25.0 Sodium 135 135 - 145 meq/L Potassium 3.7 3.5 - 5.3 meq/L Chloride 108 99 - 110 meq/L CO2 21 20 - 29 meq/L Anion Gap with K 10 6 - 20 meq/L Calcium 8.2 (L) 8.5 - 10.5 [facility] mg/dL [facility] Protein Total 5.6 (L) 6.0 - 8.2 g/dL Albumin 3.2 (L) 3.5 - 5.0 g/dL Alkaline Phosphatase 74 30 - 150 U/L AST - SGOT 19 0 - 35 U/L ALT - SGPT 27 0 - 55 U/L Bilirubin Total 0.6 0.2 - 1.2 mg/dL Corrected Calcium 8.8 8.5 - 10.5 [facility] mg/dL [facility] Age 75 Years eGFR Non- 88 >=60 [facility] Maldivian mL/min/1.73m2 [facility] eGFR >90 >=60 [facility] mL/min/1.73m2 [facility] Specimen Blood - Blood specimen (specimen) Performing Organization Address City/State/ZIP Code Phon e Number [address] [address] LAB ONLY-COMPLETE BLOOD COUNT WITH DIFFERENTIAL (04/13/2021 6:37 AM CDT) Pathologist [facility] nature WBC 6.1 4.0 - 11.0 K/uL RBC 3.87 3.80 - 5.30 [facility] M/uL [facility] Hemoglobin 11.0 (L) 11.5 - 15.8 [facility] g/dL [facility] Hematocrit 34.9 (L) 35.0 - 45.0 % MCV 90.2 80.0 - 98.0 fL MCH 28.4 25.5 - 34.0 pg MCHC 31.5 31.5 - 36.5 [facility] g/dL [facility] RDW-CV 14.5 11.5 - 15.5 % RDW-SD 47.2 35.5 - 50.0 fl Platelet Count 193 140 - 400 K/uL MPV 10.9 8.5 - 12.0 fL Seg Neut Absolute 4.5 1.8 - 8.0 K/uL Lymphocytes Absolute 0.7 (L) 0.8 - 4.1 K/uL Monocytes Absolute 0.6 0.0 - 1.0 K/uL Eosinophils Absolute 0.2 0.0 - 0.7 K/uL Basophil Absolute 0.0 0.0 - 0.2 K/uL Immature Granulocyte 0.05 0.00 - 0.06 [facility] Absolute K/uL CLINIC Neutrophils Abs. 4,500 /uL [facility] (Segs and Bands) [facility] Neutrophils Percent 73.3 % Lymphocytes Percent 12.1 % Monocytes Percent 10.3 % Immature Granulocyte 0.8 % [facility] Percent CLINIC Eosinophils Percent 2.8 % Basophil Percent 0.7 % Nucleated RBC 0 /100 WBC's Specimen Blood - Blood specimen (specimen) Performing Organization Address City/[facility]/ZIP Code Phon e Number [address] [address] [phone] PHOSPHORUS (04/13/2021 6:37 AM CDT) Pathologist Sig nature Phosphorus 3.6 2.5 - 4.5 mg/dL Specimen Blood - Blood specimen (specimen) Performing Organization Address City/[facility]/ZIP [facility] [place] Phon e Number [address] [address] [phone] MAGNESIUM (04/13/2021 6:37 AM CDT) Pathologist Sig nature Magnesium 2.0 1.8 - 2.4 mg/dL Specimen Blood - Blood specimen (specimen) Performing Organization Address [facility]/ZIP [facility] [place] Phon e Number [address] [address] [phone] COMPREHENSIVE METABOLIC PANEL (04/13/2021 6:37 AM CDT) Pathologist Sig nature Glucose 99 70 - 100 mg/dL BUN 22 6 - 22 mg/dL Creatinine 0.67 0.60 - 1.10 [facility] mg/dL [facility] BUN/Creatinine Ratio 32.8 (H) 10.0 - 25.0 Sodium 137 135 - 145 meq/L Potassium 4.0 3.5 - 5.3 meq/L Chloride 109 99 - 110 meq/L CO2 21 20 - 29 meq/L Anion Gap with K 11 6 - 20 meq/L Calcium 8.5 8.5 - 10.5 [facility] mg/dL [facility] Protein Total 5.9 (L) 6.0 - 8.2 g/dL Albumin 3.2 (L) 3.5 - 5.0 g/dL Alkaline Phosphatase 80 30 - 150 U/L AST - SGOT 23 0 - 35 U/L ALT - SGPT 28 0 - 55 U/L Bilirubin Total 0.6 0.2 - 1.2 mg/dL Corrected Calcium 9.1 8.5 - 10.5 [facility] mg/dL [facility] Age 75 Years eGFR Non- 86 >=60 [facility] Maldivian mL/min/1.73m2 [facility] eGFR >90 >=60 [facility] mL/min/1.73m2 [facility] Specimen Blood - Blood specimen (specimen) Performing Organization Address City/State/ZIP Code Phon e Number [address] [address] [phone] SARS-COV-2, INFLUENZA A+B, AND/OR RSV NUCLEIC ACID TESTING PANEL (04/12/2021 5:53 PM CDT) Pathologist Sig nature SARS-CoV-2 Not Detected Not Detected Specimen Respiratory - Nasopharyngeal swab (speci men) Narrative Performed At Please read entire report. Results for Influenza A and B or RSV may also be available depending on which viruses y our provider selected for testing. Your Covid-19 test is negative: 1)Avoiding close contact is s till recommended. 2)Cover your coughs and snee zes. 3)Wash your hands often with soap and wate r for at least 20 seconds or use an alcohol-based director of strategic communications containing over 60% alcohol. Avoid touch ing your face. 4)Avoid sharing personal household items, including dishes, cups, utensils, towels, clothing, or bedding. These items should be cleaned thoroughly with soap and water after use. Clean all "high touch" surfaces i n your home daily. 5) Monitor your symptoms. Contact your provider if you are feeling worse. If you have shortness of breath or difficulty breathing, call [phone]. This assay is for in vitro diagnostic use under FDA Em ergency Use Authorization only. Optimal performance of this test requires appropriate specimen collection, storage, and transp ort to the test site. Detection of SARS-CoV-2 RNA may be affected by sample collection methods, patient factors (eg, presence of symptoms), and/or stage of infection. False-negative results may arise from degradation of v iral RNA during shipping/storage. Results should be interpreted by a trained professiona l in conjunction with the patient s history and clinical signs and symptoms, and epidemiological risk factors. Negative (Not Detected) results do not preclude infect ion with the SARS-CoV-2 virus and should not be the sole b asis of patient treatment/management or public health decision . Follow up testing should be performed according to the current CDC recommendations. This test was performed by polymerase chain reaction ( PCR) on the GeneXpert instrument. Performing Organization Address City/State/ZIP Code Phon e Number [address] [address] [phone] LAB ONLY-COMPLETE BLOOD COUNT WITH DIFFERENTIAL (04/12/2021 7:21 AM CDT) [employer] Sig nature WBC 5.2 4.0 - 11.0 K/uL RBC 3.81 3.80 - 5.30 [facility] M/uL CLINIC Hemoglobin 10.8 (L) 11.5 - 15.8 [facility] g/dL [facility] Hematocrit 34.3 (L) 35.0 - 45.0 % MCV 90.0 80.0 - 98.0 fL MCH 28.3 25.5 - 34.0 pg MCHC 31.5 31.5 - 36.5 [facility] g/dL [facility] RDW-CV 14.2 11.5 - 15.5 % RDW-SD 46.0 35.5 - 50.[address] [facility] Platelet Count 187 140 - 400 K/uL MPV 10.7 8.5 - 12.0 fL Seg Neut Absolute 3.5 1.8 - 8.0 K/uL Lymphocytes Absolute 1.0 0.8 - 4.1 K/uL Monocytes Absolute 0.4 0.0 - 1.0 K/uL Eosinophils Absolute 0.3 0.0 - 0.7 K/uL Basophil Absolute 0.0 0.0 - 0.2 K/uL Immature Granulocyte 0.06 0.00 - 0.06 [facility] Absolute K/uL [facility] Neutrophils Abs. 3,500 /uL [facility] (Segs and Bands) [facility] Neutrophils Percent 66.5 % Lymphocytes Percent 19.7 % Monocytes Percent 7.3 % Immature Granulocyte 1.1 % [facility] Percent CLINIC Eosinophils Percent 4.8 % Basophil Percent 0.6 % Nucleated RBC 0 /100 WBC's Specimen Blood - Blood specimen (specimen) Performing Organization Address City/[facility]/ZIP Code Phon e Number [address] [address] [phone] PHOSPHORUS (04/12/2021 7:21 AM CDT) Pathologist Sig nature Phosphorus 3.4 2.5 - 4.5 mg/dL Specimen Blood - Blood specimen (specimen) Performing Organization Address City/[facility]/ZIP [facility] [place] Phon e Number [address] [address] MAGNESIUM (04/12/2021 7:21 AM CDT) Pathologist Sig nature Magnesium 2.1 1.8 - 2.4 mg/dL Specimen Blood - Blood specimen (specimen) Performing Organization Address City/[facility]/ZIP [facility] [place] Phon e Number [address] [address] COMPREHENSIVE METABOLIC PANEL (04/12/2021 7:21 AM CDT) [facility] Glucose 108 (H) 70 - 100 mg/dL BUN 15 6 - 22 mg/dL Creatinine 0.64 0.60 - 1.10 [facility] mg/dL [facility] BUN/Creatinine Ratio 23.4 10.0 - 25.0 Sodium 137 135 - 145 meq/L Potassium 4.1 3.5 - 5.3 meq/L Chloride 107 99 - 110 meq/L CO2 25 20 - 29 meq/L Anion Gap with K 9 6 - 20 meq/L Calcium 8.4 (L) 8.5 - 10.5 [facility] mg/dL [facility] Protein Total 5.8 (L) 6.0 - 8.2 g/dL Albumin 3.1 (L) 3.5 - 5.0 g/dL Alkaline Phosphatase 78 30 - 150 U/L AST - SGOT 22 0 - 35 U/L ALT - SGPT 33 0 - 55 U/L Bilirubin Total 0.5 0.2 - 1.2 mg/dL Corrected Calcium 9.1 8.5 - 10.5 [facility] mg/dL [facility] Age 75 Years eGFR Non- >90 >=60 [facility] Maldivian mL/min/1.73m2 [facility] eGFR >90 >=60 [facility] mL/min/1.73m2 [facility] Specimen Blood - Blood specimen (specimen) Performing Organization Address City/State/ZIP Code Phon e Number [address] [place] [address] [phone] LAB ONLY-COMPLETE BLOOD COUNT WITH DIFFERENTIAL (04/11/2021 8:15 AM CDT) Pathologist Sig [facility] WBC 5.9 4.0 - 11.0 K/uL RBC 3.79 (L) 3.80 - 5.30 [facility] M/uL [facility] Hemoglobin 10.4 (L) 11.5 - 15.8 [facility] g/dL CLINIC Hematocrit 34.0 (L) 35.0 - 45.0 % MCV 89.7 80.0 - 98.0 fL MCH 27.4 25.5 - 34.0 pg MCHC 30.6 (L) 31.5 - 36.5 [facility] g/dL [facility] RDW-CV 14.2 11.5 - 15.5 % RDW-SD 46.0 35.5 - 50.0 fl Platelet Count 176 140 - 400 K/uL MPV 10.5 8.5 - 12.0 fL Seg Neut Absolute 4.0 1.8 - 8.0 K/uL Lymphocytes Absolute 0.7 (L) 0.8 - 4.1 K/uL Monocytes Absolute 0.6 0.0 - 1.0 K/uL Eosinophils Absolute 0.4 0.0 - 0.7 K/uL Basophil Absolute 0.0 0.0 - 0.2 K/uL Immature Granulocyte 0.08 (H) 0.00 - 0.06 [facility] Absolute K/uL CLINIC Neutrophils Abs. 4,000 /uL [facility] (Segs and Bands) [facility] Neutrophils Percent 67.9 % Lymphocytes Percent 12.1 % Monocytes Percent 10.4 % Immature Granulocyte 1.4 % [facility] Percent CLINIC Eosinophils Percent 7.5 % Basophil Percent 0.7 % Nucleated RBC 0 /100 WBC's Specimen Blood - Blood specimen (specimen) Performing Organization Address City/State/ZIP Code Phon e Number [address] [address] [phone] PHOSPHORUS (04/11/2021 8:15 AM CDT) Pathologist Sig nature Phosphorus 2.4 (L) 2.5 - 4.5 mg/dL Specimen Blood - Blood specimen (specimen) Performing Organization Address City/State/ZIP Code Phon e Number [address] [address] [phone] MAGNESIUM (04/11/2021 8:15 AM CDT) Pathologist Sig [facility] Magnesium 2.1 1.8 - 2.4 mg/dL Specimen Blood - Blood specimen (specimen) Performing Organization Address [facility] Phon e Number [address] [place] [address] COMPREHENSIVE METABOLIC PANEL (04/11/2021 8:15 AM CDT) Pathologist Sig [facility] Glucose 119 (H) 70 - 100 mg/dL BUN 18 6 - 22 mg/dL Creatinine 0.59 (L) 0.60 - 1.10 [facility] mg/dL [facility] BUN/Creatinine Ratio 30.5 (H) 10.0 - 25.0 Sodium 139 135 - 145 meq/L Potassium 4.1 3.5 - 5.3 meq/L Chloride 110 99 - 110 meq/L CO2 24 20 - 29 meq/L Anion Gap with K 9 6 - 20 meq/L Calcium 8.2 (L) 8.5 - 10.5 [facility] mg/dL [facility] Protein Total 5.6 (L) 6.0 - 8.2 g/dL Albumin 3.0 (L) 3.5 - 5.0 g/dL Alkaline Phosphatase 75 30 - 150 U/L AST - SGOT 32 0 - 35 U/L ALT - SGPT 37 0 - 55 U/L Bilirubin Total 0.5 0.2 - 1.2 mg/dL Corrected Calcium 9.0 8.5 - 10.5 [facility] mg/dL CLINIC Age 75 Years eGFR Non- >90 >=60 [facility] Maldivian mL/min/1.73m2 CLINIC eGFR >90 >=60 [facility] mL/min/1.73m2 CLINIC Specimen Blood - Blood specimen (specimen) Performing Organization Address City/[facility]/ZIP Code Phon e Number [address] [place] [address] [phone] LAB ONLY-COMPLETE BLOOD COUNT WITH DIFFERENTIAL (04/10/2021 6:13 AM CDT) Pathologist Sig nature WBC 6.1 4.0 - 11.0 K/uL RBC 3.87 3.80 - 5.30 [facility] M/uL CLINIC Hemoglobin 11.1 (L) 11.5 - 15.8 [facility] g/dL [facility] Hematocrit 35.1 35.0 - 45.0 % MCV 90.7 80.0 - 98.0 fL MCH 28.7 25.5 - 34.0 pg MCHC 31.6 31.5 - 36.5 [facility] g/dL [facility] RDW-CV 13.9 11.5 - 15.5 % RDW-SD 45.4 35.5 - 50.0 fl Platelet Count 185 140 - 400 K/uL MPV 10.8 8.5 - 12.0 fL Seg Neut Absolute 3.9 1.8 - 8.0 K/uL Lymphocytes Absolute 1.0 0.8 - 4.1 K/uL Monocytes Absolute 0.7 0.0 - 1.0 K/uL Eosinophils Absolute 0.4 0.0 - 0.7 K/uL Basophil Absolute 0.1 0.0 - 0.2 K/uL Immature Granulocyte 0.07 (H) 0.00 - 0.06 [facility] Absolute K/uL [facility] Neutrophils Abs. 3,900 /uL [facility] (Segs and Bands) [facility] Neutrophils Percent 63.6 % Lymphocytes Percent 16.5 % Monocytes Percent 11.1 % Immature Granulocyte 1.1 % [facility] Percent CLINIC Eosinophils Percent 6.9 % Basophil Percent 0.8 % Nucleated RBC 0 /100 WBC's Specimen Blood - Blood specimen (specimen) Performing Organization Address City/State/ZIP Code Phon e Number [address] [address] PHOSPHORUS (04/10/2021 6:13 AM CDT) Pathologist Sig nature Phosphorus 2.6 2.5 - 4.5 mg/dL Specimen Blood - Blood specimen (specimen) Performing Organization Address City/State/ZIP Code Phon e Number [address] [address] MAGNESIUM (04/10/2021 6:13 AM CDT) Pathologist Sig nature Magnesium 2.1 1.8 - 2.4 mg/dL Specimen Blood - Blood specimen (specimen) Performing Organization Address City/[facility]/ZIP Code Phon e Number [address] [address] COMPREHENSIVE METABOLIC PANEL (04/10/2021 6:13 AM CDT) Pathologist Sig nature Glucose 127 (H) 70 - 100 mg/dL BUN 17 6 - 22 mg/dL Creatinine 0.56 (L) 0.60 - 1.10 [facility] mg/dL [facility] BUN/Creatinine Ratio 30.4 (H) 10.0 - 25.0 Sodium 138 135 - 145 meq/L Potassium 4.1 3.5 - 5.3 meq/L Chloride 110 99 - 110 meq/L CO2 23 20 - 29 meq/L Anion Gap with K 9 6 - 20 meq/L Calcium 8.1 (L) 8.5 - 10.5 [facility] mg/dL [facility] Protein Total 6.0 6.0 - 8.2 g/dL Albumin 3.2 (L) 3.5 - 5.0 g/dL Alkaline Phosphatase 70 30 - 150 U/L AST - SGOT 29 0 - 35 U/L ALT - SGPT 32 0 - 55 U/L Bilirubin Total 0.4 0.2 - 1.2 mg/dL Corrected Calcium 8.7 8.5 - 10.5 [facility] mg/dL CLINIC Age 75 Years eGFR Non- >90 >=60 [facility] Maldivian mL/min/1.73m2 CLINIC eGFR >90 >=60 [facility] mL/min/1.73m2 [facility] Specimen Blood - Blood specimen (specimen) Performing Organization Address City/State/ZIP Code Phon e Number [address] [place] [address] LAB ONLY-COMPLETE BLOOD COUNT WITH DIFFERENTIAL (04/09/2021 7:14 AM CDT) Pathologist [facility] WBC 8.1 4.0 - 11.0 K/uL RBC 3.82 3.80 - 5.30 [facility] M/uL CLINIC Hemoglobin 10.8 (L) 11.5 - 15.8 [facility] g/dL [facility] Hematocrit 34.8 (L) 35.0 - 45.0 % MCV 91.1 80.0 - 98.0 fL MCH 28.3 25.5 - 34.0 pg MCHC 31.0 (L) 31.5 - 36.5 [facility] g/dL [facility] RDW-CV 14.1 11.5 - 15.5 % RDW-SD 46.6 35.5 - 50.0 fl Platelet Count 186 140 - 400 K/uL MPV 10.9 8.5 - 12.0 fL Seg Neut Absolute 5.8 1.8 - 8.0 K/uL Lymphocytes Absolute 1.1 0.8 - 4.1 K/uL Monocytes Absolute 0.9 0.0 - 1.0 K/uL Eosinophils Absolute 0.2 0.0 - 0.7 K/uL Basophil Absolute 0.0 0.0 - 0.2 K/uL Immature Granulocyte 0.09 (H) 0.00 - 0.06 [facility] Absolute K/uL CLINIC Neutrophils Abs. 5,800 /uL [facility] (Segs and Bands) [facility] Neutrophils Percent 71.5 % Lymphocytes Percent 13.4 % Monocytes Percent 10.5 % Immature Granulocyte 1.1 % [facility] Percent CLINIC Eosinophils Percent 3.0 % Basophil Percent 0.5 % Nucleated RBC 0 /100 WBC's Specimen Blood - Blood specimen (specimen) Performing Organization Address City/[facility]/ZIP Code Phon e Number [address] [address] [phone] PHOSPHORUS (04/09/2021 7:14 AM CDT) Pathologist Sig nature Phosphorus 2.3 (L) 2.5 - 4.5 mg/dL Specimen Blood - Blood specimen (specimen) Performing Organization Address City/[facility]/ZIP Code Phon e Number [address] [address] MAGNESIUM (04/09/2021 7:14 AM CDT) Pathologist Sig nature Magnesium 2.3 1.8 - 2.4 mg/dL Specimen Blood - Blood specimen (specimen) Performing Organization Address City/[facility]/ZIP Code Phon e Number [address] [address] COMPREHENSIVE METABOLIC PANEL (04/09/2021 7:14 AM CDT) Pathologist Sig nature Glucose 131 (H) 70 - 100 mg/dL BUN 20 6 - 22 mg/dL Creatinine 0.60 0.60 - 1.10 [facility] mg/dL [facility] BUN/Creatinine Ratio 33.3 (H) 10.0 - 25.0 Sodium 137 135 - 145 meq/L Potassium 4.3 3.5 - 5.3 meq/L Chloride 108 99 - 110 meq/L CO2 23 20 - 29 meq/L Anion Gap with K 10 6 - 20 meq/L Calcium 8.0 (L) 8.5 - 10.5 [facility] mg/dL [facility] Protein Total 5.7 (L) 6.0 - 8.2 g/dL Albumin 3.2 (L) 3.5 - 5.0 g/dL Alkaline Phosphatase 58 30 - 150 U/L AST - SGOT 20 0 - 35 U/L ALT - SGPT 24 0 - 55 U/L Bilirubin Total 0.5 0.2 - 1.2 mg/dL Corrected Calcium 8.6 8.5 - 10.5 [facility] mg/dL [facility] Age 75 Years eGFR Non- >90 >=60 [facility] Maldivian mL/min/1.73m2 [facility] eGFR >90 >=60 [facility] mL/min/1.73m2 [facility] Specimen Blood - Blood specimen (specimen) Performing Organization Address City/State/ZIP Code Phon e Number [address] [place] [address] LAB ONLY-COMPLETE BLOOD COUNT WITH DIFFERENTIAL (04/08/2021 6:01 AM CDT) Pathologist Sig nature WBC 10.9 4.0 - 11.0 K/uL RBC 3.69 (L) 3.80 - 5.30 [facility] M/uL [facility] Hemoglobin 10.6 (L) 11.5 - 15.8 [facility] g/dL [facility] Hematocrit 32.7 (L) 35.0 - 45.0 % MCV 88.6 80.0 - 98.0 fL MCH 28.7 25.5 - 34.0 pg MCHC 32.4 31.5 - 36.5 [facility] g/dL [facility] RDW-CV 13.6 11.5 - 15.5 % RDW-SD 43.6 35.5 - 50.0 fl Platelet Count 185 140 - 400 K/uL MPV 10.3 8.5 - 12.0 fL Seg Neut Absolute 9.2 (H) 1.8 - 8.0 K/uL Lymphocytes Absolute 0.9 0.8 - 4.1 K/uL Monocytes Absolute 0.8 0.0 - 1.0 K/uL Eosinophils Absolute 0.0 0.0 - 0.7 K/uL Basophil Absolute 0.0 0.0 - 0.2 K/uL Immature Granulocyte 0.08 (H) 0.00 - 0.06 [facility] Absolute K/uL CLINIC Neutrophils Abs. 9,200 /uL [facility] (Segs and Bands) [facility] Neutrophils Percent 84.0 % Lymphocytes Percent 8.2 % Monocytes Percent 6.9 % Immature Granulocyte 0.7 % [facility] Percent CLINIC Eosinophils Percent 0.1 % Basophil Percent 0.1 % Nucleated RBC 0 /100 WBC's Specimen Blood - Blood specimen (specimen) Performing Organization Address [facility]/ZIP [facility] [place] [facility] Phon e Number [address] [address] PHOSPHORUS (04/08/2021 6:01 AM CDT) Pathologist Sig nature Phosphorus 2.4 (L) 2.5 - 4.5 mg/dL Specimen Blood - Blood specimen (specimen) Performing Organization Address [facility]/ZIP [facility] [place] [facility] Phon e Number [address] [address] MAGNESIUM (04/08/2021 6:01 AM CDT) Pathologist Sig nature Magnesium 2.5 (H) 1.8 - 2.4 mg/dL Specimen Blood - Blood specimen (specimen) Performing Organization Address [facility] Phon e Number [address] [id number] COMPREHENSIVE METABOLIC PANEL (04/08/2021 6:01 AM CDT) Pathologist Sig nature Glucose 144 (H) 70 - 100 mg/dL BUN 19 6 - 22 mg/dL Creatinine 0.61 0.60 - 1.10 [facility] mg/dL [facility] BUN/Creatinine Ratio 31.1 (H) 10.0 - 25.0 Sodium 137 135 - 145 meq/L Potassium 4.5 3.5 - 5.3 meq/L Chloride 108 99 - 110 meq/L CO2 24 20 - 29 meq/L Anion Gap with K 10 6 - 20 meq/L Calcium 7.9 (L) 8.5 - 10.5 [facility] mg/dL [facility] Protein Total 6.1 6.0 - 8.2 g/dL Albumin 3.3 (L) 3.5 - 5.0 g/dL Alkaline Phosphatase 55 30 - 150 U/L AST - SGOT 35 0 - 35 U/L ALT - SGPT 29 0 - 55 U/L Bilirubin Total 0.6 0.2 - 1.2 mg/dL Corrected Calcium 8.5 8.5 - 10.5 [facility] mg/dL [facility] Age 75 Years eGFR Non- >90 >=60 [facility] Maldivian mL/min/1.73m2 [facility] eGFR >90 >=60 [facility] mL/min/1.73m2 [facility] Specimen Blood - Blood specimen (specimen) Performing Organization Address City/[facility]/ZIP [facility] [place] Phon e Number [address] [address] GLUCOSE BY METER, POCT (04/08/2021 5:01 AM CDT) Pathologist Sig nature Glucose POC 127 (H) 70 - 99 mg/dL Specimen Blood - Blood specimen (specimen) Performing Organization Address [facility]/ZIP [facility] [place] Phon e Number [address] [address] GLUCOSE BY METER, POCT (04/07/2021 4:58 PM CDT) Pathologist Sig nature Glucose POC 201 (H) 70 - 99 mg/dL Specimen Blood - Blood specimen (specimen) Performing Organization Address [facility] Phon e Number [address] [address] OR PANEL 1 POCT (04/07/2021 3:11 PM CDT) Pathologist Sig nature pH Arterial POCT 7.32 (L) 7.35 - 7.45 pCO2 Arterial POCT 53 (H) 35 - 45 mmHg pO2 Arterial POCT 316 (H) 80 - 100 mmHg HCO3 (Bicarb) 27 20 - 29 mmol/L [facility] Arterial POCT CLINIC Base Excess Arterial 1 -2 - 2 meq/L [facility] O2 Sat % Arterial 100 (H) 95 - 98 % [facility] Ionized Calcium 1.11 (L) 1.12 - 1.32 [facility] mmol/L [facility] Sodium 138 135 - 145 meq/L Potassium 4.0 3.5 - 5.3 meq/L Glucose 177 (H) 70 - 99 mg/dL Hematocrit 32.0 (L) 35.0 - 45.0 % Hemoglobin 10.9 (L) 11.5 - 15.8 [facility] g/dL [facility] Specimen Source Arterial Specimen Blood - Blood specimen (specimen) Narrative Performed At DEVICE: FC_Anes Whole blood sample. Unable to evaluate for hemolysis. Performing Organization Address City/State/ZIP Code Phon e Number [address] [address] LAB ONLY-COMPLETE BLOOD COUNT WITH DIFFERENTIAL (04/07/2021 5:20 AM CDT) Pathologist Sig nature WBC 7.0 4.0 - 11.0 K/uL RBC 4.29 3.80 - 5.30 [facility] M/uL [facility] Hemoglobin 11.9 11.5 - 15.8 [facility] g/dL [facility] Hematocrit 38.5 35.0 - 45.0 % MCV 89.7 80.0 - 98.0 fL MCH 27.7 25.5 - 34.0 pg MCHC 30.9 (L) 31.5 - 36.5 [facility] g/dL [facility] RDW-CV 13.8 11.5 - 15.5 % RDW-SD 44.9 35.5 - 50.0 fl Platelet Count 228 140 - 400 K/uL MPV 10.4 8.5 - 12.0 fL Seg Neut Absolute 4.8 1.8 - 8.0 K/uL Lymphocytes Absolute 1.2 0.8 - 4.1 K/uL Monocytes Absolute 0.6 0.0 - 1.0 K/uL Eosinophils Absolute 0.3 0.0 - 0.7 K/uL Basophil Absolute 0.0 0.0 - 0.2 K/uL Immature Granulocyte 0.10 (H) 0.00 - 0.06 [facility] Absolute K/uL CLINIC Neutrophils Abs. 4,800 /uL [facility] (Segs and Bands) [facility] Neutrophils Percent 68.5 % Lymphocytes Percent 16.8 % Monocytes Percent 8.8 % Immature Granulocyte 1.4 % [facility] Percent CLINIC Eosinophils Percent 3.9 % Basophil Percent 0.6 % Nucleated RBC 0 /100 WBC's Specimen Blood - Blood specimen (specimen) Performing Organization Address City/[facility]/ZIP Code Phon e Number [address] [address] PHOSPHORUS (04/07/2021 5:20 AM CDT) Pathologist Sig nature Phosphorus 2.9 2.5 - 4.5 mg/dL Specimen Blood - Blood specimen (specimen) Performing Organization Address City/[facility]/ZIP Code Phon e Number [address] [address] MAGNESIUM (04/07/2021 5:20 AM CDT) Pathologist Sig nature Magnesium 2.4 1.8 - 2.4 mg/dL Specimen Blood - Blood specimen (specimen) Performing Organization Address City/[facility]/ZIP [facility] [place] Phon e Number [address] [address] [phone] COMPREHENSIVE METABOLIC PANEL (04/07/2021 5:20 AM CDT) Pathologist Sig nature Glucose 132 (H) 70 - 100 mg/dL BUN 23 (H) 6 - 22 mg/dL Creatinine 0.67 0.60 - 1.10 [facility] mg/dL [facility] BUN/Creatinine Ratio 34.3 (H) 10.0 - 25.0 Sodium 138 135 - 145 meq/L Potassium 4.3 3.5 - 5.3 meq/L Chloride 106 99 - 110 meq/L CO2 26 20 - 29 meq/L Anion Gap with K 10 6 - 20 meq/L Calcium 8.1 (L) 8.5 - 10.5 [facility] mg/dL [facility] Protein Total 6.5 6.0 - 8.2 g/dL Albumin 3.4 (L) 3.5 - 5.0 g/dL Alkaline Phosphatase 63 30 - 150 U/L AST - SGOT 25 0 - 35 U/L ALT - SGPT 17 0 - 55 U/L Bilirubin Total 0.5 0.2 - 1.2 mg/dL Corrected Calcium 8.6 8.5 - 10.5 [facility] mg/dL [facility] Age 75 Years eGFR Non- 86 >=60 [facility] Maldivian mL/min/1.73m2 [facility] eGFR >90 >=60 [facility] mL/min/1.73m2 [facility] Specimen Blood - Blood specimen (specimen) Performing Organization Address City/[facility] Phon e Number [address] [place] [address] TYPE AND SCREEN (04/06/2021 10:48 AM CDT) Pathologist Sig nature ABO Type A BLOOD BANK Rh Type Positive BLOOD BANK Antibody Screen Negative [facility] Comment: [facility] BLOOD BANK Allogenic Red Cells Available Date needed: 04/07/2021 Expiration Date 04/09/2021 23:59 BLOOD BANK Specimen Blood - Blood specimen (specimen) Performing Organization Address [facility] Phon e Number BLOOD BANK [address] [place], [place] [address] LAB ONLY-COMPLETE BLOOD COUNT WITH DIFFERENTIAL (04/06/2021 10:48 AM CDT) Pathologist Sig nature WBC 6.2 4.0 - 11.0 K/uL RBC 4.19 3.80 - 5.30 [facility] M/uL CLINIC Hemoglobin 12.0 11.5 - 15.8 [facility] g/dL CLINIC Hematocrit 37.6 35.0 - 45.0 % MCV 89.7 80.0 - 98.0 fL MCH 28.6 25.5 - 34.0 pg MCHC 31.9 31.5 - 36.5 [facility] g/dL CLINIC RDW-CV 13.7 11.5 - 15.5 % RDW-SD 44.2 35.5 - 50.0 fl Platelet Count 226 140 - 400 K/uL MPV 10.0 8.5 - 12.0 fL Seg Neut Absolute 4.3 1.8 - 8.0 K/uL Lymphocytes Absolute 1.0 0.8 - 4.1 K/uL Monocytes Absolute 0.5 0.0 - 1.0 K/uL Eosinophils Absolute 0.3 0.0 - 0.7 K/uL Basophil Absolute 0.0 0.0 - 0.2 K/uL Immature Granulocyte 0.11 (H) 0.00 - 0.06 [facility] Absolute K/uL CLINIC Neutrophils Abs. 4,300 /uL [facility] (Segs and Bands) [facility] Neutrophils Percent 68.9 % Lymphocytes Percent 15.7 % Monocytes Percent 8.5 % Immature Granulocyte 1.8 % [facility] Percent CLINIC Eosinophils Percent 4.6 % Basophil Percent 0.5 % Nucleated RBC 0 /100 WBC's Specimen Blood - Blood specimen (specimen) Performing Organization Address City/State/ZIP Code Phon e Number [address] [address] PHOSPHORUS (04/06/2021 10:48 AM CDT) Pathologist Sig nature Phosphorus 2.6 2.5 - 4.5 mg/dL Specimen Blood - Blood specimen (specimen) Performing Organization Address City/[facility]/ZIP Code Phon e Number [address] [place] [address] MAGNESIUM (04/06/2021 10:48 AM CDT) Pathologist Sig nature Magnesium 2.3 1.8 - 2.4 mg/dL Specimen Blood - Blood specimen (specimen) Performing Organization Address City/[facility]/ZIP Code Phon e Number [address] [place] [address] COMPREHENSIVE METABOLIC PANEL (04/06/2021 10:48 AM CDT) Pathologist Sig nature Glucose 122 (H) 70 - 100 mg/dL BUN 24 (H) 6 - 22 mg/dL Creatinine 0.65 0.60 - 1.10 [facility] mg/dL [facility] BUN/Creatinine Ratio 36.9 (H) 10.0 - 25.0 Sodium 139 135 - 145 meq/L Potassium 4.3 3.5 - 5.3 meq/L Chloride 109 99 - 110 meq/L CO2 24 20 - 29 meq/L Anion Gap with K 10 6 - 20 meq/L Calcium 8.0 (L) 8.5 - 10.5 [facility] mg/dL [facility] Protein Total 6.3 6.0 - 8.2 g/dL Albumin 3.3 (L) 3.5 - 5.0 g/dL Alkaline Phosphatase 57 30 - 150 U/L AST - SGOT 23 0 - 35 U/L ALT - SGPT 13 0 - 55 U/L Bilirubin Total 0.4 0.2 - 1.2 mg/dL Corrected Calcium 8.6 8.5 - 10.5 [facility] mg/dL [facility] Age 75 Years eGFR Non- 89 >=60 [facility] Maldivian mL/min/1.73m2 CLINIC eGFR >90 >=60 [facility] mL/min/1.73m2 CLINIC Specimen Blood - Blood specimen (specimen) Performing Organization Address City/State/ZIP Code Phon e Number [address] [place] [address] LAB ONLY-COMPLETE BLOOD COUNT WITH DIFFERENTIAL (04/05/2021 7:52 AM CDT) Pathologist Sig nature WBC 6.7 4.0 - 11.0 K/uL RBC 4.18 3.80 - 5.30 [facility] M/uL [facility] Hemoglobin 11.8 11.5 - 15.8 [facility] g/dL [facility] Hematocrit 37.5 35.0 - 45.0 % MCV 89.7 80.0 - 98.0 fL MCH 28.2 25.5 - 34.0 pg MCHC 31.5 31.5 - 36.5 [facility] g/dL [facility] RDW-CV 13.6 11.5 - 15.5 % RDW-SD 44.5 35.5 - 50.0 fl Platelet Count 240 140 - 400 K/uL MPV 9.9 8.5 - 12.0 fL Seg Neut Absolute 4.7 1.8 - 8.0 K/uL Lymphocytes Absolute 1.1 0.8 - 4.1 K/uL Monocytes Absolute 0.4 0.0 - 1.0 K/uL Eosinophils Absolute 0.3 0.0 - 0.7 K/uL Basophil Absolute 0.1 0.0 - 0.2 K/uL Immature Granulocyte 0.17 (H) 0.00 - 0.06 [facility] Absolute K/uL CLINIC Neutrophils Abs. 4,700 /uL [facility] (Segs and Bands) [facility] Neutrophils Percent 70.2 % Lymphocytes Percent 16.4 % Monocytes Percent 6.2 % Immature Granulocyte 2.6 % [facility] Percent CLINIC Eosinophils Percent 3.8 % Basophil Percent 0.8 % Nucleated RBC 0 /100 WBC's Specimen Blood - Blood specimen (specimen) Performing Organization Address City/[facility]/ZIP Code Phon e Number [address] [address] PHOSPHORUS (04/05/2021 7:52 AM CDT) Pathologist Sig nature Phosphorus 2.3 (L) 2.5 - 4.5 mg/dL Specimen Blood - Blood specimen (specimen) Performing Organization Address City/State/ZIP Code Phon e Number [address] [address] MAGNESIUM (04/05/2021 7:52 AM CDT) Pathologist Sig nature Magnesium 2.4 1.8 - 2.4 mg/dL Specimen Blood - Blood specimen (specimen) Performing Organization Address [facility] Phon e Number [address] [address] [phone] COMPREHENSIVE METABOLIC PANEL (04/05/2021 7:52 AM CDT) Pathologist Sig nature Glucose 125 (H) 70 - 100 mg/dL BUN 21 6 - 22 mg/dL Creatinine 0.62 0.60 - 1.10 [facility] mg/dL [facility] BUN/Creatinine Ratio 33.9 (H) 10.0 - 25.0 Sodium 140 135 - 145 meq/L Potassium 3.8 3.5 - 5.3 meq/L Chloride 109 99 - 110 meq/L CO2 24 20 - 29 meq/L Anion Gap with K 11 6 - 20 meq/L Calcium 8.2 (L) 8.5 - 10.5 [facility] mg/dL [facility] Protein Total 6.3 6.0 - 8.2 g/dL Albumin 3.3 (L) 3.5 - 5.0 g/dL Alkaline Phosphatase 58 30 - 150 U/L AST - SGOT 15 0 - 35 U/L ALT - SGPT 10 0 - 55 U/L Bilirubin Total 0.4 0.2 - 1.2 mg/dL Corrected Calcium 8.8 8.5 - 10.5 [facility] mg/dL [facility] Age 75 Years eGFR Non- >90 >=60 [facility] Maldivian mL/min/1.73m2 [facility] eGFR >90 >=60 [facility] mL/min/1.73m2 CLINIC Specimen Blood - Blood specimen (specimen) Performing Organization Address City/[facility] Phon e Number [address] [address] [phone] LAB ONLY-ABORH (04/05/2021 7:49 AM CDT) Pathologist Sig jake ABO Type A BLOO D BANK Rh Type Positive BLOO D BANK Specimen Blood - Blood specimen (specimen) Performing Organization Address City/[facility] Phon e Number BLOOD BANK [address] [place] [phone] LAB ONLY-COMPLETE BLOOD COUNT WITH DIFFERENTIAL (04/04/2021 5:13 AM CDT) Pathologist Sig jake WBC 5.7 4.0 - 11.0 K/uL RBC 4.18 3.80 - 5.30 [facility] M/uL [facility] Hemoglobin 12.0 11.5 - 15.8 [facility] g/dL [facility] Hematocrit 37.2 35.0 - 45.0 % MCV 89.0 80.0 - 98.0 fL MCH 28.7 25.5 - 34.0 pg MCHC 32.3 31.5 - 36.5 [facility] g/dL [facility] RDW-CV 13.3 11.5 - 15.5 % RDW-SD 43.0 35.5 - 50.0 fl Platelet Count 258 140 - 400 K/uL MPV 9.6 8.5 - 12.0 fL Seg Neut Absolute 3.9 1.8 - 8.0 K/uL Lymphocytes Absolute 0.9 0.8 - 4.1 K/uL Monocytes Absolute 0.6 0.0 - 1.0 K/uL Eosinophils Absolute 0.1 0.0 - 0.7 K/uL Basophil Absolute 0.0 0.0 - 0.2 K/uL Immature Granulocyte 0.21 (H) 0.00 - 0.06 [facility] Absolute K/uL CLINIC Neutrophils Abs. 3,900 /uL [facility] (Segs and Bands) [facility] Neutrophils Percent 68.9 % Lymphocytes Percent 15.0 % Monocytes Percent 10.3 % Immature Granulocyte 3.7 % [facility] Percent CLINIC Eosinophils Percent 1.6 % Basophil Percent 0.5 % Nucleated RBC 0 /100 WBC's Specimen Blood - Blood specimen (specimen) Performing Organization Address City/[facility]/ZIP Code Phon e Number [address] [address] [phone] PHOSPHORUS (04/04/2021 5:13 AM CDT) Pathologist Sig nature Phosphorus 3.8 2.5 - 4.5 mg/dL Specimen Blood - Blood specimen (specimen) Performing Organization Address City/[facility]/ZIP Code Phon e Number [address] [address] MAGNESIUM (04/04/2021 5:13 AM CDT) Pathologist Sig nature Magnesium 2.3 1.8 - 2.4 mg/dL Specimen Blood - Blood specimen (specimen) Performing Organization Address City/[facility]/ZIP Code Phon e Number [address] [address] COMPREHENSIVE METABOLIC PANEL (04/04/2021 5:13 AM CDT) Pathologist Sig nature Glucose 103 (H) 70 - 100 mg/dL BUN 14 6 - 22 mg/dL Creatinine 0.65 0.60 - 1.10 [facility] mg/dL CLINIC BUN/Creatinine Ratio 21.5 10.0 - 25.0 Sodium 142 135 - 145 meq/L Potassium 3.3 (L) 3.5 - 5.3 meq/L Chloride 109 99 - 110 meq/L CO2 26 20 - 29 meq/L Anion Gap with K 10 6 - 20 meq/L Calcium 8.0 (L) 8.5 - 10.5 [facility] mg/dL [facility] Protein Total 6.6 6.0 - 8.2 g/dL Albumin 3.4 (L) 3.5 - 5.0 g/dL Alkaline Phosphatase 62 30 - 150 U/L AST - SGOT 13 0 - 35 U/L ALT - SGPT 10 0 - 55 U/L Bilirubin Total 0.3 0.2 - 1.2 mg/dL Corrected Calcium 8.5 8.5 - 10.5 [facility] mg/dL [facility] Age 75 Years eGFR Non- 89 >=60 [facility] Maldivian mL/min/1.73m2 [facility] eGFR >90 >=60 [facility] mL/min/1.73m2 [facility] Specimen Blood - Blood specimen (specimen) Performing Organization Address City/State/ZIP Code Phon e Number [address] [place] [address] [phone] LAB ONLY-COMPLETE BLOOD COUNT WITH DIFFERENTIAL (04/03/2021 7:00 AM CDT) Pathologist Sig nature WBC 6.7 4.0 - 11.0 K/uL [address] RBC 3.63 (L) 3.80 - 5.[address] M/uL Hemoglobin 10.1 (L) 11.5 - 15.[address] g/dL Hematocrit 31.5 (L) 35.0 - 45.0 % [address] MCV 86.8 80.0 - 98.[address] MCH 27.8 25.5 - 34.[address] MCHC 32.1 31.5 - 36.[address] g/dL RDW-CV 12.9 11.5 - 15.5 % [address] RDW-SD 40.8 35.5 - 50.[address] Platelet Count 211 140 - 400 K/uL [address] MPV 9.6 8.5 - 12.[address] Seg Neut Absolute 5.0 1.8 - 8.0 K/uL [address] Lymphocytes Absolute 1.0 0.8 - 4.1 K/uL [place] [address] CLINI C Monocytes Absolute 0.6 0.0 - 1.0 K/uL [address] Eosinophils Absolute 0.1 0.0 - 0.7 K/uL [place] [address] CLINI C Basophil Absolute 0.0 0.0 - 0.2 K/uL [address] Immature Granulocyte 0.13 (H) 0.00 - 0.[address] Absolute K/uL Neutrophils Abs. 5,000 /uL [address] (Segs and Bands) Neutrophils Percent 74.4 % [address] Lymphocytes Percent 14.2 % [address] Monocytes Percent 8.2 % [address] Immature Granulocyte 1.9 % [address] Percent Eosinophils Percent 0.9 % [address] Basophil Percent 0.4 % [address] Nucleated RBC 0 /[address] Specimen Blood - Blood specimen (specimen) Performing Organization Address [facility] Phon e Number [place] [address] [facility]IN[address] [place] [phone] PHOSPHORUS (04/03/2021 7:00 AM CDT) Pathologist Sig nature Phosphorus 1.6 (L) 2.5 - 4.5 mg/dL [address] Specimen Blood - Blood specimen (specimen) Performing Organization Address [facility] Phon e Number [address] [place] [phone] MAGNESIUM (04/03/2021 7:00 AM CDT) Pathologist Sig nature Magnesium 2.2 1.8 - 2.4 mg/dL [address] Specimen Blood - Blood specimen (specimen) Performing Organization Address [facility] Phon e Number [place] [address] CLINIC [address], [place] [address] COMPREHENSIVE METABOLIC PANEL (04/03/2021 7:00 AM CDT) Pathologist Sig [facility] Glucose 117 (H) 70 - 100 mg/dL [address] BUN 11 6 - 22 mg/dL [address] Creatinine 0.65 0.60 - 1.[address] mg/dL BUN/Creatinine Ratio 16.9 10.0 - 25.[address] Sodium 141 135 - 145 meq/L [address] Potassium 3.1 (L) 3.5 - 5.3 meq/L [address] Chloride 109 99 - 110 meq/L [address] CO2 25 20 - 29 meq/L [address] Anion Gap with K 10 6 - 20 meq/L [address] Calcium 7.8 (L) 8.5 - 10.[address] mg/dL Protein Total 5.5 (L) 6.0 - 8.2 g/dL [address] Albumin 2.9 (L) 3.5 - 5.0 g/dL [address] Alkaline Phosphatase 56 30 - 150 U/L [address] AST - SGOT 13 0 - 35 U/L [address] ALT - SGPT 9 0 - 55 U/L [address] Bilirubin Total 0.2 0.2 - 1.2 mg/dL [address] Corrected Calcium 8.7 8.5 - 10.[address] mg/dL Age [address] eGFR Non- 89 >=[address] Maldivian mL/min/1.73m2 eGFR >90 >=[address] mL/min/1.73m2 Specimen Blood - Blood specimen (specimen) Performing Organization Address [facility] Phon e Number [place] [address] [facility]IN[facility] [address] [place] [address] MRI ABDOMEN WITH AND WITHOUT CONTRAST (04/02/2021 8:08 PM CDT) Specimen Narrative Performed At [facility] Patient Name: SABRINA SINGLETON Date of : 1945 Procedure: MRI ABDOMEN WITH AND WITHOUT CONTRAST Date of Service: 04/02/2021 EXAM: MRI ABDOMEN WITH AND WITHOUT CONTR AST INDICATION:Hepatobiliary cancer, staging , Duodenal mass TECHNIQUE: Multiplanar, multisequence MRI/MRCP of the abdomen per formed without and with intravenous contrast. COMPARISON(S): CT from 03/31/2021. FINDINGS: MRI abdomen: MRI of the abdomen is somewhat limited due to motion a rtifact. There is a small right pleural effusion. The liver is diffusely nodular in contour, most compatible with cirrhosis. No enhancing liver lesions are identified. There is very mild prominence of the intra hepatic bile ducts within segment 4 of the left hepatic lobe. The common bile duct is normal in caliber. No choledocholithiasis is identifie d. There is cholelithiasis. The gallbladder is decompressed. The s pleen is normal in size. The pancreas is unremarkable. No pancreatic duct al dilatation. The adrenal glands are unremarkable. There are hemorrhagic or proteinaceous cysts within the right and left kidneys. The largest r enal cyst is on the left and measures 1.7 cm. No hydrone phrosis. There is an enteric tube with its tip in the stomach. The stomach is decompressed. Circumferential thickening of the proxim al duodenum is again noted but is better characterized on the CT from 03/31/2021 due to motion artifact on MRI. The thickened portion of the p roximal duodenum appears to involve the ampulla. Additionally, there is no fat plane between the gallbladder and the second duodenum which raises suspicion for invasion of the gallbladder. The remaining visuali zed portions of the small and large bowel are unremarkable. No free fl uid within the abdomen. No abdominal lymphadenopathy is identified. W idespread osseous metastatic disease is again noted. MRCP: MRCP images are somewhat limited secondary to motion a rtifact. No significant intra or extrahepatic biliary ductal dilat ation. The common bile duct measures up to 5 to 6 mm. No choledocholithi asis. There is cholelithiasis. The gallbladder is nondistended. No pa ncreatic ductal dilatation. IMPRESSION: 1. Somewhat limited exam secondary to mo tion artifact. 2. Persistent circumferential thickening of the proxim al duodenum. Recent upper endoscopy showed malignant appearing sten osis of the proximal duodenum. The thickened proximal duodenum jeet ears to extend to the ampulla and likely encases the distal common bile duct and main pancreatic duct. No significant biliary ductal dilatat ion. The thickened proximal duodenum also abuts and possibl y invades the gallbladder. 3. Widespread osseous metastatic disease . 4. Cirrhosis of the liver. 5. Cholelithiasis. 6. Small right pleural effusion. 7. There is an enteric tube with its tip in the stomac h. The stomach is decompressed. Finalized by: Juan Good MD on 04/04 1:43 PM CDT Patient/Procedure Information: [facility] MRN/GEO: [id number] Order Number: [id number] Accession Number: [id number] Ordering Provider: STEFAN GERBER Authorizing Provider: ROCIO CRUM Procedure Note Alexa, Radiantres - 04/04/2021 1:45 PM CDT Patient Name: SABRINA SINGLETON Date of : 1945 Procedure: MRI ABDOMEN WITH AND WITHOUT CONTRAST Date of Service: 04/02/2021 EXAM: MRI ABDOMEN WITH AND WITHOUT CONTR AST INDICATION:Hepatobiliary cancer, staging , Duodenal mass TECHNIQUE: Multiplanar, multisequence MRI/MRCP of t he abdomen performed without and with intravenous contrast. COMPARISON(S): CT from 03/31/2021. FINDINGS: MRI abdomen: MRI of the abdomen is somewhat limited d ue to motion artifact. There is a small right pleural effusion. The liver is diffusely nodular in contour, most compatible with cirrhosis. No enhancing liver lesions are identified. There is very mild prominence of the int rahepatic bile ducts within segment 4 of the left hepatic lobe. The common bile duct is normal in caliber. No choledocholithiasis is identified. There is cholelithiasis. The gallbladder is decompressed. The spl een is normal in size. The pancreas is unremarkable. No pancreatic ductal dilatation. The adrenal glands are unremarkable. There are hemorrhagic or proteinaceous cysts within the right and left kidneys. The l argest renal cyst is on the left and measures 1.7 cm. No hydronephrosis. There is an enteric tube with its tip in the stomach. The stomach is decompressed. Circumferential thickening of the proximal duodenum is again noted but is better characterized on the CT from 03/31/2021 due to motion artifact on MRI. The thickened portion o f the proximal duodenum appears to involve the ampulla. Additionally, there is no fat plane between the gallbladder and the second duodenum which raises suspicion for invasion of the gallbladder. The remaining visualize d portions of the small and large bowel are unremarkable. No free fluid within the abdomen. No abdominal lymphadenopathy is identified. Widespread osseous metastatic disease is again noted. MRCP: MRCP images are somewhat limited seconda ry to motion artifact. No significant intra or extrahepatic biliary ductal dilatation. The common bile duct measures up to 5 to 6 mm. No choledocholithiasis. There is cholelithiasis. The gallbladder is nondi stended. No pancreatic ductal dilatation. IMPRESSION: 1. Somewhat limited exam secondary to mo tion artifact. 2. Persistent circumferential thickening of the proximal duodenum. Recent upper endoscopy showed malignant appearing stenosis of the proximal duodenum. The thickened proximal duodenum appears to extend to the ampulla and likely encases the distal common kaushik e duct and main pancreatic duct. No significant biliary ductal dilatation. The thickened proximal duodenum also abuts and possibly invades the gallbladder. 3. Widespread osseous metastatic disease . 4. Cirrhosis of the liver. 5. Cholelithiasis. 6. Small right pleural effusion. 7. There is an enteric tube with its tip in the stomach. The stomach is decompressed. Finalized by: Juan Good MD on 04/04 1:43 PM CDT Patient/Procedure Information: [facility] MRN/GEO: [id number] Order Number: [id number] Accession Number: [id number] Ordering Provider: STEFAN GERBER Authorizing Provider: ROCIO CRUM Performing Organization Address City/State/ZIP Code Phon e Number [id number] LAB ONLY-COMPLETE BLOOD COUNT WITH DIFFERENTIAL (04/02/2021 8:10 AM CDT) Pathologist Sig nature WBC 8.0 4.0 - 11.0 K/uL [address] RBC 3.64 (L) 3.80 - 5.[address] M/uL Hemoglobin 10.3 (L) 11.5 - 15.[address] g/dL Hematocrit 31.6 (L) 35.0 - 45.0 % [address] MCV 86.8 80.0 - 98.0 fL [facility] MCH 28.3 25.5 - 34.[address] MCHC 32.6 31.5 - 36.[address] g/dL RDW-CV 12.6 11.5 - 15.5 % [address] RDW-SD 40.1 35.5 - 50.[address] Platelet Count 242 140 - 400 K/uL [address] MPV 9.5 8.5 - 12.[address] Seg Neut Absolute 7.0 1.8 - 8.0 K/uL [address] Lymphocytes Absolute 0.6 (L) 0.8 - 4.1 K/uL [place] [address] [facility] Monocytes Absolute 0.4 0.0 - 1.0 K/uL [address] Eosinophils Absolute 0.0 0.0 - 0.7 K/uL [place] [address] [facility] Basophil Absolute 0.0 0.0 - 0.2 K/uL [address] Immature Granulocyte 0.09 (H) 0.00 - 0.[address] Absolute K/uL Neutrophils Abs. 7,000 /uL [address] (Segs and Bands) Neutrophils Percent 86.5 % [address] Lymphocytes Percent 7.2 % [address] Monocytes Percent 5.1 % [address] Immature Granulocyte 1.1 % [address] Percent Eosinophils Percent 0.0 % [address] Basophil Percent 0.1 % [place] [address] [facility] Nucleated RBC 0 /[address] Specimen Blood - Blood specimen (specimen) Performing Organization Address City/[facility]/ZIP Code Phon e Number [place] [address] [facility] 5225 [address] [place] [address] PHOSPHORUS (04/02/2021 8:10 AM CDT) Pathologist Sig nature Phosphorus 2.3 (L) 2.5 - 4.5 mg/dL [address] Specimen Blood - Blood specimen (specimen) Performing Organization Address City/[facility] Phon e Number [place] [address] [facility] 5225 [address] [place] [address] MAGNESIUM (04/02/2021 8:10 AM CDT) Pathologist Sig [facility] Magnesium 2.1 1.8 - 2.4 mg/dL [place] [address] [facility] Specimen Blood - Blood specimen (specimen) Performing Organization Address [facility] Phon e Number [place] [address] [facility] [address] [place] [address] COMPREHENSIVE METABOLIC PANEL (04/02/2021 8:10 AM CDT) Pathologist Sig [facility] Glucose 141 (H) 70 - 100 mg/dL [address] BUN 10 6 - 22 mg/dL [address] Creatinine 0.70 0.60 - 1.[address] mg/dL BUN/Creatinine Ratio 14.3 10.0 - 25.[address] Sodium 138 135 - 145 meq/L [address] Potassium 3.5 3.5 - 5.3 meq/L [address] Chloride 107 99 - 110 meq/L [address] CO2 22 20 - 29 meq/L [address] Anion Gap with K 13 6 - 20 meq/L [address] Calcium 8.0 (L) 8.5 - 10.[address] mg/dL Protein Total 6.0 6.0 - 8.2 g/dL [address] Albumin 3.2 (L) 3.5 - 5.0 g/dL [address] Alkaline Phosphatase 66 30 - 150 U/L [address] AST - SGOT 13 0 - 35 U/L [address] ALT - SGPT 9 0 - 55 U/L [address] Bilirubin Total 0.3 0.2 - 1.2 mg/dL [address] Corrected Calcium 8.6 8.5 - 10.5 [place] [address] [facility] mg/dL Age 75 Years [place] [address] [facility] eGFR Non- 82 >=[address] Maldivian mL/min/1.73m2 eGFR >90 >=[address] mL/min/1.73m2 Specimen Blood - Blood specimen (specimen) Performing Organization Address [facility] Phon e Number [place] [address] [facility] [address] [place] [address], [place] [address] GLUCOSE BY METER, POCT (04/01/2021 2:28 PM CDT) Pathologist Sig nature Glucose POC 95 70 - 99 mg/dL [facility] POINT OF CARE TESTING Specimen Blood - Blood specimen (specimen) Performing Organization Address City/State/ZIP Code Phon e Number [facility] [address] [place]elie Fernandez, [place] [address] 04 OF CARE TESTING TISSUE EXAM (04/01/2021 1:52 PM CDT) FINAL DIAGNOSIS A. DUODENUM, STRICTURE, BIOPSY: GEORGI Zeus GRAJEDA Electronically - Inflamed small intestinal mucosa with preserved villous architecture and prominent intraepithelial lymphocytes, see comment. [facility] signed by SUNIL Baptiste MD on 04/06/2021 at 10 :23 AM DIAGNOSIS COMMENT There is no evidence of carc inoma in these biopsies, which might be secondary to superficial sampling. Given the impression of a stricture, additional sampling might be helpful. Also, prominent intraepi [place] CHIARA thelial lymphocytes raise th e possibility of gluten-sensitive enteropathy (Celiac disease). If clinical suspicion for celiac disease exists, correlation with serologic studies is indicated. [facility] Intradepartmental consultation was obtained. AH/FS/YR GROSS DESCRIPTION [place] CHIARA Santillan Received in formalin labe led "duodenum stricture bxs r/o carcinoma" are multiple yellow-zimmer soft tissue fragment(s), 1.4 x 0.5 x 0.1 cm in greatest dimension. [facility] Entirely submitted as follows (1 block): A1 Entire specimen, bagged KS: MICROSCOPIC Microscopic examination performed. [facility] Zeus GRAJEDA DESCRIPTION [facility] CAM5.2 immunostain was perfo rmed with appropriate controls on block A1 and demonstrates no infiltrative glands or single cells. The immunostain result supports the rendered diagnosis. LABORATORY CASE REPORT Surgical Pathology Report Case: [id number] SA JUS GRAJEDA Authorizing Provider: Jose Johansen MD Collected: 04/01/2021 1352 TROY Ordering Location: [facility] 8AB Received: 04/01/2021 1420 LABORATORY MED SURG [facility] Pathologist: Timothy Baptiste MD Specimen: Duodenum, duo denum stricture bxs r/o carcinomna EMBEDDED IMAGES [facility] LABORATORY Specimen Tissue - Duodenal structure (body struct ure) Performing Organization Address [facility]/State/ZIP Code Phon e Number [place] CHI[facility] [address] [place] [place] [address] LABORATORY [address] ESOPHAGOGASTRODUODENOSCOPY (04/01/2021 1:29 PM CDT) Elza JACK [facility] Gastroenterology Lab Patient Name: Sabrina garcia Date: 04/01/2021 1:29 PM Acco unt Number: [id number] Date of : 1945 Admit Type : Inpatient Age: 75 G derrick: Female Surgeon: JOSE JOHANSEN MD Procedure: Upper GI endoscopy Indications: A bnormal CT of the GI tract, Suspected gastric outlet obstruction, Suspecte d duodenal obstruction Providers: JOSE JOHANSEN MD, KARENA ALLEN RN, GURVINDER PAREDES RN Medicines: General Anesthesia Complications: No immediate complications. Estimated Blood Loss: Estimated blood loss was minimal . Procedure: Pre-Anesthesia Assessment: - Prior to the procedure, a History and Physica l was performed, and patient medications a nd allergies were reviewed. The patient's tolerance of previous anesthesia was also r eviewed. The risks and benefits of the procedure and the sedation options and risks we re discussed with the patient. All question s were answered, and informed consent was obtained. Prior Anticoagulants: The patient has taken no previous anticoagulant or antiplatelet agents. ASA Grade Assessment : III - A patient with severe systemic disease. After reviewing the risks and benefits, the patient was deemed in satisfactory condition to undergo the procedure. After obtaining informed consent, the endoscope was passed under direct vision. Throughout the procedure, the pat ient's blood pressure, pulse, and oxygen saturations were monitored continuou sly. The Endoscope [id number] was introduced through the mouth, and a dvanced to the second part of duodenum. The upper GI endoscopy was ac complished without difficulty. The patient tolerated the procedure well. Findings: Food was found in the lower third of the esopha mary. A 4 cm hiatal hernia was present. A medium amount of food (residue) was found in the gastric fundus. Multiple dispersed, less than 5 mm non-bl eeding erosions were found in the entire examined stomach. Ther e were no stigmata of recent bleeding. Food (residue) was found in the duodenal bulb. An acquired malignant-appearing, intrinsic severe stenosis was found in the first portion of the duodenum and in the se cond portion of the duodenum and was traversed. Biops ies were taken with a cold forceps for histology. The examined jejunum was normal. NG tube as removed prior to proce dure and replaced at end of procedure, confirmed at 65cm at nares endoscopically throu gh the diaphragmatic hiatus. Impression: - Food in the lower third of the esophagus. - 4 cm hiatal hernia. - A medium amount of food (residue) in the stom ach. - Non-bleeding erosive gastropathy. - Retained food in the duodenum. 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 Biopsied. - Normal examined jejunum. Recommendation: - Await pathology results. - NG tube was replaced. Keep to LIS. - Consider start of TPN while awaiting pa thology as i do not think any enteral nutrition will pass the stomach and the patient needs ongoing gastric suction for obstruction. - If malignant, can consider repe at EGD for duodenal stent placement vs palliative gastric bypass. - GI will sign off. call with questions or clin ical deterioration. Jose Johansen MD JOSE JOHANSEN MD 04/01/2021 3:23:39 PM This report has been signed electronically.JOSE JOHANSEN MD Number of Addenda: 0 Note Initiated On: 04/01/2021 1:29 PM Total Procedure Duration Time 0 hours 25 minutes 53 se conds Scope In: 1:45:15 PM Scope Out: 2:11:08 PM Specimen GLUCOSE BY METER, POCT (04/01/2021 11:37 AM CDT) Pathologist Sig nature Glucose POC 75 70 - 99 mg/dL [facility] POINT OF CARE TESTING Specimen Blood - Blood specimen (specimen) Performing Organization Address [facility] Phon e Number [place] [address] 04 OF CARE TESTING GLUCOSE BY METER, POCT (04/01/2021 10:05 AM CDT) Pathologist Sig nature Glucose POC 60 (LL) 70 - 99 mg/dL [facility] POINT OF CARE TESTING Specimen Blood - Blood specimen (specimen) Performing Organization Address [facility] e Number [place] [address] 04 OF CARE TESTING LAB ONLY-COMPLETE BLOOD COUNT WITH DIFFERENTIAL (04/01/2021 7:40 AM CDT) Pathologist Sig nature WBC 5.3 4.0 - 11.0 K/uL [address] RBC 3.39 (L) 3.80 - 5.30 [place] [address] [facility] M/uL Hemoglobin 9.6 (L) 11.5 - 15.[address] g/dL Hematocrit 30.4 (L) 35.0 - 45.0 % [address] MCV 89.7 80.0 - 98.[address] MCH 28.3 25.5 - 34.[address] MCHC 31.6 31.5 - 36.[address] g/dL RDW-CV 12.9 11.5 - 15.5 % [address] RDW-SD 42.5 35.5 - 50.[address] Platelet Count 197 140 - 400 K/uL [address] MPV 9.6 8.5 - 12.[address] Seg Neut Absolute 3.9 1.8 - 8.0 K/uL [address] Lymphocytes Absolute 0.7 (L) 0.8 - 4.1 K/uL [place] [address] [facility] Monocytes Absolute 0.5 0.0 - 1.0 K/uL [address] Eosinophils Absolute 0.1 0.0 - 0.7 K/uL [place] [address] [facility] Basophil Absolute 0.1 0.0 - 0.2 K/uL [address] Immature Granulocyte 0.04 0.00 - 0.06 [place] [address] [facility] Absolute K/uL Neutrophils Abs. 3,900 /uL [address] (Segs and Bands) Neutrophils Percent 74.1 % [address] Lymphocytes Percent 12.8 % [address] Monocytes Percent 9.1 % [address] Immature Granulocyte 0.8 % [address] Percent Eosinophils Percent 2.3 % [address] Basophil Percent 0.9 % [address] Nucleated RBC 0 /[address] Specimen Blood - Blood specimen (specimen) Performing Organization Address [facility] Phon e Number [address] [place] [address] PHOSPHORUS (04/01/2021 7:40 AM CDT) Pathologist Sig nature Phosphorus 4.2 2.5 - 4.5 mg/dL [address] Specimen Blood - Blood specimen (specimen) Performing Organization Address [facility] Phon e Number [address] [place] [address] MAGNESIUM (04/01/2021 7:40 AM CDT) Pathologist Sig nature Magnesium 2.0 1.8 - 2.4 mg/dL [address] Specimen Blood - Blood specimen (specimen) Performing Organization Address [facility] Phon e [address] [place] [address] COMPREHENSIVE METABOLIC PANEL (04/01/2021 7:40 AM CDT) Pathologist Sig nature Glucose 66 (L) 70 - 100 mg/dL [address] BUN 14 6 - 22 mg/dL [address] Creatinine 0.68 0.60 - 1.[address] mg/dL BUN/Creatinine Ratio 20.6 10.0 - 25.[address] Sodium 140 135 - 145 meq/L [address] Potassium 3.8 3.5 - 5.3 meq/L [address] Chloride 107 99 - 110 meq/L [address] CO2 20 20 - 29 meq/L [address] Anion Gap with K 17 6 - 20 meq/L [address] Calcium 8.4 (L) 8.5 - 10.[address] mg/dL Protein Total 5.7 (L) 6.0 - 8.2 g/dL [address] Albumin 3.0 (L) 3.5 - 5.0 g/dL [address] Alkaline Phosphatase 62 30 - 150 U/L [address] AST - SGOT 13 0 - 35 U/L [address] ALT - SGPT 9 0 - 55 U/L [address] Bilirubin Total 0.6 0.2 - 1.2 mg/dL [address] Corrected Calcium 9.2 8.5 - 10.[address] mg/dL Age [address] eGFR Non- 85 >=[address] Maldivian mL/min/1.73m2 eGFR >90 >=[address] mL/min/1.73m2 Specimen Blood - Blood specimen (specimen) Performing Organization Address City/State/ZIP Code Phon e Number [address] [place] [address] XRAY CHEST PORTABLE - (04/01/2021 1:52 AM CDT) Specimen Narrative Performed At This result has an attachment that is no t available. [id number] Patient Name: SABRINA SINGLETON Date of : 1945 Procedure: XRAY CHEST PORTABLE Date of Service: 04/01/2021 EXAM: XRAY CHEST PORTABLE INDICATION: NG tube placement COMPARISON(S): CT performed 03/31/2021 and chest radiograph 02/23/2021 FINDINGS: Lungs: Hazy increased density at the rig ht base represents posteriorly layering pleural fluid. Lung apices are off the edge of the film. Heart: The heart is generous in size.. Pleura: Right pleural effusion.. Mediastinum/leydi: Normal in size and contour. Vascular: There is pulmonary vascular congestion.. Osseous: There is degenerative changes o f the spine. Multifocal areas of sclerosis noted throughout the spine suggests metastases. Soft tissue: Unremarkable. Other: There is a left-sided port cathet er present, tip terminates in the upper atrium. Oral gastric tube has been placed, tip terminates in t he stomach.. IMPRESSION: 1. Left-sided port catheter and nasogastric tubes are present. 2. Right pleural effusion. 3. Cardiomegaly and pulmonary vascular congestion evid ent. 4. Osseous metastases. Finalized by: Micheal San MD on 04/01/2021 2:00 AM CD T Patient/Procedure Information: [facility] MRN/GEO: [id number] Order Number: [id number] Accession Number: [id number] Ordering Provider: FAVIAN RUBIN Authorizing Provider: FAVIAN RUBIN Procedure Note Interface, Radiantres - 04/01/2021 2:02 AM CDT Patient Name: SABRINA SINGLETON Date of : 1945 Procedure: XRAY CHEST PORTABLE Date of Service: 04/01/2021 EXAM: XRAY CHEST PORTABLE INDICATION: NG tube placement COMPARISON(S): CT performed 03/31/2021 and chest radiogra ph 02/23/2021 FINDINGS: Lungs: Hazy increased density at the rig ht base represents posteriorly layering pleural fluid. Lung apices are off the edge of the film. Heart: The heart is generous in size.. Pleura: Right pleural effusion.. Mediastinum/leydi: Normal in size and con tour. Vascular: There is pulmonary vascular co ngestion.. Osseous: There is degenerative changes o f the spine. Multifocal areas of sclerosis noted throughout the spine suggests metastases. Soft tissue: Unremarkable. Other: There is a left-sided port cathet er present, tip terminates in the upper atrium. Oral gastric tube has been placed, tip t erminates in the stomach.. IMPRESSION: 1. Left-sided port catheter and nasogast johnny tubes are present. 2. Right pleural effusion. 3. Cardiomegaly and pulmonary vascular c ongestion evident. 4. Osseous metastases. Finalized by: Micheal San MD on 021 2:00 AM CDT Patient/Procedure Information: [facility] MRN/GEO: [id number] Order Number: [id number] Accession Number: [id number] Ordering Provider: FVAIAN RUBIN Authorizing Provider: FAVIAN RUBIN Performing Organization Address City/State/ZIP Code Phon e Number [id number] US ABDOMEN LIMITED (03/31/2021 5:37 PM CDT) Specimen Narrative Performed At This result has an attachment that is no t available. PS360 Patient Name: SABRINA SINGLETON Date of : 1945 Procedure: US ABDOMEN LIMITED Date of Service: 03/31/2021 EXAM: US ABDOMEN LIMITED INDICATION: Female, 75 years year old patient, acute N/V with known cholelithiasis COMPARISON(S): 03/12/[address] abdomen and pelvis TECHNIQUE: Ultrasound evaluation of t he right upper quadrant was performed with real-time and static valencia-scale imaging. FINDINGS: Vessel: Main portal vein is patent. Liver: Hepatic parenchymal morphologic c hanges suggest chronic underlying disease, liver is heterogeneous in echotexture with macro nodularity noted about the surface consistent with cirrhosis. No focal hepatic lesion identified within the se nsitivity of ultrasound. A small cyst identified within the left lobe on CT is not well appreciated on this scan.. Gallbladder: The gallbladder is contract ed. Within the gallbladder, there is multiple shadowing stones. Wall appears to be thickened up to 5.5 mm, in part related to its contracted status. No gallbladde r wall striation or pericholecystic free fluid is seen. Aircraft Restorer reports absence of a sonographic Hampton's sign. Common Bile Duct (C.B.D.): The common bi le duct measures 6 mm, upper limits of normal for age. Pancreas: Not well seen due to overlying bowel gas art ifact. Right Kidney: Normal size of the right k idney. The right kidney measures 10.4 cm. Normal renal cortex. There is no demonstrated renal mass. There is a 12 mm simple cyst present. There is no right hydronephrosis. IMPRESSION: 1. Cirrhotic hepatic morphology. No focal lesion. 2. Cholelithiasis. Gallbladder wall thic kening in part relates to contracted status of the gallbladder. The presence of chronic cholecystitis not excluded. No features of acute cholecystitis suggested sonographically. 3. Upper limits normal common bile duct measuring 6 mm. No intrahepatic ductal dilatation is seen.. 4. Simple appearing right renal cyst. 5. Poor visualization of the pancreas. Finalized by: Micheal San MD on 03/31/2021 7:17 PM CDT Patient/Procedure Information: [facility] MRN/GEO: [id number] Order Number: [id number] Accession Number: [id number] Ordering Provider: LIZZ MCDUFFIE Authorizing Provider: FAVIAN RUBIN Procedure Note Interface, Radiantres - 03/31/2021 7:19 PM CDT Patient Name: SABRINA SINGLETON Date of : 1945 Procedure: US ABDOMEN LIMITED Date of Service: 03/31/2021 EXAM: US ABDOMEN LIMITED INDICATION: Female, 75 years year old p atient, acute N/V with known cholelithiasis COMPARISON(S): 03/12/[address] abdomen and pelvis 03/31/2021 TECHNIQUE: Ultrasound evaluation of th e right upper quadrant was performed with real-time and static valencia-scale imaging. FINDINGS: Vessel: Main portal vein is patent. Liver: Hepatic parenchymal morphologic c hanges suggest chronic underlying disease, liver is heterogeneous in echotexture with macro nodularity noted about the surface consistent with cirrhosis. No focal hepatic lesion identified within the sensitivity of ult rasound. A small cyst identified within the left lobe on CT is not well appreciated on this scan.. Gallbladder: The gallbladder is contract ed. Within the gallbladder, there is multiple shadowing stones. Wall appears to be thickened up to 5.5 mm, in part related to its contracted status. No gallbladder wall striation or pericholecystic free fluid is seen. Sono grapher reports absence of a sonographic Hampton's sign. Common Bile Duct (C.B.D.): The common bi le duct measures 6 mm, upper limits of normal for age. Pancreas: Not well seen due to overlying bowel gas artifact. Right Kidney: Normal size of the right k idney. The right kidney measures 10.4 cm. Normal renal cortex. There is no demonstrated renal mass. There is a 12 mm simple cyst present. There is no right hydronephrosis. IMPRESSION: 1. Cirrhotic hepatic morphology. No foca l lesion. 2. Cholelithiasis. Gallbladder wall thic kening in part relates to contracted status of the gallbladder. The presence of chronic cholecystitis not excluded. No features of acute cholecystitis suggested sonographically. 3. Upper limits normal common bile duct measuring 6 mm. No intrahepatic ductal dilatation is seen.. 4. Simple appearing right renal cyst. 5. Poor visualization of the pancreas. Finalized by: Micheal San MD on 03/31/20 7:17 PM CDT Patient/Procedure Information: [facility] MRN/GEO: [id number] Order Number: [id number] Accession Number: [id number] Ordering Provider: LIZZ MCDUFFIE Authorizing Provider: FAVIAN RUBIN Performing Organization Address [facility]/ZIP Code Phon e Number [id number] LACTIC ACID REFLEX TO REPEAT (03/31/2021 4:21 PM CDT) Pathologist Sig nature Lactic Acid 0.7 0.5 - 2.2 mmol/L [address] Specimen Blood - Blood specimen (specimen) Performing Organization Address City/[facility] Code Phon e Number [place] [address] [facility] [address] [place] [address], [place] [address] LAB ONLY-URINE MICROSCOPIC REFLEX (03/31/2021 12:30 PM CDT) WBC Urine 0-5 /hpf Negative, 0-5 [place] [address] /hpf CLINIC RBC Urine 0-2 /hpf Negative, 0-2 [place] [address] /hpf CLINIC Squamous Few (11-20) /lpf Negative, Occ [place] [address] Epithelial Cells (0-10) /lpf, Few CLINIC (11-20) /lpf Bacteria Negative Negative [address] Hyaline Cast 0-2 /lpf 0-2 /lpf [address] Specimen Urine - Urine specimen obtained by clean catch procedure (specimen) Narrative Performed At Culture not performed - reflex criteria not met. [address] Culture is only performed when the urine macroscopic c olor is reported as Bright [facility] [employer], or whentwoor more of th e following criteria are met: Positive Nitrite, Positive Leukocyte Esterase, WBC's > 5 cells/hpf. Performing Organization Address [facility] Phon e Number [place] [address] [facility] [address] [place] [address] URINE DIP, REFLEX TO MICROSCOPIC, REFLEX TO CULTURE (03/31/2021 12:30 PM CDT) Color Urine Straw Chiara, Dark [place] [address] Yellow, Straw, CLINIC Yellow, Colorless Clarity Urine Clear Clear [address] Glucose Urine Negative Negative [address] Bilirubin Urine Negative Negative [address] Ketones Urine 10 mg/dL Negative, 5 [place] [address] mg/dL, 10 mg/dL CLINIC Specific [place] 1.019 1.002 - 1.[address] Blood Urine Negative Negative [address] PH Urine 5.5 5.0, 5.5, 6.0, [place] [address] 6.5, 7.0, 7.5, CLINIC 8.0 Protein Urine Negative Negative [address] Urobilinogen < 2 mg/dL < 2 mg/dL [address] Nitrite Negative Negative [address] Leukocyte Esterase Small (1+) (A) Negative [place] [address] Urine CLINIC Specimen Urine - Urine specimen obtained by clean catch procedure (specimen) Narrative Performed At Microscopic Exam Reflexed [address] Performing Organization Address [facility] Phon e Number [place] [address] [facility] [address] [place] [address] ABDOM[address] PELVIS WITH CONTRAST (03/31/2021 11:46 AM CDT) Specimen Narrative Performed At This result has an attachment that is no t available. PS360 Patient Name: SABRINA SINGLETON Date of : 1945 Procedure: CT ABDOMEN PELVIS WITH CONTRAST Date of Service: 03/31/2021 EXAM: CT ABDOMEN PELVIS WITH CONTRAST INDICATION:nausea-loose stools TECHNIQUE: CT of the abdomen and pelvis performed a fter administration of intravenous contrast. COMPARISON(S): CT from 03/03/2021. FINDINGS: There is a small right pleural effusion with associated right lower lung atelectasis. The lung bases are otherwise clear. The liver is diffusely irregular in contour, compatible with cirrhosis. No liver lesions are identified. No biliary duct al dilatation. There is cholelithiasis. The gallbladder is decompressed. The spleen is near the upper limits of normal in size. The pancreas and adrenal glands ar e normal. There are bilateral simple appearing renal c ysts. No hydronephrosis. The stomach is moderately distended with fluid. There is circumferential thickening of an approximately 7 cm long segment of the proximal duodenum which is new when compared with the prior CT from 2020. The remainder of the small and lar ge bowel is unremarkable. No free fluid or free air. No pathologically enlarged abdominal lymph nodes. The abdominal aorta is atherosclerotic and nonaneurysmal. The urinary bladder is distended and oth erwise unremarkable. There are numerous scattered calcified uterine fibroids. No pelvic lymphadenopathy. There is diffuse osseous metastatic disease. Nodularity w ithin the right breast likely relates to the patient's known history of breast cancer. IMPRESSION: 1. Long segment circumferential thickeni ng of the proximal duodenum which is new when compared with the prior exam from 4 weeks ago. The stomach is distended with fluid and duodenal thickening may be ca using partial small bowel obstruction. D uodenal thickening is favored to be related to peptic ulcer disease or infection. Neoplasm would also be a consideration but seems less likely given the normal ap pearance of the proximal duodenum on the exam from 4 weeks ago. Gastroenterology consultation is recommended. 2. Nodularity within the right breast wh ich may relate to patient's known history of right-sided breast cancer. Diffuse osseous metastatic disease is again noted. 3. Cholelithiasis without evidence of acute cholecysti tis. 4. Cirrhosis of the liver. 5. Leiomyomatous uterus. 6. Small right pleural effusion. Finalized by: Juan Good MD on 03/31/2021 12:45 PM CDT Patient/Procedure Information: [facility] MRN/GEO: [id number] Order Number: [id number] Accession Number: [id number] Ordering Provider: SOFÍA BECKHAM Authorizing Provider: SOFÍA BECKHAM Procedure Note Alexa, Radiantres - 03/31/2021 12:47 PM CDT Patient Name: SABRINA SINGLETON Date of : 1945 Procedure: CT ABDOMEN PELVIS WITH CONTR AST Date of Service: 03/31/2021 EXAM: CT ABDOMEN PELVIS WITH CONTRAST INDICATION:nausea-loose stools TECHNIQUE: CT of the abdomen and pelvis performed a fter administration of intravenous contrast. COMPARISON(S): CT from 03/03/2021. FINDINGS: There is a small right pleural effusion with associated right lower lung atelectasis. The lung bases are otherwise clear. The liver is diffusely irregular in contour, compatible with cirrhosis. No liver lesions are identified. No biliary ductal dilatation . There is cholelithiasis. The gallbladder is decompressed. The spleen is near the upper limits of normal in size. The pancreas and adrenal glands are normal. There are bilateral simple appearing renal cysts. No hydrone phrosis. The stomach is moderately distended with fluid. There is circumferential thickening of an approximately 7 cm long segment of the proximal duodenum which is new when compared with the prior CT from 03/03/2021. The remainder of the small and large bowel is unremark able. No free fluid or free air. No pathologically enlarged abdominal lymph nodes. The abdominal aorta is atherosclerotic and nonaneurysmal. The urinary bladder is distended and oth erwise unremarkable. There are numerous scattered calcified uterine fibroids. No pelvic lymphadenopathy. There is diffuse osseous metastatic disease. Nodularity within the right breast likely relates to the patient's k nown history of breast cancer. IMPRESSION: 1. Long segment circumferential thickeni ng of the proximal duodenum which is new when compared with the prior exam from 4 weeks ago. The stomach is distended with fluid and duodenal thickening may be causing partial small bowel obstruction. Duodenal thickening i s favored to be related to peptic ulcer disease or infection. Neoplasm would also be a consideration but seems less likely given the normal appearance of the proximal duodenum on the exam from 4 weeks ago. Gastroenterol ogy consultation is recommended. 2. Nodularity within the right breast wh ich may relate to patient's known history of right-sided breast cancer. Diffuse osseous metastatic disease is again noted. 3. Cholelithiasis without evidence of ac roberto cholecystitis. 4. Cirrhosis of the liver. 5. Leiomyomatous uterus. 6. Small right pleural effusion. Finalized by: Juan Good MD on 2020 12:45 PM CDT Patient/Procedure Information: [facility] MRN/GEO: [id number] Order Number: [id number] Accession Number: [id number] Ordering Provider: SOFÍA BECKHAM Authorizing Provider: SOFÍA BECKHAM Performing Organization Address [facility] Phon e Number [id number] TROPONIN I (03/31/2021 10:41 AM CDT) Pathologist Sig nature Troponin I 0.003 0.000 - 0.028 ng/mL [address] Specimen Blood - Blood specimen (specimen) Performing Organization Address [facility] Phon e Number [place] [id number] [facility] [address] [place] [id number] LIPASE (03/31/2021 10:41 AM CDT) Pathologist Sig nature Lipase 44 5 - 80 U/L [address] Specimen Blood - Blood specimen (specimen) Performing Organization Address [facility] Phon e Number [place] [address] [facility] [address] [place] [address], [place] [address] COMPREHENSIVE METABOLIC PANEL (03/31/2021 10:41 AM CDT) Pathologist Sig nature Glucose 91 70 - 100 mg/dL [place] [address] [facility] BUN 10 6 - 22 mg/dL [address] Creatinine 0.68 0.60 - 1.[address] mg/dL BUN/Creatinine Ratio 14.7 10.0 - 25.[address] Sodium 137 135 - 145 meq/L [place] [address] [facility] Potassium 3.6 3.5 - 5.3 meq/L [address] Chloride 103 99 - 110 meq/L [place] [address] [facility] CO2 22 20 - 29 meq/L [address] Anion Gap with K 16 6 - 20 meq/L [address] Calcium 9.4 8.5 - 10.5 [place] [address] [facility] mg/dL Protein Total 6.5 6.0 - 8.2 g/dL [address] Albumin 3.3 (L) 3.5 - 5.0 g/dL [place] [address] [facility] Alkaline Phosphatase 71 30 - 150 U/L [place] [address] [facility] AST - SGOT 14 0 - 35 U/L [address] ALT - SGPT 9 0 - 55 U/L [place] [address] [facility] Bilirubin Total 0.7 0.2 - 1.2 mg/dL [place] [address] [facility] Corrected Calcium 10.0 8.5 - 10.[address] mg/dL Age [address] eGFR Non- 85 >=[address] Mal[place] mL/min/1.73m2 eGFR >90 >=[address] mL/min/1.73m2 Specimen Blood - Blood specimen (specimen) Performing Organization Address [facility] e Number [address] [place] [id number] COMPLETE BLOOD COUNT WITHOUT DIFFERENTIAL (03/31/2021 10:41 AM CDT) Pathologist Sig [facility] WBC 6.1 4.0 - 11.0 K/uL [address] RBC 3.74 (L) 3.80 - 5.30 M/uL [address] Hemoglobin 10.5 (L) 11.5 - 15.8 g/dL [address] Hematocrit 32.4 (L) 35.0 - 45.0 % [address] MCV 86.6 80.0 - 98.[address] MCH 28.1 25.5 - 34.[address] MCHC 32.4 31.5 - 36.5 g/dL [address] RDW-CV 13.0 11.5 - 15.5 % [address] RDW-SD 41.4 35.5 - 50.[address] Platelet Count 206 140 - 400 K/uL [address] MPV 9.6 8.5 - 12.[address] Specimen Blood - Blood specimen (specimen) Performing Organization Address [facility] e Number [address] [place] [id number] EKG (03/31/2021 10:17 AM CDT) Pathologist Sig nature EKG [facility] Normal sinus rhythm Left axis deviation Nonspecific T wave abnormality Abnormal ECG Ventricular Rate: 74 BPM Atrial Rate: 74 BPM P-R Interval: 168 ms QRS Duration: 86 ms Q-T Interval: 370 ms QTc Calculation(Bazett): 410 ms Calculated P [place]: 62 degrees Calculated R [place]: -42 degrees Calculated T [place]: 59 degrees Specimen Narrative Performed At This result has an attachment that is no t available. Performing Organization Address City/State/ZIP Code Phon e Number [facility] documented in this encounter Visit Diagnoses Diagnosis Duodenal obstruction - Primary Other obstruction of duodenum Nausea Nausea alone Abnormal abdominal CT scan Nonspecific (abnormal) findings on radio logical and other examination of abdominal area, including retroperitoneum Duodenal anomaly Gastric outlet obstruction Acquired hypertrophic pyloric stenosis Bowel obstruction (HCC) Unspecified intestinal obstruction Malignant neoplasm of overlapping sites of right breast in female, estrogen receptor positive (HCC) documented in this encounter Discharge Diagnoses Not on filedocumented in this encounter Administered Medications Medication Order MAR Action Action Date Dose Rate Site acetaminophen (TYLENOL) tablet Given 04/14/2021 5:14 AM CDT 1,0 00 mg 1,000 mg 1,000 mg, Oral, Every eight hours, First dose on 04/08/21 at 0800, Until Discontinued, Total dose of acetaminophen from all acetaminophen containing products should not exceed 4 grams (4000 mg) per day. Given 04/13/2021 9:32 PM CDT 1,000 mg Given 04/13/2021 3:03 PM CDT 1,000 mg diphenhydrAMINE (BENADRYL) injection gail ution 12.5 mg 12.5 mg, IV, One time prn, 1 dose, Starting on 03/23 at 1638, Until Discontinued, nausea, vomiting, 0.25 mL, Nausea/vomiti ng orders if not on intrathecal/epidural If Zofran given L ESS than 4 hours ago: 1. Give Compazine 5 mg IV one time prn 2. If Compazine not effective in 15 min, give Benadryl 12.5 mg IV one time prn 3. If Benadryl not effe ctive in 15 min, give Zofran 4 mg IV one time prn If Zofran given GREATER than 4 hours ago: 1 . Give Zofran 4 mg IV one time prn 2. If Zofran not effective in 15 min, give Compazine 5 mg IV one time prn 3. If Compazine not effective in 15 min, give Benadry l 12.5 mg IV one time prn Use only anesthesia's orders for nausea/ vomiting while in PACU or recovery care If preference is to further dilute for IV administration: First draw up patient-specific dose, then dilute to 10 mL with 0.9% sodium chloride. enoxaparin (LOVENOX) subcutaneous injection Given 04/14/2021 8:08 AM CDT 40 mg solution 40 mg 40 mg, Subcutaneous, Daily, First dose on Sat04/08/21 at 0900, Until Discontinued, To avoid the loss of drug when using the 30 mg and 40 mg prefilled syringes, do not expel the air bubble from the syringe before the injection. For ADULT patients: Administration should be alternated between the left and right anterolateral and left and right posterolateral abdominal wall. The whole length of the needle should be introduced into a skin fold held between the thumb and forefinger; the skin fold should be held throughout the injection. To minimize bruising, do not rub the injection site after completion of the injection. For PEDIATRIC patients: Administration should be alternated between appropriate sites for patient age/weight (infants/small children = upper thigh; older children/adolescents = left and right anterolateral and left and right posterolateral abdominal wall). During administration to infants/smaller children sometimes the whole length of the needle is not "introduced" during the injection. Administer injection into a skin fold held between the thumb and forefinger; the skin fold should be held throughout the injection. To minimize bruising, do not rub the injection site after completion of the injection. Given 04/13/2021 10:19 AM CDT 40 mg Given 04/12/2021 10:07 AM CDT 40 mg famotidine (PEPCID) tablet 20 mg Given 04/14/2021 8:08 AM CDT 20 mg 20 mg, Oral, Daily, First dose on Sat04/14/21 at 0900, Until Discontinued guaiFENesin (ROBITUSSIN) oral solution (100 Given 04/13/2021 6:45 PM CDT 10 mL mg/5 mL) 10 mL 10 mL, Oral, Every six hours prn, Starting on Sat04/12/21 at 0008, Until Discontinued, cough, 10 mL hEParin 100 units/ mL injection for Given 03/31/2021 5:09 PM CD T 500 Units heplock FLUSH 500 Units (5 mL), IV, PRN per parameter, Starting on Sat03/31/21 at 1549, Until Discontinued, other (Specify), See admin instructions, 5 mL, Flush IMPLANTED VENOUS ACCESS DEVICE before removing needle; re-access and flush site at least every 4 weeks or per specific provider order if not accessed. Use a push / pause technique when flushing to create turbulence. hydrALAZINE (APRESOLINE) injection solut ion 10 mg 10 mg, IV, Every four hours prn, Starting on Sat at 1136, Until Discontinued, specified parameter, sbp>160, 0.5 mL hydrocortisone (HYTONE) 1 % cream affected area, Two times a day prn, Starting on Yennifer at 0706, Until Discontinued, itching HYDROmorphone (DILAUDID) injection solut ion (conc: 1 mg/mL) 1 mg 1 mg, IV, Every two hours prn, Starting on Sat04/10/21 at 0713, Until Discontinued, breakthrough pain, 1 mL lactase (LACTAID) tablet 9,000 Units Given 04/14/2021 8:07 AM CDT 9,000 Units 9,000 Units, Oral, Three times a day with meals, First dose on Sat04/10/21 at 1730, Until Discontinued, Administer with the first bite of food containing dairy. Given 04/13/2021 5:52 PM CDT 9,000 Units Given 04/13/2021 12:15 PM CDT 9,000 Units letrozole (FEMARA) tablet 2.5 mg Given 04/14/2021 8:08 AM CDT 2.5 mg 2.5 mg, Oral, DAILY, First dose on Sat04/12/21 at 0900, Until Discontinued, This medication is a high risk hazardous drug. Wear 2 pairs of chemo gloves for administration. If administering oral liquid or sublingual, also wear a chemo gown and face shield if there is a possibility of splashing. If unable to administer dose intact - contact pharmacy or reference policy for other administration options. Dispose of empty packages in the yellow hazardous container. Dispose of unused or partial packages in the black waste container and label must be marked as containing chemotherapy as outlined by the region. Given 04/13/2021 10:19 AM CDT 2.5 mg Given 04/12/2021 9:57 AM CDT 2.5 mg LORazepam (ATIVAN) 2 mg/mL injection solution Given 9:35 PM CDT 1 mg 1 mg 1 mg, IV, Bedtime prn, Starting on Sat04/04/21 at 1610, Until Discontinued, other (Specify), insomnia, 0.5 mL, If preference is to further dilute for IV administration: First draw up patient-specific dose, then dilute with EQUAL VOLUME of 0.9% sodium chloride Given 04/12/2021 8:01 PM CDT 1 mg Given 04/11/2021 10:15 PM CDT 1 mg melatonin tablet 3 mg Given 03/31/2021 10:08 PM CDT 3 mg 3 mg, Oral, Bedtime prn, Starting on Sat03/31/21 at 1521, Until Discontinued, other (Specify), insomnia, Use FIRST for insomnia. If inadequate response in 60 minutes, may proceed to next choice option or, if no other options, contact provider. metoclopramide (REGLAN) tablet 5 mg Given 04/14/2021 10:28 AM CDT 5 mg 5 mg, Oral, Before meals and at bedtime, First dose on Sat04/13/21 at 1600, Until Discontinued Given 04/14/2021 5:15 AM CDT 5 mg Given 04/13/2021 9:33 PM CDT 5 mg nalOXone (NARCAN) injection solution (vi al) 0.2 mg 0.2 mg, Injection, Every two minutes prn, Starting on Sat03/31/21 at 1518, Until Discontinued, other (Specify), opioid induced respirat ory depression - PARTIAL reversal, 0.5 mL, PARTIAL REVERSAL/RESPI RATORY DEPRESSION If respiratory rate less than 8/minute - call rapid response and administer (un til respiratory rate increases to 10/minute). Give IV (preferred), IM or S UBQ nalOXone (NARCAN) injection solution (vi al) 0.4 mg 0.4 mg, Injection, Every two minutes prn, Starting on Sat03/31/21 at 1518, Until Discontinued, other (Specify), opioid in duced respiratory arrest - FULL reversal, 1 mL, FULL REVERSAL/RESPIRATORY ARREST If patient is not breathing - call CODE BLUE and administer. Give IV (preferred), IM or SUBQ ondansetron (ZOFRAN ODT) dispersible tablet 4 Given 2:16 AM CDT 4 mg mg 4 mg, Oral, Four times a day prn, Starting on Sat03/31/21 at 1521, Until Discontinued, nausea, vomiting, Use FIRST for nausea / vomiting. If ineffective after 30 minutes use ondansetron IV ondansetron (ZOFRAN) injection solution 4 mg Given 04/12/2021 11:55 PM CDT 4 mg 4 mg, IV, Four times a day prn, Starting on Sat03/31/21 at 1521, Until Discontinued, nausea, vomiting, 2 mL, Use SECOND for nausea / vomiting. If ineffective after 30 minutes and ondansetron ODT used, call physician for alternative. If preference is to further dilute for IV administration: First draw up patient-specific dose, then dilute to 10 mL with 0.9% sodium chloride. Given 04/09/2021 12:42 AM CDT 4 mg Given 04/08/2021 4:20 AM CDT 4 mg oxyCODONE (OXY-IR) tablet 10 mg Given 04/14/2021 5:20 AM CDT 10 mg 10 mg, Oral, Every four hours prn, Starting on Sat04/10/21 at 0713, Until Discontinued, moderate pain Given 04/13/2021 9:33 PM CDT 10 mg Given 04/12/2021 5:50 PM CDT 10 mg phenol (CHLORASEPTIC) 1.4 % liquid/spray 2 spray 2 spray, Mouth/Throat, Every two hours p rn, Starting on Sat04/03/21 at 1110, Until Discontinued, sore throat, 177 mL, Ok to keep at bedsi de polyethylene glycol (MIRALAX) packet 1 p acket 1 packet, Oral, Two times a day prn, Starting on Sat at 1326, Until Discontinued, constipation, Dissolve in 8 ounces of water, juice, soda, coffee, tea Do NOT give if patient on thickened liqu ids. Contact provider for alternative if needed. promethazine (PHENERGAN) tablet 25 mg Given 04/08/2021 8:02 AM CDT 25 mg 25 mg, Oral, Every four hours prn, Starting on Sat04/08/21 at 0640, Until Discontinued, nausea, vomiting scopolamine (TRANSDERM-SCOP) Applied 04/10/2021 6:28 PM CDT 1 pat ch Right Ear patch 1 patch 1 patch, Transdermal, Every three days, First dose on Sat04/10/21 at 1730, Until Discontinued, Administer over 3 Days sodium chloride 0.9% flush (adult) 10 mL Given 04/14/2021 8:12 AM CDT 10 mL 10 mL, IV, Two times a day and prn, First dose on Sat03/31/21 at 2100, Until Discontinued, 10 mL, Flush PIV line as scheduled and as often as necessary before and after meds. Use a push / pause technique when flushing to create turbulence. Given 04/13/2021 9:35 PM CDT 10 mL Given 04/12/2021 8:03 PM CDT 10 mL sodium chloride 0.9% flush (adult) 10 mL Given 04/14/2021 8:23 AM CDT 10 mL 10 mL, IV, Daily and prn, First dose on 04/01/21 at 0900, Until Discontinued, 10 mL, Flush IMPLANTED VENOUS ACCESS DEVICE unused lumens as scheduled and as often as necessary before and after meds. Flush with saline prior to Heparin when de-accessing. Use a push / pause technique when flushing to create turbulence. Given 04/13/2021 10:20 AM CDT 10 mL Given 04/12/2021 10:04 AM CDT 10 mL tiZANidine (ZANAFLEX) tablet 2 mg Given 04/09/2021 9:13 PM CDT 2 mg 2 mg, Oral, Three times a day, First dose on Sat04/07/21 at 2100, Until Discontinued Given 04/08/2021 8:22 AM CDT 2 mg Given 04/07/2021 8:38 PM CDT 2 mg Medication Order MAR Action Action Date Dose Rate Site acetaminophen (TYLENOL) tablet Given 04/07/2021 8:07 PM CDT 650 mg 650 mg 650 mg, Oral, Every four hours prn, Starting on Sat03/31/21 at 1521, Until 04/08/21 at 1017, mild pain, Use FIRST for mild pain. If inadequate response in 60 minutes, may proceed to next choice option or if no other options, contact provider. Adult patients: Total dose of acetaminophen from all acetaminophen containing products should not exceed 4 grams (4000 mg) per day. Pediatric Patients 0 - 3 months: Maximum of 60 mg/kg/24 hours of acetaminophen. Pediatric Patients older than 3 months: Maximum of 75 mg/kg/24 hours of acetaminophen (Never exceeding 4 grams/day). Given 03/31/2021 10:08 PM CDT 650 mg dextrose 5%-sodium chloride 0.45% IV New Bag 04/02/2021 2:29 PM C DT 75 mL/hr solution IV, at 75 mL/hr, Continuous, Starting on 04/01/21 at 1100, Until 04/03/21 at 1106, 1,000 mL New Bag 04/02/2021 1:27 AM CDT 75 mL/hr New Bag 04/01/2021 10:10 AM CDT 75 mL/hr famotidine (PEPCID) IV solution 20 mg Given 04/13/2021 10:26 AM CDT 20 mg 20 mg, IV, Daily, First dose on Sat04/10/21 at 1400, Until Discontinued, 2 mL, First draw up patient specific dose, then dilute to 10 mL with 0.9% sodium chloride and administer over 2 minutes. Given 04/12/2021 9:56 AM CDT 20 mg Given 04/11/2021 11:33 AM CDT 20 mg fentaNYL 100 mcg/2 mL preservative free Given 04/07/2021 5:28 P M CDT 50 mcg injection solution 50 mcg 50 mcg, IV, Every five minutes prn, 6 doses, Starting on Sat04/07/21 at 1638, Until Sat04/07/21 at 1810, other (Specify), moderate pain scale 4-6 or severe pain above 7 if hydromorphone not ordered (max dose of 300 mcg), 1 mL, PACU, Use only anesthesia's orders for moderate or severe pain while in PACU or recovery care Pain stratification is defined as follows for either analog scale (0-10) or critical care pain observation tool (CPOT, 0-8). a. No pain (0) b. Mild pain level (1-3) c. Moderate pain level (4-6) d. Severe pain level (greater than or equal to 7) gadobutrol (GADAVIST) 1 MMOL/ML solution 7.5 Given 8:10 PM CDT 7 mL mL 7.5 mL, IV, Now imaging, 1 dose, Starting on Sat04/02/21 at 2008, Until 04/02/21 at 2010, 7.5 mL heparin (porcine) injection solution Given 04/06/2021 6:52 AM C DT 5,000 Units 5,000 Units 5,000 Units, Subcutaneous, Every eight hours, First dose on Sat04/05/21 at 1400, Until Discontinued, 1 mL Given 04/05/2021 9:10 PM CDT 5,000 Units Given 04/05/2021 1:55 PM CDT 5,000 Units HYDROcodone-acetaminophen (NORCO) 5-325 mg Given 04/01 3:39 AM CDT 1 tablet tablet 1 tablet 1 tablet, Oral, One time, 1 dose, On 04/01/21 at 0255, Total dose of acetaminophen from all acetaminophen containing products should not exceed 4 grams (4000 mg) per day. HYDROcodone-acetaminophen (NORCO) 5-325 mg Given 04/01 9:49 PM CDT 1 tablet tablet 1 tablet 1 tablet, Oral, One time, 1 dose, On 04/01/21 at 2105, Total dose of acetaminophen from all acetaminophen containing products should not exceed 4 grams (4000 mg) per day. HYDROmorphone (DILAUDID) injection solution Given 04/08/2021 6: 00 AM CDT 1 mg (conc: 1 mg/mL) 0.5-1 mg 0.5-1 mg, IV, Every three hours prn, Starting on 04/02/21 at 1806, Until 04/08/21 at 0719, moderate pain, severe pain, 0.5 mg for moderate 1 mg for severe, 1 mL Given 04/08/2021 1:54 AM CDT 1 mg Given 04/07/2021 10:32 PM CDT 1 mg HYDROmorphone WAXER (DILAUDID) 0.4 mg/mL in Rate Verify 04/10/2021 7:2 3 AM CDT 0.9% sodium chloride syringe IV, Continuous, Starting on 04/08/21 at 1120, Until 04/10/21 at 0714, 25 mL, WAXER Dose: 0.2 mg Lockout Interval: 10 minutes Continuous Dose: None mg/hr Max Limit in 4h: 4 mg Loading Dose: 0.25 mg Do not give loading dose if pain score 6 or less Document on WAXER flowsheet. If pain control is inadequate (defined as pain unrelieved per patient report after 3 doses), change to: WAXER Dose: 0.2 mg Lockout Interval: 8 minutes Continuous Dose: None mg/hr NEVER use extension tubing with a WAXER for MRI. Instead call the provider to obtain prn pain meds or to consider a sedated MRI. Rate Verify 04/09/2021 7:13 PM CDT Rate Verify 04/09/2021 7:31 AM CDT iohexol (OMNIPAQUE) 350 mg/mL solution 1 00 mL Given 03/31/2021 11:47 AM CDT 82 mL 100 mL, IV, Now imaging, 1 dose, Starting on Sat03/31/21 at 1146, Until Sat03/31/21 at 1147, 100 mL lactated ringers IV solution New Bag 04/01/2021 6:30 AM CDT 75 mL/hr IV, at 75 mL/hr, Continuous, Starting on Sat03/31/21 at 1625, Until 04/01/21 at 0956, 1,000 mL New Bag 03/31/2021 5:09 PM CDT 75 mL/hr lactated ringers IV solution Already Infusing 04/01/2021 2:31 PM CDT 125 mL/hr IV, at 125 mL/hr, Continuous, Starting on 04/01/21 at 1450, Until 04/01/21 at 1638, 1,000 mL, PACU, TKO current fluids if patient is going to Day Unit / ARU and tolerating PO fluids without nausea. lactated ringers IV solution Already Infusing 04/07/2021 5:18 PM CDT 125 mL/hr IV, at 125 mL/hr, Continuous, Starting on Sat04/07/21 at 1700, Until Sat04/07/21 at 1810, 1,000 mL, PACU, TKO current fluids if patient is going to Day Unit / ARU and tolerating PO fluids without nausea. LORazepam (ATIVAN) 2 mg/mL injection solution Given 2:28 AM CDT 1 mg 1 mg 1 mg, IV, One time, 1 dose, On Sat04/05/21 at 0155, 0.5 mL, If preference is to further dilute for IV administration: First draw up patient-specific dose, then dilute with EQUAL VOLUME of 0.9% sodium chloride metoclopramide (REGLAN) inj soln 5 mg Given 04/13/2021 10:19 AM CDT 5 mg 5 mg, IV, Four times a day, First dose on 04/08/21 at 1030, Until Discontinued, 2 mL, If preference is to further dilute for IV administration: First draw up patient-specific dose, then dilute to 10 mL with 0.9% sodium chloride. Given 04/12/2021 8:01 PM CDT 5 mg Given 04/12/2021 5:30 PM CDT 5 mg ondansetron (ZOFRAN) injection solution 4 mg Given 03/31/2021 12:02 PM CDT 4 mg 4 mg, IV, Every fifteen minutes prn, 3 doses, Starting on Sat03/31/21 at 1014, Until Sat03/31/21 at 1202, nausea, 2 mL, If preference is to further dilute for IV administration: First draw up patient-specific dose, then dilute to 10 mL with 0.9% sodium chloride. Given 03/31/2021 10:41 AM CDT 4 mg phenol (CHLORASEPTIC) 1.4 % liquid/spray 2 Given 04/02 2:30 PM CDT 2 sprays spray 2 spray, Mouth/Throat, Every four hours prn, Starting on 04/01/21 at 1051, Until 04/03/21 at 1106, sore throat, 177 mL Given 04/01/2021 9:50 PM CDT 2 sprays potassium & sodium phosphates (PHOS-NaK) Given 04/11/2021 10 :15 AM CDT 1 packet 280-160-250 MG packet 1 packet 1 packet, Oral, One time, 1 dose, On 04/11/21 at 1030, Contents of packet should be dissolved in 75 ml water. Stir well and take promptly. potassium & sodium phosphates (PHOS-NaK) Given 021 9:52 AM CDT 2 packets 280-160-250 MG packet 2 packet 2 packet, Oral, Now, 1 dose, On 04/02/21 at 0925, Contents of packet should be dissolved in 75 ml water. Stir well and take promptly. potassium chloride 40 mEq in dextrose 5% 500 Given 08/2021 10:16 PM CDT 40 mEq mL 40 mEq, IV, Now, 1 dose, On Sat04/03/21 at 0940, 500 mL, Peripheral line potassium chloride 40 mEq in dextrose 5% 500 Given 8:35 AM CDT 40 mEq mL 40 mEq, IV, Now, 1 dose, On Sat04/04/21 at 0800, 500 mL, Infuse at 10 mEq per hour. May increase to 20 mEq per hour if patient is on telemetry. potassium phosphate 15 mmol in dextrose 5% Given 04/05 4:49 PM CDT 15 mmol 250 mL 15 mmol, IV, One time, 1 dose, On Sat04/05/21 at 1230, 250 mL, *15 mmol of kphos contains 22 meq of potassium. Maximum rate 10 meq/hr of potassium (6.8 mmol/hr) if patient is not on telemetry, and 20 meq/hr if patient is on telemetry (13.6 mmol/hr), please choose duration accordingly. prochlorperazine (COMPAZINE) 10 mg/2 mL Given 04/07/2021 5:01 P M CDT 5 mg injection solution 5 mg 5 mg, IV, One time prn, 1 dose, Starting on Sat04/07/21 at 1638, Until Sat04/07/21 at 1701, nausea, vomiting, 1 mL, PACU, Nausea/vomiting orders if not on intrathecal/epidural If Zofran given LESS than 4 hours ago: 1. Give Compazine 5 mg IV one time prn 2. If Compazine not effective in 15 min, give Benadryl 12.5 mg IV one time prn 3. If Benadryl not effective in 15 min, give Zofran 4 mg IV one time prn If Zofran given GREATER than 4 hours ago: 1. Give Zofran 4 mg IV one time prn 2. If Zofran not effective in 15 min, give Compazine 5 mg IV one time prn 3. If Compazine not effective in 15 min, give Benadryl 12.5 mg IV one time prn Use only anesthesia's orders for nausea/vomiting while in PACU or recovery care senna-docusate sodium Given 04/11/2021 9:10 AM CDT 1 tablet (SENOKOT-S;PERICOLACE) tablet 1 tablet 1 tablet, Oral, Two times a day, First dose on Sat04/10/21 at 2100, Until Discontinued Given 04/10/2021 8:19 PM CDT 1 tablet sodium chloride 0.9% (bolus) IV solution Given 03/31/2021 10 :41 AM CDT 1,000 mL 1,000 mL 1,000 mL, IV, Now, 1 dose, On Sat03/31/21 at 1020, 1,000 mL sodium chloride 0.9% IV solution New Bag 04/10/2021 9:47 AM CDT 50 mL/hr IV, at 50 mL/hr, Continuous, Starting on 04/08/21 at 0905, Until Sat04/11/21 at 0625, 1,000 mL New Bag 04/09/2021 10:33 AM CDT 50 mL/hr New Bag 04/08/2021 8:22 AM CDT 50 mL/hr sodium phosphates 15 mmol in dextrose 5% Given 04/08/2021 10:13 AM CDT 15 mmol 250 mL 15 mmol, IV, Now, 1 dose, On Sat04/08/21 at 0900, 250 mL sodium phosphates 15 mmol in dextrose 5% Given 04/09/2021 10:33 AM CDT 15 mmol 250 mL 15 mmol, IV, Now, 1 dose, On Sat04/09/21 at 1000, 250 mL sodium phosphates 30 mmol in dextrose 5% Given 04/03/2021 10:16 PM CDT 30 mmol 250 mL 30 mmol, IV, Now, 1 dose, On Sat04/03/21 at 0940, 250 mL TPN (parenteral nutrition (ADULTS Rate Change 04/04/2021 9:00 AM CDT 46.3 mL/hr AND CHILDREN 40kg or GREATER) IV, DAILY, 1 dose, First dose (after last modification) on Sat04/02/21 at 1700, Filter needed for administration. (1.2 micron filter for TPN with lipids; 0.22 micron filter for TPN without lipids). TPNs with lipids, tubing and cap (needleless connector) should be changed every 24 hours. Administer TPN at 46.31 ml/hour over 24 hours. New Bag 04/02/2021 8:38 PM CDT 46.31 mL/hr TPN (parenteral nutrition (ADULTS AND New Bag 04/03/2021 6:40 PM CDT 47.6 mL/hr CHILDREN 40kg or GREATER) IV, DAILY, 1 dose, First dose (after last reorder) on Sat04/03/21 at 1700, Filter needed for administration. (1.2 micron filter for TPN with lipids; 0.22 micron filter for TPN without lipids). TPNs with lipids, tubing and cap (needleless connector) should be changed every 24 hours. Administer TPN at 47.56 ml/hour over 24 hours. TPN (parenteral nutrition (ADULTS AND New Bag 04/04/2021 5:25 PM CDT 54.6 mL/hr CHILDREN 40kg or GREATER) IV, DAILY, 1 dose, First dose (after last reorder) on Sat04/04/21 at 1700, Filter needed for administration. (1.2 micron filter for TPN with lipids; 0.22 micron filter for TPN without lipids). TPNs with lipids, tubing and cap (needleless connector) should be changed every 24 hours. Administer TPN at 54.58 ml/hour over 24 hours. TPN (parenteral nutrition (ADULTS AND New Bag 04/05/2021 6:26 PM CDT 60.8 mL/hr CHILDREN 40kg or GREATER) IV, DAILY, 1 dose, First dose (after last reorder) on Sat04/05/21 at 1700, Filter needed for administration. (1.2 micron filter for TPN with lipids; 0.22 micron filter for TPN without lipids). TPNs with lipids, tubing and cap (needleless connector) should be changed every 24 hours. Administer TPN at 60.8 ml/hour over 24 hours. TPN (parenteral nutrition (ADULTS AND New Bag 04/06/2021 7:25 PM CDT 60.6 mL/hr CHILDREN 40kg or GREATER) IV, DAILY, 1 dose, First dose (after last reorder) on Sat04/06/21 at 1700, Filter needed for administration. (1.2 micron filter for TPN with lipids; 0.22 micron filter for TPN without lipids). TPNs with lipids, tubing and cap (needleless connector) should be changed every 24 hours. Administer TPN at 60.6 ml/hour over 24 hours. TPN (parenteral nutrition (ADULTS AND New Bag 04/07/2021 5:48 PM CDT 60.6 mL/hr CHILDREN 40kg or GREATER) IV, DAILY, 1 dose, First dose (after last reorder) on Sat04/07/21 at 1700, Filter needed for administration. (1.2 micron filter for TPN with lipids; 0.22 micron filter for TPN without lipids). TPNs with lipids, tubing and cap (needleless connector) should be changed every 24 hours. Administer TPN at 60.6 ml/hour over 24 hours. TPN (parenteral nutrition (ADULTS AND New Bag 04/08/2021 5:30 PM CDT 61 mL/hr CHILDREN 40kg or GREATER) IV, DAILY, 1 dose, First dose (after last reorder) on Sat04/08/21 at 1700, Filter needed for administration. (1.2 micron filter for TPN with lipids; 0.22 micron filter for TPN without lipids). TPNs with lipids, tubing and cap (needleless connector) should be changed every 24 hours. Administer TPN at 60.6 ml/hour over 24 hours. TPN (parenteral nutrition (ADULTS AND New Bag 04/09/2021 5:46 PM CDT 61 mL/hr CHILDREN 40kg or GREATER) IV, DAILY, 1 dose, First dose (after last reorder) on Sat04/09/21 at 1700, Filter needed for administration. (1.2 micron filter for TPN with lipids; 0.22 micron filter for TPN without lipids). TPNs with lipids, tubing and cap (needleless connector) should be changed every 24 hours. Administer TPN at 60.6 ml/hour over 24 hours. TPN (parenteral nutrition (ADULTS AND New Bag 04/10/2021 5:26 PM CDT 32.34 mL/hr CHILDREN 40kg or GREATER) IV, DAILY, 1 dose, First dose (after last reorder) on Sat04/10/21 at 1700, Filter needed for administration. (1.2 micron filter for TPN with lipids; 0.22 micron filter for TPN without lipids). TPNs with lipids, tubing and cap (needleless connector) should be changed every 24 hours. Administer TPN at 60.6 ml/hour over 24 hours. TPN (parenteral nutrition (ADULTS AND New Bag 04/11/2021 6:02 PM CDT 32.3 mL/hr CHILDREN 40kg or GREATER) IV, DAILY, 1 dose, First dose (after last reorder) on Sat04/11/21 at 1700, Filter needed for administration. (1.2 micron filter for TPN with lipids; 0.22 micron filter for TPN without lipids). TPNs with lipids, tubing and cap (needleless connector) should be changed every 24 hours. Administer TPN at 32.34 ml/hour over 24 hours. documented in this encounter Active and Recently Administered Medications Times are shown in CDT. Medication Order 04/12/2021 04/13/2021 04/14/2021 acetaminophen (TYLENOL) tablet 1,000 mg 0451 (Given - Provider: Bebe Armenta, RN)1514 (Given - Provider: Niecy Davidson RN)2136 (Given - Provider: Bebe Armenta RN) 0600 (Given - Provider: Bbee Armenta RN)1503 (Given - Provider: Lindsay Jansen, YAMILEX)2132 (Given - Provider: Katrina Darnell RN) 0514 (Given - Provider: Mikayla Rey RN)1400 (Due)2200 (Due) 1,000 mg, Oral, Every eight hours, First dose on 04/08/21 at 0800, Until Discontinued, Total dose of acetaminophen from all acetaminophen containing products should not exceed 4 grams (4000 mg) per day. enoxaparin (LOVENOX) subcutaneous injection solution 4 0 mg 1007 (Given - Provider: Niecy Davidson RN) 1019 (Given - Provider: Lindsay Jansen RN) 0808 (Given - Provider: Heather Adair RN) 40 mg, Subcutaneous, Daily, First dose o n 04/08/21 at 0900, Until Discontinued, To avoid the loss of drug when using the 30 mg and 40 mg prefilled syringes, do not expel the air bubble from the syrin ge before the injection. For ADULT pat ients: Administration should be alternated between the left and right anterolateral and left and right posterolateral abdominal wall. The whole length of the need le should be introduced into a skin fold held between the thumb and forefinger; the skin fold should be held throughout the injection. To minimize bruising, do not rub the injection site after completio n of the injection. For PEDIATRIC pat ients: Administration should be alternated between appropriate sites for patient age/weight (infants/small children = upper thigh; older children/adolescents = le ft and right anterolateral and left and right posterolateral abdominal wall). During administration to infants/smaller children sometimes the whole length of the needle is not "introduced" during the in jection. Administer injection into a ski n fold held between the thumb and forefinger; the skin fold should be held throughout the injection. To minimize bruising, do not rub the injection site after completion of the injection. famotidine (PEPCID) IV solution 20 mg (CANCELED) 0956 (Given - Provider: Niecy Davidson RN) 1026 (Given - Provider: Lindsay Jansen RN) 20 mg, IV, Daily, First dose on 04/10 at 1400, Until Discontinued, 2 mL, First draw up patient specific dose, then dilute to 10 mL with 0.9% sodium chloride and administer over 2 minutes. famotidine (PEPCID) tablet 20 mg 0808 (Given - Provider: Heather Adair RN) 20 mg, Oral, Daily, First dose on Sat04/14/21 at 0900, Until Dis continued lactase (LACTAID) tablet 9,000 Units 0955 (Given - Pro vider: Niecy Davidson RN)1300 (Given - Provider: Niecy Davidson RN)1730 (Given - Provider: Niecy Davidson RN) 0910 (Given - Provider: Lindsay hernandez RN)1215 (Given - Provider: Lindsay Jansen RN)1752 (Given - Provider: Lindsay Jansen RN) 0807 (Given - Provider: Heather Adair RN)1029 (Refused - Provider: Shana Brown RN)1730 (Due) 9,000 Units, Oral, Three times a day wit h meals, First dose on Sat04/10/21 at 1730, Until Discontinued, Administer with the first bite of food containing dairy. letrozole (FEMARA) tablet 2.5 mg 0957 (Given - Provider: Yi Davidson RN) 1019 (Given - Provider: Lindsay Jansen RN) 0808 (Given - Provider: Heather Adair, YAMILEX) 2.5 mg, Oral, DAILY, First dose on Sat at 0900, Until Discontinued, This medication is a high risk hazardous drug. Wear 2 pairs of chemo gloves for administration. If administering oral liquid o r sublingual, also wear a chemo gown and face shield if there is a possibility of splashing. If unable to administer dose intact - contact pharmacy or reference policy for other administration options. Dispose of empty packages in the yellow hazardous container. Dispose of unused or partial packages in the black waste container and label must be marked as containing chemotherapy as outlined by the region. metoclopramide (REGLAN) inj soln 5 mg (CANCELED) 0954 (Given - Provider: Niecy Davidson, YAMILEX)1300 (Given - Provider: Niecy Davidson RN)1730 (Given - Provider: Niecy Davidson, YAMILEX)2000 (Given - Provider: Bebe Armenta RN) 1019 (Given - Provider: Lindsay Jansen RN) 5 mg, IV, Four times a day, First dose o n 04/08/21 at 1030, Until Discontinued, 2 mL, If preference is to further dilute for IV administration: First draw up patient-specific dose, then dilute to 10 mL with 0.9% sodium chloride. metoclopramide (REGLAN) tablet 5 mg 1515 (Given - Provider: Lindsay Jansen RN)2133 (Given - Provider: Katrina Darnell, YAMILEX) 0515 (Given - Provider: Mikayla Rey, YAMILEX)1028 (Given - Provider: Shana Brown, YAMILEX)1700 (Due)2100 (Due) 5 mg, Oral, Before meals and at bedtime, First dose on Sat04/13/21 at 1600, Until Discontinued scopolamine (TRANSDERM-SCOP) patch 1 patch 1755 (Remove - Provider: Lindsay Jansen, YAMILEX)175 (Refused - Provider: Lindsay Jansen RN) 1 patch, Transdermal, Every three days, First dose on 7/19/21 at 1730, Until Discontinued, Administer over 3 Days sodium chloride 0.9% flush (adult) 10 mL 1004 (Not Ind icated - Provider: Niecy Davidson RN - Comment: infusing)2002 (Given - Provider: Bebe Armenta RN) 1020 (Duplicate Entry - Provider: Lindsay Jansen RN)2135 (Given - Provider: Katrina Darnell RN) 0812 (Given - Provider: Chandana Beltran)2100 (Due) 10 mL, IV, Two times a day and prn, Firs t dose on Sat03/31/21 at 2100, Until Discontinued, 10 mL, Flush PIV line as scheduled and as often as necessary before and after meds. Use a push / pause technique when flushing to create turbulence. sodium chloride 0.9% flush (adult) 10 mL(Linked Group 1) 1004 (Given - Provider: Niecy Davidson RN) 1020 (Given - Provider: Lindsay Jansen RN) 08 (Given - Provider: Heather Adair RN) 10 mL, IV, Daily and prn, First dose on Sat04/01/21 at 0900, Until Discontinued, 10 mL, Flush IMPLANTED VENOUS ACCESS DEVICE unused lumens as scheduled and as often as necessary before and after meds. F lush with saline prior to Heparin when d e-accessing. Use a push / pause technique when flushing to create turbulence. tiZANidine (ZANAFLEX) tablet 2 mg 1005 (Refused - Prov ider: Niecy Davidson RN)1514 (Refused - Provider: Niecy Davidson RN)2002 (Refused - Provider: Bebe Armenta RN) 1018 (Refused - Provider: Lindsay quintero RN)1522 (Refused - Provider: Lindsay Jansen RN)212 (Refused - Provider: Mikayla Rey RN) 0811 (Refused - Provider: Heather Adair RN)1500 (Due)2100 (Due) 2 mg, Oral, Three times a day, First dos e on Sat04/07/21 at 2100, Until Discontinued Medication Order 04/12/2021 04/13/2021 04/14/2021 diphenhydrAMINE (BENADRYL) injection solution 12.5 mg 12.5 mg, IV, One time prn, 1 dose, Start ing on Sat04/07/21 at 1638, Until Discontinued, nausea, vomiting, 0.25 mL, Nausea/vomiting orders if not on intrathecal/epidural If Zofran given LESS than 4 sue rs ago: 1. Give Compazine 5 mg IV one t vandana prn 2. If Compazine not effective in 15 min, give Benadryl 12.5 mg IV one time prn 3. If Benadryl not effective in 15 min, give Zofran 4 mg IV one time prn If Zofran given GREATER than 4 hours ag o: 1. Give Zofran 4 mg IV one time prn 2. If Zofran not effective in 15 min, give Compazine 5 mg IV one time prn 3. If Compazine not effective in 15 min, give Benadryl 12.5 mg IV one time prn Use on ly anesthesia's orders for nausea/vomiting while in PACU or recovery care If preference is to further dilute for IV administration: First draw up patient-specific dose, then dilute to 10 mL with 0.9% sodium chloride. guaiFENesin (ROBITUSSIN) oral solution (100 mg/5 mL) 10 mL 1845 (Given - Provider: Lindsay Jansen, YAIMLEX) 10 mL, Oral, Every six hours prn, Starti ng on Sat04/12/21 at 0008, Until Discontinued, cough, 10 mL hEParin 100 units/ mL injection for heplock FLUSH(Linked Group 1 ) 500 Units (5 mL), IV, PRN per parameter, Starting on Sat03/31/21 at 1549, Until Discontinued, other (Specify), See admin instructions, 5 mL, Flush IMPLANTED VENOUS ACCESS DEVICE before removing needle; r e-access and flush site at least every 4 weeks or per specific provider order if not accessed. Use a push / pause technique when flushing to create turbulence. hydrALAZINE (APRESOLINE) injection solution 10 mg 10 mg, IV, Every four hours prn, Startin g on Sat04/01/21 at 1136, Until Discontinued, specified parameter, sbp>160, 0.5 mL hydrocortisone (HYTONE) 1 % cream affected area, Two times a day prn, Star ting on Yennifer 04/06/21 at 0706, Until Discontinued, itching HYDROmorphone (DILAUDID) injection solution (conc: 1 mg/mL) 1 mg 1 mg, IV, Every two hours prn, Starting on 04/10/21 at 0713, Until Discontinued, breakthrough pain, 1 mL LORazepam (ATIVAN) 2 mg/mL injection solution 1 mg 200 1 (Given - Provider: Bebe Armenta RN) 5 (Given - Provider: Katrina Darnell RN) 1 mg, IV, Bedtime prn, Starting on Sat at 1610, Until Discontinued, other (Specify), insomnia, 0.5 mL, If preference is to further dilute for IV administration: First draw up patient-specific do se, then dilute with EQUAL VOLUME of 0.9% sodium chloride melatonin tablet 3 mg 3 mg, Oral, Bedtime prn, Starting on Sat03/31/21 at 1521, Until Discontinued, other (Specify), insomnia, Use FIRST for insomnia. If inadequate response in 60 minutes, may proceed to next choice option or, if no other options, contact provider. nalOXone (NARCAN) injection solution (vial) 0.2 mg 0.2 mg, Injection, Every two minutes prn , Starting on Sat03/31/21 at 1518, Until Discontinued, other (Specify), opioid induced respiratory depression - PARTIAL reversal, 0.5 mL, PARTIAL REVERSAL/RESPIRAT ORY DEPRESSION If respiratory rate less than 8/minute - call rapid response and administer (until respiratory rate increases to 10/minute). Give IV (preferred), IM or SUBQ nalOXone (NARCAN) injection solution (vial) 0.4 mg 0.4 mg, Injection, Every two minutes prn , Starting on Sat03/31/21 at 1518, Until Discontinued, other (Specify), opioid induced respiratory arrest - FULL reversal, 1 mL, FULL REVERSAL/RESPIRATORY ARREST I f patient is not breathing - call CODE B LUE and administer. Give IV (preferred), IM or SUBQ ondansetron (ZOFRAN ODT) dispersible tablet 4 mg(Linked Group 2) 0216 (Given - Provider: Mikayla Rey RN) 4 mg, Oral, Four times a day prn, Starti ng on Sat03/31/21 at 1521, Until Discontinued, nausea, vomiting, Use FIRST for nausea / vomiting. If ineffective after 30 minutes use ondansetron IV ondansetron (ZOFRAN) injection solution 4 mg(Linked Gr oup 2) 2355 (Given - Provider: Bebe Armenta, RN) 4 mg, IV, Four times a day prn, Starting on Sat03/31/21 at 1521, Until Discontinued, nausea, vomiting, 2 mL, Use SECOND for nausea / vomiting. If ineffective after 30 minutes and ondansetron ODT used, c all physician for alternative. If prefer ence is to further dilute for IV administration: First draw up patient-specific dose, then dilute to 10 mL with 0.9% sodium chloride. oxyCODONE (OXY-IR) tablet 10 mg 0334 (Given - Provider : Bebe Armenta, RN)0952 (Given - Provider: Niecy Davidson, YAMILEX)1110 (Reassessment - Provider: Niecy Davidson, YAMILEX)1750 (Given - Provider: Niecy Davidson, YAMILEX) 2133 (Given - Provider: Katrina Darnell, YAMILEX) 0520 (Given - Provider: Mikayla Rey, YAMILEX) 10 mg, Oral, Every four hours prn, Start ing on Sat04/10/21 at 0713, Until Discontinued, moderate pain phenol (CHLORASEPTIC) 1.4 % liquid/spray 2 spray 2 spray, Mouth/Throat, Every two hours p rn, Starting on Sat04/03/21 at 1110, Until Discontinued, sore throat, 177 mL, Ok to keep at bedside polyethylene glycol (MIRALAX) packet 1 packet 1 packet, Oral, Two times a day prn, Sta rting on Sat04/10/21 at 1326, Until Discontinued, constipation, Dissolve in 8 ounces of water, juice, soda, coffee, tea Do NOT give if patient on thickened liquids. Contact provider for alternative if needed. promethazine (PHENERGAN) tablet 25 mg 25 mg, Oral, Every four hours prn, Start ing on Sat04/08/21 at 0640, Until Discontinued, nausea, vomiting Order Group 1: hEParin 100 units/ mL injection for heplock FLUSHJump to med 500 Units (5 mL), IV, PRN per parameter, Starting on Sat03/31/21 at 1549, Until Discontinued, other (Specify), See admin instructions, 5 mL
Flush IMPLANTED VENOUS ACCESS DEVICE before removing n eedle; re-access and flush site at least every 4 weeks or per specific provider order if not accessed. Use a push / pause technique when flushing to create turbulence.
And sodium chloride 0.9% flush (adult) 10 mLJump to med 10 mL, IV, Daily and prn, First dose on 04/01/21 at 0900, Until Discontinued, 10 mL
Flush IMPLANTED VENOUS ACCESS DEVICE unused lumens as scheduled and as often as necessary before and after meds. Flush with saline prior to Hepari n when de- accessing. Use a push / pause technique when flushing to create turbulence.
And CHG BATH Routine, DAILY 9AM, First occurrence on 04/01/21 at 0900 Group 2: ondansetron (ZOFRAN ODT) dispersible tablet 4 mgJump to med 4 mg, Oral, Four times a day prn, Starti ng on Sat03/31/21 at 1521, Until Discontinued, nausea, vomiting
Use FIRST for nausea / vomiting. If ineffective after 30 minutes use ondansetron IV
And ondansetron (ZOFRAN) injection solution 4 mgJump to med 4 mg, IV, Four times a day prn, Starting on Sat03/31/21 at 1521, Until Discontinued, nausea, vomiting, 2 mL
Use SECOND for nausea / vomiting. If ineffective after 30 minutes and ondans etron ODT used, call physician for alter samish. If preference is to further dilute for IV administration: First draw up patient-specific dose, then dilute to 10 mL with 0.9% sodium chloride.
documented in this encounter
[2021-04-18] MEDS: Letrozole 2.5 MG Tablet**OWN MED PO SCH (20:31)
[2021-04-18] MEDS: Acetaminophen/HYDROcodone 325-10 MG Tab PO PRN (20:31)
[2021-04-19] MEDS: Acetaminophen 500 MG Tab PO SCH (07:50)
[2021-04-19] MEDS: Magnesium Oxide 400 MG Tab PO SCH (07:50)
[2021-04-19] MEDS: Calcium Carbonate/Vitamin D3 625 MG-125 Unit Tab PO SCH ×3 (07:50→17:33)
[2021-04-19] MEDS: BIOTIN 10000 MCG PO SCH (07:51)
[2021-04-19] MEDS: Multivitamin Tab PO SCH (07:51)
[2021-04-19] MEDS: Famotidine 20 MG Tab PO SCH (07:51)
[2021-04-19] MEDS: Potassium Chloride 20 MEQ Tab.ER PO SCH ×2 (07:51→17:33)
[2021-04-19] MEDS: Cholecalciferol (Vitamin D3) 25 MCG Tab PO SCH (07:51)
[2021-04-19] MEDS: CYANOCOBALAMIN 5000 MCG PO SCH (07:53)
[2021-04-19] MEDS: Letrozole 2.5 MG Tablet**OWN MED PO SCH (20:55)
[2021-04-19] MEDS: Acetaminophen/HYDROcodone 325-10 MG Tab PO PRN (20:55)
[2021-04-20] MEDS ORDERED: Furosemide 40 MG/4 ML VIAL IVPUSH ONE (07:21)
[2021-04-20] MEDS: BIOTIN 10000 MCG PO SCH (07:39)
[2021-04-20] MEDS: Potassium Chloride 20 MEQ Tab.ER PO SCH ×2 (07:39→17:04)
[2021-04-20] MEDS: CYANOCOBALAMIN 5000 MCG PO SCH (07:40)
[2021-04-20] MEDS: Magnesium Oxide 400 MG Tab PO SCH (07:40)
[2021-04-20] MEDS: Multivitamin Tab PO SCH (07:41)
[2021-04-20] MEDS: Calcium Carbonate/Vitamin D3 625 MG-125 Unit Tab PO SCH ×3 (07:41→17:04)
[2021-04-20] MEDS: Cholecalciferol (Vitamin D3) 25 MCG Tab PO SCH (07:42)
[2021-04-20] MEDS: Famotidine 20 MG Tab PO SCH (07:46)
[2021-04-20] MEDS: Metoclopramide 10 MG/2 ML SDV IVPUSH PRN (08:30)
[2021-04-20] MEDS: Ondansetron 4 MG Tab.DIS PO PRN (09:46)
[2021-04-20] MEDS ORDERED: Bisacodyl 5 MG Tab PO PRN (11:02)
[2021-04-20] MEDS ORDERED: Phenazopyridine 95 MG Tab PO PRN (14:53)
[2021-04-20] MEDS: Cephalexin 250 MG Cap PO SCH ×2 (17:04→23:57)
[2021-04-20] MEDS: Letrozole 2.5 MG Tablet**OWN MED PO SCH (19:45)
[2021-04-20] MEDS: Acetaminophen/HYDROcodone 325-10 MG Tab PO PRN (21:01)
[2021-04-21] MEDS: Ondansetron 4 MG Tab.DIS PO PRN (07:28)
[2021-04-21] MEDS: Famotidine 20 MG Tab PO SCH (07:28)
[2021-04-21] MEDS: Magnesium Oxide 400 MG Tab PO SCH (07:29)
[2021-04-21] MEDS: Multivitamin Tab PO SCH (07:29)
[2021-04-21] MEDS: Calcium Carbonate/Vitamin D3 625 MG-125 Unit Tab PO SCH ×2 (07:30→11:38)
[2021-04-21] MEDS: Cholecalciferol (Vitamin D3) 25 MCG Tab PO SCH (07:30)
[2021-04-21] MEDS: Potassium Chloride 20 MEQ Tab.ER PO SCH (07:30)
[2021-04-21] MEDS: Cephalexin 250 MG Cap PO SCH (07:31)
[2021-04-21] MEDS: BIOTIN 10000 MCG PO SCH (07:33)
[2021-04-21] MEDS: CYANOCOBALAMIN 5000 MCG PO SCH (07:34)
[2021-04-21 07:35] VITALS: BP 102/63; PULSE 76
--- NOTE | 2021-04-21 11:14 | PCM.DCSUM1 ---
Discharge Summary - Hospital Course Free Text/Narrative:: Patient is a 75 year old female that has been in Swingbed in [facility] since discharge from [facility] following a procedure on her duodenum. On October 01 she started having severe abdominal pain, she went to the emergency room and had a CT of the abdomen which showed gallstones, cirrhosis and thickening of the duodenum. 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 Then on April 07 she underwent a laparoscopic robotic gastroduodenostomy. Initially she was on TPN for nutritional support and has since advanced her diet. Appetite is still somewhat decreased and she has some mild nausea and has been taking Ezel IV and Zofran orally for this as needed. Physical Therapy and Occupational Therapy has evaluated and worked with her during the stay and feel she is ready for discharge. She reports feeling p retty good. Having regular bowel movements. Does have some mild nausea at times, but has only had one small emesis during her stay. She is curretnly also being treated for a UTI with Keflex, culture grew out gram negative rods. Culture and sensitivity is pending. She is currently being treated for metastatic breast cancer with chemotherapy and has a Port-A-Cath in place for that. Diagnosis: Stroke: No Modified Claudette Scale: No Symptoms at All Modified [place] Scale Score: 0 - Discharge Data Discharge Date: 04/21/21 Discharge Disposition: Home, Self-Care 01 Condition: Good - Referral to Home Health Primary Care Physician: Donya Cardenas NP - Discharge Diagnosis/Problem(s) (1) Nausea and vomiting SNOMED Code(s): 03650817 ICD Code: R11.2 - NAUSEA WITH VOMITING, UNSPECIFIED Status: Acute Problem Details: Will send her home with Reglan orally and Zofran to use as needed. This has improved during her stay. (2) Abdominal pain SNOMED Code(s): 82424681 ICD Code: R10.9 - UNSPECIFIED ABDOMINAL PAIN Status: Acute Priority: High Onset Date: ~02/16/21 Problem Details: Abdominal pain has essentially resolved with minimal tenderness on palpation. She is now having regular BM's. Qualifiers: Abdominal location: generalized Qualified Code(s): R10.84 - Generalized abdominal pain (3) Breast cancer metastasized to liver SNOMED Code(s): 066195537, 224707970, 661512726 ICD Code: C50.919 - MALIGNANT NEOPLASM OF UNSP SITE OF UNSPECIFIED FEMALE BREAST; C78.7 - SECONDARY MALIG NEOPLASM OF LIVER AND INTRAHEPATIC BILE DUCT Status: Chronic Priority: Medium Qualifiers: Laterality: right Qualified Code(s): C50.911 - Malignant neoplasm of unspecified site of right female breast; C78.7 - Secondary malignant neoplasm of liver and intrahepatic bile duct (4) UTI, Urinary tract infectious disease SNOMED Code(s): 59544959 ICD Code: N39.0 - URINARY TRACT INFECTION, SITE NOT SPECIFIED Status: Acute Priority: High Onset Date: ~04/20/21 Problem Details: Started on Keflex yesterday. C&S is pending. Will continue the Keflex at home, prescription sent in to pharmacy. (5) CHF (congestive heart failure) SNOMED Code(s): 92399047 ICD Code: I50.9 - HEART FAILURE, UNSPECIFIED Status: Chronic Priority: Medium Onset Date: ~08/22/18 Problem Details: Adjusted diet accordingly including fluid restriction, etc. on 02/22. No chest pain or anginal type symptoms. Note mild CHF with pleural effusion by chest x-ray on 02/23 with IV Lasix therapy with caution secondary to her electrolyte imbalances at time of admission. No further echocardiogram, etc. secondary to her comfort care status. The patient has been having a thoracentesis on an every [address] scan of the chest and follow-up appointment with Dr. Serna at [facility] in [place] already scheduled for 03/03 by patient history. Qualifiers: Heart failure type: unspecified Heart failure chronicity: chronic Qualified Code(s): I50.9 - Heart failure, unspecified (6) Weakness SNOMED Code(s): 13254020 ICD Code: R53.1 - WEAKNESS Status: Chronic Priority: High Problem Details: As above with history of metastic cancer. Continue strict fall precautions, walker use, etc. after discharge. Cleared by PT to be discharged home. She will have Homemakers come in and help with cleaning. She declines Home Health at this time. - Patient Summary/Data Consults: Consultations 04/17/21 07:50 PT Evaluation and Treatment [CONS] Routine 04/17/21 07:51 OT Evaluation and Treatment [CONS] Routine - Patient Instructions Diet: Usual Diet as Tolerated Activity: As Tolerated Activity, Other: use walker Notify Provider of: Fever, Increased Pain, Swelling and Redness, Drainage, Nausea and/or Vomiting - Discharge Plan *PRESCRIPTION DRUG MONITORING PROGRAM REVIEWED*: Yes *COPY OF PRESCRIPTION DRUG MONITORING REPORT IN PATIENT SANDY: Yes Prescriptions/Med Rec: bisacodyL [Dulcolax] 5 mg PO DAILY PRN #30 tablet PRN Reason: Constipation Famotidine 20 mg PO DAILY 30 Days #30 cephALEXin [Keflex] 500 mg PO Q8HR 9 Days cap Furosemide [Lasix] 40 mg PO DAILY 90 Days #180 tab Metoclopramide HCl 5 mg PO BID #30 tablet Ondansetron [Zofran ODT] 4 mg PO Q6H PRN #30 tab.dis PRN Reason: Nausea/Vomiting Home Medications: Home Meds Lactase [Lactaid] 3,000 unit PO ASDIRECTED PRN 01/19/19 [History] Calcium Carbonate/Vitamin D3 [Calcium 500-Vit D3 125 Caplet] 1 tab PO TID 02/08/19 [History] Cyanocobalamin (Vitamin B-12) [Vitamin B-12] 5,000 mcg PO QAM 02/08/19 [History] Multivitamins [Tab-A-Tran] 1 tab PO QAM 02/08/19 [History] Cholecalciferol (Vitamin D3) [Vitamin D3] 1,000 unit PO DAILY 02/15/19 [History] Simethicone 160 mg PO Q4H PRN tab.chew 02/27/19 [Rx] Letrozole 2.5 mg PO DAILY 01/25/21 [History] Biotin 200 unit PO DAILY 04/14/21 [History] Cyclobenzaprine [Flexeril] 5 mg PO TID PRN 04/14/21 [History] Magnesium 250 mg PO DAILY 04/14/21 [History] Potassium Chloride [Klor-Con M20] 20 meq PO BID 04/14/21 [History] Famotidine 20 mg PO DAILY 30 Days #30 04/21/21 [Rx] Furosemide [Lasix] 40 mg PO DAILY 90 Days #180 tab 04/21/21 [Rx] Metoclopramide HCl 5 mg PO BID #30 tablet 04/21/21 [Rx] Ondansetron [Zofran ODT] 4 mg PO Q6H PRN #30 tab.dis 04/21/21 [Rx] bisacodyL [Dulcolax] 5 mg PO DAILY PRN #30 tablet 04/21/21 [Rx] cephALEXin [Keflex] 500 mg PO Q8HR 9 Days cap 04/21/21 [Rx] - Discharge Summary/Plan Comment DC Time >30 min.: Yes - General Info Functional Status: Reports: Pain Controlled - Review of Systems General: Reports: No Symptoms HEENT: Reports: No Symptoms, Other (wears glassss) Pulmonary: Reports: No Symptoms, Other (History of COPD) Cardiovascular: Reports: Other (History of CHF) Gastrointestinal: Reports: Nausea Genitourinary: Reports: Other (current UTI, being treated) Musculoskeletal: Reports: No Symptoms Skin: Reports: No Symptoms Neurological: Reports: No Symptoms Psychiatric: Reports: No Symptoms - Patient Data Vitals - Most Recent: Last Vital Signs Temp 98.4 F 04/21/21 07:34 Pulse 76 04/21/21 07:34 Resp 16 04/21/21 07:34 BP 102/63 04/21/21 07:34 Pulse Ox 96 04/21/21 07:34 Weight - Most Recent: 152 lb I&O - Last 24 hours: Intake & Output 04/20/21 04/21/21 04/21/21 22:59 06:59 14:59 Intake Total 100 120 Balance 100 120 KRYSTAL Results - Last 24 hrs: Microbiology 04/20/21 03:42 Urine Culture - Preliminary Urine, Voided Gram Negative Rods Med Orders - Current: Current Medications Hydrocodone Bitart/Acetaminophen (Acetaminophen/Hydrocodone 325-10 Mg Tab) 1 tab PO Q6H PRN PRN Reason: Pain Last Admin: 04/20/21 21:01 Dose: 1 tab Documented by: Bisacodyl (Bisacodyl 5 Mg Tab) 5 mg PO DAILY PRN PRN Reason: Constipation Last Admin: 04/20/21 11:13 Dose: 5 mg Documented by: Calcium Carbonate (Calcium Carbonate/Vitamin D3 625 Mg-125 Unit Tab) 1 tab PO TID SHANTHI Last Admin: 04/21/21 07:30 Dose: 1 tab Documented by: Cephalexin (Cephalexin 250 Mg Cap) 500 mg PO Q8HR SHANTHI Last Admin: 04/21/21 07:31 Dose: 500 mg Documented by: Cholecalciferol (Cholecalciferol (Vitamin D3) 25 Mcg Tab) 25 mcg PO DAILY [facility] Last Admin: 04/21/21 07:30 Dose: 25 mcg Documented by: Cyclobenzaprine HCl (Cyclobenzaprine 10 Mg Tab) 5 mg PO TID PRN PRN Reason: Spasms Famotidine (Famotidine 20 Mg Tab) 20 mg PO DAILY [facility] Last Admin: 04/21/21 07:28 Dose: 20 mg Documented by: Heparin Sodium (Porcine) (Heparin Sodium 100 Units/Ml 5 Ml Syringe) 500 units FLUSH ASDIRECTED PRN PRN Reason: IV Use Last Admin: 04/20/21 08:33 Dose: 500 units Documented by: Heparin Sodium (Porcine) (Heparin Sodium 100 Units/Ml 5 Ml Syringe) 500 units FLUSH BEDTIME [facility] Last Admin: 04/20/21 19:33 Dose: Not Given Documented by: Magnesium Oxide (Magnesium Oxide 400 Mg Tab) 200 mg PO DAILY [facility] Last Admin: 04/21/21 07:29 Dose: 200 mg Documented by: Metoclopramide HCl (Metoclopramide 10 Mg/2 Ml Sdv) 10 mg IVPUSH Q6H PRN PRN Reason: Nausea Last Admin: 04/20/21 08:30 Dose: 10 mg Documented by: Multivitamins/Minerals/Vitamin C (Multivitamin Tab) 1 tab PO QAM [facility] Last Admin: 04/21/21 07:29 Dose: 1 tab Documented by: Biotin [Biotin] 10, 000 Mcg CapsuleOwn Med 0 unit PO DAILY [facility] Last Admin: 04/21/21 07:33 Dose: 10,000 unit Documented by: Lactase [Lactaid] 3, 000 Unit TabletOwn Med 3,000 unit PO ASDIRECTED PRN PRN Reason: Extra Lactose in Diet Last Admin: 04/18/21 08:47 Dose: 3,000 unit Documented by: Letrozole 2.5 Mg (TabletOwn Med) 2.5 mg PO BEDTIME [facility] Last Admin: 04/20/21 19:45 Dose: Not Given Documented by: Cyanocobalamin ( Vitamin B12) 5,000 Mcg TabOwn Med 5,000 each PO QAM [facility] Last Admin: 04/21/21 07:34 Dose: 5,000 each Documented by: Ondansetron HCl (Ondansetron 4 Mg Tab.Dis) 4 mg PO Q6H PRN PRN Reason: Nausea/Vomiting Last Admin: 04/21/21 07:28 Dose: 4 mg Documented by: Phenazopyridine HCl (Phenazopyridine 95 Mg Tab) 190 mg PO TIDPC PRN PRN Reason: Dysuria Last Admin: 04/20/21 17:12 Dose: 190 mg Documented by: Potassium Chloride (Potassium Chloride 20 Meq Tab.Er) 20 meq PO BID SHANTHI Last Admin: 04/21/21 07:30 Dose: 20 meq Documented by: Simethicone (Simethicone 80 Mg Tab.Chew) 160 mg PO Q4H PRN PRN Reason: Dyspepsia Last Admin: 04/15/21 13:38 Dose: 160 mg Documented by: Discontinued Medications Acetaminophen (Acetaminophen 500 Mg Tab) 1,000 mg PO Q8HR [facility] Stop: 04/19/21 08:01 Last Admin: 04/19/21 07:50 Dose: 1,000 mg Documented by: Cyanocobalamin (Cyanocobalamin (Vitamin B12) 1,000 Mcg Tab) 5,000 mcg PO QAM [facility] Last Admin: 04/15/21 07:42 Dose: 5,000 mcg Documented by: Iopamidol (Iopamidol 612 Mg/Ml 100 Ml Bottle) 100 ml IVPUSH ONETIME ONE Stop: 04/16/21 11:15 Last Admin: 04/16/21 11:30 Dose: 100 ml Documented by: Iopamidol (Iopamidol 612 Mg/Ml 100 Ml Bottle) Confirm Administered Dose 100 ml .ROUTE .STK-MED ONE Stop: 04/16/21 11:18 Last Admin: 04/17/21 06:40 Dose: Not Given Documented by: Metoclopramide HCl (Metoclopramide 10 Mg/2 Ml Sdv) 10 mg IVPUSH ONETIME ONE Stop: 04/15/21 23:30 Last Admin: 04/16/21 00:05 Dose: 10 mg Documented by: Oxycodone HCl (Oxycodone 5 Mg Tab) 10 mg PO Q4HR PRN PRN Reason: Pain (moderate 4-6) Stop: 04/17/21 15:42 Last Admin: 04/15/21 20:23 Dose: 10 mg Documented by: - Exam General: Reports: Alert, Oriented HEENT: Reports: Pupils Equal, Pupils Reactive, EOMI, Mucous Membr. Moist/[place] Neck: Reports: Supple Lungs: Reports: Clear to Auscultation, Normal Respiratory Effort Cardiovascular: Reports: Regular Rate, Regular Rhythm GI/Abdominal Exam: Normal Bowel Sounds, Soft, Non-Tender, No Organomegaly, No Distention, No Abnormal Bruit, No Mass, Pelvis Stable (Female) Exam: Normal External Exam, Normal Speculum Exam, Normal Bimanual Exam Rectal (Female) Exam: Normal Exam, Normal Rectal Tone Back Exam: Reports: Normal Inspection, Full Range of Motion Extremities: Normal Inspection, Normal Range of Motion, Non-Tender, No Pedal Edema, Normal Capillary Refill Skin: Reports: Warm, Dry, Intact Wound/Incisions: Reports: Healing Well Neurological: Reports: No New Focal Deficit Psy/Mental Status: Reports: Alert, Normal Affect, Normal Mood *Q Meaningful Use (DIS) - VTE *Q VTE Mechanical Contraindications *Q: At Risk for Falls VTE Pharmacological Contraindications *Q: Risk of Bleeding VTE Anticoagulation Contraindications: Alternative [place] Request PT - Stroke *Q Aspirin Contraindications Stroke *Q: Allergy Anticoagulation Contraindications Stroke *Q: Med Allergy/INTOL/Interac Antithrombotic Contraindications Stroke *Q: Med Allerg/Intol/Interact Statin Contraindications Stroke *Q: Med Allerg/Intol/Interact Rehabilitation Assessment Contraindication *Q: Med allergy/intol/interac - AMI *Q Aspirin Contraindications AMI *Q: Med Allerg/Intol/Interact Statin Contraindications AMI *Q: Med Allerg/Intol/Interact
--- OUTSIDE RECORDS SUMMARY | 2021-05-31 15:52 | XMSREPORT ---
:1945 Author Organization [facility] s Address [address] [place] [address] [address] [place] [address] Care Team Providers Name Role Phone Provider, Attributed RESOURCE Attributed Provider Unavailab Krystyna Graham MD Primary Care Provider Reason for Visit Reason Comments Vomiting Patient is 1 month post patricio johnny bypass and c/o vomitting and bloating since last night. She is a stage I V breast cacer patient Auth/Cert (Routine) Status Reason Specialty Diagnoses / Procedures Referred By C ontact Referred To Contact Diagnoses Pleural effusion on right [place], Procedures IR REMOVAL TUNNELED PLEURAL DRAIN [address] [place] [id number] Phone: Encounter Details Date Type Department Care Team Description 05/26/2021 - [facility] John Paul Segovia MD [address] [place] [address] [phone] Obstructed, gastric 05/30/2021 Encounter CENTER 8CD Mark Anthony Rosenthal MD [address] [place] [address] [phone] outlet SURG [facility] Eagle Westbrook MD [address] [place] [address] [phone] [address] [facility] Luisa Mixon MD [address] [place] [address] [phone] [place] [address] Los Dukes MD [address] [place] [address] [phone] Allergies Active Allergy Reactions Severity Noted Date [...] as of this encounter (statuses as of 05/30/2021) Medications Medication Sig Dispensed Refills Start Date End Date Status Multiple Vitamin Take 1 tablet by 0 Active (MULTI-VITAMIN) tablet mouth 1 time per day. Cyanocobalamin Take 5,000 mcg by 0 Active (VITAMIN B-12) 5000 mouth 1 time per MCG LOZG day lactase (LACTAID) 3000 Take 3,000 Units 0 Active units TABS by mouth as needed for other (Specify) calcium Take 1 tablet by 60 tablet 11 12/12/2018 Ac tive carbonate-vitamin D mouth 3 times a (OSCAL 500 + VIT D) day with meals 500 mg-200 unit tabletIndications: Metastatic breast cancer (HCC), Bone metastasis (HCC) magnesium oxide 250 MG Take 250 mg by 0 Active TABS mouth 1 time per day simethicone (MYLICON, Take 2 tablets 30 each 1 02/07/2019 Active GAS-X) 80 MG (160 mg) by mouth CHEWIndications: Every 4 hours as Dyspepsia needed for flatulence vitamin D3, Take 1 tablet 30 tablet 0 02/16/2019 Act iraj cholecalciferol, 1000 (1,000 Units) by unit mouth 1 time per tabletIndications: day Hypocalcemia potassium chloride Take 1 tablet (20 90 tablet 0 02/12/2020 Active (KLOR-CON M20) 20 MEQ mEq) by mouth 2 CR tablet times a day letrozole (FEMARA) 2.5 Take 1 tablet (2.5 90 tablet 3 10/21/19 21 Active mg tabletIndications: mg) by mouth 1 Malignant neoplasm of time per day overlapping sites of right breast in female, estrogen receptor positive (HCC) Biotin 80840 MCG TABS Take 10,000 mcg by 0 Active mouth 1 time per day famotidine (PEPCID) 20 Take 1 tablet (20 0 1 Active mg tabletIndications: mg) by mouth 1 Duodenal obstruction time per day Additional Information Patient taking differently: 20 mg Oral One time a day prn, heartburn, Reported on 05/26/2021 doxazosin (CARDURA) 2 mg Take 2 mg by 0 05/10/2021 Active tablet mouth 1 time per day ondansetron (ZOFRAN ODT) 4 Take 4 mg by 0 04/21/2021 Active mg dispersible tablet mouth Methylsulfonylmethane (MSM) Take 1,000 mg 0 Active 1000 MG TABS by mouth 1 time per day calcium carbonate (TUMS) Take 500 mg 0 Active 500 MG chewable tablet by mouth 4 times a day as needed HYDROcodone-acetaminophen Take 1 tablet 0 Active (NORCO) 5-325 mg tablet by mouth every 6 hours as needed for moderate pain metoclopramide (REGLAN) 10 Take 5 mg by 0 Active mg tablet mouth 4 times a day as needed for nausea or vomiting midodrine (PROAMATINE) 2.5 Take 2.5 mg 0 Active mg tablet by mouth 2 times a day before meals furosemide (LASIX) 40 mg Take 1 tablet 0 05/30/2021 Active tablet (40 mg) by mouth 1 time per day Hold until PCP follow up pantoprazole (PROTONIX) 40 Take 1 tablet 60 tablet 0 1 06/29 Active mg enteric coated (40 mg) by tabletIndications: Duodenal mouth 2 times obstruction a day before meals furosemide (LASIX) 40 mg Take 40 mg by 0 04/21/202105/30 Discontinued tablet mouth 1 time (Jennifer mackenzie) per day documented as of this encounter (statuses as of 05/30/2021) Active Problems Problem Noted Date Obstructed, gastric outlet 05/29/2021 Nausea and vomiting 05/26/2021 Duodenal obstruction 03/31/2021 Pleural effusion, malignant 01/13/2021 [...] as of this encounter (statuses as of 05/30/2021) Resolved Problems Problem Noted Date Resolved Date senior living current use of anticoagulant therapy 06/12/2019 05/06/2020 Ascites 02/09/2019 06/12/2019 Anasarca 02/03/2019 06/12/2019 Anemia due to antineoplastic chemotherapy 01/10/2019 03/28/2020 Hypoalbuminemia due to protein-calorie malnutrition 01/11/2007/06/2019 documented as of this encounter (statuses as of 05/30/2021) Social History Tobacco Use Types Packs/Day Years Used Date Never Smoker Smokeless Tobacco: Never Used Alcohol Use Standard Drinks/Week Comments No 0 (1 standard drink = 0.6 oz pure alcoho l) Alcohol Habits Answer Date Recorded How often do you have a drink containing alcohol? Never 05/26/2021 How many drinks containing alcohol do you have on a typical Not asked day when you are drinking? How often do you have six or more drinks on one occasion? Ne otoniel 05/26/2021 Comment: Not asked Sexually Active Control Partners Comments Never Sex Assigned at Date Recorded Not on file documented as of this encounter Last Filed Vital Signs Vital Sign Reading Time Taken Comments Blood Pressure 132/75 05/30/2021 11:05 AM CDT Pulse 71 05/30/2021 11:05 AM CDT Temperature 36.4 C (97.6 F) 05/30/2021 11:05 AM CDT Respiratory Rate 20 05/30/2021 11:05 AM CDT Oxygen Saturation 97% 05/30/2021 11:05 AM CDT Inhaled Oxygen Concentration - - Weight 68.2 kg (150 lb 6.4 oz) 05/28/2021 6:40 AM CDT Height 170.2 cm (5' 7") 05/26/2021 6:00 PM CDT Body Mass Index 23.56 05/26/2021 6:00 PM CDT documented in this encounter Functional [...] documented as of this encounter Discharge Summaries Los Dukes MD - 05/30/2021 11:21 AM CDT Images from the original note were not included. [facility] Discharge Summary Name: Sabrina Retana [place] #: [id number] : 1945 75yr PCP: Helen Cardenas MD Date of Admission: 05/26/2021 10:26 AM Date of Discharge: 05/30/2021 Attending Physician: Los Dukes MD Discharge Diagnosis: 1. Duodenal obstruction 2. Recent gastrojejunostomy with anastomotic stricture 3. Metastatic breast cancer 4. Anxiety Discharge Medications: Medication List START taking these medications pantoprazole 40 mg enteric coated tablet Commonly known as: PROTONIX Take 1 tablet (40 mg) by mouth 2 times a day before meals CHANGE how you take these medications famotidine 20 mg tablet Commonly known as: PEPCID Take 1 tablet (20 mg) by mouth 1 time per day What changed: when to take this reasons to take this furosemide 40 mg tablet Commonly known as: LASIX What changed: additional instructions CONTINUE taking these medications Biotin 14800 MCG Tabs calcium carbonate 500 MG chewable tablet Commonly known as: TUMS calcium carbonate-vitamin D 500 mg-200 unit tablet Commonly known as: OSCAL 500 + VIT D doxazosin 2 mg tablet Commonly known as: CARDURA HYDROcodone-acetaminophen 5-325 mg tablet Commonly known as: NORCO lactase 3000 units Tabs Commonly known as: LACTAID letrozole 2.5 mg tablet Commonly known as: FEMARA Take 1 tablet (2.5 mg) by mouth 1 time per day magnesium oxide 250 mg Tabs metoclopramide 10 mg tablet Commonly known as: REGLAN midodrine 2.5 mg tablet Commonly known as: PROAMATINE MSM 1000 MG Tabs multi-vitamin tablet ondansetron 4 mg dispersible tablet Commonly known as: ZOFRAN ODT potassium chloride 20 MEQ CR tablet Commonly known as: KLOR-CON M20 simethicone 80 MG Chew Commonly known as: MYLICON, GAS-X Take 2 tablets (160 mg) by mouth Every 4 hours as needed for flatulence Vitamin B-12 5000 MCG Lozg vitamin D3 (cholecalciferol) 1000 unit tablet Take 1 tablet (1,000 Units) by mouth 1 time per day Where to Get Your Medications These medications were sent to [facility] [address] [place] [id number] Hours: M-F 8am-9pm, Sat-Sun 9am-9pm pantoprazole 40 mg enteric coated tablet Disposition and follow-up: Ms.Ellen Courtney Retana was discharged from [facility] in good condition. At the hospital follow up visit please address: 1. Follow up with the surgeons as an outpatient in two weeks. 2. Labs / imaging needed at time of follow-up: none 3. Pending labs on discharge: Follow-up Appointments: Hospital Course by problem list: 1. Duodenal obstruction: noted and underwent recent Gastrojejunostomy for bypass. Surgery consultedand has seen during admission. Plan for now for conservative management with low residual diet and planned follow up in 2 weeks. Advance to Low residual diet and tolerated well. Dietary education ordered before discharge. 2. Recent gastrojejunostomy with anastomotic stricture: noted and done recently for duodenal obstruction. Vomiting on admission so underwent endoscopy and noted to have a large amount of residual foodin the stomach. Also noted to have a stricture at the anastomosis with no signs of bleeding. Dilated to 12 mm. Plan for low residual diet for 4 weeks then GI follow up to consider stenting. 3. Metastatic breast cancer: follows with [facility]. On Letrozole daily which we will continue. 4. Anxiety: mood stable throughout admission. Some recent adjustment reaction due to the surgery andthe underlying reasons. Follow up with [facility] Discharge Instructions: Discharge Instructions Heart Failure Discharge Instructions Activity: Be as active as possible Break down tasks to small activities to avoid becoming overly tired Talk to your doctor before lifting more than 10 pounds Begin to exercise slowly and increase only as tolerated; refer to your education book Balance activity and rest periods Nutrition: Follow a low sodium (salt) diet Choose no added salt or low sodium foods; choose fresh foods as much as possible Avoid adding salt to food when cooking or at the table Read the nutrition facts labels and avoid foods with more than 300 mg of sodium per serving Medication: Make a list and schedule of the medications you take Keep a current list of your medications with you Take your medications as prescribed Avoid NSAIDs or Non-Steroidal Anti-Inflammatory Drugs (i.e. Advil, Ibuprofen, Motrin, etc.) Self-Care: Weigh yourself and write it down first thing in the morning after you empty your bladder and before you eat or drink Check for swelling of your feet, ankles, legs, and stomach Do your daily exercise If you smoke, stop Keep all follow-up appointments and bring your medications and weight log with you Review the Living Well with Heart Failure booklet for more information on caring for yourself or your loved one at home. Call Your Doctor or Health Medical Records Tech If You Have: Weight gain of more than 2 pounds overnight or 5 pounds in one week (or whatever weight gain youwere told to report by your doctor) New or increased swelling of your legs or ankles, swelling or pain in your stomach Decrease in amount you urinate Increased shortness of breath Increased cough with yellow or green sputum (mucus) Increased breathing trouble at night (waking up short of breath, needing more pillows to breathe) Feeling much more tired than usual Racing or pounding heart beat Dizziness Go To The Nearest Emergency Room or Call 911 If You Have: Shortness of breath so severe that you cannot catch your breath even while resting Tornado, foamy sputum (mucus) New problem sleeping; you need to sit straight up to sleep or are not able to sleep due to shortness of breath Severe chest pain that does not resolve with rest or Nitroglycerin New or increased confusion or cannot think clearly A continuous rapid or irregular heart beat Fainting or feeling to dizzy to stand up Consultations: CASE MANAGEMENT CONSULT NUTRITION REFERRAL CONSULT GASTROENTEROLOGY CONSULT PSYCHOLOGY CONSULT SURGICAL ONCOLOGY NUTRITION REFERRAL Admission HPI: 75-year-old female with a history of of stage IV breast cancer triple positive who presented to hospital with nausea vomiting. On March 31, 2020 when the patient was admitted to the hospital secondary to abdominal discomfort nausea vomiting. At that time the patient was found to have thickening of the proximal duodenum and underlying hepatic cirrhosis and cholelithiasis. She was eventually found to have a duodenal obstruction. She underwent robotic gastrojejunostomy and did relatively well. Unfortunately over the past 24 to 48 hours she had severe acute nausea vomiting. She was vomiting her breakfast and unable to take her pills. She came to the ER. In the ER she underwent labs which were normal. Lipase was negative. CT of the abdomen did not show any obstruction or acute findings. Oral contrast went down all the way to the colon. There is no dilation of the small bowel. Patient was admitted for observation status for intractable nausea vomiting and abdominal pain. Procedures Performed: CT ABDOMEN PELVIS WITH CONTRAST Result Date: 05/26/2021 Patient Name: SABRINA RETANA Date of : 1945 Procedure: CT ABDOMEN PELVIS WITH CONTRAST Date of Service: 05/26/2021 EXAM: CT ABDOMEN PELVIS WITH CONTRAST INDICATION: Nausea/vomiting, Bowel obstruction suspected, abdominal pain, n/v and decreased stools. hx of duodenal obstruction,recent gastrojujenostomy. metastatic breast CA. ? obstruction TECHNIQUE: CT imaging was performed through the abdomen and pelvis following IV contrast. COMPARISON(S): 04/16/2021 FINDINGS: Lower Chest: Small right pleural effusion has decreased compared to the prior exam with persistent adjacent rounded atelectasis in the right lower lobe. Left lower lung is grossly clear. Liver: Cirrhotic appearing liver without focal lesions. Similar appearance of mildly prominent bile ducts in segment 4. Gallbladder: Multiple stones again seen in the gallbladder. Bile ducts: Common bile duct is not significantly dilated. Pancreas: Normal Spleen: Borderline enlarged up to 12.5 cm craniocaudal. Adrenal glands:Normal Kidneys: 1.2 cm cyst in the mid right kidney, previously characterized as hemorrhagic/proteinaceous. 1.8 cm cyst in the mid left kidney. No hydronephrosis. No nephrolithiasis. Ureters: Normal Bladder: Bladder is moderately distended. No focal lesions. Pelvic viscera: Fibroid uterus is similar compared to the prior exam. No suspicious adnexal mass. Stomach: Not distended. Moderate sized hiatal hernia. Gastrojejunostomy. Small bowel: Normal caliber Colon: Mild amount of air and stool in the colon. Appendix: Not identified. Vascular: Main portal vein is dilated up to 2.0 cm. No findings suspicious for thrombosis. Probable perisplenic varices. Lymph nodes: No lymphadenopathy. Peritoneum: No free fluid or pneumoperitoneum. Abdominal wall: Normal Bones: No acute fracture. Extensive metastatic disease throughout the bones has not significantly changed compared to the prior exam. IMPRESSION:1. No acute findings in the abdomen/pelvis. Contrast passed to the distal small bowel and colon without marked dilation of the small bowel. 2. Cirrhotic appearing liver without suspicious focal lesion.Borderline splenomegaly. 3. Small right pleural effusion has decreased compared to the prior exam. 4. Bladder is moderately distended without focal mass. 5. Extensive metastatic disease in the bones again seen. Finalized by: Rashaun aJck MD on 05/26/2021 2:34 PM CDT Patient/Procedure Information: [facility] MRN/GEO: [id number] Order Number: [id number] Accession Number: [id number] Ordering Provider: JOHN PAUL SEGOVIA Authorizing Provider: JOHN PAUL SEGOVIA XRAY UPPER GI Result Date: 05/29/2021 Patient Name: SABRINA RETANA Date of : 1945 Procedure: XRAY UPPER GI Date of Service: 05/29/2021 EXAM: XRAY UPPER GI INDICATION:stricture of [place] duodenum, now stricture of gastrojejunostomy COMPARISON(S): None Available FINDINGS: Dog Bather abdomen and pelvis: No abnormal dilated bowel loops, intraperitoneal free air, or abnormal air-fluid levels.Moderate degenerative spondylosis multiple levels thoracolumbar spine. Mild parahilar, bibasilar curvilinear patchy airspace opacity, volume loss. Minimal bilateral pleural effusions. Moderate cardiomegaly more limited examinationinferior thorax. Upper GI: Under fluoroscopic control, water-soluble iodinated contrast, and also thin barium contrast material was seen to flow readily through the esophagus into the stomach. Marked gastroesophageal reflux to the level just superior to the thoracic inlet during Valsalva maneuver. Moderate transient hiatus hernia during Valsalva maneuver. No other persistent filling defects, deviation, mass effect or dysmotility of esophagus. No other persistent filling defects, ulceration change of stomach. Left subclavian central line, with thoracic port, Distal tip, at the expected location, superior right atrial SVC junction limited examination. No persistent stricture of the gastrojejunal anastomosis region. No other abnormal persistent dilated small bowel loops or persistent gastricdistention. IMPRESSION: Moderate size hiatus hernia. Marked elicited gastroesophageal reflux. No definite evidence of high-grade stricture at the gastrojejunal anastomosis region. Mild parahilar,bibasilar segmental atelectasis and/or scarring versus consolidation from pneumonia versus aspiration inferior thorax. Correlation with dedicated PA lateral chest if clinical suspicion for acute or subacute pulmonic pathology. Minimal bilateral pleural effusions. Finalized by: Stephen Bear MD on05/29/2021 7:38 PM CDT Patient/Procedure Information: [facility] MRN/GEO: [id number] Order Number: [id number] Accession Number: [id number] Ordering Provider: PARVIZ CUELALR Authorizing Provider: ANSELMO FRANCISCO XRAY CHEST PORTABLE - Result Date: 05/26/2021 Patient Name: SABRINA RETANA Date of : 1945 Procedure: XRAY CHEST PORTABLE Dateof Service: 05/26/2021 EXAM: XRAY CHEST PORTABLE INDICATION: shortness of breath COMPARISON(S): 04/01/2021. FINDINGS/IMPRESSION: Interval removal of the previously seen enteric tube. Left chest Port-A-Cath is stable and appropriately positioned. There is no acute focal consolidation. There is blunting of the bilateral costophrenic angles, right greater than left, suspicious for small pleural effusions. No pneumothorax. The cardiac silhouette is normal. No acute osseous or soft tissue abnormality. Finalized by: Micheal De La Torre MD on 05/26/2021 11:35 AM CDT Patient/Procedure Information: [facility] MRN/GEO: [id number] Order Number: [id number] Accession Number: [id number] Ordering Provider: JOHN PAUL SEGOVIA Authorizing Provider: JOHN PAUL SEGOVIA IR THORACENTESIS Result Date: 05/05/2021 Patient Name: SABRINA RETANA Date of : 1945 Procedure: IR THORACENTESIS Date ofService: 05/05/2021 History: Right pleural effusion EXAM: Ultrasound of the right chest. FINDINGS:There is a dhjyd-vd-rqhddgav right pleural effusion with estimated volume of approximately 250-500 mL. The patient requested not to perform thoracentesis given the relatively small amount of fluid. IMPRESSION: Patient requested not to perform thoracentesis given only small amount of fluid on ultrasound. Finalized by: Manny Long MD on 05/05/2021 3:17 PM CDT Patient/Procedure Information: [facility] MRN/GEO: [id number] Order Number: [id number] Accession Number: [id number] Ordering Provider: NEW BRAUN Authorizing Provider: NEW BRAUN Discharge Vitals: BP 132/75 Pulse 71 Temp 97.6 F (36.4 C) Resp 20 Ht 1.702 m (5' 7") Wt 68.2 kg (150 lb 6.4 oz) SpO2 97% BMI 23.56 kg/m2|| Vitals reviewed. General: resting in bed, NAD HEENT: PERRL, EOMI, no scleral icterus Cardiac: RRR, no rubs, murmurs or gallops Pulm: clear to auscultation bilaterally, no wheezes, rales, or rhonchi Abd: soft, nontender, nondistended, BS present Ext: warm and well perfused, no pedal edema Neuro: alert and oriented X3, cranial nerves II-XII grossly intact, strength and sensation to light touch equal in bilateral upper and lower extremities Discharge Labs: Labs (Last day) 05/30/21 1055 - 05/29/21 1245 CHEMISTRY 05/30/21 1055 05/30/21 1055 05/30/21 1055 05/29/21 1245 05/29/21 1245 CHEMISTRY Glucose 70-100 (mg/dL) 87 87 Sodium 135-145 (meq/L) 141 141 Potassium 3.5-5.3 (meq/L) 3.3 3.2 Chloride 99-110 (meq/L) 110 111 CO2 20-29 (meq/L) 23 21 Anion Gap with K 6-20 (meq/L) 11 12 BUN 6-22 (mg/dL) 3 5 Creatinine 0.60-1.10 (mg/dL) 0.61 0.62 BUN/Creatinine Ratio 10.0-25.0 4.9 8.1 Calcium 8.5-10.5 (mg/dL) 7.4 7.5 Phosphorus 2.5-4.5 (mg/dL) 2.1 Magnesium 1.8-2.4 (mg/dL) 2.1 2.0 eGFR >=60 (mL/min/1.73m2) >90 >90 eGFR Non- >=60 (mL/min/1.73m2) >90 >90 05/29/21 1245 - 05/29/21 1245 CHEMISTRY 05/29/21 1245 CHEMISTRY Phosphorus 2.5-4.5 (mg/dL) 1.2 05/30/21 1055 - 05/29/21 1245 OTHER 05/30/21 1055 05/29/21 1245 OTHER Age (Years) [age] Signed: Papito Dukes MD [facility] Clinical Management Consultingporcelain waxer [facility] [employer] Pager: [phone] Time Spent on Discharge: 25 minutes Services Ordered on Discharge: none documented in this encounter Discharge Instructions Frida Flores RN - 05/30/2021 Heart Failure Discharge Instructions Activity: Be as active as possible Break down tasks to small activities to avoid becoming overly tired Talk to your doctor before lifting more than 10 pounds Begin to exercise slowly and increase only as tolerated; refer to your education book Balance activity and rest periods Nutrition: Follow a low sodium (salt) diet Choose no added salt or low sodium foods; choose fresh foods as much as possible Avoid adding salt to food when cooking or at the table Read the nutrition facts labels and avoid foods with more than 300 mg of sodium per serving Medication: Make a list and schedule of the medications you take Keep a current list of your medications with you Take your medications as prescribed Avoid NSAIDs or Non-Steroidal Anti-Inflammatory Drugs (i.e. Advil, Ibuprofen, Motrin, etc.) Self-Care: Weigh yourself and write it down first thing in the morning after you empty your bladder and before you eat or drink Check for swelling of your feet, ankles, legs, and stomach Do your daily exercise If you smoke, stop Keep all follow-up appointments and bring your medications and weight log with you Review the Living Well with Heart Failure booklet for more information on caring for yourself or your loved one at home. Call Your Doctor or Health Medical Records Tech If You Have: Weight gain of more than 2 pounds overnight or 5 pounds in one week (or whatever weight gain youwere told to report by your doctor) New or increased swelling of your legs or ankles, swelling or pain in your stomach Decrease in amount you urinate Increased shortness of breath Increased cough with yellow or green sputum (mucus) Increased breathing trouble at night (waking up short of breath, needing more pillows to breathe) Feeling much more tired than usual Racing or pounding heart beat Dizziness Go To The Nearest Emergency Room or Call 911 If You Have: Shortness of breath so severe that you cannot catch your breath even while resting Tornado, foamy sputum (mucus) New problem sleeping; you need to sit straight up to sleep or are not able to sleep due to shortness of breath Severe chest pain that does not resolve with rest or Nitroglycerin New or increased confusion or cannot think clearly A continuous rapid or irregular heart beat Fainting or feeling to dizzy to stand up AttachmentsThe following attachments cannot be sent through Care Everywhere. Exercise for a Healthier Heart (German)documented in this encounter Medications at Time of Discharge Medication Sig Dispensed Refills Start Date End Date furosemide (LASIX) 40 mg Take 1 tablet (40 0 09/0 03/2021 tablet mg) by mouth 1 time per day Hold until PCP follow up pantoprazole (PROTONIX) 40 Take 1 tablet (40 60 tablet 0 09 /03/2021 06/29/2021 mg enteric coated mg) by mouth 2 tabletIndications: Duodenal times a day obstruction before meals HYDROcodone-acetaminophen Take 1 tablet by 0 (NORCO) 5-325 mg tablet mouth every 6 hours as needed for moderate pain metoclopramide (REGLAN) 10 Take 5 mg by 0 mg tablet mouth 4 times a day as needed for nausea or vomiting midodrine (PROAMATINE) 2.5 Take 2.5 mg by 0 mg tablet mouth 2 times a day before meals doxazosin (CARDURA) 2 mg Take 2 mg by 0 1 tablet mouth 1 time per day ondansetron (ZOFRAN ODT) 4 Take 4 mg by 0 021 mg dispersible tablet mouth Methylsulfonylmethane (MSM) Take 1,000 mg by 0 1000 MG TABS mouth 1 time per day calcium carbonate (TUMS) 500 Take 500 mg by 0 MG chewable tablet mouth 4 times a day as needed famotidine (PEPCID) 20 mg Take 1 tablet (20 0 tabletIndications: Duodenal mg) by mouth 1 obstruction time per day Biotin 58425 MCG TABS Take 10,000 mcg 0 by mouth 1 time per day letrozole (FEMARA) 2.5 mg Take 1 tablet 90 tablet 3 021 tabletIndications: Malignant (2.5 mg) by mouth neoplasm of overlapping 1 time per day sites of right breast in female, estrogen receptor positive (HCC) potassium chloride (KLOR-CON Take 1 tablet (20 90 tablet 0 02/12/2020 M20) 20 MEQ CR tablet mEq) by mouth 2 times a day vitamin D3, cholecalciferol, Take 1 tablet 30 tablet 0 01/22 1000 unit tabletIndications: (1,000 Units) by Hypocalcemia mouth 1 time per day simethicone (MYLICON, GAS-X) Take 2 tablets 30 each 1 80 MG CHEWIndications: (160 mg) by mouth Dyspepsia Every 4 hours as needed for flatulence magnesium oxide 250 MG TABS Take 250 mg by 0 mouth 1 time per day calcium carbonate-vitamin D Take 1 tablet by 60 tablet 11 (OSCAL 500 + VIT D) 500 mouth 3 times a mg-200 unit day with meals tabletIndications: Metastatic breast cancer (HCC), Bone metastasis (HCC) lactase (LACTAID) 3000 units Take 3,000 Units 0 TABS by mouth as needed for other (Specify) Cyanocobalamin (VITAMIN Take 5,000 mcg by 0 B-12) 5000 MCG LOZG mouth 1 time per day Multiple Vitamin Take 1 tablet by 0 (MULTI-VITAMIN) tablet mouth 1 time per day. documented as of this encounter Progress Notes Parviz Cuellar MD - 05/30/2021 10:33 AM CDT [facility] Progress Note Sabrina Retana : 1945 Admit Date: 05/26/2021 S: - No acute events overnight - Feeling much better this morning - Denies abdominal pain - Tolerating a CLD without n/v - Had UGI series yesterday O: Vital Signs Min/Max (last 24 hours) Flowsheet Row Name Min Max Temp 98 F (36.7 C) 98.9 F (37.2 C) BP: Systolic 123 137 BP: Diastolic 69 84 Pulse 71 78 Resp 14 16 SpO2 95 % 99 % General: Alert and conversing, no acute distress, resting comfortably Respiratory: Non-labored respirations Cardiac: RRR Abdomen: Soft, non-distended, non-tender, laparoscopic port site incisions well-healed Intake/Output Summary (Last 24 hours) at 05/30/2021 1036 Last data filed at 05/30/2021 0655 Gross per 24 hour Intake 1794 ml Output 0 ml Net 1794 ml Stool: BM x8 Labs: CBC: 3.8* \\ 11.4* / 152 / 36.0 \\ 05/27 0644 BMP: 141 111* 5* / 87 3.2* 21 0.62 \\ 05/29 1245 Imaging: XR Upper GI Series 05/29/2021: Moderate size hiatus hernia. Marked elicited gastroesophageal reflux. No definite evidence of high-grade stricture at the gastrojejunal anastomosis region. Mild parahilar, bibasilar segmental atelectasis and/or scarring versus consolidation from pneumonia versus aspiration inferior thorax. Correlation with dedicated PA lateral chest if clinical suspicion for acute or subacute pulmonic pathology. Minimal bilateral pleural effusions. Assessment: Sabrina Retana is a 75yr female who underwent palliative gastrojejunostomy with Dr. Joshua 04/07/21 for duodenal obstruction. She presented with persistent vomiting. She underwent EDG with dilation of the gastrojejunostomy anastomosis 05/27. On 05/29 an upper GI series was obtained, which demonstrated no persistent stricture of the gastrojejunostomy anastomosis. Plan: - No acute surgical intervention - Okay to advance diet as tolerated - Will follow up with Dr. Joshua in 2 weeks (ordered) - TRACS will sign off, please do not hesitate to call with any questions or concerns Parviz Cuellar MD General Surgery Resident Pager [phone] [place] Dukes MD - 05/29/2021 11:42 PM CDT [facility] Daily Progress Note Ms.Ellen Courtney Retana is a 75yr woman who presented complaining of nausea and vomiting Assessment/Plan: 1. Duodenal obstruction: noted and underwent recent Gastrojejunostomy for bypass. Surgery consultedand following. Care per their team at this time. Oral intake has been low since admission so recheck labs for possible electrolyte replacement. 2. Recent gastrojejunostomy with anastomotic stricture: noted and done recently for duodenal obstruction. Vomiting on admission so underwent endoscopy and noted to have a large amount of residual foodin the stomach. Also noted to have a stricture at the anastomosis with no signs of bleeding. GI continues to follow and surgery following as well. 3. Metastatic breast cancer: follows with [facility]. On Letrozole daily which we will continue. 4. Anxiety: monitor mood for now. Some recent adjustment reaction due to the surgery and the underlying reasons. 5. VTE: lovenox 6. Dispo: pending outcome from the upper GI series and plan from surgery/GI Subjective: Tolerating liquids well. Denies nausea, abdominal pain, fever, or chills. No BM. Objective: Vital signs in last 24 hours: Vitals: 05/29/21 0725 05/29/21 1213 05/29/21 1525 05/29/21 1914 BP: 134/68 132/73 127/80 131/69 Pulse: 66 76 71 71 Resp: 16 16 14 16 Temp: 98 F (36.7 C) 98.4 F (36.9 C) 98 F (36.7 C) 98.4 F (36.9 C) SpO2: 96% 97% 98% 99% Weight: Height: Weight change: Intake/Output Summary (Last 24 hours) at 05/29/2021 2342 Last data filed at 05/29/2021 2244 Gross per 24 hour Intake 2562 ml Output 0 ml Net 2562 ml Vitals reviewed. General: resting in bed, NAD HEENT: PERRL, EOMI, no scleral icterus Cardiac: RRR, no rubs, murmurs or gallops Pulm: clear to auscultation bilaterally, no wheezes, rales, or rhonchi Abd: soft, minimal epigastric abdominal pain, nondistended, BS present Ext: warm and well perfused, right arm compression dressing intact. Brisk cap refill to the fingersbilaterally. Neuro: alert and oriented X3, cranial nerves II-XII grossly intact, strength and sensation to light touch equal in bilateral upper and lower extremities Lab Results: Basic Metabolic Panel: Recent Labs 05/27/21 0643 05/29/21 1245 NA 141 141 POTASSIUM 4.2 3.2* CL 110 111* CO2 19* 21 BUN 9 5* CREATSERUM 0.67 0.62 CA 8.1* 7.5* MAGNESIUM -- 2.0 PHOSPHORUS -- 1.2* Recent Labs 05/27/21 1141 05/29/21 1245 GLUCOSE 105* 87 Liver Function Tests: Recent Labs 05/27/21 0643 AST 14 ALT 9 ALKPHOS 54 BILITOTAL 0.4 PROTEINTOTAL 5.7* ALBUMIN 3.2* CBC: Recent Labs 05/27/21 0644 WBC 3.8* NEUTROABS 3.2 HEMOGLOBIN 11.4* HEMATOCRIT 36.0 MCV 89.3 PLTCOUNT 152 Coagulation: Recent Labs 05/27/21 0643 PT 14.7* INR 1.2* Medications: I have reviewed her medications. Current Facility-Administered Medications Medication Dose Route Frequency hEParin 100 units/ mL injection for heplock FLUSH 5 mL IV PRN per parameter And [START ON 05/30/2021] sodium chloride 0.9% flush (adult) 10 mL 10 mL IV Daily and prn potassium phosphate 45 mmol in dextrose 5% 500 mL 45 mmol IV 1 time nalOXone (NARCAN) injection solution (vial) 0.4 mg 0.4 mg Injection Every 2 minutes prn nalOXone (NARCAN) injection solution (vial) 0.2 mg 0.2 mg Injection Every 2 minutes prn pantoprazole (PROTONIX) for injection 40 mg vial 40 mg IV 2 times a day doxazosin (CARDURA) tablet 2 mg 2 mg Oral Daily letrozole (FEMARA) tablet 2.5 mg 2.5 mg Oral at bedtime magnesium oxide tablet 250 mg 250 mg Oral daily potassium chloride (KLOR-CON M20) CR tablet 20 mEq 20 mEq Oral 2 times a day acetaminophen (TYLENOL) tablet 650 mg 650 mg Oral Every 4 hours prn prochlorperazine (COMPAZINE) 10 mg/2 mL injection solution 5 mg 5 mg IV Every 6 hours prn sodium chloride 0.9% flush (adult) 10 mL 10 mL IV 2 times a day and prn senna-docusate sodium (SENOKOT-S;PERICOLACE) tablet 1 tablet 1 tablet Oral 2 times a day prn bisacodyl (DULCOLAX) suppository 10 mg 10 mg Rectal 1 time a day prn enoxaparin (LOVENOX) subcutaneous injection solution 40 mg 40 mg Subcutaneous at bedtime sodium chloride 0.9% IV solution IV Continuous HYDROmorphone (DILAUDID) injection solution (conc: 0.5 mg/0.5mL) 0.5 mg 0.5 mg IV Every 1 hour prn ondansetron (ZOFRAN) injection solution 4 mg 4 mg IV Every 4 hours prn Papito Dukes MD [facility] Clinical Management Consultingporcelain waxer [facility] [employer] Pager: [phone] ancho Rico MD - 05/29/2021 6:48 AM CDT Surgery Progress Note Admit Date: 05/26/2021 Hospital day: 1 Subjective Remains hemodynamically stable Denies nausea, emesis No chest pain or SOB No further complaints Objective Vitals: Vital Signs Min/Max (last 24 hours) Flowsheet Row Name Min Max Temp 97.9 F (36.6 C) 99.1 F (37.3 C) BP: Systolic 110 125 BP: Diastolic 64 74 Pulse 66 78 Resp 16 18 SpO2 95 % 97 % General Appearance: adult well appearing female, in no acute distress. Neurological: Awake and alert, cranial nerves grossly intact, no appear muscular weakness Eyes: Full occular movements grossly observed Resp: On room air saturating well. Clear to auscultation bilaterally with symmetric chest rise, no wheeze, rhonchi rales. Heart: Regular rate and rhythm, no murmurs rubs or gallops. Abdomen: Soft, non distended, no diffuse tenderness. Labs: 3.8* \\ 11.4* / 152 / 36.0 \\ 05/27 0644 BMP: 141 110 9 / 105* 4.2 19* 0.67 \\ 05/27 0643-05/27 1141 Lab Results Component Value Date PHART 7.32 (L) 04/07/2021 [id number] 53 (H) 04/07/2021 CO2 19 (L) 05/27/2021 PO2ART 316 (H) 04/07/2021 [id number] 100 (H) 04/07/2021 Assessment and Plan 75yr yo female who underwent palliative gastrojejunostomy with Dr. Joshua on 04/07/2021 in setting of duodenal obstruction. Patient underwent EGD on 05/27. Will obtain UGI today. [place] M.D. General Surgery Resident | [facility] [id number] Associated attestation - Sarah Joshua MD - 05/29/2021 11:22 AM CDT Awaiting UGI today for better understanding of anatomy and enteric flow. May or may not require a stent. Sarah Joshua MD, PhD, MPH, FACS, FSSO bridge construction inspector Division of Surgical Oncology Eagle Westbrook MD - 05/28/2021 7:15 AM CDT [facility] PATIENT NAME: SABRINA RETANA I. GEO: [id number] This is a 75-year-old lady with no known history of metastatic right breast cancer with bone metastases and liver metastases and recent history of gastrojejunostomy for what I understand was duodenal obstruction secondary to tissue hypertrophy. Biopsies were negative for malignancy. There was some co ncern for possible celiac disease. Postoperatively, she was doing fairly well until yesterday when she presented with recurrent bouts of severe nausea, vomiting and moderate degree of abdominal discomfort she had a CT scan of the abdomen and pelvis which ruled out a complete bowel obstruction as the contrast did move through the jejunum and there was no definite jejunal dilation. Has some generalized aches and pains which are chronic.upper endoscopy revealed moderate stenosis at the gj anastamosis site,inflamation and erosions in the stomach and large amount of fodd residue in the stomach. REVIEW OF SYSTEMS: GENERAL: No fever or chills. HEENT: No sore throat or nose. CARDIOVASCULAR: No chest pain, palpitation. GASTROINTESTINAL: Nausea and vomiting much better. MUSCULOSKELETAL SYSTEM: No joint swelling. exam no acute distress cvs s1s2 resp lungs clear abdo soft ,resp, lungs clear Memory Care Program Resident no deficits,skin no rashes ASSESSMENT AND PLAN: 1. Severe bout of nausea, vomiting and abdominal discomfort in a lady with a recent history of gastrojejunostomy bypass surgery. upper endoscopy revealed moderate stenosis at the gj anastamosis site,inflamation and erosions in the stomach and large amount of fodd residue in the stomach..Tracs consul erasmo.continue iv protonix.start full liquid diet.With stenosis and solid food not moving from the stomach,may need to be on fci full liquid diet 2. Metastatic breast cancer, on letrozole which will be continued. She follows with Dr. Braun as anoutpatient. 3. Hypokalemia, being replaced with potassium chloride. 4.low mood and increased anxiety ,probably situational with known diagnosis of metastatic cancer which appears to be stable on hormonal suppression,recent hospitalizations,family requesting psychiatry consultation,inpatient probably not helpful,will start with psychology for counseling and evaluation Eagle Westbrook MD Eagle Westbrook MD - 05/27/2021 1:00 AM CDT [facility] PATIENT NAME: SARBINA RETANA I. DATE OF SERVICE: 05/27/2021 GEO: [id number] This is a 75-year-old lady with no known history of metastatic right breast cancer with bone metastases and liver metastases and recent history of gastrojejunostomy for what I understand was duodenal obstruction secondary to tissue hypertrophy. Biopsies were negative for malignancy. There was some co ncern for possible celiac disease. Postoperatively, she was doing fairly well until yesterday when she presented with recurrent bouts of severe nausea, vomiting and moderate degree of abdominal discomfort she had a CT scan of the abdomen and pelvis which ruled out a complete bowel obstruction as the contrast did move through the jejunum and there was no definite jejunal dilation. She denied taking any recooked food, etc. She feels better today. She did receive some nausea medications. She was initiated on some intravenous Decadron 8 mg t.i.d. which equates to about 100 mg of Solu-Medrol a day. REVIEW OF SYSTEMS: GENERAL: No fever or chills. HEENT: No sore throat or nose. CARDIOVASCULAR: No chest pain, palpitation. GASTROINTESTINAL: Nausea and vomiting much better. MUSCULOSKELETAL SYSTEM: No joint swelling. exam no acute distress cvs s1s2 resp lungs clear abdo soft ,resp, lungs clear Memory Care Program Resident no deficits,skin no rashes ASSESSMENT AND PLAN: 1. Severe bout of nausea, vomiting and abdominal discomfort in a lady with a recent history of gastrojejunostomy bypass surgery. I will request for a GI consultation to consider an upper endoscopy to make sure there is no edema, partial narrowing or ulceration of the anastomotic site. Will cover her with intravenous pantoprazole 40 b.i.d. Will discontinue the Decadron as it could worsen any typeof anastomotic edema or ulceration. Will keep her n.p.o. for possible procedure. If GI services decides that no procedure needs to be done, then will reinitiate her back on soft diet. Will reinitiate her back on soft diet. 2. Metastatic breast cancer, on letrozole which will be continued. She follows with Dr. Kareem chase outpatient. 3. Hypokalemia, being replaced with potassium chloride. Eagle Westbrook MD Receipt: [id number] Trans ID: [id number] CENTRAL SERVICE TECH CENTRAL SERVICE TECH Thiago Adams PHARM HARPOON ENGAGEMENT PLANNING OPERATOR - 05/26/2021 7:06 PM CDT 05/26/2021 7:06 PM CDT - Patient was seen by pharmacy. HOME MEDICATIONS have been reconciled and updated to match the patient's home usage. Medications added: norco 5-325 tab; metoclopramide 10 mg tab; midodrine 2.5 mg tab Medications removed: none Medications changed: added directions for doxazosin; updated famotidine usage from Once Daily to prn Prior to Admission Medications Prescriptions Last Dose Informant Patient Reported? Taking? Biotin 79124 MCG TABS 05/25/2021 at am Yes Yes Sig: Take 10,000 mcg by mouth 1 time per day Cyanocobalamin (VITAMIN B-12) 5000 MCG LOZG 05/25/2021 at Unknown time Self Yes Yes Sig: Take 5,000 mcg by mouth 1 time per day HYDROcodone-acetaminophen (NORCO) 5-325 mg tablet 05/25/2021 at pm Yes Yes Sig: Take 1 tablet by mouth every 6 hours as needed for moderate pain Methylsulfonylmethane (MSM) 1000 MG TABS 05/25/2021 at pm Yes Yes Sig: Take 1,000 mg by mouth 1 time per day Multiple Vitamin (MULTI-VITAMIN) tablet 05/25/2021 at pm Self Yes Yes Sig: Take 1 tablet by mouth 1 time per day. calcium carbonate (TUMS) 500 MG chewable tablet 05/26/2021 at am Yes Yes Sig: Take 500 mg by mouth 4 times a day as needed calcium carbonate-vitamin D (OSCAL 500 + VIT D) 500 mg-200 unit tablet 05/25/2021 at pm Self Yes Yes Sig: Take 1 tablet by mouth 3 times a day with meals doxazosin (CARDURA) 2 mg tablet 05/25/2021 at am Yes Yes Sig: Take 2 mg by mouth 1 time per day famotidine (PEPCID) 20 mg tablet Past Month at Unknown time No Yes Sig: Take 1 tablet (20 mg) by mouth 1 time per day Patient taking differently: Take 20 mg by mouth 1 time a day as needed for heartburn furosemide (LASIX) 40 mg tablet 05/25/2021 at am Yes Yes Sig: TAKE 1 TABLET (40MG) BY MOUTH DAILY lactase (LACTAID) 3000 units TABS Past Month at Unknown time Self Yes Yes Sig: Take 3,000 Units by mouth as needed for other (Specify) letrozole (FEMARA) 2.5 mg tablet 05/25/2021 at pm No Yes Sig: Take 1 tablet (2.5 mg) by mouth 1 time per day magnesium oxide 250 MG TABS 05/25/2021 at am Self Yes Yes Sig: Take 250 mg by mouth 1 time per day metoclopramide (REGLAN) 10 mg tablet Past Month at Unknown time Yes Yes Sig: Take 5 mg by mouth 4 times a day as needed for nausea or vomiting midodrine (PROAMATINE) 2.5 mg tablet 05/25/2021 at pm Yes Yes Sig: Take 2.5 mg by mouth 2 times a day before meals ondansetron (ZOFRAN ODT) 4 mg dispersible tablet Greater than 1 Month at Unknown time Yes Yes Sig: DISSOLVE 1 TABLET (4MG) BY MOUTH EVERY SIX HOURS NEEDED FOR NAUSEA/VOMITING potassium chloride (KLOR-CON M20) 20 MEQ CR tablet 05/25/2021 at pm Yes Yes Sig: Take 1 tablet (20 mEq) by mouth 2 times a day simethicone (MYLICON, GAS-X) 80 MG CHEW Past Week at Unknown time Self No Yes Sig: Take 2 tablets (160 mg) by mouth Every 4 hours as needed for flatulence vitamin D3, cholecalciferol, 1000 unit tablet 05/25/2021 at 1200 No Yes Sig: Take 1 tablet (1,000 Units) by mouth 1 time per day Facility-Administered Medications: None DILAN Henry HARPOON ENGAGEMENT PLANNING OPERATOR documented in this encounter H&P Notes Mark Anthony Marte MD - 05/26/2021 5:22 PM CDT Hospital Admission History and Physical Assessment / Plan Active Problems: COPD (chronic obstructive pulmonary disease) (HCC) Malignant neoplasm of overlapping sites of right breast in female, estrogen receptor positive (HCC) Pleural effusion, malignant Duodenal obstruction Nausea and vomiting 75-year-old female with a history of of stage IV breast cancer triple positive who presented to hospital with nausea vomiting. On March 31, 2020 when the patient was admitted to the hospital secondary to abdominal discomfort nausea vomiting. At that time the patient was found to have thickening of theproximal duodenum and underlying hepatic cirrhosis and cholelithiasis. She was eventually found to have a duodenal obstruction. She underwent robotic gastrojejunostomy and did relatively well. Unfortunately over the past 24 to 48 hours she had severe acute nausea vomiting. She was vomiting her breakfast and unable to take her pills. She came to the ER. In the ER she underwent labs which were normal. Lipase was negative. CT of the abdomen did not show any obstruction or acute findings. Oral contrast went down all the way to the colon. There is no dilation of the small bowel. Patient was admitted for observation status for intractable nausea vomiting and abdominal pain. Assessment plan Intractable nausea vomiting possibly related to gastritis in the setting of recent surgical gastrojejunostomy. Patient has a known history of breast cancer that is metastatic. She could also be having some symptoms related to her cancer. Clinically the patient does not appear to be obstructed. Patient is on clear liquid diet and advance as tolerated. We will continue IV fluids. I will also giveher Decadron and Reglan. I followed up with the patient a few hours later and she has significant provement of her symptoms. Diet has been ordered advance as tolerated. [id number]\\ History of stage IV breast cancer on Letrozole History DVT prophylaxis Lovenox IV fluids continued Code level 1 x HPI / History / ROS HPI History Prior to Admission Medications Prescriptions Last Dose Informant Patient Reported? Taking? Biotin 23299 MCG TABS Yes No Sig: Take 10,000 mcg by mouth 1 time per day Cyanocobalamin (VITAMIN B-12) 5000 MCG LOZG Self Yes No Sig: Take 5,000 mcg by mouth 1 time per day Methylsulfonylmethane (MSM) 1000 MG TABS Yes No Sig: Take 1,000 mg by mouth 1 time per day Multiple Vitamin (MULTI-VITAMIN) tablet Self Yes No Sig: Take 1 tablet by mouth 1 time per day. calcium carbonate (TUMS) 500 MG chewable tablet Yes No Sig: Take 500 mg by mouth 4 times a day as needed calcium carbonate-vitamin D (OSCAL 500 + VIT D) 500 mg-200 unit tablet Self Yes No Sig: Take 1 tablet by mouth 3 times a day with meals doxazosin (CARDURA) 2 mg tablet Yes No famotidine (PEPCID) 20 mg tablet No No Sig: Take 1 tablet (20 mg) by mouth 1 time per day furosemide (LASIX) 40 mg tablet Yes No Sig: TAKE 1 TABLET (40MG) BY MOUTH DAILY lactase (LACTAID) 3000 units TABS Self Yes No Sig: Take 3,000 Units by mouth as needed for other (Specify) letrozole (FEMARA) 2.5 mg tablet No No Sig: Take 1 tablet (2.5 mg) by mouth 1 time per day magnesium oxide 250 MG TABS Self Yes No Sig: Take 250 mg by mouth 1 time per day ondansetron (ZOFRAN ODT) 4 mg dispersible tablet Yes No Sig: DISSOLVE 1 TABLET (4MG) BY MOUTH EVERY SIX HOURS NEEDED FOR NAUSEA/VOMITING potassium chloride (KLOR-CON M20) 20 MEQ CR tablet Yes No Sig: Take 1 tablet (20 mEq) by mouth 2 times a day simethicone (MYLICON, GAS-X) 80 MG CHEW Self No No Sig: Take 2 tablets (160 mg) by mouth Every 4 hours as needed for flatulence vitamin D3, cholecalciferol, 1000 unit tablet No No Sig: Take 1 tablet (1,000 Units) by mouth 1 time per day Facility-Administered Medications: None Allergies Allergen Reactions Penicillin Hives (High) Has tolerated 1st, 2nd, and 3rd generation cephalosporins Tetracyclines Hives (High) Arimidex [Anastrozole] Rash Aspirin [...] right Past Surgical History: Procedure Laterality Date LAP GASTRIC RESECTION ROBOTIC N/A 04/07/2021 Procedure: JARON BLUE LAPAROSCOPIC GASTROJEJUNOSTOMY BYPASS;; Surgeon: Sarah Joshua MD SURGERY lipoma removal left upper back TONSILLECTOMY age 7 TUBAL LIGATION UPPER ENDOSCOPY N/A 04/01/2021 Procedure: UPPER ENDOSCOPY;; Surgeon: Jose Olson MD Family History Problem Relation Age of Onset Hypertension Father Heart Attack Father 70 possibly had previous DE Hypertension Mother Diabetes Mother Hx Type ll Obesity Brother had gastric bypass which resolved his HTN, diabetes. 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 HENT: Negative. Respiratory: Negative. Gastrointestinal: Positive for abdominal distention, nausea and vomiting. Endocrine: Negative. Genitourinary: Negative. Musculoskeletal: Negative. Skin: Negative. Neurological: Positive for weakness. Hematological: Negative. Psychiatric/Behavioral: Negative. Physical / Results Current Vital Signs Temp: 98.3 F (36.8 C) BP: 129/83 SpO2: 96 % Resp: 13 Pulse: 89 Pain Ratin Physical Exam HENT: Head: Normocephalic. Cardiovascular: Rate and Rhythm: Normal rate. Pulmonary: Effort: Pulmonary effort is normal. Abdominal: General: There is distension. Musculoskeletal: General: Normal range of motion. Cervical back: Normal range of motion. Skin: General: Skin is warm. Neurological: Mental Status: She is alert and oriented to person, place, and time. Medical Decision Making I have: Ordered laboratory, radiology or other diagnostic tests. Independently visualized and interpreted an image, tracing or specimen previously or subsequently interpreted by another provider. Discussed results of laboratory, radiology or other diagnostic tests with the physician who performed or interpreted the study. Obtained/reviewed old records from [place] or elsewhere (details outlined elsewhere in note). Obtained history from a person other than the patient (details outlined elsewhere in note). Discussed case with another provider (details outlined elsewhere in note). A total of 75 minutes was spent with the patient or on the floor today, greater than 50% of which was spent in counseling regarding today's findings/assessment/plan and in coordination of care, chart review, medical decision making, and documentation documented in this encounter Consult Notes Piper Chaudhary, PhD - 05/30/2021 1:53 PM CDTAssociated Order(s): CONSULT PSYCHOLOGY Briefly visited with patient on today's date. She presents with euthymic and pleasant affect and denies any concerns about her mood. As such, a formal evaluation was not completed. She is regularly seen at [facility] for infusions and will reach out to her doctor there should she develop depressed or anxious mood. Psychology will sign off. Yousuf Iabrra MD - 05/28/2021 10:29 AM CDT Sabrina Valdez Lainey 1945 [id number] Consult CC: Nausea and vomiting, abdominal pain. HPI: 75yr yo female who underwent palliative gastrojejunostomy with Dr. Joshua on 04/07/2021 in setting of duodenal obstruction. Patient has history of triple- positive stage IV breast cancer. Her cancer has been stable on letrozole. At time of surgery biopsies of duodenal lesion were negative for malignancy.She recovered as anticipated from surgery and has been well since, tolerating good PO without any difficulty until 05/26 when she developed nausea and vomiting and was admitted to [facility] Despite imaging which demonstrated passage of oral contrast to distal small bowel, EGD on 05/27 demonstrated large amount of retained food in gastric body and fundus. Dilation of gastrojejunostomy was undertaken (see EGD findings below). Severely stenotic duodenal bulb was visualized; this was not traversed with scope (see EGD report below). Subsequent to GI procedure last evening and this morning patient has felt significant symptom relief. She tolerated clear liquid diet and advanced to full liquid diet which she has also tolerated. Not currently complaining of nausea, emesis or abdominal pain. ROS: Review of Systems Constitutional: Negative for chills, fever, malaise/fatigue and weight loss. HENT: Negative for congestion. Respiratory: Negative for cough, shortness of breath and wheezing. Cardiovascular: Negative for chest pain and palpitations. Gastrointestinal: Negative for abdominal pain, nausea and vomiting. Genitourinary: Negative for dysuria, frequency, hematuria and urgency. Musculoskeletal: Positive for joint pain. Negative for back pain and myalgias. Neurological: Negative for dizziness, focal weakness and headaches. ALLERGIES: Allergies Allergen Reactions Penicillin Hives (High) Has tolerated 1st, 2nd, and 3rd generation cephalosporins Tetracyclines Hives (High) Arimidex [Anastrozole] Rash Aspirin Tachycardia Ciprofloxacin Unknown/Not Verified Influenza Vaccines Other (Specify in Comments) Parasethesia Lactose [Milk/Dairy Products] Stomach Pain Pt to self monitor. Macrodantin [Nitrofurantoin] Rash Singulair [Montelukast Sodium] Other (Specify in Comments) Loss of appetite Sulfa Drugs Other (Specify in Comments) Stiff joints MEDICATIONS: No current facility-administered medications on file prior to encounter. Current Outpatient Medications on File Prior to Encounter Medication Sig Dispense Refill HYDROcodone-acetaminophen (NORCO) 5-325 mg tablet Take 1 tablet by mouth every 6 hours as neededfor moderate pain metoclopramide (REGLAN) 10 mg tablet Take 5 mg by mouth 4 times a day as needed for nausea or vomiting midodrine (PROAMATINE) 2.5 mg tablet Take 2.5 mg by mouth 2 times a day before meals doxazosin (CARDURA) 2 mg tablet Take 2 mg by mouth 1 time per day furosemide (LASIX) 40 mg tablet Take 40 mg by mouth 1 time per day ondansetron (ZOFRAN ODT) 4 mg dispersible tablet Take 4 mg by mouth Methylsulfonylmethane (MSM) 1000 MG TABS Take 1,000 mg by mouth 1 time per day calcium carbonate (TUMS) 500 MG chewable tablet Take 500 mg by mouth 4 times a day as needed famotidine (PEPCID) 20 mg tablet Take 1 tablet (20 mg) by mouth 1 time per day (Patient taking differently: Take 20 mg by mouth 1 time a day as needed for heartburn ) 0 Biotin 63079 MCG TABS Take 10,000 mcg by mouth 1 time per day letrozole (FEMARA) 2.5 mg tablet Take 1 tablet (2.5 mg) by mouth 1 time per day 90 tablet 3 potassium chloride (KLOR-CON M20) 20 MEQ CR tablet Take 1 tablet (20 mEq) by mouth 2 times a day90 tablet 0 vitamin D3, cholecalciferol, 1000 unit tablet Take 1 tablet (1,000 Units) by mouth 1 time per day 30 tablet 0 simethicone (MYLICON, GAS-X) 80 MG CHEW Take 2 tablets (160 mg) by mouth Every 4 hours as neededfor flatulence 30 each 1 magnesium oxide 250 MG TABS Take 250 mg by mouth 1 time per day calcium carbonate-vitamin D (OSCAL 500 + VIT D) 500 mg-200 unit tablet Take 1 tablet by mouth 3 times a day with meals 60 tablet 11 lactase (LACTAID) 3000 units TABS Take 3,000 Units by mouth as needed for other (Specify) Cyanocobalamin (VITAMIN B-12) 5000 MCG LOZG Take 5,000 mcg by mouth 1 time per day Multiple Vitamin (MULTI-VITAMIN) tablet Take 1 tablet by mouth 1 time per day. PMHx: Past Medical History: Diagnosis Date Breast cancer (HCC) CHF (congestive heart failure) (HCC) COPD (chronic obstructive pulmonary disease) (HCC) Degenerative joint disease of right hip Hyperlipidemia Hypertension Pleural effusion on right PSHx: Past Surgical History: Procedure Laterality Date LAP GASTRIC RESECTION ROBOTIC N/A 04/07/2021 Procedure: XI [place] LAPAROSCOPIC GASTROJEJUNOSTOMY BYPASS;; Surgeon: Sarah Joshua MD SURGERY lipoma removal left upper back TONSILLECTOMY age 7 TUBAL LIGATION UPPER ENDOSCOPY N/A 04/01/2021 Procedure: UPPER ENDOSCOPY;; Surgeon: Jose Olson MD SOCHx: Social History Socioeconomic History Marital status: Spouse name: Not on file Number of children: 3 Years of education: 12 Highest education level: Not on file 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 Diabetes Daughter lost >100 lbs which resolved her diabetes PHYSICAL EXAM: Vitals: 05/28/21 0703 BP: 111/64 Pulse: 66 Resp: 16 Temp: 97.9 F (36.6 C) SpO2: 96% General: Cooperative. Pleasant. Not in any acute distress. HEENT: Normocephalic. No asymmetry of facial expression. Respiratory: Non labored respirations and Good respiratory excursion Cardiac: RRR Abdomen: Soft, Nontender with palpation and No distension Extremities: Palpable radial pulses bilaterally, Palpable DP pulses bilaterally and Feet are both warm. RUE moderately edematous, at baseline per patient. Neuro: A&O, CN intact and No asymmetry in motor or sensory function noted in face, upper extremities, or lower extremities. Skin: Warm and Dry Labs: Lab Results Component Value Date WBC 3.8 (L) 05/27/2021 NUCRBC 0 05/27/2021 RBC 4.03 05/27/2021 HEMOGLOBIN 11.4 (L) 05/27/2021 HEMATOCRIT 36.0 05/27/2021 MCV 89.3 05/27/2021 MCH 28.3 05/27/2021 MCHC 31.7 05/27/2021 RDW 17.4 (A) 12/25/2018 PLTCOUNT 152 05/27/2021 NEUTROPCT 84.9 05/27/2021 BANDPCT 10 12/18/2018 LYMPHSPCT 13.5 05/27/2021 MONOSPCT 0.5 05/27/2021 EOSPCT 0.0 05/27/2021 BASOPHILPCT 0.3 05/27/2021 METAMYELOPCT 1 12/18/2018 MYELOCYTEPCT 1.0 12/11/2018 Lab Results Component Value Date CO2 19 (L) 05/27/2021 GLUCOSE 105 (H) 05/27/2021 BUN 9 05/27/2021 CREATSERUM 0.67 05/27/2021 CA 8.1 (L) 05/27/2021 PHOSPHORUS 3.0 04/14/2021 ALBUMIN 3.2 (L) 05/27/2021 NA 141 05/27/2021 POTASSIUM 4.2 05/27/2021 CL 110 05/27/2021 Imaging: Procedure: Upper GI endoscopy Providers: JOSE OLSON MD, GURVINDER PAREDES RN Medicines: Monitored Anesthesia Care Complications: No immediate complications. Estimated Blood Loss: [...] anticoagulant or antiplatelet agents. ASA Grade Assessment: II - A patient with mild systemic disease. After reviewing the risks and benefits, the patient was deemed in satisfactory condition to undergo the procedure. After obtaining informed consent, the endoscope was passed under direct vision. Throughout the procedure, the patient's blood pressure, pulse, and oxygen saturations were monitored continuously. The Endoscope [id number] was introduced through the mouth, and advanced to the efferent jejunal loop. The upper GI endoscopy was accomplished without difficulty. The patient tolerated the procedure well. Findings: The examined esophagus was normal. A large amount of food (residue) was found in the gastric fundus and in the gastric body. The procedure was limited to reduce risk of aspiration given significant retained contents that could not be cleared with scope as the particulate matter was very large. Diffuse moderate inflammation characterized by congestion (edema), erosions, erythema and friability was found in the entire examined stomach. Evidence of a gastrojejunostomy was found in the gastric body. This was characterized by erythema, friable mucosa, an intact appearance, moderate stenosis, an intact staple line and the presence of no stomal ulceration. A TTS dilator was passed through the scope. Dilation with a 10-11-12 mm anastomotic balloon dilator was performed. An acquired severe stenosis was found in the duodenal bulb and was non-traversed as the stenosis has already been evaluated and is the reason for the palliative bypass, but it appeared severely stenotic and unlikely to be contributing to gastric emptying in any significant way and attempting to pass the scope thorugh would risk aspiration given the significant retained gastric contents. Impression: - Normal esophagus. - A large amount of food (residue) in the stomach. Scope had to be limited to minimal maneuvering to reduce risk of aspiration given large particulate matter. Dilation of anastomosis was performed, but did not attempt to traverse the duodenal stricture today. - Gastritis. - A gastrojejunostomy was found, characterized by friable mucosa, an intact appearance, erythema, moderate stenosis, an intact staple line with visible stable and no stomal ulceration. The anastomosis was dilated, but even at 12mm, there appeared to be some breakdown of the anastomotic line and given friable appearance in inmmunocompromised patient, did not attempt to dilate larger than 12mm and will discuss further management options with the surgeon. - Acquired duodenal stenosis was noted, knwon from previous evaluations. Not traversed given significant retained contents and need to minimize gastric manipulation with unprotected airway. - No specimens collected. Recommendation: - Observe patient's clinical course following today's procedure with therapeutic intervention. - Full liquid diet and if tolerated, can advance to low residual diet after a few days. - If advancing diet not tolerated, can consider repeat EGD for placement of Axios stent vs larger, more agressive dilation after discussion with surgeon given the anastomosis appeared friable even with minimal dilation to 12mm today. - GI will follow peripherally in the event repeat EGD intervention is required prior to discharge. Jose Olson MD JOSE OLSON MD 05/27/2021 6:07:47 PM This report has been signed electronically.JOSE OLSON MD Number of Addenda: 0 Note Initiated On: 05/27/2021 5:27 PM Total Procedure Duration Time 0 hours 6 minutes 48 seconds Scope In: 5:37:40 PM Scope Out: 5:44:28 PM EXAM: CT ABDOMEN PELVIS WITH CONTRAST INDICATION: Nausea/vomiting, Bowel obstruction suspected, abdominal pain, n/v and decreased stools. hx of duodenal obstruction, recent gastrojujenostomy. metastatic breast CA. ? obstruction TECHNIQUE: CT imaging was performed through the abdomen and pelvis following IV contrast. COMPARISON(S): 04/16/2021 FINDINGS: Lower Chest: Small right pleural effusion has decreased compared to the prior exam with persistent adjacent rounded atelectasis in the right lower lobe. Left lower lung is grossly clear. Liver: Cirrhotic appearing liver without focal lesions. Similar appearance of mildly prominent bile ducts in segment 4. Gallbladder: Multiple stones again seen in the gallbladder. Bile ducts: Common bile duct is not significantly dilated. Pancreas: Normal Spleen: Borderline enlarged up to 12.5 cm craniocaudal. Adrenal glands: Normal Kidneys: 1.2 cm cyst in the mid right kidney, previously characterized as hemorrhagic/proteinaceous.1.8 cm cyst in the mid left kidney. No hydronephrosis. No nephrolithiasis. Ureters: Normal Bladder: Bladder is moderately distended. No focal lesions. Pelvic viscera: Fibroid uterus is similar compared to the prior exam. No suspicious adnexal mass. Stomach: Not distended. Moderate sized hiatal hernia. Gastrojejunostomy. Small bowel: Normal caliber Colon: Mild amount of air and stool in the colon. Appendix: Not identified. Vascular: Main portal vein is dilated up to 2.0 cm. No findings suspicious for thrombosis. Probable perisplenic varices. Lymph nodes: No lymphadenopathy. Peritoneum: No free fluid or pneumoperitoneum. Abdominal wall: Normal Bones: No acute fracture. Extensive metastatic disease throughout the bones has not significantly changed compared to the prior exam. IMPRESSION: 1. No acute findings in the abdomen/pelvis. Contrast passed to the distal small bowel and colon without marked dilation of the small bowel. 2. Cirrhotic appearing liver without suspicious focal lesion. Borderline splenomegaly. 3. Small right pleural effusion has decreased compared to the prior exam. 4. Bladder is moderately distended without focal mass. 5. Extensive metastatic disease in the bones again seen. Finalized by: Rashaun Jack MD on 05/26/2021 2:34 PM CDT ASSESSMENT: Sabrina Retana is a 75yr female with history of duodenal stenosis causing gastric outlet obstruction s/p palliative gastrojejunostomy who now has recurrent symptoms and stenosis of gastrojejunostomy. She underwent balloon dilation of the gastrojejunostomy with subsequent significant relief of symptoms. Patient Active Problem List Diagnosis Essential hypertension [...] of right upper extremity Pleural effusion, malignant Duodenal obstruction Nausea and vomiting PLAN: Xray Upper GI Will discuss with GI possible duodenal stenting, possible consideration of revision of GJ. Cares per primary team. Gerry Franklin MD Surgery Resident 05/28/21 Pager [phone] Associated attestation - Sarah Joshua MD - 05/29/2021 11:23 AM CDT Awaiting UGI to better understand enteric flow. May or may not require a stent. Sarah Joshua MD, PhD, MPH, FACS, FSSO bridge construction inspector Division of Surgical Oncology Jose Olson MD - 05/27/2021 5:23 PM CDT Consult Note Consults Assessment / Plan Active Problems: COPD (chronic obstructive pulmonary disease) (HCC) Malignant neoplasm of overlapping sites of right breast in female, estrogen receptor positive (HCC) Pleural effusion, malignant Duodenal obstruction Nausea and vomiting Recent palliative gastrojejunostomy for bypass of gastric outlet obstruction now with recalcitrant nausea and vomiting and imaging evidence of obstruction at the gastric outlet/gastrojejunostomy with retained contents in the stomach despite passage of some contrast into the small intestine. Discussedfurther evaluation options with the patient and we will proceed with EGD evaluation now. Given the significant amount of retained contents, it is possible that I may not be able to clear the stomach enough to evaluate or intervene on any obstructive process, but we will attempt to do so or at least place a feeding tube past the area of stenosis while we allow the stomach to empty over the next few days. Recommendations: _Further evaluation with EGD now. Risks, goals, benefits and alternatives were discussed with the patient reflects understanding and agrees to proceed. Reason for Consult Gastric outlet obstruction HPI / History / ROS HPI 75-year-old female with known metastatic breast cancer who suffered from gastric outlet stenosis in the vicinity of the pylorus/duodenal bulb with biopsies not indicative of malignancy but concern for metastatic lesion to the vicinity of the stenosis treated palliatively with surgical bypass with gastrojejunostomy created approximately 1 month ago. Her chief complaint is recalcitrant nausea and vomiting onset within the last couple of days. Underwent CT imaging showing dilated gastric lumen with retained contents but passage of some contrast into the small bowel without evidence of small bowel obstruction concerning for gastric outlet obstruction. Has some associated abdominal discomfort that has improved since admission. Her nausea and vomiting has also abated since admission. Denies fevers, chills, weight loss, rash, jaundice, chest pain, shortness of breath, melena, blood in her emesis. History Current Facility-Administered Medications Medication Dose Route Frequency pantoprazole (PROTONIX) for injection 40 mg vial 40 mg IV 2 times a day doxazosin (CARDURA) tablet 2 mg 2 mg Oral Daily letrozole (FEMARA) tablet 2.5 mg 2.5 mg Oral at bedtime magnesium oxide tablet 250 mg 250 mg Oral daily potassium chloride (KLOR-CON M20) CR tablet 20 mEq 20 mEq Oral 2 times a day acetaminophen (TYLENOL) tablet 650 mg 650 mg Oral Every 4 hours prn prochlorperazine (COMPAZINE) 10 mg/2 mL injection solution 5 mg 5 mg IV Every 6 hours prn sodium chloride 0.9% flush (adult) 10 mL 10 mL IV 2 times a day and prn senna-docusate sodium (SENOKOT-S;PERICOLACE) tablet 1 tablet 1 tablet Oral 2 times a day prn bisacodyl (DULCOLAX) suppository 10 mg 10 mg Rectal 1 time a day prn enoxaparin (LOVENOX) subcutaneous injection solution 40 mg 40 mg Subcutaneous at bedtime sodium chloride 0.9% IV solution IV Continuous HYDROmorphone (DILAUDID) injection solution (conc: 0.5 mg/0.5mL) 0.5 mg 0.5 mg IV Every 1 hour prn ondansetron (ZOFRAN) injection solution 4 mg 4 mg IV Every 4 hours prn Allergies Allergen Reactions Penicillin Hives (High) Has tolerated 1st, 2nd, and 3rd generation cephalosporins Tetracyclines Hives (High) Arimidex [Anastrozole] Rash Aspirin [...] right Past Surgical History: Procedure Laterality Date LAP GASTRIC RESECTION ROBOTIC N/A 04/07/2021 Procedure: [facility] LAPAROSCOPIC GASTROJEJUNOSTOMY BYPASS;; Surgeon: Sarah Joshua MD SURGERY lipoma removal left upper back TONSILLECTOMY age 7 TUBAL LIGATION UPPER ENDOSCOPY N/A 04/01/2021 Procedure: UPPER ENDOSCOPY;; Surgeon: Jose Olson MD Family History Problem Relation Age of Onset Hypertension Father Heart Attack Father 70 possibly had previous DE Hypertension Mother Diabetes Mother Hx Type ll Obesity Brother had gastric bypass which resolved his HTN, diabetes. 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 Use Smoking status: Never Smoker Smokeless [...] Social Gatherings with Friends and Family: Attends Alevism Services: Active Member of Clubs or Organizations: [...] of Systems Comprehensive review of systems negative save for as elucidated above in history Physical / Results Current Vital Signs Temp: 97.7 F (36.5 C) BP: 98/55 Weight: 66.9 kg (147 lb 7.8 oz) SpO2: 97 % Resp: 16 Pulse: 70 Current BMI (>50 = increased risk): 23.02 O2 Device: Room Air Pain Ratin Physical Exam Gen: AVSS and afebrile; Resting comfortably in bed in NAD Mental Status: A&Ox3; Appropriate in conversation Psych: Normal mood and affect HEENT: No scleral icterus; no rhinorrhea; Oropharynx clear without lesions; Mallampati 2; Trachea midline without inspiratory stridor Cardiac: Regular rate, pedal edema not present Pulmonary: No respiratory distress or audible wheeze; symmetric chest wall expansion without accessory muscle use Abdomen: Soft, mildly distended, nontense, without palpable fluid wave and mild epigastric tenderness to palpation without rebound or guarding and no palpable mass : No costovertebral angle or suprapubic tenderness to palpation Extremities: No Clubbing or cyanosis of the upper extremities Integumentary: No Jaundice, no rash Neuro: Non-focal neuro exam moving all extremities equally without evidence of contractures Laboratory and Radiology results reviewed personally documented in this encounter ED Notes Jay Galvan MD - 05/26/2021 10:47 AM CDT Emergency Department Visit PT ID: Sabrina Retana is a 75yr old female DIAGNOSIS/ASSESSMENT: 1. Nausea Acute 2. Non-intractable vomiting with nausea, unspecified vomiting type Patient Disposition: Data Unavailable Data Unavailable SatMay 26, 2021 10:49 AM CDT Follow Up Information: ED COURSE ED Medication Administration from 05/26/2021 1026 to 05/26/2021 1108 None Vitals: 05/26/21 1026 05/26/21 1027 05/26/21 1029 05/26/21 1030 BP: 161/83 161/83 143/79 Pulse: 82 81 83 82 Resp: 15 Temp: 98.3 F (36.8 C) SpO2: 96% 98% 97% : MEDICAL DECISION MAKING: MDM Given patient's history concern for obstruction, other concerns would include metastasis and mass inthe abdomen, adhesion from prior intervention. Plan will be to replenish volume with IV fluids, RFP magnesium for electrolyte balance, CT abdomen pelvis, CBC, antiemetic medications. Consider decompression with NG tube if symptoms worsen. Can use port for access. CT ruled out obstruction contrast able to go through bowel. CHIEF COMPLAINT & HPI: Vomiting (Patient is 1 month post gastric bypass and c/o vomitting and bloating since last night. She is a stage IV breast cacer patient ) This is a 75-year-old female presenting for nausea and vomiting. Pertinent past medical history includes congestive heart failure, COPD, essential hypertension. Breast cancer with metastasis to bone and liver Patient states that she woke up yesterday morning feeling nauseous. She continued to eat and drink throughout the day as possible ultimately in the evening she started to vomit. Patient states that she vomited up her breakfast all other meals and pills to the point of vomiting up bile. Pertinent history for this patient includes that she is currently on biologic chemotherapeutic agents secondary to a 3-year history of breast cancer. She has metastasis to the liver and bone. Patient has chronic right pleural effusions that require thoracentesis for alleviation. Patient also had a gastrojejunostomy secondary to duodenal mass that was deemed noncancerous on biopsy on 05/10/21. She did not have any complications postop at that time. Last imaging of abdomen was noted to be in March. Patient also notes that yesterday she did not have a single stool and this morning had a small low-volume brown watery stool. Overall she describes her abdomen as feeling full. REVIEW OF SYSTEMS: Review of Systems Constitutional: Negative for activity change, appetite change, fatigue and fever. HENT: Negative for mouth sores and voice change. Eyes: Negative for redness. Respiratory: Positive for shortness of breath (from pleural effusion). Negative for cough and chest tightness. Cardiovascular: Negative for chest pain and leg swelling. Gastrointestinal: Positive for abdominal pain, nausea and vomiting. Negative for abdominal distention, anal bleeding, constipation and diarrhea. Musculoskeletal: Negative for arthralgias, back pain, joint swelling and myalgias. Skin: Negative for rash and wound. Neurological: Negative for dizziness and headaches. Psychiatric/Behavioral: Negative for agitation and behavioral problems. All other systems reviewed and are negative. PHYSICAL EXAM VITALS: ED Triage Vitals Vital Signs Group Temp 05/26/21 1029 98.3 F (36.8 C) Temp Source -- Pulse 05/26/21 1026 82 Resp 05/26/21 1029 15 BP 05/26/21 1026 161/83 BP Extremity -- Patient Position -- Oxygen Therapy Group SpO2 05/26/21 1027 96 % O2 Device -- O2 Flow Rate (L/min) -- RT and [facility] ED ONLY -Oxygen Related Charges -- Skin in contact with respiratory device assessed -- End Tidal CO2 -- Tissue Oxygen Saturation (StO2) % -- Physical Exam Vitals and nursing note reviewed. Constitutional: General: She is not in acute distress. Appearance: She is well-developed. She is not diaphoretic. HENT: Head: Normocephalic and atraumatic. Neck: Thyroid: No thyromegaly. Trachea: No tracheal deviation. Cardiovascular: Rate and Rhythm: Normal rate and regular rhythm. Heart sounds: Normal heart sounds. No murmur heard. Pulmonary: Effort: Pulmonary effort is normal. No respiratory distress. Breath sounds: Normal breath sounds. No wheezing or rales. Abdominal: General: Bowel sounds are normal. There is no distension (in lower quadrants). Palpations: Abdomen is soft. There is no mass. Tenderness: There is abdominal tenderness. There is no guarding or rebound. Musculoskeletal: General: Swelling (RUQ lymphedema) present. No tenderness. Cervical back: Normal range of motion and neck supple. No rigidity or tenderness. Skin: General: Skin is warm and dry. Findings: No erythema or rash. Neurological: Mental Status: She is alert and oriented to person, place, and time. Psychiatric: Mood and Affect: Mood normal. Behavior: Behavior normal. MEDICATIONS & ALLERGIES: Current Outpatient Medications Medication Sig Note doxazosin (CARDURA) 2 mg tablet furosemide (LASIX) 40 mg tablet TAKE 1 TABLET (40MG) BY MOUTH DAILY ondansetron (ZOFRAN ODT) 4 mg dispersible tablet DISSOLVE 1 TABLET (4MG) BY MOUTH EVERY SIX HOURS NEEDED FOR NAUSEA/VOMITING Methylsulfonylmethane (MSM) 1000 MG TABS Take 1,000 mg by mouth 1 time per day calcium carbonate (TUMS) 500 MG chewable tablet Take 500 mg by mouth 4 times a day as needed famotidine (PEPCID) 20 mg tablet Take 1 tablet (20 mg) by mouth 1 time per day Biotin 47128 MCG TABS Take 10,000 mcg by mouth 1 time per day letrozole (FEMARA) 2.5 mg tablet Take 1 tablet (2.5 mg) by mouth 1 time per day potassium chloride (KLOR-CON M20) 20 MEQ CR tablet Take 1 tablet (20 mEq) by mouth 2 times a day04/01/2021: Patient takes tablet three times daily. vitamin D3, cholecalciferol, 1000 unit tablet Take 1 tablet (1,000 Units) by mouth 1 time per day simethicone (MYLICON, GAS-X) 80 MG CHEW Take 2 tablets (160 mg) by mouth Every 4 hours as neededfor flatulence magnesium oxide 250 MG TABS Take 250 mg by mouth 1 time per day calcium carbonate-vitamin D (OSCAL 500 + VIT D) 500 mg-200 unit tablet Take 1 tablet by mouth 3 times a day with meals lactase (LACTAID) 3000 units TABS Take 3,000 Units by mouth as needed for other (Specify) Cyanocobalamin (VITAMIN B-12) 5000 MCG LOZG Take 5,000 mcg by mouth 1 time per day Multiple Vitamin (MULTI-VITAMIN) tablet Take 1 tablet by mouth 1 time per day. She is allergic to Penicillin, Tetracyclines, Arimidex [anastrozole], Aspirin, Ciprofloxacin, Influenza vaccines, Lactose [milk/dairy products], Macrodantin [nitrofurantoin], Singulair [montelukast sodium], and Sulfa drugs PROCEDURES: Procedures PAST MEDICAL & SURGICAL HISTORY Past Medical History: Diagnosis Date Breast cancer (HCC) CHF (congestive heart failure) (HCC) COPD (chronic obstructive pulmonary disease) (HCC) Degenerative joint disease of right hip Hyperlipidemia Hypertension Pleural effusion on right Past Surgical History: Procedure Laterality Date LAP GASTRIC RESECTION ROBOTIC N/A 04/07/2021 Procedure: JARON TERRELLINCFelipe LAPAROSCOPIC GASTROJEJUNOSTOMY BYPASS;; Surgeon: Sarah Joshua MD SURGERY lipoma removal left upper back TONSILLECTOMY age 7 TUBAL LIGATION UPPER ENDOSCOPY N/A 04/01/2021 Procedure: UPPER ENDOSCOPY;; Surgeon: Jose Olson MD SOCIAL & FAMILY HISTORY: @HXFAMILY@ Social History Tobacco Use Smoking Status Never Smoker Smokeless Tobacco Never Used Associated attestation - John Paul Segovia MD - 05/27/2021 8:22 AM CDT Emergency Department Visit PT ID: Sabrina Retana is a 75yr old female Resident supervisory note: The patient was seen and evaluated by myself in person with the resident. I agree with the resident's history and physical exam findings, unless otherwise noted. ED COURSE Records, nursing notes and vitals reviewed. Presentation and exam with past medical history and recent course reviewed. Abdomen without acute guarding or peritoneal signs. Symptomatology concerning for potential obstructive process. Further evaluation with labs and CT imaging including oral contrast protocol pursued. Laboratory studies as reviewed without marked acute derangement, mild hypokalemia. CT imaging does not show acute obstructive process. No acute inflammatory process. Patient serially updated and reassessed. Repeat doses of antiemetics given. Has some ongoing nausea. Tolerating some minimal oral intake but still uncomfortable and symptomatic. We will plan for in-hospital observation for ongoing close evaluation and monitoring and management. Discussed with the internal medicine hospitalist team in regards to evaluation here and considerations for admission. I did contact the patient's recent surgical oncologist to update her on the patient's presentation to the department here. DISPOSITION ICD-10-CM 1. Nausea Acute R11.0 2. Non-intractable vomiting with nausea, unspecified vomiting type R11.2 Data Unavailable Current Discharge Medication List Results: Labs Reviewed COMPREHENSIVE METABOLIC PANEL - Abnormal; Notable for the following components: Result Value Potassium 3.2 (*) Protein Total 5.8 (*) Albumin 3.3 (*) All other components within normal limits LAB ONLY-COMPLETE BLOOD COUNT WITH DIFFERENTIAL - Abnormal; Notable for the following components: Hemoglobin 11.2 (*) All other components within normal limits PROTIME/INR - Abnormal; Notable for the following components: Protime 14.7 (*) INR 1.2 (*) All other components within normal limits COMPREHENSIVE METABOLIC PANEL - Abnormal; Notable for the following components: Glucose 107 (*) CO2 19 (*) Calcium 8.1 (*) Protein Total 5.7 (*) Albumin 3.2 (*) All other components within normal limits LAB ONLY-COMPLETE BLOOD COUNT WITH DIFFERENTIAL - Abnormal; Notable for the following components: WBC 3.8 (*) Hemoglobin 11.4 (*) Lymphocytes Absolute 0.5 (*) All other components within normal limits LACTIC ACID REFLEX TO REPEAT - Normal LIPASE - Normal MAGNESIUM - Normal C-REACTIVE PROTEIN (INFLAMMATION) - Normal COMPLETE BLOOD COUNT WITH DIFFERENTIAL TYPE AND SCREEN COMPLETE BLOOD COUNT WITH DIFFERENTIAL Results for orders placed or performed during the hospital encounter of 05/26/21 XRAY CHEST PORTABLE - Narrative Patient Name: SABRINA RETANA Date of : 1945 Procedure: XRAY CHEST PORTABLE Date of Service: 05/26/2021 EXAM: XRAY CHEST PORTABLE INDICATION: shortness of breath COMPARISON(S): 04/01/2021. FINDINGS/IMPRESSION: Interval removal of the previously seen enteric tube. Left chest Port-A-Cath is stable and appropriately positioned. There is no acute focal consolidation. There is blunting of the bilateral costophrenic angles, right greater than left, suspicious for small pleural effusions. No pneumothorax. The cardiac silhouette is normal. No acute osseous or soft tissue abnormality. Finalized by: Micheal De La Torre MD on 05/26/2021 11:35 AM CDT Patient/Procedure Information: [facility] MRN/GEO: [id number] Order Number: [id number] Accession Number: [id number] Ordering Provider: JOHN PAUL SEGOVIA Authorizing Provider: JOHN PAUL SEGOVIA CT ABDOMEN PELVIS WITH CONTRAST Narrative Patient Name: SABRINA RETANA Date of : 1945 Procedure: CT ABDOMEN PELVIS WITH CONTRAST Date of Service: 05/26/2021 EXAM: CT ABDOMEN PELVIS WITH CONTRAST INDICATION: Nausea/vomiting, Bowel obstruction suspected, abdominal pain, n/v and decreased stools. hx of duodenal obstruction, recent gastrojujenostomy. metastatic breast CA. ? obstruction TECHNIQUE: CT imaging was performed through the abdomen and pelvis following IV contrast. COMPARISON(S): 04/16/2021 FINDINGS: Lower Chest: Small right pleural effusion has decreased compared to the prior exam with persistent adjacent rounded atelectasis in the right lower lobe. Left lower lung is grossly clear. Liver: Cirrhotic appearing liver without focal lesions. Similar appearance of mildly prominent bile ducts in segment 4. Gallbladder: Multiple stones again seen in the gallbladder. Bile ducts: Common bile duct is not significantly dilated. Pancreas: Normal Spleen: Borderline enlarged up to 12.5 cm craniocaudal. Adrenal glands: Normal Kidneys: 1.2 cm cyst in the mid right kidney, previously characterized as hemorrhagic/proteinaceous.1.8 cm cyst in the mid left kidney. No hydronephrosis. No nephrolithiasis. Ureters: Normal Bladder: Bladder is moderately distended. No focal lesions. Pelvic viscera: Fibroid uterus is similar compared to the prior exam. No suspicious adnexal mass. Stomach: Not distended. Moderate sized hiatal hernia. Gastrojejunostomy. Small bowel: Normal caliber Colon: Mild amount of air and stool in the colon. Appendix: Not identified. Vascular: Main portal vein is dilated up to 2.0 cm. No findings suspicious for thrombosis. Probable perisplenic varices. Lymph nodes: No lymphadenopathy. Peritoneum: No free fluid or pneumoperitoneum. Abdominal wall: Normal Bones: No acute fracture. Extensive metastatic disease throughout the bones has not significantly changed compared to the prior exam. IMPRESSION: 1. No acute findings in the abdomen/pelvis. Contrast passed to the distal small bowel and colon without marked dilation of the small bowel. 2. Cirrhotic appearing liver without suspicious focal lesion. Borderline splenomegaly. 3. Small right pleural effusion has decreased compared to the prior exam. 4. Bladder is moderately distended without focal mass. 5. Extensive metastatic disease in the bones again seen. Finalized by: Rashaun Jack MD on 05/26/2021 2:34 PM CDT Patient/Procedure Information: [facility] MRN/GEO: [id number] Order Number: [id number] Accession Number: [id number] Ordering Provider: JOHN PAUL SEGOVIA Authorizing Provider: JOHN PAUL SEGOVIA ED Medication Administration from 05/26/2021 1026 to 05/26/2021 1806 Date/Time Order Dose Route Action Action by 05/26/2021 1244 iohexol (OMNIPAQUE) 9 MG/ML oral solution 100 mL 100 mL Oral Given Payal Garrido RN 05/26/2021 1206 iohexol (OMNIPAQUE) 9 MG/ML oral solution 100 mL 100 mL Oral Given Payal Garrido RN 05/26/2021 1146 iohexol (OMNIPAQUE) 9 MG/ML oral solution 100 mL 100 mL Oral Given Payal Garrido RN 05/26/2021 1316 iohexol (OMNIPAQUE) 9 MG/ML oral solution 150 mL 150 mL Oral Given Payal Garrido RN 05/26/2021 1111 ondansetron (ZOFRAN) injection solution 4 mg 4 mg IV Given Payal Garrido RN 05/26/2021 1315 ondansetron (ZOFRAN) injection solution 4 mg 4 mg IV Given Payal Garrido RN 05/26/2021 1522 potassium chloride 20 mEq in dextrose 5% 250 mL 20 mEq IV Stopped Infusion Payal Garrido RN 05/26/2021 1237 potassium chloride 20 mEq in dextrose 5% 250 mL 20 mEq IV Given Payal Garrido RN 05/26/2021 1115 sodium chloride 0.9% IV solution IV New Bag Payal Garrido RN Vitals: 05/26/21 1954 05/26/21 2308 05/27/21 0611 05/27/21 0723 BP: 109/60 128/68 102/61 Pulse: 75 87 69 Resp: 14 16 16 Temp: 98.4 F (36.9 C) 98.3 F (36.8 C) 97.5 F (36.4 C) SpO2: 96% 97% 97% Weight: 66.9 kg (147 lb 7.8 oz) Height: MD Radhika Pennington Teagan, YAMILEX - 05/26/2021 10:31 AM CDT Plan of care includes addressing GI/ with attention to Chief Complaint Patient presents with Vomiting Patient is 1 month post gastric bypass and c/o vomitting and bloating since last night. She is a stage IV breast cacer patient . documented in this encounter Miscellaneous Notes Occupational Therapy - Tahira Norris OTR/L - 05/30/2021 2:00 PM CDT OT continues to follow patient. OT attempted to visit patient this afternoon, however, she is discharging this date. Pt denied further questions or concerns for OT before she discharges. JOY Asher Alpha Pager: [phone] are Planning - Liz Perry RN - 05/30/2021 1:57 PM CDT Problem: NAUSEA Goal: NAUSEA AND VOMITING SEVERITY Description: DEFINITION: Severity of signs and symptoms of nausea, retching, and vomiting. 1 = Severe, 2 = Substantial, 3 = Moderate, 4 = Mild, 5 = None. Outcome: NOC Rating 4 Flowsheets (Taken 05/30/2021 1352) Initial Score: 4 Target Score: 5 Plan of care reviewed with: Patient Patient specific goal for the day: alert nurse when feeling nauseas Patient specific goal for the stay: No more nausea Achieve goal for stay: By discharge Patient Progress: Patient has had no complaints of nausea. No PRN medication is given. Abdoment is soft and bowel sounds active. Full liquid diet changed on low fiber diet. Pt order full lunch according to diet. Will continue to monitor. Nutrition Team - Mariana Murrieta RD - 05/30/2021 11:43 AM CDT Nutrition Therapy Education Referral: Education for Low residual diet Learners: Patient Readiness: Acceptance Method: Explanation/Handout: Reviewed [place] Low Fiber Nutrition Therapy handout as well as Restricted Fiber Diet with patient. Pt expresses frustration that she normally eats a high fiber diet at home and feels that many of the foods discussed are not as healthy as what she normally eats. Response: Verbalizes Understanding Mariana Murrieta RDN, LRD Alpha Pager #[phone] ase Mgmt - Sophia Shin RN - 05/30/2021 11:30 AM CDT CASE MANAGEMENT / SOCIAL SERVICE FINAL TRANSITION PLAN TRANSITION DATE: 05/30/2021 TRANSITION TIME: per floor INTENDED PAYER SOURCE FOR AGENCY: Not Applicable TRANSITION DESTINATION: Home DOES ACCEPTING FACILITY REQUIRE COVID TESTING BEFORE DISCHARGE: N/A TRANSITION TRANSPORTATION: Family Car TRANSPORTATION PAYMENT: Not applicable TRANSITION CHOICES OFFERED: Home: Family/Friend Support DOES THE PATIENT HAVE A PRIMARY CARE PHYSICIAN? Yes Helen Cardenas MD PATIENT / SUBSTITUTE DECISION MAKER GOAL UPON TRANSITION: First Choice: Home: Family/Friend Support PATIENT CHOICE EDUCATION: Not applicable MEDICARE 3 IP MIDNIGHT CRITERIA MET: N/A RESOURCE(S) PROVIDED: nothing needed at this time DOES PATIENT HAVE CLOTHING TO WEAR AT DISCHARGE? Yes ANTICIPATED MODE OF TRANSPORT TO AND FROM FOLLOW UP APPOINTMENTS: Family Car VERIFIED CORRECT PHARMACY IS ENTERED FOR DISCHARGE: Yes - Pharmacy: . [facility] [address] [facility] METHOD OF PRESCRIBING MEDICATIONS: Medications to be E-prescribed to above pharmacy TRANSITION ROUNDING COMPLETED WITH THE FOLLOWING: Patient / family Assembly Line Driver Attending MD Bedside RN Discussed in person Discussed via telephone COMMENTS / PATIENT AND FAMILY RESPONSE TO PLAN: Met with pt in room today. CM role explained and discharge planning discussed. Pt lives at home alone. Pt is independent with ADLs. She has a lady that comes in to help with light house cleaning and takes her grocery shopping. Pt no longer drives, has a PCP, and manages own medications/finances. No discharge needs identified at this time. CM will continue to follow for transition planning. SPECIAL TRANSITION DAY INSTRUCTIONS TO NURSE / MD: Bedside nurse to complete routine discharge along with discharge paperwork and education. Family to provide transport to home. CURRENT READMISSION RISK SCORE / HANDOFF: Predictive Risk Score Risk of Unplanned Readmission: 34.2 Handoff given: N/A SIGNED: Sophia Shin RN Case Managment [phone] Route # [id number] hona Falcon RN - 05/30/2021 12:07 AM CDT Problem: PHYSICAL COMFORT Goal: CLIENT SATISFACTION: PAIN MANAGEMENT Description: DEFINITION: Extent of positive perception of nursing care to relieve pain. 1=Not at all satisfied, 2=Somewhat satisfied, 3=Moderately satisfied, 4=Very satisfied, 5=Completely satisfied. Flowsheets (Taken 05/30/2021 0006) Initial Score: 4 Target Score: 5 Plan of care reviewed with: Patient Patient specific goal for the day: Patient will have good pain control to allow for rest/sleep. Patient specific goal for the stay: Patient will return to baseline Patient Progress: Patient reported pain at -12/31, reports Dilaudid given from shift prior helped her pain especially after having her scans during the day. Patient reports feeling "pretty good". will continue to monitor Piper Quiñones - Arlene Serna RN - 05/29/2021 11:19 AM CDT Problem: NAUSEA Goal: NAUSEA AND VOMITING SEVERITY Description: DEFINITION: Severity of signs and symptoms of nausea, retching, and vomiting. 1 = Severe, 2 = Substantial, 3 = Moderate, 4 = Mild, 5 = None. Outcome: NOC Rating 4 Flowsheets (Taken 05/29/2021 1118) Plan of care reviewed with: Patient Patient specific goal for the day: alert nurse when feeling nauseas Patient specific goal for the stay: No more nausea Achieve goal for stay: By discharge Patient Progress: Patient has had no complaints of nausea. Abdoment is soft and bowel sounds active.Tolerated full liquid diet. Will continue to monitor. Alan Ocampo RN - 05/28/2021 10:14 AM CDT Problem: NAUSEA Goal: NAUSEA AND VOMITING SEVERITY Description: DEFINITION: Severity of signs and symptoms of nausea, retching, and vomiting. 1 = Severe, 2 = Substantial, 3 = Moderate, 4 = Mild, 5 = None. Outcome: NOC Rating 4 Flowsheets (Taken 05/28/2021 1013) Initial Score: 4 Target Score: 5 Plan of care reviewed with: Patient Patient specific goal for the day: alert nurse when feeling nauseas Patient specific goal for the stay: No more nausea Achieve goal for stay: By discharge Patient Progress: Patient had no nausea this AM, abdomen is soft, active bowel sounds, passing gas, and no tenderness. Tolerating Full liquid diet Occupational Therapy - Tahira Norris OTR/Rod - 05/28/2021 9:37 AM CDT Occupational Therapy Acute Care Progress Note Impression/Recommendations Anticipate patient will be able to return home with family/friend assist for ADLs/IADLs as needed and no further OT needs upon medical stability. Will update discharge recommendations as appropriate. Patient is presenting with impairments including decreased strength/activity tolerance, however, appears to be functioning close to her baseline level of independence. Patient is demonstrating ability tocomplete observed ADLs and transfers with SBA and FWW. Patient will continue to benefit from skilledOT 1-2 more times prior to d/c in order to address the above deficits to increase functional independence in ADLs, IADLs, and transfers/mobility. Objective Diagnosis: ICD-10-CM 1. Nausea Acute R11.0 2. Non-intractable vomiting with nausea, unspecified vomiting type R11.2 Precautions: Fall Risk, high risk haz meds, Limb alert R UE Infection Control: Medication Risk Hazard: high Cognition: Pt is alert. Oriented to: Person, place, time, situation. Follows simple commands independently and demonstrates good insight into safety and her current physical limitations. Pt reported that she is unsure if she will have surgery or not during this current hospitalization. Pt stated "I would like to see more OT if I do have surgery now, because I might need a swing bed facility." Activelistening was provided. U/E: Recommended pt participate in UE HEP to increase strength/endurance required to maximize independence with ADLs/IADLs. Pt declined, reporting "That's boring. I get exercise by doing things at home." ADLs: Feeding: Not assessed Grooming: Pt stood at the sink for approximately 5 minutes with SBA. Brushed her teeth and washed her face with set-up assist. Dressing: Doffed/donned slip-on slippers. Toileting: Not assessed Provided education/training on energy conservation/compensatory strategies to enhance endurance for functional performance in ADLs/IADLs and functional mobility. These strategies included pacing activities throughout the patient's daily routines, sitting when able for ADLs to enhance patient safety, and taking rest breaks during difficult tasks. Patient verbalized understanding. Transfers: Bed: Supine<>sit SBA. Sit<>stand SBA and FWW Chair: Sit<>stand SBA and FWW. Toilet: Not assessed Mobility/Ambulation: SBA with FWW from bed>sink>chair>bed. No LOB observed. At end of session: patient resting in bed, alarm activated, bed in lowest position, call light and tray table within reach, education provided on use call light and waiting for assistance prior to transferring and Gripper socks and gait belt donned for all OOB activity. Pain: Pain at rest: 1-2/10 Pain during activity: 1-2/10 Location: "Just the usual pain/discomfort." Denied dizziness/nausea or discomfort near her abdomen. Vitals: Pt on RA without signs of shortness of breath during OT. Interdisciplinary Communication: Nurse Phillips Education Education/Training provided: Role of OT, plan of care, ADLs, transfers/mobility, safety, AE needs,d/c recommendations Learners: Patient Readiness: accepting Method of Training: verbal Response: Verbalizes understanding and Demonstrates understanding; Will benefit from continued reinforcement: yes Adaptive Equipment Recommendations Adaptive Equipment Recommended: OT will continue to assess AE needs and will update as necessary Adaptive Equipment Available: toilet riser with arms, shower chair, hand held shower, grab bars tub/shower, grab bars toilet, handicapped-height toilet, fixed wing pilot, sock aid, long-handled shoe horn, lift chair, front-wheeled walker, 4 wheeled walker and cane Plan to obtain adaptive equipment: Patient indicates all needed adaptive equipment obtained prior to hospitalization. Goals Patient/Family Stated Goal for Session: agreeable to therapy Short Term/Vice President Mission Integration Goals: *Patient will complete UB and LB dressing with modified independent as a measure of increased independence with self cares. (ongoing) *Patient will complete functional transfers with modified independent with AE PRN as a measure of increased independence with ADL's and mobility (ongoing) *Patient will tolerate standing at sink for G/H for >5 minutes with AD as needed as a measure of increased independence (ongoing) *Patient will verbalize and demonstrate understanding of 3 energy conservation techniques to increase safety upon discharge (ongoing) *Patient will demonstrate understanding of B UE HEP in order to increase strength, coordination, andROM to facilitate maximized independence in ADLs (d/c goal~ Pt declined UE HEP) Patient continues to demonstrate progress towards OT goals: Yes Charges Treatment/Minutes: Today's Evaluation/Treatment Self care/home management: 32 minutes Total Treatment Time: 32 minutes Treatment Session 10/28 Weekly Assessment/Plan (): Cont OT POC Therapist Alpha Pager Number [phone] are Planning - Rhona Montague RN - 05/27/2021 10:24 PM CDT Problem: PHYSICAL COMFORT Goal: CLIENT SATISFACTION: PAIN MANAGEMENT Description: DEFINITION: Extent of positive perception of nursing care to relieve pain. 1=Not at all satisfied, 2=Somewhat satisfied, 3=Moderately satisfied, 4=Very satisfied, 5=Completely satisfied. Flowsheets (Taken 05/27/20212220) Initial Score: 4 Target Score: 5 Plan of care reviewed with: Patient Patient specific goal for the day: Patient will have good pain control to allow for rest/sleep. Patient specific goal for the stay: Patient will return to baseline Achieve goal for stay: By discharge Patient Progress: Patient c/o chronic pain leg/sciatica, patient given Dialudid (see MAR) prior to shift. Patient rated pain at 4/10 at start of shift and said she feels comfortable. Declined any need for pain interventions at this time. Will continue to monitor I Procedure - Jose Olson MD - 05/27/2021 5:[address] [facility] Gastroenterology Lab Patient Name: Sabrina Retana Procedure Date: 05/27/2021 5:27 PM Date of : 1945 Admit Type: Inpatient Age: 75 Gender: Female Surgeon: JOSE OLSON MD Procedure: Upper GI endoscopy Indications: Abnormal CT of the GI tract, Persistent vomiting, s/p gastrojejunostomy for bypass of pyloris/duodenal stricture. Providers: JOSE OLSON MD, GURVINDER PAREDES RN Medicines: Monitored Anesthesia Care Complications: No immediate complications. Estimated Blood Loss: [...] anticoagulant or antiplatelet agents. ASA Grade Assessment: II - A patient with mild systemic disease. After reviewing the risks and benefits, the patient was deemed in satisfactory condition to undergo the procedure. After obtaining informed consent, the endoscope was passed under direct vision. Throughout the procedure, the patient's blood pressure, pulse, and oxygen saturations were monitored continuously. The Endoscope [id number] was introduced through the mouth, and advanced to the efferent jejunal loop. The upper GI endoscopy was accomplished without difficulty. The patient tolerated the procedure well. Findings: The examined esophagus was normal. A large amount of food (residue) was found in the gastric fundus and in the gastric body. The procedure was limited to reduce risk of aspiration given significant retained contents that could not be cleared with scope as the particulate matter was very large. Diffuse moderate inflammation characterized by congestion (edema), erosions, erythema and friability was found in the entire examined stomach. Evidence of a gastrojejunostomy was found in the gastric body. This was characterized by erythema, friable mucosa, an intact appearance, moderate stenosis, an intact staple line and the presence of no stomal ulceration. A TTS dilator was passed through the scope. Dilation with a 10-11-12 mm anastomotic balloon dilator was performed. An acquired severe stenosis was found in the duodenal bulb and was non-traversed as the stenosis has already been evaluated and is the reason for the palliative bypass, but it appeared severely stenotic and unlikely to be contributing to gastric emptying in any significant way and attempting to pass the scope thorugh would risk aspiration given the significant retained gastric contents. Impression: - Normal esophagus. - A large amount of food (residue) in the stomach. Scope had to be limited to minimal maneuvering to reduce risk of aspiration given large particulate matter. Dilation of anastomosis was performed, but did not attempt to traverse the duodenal stricture today. - Gastritis. - A gastrojejunostomy was found, characterized by friable mucosa, an intact appearance, erythema, moderate stenosis, an intact staple line with visible stable and no stomal ulceration. The anastomosis was dilated, but even at 12mm, there appeared to be some breakdown of the anastomotic line and given friable appearance in inmmunocompromised patient, did not attempt to dilate larger than 12mm and will discuss further management options with the surgeon. - Acquired duodenal stenosis was noted, knwon from previous evaluations. Not traversed given significant retained contents and need to minimize gastric manipulation with unprotected airway. - No specimens collected. Recommendation: - Observe patient's clinical course following today's procedure with therapeutic intervention. - Full liquid diet and if tolerated, can advance to low residual diet after a few days. - If advancing diet not tolerated, can consider repeat EGD for placement of Axios stent vs larger, more agressive dilation after discussion with surgeon given the anastomosis appeared friable even with minimal dilation to 12mm today. - GI will follow peripherally in the event repeat EGD intervention is required prior to discharge. Jose Olson MD JOSE OLSON MD 05/27/2021 6:07:47 PM This report has been signed electronically.JOSE OLSON MD Number of Addenda: 0 Note Initiated On: 05/27/2021 5:27 PM Total Procedure Duration Time 0 hours 6 minutes 48 seconds Scope In: 5:37:40 PM Scope Out: 5:44:28 PM utrition Team - Christina Mary RD - 05/27/2021 3:08 PM CDT Nutrition Therapy Initial Assessment Referral: BPA with MST score of 3 Hospital Day: 0 days Active Problems: COPD Malignant neoplasm of overlapping sites of right breast in female, estrogen receptor positive Pleural effusion, malignant Duodenal obstruction Nausea and vomiting PMH: Stage IV breast cancer, CHF, COPD, HTN, HLD, s/p gastrojejunostomy bypass (03/2021) Recommendations/Plan: Advance diet as medically appropriate NUTRITION ASSESSMENT Pt admitted with abdominal discomfort, nausea and vomiting for 24-48 hrs prior to admit. Hx of robotic gastrojejunostomy on 03/2021. Pt was on TPN during previous admission. Reports improvement in appetite/po intake since previous discharge and has been gaining some of the weight lost back. Anthropometrics: Height: 170.2 cm (5' 7") Admission Weight: Weight: 66.7 kg (147 lb) as of 05/26/2021 per bed scale Most Recent Weight: Weight: 66.9 kg (147 lb 7.8 oz) (05/27/21 0611) per unknown source Lowest Weight Since Admission: 66.7 kg - admit weight Weight Change: +0.2 kg since admission BMI: Body mass index is 23.1 kg/m. IBW: 61 kg %IBW: 109% (based on admit weight) Usual Body Weight: 160 lbs per pt report Unintentional Weight Loss: Down 7% in the last 2 months Estimated Needs: 1600 kcal/day ([place] [address]. Jeor x 1.3 Using: Admission Weight) 85 gm protein (1.3 gm/kg Using:Admission Weight) Fluids per MD Intake Records: Intake Prior to Admit: Pt reports improvement in po intake/appetite since previous admission on 03/2021. Regular diet [employer]. Hx of TPN during previous admission. Noted allergy to lactose, pt will self monitor. Current Intake: Pt is NPO Current Diet: Nutrition (From admission, onward) Start Ordered 05/27/21 0900 Supplement [facility]; Boost Breeze BID BID Comments: Give supplement cold with medications twice a day. The supplement is an intervention for identified nutrition risk factors. * Do not give if patient is NPO (unless the orders specify NPO with supplement) or if medication should not be given with food. Question Answer Comment Location [facility] Dietary Supplement Boost Breeze 05/26/21 19405/27/21 0805 Diet - NPO Now Question: Standard Diets Answer: NPO 05/27/21 0804 05/26/21 1710 ADVANCE DIET TOLERATED ONCE 05/26/21 1715 Physical Assessment: Edema: (per traffic recorder at 0940 today) RLE Edema 2 GI Assessment: Abdominal exam: Flat, Non-tender and Soft with Active bowel sounds, per traffic recorder at 0940 today. Stool Frequency: Pt has not had a documented BM since admission Wounds/Pressure Points: (per traffic recorder at 0940 today) WDL Functional Status: PT Following OT Following Nutrition Focused Physical Exam: Completed by RD on 05/27/21 Below the Eye (fat): Slightly Bulged Fat Pads (Within Defined Limits) [place] (muscle): Slight depression (mild-moderate) (mild) Buccal (fat): Full, round/filled out cheeks (Within defined limits) Clavicle (muscle): Some protrusion of bone (mild-moderate) (mild) Shoulder (muscle)/Deltoid muscle: Acromion process slightly protrudes (mild- moderate) (mild) Triceps/Biceps (fat): Ample fat tissue obvious between folds of skin (Within defined limits) Hand/Interosseous (muscle): Flat to bulging muscle (Within defined limits) Thigh (muscle): Well-rounded, no bone prominence (Within defined limits) Calf (muscle): Well-developed bulb of muscle (Within defined limits) Nutritionally-Relevant Medications, Vitamins and Minerals: Lovenox, Letrozole, Reglan, Protonix, Potassium, IVF Nutritionally-Relevant Biochemical Data: (05/27/2021) Glucose 107 Albumin 3.2 Allergies/Food Intolerance: Sabrina is allergic to penicillin, tetracyclines, arimidex [anastrozole], aspirin, ciprofloxacin, influenza vaccines, lactose [milk/dairy products], macrodantin [nitrofurantoin], singulair [montelukast sodium], and sulfa drugs. Culturally Alevism Needs: no INTERVENTIONS Encouraged adequate calories and optimal protein in small, frequent meals and snacks when diet advances Conducted NFPE Obtained diet history MONITORING/EVALUATION Monitor diet advancement Monitor NPO duration Monitor I&O, weight trends, nutrition-related labs and medications, clinical status, and planof care r/t need for nutrition intervention and provide as warranted Nutrition Therapy will reassess every 1-[address], LRD [place] Pager [phone] hysical Therapy - Ariel Murdock PT - 05/27/2021 2:22 PM CDT PT orders received and chart reviewed. Patient states she remains independent with functional mobility and has no concerns regarding mobility. Inpatient PT is not indicated and will be discontinued. Ariel Murdock PT, DPT Board-Certified Clinical Specialist in Geriatric Physical Therapy Certified Exercise Expert for Aging Adults Pager: [phone] are Planning - Rhona Montague RN - 05/27/2021 7:01 AM CDT Problem: PHYSICAL COMFORT Goal: CLIENT SATISFACTION: PAIN MANAGEMENT Description: DEFINITION: Extent of positive perception of nursing care to relieve pain. 1=Not at all satisfied, 2=Somewhat satisfied, 3=Moderately satisfied, 4=Very satisfied, 5=Completely satisfied. Outcome: NOC Rating 3 Flowsheets (Taken 05/27/2021 5029) Initial Score: 3 Target Score: 4 Plan of care reviewed with: Patient Patient specific goal for the day: Patient will have tolearble pain to promote comfort Patient specific goal for the stay: Patient will return to baseline Achieve goal for stay: By discharge Patient Progress: Patient c/o chronic pain leg/sciatica, patient requested [place] for pain at bedtimesince she takes this at home. scallop binder provider paged and med given (see MAR). Per pt leg feels better and allowed her to ambulate in room comfortably. will continue monitoring pain control. Clinical Team - Maru Asher RN - 05/26/2021 7:38 PM CDT Skin assessment completed with YAMILEX Phillips Lap site scars to abdomen, healed nicely. No other areas of concern. documented in this encounter Plan of Treatment Date Type Specialty Care Team Description 06/14/2021 Office Visit General Surgery Sarah Joshua MD [address] [place] [address] [phone] 06/29/2021 Hospital Encounter Gastroenterology Evie Morgan D uodenal obstruction [address] [place] [phone] 06/29/2021 Surgery Gastroenterology Evie Morgan UPPER E NDOSCOPY [address] [place] [phone] Name Type Priority Associated Order Schedule Diagnoses ESOPHAGOGASTRODUODENOSCOPY Procedures Routine O nce for 1 Occurrences starting 2020 until documented as of this encounter Procedures Procedure Name Priority Date/Time Associated Comments Diagnosis PHOSPHORUS Routine 05/30/2021 Results for 10:55 AM CDT this procedure are in the results section. MAGNESIUM Routine 05/30/2021 Results for 10:55 AM CDT this procedure are in the results section. BASIC METABOLIC PANEL Routine 05/30/2021 Result s for 10:55 AM CDT this procedure are in the results section. XRAY UPPER GI Routine 05/29/2021 Results for 5:49 PM CDT this procedure are in the results section. PHOSPHORUS Routine 05/29/2021 Results for 12:45 PM CDT this procedure are in the results section. MAGNESIUM Routine 05/29/2021 Results for 12:45 PM CDT this procedure are in the results section. BASIC METABOLIC PANEL Routine 05/29/2021 Result s for 12:45 PM CDT this procedure are in the results section. UPPER ENDOSCOPY 05/27/2021 Intractable 5:30 PM CDT nausea and vomiting ESOPHAGOGASTRODUODENOSCOPY 05/27/2021 R esults for 5:27 PM CDT this procedure are in the results section. GLUCOSE BY METER, POCT Routine 05/27/2021 Resul ts for 11:41 AM CDT this procedure are in the results section. LAB ONLY-COMPLETE BLOOD COUNT Routine 05/27/2021 Results for WITH DIFFERENTIAL 6:44 AM CDT this proce dure are in the results section. LAB ONLY-COMPLETE BLOOD COUNT Routine 05/27/2021 Results for WITH DIFFERENTIAL 6:44 AM CDT this proce dure are in the results section. PROTIME/INR Routine 05/27/2021 Results for 6:43 AM CDT this procedure are in the results section. C-REACTIVE PROTEIN STAT 05/27/2021 Results f or (INFLAMMATION) 6:43 AM CDT this procedur e are in the results section. COMPREHENSIVE METABOLIC PANEL Routine 05/27/2021 Results for 6:43 AM CDT this procedure are in the results section. TYPE AND SCREEN STAT 05/26/2021 Results for 6:28 PM CDT this procedure are in the results section. CT ABDOMEN PELVIS WITH CONTRAST STAT 05/26/2021 Results for 2:14 PM CDT this procedure are in the results section. XRAY CHEST PORTABLE ELIAS 05/26/2021 Results for 11:24 AM CDT this procedure are in the results section. LACTIC ACID REFLEX TO REPEAT STAT 05/26/2021 Results for 11:10 AM CDT this procedure are in the results section. LAB ONLY-COMPLETE BLOOD COUNT STAT 05/26/2021 Results for WITH DIFFERENTIAL 11:10 AM CDT this proce dure are in the results section. MAGNESIUM STAT 05/26/2021 Results for 11:10 AM CDT this procedure are in the results section. LIPASE STAT 05/26/2021 Results for 11:10 AM CDT this procedure are in the results section. COMPREHENSIVE METABOLIC PANEL STAT 05/26/2021 Results for 11:10 AM CDT this procedure are in the results section. LAB ONLY-COMPLETE BLOOD COUNT STAT 05/26/2021 Results for WITH DIFFERENTIAL 11:10 AM CDT this proce dure are in the results section. documented in this encounter Results PHOSPHORUS (05/30/2021 10:55 AM CDT) Pathologist Sig nature Phosphorus 2.1 (L) 2.5 - 4.5 mg/dL [address] Specimen Blood - Blood specimen (specimen) Performing Organization Address [facility] Phon e Number [place] [id number] [facility] [address] [place] [id number] MAGNESIUM (05/30/2021 10:55 AM CDT) Pathologist Sig nature Magnesium 2.1 1.8 - 2.4 mg/dL [address] Specimen Blood - Blood specimen (specimen) Performing Organization Address [facility] Phon e Number [place] [id number] [facility] [address] [place] [id number] BASIC METABOLIC PANEL (05/30/2021 10:55 AM CDT) Pathologist Sig nature Glucose 87 70 - 100 mg/dL [place] [address] [facility] BUN 3 (L) 6 - 22 mg/dL [address] Creatinine 0.61 0.60 - 1.[address] mg/dL BUN/Creatinine Ratio 4.9 (L) 10.0 - 25.[address] Sodium 141 135 - 145 meq/L [address] Potassium 3.3 (L) 3.5 - 5.3 meq/L [address] Chloride 110 99 - 110 meq/L [place] [address] [facility] CO2 23 20 - 29 meq/L [address] Anion Gap with K 11 6 - 20 meq/L [address] Calcium 7.4 (L) 8.5 - 10.5 mg/dL [address] Age [address] eGFR Non- >90 >=[address] [place] mL/min/1.73m2 eGFR >90 >=60 [facility] mL/min/1.73m2 Specimen Blood - Blood specimen (specimen) Performing Organization Address City/State/ZIP Code Phon e Number [facility] [address] [place] [address] XRAY UPPER GI (05/29/2021 5:49 PM CDT) Specimen Narrative Performed At This result has an attachment that is no t available. [id number] Patient Name: SABRINA RETANA Date of : 1945 Procedure: XRAY UPPER GI Date of Service: 05/29/2021 EXAM: XRAY UPPER GI INDICATION:stricture of [place] duodenum, now stricture of gastrojejunostomy COMPARISON(S): None Available FINDINGS: Dog Bather abdomen and pelvis: No abnormal di lated bowel loops, intraperitoneal free air, or abnormal air-fluid levels.Moderate degenerative spondylosis multiple levels thoracolumbar spine. Mild parahilar, b ibasilar curvilinear patchy airspace [place], volume loss. Minimal bilateral pleural effusions. Moderate cardiomegaly more limited examination inferio r thorax. Upper GI: Under fluoroscopic control, water-solubl e iodinated contrast, and also thin barium contrast material was seen to flow readily through the esophagus into the stomach. Marked gastroesophageal reflux to th e level just superior to the thoracic inlet during Jacquelyn argenis maneuver. Moderate transient hiatus hernia during Valsalva maneu otoniel. No other persistent filling defects, dev iation, mass effect or dysmotility of esophagus. No other persistent filling defects, ulceration change of stomach. Left subclavian central line, with thoracic po rt, Distal tip, at the expected location , superior right atrial SVC junction limited examination. No persistent stricture of the gastrojej unal anastomosis region. No other abnormal persistent dilated small bowel loops or persistent gastric distention. IMPRESSION: Moderate size hiatus hernia. Marked elicited gastroesophageal reflux. No definite evidence of high-grade stric ture at the gastrojejunal anastomosis region. Mild parahilar, bibasilar segmental atel ectasis and/or scarring versus consolidation from pneumonia versus aspiration inferior thorax. Correlation with dedicated PA lateral chest if clinical suspicion for acute or subacute pulmonic pathology. Minimal bilateral pleural effusions. Finalized by: Stephen Bear MD on 05/29/2021 7:38 PM CDT Patient/Procedure Information: [facility] MRN/GEO: [id number] Order Number: [id number] Accession Number: [id number] Ordering Provider: PARVIZ CUELLAR Authorizing Provider: ANSELMO FRANCISCO Procedure Note Alexa Marco A - 05/29/2021 7:40 PM CDT Patient Name: SABRINA RETANA Date of : 1945 Procedure: XRAY UPPER GI Date of Service: 05/29/2021 EXAM: XRAY UPPER GI INDICATION:stricture of [place] duodenum, now stricture of gastrojejunostomy COMPARISON(S): None Available FINDINGS: Dog [place]ather abdomen and pelvis: No abnormal di lated bowel loops, intraperitoneal free air, or abnormal air-fluid levels.Moderate degenerative spondylosis multiple levels thoracolumbar spine. Mild parahilar, bibasilar curvilinear patchy airspace opacity, volume loss. Mi nimal bilateral pleural effusions. Moderate cardiomegaly more limited exami nation inferior thorax. Upper GI: Under fluoroscopic control, water-solubl e iodinated contrast, and also thin barium contrast material was seen to flow readily through the esophagus into the stomach. Marked gastroesophageal reflux to the level just superior to the thoracic inlet duri ng Valsalva maneuver. Moderate transient hiatus hernia during Valsalva maneuver. No other persistent filling defects, dev iation, mass effect or dysmotility of esophagus. No other persistent filling defects, ulceration change of stomach. Left subclavian central line, with thoracic port, Distal tip, at the expected location, superior right at rial SVC junction limited examination. No persistent stricture of the gastrojej unal anastomosis region. No other abnormal persistent dilated small bowel loops or persistent gastric distention. IMPRESSION: Moderate size hiatus hernia. Marked elicited gastroesophageal reflux. No definite evidence of high-grade stric ture at the gastrojejunal anastomosis region. Mild parahilar, bibasilar segmental atel ectasis and/or scarring versus consolidation from pneumonia versus aspiration inferior thorax. Correlation with dedicated PA lateral chest if clinical suspicion for acute or subacute pulmonic pathology. Minimal bilateral pleural effusions. Finalized by: Stephen Bear MD on 05/29 7:38 PM CDT Patient/Procedure Information: [facility] MRN/GEO: [id number] Order Number: [id number] Accession Number: [id number] Ordering Provider: PARVIZ CUELLAR Authorizing Provider: ANSELMO FRANCISCO Performing Organization Address [facility] Phon e Number [id number] PHOSPHORUS (05/29/2021 12:45 PM CDT) Pathologist Sig nature Phosphorus 1.2 (L) 2.5 - 4.5 mg/dL [address] Specimen Blood - Blood specimen (specimen) Performing Organization Address [facility] Phon e Number [place] [address] [facility] [address] [place] [id number] MAGNESIUM (05/29/2021 12:45 PM CDT) Pathologist Sig nature Magnesium 2.0 1.8 - 2.4 mg/dL [address] Specimen Blood - Blood specimen (specimen) Performing Organization Address [facility] Phon e Number [address] [place] [id number] BASIC METABOLIC PANEL (05/29/2021 12:45 PM CDT) Pathologist Sig nature Glucose 87 70 - 100 mg/dL [address] BUN 5 (L) 6 - 22 mg/dL [address] Creatinine 0.62 0.60 - 1.[address] mg/dL BUN/Creatinine Ratio 8.1 (L) 10.0 - 25.[address] Sodium 141 135 - 145 meq/L [address] Potassium 3.2 (L) 3.5 - 5.3 meq/L [place] [address] [facility] Chloride 111 (H) 99 - 110 meq/L [place] [address] [facility] CO2 21 20 - 29 meq/L [address] Anion Gap with K 12 6 - 20 meq/L [address] Calcium 7.5 (L) 8.5 - 10.5 mg/dL [address] Age 75 Years [place] [address] [facility] eGFR Non- >90 >=[address] [place] mL/min/1.73m2 eGFR >90 >=[address] mL/min/1.73m2 Specimen Blood - Blood specimen (specimen) Performing Organization Address [facility] Phon e Number [address] [facility] [place] [address] ESOPHAGOGASTRODUODENOSCOPY (05/27/2021 5:27 PM CDT) Pathologist Erik JACK [facility] Gastroenterology Lab Patient Name: Sabrina Retana Procedure Date: 05/27/2021 5:27 PM Acco unt Number: [id number] Date of : 1945 Admit Type : Inpatient Age: 75 G derrick: Female Surgeon: JOSE OLSON MD Procedure: Upper GI endoscopy Indications: A bnormal CT of the GI tract, Persistent vomiting, s/p gastrojejunostomy for bypass of pyloris/duodenal stricture. Providers: JOSE OLSON MD, GABRIELE PAREDES, RN Medicines: Monitored Anesthesia Care Complications: No immediate complications. Estimated Blood Loss: [...] anticoagulant or antiplatelet agents. ASA Grade Assessment: II - A patient with mild systemic disease. After reviewing the risks and benefits, the patient was deemed in satisfactory condition to undergo the procedure. After obtaining informed consent, the endoscope was passed under direct vision. Throughout the procedure, the pat ient's blood pressure, pulse, and oxygen saturations were monitored continuou sly. The Endoscope [id number] was introduced through the mouth, and advanced to the efferent jejunal loop. The upper GI endoscopy was accomp lished without difficulty. The patient tolerated the procedure well. Findings: The examined esophagus was normal. A large amount of food (residue) was found in the gastric fundus and in the gastric body. The procedure was limited to reduce risk of aspiration given significant ret ained contents that could not be cleared with scope as the particulate matter was very large. Diffuse moderate inflammation characterized by congestion (edema), erosions, erythema and friability was found in the entire examined stomach. Evidence of a gastrojejunostomy w as found in the gastric body. This was characterized by erythema, friable mucosa, an i ntact appearance, moderate stenosis, an intact staple line and the presence of no stomal ulceration. A TTS dilator was pas sed through the scope. Dilation with a 10-11-12 mm anastomotic balloon dilator was per formed. An acquired severe stenosis was found in the du odenal bulb and was non-traversed as the stenosis has already been evaluated and is the reason for the palliative bypass, but it appeared severely stenotic and unlikely to be contributing to gastric em ptying in any significant way and attempting to pas s the scope thorugh would risk aspiration given the significant retained gastric contents. Impression: - Normal esophagus. - A large amount of food (residue) in the stoma ch. Scope had to be limited to minimal maneuvering to reduce risk of aspiration given large particulate matter. Dilation of anastomos is was performed, but did not attempt to traverse the duodenal stricture toda y. - Gastritis. - A gastrojejunostomy was found, characterized by friable mucosa, an intact appearance, erythema, moderate stenosis, an intact staple line with visible stable and no stomal ulceration. T he anastomosis was dilated, but even at 12mm, there appeared to be some breakdown of the anastomotic line and given friable appearance i n inmmunocompromised patient, did not attempt to dilate larger than 12mm and will discuss further management options with the surgeon. - Acquired duodenal s tenosis was noted, knwon from previous evaluations. Not traversed given significant retained contents and need to minimize gastric manipulation with unprotected airway. - No specimens collected. Recommendation: - Observe patient's clinical course following t diya's procedure with therapeutic intervention. - Full liquid diet and if tolerated, can advanc e to low residual diet after a few days. - If advancing diet n ot tolerated, can consider repeat EGD for placement of Axios stent vs larger, more ag ressive dilation after discussion with surgeon given the anastomosis appeared friable even with minimal dilation to 12mm today. - GI will follow peripherally in the event repe at EGD intervention is required prior to discharge. Jose Olson MD JOSE OLSON MD 05/27/2021 6:07:47 PM This report has been signed electronically.JOSE OLSON MD Number of Addenda: 0 Note Initiated On: 05/27/2021 5:27 PM Total Procedure Duration Time 0 hours 6 minutes 48 sec onds Scope In: 5:37:40 PM Scope Out: 5:44:28 PM Specimen GLUCOSE BY METER, POCT (05/27/2021 11:41 AM CDT) Pathologist Sig [facility] Glucose POC 105 (H) 70 - 99 mg/dL [facility] O POINT OF CARE TESTING Specimen Blood - Blood specimen (specimen) Performing Organization Address City/State/ZIP Code Phon e Number [facility] POINT [address] [facility], [place] [address] OF CARE TESTING LAB ONLY-COMPLETE BLOOD COUNT WITH DIFFERENTIAL (05/27/2021 6:44 AM CDT) Pathologist Sig [facility] WBC 3.8 (L) 4.0 - 11.0 K/uL [address] RBC 4.03 3.80 - 5.[address] M/uL Hemoglobin 11.4 (L) 11.5 - 15.[address] g/dL Hematocrit 36.0 35.0 - 45.0 % [address] MCV 89.3 80.0 - 98.[address] MCH 28.3 25.5 - 34.[address] MCHC 31.7 31.5 - 36.[address] g/dL RDW-CV 13.7 11.5 - 15.5 % [address] RDW-SD 44.9 35.5 - 50.[address] Platelet Count 152 140 - 400 K/uL [address] MPV 9.6 8.5 - 12.[address] Seg Neut Absolute 3.2 1.8 - 8.0 K/uL [address] Lymphocytes Absolute 0.5 (L) 0.8 - 4.1 K/uL [place] [address] [facility] Monocytes Absolute 0.0 0.0 - 1.0 K/uL [address] Eosinophils Absolute 0.0 0.0 - 0.7 K/uL [place] [address] [facility] Basophil Absolute 0.0 0.0 - 0.2 K/uL [address] Immature Granulocyte 0.03 0.00 - 0.[address] Absolute K/uL Neutrophils Abs. 3,200 /uL [address] (Segs and Bands) Neutrophils Percent 84.9 % [address] Lymphocytes Percent 13.5 % [address] Monocytes Percent 0.5 % [address] Immature Granulocyte 0.8 % [address] Percent Eosinophils Percent 0.0 % [address] Basophil Percent 0.3 % [address] Nucleated RBC 0 /[address] Specimen Blood - Blood specimen (specimen) Performing Organization Address [facility] Phon e Number [address] [place] [id number] C-REACTIVE PROTEIN (INFLAMMATION) (05/27/2021 6:43 AM CDT) Pathologist Sig nature CRP 3.0 0.0 - 8.0 mg/L [address] Specimen Blood - Blood specimen (specimen) Performing Organization Address [facility] Phon e Number [address] [place] [id number] COMPREHENSIVE METABOLIC PANEL (05/27/2021 6:43 AM CDT) Pathologist Sig nature Glucose 107 (H) 70 - 100 mg/dL [address] BUN 9 6 - 22 mg/dL [address] Creatinine 0.67 0.60 - 1.[address] mg/dL BUN/Creatinine Ratio 13.4 10.0 - 25.[address] Sodium 141 135 - 145 meq/L [address] Potassium 4.2 3.5 - 5.3 meq/L [address] Chloride 110 99 - 110 meq/L [address] CO2 19 (L) 20 - 29 meq/L [address] Anion Gap with K 16 6 - 20 meq/L [address] Calcium 8.1 (L) 8.5 - 10.[address] mg/dL Protein Total 5.7 (L) 6.0 - 8.2 g/dL [address] Albumin 3.2 (L) 3.5 - 5.0 g/dL [address] Alkaline Phosphatase 54 30 - 150 U/L [address] AST - SGOT 14 0 - 35 U/L [address] ALT - SGPT 9 0 - 55 U/L [address] Bilirubin Total 0.4 0.2 - 1.2 mg/dL [address] Corrected Calcium 8.7 8.5 - 10.[address] mg/dL Age [address] eGFR Non- 86 >=[address] [place] mL/min/1.73m2 eGFR >90 >=[address] mL/min/1.73m2 Specimen Blood - Blood specimen (specimen) Performing Organization Address City/[facility]/ZIP Code Phon e Number [address] [place] [address] PROTIME/INR (05/27/2021 6:43 AM CDT) Pathologist Sig nature Protime 14.7 (H) 12.0 - 14.[address] INR 1.2 (H) 0.9 - 1.[address] Specimen Blood - Blood specimen (specimen) Narrative Performed At INR Standard Intensity = (2.0 - 3.0) [address] INR Higher Intensity = (2.5 - 3.5) Performing Organization Address City/[facility] Code Phon e Number [address] [place] [address] TYPE AND SCREEN (05/26/2021 6:28 PM CDT) Pathologist Sig nature ABO Type A [address] BLOOD BANK Rh Type Positive [address] BLOOD BANK Antibody Screen Negative [address] Comment: BLOOD BANK Allogenic Red Cells Available 05/26/2021 8CD Expiration Date 05/29/2021 23:[address] BLOOD BANK Specimen Blood - Blood specimen (specimen) Performing Organization Address City/State/ZIP Code Phon e Number [address] BLOOD BANK [address] [place] [address] CT ABDOMEN PELVIS WITH CONTRAST (05/26/2021 2:14 PM CDT) Specimen Narrative Performed At This result has an attachment that is no t available. [id number] Patient Name: SABRINA RETANA Date of : 1945 Procedure: CT ABDOMEN PELVIS WITH CONTRAST Date of Service: 05/26/2021 EXAM: CT ABDOMEN PELVIS WITH CONTRAST INDICATION: Nausea/vomiting, Bowel obstr uction suspected, abdominal pain, n/v and decreased stools. hx of duodenal obstruction, recent gastrojujenostomy. metastatic breast CA. ? obstruction TECHNIQUE: CT imaging was performed thro [facility] the abdomen and pelvis following IV contrast. COMPARISON(S): 04/16/2021 FINDINGS: Lower Chest: Small right pleural effusio n has decreased compared to the prior exam with persistent adjacent rounded atelectasis in the right lower lobe. Left lower lung is grossly clear. Liver: Cirrhotic appearing liver without focal lesions. Similar appearance of mildly prominent bile ducts in segment 4. Gallbladder: Multiple stones again seen in the gallbla dder. Bile ducts: Common bile duct is not significantly dila erasmo. Pancreas: Normal Spleen: Borderline enlarged up to 12.5 cm craniocaudal . Adrenal glands: Normal Kidneys: 1.2 cm cyst in the mid right ki dney, previously characterized as hemorrhagic/proteinaceous. 1.8 cm cyst in the mid left kidney. No hydronephrosis. No nephrolithiasis. Ureters: Normal Bladder: Bladder is moderately distended. No focal les ions. Pelvic viscera: Fibroid uterus is simila r compared to the prior exam. No suspicious adnexal mass. Stomach: Not distended. Moderate sized hiatal hernia. Gastrojejunostomy. Small bowel: Normal caliber Colon: Mild amount of air and stool in the colon. Appendix: Not identified. Vascular: Main portal vein is dilated up to 2.0 cm. No findings suspicious for thrombosis. Probable perisplenic varices. Lymph nodes: No lymphadenopathy. Peritoneum: No free fluid or pneumoperitoneum. Abdominal wall: Normal Bones: No acute fracture. Extensive meta static disease throughout the bones has not significantly changed compared to the prior exam. IMPRESSION: 1. No acute findings in the abdomen/pelv is. Contrast passed to the distal small bowel and colon without marked dilation of the small bowel. 2. Cirrhotic appearing liver without bay picious focal lesion. Borderline splenomegaly. 3. Small right pleural effusion has decreased compared to the prior exam. 4. Bladder is moderately distended without focal mass. 5. Extensive metastatic disease in the bones again see n. Finalized by: Rashaun Jack MD on 05/26/2021 2:34 PM CD T Patient/Procedure Information: [facility] MRN/GEO: [id number] Order Number: [id number] Accession Number: [id number] Ordering Provider: JOHN PAUL SEGOVIA Authorizing Provider: JOHN PAUL SEGOVIA Procedure Note Interface, Radiantres - 05/26/2021 2:36 PM CDT Patient Name: SABRINA RETANA Date of : 1945 Procedure: CT ABDOMEN PELVIS WITH CONTR AST Date of Service: 05/26/2021 EXAM: CT ABDOMEN PELVIS WITH CONTRAST INDICATION: Nausea/vomiting, Bowel obstr uction suspected, abdominal pain, n/v and decreased stools. hx of duodenal obstruction, recent gastrojujenostomy. metastatic breast CA. ? obstruction TECHNIQUE: CT imaging was performed thro [facility] the abdomen and pelvis following IV contrast. COMPARISON(S): 04/16/2021 FINDINGS: Lower Chest: Small right pleural effusio n has decreased compared to the prior exam with persistent adjacent rounded atelectasis in the right lower lobe. Left lower lung is grossly clear. Liver: Cirrhotic appearing liver without focal lesions. Similar appearance of mildly prominent bile ducts in segment 4. Gallbladder: Multiple stones again seen in the gallbladder. Bile ducts: Common bile duct is not sign ificantly dilated. Pancreas: Normal Spleen: Borderline enlarged up to 12.5 c m craniocaudal. Adrenal glands: Normal Kidneys: 1.2 cm cyst in the mid right ki dney, previously characterized as hemorrhagic/proteinaceous. 1.8 cm cyst in the mid left kidney. No hydronephrosis. No nephrolithiasis. Ureters: Normal Bladder: Bladder is moderately distended . No focal lesions. Pelvic viscera: Fibroid uterus is simila r compared to the prior exam. No suspicious adnexal mass. Stomach: Not distended. Moderate sized h iatal hernia. Gastrojejunostomy. Small bowel: Normal caliber Colon: Mild amount of air and stool in t he colon. Appendix: Not identified. Vascular: Main portal vein is dilated up to 2.0 cm. No findings suspicious for thrombosis. Probable perisplenic varices. Lymph nodes: No lymphadenopathy. Peritoneum: No free fluid or pneumoperit oneum. Abdominal wall: Normal Bones: No acute fracture. Extensive meta static disease throughout the bones has not significantly changed compared to the prior exam. IMPRESSION: 1. No acute findings in the abdomen/pelv is. Contrast passed to the distal small bowel and colon without marked dilation of the small bowel. 2. Cirrhotic appearing liver without bay picious focal lesion. Borderline splenomegaly. 3. Small right pleural effusion has decr eased compared to the prior exam. 4. Bladder is moderately distended witho ut focal mass. 5. Extensive metastatic disease in the b ones again seen. Finalized by: Rashaun Jack MD on 021 2:34 PM CDT Patient/Procedure Information: [facility] MRN/GEO: [id number] Order Number: [id number] Accession Number: [id number] Ordering Provider: JOHN PAUL SEGOVIA Authorizing Provider: JOHN PAUL PRATHER [facility] Performing Organization Address City/State/ZIP Code Phon e Number [id number] XRAY CHEST PORTABLE - (05/26/2021 11:24 AM CDT) Specimen Narrative Performed At This result has an attachment that is no t available. PS360 Patient Name: SABRINA RETANA Date of : 1945 Procedure: XRAY CHEST PORTABLE Date of Service: 05/26/2021 EXAM: XRAY CHEST PORTABLE INDICATION: shortness of breath COMPARISON(S): 04/01/2021. FINDINGS/IMPRESSION: Interval removal of the previously seen enteric tube. Left chest Port-A-Cath is stable and appropriately positioned. There is no acute focal consolidation. There is blunting of the bilateral costophreni c angles, right greater than left, suspi cious for small pleural effusions. No pneumothorax. The cardiac silhouette is normal. No acute osseous or soft tissue abnormality. Finalized by: Micheal De La Torre MD on 05/26/2021 11:35 AM CDT Patient/Procedure Information: [facility] MRN/GEO: [id number] Order Number: [id number] Accession Number: [id number] Ordering Provider: JOHN PAUL SEGOVIA Authorizing Provider: JOHN PAUL SEGOVIA Procedure Note Alexa, Radiantres - 05/26/2021 11:37 AM CDT Patient Name: SABRINA RETANA Date of : 1945 Procedure: XRAY CHEST PORTABLE Date of Service: 05/26/2021 EXAM: XRAY CHEST PORTABLE INDICATION: shortness of breath COMPARISON(S): 04/01/2021. FINDINGS/IMPRESSION: Interval removal of the previously seen enteric tube. Left chest Port-A-Cath is stable and appropriately positioned. There is no acute focal consolidation. There is blunting of the bilateral costophrenic angles, right greater than left, suspici ous for small pleural effusions. No pneumothorax. The cardiac silhouette is normal. No acute osseous or soft tissue abnormality. Finalized by: Micheal De La Torre MD on 11:35 AM CDT Patient/Procedure Information: [facility] MRN/GEO: [id number] Order Number: [id number] Accession Number: [id number] Ordering Provider: JOHN PAUL SEGOVIA Authorizing Provider: JOHN PAUL DANIEL Performing Organization Address City/State/ZIP Code Phon e Number [id number] MAGNESIUM (05/26/2021 11:10 AM CDT) Pathologist [facility] Magnesium 1.9 1.8 - 2.4 mg/dL [address] Specimen Blood - Blood specimen (specimen) Performing Organization Address City/State/ZIP Code Phon e Number [address] [facility] [place] [address] LAB ONLY-COMPLETE BLOOD COUNT WITH DIFFERENTIAL (05/26/2021 11:10 AM CDT) [facility] WBC 4.2 4.0 - 11.0 K/uL [address] RBC 3.96 3.80 - 5.[address] M/uL Hemoglobin 11.2 (L) 11.5 - 15.[address] g/dL Hematocrit 35.1 35.0 - 45.0 % [address] MCV 88.6 80.0 - 98.[address] MCH 28.3 25.5 - 34.[address] MCHC 31.9 31.5 - 36.[address] g/dL RDW-CV 14.2 11.5 - 15.5 % [address] RDW-SD 46.1 35.5 - 50.[address] Platelet Count 164 140 - 400 K/uL [address] MPV 10.0 8.5 - 12.[address] Seg Neut Absolute 2.9 1.8 - 8.0 K/uL [address] Lymphocytes Absolute 0.9 0.8 - 4.1 K/uL [place] [address] [facility] Monocytes Absolute 0.4 0.0 - 1.0 K/uL [address] Eosinophils Absolute 0.1 0.0 - 0.7 K/uL [place] [address] [facility] Basophil Absolute 0.0 0.0 - 0.2 K/uL [place] [address] [facility] Immature Granulocyte 0.03 0.00 - 0.[address] Absolute K/uL Neutrophils Abs. 2,900 /uL [place] [address] [facility] (Segs and Bands) Neutrophils Percent 67.4 % [address] Lymphocytes Percent 20.3 % [address] Monocytes Percent 9.0 % [address] Immature Granulocyte 0.7 % [place] [address] [facility] Percent Eosinophils Percent 2.1 % [place] [address] [facility] Basophil Percent 0.5 % [place] [address] [facility] Nucleated RBC 0 /[address] Specimen Blood - Blood specimen (specimen) Performing Organization Address City/[facility] Phon e Number [place] [address] [facility] [address] [place] [address], [place] [address] LIPASE (05/26/2021 11:10 AM CDT) Pathologist Sig nature Lipase 50 5 - 80 U/L [address] Specimen Blood - Blood specimen (specimen) Performing Organization Address [facility] Phon e Number [place] [address] [facility] [address] [place] [address], [place] [address] LACTIC ACID REFLEX TO REPEAT (05/26/2021 11:10 AM CDT) Pathologist Sig nature Lactic Acid 0.5 0.5 - 2.2 mmol/L [address] Specimen Blood - Blood specimen (specimen) Performing Organization Address [facility] Phon e Number [place] [address] [facility] [address] [place] [address], [place] [address] COMPREHENSIVE METABOLIC PANEL (05/26/2021 11:10 AM CDT) Pathologist Sig nature Glucose 88 70 - 100 mg/dL [address] BUN 8 6 - 22 mg/dL [address] Creatinine 0.64 0.60 - 1.[address] mg/dL BUN/Creatinine Ratio 12.5 10.0 - 25.[address] Sodium 141 135 - 145 meq/L [address] Potassium 3.2 (L) 3.5 - 5.3 meq/L [address] Chloride 106 99 - 110 meq/L [place] [address] [facility] CO2 22 20 - 29 meq/L [address] Anion Gap with K 16 6 - 20 meq/L [address] Calcium 8.9 8.5 - 10.5 [place] [address] [facility] mg/dL Protein Total 5.8 (L) 6.0 - 8.2 g/dL [address] Albumin 3.3 (L) 3.5 - 5.0 g/dL [address] Alkaline Phosphatase 55 30 - 150 U/L [address] AST - SGOT 15 0 - 35 U/L [address] ALT - SGPT 10 0 - 55 U/L [address] Bilirubin Total 0.6 0.2 - 1.2 mg/dL [address] Corrected Calcium 9.5 8.5 - 10.[address] mg/dL Age [address] eGFR Non- >90 >=[address] [place] mL/min/1.73m2 eGFR >90 >=[address] mL/min/1.73m2 Specimen Blood - Blood specimen (specimen) Performing Organization Address City/State/ZIP Code Phon e Number [address] [facility] [place] [address] documented in this encounter Visit Diagnoses Diagnosis Obstructed, gastric outlet - Primary Acquired hypertrophic pyloric stenosis Nausea Nausea alone Non-intractable vomiting with nausea, un specified vomiting type Duodenal obstruction Other obstruction of duodenum Pleural effusion, malignant Malignant pleural effusion Malignant neoplasm of overlapping sites of right breast in female, estrogen receptor positive (HCC) COPD (chronic obstructive pulmonary dise ase) (HCC) Chronic airway obstruction, not elsewher e classified Essential hypertension Unspecified essential hypertension Hyperlipidemia Other and unspecified hyperlipidemia Duodenal obstruction Other obstruction of duodenum documented in this encounter Discharge Diagnoses Not on filedocumented in this encounter Administered Medications Medication Order MAR Action Action Date Dose Rate Site doxazosin (CARDURA) tablet 2 mg Given 05/30/2021 9:27 AM CDT 2 mg 2 mg, Oral, Daily, First dose on Sat05/27/21 at 0900, Until Discontinued Given 05/29/2021 8:35 AM CDT 2 mg Given 05/28/2021 8:18 AM CDT 2 mg enoxaparin (LOVENOX) subcutaneous injection Given 05/29/2021 7:42 PM CDT 40 mg solution 40 mg 40 mg, Subcutaneous, Bedtime, First dose on Sat05/26/21 at 2100, Until Discontinued, To avoid the loss of [...] site after completion of the injection. Given 05/28/2021 8:11 PM CDT 40 mg Given 05/27/2021 9:19 PM CDT 40 mg hEParin 100 units/ mL injection for hepl ock FLUSH 500 Units (5 mL), IV, PRN per parameter, Starting on M on 05/29/21 at 1514, Until Discontinued, other (Specify), See admin instructions, 5 mL, Flush IMPLANTED VENOUS ACCESS DEVICE before removing needle; re-access and fl [facility] site at least every 4 weeks or per specific provider order if not accessed. Use a push / pause technique when flushing to create turbulence. HYDROcodone-acetaminophen (NORCO) 5-325 mg Given 05/30 2:26 AM CDT 1 tablet tablet 1 tablet 1 tablet, Oral, Bedtime prn, Starting on Sat05/30/21 at 0200, Until Discontinued, Severe leg pain, Total dose of acetaminophen from all acetaminophen containing products should not exceed 4 grams (4000 mg) per day. HYDROmorphone (DILAUDID) injection solution Given 02/2021 5:57 PM CDT 0.25 mg (conc: 0.5 mg/0.5mL) 0.5 mg 0.5 mg, IV, Every one hour prn, Starting on Sat05/26/21 at 1713, Until Discontinued, moderate pain, 0.5 mL, for pain Scale 4 to 6 or pain not relieved by medications for Pain Scale 1 - 3 Given 05/27/2021 5:05 PM CDT 0.5 mg Given 05/27/2021 2:30 PM CDT 0.5 mg letrozole (FEMARA) tablet 2.5 mg Given 05/29/2021 7:42 PM CDT 2.5 mg 2.5 mg, Oral, Bedtime, First dose on Sat05/26/21 at 2100, Until Discontinued, This medication is a high [...] chemotherapy as outlined by the region. Given 05/28/2021 8:08 PM CDT 2.5 mg Given 05/27/2021 9:23 PM CDT 2.5 mg magnesium oxide tablet 250 mg Given 05/30/2021 9:27 AM CDT 250 mg 250 mg, Oral, DAILY, First dose on Sat05/27/21 at 0900, Until Discontinued Given 05/29/2021 8:36 AM CDT 250 mg Given 05/28/2021 8:18 AM CDT 250 mg nalOXone (NARCAN) injection solution (vi al) 0.2 mg 0.2 mg, Injection, Every two minutes prn, Starting on 05/28/21 at 0159, Until Discontinued, other (Specify), opioid induced respirat ory depression - PARTIAL reversal, 0.5 mL, PARTIAL REVERSAL/RESPI RATORY DEPRESSION If respiratory rate less than 8/minute - call rapid response and administer (un til respiratory rate increases to 10/minute). Give IV (preferred), IM or S UBQ nalOXone (NARCAN) injection solution (vi al) 0.4 mg 0.4 mg, Injection, Every two minutes prn, Starting on 05/28/21 at 0159, Until Discontinued, other (Specify), opioid in duced respiratory arrest - FULL reversal, 1 mL, FULL REVERSAL/RESPIRATORY ARREST If patient is not breathing - call CODE BLUE and administer. Give IV (preferred), IM or SUBQ ondansetron (ZOFRAN) injection solution 4 mg Given 05/28/2021 8:06 PM CDT 4 mg 4 mg, IV, Every four hours prn, Starting on Sat05/26/21 at 1714, Until Discontinued, nausea, vomiting, 2 mL, Use FIRST. If ineffective after 15 minutes use metoclorpramide. If preference is to further dilute for IV administration: First draw up patient-specific dose, then dilute to 10 mL with 0.9% sodium chloride. pantoprazole (PROTONIX) for injection 40 mg Given 05/30/2021 9:28 AM CDT 40 mg vial 40 mg, IV, Two times a day, First dose on Sat05/27/21 at 0900, Until Discontinued, Administer dose greater than 40 mg over 4 minutes, dose of 40 mg or less to be administered over at least 2 minutes. Reconstitute with 10 mL 0.9% sodium chloride to yield 4 mg/mL. Administer dose IV push over at least 2 minutes. Given 05/29/2021 7:42 PM CDT 40 mg Given 05/29/2021 8:36 AM CDT 40 mg potassium chloride (KLOR-CON M20) CR tablet Given 03/2021 9:27 AM CDT 20 mEq 20 mEq 20 mEq, Oral, Two times a day, First dose on Sat05/26/21 at 2100, Until Discontinued, Tablet may be broken in half, but should not be crushed or chewed. Tablet may be dissolved in 4 oz of water. DO NOT give via feeding tube route as this can clog the tube. Given 05/29/2021 7:42 PM CDT 20 mEq Given 05/29/2021 8:36 AM CDT 20 mEq sodium chloride 0.9% flush (adult) 10 mL Given 05/29/2021 7:50 PM CDT 10 mL 10 mL, IV, Two times a day and prn, First dose on Sat05/26/21 at 2100, Until Discontinued, 10 mL, Flush PIV line as scheduled and as often as necessary before and after meds. Use a push / pause technique when flushing to create turbulence. Given 05/29/2021 8:37 AM CDT 10 mL Given 05/28/2021 8:19 AM CDT 10 mL sodium chloride 0.9% flush (adult) 10 mL Given 05/30/2021 9:27 AM CDT 10 mL 10 mL, IV, Daily and prn, First dose on Sat05/30/21 at 0900, Until Discontinued, 10 mL, Flush IMPLANTED VENOUS ACCESS DEVICE unused lumens as scheduled and as often as necessary before and after meds. Flush with saline prior to Heparin when de-accessing. Use a push / pause technique when flushing to create turbulence. Medication Order MAR Action Action Date Dose Rate Site barium sulfate 60% (E-Z-PAQUE) Given 05/29/2021 5:52 PM CDT 75 mL suspension 75 mL 75 mL, Oral, Now imaging, 1 dose, Starting on Sat05/29/21 at 1750, Until Sat05/29/21 at 1752, 355 mL, E-Z-PAQUE dexAMETHasone sodium phosphate (DECADRON) (4 Given 2:37 AM CDT 8 mg mg/mL) injection solution 8 mg 8 mg, IV, Every eight hours, 3 doses, First dose on Sat05/26/21 at 1930, Last dose on Sat05/27/21 at 1130, 2 mL, If preference is to further dilute for IV administration: First draw up patient-specific dose, then dilute to 10 mL with 0.9% sodium chloride. Given 05/26/2021 6:54 PM CDT 8 mg HYDROcodone-acetaminophen (NORCO) 5-325 mg Given 05/26 10:26 PM CDT 1 tablet tablet 1 tablet 1 tablet, Oral, One time, 1 dose, On Sat05/26/21 at 2200, Total dose of acetaminophen from all acetaminophen containing products should not exceed 4 grams (4000 mg) per day. HYDROcodone-acetaminophen (NORCO) 5-325 mg Given 05/28 2:04 AM CDT 1 tablet tablet 1 tablet 1 tablet, Oral, One time, 1 dose, On Sat05/28/21 at 0200, Total dose of acetaminophen from all acetaminophen containing products should not exceed 4 grams (4000 mg) per day. HYDROcodone-acetaminophen (NORCO) 5-325 mg Given 05/28 11:51 PM CDT 1 tablet tablet 1 tablet 1 tablet, Oral, One time, 1 dose, On Sat05/28/21 at 2325, Total dose of acetaminophen from all acetaminophen containing products should not exceed 4 grams (4000 mg) per day. iohexol (OMNIPAQUE) 350 mg/mL solution 150 Given 05/29/2021 5:52 PM CDT 150 mL mL 150 mL, Oral, Now imaging, 1 dose, Starting on Sat05/29/21 at 1750, Until Sat05/29/21 at 1752, 150 mL iohexol (OMNIPAQUE) 9 MG/ML oral solution Given 05/26/2021 12:44 PM CDT 100 mL 100 mL 100 mL, Oral, Every thirty minutes, 3 doses, First dose on Sat05/26/21 at 1135, Last dose on Sat05/26/21 at 1235, 500 mL, Dose #1 = 100 mL 90 minutes prior to scan Dose #2 = 100 mL 60 minutes prior to scan Dose #3 = 100 mL 30 minutes prior to scan Given 05/26/2021 12:06 PM CDT 100 mL Given 05/26/2021 11:46 AM CDT 100 mL iohexol (OMNIPAQUE) 9 MG/ML oral solution Given 05/26/2021 1:16 PM CDT 150 mL 150 mL 150 mL, Oral, One time, 1 dose, On Sat05/26/21 at 1305, 500 mL, Dose #4 = [address] scan metoclopramide (REGLAN) inj soln 5 mg Given 05/27/2021 5:08 PM CDT 5 mg 5 mg, IV, Four times a day, 4 doses, First dose on Sat05/26/21 at 1930, Last dose on Sat05/27/21 at 1700, 1 mL, If preference is to further dilute for IV administration: First draw up patient-specific dose, then dilute to 10 mL with 0.9% sodium chloride. Given 05/27/2021 12:30 PM CDT 5 mg Given 05/27/2021 9:42 AM CDT 5 mg ondansetron (ZOFRAN) injection solution 4 mg Given 05/26/2021 11:11 AM CDT 4 mg 4 mg, IV, Now, 1 dose, On Sat05/26/21 at 1050, 2 mL, If preference is to further dilute for IV administration: First draw up patient-specific dose, then dilute to 10 mL with 0.9% sodium chloride. ondansetron (ZOFRAN) injection solution 4 mg Given 05/26/2021 1:15 PM CDT 4 mg 4 mg, IV, Now, 1 dose, On Sat05/26/21 at 1315, 2 mL, If preference is to further dilute for IV administration: First draw up patient-specific dose, then dilute to 10 mL with 0.9% sodium chloride. potassium chloride 20 mEq in dextrose 5% 250 Given 11/2020 12:37 PM CDT 20 mEq mL 20 mEq, IV, Now, 1 dose, On Sat05/26/21 at 1200, 250 mL, Infuse at 10 mEq per hour. May increase to 20 mEq per hour if patient is on telemetry. potassium phosphate 45 mmol in dextrose 5% Given 05/29 6:49 PM CDT 45 mmol 500 mL 45 mmol, IV, One time, 1 dose, On Sat05/29/21 at 1830, 500 mL, *15 mmol of kphos contains 22 meq of potassium. Maximum rate 10 meq/hr of potassium (6.8 mmol/hr) if patient is not on telemetry, and 20 meq/hr if patient is on telemetry (13.6 mmol/hr), please choose duration accordingly. sodium chloride 0.9% IV solution New Bag 05/26/2021 11:15 AM CDT 150 mL/hr IV, at 150 mL/hr, Continuous, Starting on Sat05/26/21 at 1145, Until Sat05/26/21 at 2124, 1,000 mL sodium chloride 0.9% IV solution New Bag 05/27/2021 9:18 PM CDT 75 mL/hr IV, at 75 mL/hr, Continuous, Starting on Sat05/26/21 at 1720, Until Sat05/30/21 at 1109, 1,000 mL New Bag 05/27/2021 6:13 AM CDT 75 mL/hr Rate Change 05/26/2021 8:22 PM CDT 75 mL/hr documented in this encounter Active and Recently Administered Medications Times are shown in CDT. Medication Order 05/28/2021 05/29/2021 05/30/2021 barium sulfate 60% (E-Z-PAQUE) suspension 75 mL (COMPLETED) 1752 (Given - Provider: Stephen Bear MD - Comment: LOT: [id number]) 75 mL, Oral, Now imaging, 1 dose, Starti ng on Sat05/29/21 at 1750, Until Sat05/29/21 at 1752, 355 mL, E-Z-PAQUE doxazosin (CARDURA) tablet 2 mg 0818 (Given - Provider: Roberto Raza RN) 0835 (Given - Provider: Arlene Serna, RN) 09 (Given - Provider: Liz Goodwin, YAMILEX) 2 mg, Oral, Daily, First dose on Sat05/27/21 at 0900, Until Disco ntinued enoxaparin (LOVENOX) subcutaneous injection solution 4 0 mg 2010 (Given - Provider: Alan Raza, RN) 1941 (Given - Provider: Rhona Montague, YAMILEX) 2099 (Due) 40 mg, Subcutaneous, Bedtime, First dose on Sat05/26/21 at 2100, Until Discontinued, To avoid the loss of drug when using the 30 mg and 40 mg prefilled syringes, do not expel the air bubble from the syri nge before the injection. For ADULT pa tients: Administration should be alternated between the left and right anterolateral and left and right posterolateral abdominal wall. The whole length of the nee dle should be introduced into a skin fol d held between the thumb and forefinger; the skin fold should be held throughout the injection. To minimize bruising, do not rub the injection site after completi on of the injection. For PEDIATRIC pa tients: Administration should be alternated between appropriate sites for patient age/weight (infants/small children = upper thigh; older children/adolescents = l eft and right anterolateral and left and right posterolateral abdominal wall). During administration to infants/smaller children sometimes the whole length of the needle is not "introduced" during the i njection. Administer injection into a sk in fold held between the thumb and forefinger; the skin fold should be held throughout the injection. To minimize bruising, do not rub the injection site after completion of the injection. HYDROcodone-acetaminophen (NORCO) 5-325 mg tablet 1 ta blet (COMPLETED) 0204 (Given - Provider: Rhona Montague RN) 1 tablet, Oral, One time, 1 dose, On 05/28/21 at 0200, Total dose of acetaminophen from all acetaminophen containing products should not exceed 4 grams (4000 mg) per day. HYDROcodone-acetaminophen (NORCO) 5-325 mg tablet 1 ta blet (COMPLETED) 235 (Given - Provider: Lincoln Martel RN) 1 tablet, Oral, One time, 1 dose, On 05/28/21 at 2325, Total dose of acetaminophen from all acetaminophen containing products should not exceed 4 grams (4000 mg) per day. iohexol (OMNIPAQUE) 350 mg/mL solution 150 mL (COMPLETED) 1751 (Given - Provider: Stephen Bear MD - Comment: LOT: [id number] mixed with 65ML of water) 150 mL, Oral, Now imaging, 1 dose, Start ing on 05/29/21 at 1750, Until Sat05/29/21 at 1752, 150 mL letrozole (FEMARA) tablet 2.5 mg 2007 (Given - Provider: Yonny Raza RN) 1941 (Given - Provider: Rhona Montague, YAMILEX) 2099 (Due) 2.5 mg, Oral, Bedtime, First dose on Sat05/26/21 at 2100, Until Discontinued, This medication is a high risk hazardous drug. Wear 2 pairs of chemo gloves for administration. If administering oral liquid or sublingual, also wear a chemo gown an d face shield if there is a possibility of splashing. If unable to administer dose intact - contact pharmacy or reference policy for other administration options. Dispose of empty packages in the yellow hazardous container. Dispose of unused or partial packages in the black waste container and label must be marked as containing chemotherapy as outlined by the region. magnesium oxide tablet 250 mg 817 (Given - Provider: Alan Raza RN) 835 (Given - Provider: Arlene Serna, YAMILEX) 926 (Given - Provider: Liz Goodwin, YAMILEX) 250 mg, Oral, DAILY, First dose on 05/27/21 at 0900, Until Dis continued pantoprazole (PROTONIX) for injection 40 mg vial 817 (Given - Provider: Alan Raza, YAMILEX)2010 (Given - Provider: Alan Raza RN) 08 (Given - Provider: Arlene Serna, YAMILEX)1941 (Given - Provider: Rhona Montague, YAMILEX) 927 (Given - Provider: Liz Goodwin, YAMILEX)2099 (Due) 40 mg, IV, Two times a day, First dose o n 05/27/21 at 0900, Until Discontinued, Administer dose greater than 40 mg over 4 minutes, dose of 40 mg or less to be administered over at least 2 minutes. Rec onstitute with 10 mL 0.9% sodium chlorid e to yield 4 mg/mL. Administer dose IV push over at least 2 minutes. potassium chloride (KLOR-CON M20) CR tablet 20 mEq 081 8 (Given - Provider: Alan Raza RN)2007 (Given - Provider: Alan Raza RN) 0836 (Given - Provider: Arlene Serna, YAMILEX)194 (Given - Provider: Rhona Montague, YAMILEX) 09 (Given - Provider: Liz Goodwin, YAMILEX)2099 (Due) 20 mEq, Oral, Two times a day, First dos e on Sat05/26/21 at 2100, Until Discontinued, Tablet may be broken in half, but should not be crushed or chewed. Tablet may be dissolved in 4 oz of water. DO NOT g iraj via feeding tube route as this can clog the tube. potassium phosphate 45 mmol in dextrose 5% 500 mL (COMPLETED ) 1849 (Given - Provider: Arlene Serna RN) 0452 (Stopped Infusion - Provider: Srinivasan Montague RN) 45 mmol, IV, One time, 1 dose, On 03/13 at 1830, 500 mL, *15 mmol of kphos contains 22 meq of potassium. Maximum rate 10 meq/hr of potassium (6.8 mmol/hr) if patient is not on telemetry, and 20 me q/hr if patient is on telemetry (13.6 mm ol/hr), please choose duration accordingly. sodium chloride 0.9% flush (adult) 10 mL 0819 (Given - Provider: Alan Raza RN)2019 (Not Indicated - Provider: Alan Raza RN) 0837 (Given - Provider: Arlene Serna, YAMILEX)1950 (Given - Provider: Rhona Montague, YAMILEX) 0942 (Not Indicated - Provider: Liz Goodwin, YAMILEX)2099 (Due) 10 mL, IV, Two times a day and prn, Firs t dose on Sat05/26/21 at 2100, Until Discontinued, 10 mL, Flush PIV line as scheduled and as often as necessary before and after meds. Use a push / pause technique when flushing to create turbulence. sodium chloride 0.9% flush (adult) 10 mL(Linked Group 1) 0927 (Given - Provider: Liz Goodwin RN) 10 mL, IV, Daily and prn, First dose on Sat05/30/21 at 0900, Until Discontinued, 10 mL, Flush IMPLANTED VENOUS ACCESS DEVICE unused lumens as scheduled and as often as necessary before and after meds. Fl ush with saline prior to Heparin when de -accessing. Use a push / pause technique when flushing to create turbulence. Medication Order 05/28/2021 05/29/2021 05/30/2021 acetaminophen (TYLENOL) tablet 650 mg 650 mg, Oral, Every four hours prn, Star ting on Sat05/26/21 at 1706, Until Discontinued, mild pain, fever, pain scale 3 or less, Pain stratification is defined as follows for either analog scale (0-10) o r critical care pain observation tool (C POT, 0-8). a. No pain (0) b. Mild pain level (1-3) c. Moderate pain level (4-6) d. Severe pain level (greater than or equal to 7) Adult patients: Total dose of acetaminophen from all acetaminophen con taining products should not exceed 4 grams (4,000 mg) per day. Pediatric Patients 0 - 3 months: Maximum of 60 mg/kg/24 hours of acetaminophen. Pediatric Patients older than 3 months: Maximum of 75 mg/ kg/24 hours of acetaminophen (Never exceeding 4 grams/day). bisacodyl (DULCOLAX) suppository 10 mg 10 mg, Rectal, One time a day prn, Start ing on Sat05/26/21 at 1707, Until Discontinued, constipation, Use second for constipation. If patient cannot take oral medications, use first for constipation. hEParin 100 units/ mL injection for heplock FLUSH(Linked Group 1 ) 500 Units (5 mL), IV, PRN per parameter, Starting on Sat05/29/21 at 1514, Until Discontinued, other (Specify), See admin instructions, 5 mL, Flush IMPLANTED VENOUS ACCESS DEVICE before removing needle; r e-access and flush site at least every 4 weeks or per specific provider order if not accessed. Use a push / pause technique when flushing to create turbulence. HYDROcodone-acetaminophen (NORCO) 5-325 mg tablet 1 tablet 6 (Given - Provider: Rhona Montague, RN) 1 tablet, Oral, Bedtime prn, Starting on Sat05/30/21 at 0200, Until Discontinued, Severe leg pain, Total dose of acetaminophen from all acetaminophen containing products should not exceed 4 grams (4000 mg) per day. HYDROmorphone (DILAUDID) injection solution (conc: 0.5 mg/0. 5mL) 0.5 mg 1757 (Given - Provider: Arlene Serna RN - Comment: Pt requested smaller dose) 0.5 mg, IV, Every one hour prn, Starting on Sat05/26/21 at 1713, Until Discontinued, moderate pain, 0.5 mL, for pain Scale 4 to 6 or pain not relieved by medications for Pain Scale 1 - 3 nalOXone (NARCAN) injection solution (vial) 0.2 mg 0.2 mg, Injection, Every two minutes prn , Starting on Sat05/28/21 at 0159, Until Discontinued, other (Specify), opioid induced respiratory depression - PARTIAL reversal, 0.5 mL, PARTIAL REVERSAL/RESPIRAT ORY DEPRESSION If respiratory rate less than 8/minute - call rapid response and administer (until respiratory rate increases to 10/minute). Give IV (preferred), IM or SUBQ nalOXone (NARCAN) injection solution (vial) 0.4 mg 0.4 mg, Injection, Every two minutes prn , Starting on Sat05/28/21 at 0159, Until Discontinued, other (Specify), opioid induced respiratory arrest - FULL reversal, 1 mL, FULL REVERSAL/RESPIRATORY ARREST I f patient is not breathing - call CODE B LUE and administer. Give IV (preferred), IM or SUBQ ondansetron (ZOFRAN) injection solution 4 mg 2005 (Giv en - Provider: Alan Raza RN) 4 mg, IV, Every four hours prn, Starting on Sat05/26/21 at 1714, Until Discontinued, nausea, vomiting, 2 mL, Use FIRST. If ineffective after 15 minutes use metoclorpramide. If preference is to further di lute for IV administration: First draw u p patient-specific dose, then dilute to 10 mL with 0.9% sodium chloride. prochlorperazine (COMPAZINE) 10 mg/2 mL injection solution 5 mg 5 mg, IV, Every six hours prn, Starting on Sat05/26/21 at 1706, Until Discontinued, nausea, vomiting, 2 mL, Use SECOND. If ineffective and ondansetron used, call physician for alternative senna-docusate sodium (SENOKOT-S;PERICOLACE) tablet 1 tablet 1 tablet, Oral, Two times a day prn, Sta rting on Sat05/26/21 at 1707, Until Discontinued, constipation, Use first for constipation unless patient cannot take oral medications. Order Group 1: hEParin 100 units/ mL injection for heplock FLUSHJump to med 500 Units (5 mL), IV, PRN per parameter, Starting on Sat05/29/21 at 1514, Until Discontinued, other (Specify), See admin instructions, [...] IV, Daily and prn, First dose on Sat05/30/21 at 0900, Until Discontinued, 10 mL
Flush IMPLANTED VENOUS ACCESS DEVICE unused lumens as scheduled and as often as necessary before and after meds. Flush with saline prior to Heparin when de-accessing. Use a push / pause technique when flushing to create turbulence.
And CHG BATH Routine, DAILY 9AM, First occurrence on Sat05/30/21 at 0900 documented in this encounter
== END 2021-04-21 13:45 | disposition home or self-care (01) | DRG 948 ==
LOC: LL.MS 14:48
PROVIDERS: ADMIT Physician Assistant; ATTEND Physician Assistant
DX: R53.1 Weakness (principal); C78.7 Secondary malignant neoplasm of liver and intrahepatic bile duct; N39.0 Urinary tract infection, site not specified; D84.9 Immunodeficiency, unspecified; R10.84 Generalized abdominal pain; C50.911 Malignant neoplasm of unspecified site of right female breast; I50.9 Heart failure, unspecified; H54.7 Unspecified visual loss; J30.9 Allergic rhinitis, unspecified; E78.00 Pure hypercholesterolemia, unspecified; I11.0 Hypertensive heart disease with heart failure; J44.9 Chronic obstructive pulmonary disease, unspecified; K80.20 Calculus of gallbladder without cholecystitis without obstruction; K44.9 Diaphragmatic hernia without obstruction or gangrene; R33.9 Retention of urine, unspecified; M19.90 Unspecified osteoarthritis, unspecified site; M54.9 Dorsalgia, unspecified; M54.2 Cervicalgia; G89.29 Other chronic pain; M81.0 Age-related osteoporosis without current pathological fracture; E03.9 Hypothyroidism, unspecified; M85.80 Other specified disorders of bone density and structure, unspecified site; D64.9 Anemia, unspecified; Z98.890 Other specified postprocedural states; Z91.012 Allergy to eggs; Z88.2 Allergy status to sulfonamides; Z88.1 Allergy status to other antibiotic agents; Z88.0 Allergy status to penicillin; Z88.7 Allergy status to serum and vaccine; Z88.8 Allergy status to other drugs, medicaments and biological substances; Z79.899 Other long term (current) drug therapy; Z87.01 Personal history of pneumonia (recurrent); Z98.51 Tubal ligation status
CPT/HCPCS: 36415; 74019; 74177; 80053; 81001; 85025; 87086; 87088; 87186; 97110-GO; 97110-GP; 97161-GP; 97166-GO; 97530-GO; 97530-GP; 97535-GO; 99306; 99307; 99316; A9270-GY; J1642; J2765; Q9967

== ENCOUNTER 2023-10-24 12:42 | Emergency (ER) | payer MEDICARE, OTHER, MEDICAID | END 2023-10-24 14:30 | disposition home or self-care (01) | LOC: LL.ED 12:42 | DX: L97.521 Non-pressure chronic ulcer of other part of left foot limited to breakdown of skin (principal); I11.0 Hypertensive heart disease with heart failure; I50.9 Heart failure, unspecified; E78.00 Pure hypercholesterolemia, unspecified; J44.9 Chronic obstructive pulmonary disease, unspecified; E03.9 Hypothyroidism, unspecified; Z90.49 Acquired absence of other specified parts of digestive tract; Z90.710 Acquired absence of both cervix and uterus; Z79.899 Other long term (current) drug therapy; Z88.2 Allergy status to sulfonamides; Z88.8 Allergy status to other drugs, medicaments and biological substances; Z88.7 Allergy status to serum and vaccine; Z88.6 Allergy status to analgesic agent; Z91.012 Allergy to eggs | CPT/HCPCS: 99282; 99284 ==

== ENCOUNTER 2024-04-27 10:09 | Inpatient (IN) | payer MEDICARE, OTHER, MEDICAID ==
[2024-04-27] MEDS ORDERED: [UNRECOGNIZED DRUG - OTHER] PO PRN (17:19)
[2024-04-27] MEDS ORDERED: DIPHENHYD PO PRN (17:19)
[2024-04-27] MEDS ORDERED: SIME PO PRN (17:19)
[2024-04-27] MEDS ORDERED: LIDOCAINE PO PRN (17:19)
[2024-04-27] MEDS: Docusate Sodium 100 MG Cap PO SCH (17:57)
[2024-04-27] MEDS: Calcium Carbonate 500 MG Tab.Chew PO SCH (17:57)
[2024-04-27] MEDS: oxyCODONE ER 10 MG TAB.ER PO SCH (19:47)
[2024-04-27] MEDS: Pregabalin 25 MG Cap PO SCH (19:47)
[2024-04-27] MEDS: Acetaminophen 500 MG Tab PO SCH (19:50)
[2024-04-27] MEDS: traZODone 50 MG Tab PO SCH (19:50)
[2024-04-27] MEDS: Melatonin 3 MG Tab PO SCH (19:51)
[2024-04-27] MEDS ORDERED: Simethicone 125 MG Tab.Chew PO PRN (19:51)
[2024-04-28] MEDS: Doxazosin 2 MG Tab PO SCH (08:14)
[2024-04-28] MEDS: Furosemide 20 MG Tab PO SCH (08:16)
[2024-04-28] MEDS: Famotidine 20 MG Tab PO SCH (08:17)
[2024-04-28] MEDS: Cholecalciferol (Vitamin D3) 25 MCG Tab PO SCH (08:41)
[2024-04-28] MEDS: Magnesium Oxide 400 MG Tab PO SCH (12:14)
[2024-04-30] MEDS: oxyCODONE 5 MG Tab PO PRN (01:15)
[2024-04-30] MEDS: Pregabalin 25 MG Cap ONE (07:29)
[2024-04-30] MEDS: oxyCODONE ER 10 MG TAB.ER ONE (07:29)
[2024-04-30] MEDS: traZODone 50 MG Tab ONE (07:29)
[2024-05-01] MEDS: Lactase [Lactaid] 3,000 UNIT Tablet PO PRN (08:01)
[2024-05-01] MEDS: oxyCODONE 5 MG Tab PO PRN (23:35)
[2024-05-02] MEDS: oxyCODONE 5 MG Tab PO SCH (05:42)
[2024-05-02] MEDS: DOXAZOSIN 1 MG PO SCH (07:37)
[2024-05-02] MEDS: FAMOTIDINE 40 MG PO SCH (07:38)
[2024-05-02] MEDS: Mineral Oil/Petrolatum/Phenylephrine/Shark Liver Oil Oint 57 GM Tube RECTAL PRN (22:04)
[2024-05-03] MEDS: Furosemide 20 MG Tab PO SCH (11:37)
[2024-05-12] MEDS: NAPROXEN 500 MG PO SCH (19:24)
[2024-05-12] MEDS: LORazepam 0.5 MG Tab PO PRN (23:16)
[2024-05-13] MEDS: Sennosides/Docusate Sodium 50-8.6 MG Tab PO SCH (07:53)
[2024-05-13] MEDS: Ondansetron 4 MG Tab.DIS PO PRN (10:11)
[2024-05-13] MEDS: Morphine Oral Concentrate 20 MG/ML 30 ML Bottle PO PRN (22:37)
[2024-05-14] MEDS ORDERED: Acetaminophen 650 MG Supp RECTAL PRN (10:28)
[2024-05-14] MEDS ORDERED: Bisacodyl 10 MG Supp RECTAL PRN (10:29)
[2024-05-14] MEDS: LORazepam 0.5 MG Tab PO PRN (10:30)
[2024-05-14] MEDS: Morphine Oral Concentrate 20 MG/ML 30 ML Bottle PO PRN (10:30)
[2024-05-14] MEDS: LORazepam 0.5 MG Tab PO SCH (12:32)
[2024-05-14] MEDS: Morphine Oral Concentrate 20 MG/ML 30 ML Bottle PO SCH (12:33)
[2024-05-14] MEDS: Hyoscyamine 0.125 MG Tab.SL SL PRN (16:44)
== END 2024-05-14 20:35 | disposition expired | DRG 947 ==
LOC: LL.SWG 15:45
PROVIDERS: ADMIT Emergency Medicine; ATTEND Nurse Practitioner Family
DX: R53.1 Weakness (principal); J18.9 Pneumonia, unspecified organism; J91.0 Malignant pleural effusion; I50.32 Chronic diastolic (congestive) heart failure; I42.9 Cardiomyopathy, unspecified; C79.51 Secondary malignant neoplasm of bone; C78.7 Secondary malignant neoplasm of liver and intrahepatic bile duct; D84.9 Immunodeficiency, unspecified; C50.911 Malignant neoplasm of unspecified site of right female breast; Z66 Do not resuscitate; I11.0 Hypertensive heart disease with heart failure; I48.91 Unspecified atrial fibrillation; E78.00 Pure hypercholesterolemia, unspecified; M19.90 Unspecified osteoarthritis, unspecified site; D64.9 Anemia, unspecified; K74.60 Unspecified cirrhosis of liver; E03.9 Hypothyroidism, unspecified; M81.0 Age-related osteoporosis without current pathological fracture; G89.29 Other chronic pain; M54.9 Dorsalgia, unspecified; E83.42 Hypomagnesemia; K59.00 Constipation, unspecified; K21.9 Gastro-esophageal reflux disease without esophagitis; J44.9 Chronic obstructive pulmonary disease, unspecified; R33.9 Retention of urine, unspecified; Z88.6 Allergy status to analgesic agent; Z88.7 Allergy status to serum and vaccine; Z88.8 Allergy status to other drugs, medicaments and biological substances; Z88.2 Allergy status to sulfonamides; Z88.0 Allergy status to penicillin; Z98.51 Tubal ligation status; Z79.899 Other long term (current) drug therapy; Z98.890 Other specified postprocedural states
CPT/HCPCS: 97110-GP; 97162-GP; 97165-GO; 97530-GP; A9270-GY